=== PATIENT | female | born 1965 | race Caucasian/White ===

== ENCOUNTER 2017-11-30 13:08 | Inpatient (IN) | payer OTHER ==
--- NOTE | 2017-11-30 15:08 | PDOC ---
History of Present Illness <Walter Ortiz - Last Filed: 11/30/17 18:33> - History of Present Illness Initial Comments: 52 yo female with significant past medical history of CKD stage III, diabetic Nephropathy, nephrolithiasis, IDDM w/Diabetic neuropathy, hypertension, Hx of Breast CA s/p CTX (2010) and mastectomy, scleroderma and psoriasis presenting with low blood sugar after an episode of disorientation. States that she ate a large meal last night and stayed up an abnormally long amount of time (until 5: 00 AM watching the [employer] finals). She woke up at 6:00 AM and checked her sugar (280s) took her long acting as prescribed and went back to bed. Woke up at 12:00 slightly confused at which point her (at pt. bedside) noticed she "wasn't quite herself". He gave her two juices and an ensure then called 911 after she still seemed "off". EMS arrived and discovered a FS of 40s , after which they administered another juice. A repeat demonstrated a sugar in the 200s at which point her symptoms were resolving. Denies recent fevers, cough, sob, nausea, vomiting, diarrhea, or constipation. 11/30/17 15:09 <Shayne Wallace - Last Filed: 12/02/17 21:03> - General Chief Complaint: Blood Sugar Problem Stated Complaint: HYPOGLYCEMIA Time Seen by Provider: 11/30/17 15:07 Past History <Walter Ortiz - Last Filed: 11/30/17 18:33> - Past Medical History Anemia: Yes Asthma: No Cancer: Yes (MAY 2010 LEFT BREAST CA) Cardiac Disorders: No CVA: No COPD: No CHF: No Dementia: No Diabetes: Yes (IDDM MANY YEARS) GI Disorders: No Disorders: Yes (kidney stones, stent left) HTN: Yes (HX BORDERLINE, NO MEDS) Hypercholesterolemia: No Liver Disease: Yes (fatty liver) Seizures: No Thyroid Disease: Yes - Surgical History Abdominal Surgery: No Appendectomy: Yes Cardiac Surgery: No Cholecystectomy: No Lung Surgery: No Neurologic Surgery: No Orthopedic Surgery: No - Immunization History Immunization Up to Date: Yes - Suicide/Smoking/Psychosocial Hx Smoking History: Never smoked Have you smoked in the past 12 months: No Number of Cigarettes Smoked Daily: 0 Cigars Per Day: 0 Information on smoking cessation initiated: No Hx Alcohol Use: No Drug/Substance Use Hx: No Substance Use Type: None Hx Substance Use Treatment: No <Shayne Wallace - Last Filed: 12/02/17 21:03> - Past Medical History Allergies/Adverse Reactions: Allergies Allergy/AdvReac Type Severity Reaction Status Date / Time Sulfa (Sulfonamide Allergy Intermediate Hives Verified 11/30/17 13:10 Antibiotics) [Sulfa(Sulfonamide Antibiotics)] terbinafine HCl Allergy Intermediate Rash Verified 11/30/17 13:10 [From Lamisil] Home Medications: Ambulatory Orders Levothyroxine [Synthroid -] 25 mcg PO DAILY@0700 #30 tablet 06/20/14 Metoprolol Succinate [Toprol XL -] 12.5 mg PO DAILY 07/19/14 Insulin (Novolog) [Novolog Flexpen -] 5 units SQ HS 02/14/15 Acetaminophen [Pain Relief] 650 mg PO PRN 11/30/17 Alpha Lipoic Acid 200 mg PO DAILY 11/30/17 Azelastine HCl 137 mcg NS PRN 11/30/17 Mauri Cit/Mag/D3/Zn/Water Pipe Installer/Atif/Bor [Citracal-Vit D + Magnesium Tab] 1 each PO DAILY 11/30/17 Cranberry Fruit Concentrate [Azo Cranberry] 250 mg PO DAILY 11/30/17 Docusate Sodium [Colace] 100 mg PO PRN PRN 11/30/17 Folic Acid 1 mg PO DAILY 11/30/17 Glucagon - 1 mg IJ ASDIR PRN 11/30/17 L. Acidophilus/L.bulgaricus [Floranex Tablet] 1 each PO DAILY 11/30/17 Magnesium Chloride [Slow-Mag -] 64 mg PO DAILY 11/30/17 Multivitamin [One Daily] 1 each PO DAILY 11/30/17 Omeprazole 20 mg PO DAILY 11/30/17 Pramipexole Di-HCl [Pramipexole Dihydrochloride] 0.25 mg PO DAILY 11/30/17 Sennosides [Senna] 8.6 mg PO PRN PRN 11/30/17 Cefuroxime Axetil [Ceftin -] 250 mg PO HS #5 tablet 12/02/17 Insulin (Levemir) [Levemir Vial] 4 units SQ HS ml 12/02/17 Insulin (Levemir) [Levemir Vial] 6 units SQ DAILY@0700 ml 12/02/17 Review of Systems - Review of Systems Constitutional: Yes: Chills, Weakness. No: Fever, Loss of Appetite HEENTM: No: Blurred Vision Respiratory: No: Cough, Shortness of Breath Cardiac (ROS): No: Chest Pain ABD/GI: No: Nausea, Vomiting : No: Dysuria, Urgency Musculoskeletal: No: Back Pain, Joint Pain Integumentary: Yes: Erythema. No: Rash Neurological: No: Headache, Numbness Endocrine: No: Excessive Sweating, Flushing <Shayne Wallace - Last Filed: 12/02/17 21:03> *Physical Exam - Vital Signs Last Vital Signs Temp Pulse Resp BP Pulse Ox 97.7 F 88 16 124/73 100 11/30/17 13:08 11/30/17 17:11 11/30/17 17:11 11/30/17 17:11 11/30/17 17:11 <Walter Ortiz - Last Filed: 11/30/17 18:33> - Vital Signs Last Vital Signs Temp Pulse Resp BP Pulse Ox 97.7 F 79 12 105/54 94 L 11/30/17 13:08 11/30/17 13:08 11/30/17 13:08 11/30/17 13:08 11/30/17 13:08 - Physical Exam General Appearance: Yes: Nourished, Appropriately Dressed. No: Apparent Distress HEENT: positive: EOMI, FLOR, Normal ENT Inspection, Normal Voice Neck: positive: Trachea midline, Normal Thyroid, Supple. negative: Tender, Rigid Respiratory/Chest: positive: Lungs Clear, Normal Breath Sounds. negative: Chest Tender, Respiratory Distress, Accessory Muscle Use Cardiovascular: positive: Regular Rhythm, Regular Rate Vascular Pulses: Dorsalis-Pedis (R): 0 Extremity: positive: Normal Capillary Refill, Normal Range of Motion. negative : Normal Inspection (psoriasis noted on back and lateral neck and right shoulder. Also some erythema on the medial aspect of the distal), Tender Integumentary: positive: Dry, Warm, Ecchymosis. negative: Normal Color Neurologic: positive: Fully Oriented, Alert. negative: Normal Mood/Affect <Shayne Wallace - Last Filed: 12/02/17 21:03> ED Treatment Course - LABORATORY CBC & Chemistry Diagram: 11/30/17 16:05 11/30/17 16:05 - ADDITIONAL ORDERS Additional order review: Laboratory Results 11/30/17 11/30/17 11/30/17 16:44 16:05 14:39 Sodium 135 L Potassium 5.8 H Chloride 99 Carbon Dioxide 18 L Anion Gap 18 H BUN 22 H Creatinine 2.5 H Creat Clearance w eGFR 20.22 POC Glucometer 271.22867 Random Glucose 440 H* Calcium 8.3 L Total Bilirubin 0.6 AST 124 H ALT 50 Alkaline Phosphatase 461 H Total Protein 6.2 L Albumin 2.5 L Urine Color Dkyellow Urine Appearance Slcloudy Urine pH 5.0 D Ur Specific [place] 1.011 Urine Protein 1+ H Urine Glucose (UA) 3+ H Urine Ketones Trace H Urine Blood Negative Urine Nitrite Negative Urine Bilirubin Negative Urine Urobilinogen 4.0 e.u/dl H Ur Leukocyte Esterase 3+ H Urine WBC (Auto) 52 Urine RBC (Auto) 1 Ur Epithelial Cells Rare Urine Bacteria Many Urine Mucus Few 11/30/17 15:36 Influenza Types A,B Antigen (HERMAN) - Final Nasopharyngeal Swab - Final 11/30/17 11/30/17 16:05 14:39 RBC 2.80 L MCV 100.0 H MCHC 32.8 RDW 14.8 MPV 6.8 L Neutrophils % 66.2 D Lymphocytes % 19.4 D Monocytes % 12.1 H Eosinophils % 1.8 Basophils % 0.5 POC Glucometer 271.07921 - Medications Given in the ED: ED Medications Discontinued Medications Generic Name Dose Route Start Last Admin Trade Name Lelo PRN Reason Stop Dose Admin Insulin Human Regular 5 units 11/30/17 17:12 11/30/17 17:52 Novolin R Vial *For Ivpush Or Iv Drip Only* IVPUSH 11/30/17 17:13 5 unit ONCE ONE Administration Sodium Chloride 1,000 ml 11/30/17 16:40 11/30/17 16:45 Normal Saline - IV 11/30/17 16:41 1,000 ml ONCE ONE Administration <Ou,Walter - Last Filed: 11/30/17 18:33> - LABORATORY CBC & Chemistry Diagram: 12/02/17 06:30 12/02/17 06:30 - ADDITIONAL ORDERS Additional order review: Laboratory Results 11/30/17 14:39 POC Glucometer 271.96653 11/30/17 14:39 POC Glucometer 271.21855 <Shayne Wallace - Last Filed: 12/02/17 21:03> Medical Decision Making - Medical Decision Making 52 year old female with "chills" after presenting severely hypoglyemic to EMS ( 40s). FS glucose returned > 400 after multiple juices and a nutritional shake. Given 1 L NS and 5 of regular insulin IV. Originaly reason for hypoglycemia was likely due to no PO intake after long acting insulin administration this morning. Labs returned significant for GENESIS on CKD (2.5 vs. 1.1 3 years prior). Will admit patient for further workup for hypoglycemia and GENESIS on CKD vs significantly worsened CKD and monitoring given increased half life of renally mediated insulin. 12/02/17 20:57 <Shayne Wallace - Last Filed: 12/02/17 21:03> *DC/Admit/Observation/Transfer - Discharge Dispostion Admit: Yes <Walter Ortiz - Last Filed: 11/30/17 18:33> <Shayne Wallace - Last Filed: 12/02/17 21:03> Diagnosis at time of Disposition: Acute renal failure
[2017-11-30 16:14] LABS: BASO % 0.5 % (0-2.0); EOS % 1.8 % (0-4.5); HEMOGLOBIN 9.2 GM/dL (10.7-15.3); LYMPH % 19.4 % (8-40); MCH 32.8 pg (25.7-33.7); MCHC 32.8 g/dl (32.0-36.0); MEAN PLT VOLUME 6.8 fl (7.5-11.1); MONO % 12.1 % (3.8-10.2); NEUT % 66.2 % (42.8-82.8); RDW 14.8 % (11.6-15.6); WHITE BLOOD COUNT 2.6 K/mm3 (4.0-10.0)
[2017-11-30 16:29] LABS: CHLORIDE 99 mmol/L (98-107); SODIUM 135 mmol/L (136-145)
--- NOTE | 2017-11-30 16:32 | PDOC ---
Attending Attestation - Resident Resident Name: Shayne Wallace - ED Attending Attestation I have performed the following: I have examined & evaluated the patient, The case was reviewed & discussed with the resident, I agree w/resident's findings & plan, Exceptions are as noted - HPI HPI: 11/30/17 16:27 52 F with h/o CKD stage III, diabetic Nephropathy, nephrolithiasis, IDDM w/ Diabetic neuropathy, hypertension, Hx of Breast CA s/p CTX (2010) and mastectomy , scleroderma and psoriasis, presenting to ER with episode of hypoglycemia. Pt states that she was up late watching TV. At around 5am, she checked her sugar and found it to be in the 200s, so she subsequently took 6u of long acting insulin. Pt then went to bed without eating anything. When she awoke today, she felt very groggy and confused. Her gave her a juice and called 911. EMS arrived and found pt's sugar to be 47. Pt was given more juice and brought to ER , where her repeat fingerstick was 200s. Pt now reports that she feels back to baseline. Denies any recent F/C. Denies N/V/D. Denies CP/SOB. - Physicial Exam PE: 11/30/17 16:29 "GENERAL: Awake, alert, and fully oriented, in no acute distress HEAD: No signs of trauma EYES: PERRLA, EOMI, sclera anicteric, conjunctiva clear ENT: Auricles normal inspection, hearing grossly normal, nares patent, oropharynx clear without exudates. Moist mucosa NECK: Nontender, no stepoffs, Normal ROM, supple, no lymphadenopathy, JVD, or masses LUNGS: Breath sounds equal, clear to auscultation bilaterally. No wheezes, and no crackles HEART: Regular rate and rhythm, normal S1 and S2, no murmurs, rubs or gallops ABDOMEN: Soft, nontender, normoactive bowel sounds. No guarding, no rebound. No masses EXTREMITIES: Normal range of motion, no edema. No clubbing or cyanosis. No cords, erythema, or tenderness NEUROLOGICAL: Cranial nerves II through XII intact. 5/5 strength and sensation in all extremities, Normal speech, normal gait SKIN: Warm, Dry, normal turgor, no rashes or lesions noted. " - Medical Decision Making 11/30/17 16:29 52 F with hypoglycemia after taking extra insulin. Now normoglycemic s/p juice, with no complaints and normal mental status. - Labs - Repeat fingerstick 11/30/17 18:19 CBC,CMP WBC 2.6 K/mm3 (4.0-10.0) L 11/30/17 16:05 RBC 2.80 M/mm3 (3.60-5.2) L 11/30/17 16:05 Hgb 9.2 GM/dL (10.7-15.3) L D 11/30/17 16:05 Hct 28.0 % (32.4-45.2) L 11/30/17 16:05 MCV 100.0 fl (80-96) H 11/30/17 16:05 MCH 32.8 pg (25.7-33.7) 11/30/17 16:05 MCHC 32.8 g/dl (32.0-36.0) 11/30/17 16:05 RDW 14.8 % (11.6-15.6) 11/30/17 16:05 Plt Count 144 K/MM3 (134-434) D 11/30/17 16:05 MPV 6.8 fl (7.5-11.1) L 11/30/17 16:05 Neutrophils % 66.2 % (42.8-82.8) D 11/30/17 16:05 Lymphocytes % 19.4 % (8-40) D 11/30/17 16:05 Monocytes % 12.1 % (3.8-10.2) H 11/30/17 16:05 Eosinophils % 1.8 % (0-4.5) 11/30/17 16:05 Basophils % 0.5 % (0-2.0) 11/30/17 16:05 Platelet Estimate Decreased 11/30/17 16:05 Platelet Comment No clumping noted 11/30/17 16:05 Sodium 135 mmol/L (136-145) L 11/30/17 16:05 Potassium 5.8 mmol/L (3.5-5.1) H 11/30/17 16:05 Chloride 99 mmol/L (98-107) 11/30/17 16:05 Carbon Dioxide 18 mmol/L (21-32) L 11/30/17 16:05 Anion Gap 18 (8-16) H 11/30/17 16:05 BUN 22 mg/dL (7-18) H 11/30/17 16:05 Creatinine 2.5 mg/dL (0.55-1.02) H 11/30/17 16:05 Creat Clearance w eGFR 20.22 (>60) 11/30/17 16:05 POC Glucometer 271.83623 UNITS (80-120) 11/30/17 14:39 Random Glucose 440 mg/dL (74-106) H* 11/30/17 16:05 Calcium 8.3 mg/dL (8.5-10.1) L 11/30/17 16:05 Total Bilirubin 0.6 mg/dL (0.2-1.0) 11/30/17 16:05 AST 124 U/L (15-37) H 11/30/17 16:05 ALT 50 U/L (12-78) 11/30/17 16:05 Alkaline Phosphatase 461 U/L (45-117) H 11/30/17 16:05 Total Protein 6.2 g/dl (6.4-8.2) L 11/30/17 16:05 Albumin 2.5 g/dl (3.4-5.0) L 11/30/17 16:05 Labs notable for K 5.8 (slightly hemolyzed) and Cr 2.5, bumped from Cr 1 previously. UA also consistent with UTI. Will cover with keflex. Pt's hypoglycemia may be 2/2 poor insulin clearance given worsening renal function. Will admit to hospitalist for further work up of GENESIS.
[2017-11-30 16:35] LABS: ALBUMIN 2.5 g/dl (3.4-5.0); ANION GAP 18 (8-16); BILIRUBIN,TOTAL 0.6 mg/dL (0.2-1.0); BLOOD UREA NITROGEN 22 mg/dL (7-18); CALCIUM 8.3 mg/dL (8.5-10.1); CO2 18 mmol/L (21-32); CREATININE 2.5 mg/dL (0.55-1.02); TOT PROT 6.2 g/dl (6.4-8.2)
[2017-11-30 16:36] LABS: PLATELET COUNT 144 K/MM3 (134-434); PLATELET ESTIMATE DECREASED
[2017-11-30 16:38] LABS: GLUCOSE,RANDOM 440 mg/dL (74-106); POTASSIUM 5.8 mmol/L (3.5-5.1)
[2017-11-30] MEDS ORDERED: SODIUM CHLORIDE 0.9% 1000 ML INFUS.BAG IV ONE (16:40)
[2017-11-30 16:41] LABS: ALK PHOS 461 U/L (45-117); SGPT/ALT 50 U/L (12-78)
[2017-11-30 16:42] LABS: SGOT/AST 124 U/L (15-37)
[2017-11-30 17:09] LABS: URINE APPEARANCE SLCLOUDY; URINE BILIRUBIN NEGATIVE (NEGATIVE); URINE BLOOD NEGATIVE (NEGATIVE); URINE COLOR DKYELLOW; URINE GLUCOSE (UA) 3+ (NEGATIVE); URINE KETONE TRACE (NEGATIVE); URINE NITRITE NEGATIVE (NEGATIVE); URINE UROBILINOGEN 4.0 E.U/dl mg/dL (0.2-1.0)
[2017-11-30 17:10] LABS: URINE LEUK ESTERASE 3+ (NEGATIVE); URINE PROTEIN 1+ (NEGATIVE)
[2017-11-30 17:12] LABS: EPI CELLS RARE /HPF (FEW); URINE BACTERIA MANY /hpf (NONE SEEN); URINE MUCUS FEW
[2017-11-30] MEDS ORDERED: INSULIN REGULAR HUMAN 100 UNITS/ML *VIAL IVPUSH ONE (17:12)
[2017-11-30] MEDS ORDERED: INSULIN REGULAR HUMAN 100 UNITS/ML *VIAL ONE (17:54)
[2017-11-30] MEDS ORDERED: CEPHALEXIN MONOHYDRATE 500 MG CAPSULE (UD) PO ONE (18:32)
[2017-11-30] MEDS ORDERED: CEPHALEXIN MONOHYDRATE 250 MG CAPSULE (FP) ONE (18:37)
[2017-11-30 19:46] LABS: ALBUMIN 2.5 g/dl (3.4-5.0); ANION GAP 13 (8-16); BLOOD UREA NITROGEN 24 mg/dL (7-18); CALCIUM 7.8 mg/dL (8.5-10.1); CHLORIDE 100 mmol/L (98-107); CO2 22 mmol/L (21-32); POTASSIUM 5.6 mmol/L (3.5-5.1); SODIUM 135 mmol/L (136-145)
[2017-11-30 19:49] LABS: ALK PHOS 448 U/L (45-117); BILIRUBIN,TOTAL 0.6 mg/dL (0.2-1.0); CREATININE 2.6 mg/dL (0.55-1.02); SGOT/AST 111 U/L (15-37); SGPT/ALT 47 U/L (12-78)
[2017-11-30 19:52] LABS: GLUCOSE,RANDOM 536 mg/dL (74-106)
[2017-11-30] MEDS ORDERED: INSULIN (NOVOLOG) ASPART 100 UNITS/ML 10ML VIAL SQ ONE (20:19)
--- NOTE | 2017-11-30 20:57 | HP ---
CHIEF COMPLAINT: hypoglycemia PCP: Lion Endo: [facility]/onc: Marcelino HISTORY OF PRESENT ILLNESS: This is a 52 year old female with a significant past medical history of IDDM since age 4 who presented to the ED s/p episode hypglycemia which she treated with several glasses of juice and an ensure. Her blood sugar raquel into 200s with EMS and they transported her here. She states that her usual sleep regimen was interrupted by staying up to watch the [place] [employer] on TV and she slept through her meal even though she had taken her insulin. She reports no complaints on exam. Her BGMs have remained high in the emergency department. ER course was notable for: (1) BUN/Cr elevated (2) Potassium elevated, glucose elevated (3) u/a c/w UTI Recent Travel: pt denies PAST MEDICAL HISTORY: IDDM with nephropathy, CKD stage3, nephrolithiasis, chemo induced neuropathy, HTN, BrCA 2009, scleroderma, psoriasis, fatty liver, B/L wrist fx, tibia fx, osteoporosis PAST SURGICAL HISTORY: appendectomy B/L cataracts 11/18, 02/16 glaucoma surgery Social History: Smoking: pt denies Alcohol: pt denies Drugs: pt denies Family History: CA: Grandparent (paternal grandmother --colon ca//maternal grandmother --breast cancer), Father (colon polyps- precancerous; had kidney stones), Mother (; also was on dialysis; had no diabetes), Other: Sister (kidney stones younger sister) Allergies Sulfa (Sulfonamide Antibiotics) [Sulfa(Sulfonamide Antibiotics)] Allergy ( Intermediate, Verified 11/30/17 13:10) Hives SWELLING terbinafine HCl [From Lamisil] Allergy (Intermediate, Verified 11/30/17 13:10) Rash HOME MEDICATIONS: 3 Medication Instructions Recorded Levothyroxine [Synthroid -] 25 mcg PO DAILY@0700 #30 tablet 06/20/14 Metoprolol Succinate [Toprol XL -] 12.5 mg PO DAILY 07/19/14 Insulin (Levemir) [Levemir Flexpen 6 units SQ DAILY 02/14/15 -] Insulin Levemir 4 units SQ HS 02/14/15 novolog sliding scale with meals BGM 101-150 2u BGM 151-200 3u BGM 201-250 4u BGM 251-300 5u Acetaminophen [Pain Relief] 650 mg PO PRN 11/30/17 Alpha Lipoic Acid 200 mg PO DAILY 11/30/17 Azelastine HCl 137 mcg NS PRN 11/30/17 Mauri Cit/Mag/D3/Zn/Stock Grader/Atif/Bor 1 each PO DAILY 11/30/17 [Citracal-Vit D + Magnesium Tab] Cranberry Fruit Concentrate [Azo 250 mg PO DAILY 11/30/17 Cranberry] Docusate Sodium [Colace] 100 mg PO PRN PRN 11/30/17 Folic Acid 1 mg PO DAILY 11/30/17 Glucagon - 1 mg IJ ASDIR PRN 11/30/17 L. Acidophilus/L.bulgaricus 1 each PO DAILY 11/30/17 [Floranex Tablet] Magnesium Chloride [Slow-Mag -] 64 mg PO DAILY 11/30/17 Multivitamin [One Daily] 1 each PO DAILY 11/30/17 Omeprazole 20 mg PO DAILY 11/30/17 Pramipexole Di-HCl [Pramipexole 0.25 mg PO DAILY 11/30/17 Dihydrochloride] Sennosides [Senna] 8.6 mg PO PRN PRN 11/30/17 pt informs me that she no longer takes any of her supplements or pramipexole. REVIEW OF SYSTEMS CONSTITUTIONAL: Absent: fever, chills, diaphoresis, generalized weakness, malaise, loss of appetite, weight change HEENT: Absent: rhinorrhea, nasal congestion, throat pain, throat swelling, difficulty swallowing, mouth swelling, ear pain, eye pain, visual changes CARDIOVASCULAR: Absent: chest pain, syncope, palpitations, irregular heart rate, lightheadedness , peripheral edema RESPIRATORY: Absent: cough, shortness of breath, dyspnea with exertion, orthopnea, wheezing, stridor, hemoptysis GASTROINTESTINAL: Absent: abdominal pain, abdominal distension, nausea, vomiting, diarrhea, constipation, melena, hematochezia GENITOURINARY: Absent: dysuria, frequency, urgency, hesitancy, hematuria, flank pain, genital pain MUSCULOSKELETAL: Absent: myalgia, arthralgia, joint swelling, back pain, neck pain SKIN: Absent: rash, itching, pallor HEMATOLOGIC/IMMUNOLOGIC: Absent: easy bleeding, easy bruising, lymphadenopathy, frequent infections ENDOCRINE: Absent: unexplained weight gain, unexplained weight loss, heat intolerance, cold intolerance NEUROLOGIC: Present: mental status changes Absent: headache, focal weakness or paresthesias, dizziness, unsteady gait, seizure, bladder or bowel incontinence PSYCHIATRIC: Absent: anxiety, depression, suicidal or homicidal ideation, hallucinations. PHYSICAL EXAMINATION Vital Signs - 24 hr 3 11/30/17 11/30/17 11/30/17 13:08 17:11 20:08 Temperature 97.7 F 98.7 F Pulse Rate 79 Pulse Rate [ 88 85 Left Apical] Respiratory 12 16 24 Rate Blood Pressure 105/54 Blood Pressure 124/73 115/64 [Right Arm] O2 Sat by Pulse 94 L 100 94 L Oximetry (%) GENERAL: Awake, alert, and fully oriented, in no acute distress. HEAD: Normal with no signs of trauma. EYES: Pupils equal, round and reactive to light, extraocular movements intact, sclera anicteric, conjunctiva clear. No lid lag. EARS, NOSE, THROAT: Ears normal, nares patent, oropharynx clear without exudates. Moist mucous membranes. NECK: Normal range of motion, supple without lymphadenopathy, JVD, or masses. LUNGS: Breath sounds equal, clear to auscultation bilaterally. No wheezes, and no crackles. No accessory muscle use. HEART: Regular rate and rhythm, normal S1 and S2 without murmur, rub or gallop. ABDOMEN: Soft, nontender, not distended, normoactive bowel sounds, no guarding, no rebound, no masses. No hepatomegaly or splenomegaly. MUSCULOSKELETAL: Normal range of motion at all joints. No bony deformities or tenderness. No CVA tenderness. UPPER EXTREMITIES: 2+ pulses, warm, well-perfused. No cyanosis. No clubbing. No peripheral edema. LOWER EXTREMITIES: 2+ pulses, warm, well-perfused. No calf tenderness. No peripheral edema. NEUROLOGICAL: Cranial nerves II-XII intact. Normal speech. Normal gait. PSYCHIATRIC: Cooperative. Good eye contact. Appropriate mood and affect. SKIN: Warm, dry, normal turgor, no rashes or lesions noted, normal capillary refill. Laboratory Results - last 24 hr 3 11/30/17 11/30/17 11/30/17 14:39 16:05 16:05 WBC 2.6 L RBC 2.80 L Hgb 9.2 L D Hct 28.0 L MCV 100.0 H MCH 32.8 MCHC 32.8 RDW 14.8 Plt Count 144 D MPV 6.8 L Neutrophils % 66.2 D Lymphocytes % 19.4 D Monocytes % 12.1 H Eosinophils % 1.8 Basophils % 0.5 Platelet Estimate Decreased Platelet Comment No clumping noted Sodium 135 L Potassium 5.8 H Chloride 99 Carbon Dioxide 18 L Anion Gap 18 H BUN 22 H Creatinine 2.5 H Creat Clearance w eGFR 20.22 POC Glucometer 271.07445 Random Glucose 440 H* Calcium 8.3 L Total Bilirubin 0.6 AST 124 H ALT 50 Alkaline Phosphatase 461 H Total Protein 6.2 L Albumin 2.5 L Urine Color Urine Appearance Urine pH Ur Specific [place] Urine Protein Urine Glucose (UA) Urine Ketones Urine Blood Urine Nitrite Urine Bilirubin Urine Urobilinogen Ur Leukocyte Esterase Urine WBC (Auto) Urine RBC (Auto) Ur Epithelial Cells Urine Bacteria Urine Mucus 3 11/30/17 11/30/17 16:44 19:14 WBC RBC Hgb Hct MCV MCH MCHC RDW Plt Count MPV Neutrophils % Lymphocytes % Monocytes % Eosinophils % Basophils % Platelet Estimate Platelet Comment Sodium 135 L Potassium 5.6 H Chloride 100 Carbon Dioxide 22 Anion Gap 13 BUN 24 H Creatinine 2.6 H Creat Clearance w eGFR 19.33 POC Glucometer Random Glucose 536 H* Calcium 7.8 L Total Bilirubin 0.6 AST 111 H ALT 47 Alkaline Phosphatase 448 H Total Protein 6.0 L Albumin 2.5 L Urine Color Dkyellow Urine Appearance Slcloudy Urine pH 5.0 D Ur Specific [place] 1.011 Urine Protein 1+ H Urine Glucose (UA) 3+ H Urine Ketones Trace H Urine Blood Negative Urine Nitrite Negative Urine Bilirubin Negative Urine Urobilinogen 4.0 e.u/dl H Ur Leukocyte Esterase 3+ H Urine WBC (Auto) 52 Urine RBC (Auto) 1 Ur Epithelial Cells Rare Urine Bacteria Many Urine Mucus Few ASSESSMENT/PLAN: 52yF with PMH IDDM with nephropathy, CKD stage3, nephrolithiasis, chemo induced neuropathy, HTN, BrCA 2009, scleroderma, psoriasis, fatty liver, B/L wrist fx, tibia fx, osteoporosis presented to the ED s/p episode of AMS with hypoglycemia. hypoglycemia in setting of IDDM/insulin use - now overcorrected and BGM elevated - home dose of levemir recently reduced from 7uQAM to 6 and 5uHS to 4u, will continue same - likely due to not eating. - now with elevated sugar on repeat CMP, will give 8u novolog, repeat BGM in 2 hours GENESIS in setting of CKD - Pt has labs in her possession with Cr 1.8 in September, now 2.5 - trial hydration, if no improvement will need renal consult, pt sees Maritza Werner anemia - had same in past, pt scheduled to see hem/onc in am as outpatient. Will order consult hypothyroid - cont home synthroid DVT PPX - defer as anticipated LOS <48h, reassess if stays longer FEN - NS @ 75cc/hr - BMP in am - diabetic diet Dispo: Pt currently requires further monitoring and observation for management of her emergent condition. Visit type - Emergency Visit Emergency Visit: Yes ED Registration Date: 11/30/17 Care time: The patient presented to the Emergency Department on the above date and was hospitalized for further evaluation of their emergent condition. - New Patient This patient is new to me today: Yes Date on this admission: 11/30/17 - Critical Care Critical Care patient: No
[2017-11-30] MEDS: CEFUROXIME AXETIL 250 MG TABLET PO SCH (22:10)
[2017-11-30] MEDS: SODIUM CHLORIDE 1,000 ML IV SCH (23:02)
[2017-11-30] MEDS: INSULIN SLIDING SCALE (NOVOLOG) 1 VIAL SQ SCH (23:03)
[2017-11-30] MEDS: INSULIN DETEMIR 100 UNITS/ML MDV SQ SCH (23:04)
[2017-11-30 23:51] VITALS: BMI 30.7
[2017-12-01] MEDS: INSULIN SLIDING SCALE (NOVOLOG) 1 VIAL SQ SCH ×4 (06:26→22:13)
[2017-12-01] MEDS: INSULIN DETEMIR 100 UNITS/ML MDV SQ SCH ×2 (06:27→22:12)
[2017-12-01] MEDS: LEVOTHYROXINE NA 25 MCG TABLET (FP) PO SCH (06:27)
[2017-12-01 07:57] LABS: BASO % 0.6 % (0-2.0); EOS % 6.3 % (0-4.5); HEMATOCRIT 23.6 % (32.4-45.2); HEMOGLOBIN 7.8 GM/dL (10.7-15.3); LYMPH % 15.3 % (8-40); MCH 32.4 pg (25.7-33.7); MCHC 32.9 g/dl (32.0-36.0); MEAN CELL VOLUME 98.5 fl (80-96); MONO % 14.4 % (3.8-10.2); NEUT % 63.4 % (42.8-82.8); PLATELET COUNT 122 K/MM3 (134-434); RDW 14.6 % (11.6-15.6); WHITE BLOOD COUNT 3.9 K/mm3 (4.0-10.0)
[2017-12-01 08:16] LABS: ANION GAP 10 (8-16); BLOOD UREA NITROGEN 24 mg/dL (7-18); CHLORIDE 103 mmol/L (98-107); CO2 25 mmol/L (21-32); CREATININE 2.2 mg/dL (0.55-1.02); GLUCOSE,RANDOM 88 mg/dL (74-106); MAGNESIUM 1.7 mg/dL (1.8-2.4); PHOSPHOROUS 3.8 mg/dL (2.5-4.9); POTASSIUM 5.5 mmol/L (3.5-5.1); SODIUM 138 mmol/L (136-145)
--- NOTE | 2017-12-01 09:16 | PN ---
Progress Note, Physician History of Present Illness: patient seen and examined. Chart reviewed Patient feels better Denies chest pain or shortness of breath Blood sugar is better Passing urine - Current Medication List Current Medications: Active Medications Cefuroxime Axetil (Ceftin -) 250 mg PO HS [facility] Last Admin: 11/30/17 22:10 Dose: 250 mg Folic Acid (Folic Acid -) 1 mg PO DAILY [facility] Sodium Chloride (Normal Saline -) 1,000 mls @ 75 mls/hr IV ASDIR [facility] Last Admin: 11/30/17 23:02 Dose: 75 mls/hr Insulin Aspart (Novolog Vial Sliding Scale -) 1 vial SQ TIDAC [facility] PRN Reason: Protocol Last Admin: 12/01/17 06:26 Dose: Not Given Insulin Aspart (Novolog Vial Sliding Scale -) 1 vial SQ HS [facility] PRN Reason: Protocol Last Admin: 11/30/17 23:03 Dose: Not Given Insulin Detemir (Levemir Vial) 6 units SQ DAILY@0700 [facility] Last Admin: 12/01/17 06:27 Dose: Not Given Insulin Detemir (Levemir Vial) 4 units SQ [facility] Last Admin: 11/30/17 23:04 Dose: 4 unit Levothyroxine Sodium (Synthroid -) 25 mcg PO DAILY@0700 [facility] Last Admin: 12/01/17 06:27 Dose: 25 mcg Metoprolol Succinate (Toprol Xl -) 12.5 mg PO DAILY [facility] Multivitamins/Minerals/Vitamin C (Tab-A-Vit -) 1 tab PO DAILY [facility] Pantoprazole Sodium (Protonix -) 20 mg PO DAILY [facility] - Objective Vital Signs: Vital Signs Temperature 99.3 F 12/01/17 06:21 Pulse Rate 96 H 12/01/17 06:21 Respiratory Rate 20 12/01/17 07:00 Blood Pressure 130/48 12/01/17 06:21 O2 Sat by Pulse Oximetry (%) 94 L 12/01/17 07:00 Constitutional: Yes: No Distress, Calm, Obese Eyes: Yes: Conjunctiva Clear Neck: Yes: Supple Cardiovascular: Yes: Regular Rate and Rhythm Respiratory: Yes: CTA Bilaterally Gastrointestinal: Yes: Soft Edema: No Integumentary: Yes: Other (skin changes consistent with psoriosis) Neurological: Yes: Alert Psychiatric: Yes: Alert Labs: CBC, BMP 12/01/17 06:30 12/01/17 06:30 Problem List - Problems (1) Acute renal failure superimposed on chronic kidney disease Code(s): N17.9 - ACUTE KIDNEY FAILURE, UNSPECIFIED; N18.9 - CHRONIC KIDNEY DISEASE, UNSPECIFIED (2) Diabetes type 1, uncontrolled Code(s): E10.65 - TYPE 1 DIABETES MELLITUS WITH HYPERGLYCEMIA (3) Elevated alkaline phosphatase level Code(s): R74.8 - ABNORMAL LEVELS OF OTHER SERUM ENZYMES (4) Scleroderma Code(s): M34.9 - SYSTEMIC SCLEROSIS, UNSPECIFIED Assessment/Plan clinically better Continue present care Monitor blood sugar Continue hydration Follow-up lites Patient being followed by her PMD--- for other electrolyte abnormalities--- like LFTs/elevated alkaline phosphatase Creatinine--about a month ago--- 1.8 will monitor If better--consider discharge tomorrow Anticipate short stay Will follow Discussed in detail with patient who is in agreement.
[2017-12-01] MEDS: MULTIVITAMINS (DAILY MVI) TABLET (FP) PO SCH (10:53)
[2017-12-01] MEDS: PANTOPRAZOLE 20 MG TABLET (FP) PO SCH (10:53)
[2017-12-01] MEDS: FOLIC ACID 1 MG TABLET (FP) PO SCH (10:53)
[2017-12-01] MEDS: METOPROLOL SUCCINATE 25 MG TAB.SR.24H (FP) PO SCH (10:54)
--- NOTE | 2017-12-01 13:01 | EKG ---
Test Reason : Blood Pressure : / mmHG Vent. Rate : 116 BPM Atrial Rate : 116 BPM P-R Int : 148 ms QRS Dur : 076 ms QT Int : 336 ms P-R-T Axes : 035 022 097 degrees QTc Int : 467 ms SINUS TACHYCARDIA POSSIBLE INFERIOR INFARCT (CITED ON OR BEFORE 11-JUN-2014) POSSIBLE ANTERIOR INFARCT (CITED ON OR BEFORE 11-JUN-2014) ABNORMAL ECG WHEN COMPARED WITH ECG OF 30-NOV-2017 13:40, NO SIGNIFICANT CHANGE WAS FOUND Confirmed by MARGARETH TORRES MD ([id number]) on 12/01/2017 1:01:01 PM Referred By: Confirmed By:MARGARETH TORRES MD
--- NOTE | 2017-12-01 13:05 | EKG ---
Test Reason : Blood Pressure : / mmHG Vent. Rate : 080 BPM Atrial Rate : 080 BPM P-R Int : 130 ms QRS Dur : 082 ms QT Int : 420 ms P-R-T Axes : 048 -01 045 degrees QTc Int : 484 ms NORMAL SINUS RHYTHM INFERIOR INFARCT (CITED ON OR BEFORE 11-JUN-2014) POSSIBLE ANTERIOR INFARCT (CITED ON OR BEFORE 11-JUN-2014) ABNORMAL ECG WHEN COMPARED WITH ECG OF 13-FEB-2015 20:44, VENT. RATE HAS DECREASED Confirmed by MARGARETH TORRES MD ([id number]) on 12/01/2017 1:04:56 PM Referred By: Confirmed By:MARGARETH TORRES MD
--- NOTE | 2017-12-01 19:01 | PN ---
Progress Note (short form) - Note Progress Note: 52 yo female with significant past medical history of CKD stage III, diabetic Nephropathy, nephrolithiasis, IDDM w/Diabetic neuropathy, hypertension, Hx of Breast CA s/p CTX (2010) and mastectomy, scleroderma and psoriasis presenting with low blood sugar -- an episode of disorientation. Also c/o dysuria/frequency - Past Medical History Anemia: Yes Cancer: Yes (MAY 2010 LEFT BREAST CA) Diabetes: Yes (IDDM MANY YEARS) Disorders: Yes (kidney stones, stent left) HTN: Yes (HX BORDERLINE, NO MEDS) Liver Disease: Yes (fatty liver) Thyroid Disease: Yes - Surgical History Appendectomy: Yes b/l mastectomy - Immunization History Immunization Up to Date: Yes - Suicide/Smoking/Psychosocial Hx Smoking History: Never smoked Family h/o extensive family h/o breast cancer Allergies/Adverse Reactions: Allergies Allergy/AdvReac Type Severity Reaction Status Date / Time Sulfa (Sulfonamide Allergy Intermediate Hives Verified 11/30/17 13:10 Antibiotics) [Sulfa(Sulfonamide Antibiotics)] terbinafine HCl Allergy Intermediate Rash Verified 11/30/17 13:10 [From Lamisil] Home Medications: Ambulatory Orders Levothyroxine [Synthroid -] 25 mcg PO DAILY@0700 #30 tablet 06/20/14 Metoprolol Succinate [Toprol XL -] 12.5 mg PO DAILY 07/19/14 Insulin (Levemir) [Levemir Flexpen -] 7 units SQ DAILY 02/14/15 Insulin (Novolog) [Novolog Flexpen -] 5 units SQ HS 02/14/15 Acetaminophen [Pain Relief] 650 mg PO PRN 11/30/17 Alpha Lipoic Acid 200 mg PO DAILY 11/30/17 Azelastine HCl 137 mcg NS PRN 11/30/17 Mauri Cit/Mag/D3/Zn/Players Assistant/Atif/Bor [Citracal-Vit D + Magnesium Tab] 1 each PO DAILY 11/30/17 Cranberry Fruit Concentrate [Azo Cranberry] 250 mg PO DAILY 11/30/17 Docusate Sodium [Colace] 100 mg PO PRN PRN 11/30/17 Folic Acid 1 mg PO DAILY 11/30/17 Glucagon - 1 mg IJ ASDIR PRN 11/30/17 L. Acidophilus/L.bulgaricus [Floranex Tablet] 1 each PO DAILY 11/30/17 Magnesium Chloride [Slow-Mag -] 64 mg PO DAILY 11/30/17 Multivitamin [One Daily] 1 each PO DAILY 11/30/17 Omeprazole 20 mg PO DAILY 11/30/17 Pramipexole Di-HCl [Pramipexole Dihydrochloride] 0.25 mg PO DAILY 11/30/17 Sennosides [Senna] 8.6 mg PO PRN PRN 11/30/17 Active Medications Generic Name Dose Route Start Last Admin Trade Name Freq PRN Reason Stop Dose Admin Cefuroxime Axetil 250 mg 11/30/17 22:00 11/30/17 22:10 Ceftin - PO 250 mg HS [facility] Administration Folic Acid 1 mg 12/01/17 10:00 12/01/17 10:53 Folic Acid - PO 1 mg DAILY [facility] Administration Sodium Chloride 1,000 mls @ 75 mls/hr 11/30/17 20:45 11/30/17 23:02 Normal Saline - IV 75 mls/hr ASDIR [facility] Administration Insulin Aspart 1 vial 12/01/17 07:00 12/01/17 18:07 Novolog Vial Sliding Scale - SQ 6 units TIDAC [facility] Administration Protocol Insulin Aspart 1 vial 11/30/17 22:00 11/30/17 23:03 Novolog Vial Sliding Scale - SQ Not Given HS [facility] Protocol Insulin Detemir 6 units 12/01/17 07:00 12/01/17 06:27 Levemir Vial SQ Not Given DAILY@0700 [facility] Insulin Detemir 4 units 11/30/17 22:00 11/30/17 23:04 Levemir Vial SQ 4 unit HS [facility] Administration Levothyroxine Sodium 25 mcg 12/01/17 07:00 12/01/17 06:27 Synthroid - PO 25 mcg DAILY@0700 [facility] Administration Metoprolol Succinate 12.5 mg 12/01/17 10:00 12/01/17 10:54 Toprol Xl - PO 12.5 mg DAILY [facility] Administration Multivitamins/Minerals/Vitamin C 1 tab 12/01/17 10:00 12/01/17 10:53 Tab-A-Vit - PO 1 tab DAILY [facility] Administration Pantoprazole Sodium 20 mg 12/01/17 10:00 12/01/17 10:53 Protonix - PO 20 mg DAILY [facility] Administration - Vital Signs Last Vital Signs Temp Pulse Resp BP Pulse Ox 99.3 F 77 20 113/57 94 L 12/01/17 16:20 12/01/17 16:20 12/01/17 18:00 12/01/17 16:20 12/01/17 07:00 Cor: RSR, No murmurs, No gallops Lungs: Clear to P&A Abd: Soft, Normal bowel sounds, No organomegaly Ext:No significant edema Abnormal Lab Results 11/30/17 12/01/17 12/01/17 19:14 06:30 06:30 WBC 3.9 L D RBC 2.40 L Hgb 7.8 L D Hct 23.6 L D MCV 98.5 H Plt Count 122 L MPV 7.0 L Monocytes % 14.4 H Eosinophils % 6.3 H D Sodium 135 L Potassium 5.6 H 5.5 H BUN 24 H 24 H Creatinine 2.6 H 2.2 H Random Glucose 536 H* Calcium 7.8 L 8.0 L Magnesium 1.7 L AST 111 H Alkaline Phosphatase 448 H Total Protein 6.0 L Albumin 2.5 L A/P 52 y/o patient with h/o breast cancer in 2009 s/p b/l mastectomies s/p chemotherapy Admitted with hypoglycemia Noted to have to heve UTI On keflex Awaiting final culture and sensitivities suspect mild pancytopenia due to onfgoing infection Abnormal LFTs--check U/S liver
[2017-12-01] MEDS ORDERED: INSULIN (NOVOLOG) ASPART 100 UNITS/ML 10ML VIAL ONE (22:08)
[2017-12-01] MEDS: SODIUM CHLORIDE 1,000 ML IV SCH (22:10)
[2017-12-01] MEDS: CEFUROXIME AXETIL 250 MG TABLET PO SCH (22:12)
[2017-12-02] MEDS: INSULIN DETEMIR 100 UNITS/ML MDV SQ SCH ×2 (06:57→21:09)
[2017-12-02] MEDS: INSULIN SLIDING SCALE (NOVOLOG) 1 VIAL SQ SCH ×4 (06:57→21:10)
[2017-12-02] MEDS: LEVOTHYROXINE NA 25 MCG TABLET (FP) PO SCH (06:58)
[2017-12-02] MEDS ORDERED: INSULIN (NOVOLOG) ASPART 100 UNITS/ML 10ML VIAL ONE (07:06)
[2017-12-02 08:11] LABS: HEMATOCRIT 24.8 % (32.4-45.2); HEMOGLOBIN 8.1 GM/dL (10.7-15.3); MCH 32.5 pg (25.7-33.7); MCHC 32.9 g/dl (32.0-36.0); MEAN CELL VOLUME 98.7 fl (80-96); MEAN PLT VOLUME 7.2 fl (7.5-11.1); PLATELET COUNT 130 K/MM3 (134-434); RBC 2.51 M/mm3 (3.60-5.2); RDW 14.6 % (11.6-15.6); WHITE BLOOD COUNT 2.8 K/mm3 (4.0-10.0)
[2017-12-02 08:13] LABS: ALBUMIN 2.2 g/dl (3.4-5.0); ANION GAP 10 (8-16); BILIRUBIN,TOTAL 0.6 mg/dL (0.2-1.0); BLOOD UREA NITROGEN 22 mg/dL (7-18); CALCIUM 7.4 mg/dL (8.5-10.1); CHLORIDE 106 mmol/L (98-107); CO2 21 mmol/L (21-32); GLUCOSE,RANDOM 136 mg/dL (74-106); POTASSIUM 4.6 mmol/L (3.5-5.1); SGOT/AST 74 U/L (15-37); SGPT/ALT 39 U/L (12-78); SODIUM 137 mmol/L (136-145); TOT PROT 5.1 g/dl (6.4-8.2)
[2017-12-02 08:15] LABS: ALK PHOS 383 U/L (45-117)
--- NOTE | 2017-12-02 09:25 | DS ---
Physical Examination Vital Signs: Vital Signs Temperature 98.6 F 12/02/17 06:00 Pulse Rate 75 12/02/17 06:00 Respiratory Rate 20 12/02/17 06:00 Blood Pressure 136/64 12/02/17 06:00 O2 Sat by Pulse Oximetry (%) 94 L 12/01/17 07:00 Labs: CBC, BMP 12/02/17 06:30 12/02/17 06:30 Discharge Summary Reason For Visit: ACUTE RENAL FAILURE Current Active Problems Acute renal failure (Acute) Acute renal failure superimposed on chronic kidney disease (Acute) - Instructions Referrals: Denzel Seymour MD [Primary Care Provider] - - Home Medications Comprehensive Discharge Medication List: Ambulatory Orders Levothyroxine [Synthroid -] 25 mcg PO DAILY@0700 #30 tablet 06/20/14 Metoprolol Succinate [Toprol XL -] 12.5 mg PO DAILY 07/19/14 Insulin (Novolog) [Novolog Flexpen -] 5 units SQ HS 02/14/15 Acetaminophen [Pain Relief] 650 mg PO PRN 11/30/17 Alpha Lipoic Acid 200 mg PO DAILY 11/30/17 Azelastine HCl 137 mcg NS PRN 11/30/17 Mauri Cit/Mag/D3/Zn/Mural Painter/Atif/Bor [Citracal-Vit D + Magnesium Tab] 1 each PO DAILY 11/30/17 Cranberry Fruit Concentrate [Azo Cranberry] 250 mg PO DAILY 11/30/17 Docusate Sodium [Colace] 100 mg PO PRN PRN 11/30/17 Folic Acid 1 mg PO DAILY 11/30/17 Glucagon - 1 mg IJ ASDIR PRN 11/30/17 L. Acidophilus/L.bulgaricus [Floranex Tablet] 1 each PO DAILY 11/30/17 Magnesium Chloride [Slow-Mag -] 64 mg PO DAILY 11/30/17 Multivitamin [One Daily] 1 each PO DAILY 11/30/17 Omeprazole 20 mg PO DAILY 11/30/17 Pramipexole Di-HCl [Pramipexole Dihydrochloride] 0.25 mg PO DAILY 11/30/17 Sennosides [Senna] 8.6 mg PO PRN PRN 11/30/17 Cefuroxime Axetil [Ceftin -] 250 mg PO HS #5 tablet 12/02/17 Insulin (Levemir) [Levemir Vial] 4 units SQ HS ml 12/02/17 Insulin (Levemir) [Levemir Vial] 6 units SQ DAILY@0700 ml 12/02/17
[2017-12-02] MEDS ORDERED: guaiFENesin/D-M SUGAR-FREE/ACLHOL-FREE 118 ML BOTTLE PO PRN (09:30)
--- NOTE | 2017-12-02 09:31 | PN ---
Progress Note (short form) - Note Progress Note: patient seen and examined. just came back from ultrasound Hematology consult noted and appreciated Start her on antibiotics for possible UTI Patient feels weak but better Blood sugar better Vital Signs Temp 98.6 F 12/02/17 06:00 Pulse 75 12/02/17 06:00 Resp 20 12/02/17 06:00 BP 136/64 12/02/17 06:00 Pulse Ox 94 L 12/01/17 07:00 Intake & Output 12/01/17 12/01/17 12/02/17 11:59 23:59 11:59 Intake Total 500 740 600 Balance 500 740 600 Intake: IV 300 300 600 Normal Saline - 1,000 ml 300 300 600 @ 75 mls/hr IV ASDIR [facility] Rx#:[id number] Oral 200 440 Other: Voiding Method Incontinent Incontinent # Unmeasured Voids Void 1 2 Bowel Movement No # Bowel Movements 0 Active Medications Cefuroxime Axetil (Ceftin -) [address] [facility] Last Admin: 12/01/17 22:12 Dose: 250 mg Folic Acid (Folic Acid -) 1 mg PO DAILY [facility] Last Admin: 12/01/17 10:53 Dose: 1 mg Guaifenesin (Diabetic Tussin Dm -) 5 ml PO Q6H PRN PRN Reason: COUGH Sodium Chloride (Normal Saline -) 1,000 mls @ 75 mls/hr IV ASDIR [facility] Last Admin: 12/01/17 22:10 Dose: Not Given Insulin Aspart (Novolog Vial Sliding Scale -) 1 vial SQ TIDAC [facility] PRN Reason: Protocol Last Admin: 12/02/17 06:57 Dose: 2 units Insulin Aspart (Novolog Vial Sliding Scale -) [address] [facility] PRN Reason: Protocol Last Admin: 12/01/17 22:13 Dose: 3 unit Insulin Detemir (Levemir Vial) 6 units SQ DAILY@0700 [facility] Last Admin: 12/02/17 06:57 Dose: 6 500s Insulin Detemir (Levemir Vial) [address] [facility] Last Admin: 12/01/17 22:12 Dose: 4 unit Levothyroxine Sodium (Synthroid -) 25 mcg PO DAILY@0700 [facility] Last Admin: 12/02/17 06:58 Dose: 25 mcg Metoprolol Succinate (Toprol Xl -) 12.5 mg PO DAILY [facility] Last Admin: 12/01/17 10:54 Dose: 12.5 mg Multivitamins/Minerals/Vitamin C (Tab-A-Vit -) 1 tab PO DAILY [facility] Last Admin: 12/01/17 10:53 Dose: 1 tab Pantoprazole Sodium (Protonix -) 20 mg PO DAILY [facility] Last Admin: 12/01/17 10:53 Dose: 20 mg CBC, BMP 12/02/17 06:30 12/02/17 06:30 physical exam Constitutional: Yes: No Distress, Calm, Obese Eyes: Yes: Conjunctiva Clear Neck: Yes: Supple, no JVD Cardiovascular: Yes: Regular Rate and Rhythm Respiratory: Yes: CTA Bilaterally Gastrointestinal: Yes: Soft/non tender Edema: No Integumentary: Yes: Other (skin changes consistent with psoriosis) Neurological: Yes: Alert Psychiatric: Yes: Alert Assessment/Plan clinically looks better Continue present care Monitor blood sugar Continue hydration creatinine better Follow-up ultrasound Antibiotics Follow-up urine culture Overall improved If better--we will consider discharge tomorrow Will follow Problem List - Problems (1) Acute renal failure superimposed on chronic kidney disease Code(s): N17.9 - ACUTE KIDNEY FAILURE, UNSPECIFIED; N18.9 - CHRONIC KIDNEY DISEASE, UNSPECIFIED (2) Diabetes type 1, uncontrolled Code(s): E10.65 - TYPE 1 DIABETES MELLITUS WITH HYPERGLYCEMIA (3) Elevated alkaline phosphatase level Code(s): R74.8 - ABNORMAL LEVELS OF OTHER SERUM ENZYMES (4) Scleroderma Code(s): M34.9 - SYSTEMIC SCLEROSIS, UNSPECIFIED
--- NOTE | 2017-12-02 10:00 | CON.NEP ---
Consult Consult Specialty:: Nephrolgoy Referred by:: Dr. Oswald Reason for Consultation:: GENESIS on CKD - History of Present Illness Chief Complaint: Hypoglycemia History of Present Illness: This is a 52 year old woman with PMhx of CKD stage 3 (baseline Cr ?1.8), insulin dependent DM, Psoriasis, Hx of breast Ca who presented to the ED with hypoglycemia and found to have UTI and GENESIS. Pt reports +NSIAD use at home. No JUN/ARB use at home. + PPI. No flank pain, hematuria, dysuria, N/V. + Diarrehea. + Skin rash from psoriasis. No SOB or chest pain. No Leg swelling. As inpateint renal function with improvement on IVF. Pt is making urine. 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 breast cancer--2009. 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 s/p bilateral mastectomies/axillary lymphadenectomy. s/p RT to Lt. chestwall. s/p adjuvant chemotherapy - Past Surgical History Past Surgical History: Yes: Appendectomy, , Mastectomy - Alcohol/Substance Use Hx Alcohol Use: No - Smoking History Smoking history: Never smoked Have you smoked in the past 12 months: No Aproximately how many cigarettes per day: 0 - Social History ADL: Family Assistance History of Recent Travel: No Home Medications - Allergies Allergies/Adverse Reactions: Allergies Allergy/AdvReac Type Severity Reaction Status Date / Time Sulfa (Sulfonamide Allergy Intermediate Hives Verified 11/30/17 13:10 Antibiotics) [Sulfa(Sulfonamide Antibiotics)] terbinafine HCl Allergy Intermediate Rash Verified 11/30/17 13:10 [From Lamisil] - Home Medications Home Medications: Ambulatory Orders Levothyroxine [Synthroid -] 25 mcg PO DAILY@0700 #30 tablet 06/20/14 Metoprolol Succinate [Toprol XL -] 12.5 mg PO DAILY 07/19/14 Insulin (Novolog) [Novolog Flexpen -] 5 units SQ HS 02/14/15 Acetaminophen [Pain Relief] 650 mg PO PRN 11/30/17 Alpha Lipoic Acid 200 mg PO DAILY 11/30/17 Azelastine HCl 137 mcg NS PRN 11/30/17 Mauri Cit/Mag/D3/Zn/Bakery Team Member/Atif/Bor [Citracal-Vit D + Magnesium Tab] 1 each PO DAILY 11/30/17 Cranberry Fruit Concentrate [Azo Cranberry] 250 mg PO DAILY 11/30/17 Docusate Sodium [Colace] 100 mg PO PRN PRN 11/30/17 Folic Acid 1 mg PO DAILY 11/30/17 Glucagon - 1 mg IJ ASDIR PRN 11/30/17 L. Acidophilus/L.bulgaricus [Floranex Tablet] 1 each PO DAILY 11/30/17 Magnesium Chloride [Slow-Mag -] 64 mg PO DAILY 11/30/17 Multivitamin [One Daily] 1 each PO DAILY 11/30/17 Omeprazole 20 mg PO DAILY 11/30/17 Pramipexole Di-HCl [Pramipexole Dihydrochloride] 0.25 mg PO DAILY 11/30/17 Sennosides [Senna] 8.6 mg PO PRN PRN 11/30/17 Cefuroxime Axetil [Ceftin -] 250 mg PO HS #5 tablet 12/02/17 Insulin (Levemir) [Levemir Vial] 4 units SQ HS ml 12/02/17 Insulin (Levemir) [Levemir Vial] 6 units SQ DAILY@0700 ml 12/02/17 Family Disease History - Family Disease History Family Disease History: CA: Grandparent (paternal grandmother --colon ca// maternal grandmother --breast cancer), Father (colon polyps- precancerous; had kidney stones), Mother (; also was on dialysis; had no diabetes), Other: Sister (kidney stones younger sister) Review of Systems - Review of Systems Constitutional: reports: No Symptoms Eyes: reports: No Symptoms HENT: reports: No Symptoms Neck: reports: No Symptoms Cardiovascular: reports: No Symptoms Respiratory: reports: No Symptoms Gastrointestinal: reports: No Symptoms Genitourinary: reports: No Symptoms Musculoskeletal: reports: No Symptoms Integumentary: reports: No Symptoms Neurological: reports: No Symptoms Endocrine: reports: No Symptoms Nephrology Consult - Height Height: 4 ft 11 in - Weight Weight: 68.946 kg - BMI Body Mass Index (BMI): 30.7 - Lab Results CBC,BMP: CBC, BMP 12/02/17 06:30 12/02/17 06:30 Anion Gap: Anion Gap Anion Gap 10 (8-16) 12/02/17 06:30 - Imaging Chest X-ray: Report Reviewed - Physical Examination Vital Signs: Vital Signs Temperature 98.6 F 12/02/17 06:00 Pulse Rate 75 12/02/17 06:00 Respiratory Rate 20 12/02/17 06:00 Blood Pressure 136/64 12/02/17 06:00 O2 Sat by Pulse Oximetry (%) 94 L 12/01/17 07:00 Constitutional: Yes: No Distress, Calm Eyes: Yes: Conjunctiva Clear HENT: Yes: Atraumatic Neck: Yes: Supple Cardiovascular: Yes: Regular Rate and Rhythm. No: Murmur Respiratory: Yes: Regular, CTA Bilaterally. No: Rales, Rhonchi, Wheezes Gastrointestinal: Yes: Normal Bowel Sounds, Soft. No: Tenderness Renal/: No: Bladder Distention, CVA Tenderness - Left, CVA Tenderness - Right , Mccann Present Extremities: No: Cold, Cool, Cyanosis Edema: No Neurological: Yes: Alert, Oriented Assessment/Plan 52 year old woman with PMhx of CKD stage 3 (baseline Cr ?1.8), insulin dependent DM, Psoriasis who presented to the ED with hypoglycemia and found to have UTI and GENESIS. #GENESIS on CKD etiology is likely multifactorial: Volume depletion in setting of infection +/- NSAID induced renal hypoprofusion Check urine studies no acute indication for US as pt is voiding and w/o symptoms of retention would continue isotonic saline for 12 more hours dose all meds for CrCl less then 30 avoid JUN/ARB, NSAIDs and IV contrast for now pt would benefit from starting JUN/ARB as outpatient no acute indication for SEISMIC COMPUTER #UTI Continue Abx as per primary #Leukopenia/Thrombocytopenia Heme following, suspect that changes are from acute infection trend for now #Anemia Trend CBC Check iron studies #Abnormal liver function improving #IDDM continue insulin as per primary Thank you for this kind referral will schedule outpatient follow up on discharge as well Efraín Guillory DO
[2017-12-02] MEDS: PANTOPRAZOLE 20 MG TABLET (FP) PO SCH (10:14)
[2017-12-02] MEDS: MULTIVITAMINS (DAILY MVI) TABLET (FP) PO SCH (10:14)
[2017-12-02] MEDS: FOLIC ACID 1 MG TABLET (FP) PO SCH (10:14)
[2017-12-02] MEDS: METOPROLOL SUCCINATE 25 MG TAB.SR.24H (FP) PO SCH (10:14)
[2017-12-02] MEDS ORDERED: SODIUM CHLORIDE 1,000 ML IV SCH (10:15)
--- NOTE | 2017-12-02 12:10 | PN ---
Progress Note (short form) - Note Progress Note: Patient seen and examined. O/E Cor: RSR, No murmurs, No gallops Lungs: Clear to P&A Abd: Soft, Normal bowel sounds, No organomegaly Ext:No significant edema Temp Pulse Resp BP Pulse Ox 98.6 F 109 H 18 141/76 94 L 12/02/17 09:00 12/02/17 09:00 12/02/17 09:00 12/02/17 09:00 12/01/17 07:00 CBC, BMP 12/02/17 06:30 12/02/17 06:30 Current Medications Generic Name Dose Route Start Last Admin Trade Name Freq PRN Reason Stop Dose Admin Cefuroxime Axetil 250 mg 11/30/17 22:00 12/01/17 22:12 Ceftin - PO 250 mg HS [facility] Administration Folic Acid 1 mg 12/01/17 10:00 12/02/17 10:14 Folic Acid - PO 1 mg DAILY [facility] Administration Guaifenesin 5 ml 12/02/17 09:30 Diabetic Tussin Dm - PO Q6H PRN COUGH Sodium Chloride 1,000 mls @ 75 mls/hr 11/30/17 20:45 12/01/17 22:10 Normal Saline - IV Not Given ASDIR [facility] Sodium Chloride 1,000 mls @ 83 mls/hr 12/02/17 10:15 12/02/17 10:15 Normal Saline - IV 12/02/17 22:14 83 mls/hr ASDIR [facility] Administration Insulin Aspart 1 vial 12/01/17 07:00 12/02/17 11:57 Novolog Vial Sliding Scale - SQ Not Given TIDAC [facility] Protocol Insulin Aspart 1 vial 11/30/17 22:00 12/01/17 22:13 Novolog Vial Sliding Scale - SQ 3 unit HS [facility] Administration Protocol Insulin Detemir 6 units 12/01/17 07:00 12/02/17 06:57 Levemir Vial SQ 6 500s DAILY@0700 [facility] Administration Insulin Detemir 4 units 11/30/17 22:00 12/01/17 22:12 Levemir Vial SQ 4 unit HS [facility] Administration Levothyroxine Sodium 25 mcg 12/01/17 07:00 12/02/17 06:58 Synthroid - PO 25 mcg DAILY@0700 [facility] Administration Metoprolol Succinate 12.5 mg 12/01/17 10:00 12/02/17 10:14 Toprol Xl - PO 12.5 mg DAILY [facility] Administration Multivitamins/Minerals/Vitamin C 1 tab 12/01/17 10:00 12/02/17 10:14 Tab-A-Vit - PO 1 tab DAILY [facility] Administration Pantoprazole Sodium 20 mg 12/01/17 10:00 12/02/17 10:14 Protonix - PO 20 mg DAILY [facility] Administration 52 y/o patient with h/o breast cancer in 2009 s/p b/l mastectomies s/p chemotherapy Admitted with hypoglycemia Noted to have to heve UTI On keflex Awaiting final culture and sensitivities suspect mild pancytopenia due to ongoing infection, was persistent before, ( mentioned in 's note 2015 ) Abnormal LFTs--from alcoholism, recurred per pt, continues to drink 3-4cans , US reviewed, fatty liver. CBC/LFTs, apart from infection, could also be explained by ETOH.
[2017-12-02] MEDS ORDERED: PT OWN MED DRAWER 7, Y5N ONE ×2 (18:08→20:59)
[2017-12-02] MEDS: CEFUROXIME AXETIL 250 MG TABLET PO SCH (21:08)
[2017-12-02] MEDS: SODIUM CHLORIDE 1,000 ML IV SCH (21:11)
[2017-12-03] MEDS: INSULIN SLIDING SCALE (NOVOLOG) 1 VIAL SQ SCH ×2 (06:24→11:30)
[2017-12-03] MEDS: INSULIN DETEMIR 100 UNITS/ML MDV SQ SCH (06:28)
[2017-12-03] MEDS: LEVOTHYROXINE NA 25 MCG TABLET (FP) PO SCH (06:28)
[2017-12-03 06:43] VITALS: TEMP 98.3
[2017-12-03 06:44] LABS: BASO % 1.1 % (0-2.0); EOS % 7.1 % (0-4.5); HEMATOCRIT 26.4 % (32.4-45.2); HEMOGLOBIN 8.5 GM/dL (10.7-15.3); LYMPH % 21.7 % (8-40); MCH 32.2 pg (25.7-33.7); MCHC 32.3 g/dl (32.0-36.0); MEAN CELL VOLUME 99.6 fl (80-96); MEAN PLT VOLUME 7.3 fl (7.5-11.1); MONO % 15.1 % (3.8-10.2); PLATELET COUNT 136 K/MM3 (134-434); RBC 2.65 M/mm3 (3.60-5.2); WHITE BLOOD COUNT 3.3 K/mm3 (4.0-10.0)
[2017-12-03 07:16] LABS: CHLORIDE 107 mmol/L (98-107); SODIUM 139 mmol/L (136-145)
[2017-12-03 07:26] LABS: ALBUMIN 2.2 g/dl (3.4-5.0); ALK PHOS 366 U/L (45-117); ANION GAP 11 (8-16); BILIRUBIN,TOTAL 0.6 mg/dL (0.2-1.0); BLOOD UREA NITROGEN 20 mg/dL (7-18); CO2 21 mmol/L (21-32); CREATININE 1.8 mg/dL (0.55-1.02); GLUCOSE,RANDOM 123 mg/dL (74-106); SGOT/AST 95 U/L (15-37); SGPT/ALT 43 U/L (12-78); TOT PROT 5.3 g/dl (6.4-8.2)
[2017-12-03 08:52] VITALS: BP 158/73; PULSE 95
--- NOTE | 2017-12-03 09:20 | DS ---
Physical Examination Vital Signs: Vital Signs Temperature 98.3 F 12/03/17 08:51 Pulse Rate 95 H 12/03/17 08:51 Respiratory Rate 18 12/03/17 08:51 Blood Pressure 158/73 12/03/17 08:51 O2 Sat by Pulse Oximetry (%) 100 12/02/17 21:00 Findings/Remarks: feels well no complains wants to go home all f/u noted/ appreciated denies cp/sob/abd pain Constitutional: Yes: No Distress, Calm Neck: Yes: Supple Cardiovascular: Yes: Regular Rate and Rhythm Respiratory: Yes: CTA Bilaterally Gastrointestinal: Yes: Soft Edema: No Neurological: Yes: Alert Labs: CBC, BMP 12/03/17 05:35 12/03/17 05:35 Discharge Summary Reason For Visit: ACUTE RENAL FAILURE Current Active Problems Acute renal failure (Acute) Acute renal failure superimposed on chronic kidney disease (Acute) Hospital Course: This is a 52 year old female with a significant past medical history of IDDM since age 4 who presented to the ED s/p episode hypglycemia which she treated with several glasses of juice and an ensure. Her blood sugar raquel into 200s with EMS and they transported her here. She states that her usual sleep regimen was interrupted by staying up to watch the turk[place] open on TV and she slept through her meal even though she had taken her insulin. She reports no complaints on exam. Her BGMs have remained high in the emergency department. ER course was notable for: (1) BUN/Cr elevated (2) Potassium elevated, glucose elevated (3) u/a c/w UTI Recent Travel: pt denies PAST MEDICAL HISTORY: IDDM with nephropathy, CKD stage3, nephrolithiasis, chemo induced neuropathy, HTN, BrCA 2009, scleroderma, psoriasis, fatty liver, B/L wrist fx, tibia fx, osteoporosis PAST SURGICAL HISTORY: appendectomy B/L cataracts 11/18, 02/16 glaucoma surgery Pt treated with fluids/ abx cr much better pt admits takes nsaids frequently- advised not to do that bgm - hypoglycemia resolved u/c- gm -ve bacilli on ceftin u/s liver- fatty infiltration pt now stable for d/c pt to continue to follow up with her pmd/ specialists as advised strongly advised to follow with her pmd in one week. Pt in agreement discussed with nursing staff also D/c time 30 min in examining/ documenting and coordating care. Condition: Improved - Instructions Referrals: Denzel Seymour MD [Primary Care Provider] - Disposition: HOME - Home Medications Comprehensive Discharge Medication List: Ambulatory Orders Levothyroxine [Synthroid -] 25 mcg PO DAILY@0700 #30 tablet 06/20/14 Metoprolol Succinate [Toprol XL -] 12.5 mg PO DAILY 07/19/14 Insulin (Novolog) [Novolog Flexpen -] 5 units SQ HS 02/14/15 Acetaminophen [Pain Relief] 650 mg PO PRN 11/30/17 Alpha Lipoic Acid 200 mg PO DAILY 11/30/17 Azelastine HCl 137 mcg NS PRN 11/30/17 Mauri Cit/Mag/D3/Zn/Mailing Machine Helper/Atif/Bor [Citracal-Vit D + Magnesium Tab] 1 each PO DAILY 11/30/17 Cranberry Fruit Concentrate [Azo Cranberry] 250 mg PO DAILY 11/30/17 Docusate Sodium [Colace] 100 mg PO PRN PRN 11/30/17 Folic Acid 1 mg PO DAILY 11/30/17 Glucagon - 1 mg IJ ASDIR PRN 11/30/17 L. Acidophilus/L.bulgaricus [Floranex Tablet] 1 each PO DAILY 11/30/17 Magnesium Chloride [Slow-Mag -] 64 mg PO DAILY 11/30/17 Multivitamin [One Daily] 1 each PO DAILY 11/30/17 Omeprazole 20 mg PO DAILY 11/30/17 Pramipexole Di-HCl [Pramipexole Dihydrochloride] 0.25 mg PO DAILY 11/30/17 Sennosides [Senna] 8.6 mg PO PRN PRN 11/30/17 Cefuroxime Axetil [Ceftin -] 250 mg PO HS #5 tablet 12/02/17 Insulin (Levemir) [Levemir Vial] 4 units SQ HS ml 12/02/17 Insulin (Levemir) [Levemir Vial] 6 units SQ DAILY@0700 ml 12/02/17 Guaifenesin/D-Methorphan Hb [Diabetic Tussin Dm -] 5 ml PO Q6H PRN ml 12/03/17
[2017-12-03] MEDS: PANTOPRAZOLE 20 MG TABLET (FP) PO SCH (09:47)
[2017-12-03] MEDS: MULTIVITAMINS (DAILY MVI) TABLET (FP) PO SCH (09:47)
[2017-12-03] MEDS: FOLIC ACID 1 MG TABLET (FP) PO SCH (09:47)
[2017-12-03] MEDS: METOPROLOL SUCCINATE 25 MG TAB.SR.24H (FP) PO SCH (09:47)
== END 2017-12-03 11:06 | disposition home or self-care (01) | DRG 683 ==
LOC: JER 13:08 → JERBED 18:33 → J8W 21:12
PROVIDERS: ADMIT Internal Medicine; ATTEND Internal Medicine
DX: N17.9 Acute kidney failure, unspecified (principal); N39.0 Urinary tract infection, site not specified; B96.89 Other specified bacterial agents as the cause of diseases classified elsewhere; T38.3X1A Poisoning by insulin and oral hypoglycemic [antidiabetic] drugs, accidental (unintentional), initial encounter; E11.649 Type 2 diabetes mellitus with hypoglycemia without coma; E11.22 Type 2 diabetes mellitus with diabetic chronic kidney disease; I12.9 Hypertensive chronic kidney disease with stage 1 through stage 4 chronic kidney disease, or unspecified chronic kidney disease; N18.3 Chronic kidney disease, stage 3 (moderate); Z79.4 Long term (current) use of insulin; E11.21 Type 2 diabetes mellitus with diabetic nephropathy; Z85.3 Personal history of malignant neoplasm of breast; Z90.12 Acquired absence of left breast and nipple; M34.9 Systemic sclerosis, unspecified; D64.9 Anemia, unspecified; K76.0 Fatty (change of) liver, not elsewhere classified; L40.9 Psoriasis, unspecified; Y92.018 Other place in single-family (private) house as the place of occurrence of the external cause; M81.0 Age-related osteoporosis without current pathological fracture; E03.9 Hypothyroidism, unspecified; E66.9 Obesity, unspecified; Z68.30 Body mass index [BMI] 30.0-30.9, adult; E11.40 Type 2 diabetes mellitus with diabetic neuropathy, unspecified
CPT/HCPCS: 36415; 76705-TC; 80048; 80053; 81003; 81015; 82570; 82962; 83735; 84100; 84156; 84300; 84540; 85025; 85027; 87086; 87186; 87804; 93005; 93010; 97116-GP; 97161-GP; 99283-25

== ENCOUNTER 2018-05-07 09:37 | Inpatient (IN) | payer OTHER ==
--- NOTE | 2018-05-07 09:40 | PDOC ---
History of Present Illness - General Stated Complaint: Weakness Time Seen by Provider: 05/07/18 09:39 - History of Present Illness Initial Comments: 05/07/18 09:39 Ms. Dixon is a 52 yo female w/ pmh of CKD stage III, IDDM, diabetic nephropathy, nephrolithiasis, HTN, HLD, Breast CA s/p nanda mastectomy, scleroderma, and psoriasis who presents for evaluation of 4-5 day history of generalized weakness. She further describes chest itchiness she attributes to her psoriasis and relates that she has been scratching at it. The patient denies chest pain, shortness of breath, headache and dizziness. Denies fever, chills, nausea, vomit, diarrhea and constipation. Denies dysuria, frequency, urgency and hematuria. Allergies: Sulfa drugs, terbinafine Past History - Past Medical History Allergies/Adverse Reactions: Allergies Allergy/AdvReac Type Severity Reaction Status Date / Time Sulfa (Sulfonamide Allergy Intermediate Hives Verified 11/30/17 13:10 Antibiotics) [Sulfa(Sulfonamide Antibiotics)] terbinafine HCl Allergy Intermediate Rash Verified 11/30/17 13:10 [From Lamisil] Home Medications: Ambulatory Orders Levothyroxine [Synthroid -] 25 mcg PO DAILY@0700 #30 tablet 06/20/14 Metoprolol Succinate [Toprol XL -] 12.5 mg PO DAILY 07/19/14 Insulin (Novolog) [Novolog Flexpen -] 5 units SQ HS 02/14/15 Mauri Cit/Mag/D3/Zn/Computer Clerk/Atif/Bor [Citracal-Vit D + Magnesium Tab] 1 each PO DAILY 11/30/17 Multivitamin [One Daily] 1 each PO DAILY 11/30/17 Omeprazole 20 mg PO DAILY 11/30/17 Insulin (Levemir) [Levemir Vial] 4 units SQ HS ml 12/02/17 Insulin (Levemir) [Levemir Vial] 6 units SQ DAILY@0700 ml 12/02/17 Ramipril 2.5 mg PO DAILY 05/07/18 Anemia: Yes Cancer: Yes (MAY 2010 LEFT BREAST CA) Diabetes: Yes (IDDM MANY YEARS) Disorders: Yes (kidney stones, stent left) HTN: Yes (HX BORDERLINE, NO MEDS) Liver Disease: Yes (fatty liver) Thyroid Disease: Yes - Surgical History Appendectomy: Yes - Immunization History Immunization Up to Date: Yes - Suicide/Smoking/Psychosocial Hx Smoking History: Never smoked Have you smoked in the past 12 months: No Number of Cigarettes Smoked Daily: 0 Cigars Per Day: 0 Hx Alcohol Use: No Drug/Substance Use Hx: No Substance Use Type: None Hx Substance Use Treatment: No Review of Systems - Review of Systems Comments:: 05/07/18 09:40 GENERAL/CONSTITUTIONAL: +Generalized weakness. No fevers or chills. HEAD, EYES, EARS, NOSE AND THROAT: No change in vision. No ear pain or discharge. No sore throat. CARDIOVASCULAR: No chest pain or shortness of breath RESPIRATORY: No cough, wheezing, or hemoptysis. GASTROINTESTINAL: No nausea, vomiting, diarrhea or constipation. GENITOURINARY: No dysuria, frequency, or change in urination. MUSCULOSKELETAL: +Generalized psoriasis with scratching SKIN: No rash NEUROLOGIC: No headache, vertigo, loss of consciousness, or change in strength/ sensation. ENDOCRINE: No increased thirst. No abnormal weight change HEMATOLOGIC/LYMPHATIC: No anemia, easy bleeding, or history of blood clots. ALLERGIC/IMMUNOLOGIC: No hives or skin allergy. *Physical Exam - Physical Exam Comments: 05/07/18 09:40 GENERAL: Awake, alert, and fully oriented, in no acute distress HEAD: No signs of trauma, normocephalic, atraumatic EYES: PERRLA, EOMI, sclera anicteric, conjunctiva clear ENT: Auricles normal inspection, hearing grossly normal, nares patent, oropharynx clear without exudates. Moist mucosa NECK: Normal ROM, supple, no lymphadenopathy, JVD, or masses LUNGS: +Approx. 10 cm excoriations bilaterally at breast locations with surrounding erythema. Back covered in scales c/w advanced psoriasis. No distress , speaks full sentences, clear to auscultation bilaterally HEART: +Tachycardic to 115. Regular rhythm, normal S1 and S2, no murmurs, rubs or gallops, peripheral pulses normal and equal bilaterally. ABDOMEN: Soft, nontender, normoactive bowel sounds. No guarding, no rebound. No masses EXTREMITIES: Normal inspection, Normal range of motion, no edema. No clubbing or cyanosis. NEUROLOGICAL: Cranial nerves II through XII grossly intact. Normal speech, normal gait, no focal sensorimotor deficits SKIN: Warm, Dry, normal turgor, no rashes or lesions noted. ED Treatment Course - LABORATORY CBC & Chemistry Diagram: 05/07/18 10:20 05/07/18 10:20 Medical Decision Making - Medical Decision Making 05/07/18 14:03 Ms. Dixon is a 52 yo female w/ pmh as described who presents for evaluation of generalized weakness; noted to have UTI and cellulitic breast infection. Sepsis workup started on patient presentation given patient's tachycardia to 115 and noted infection site at breasts nanda. Labs as below significant for elevated lactate and flagrant UTI. 1L NS and Rocephin given for treatment. Will admit patient for further evaluation. Laboratory Results - last 24 hr 05/07/18 05/07/18 05/07/18 10:20 10:20 10:20 WBC 4.8 RBC 2.60 L Hgb 8.6 L Hct 25.4 L MCV 97.9 H MCH 33.3 MCHC 34.0 RDW 14.6 Plt Count 351 D MPV 8.0 Absolute Neuts (auto) 3.3 Neutrophils % 68.8 D Lymphocytes % 16.4 D Monocytes % 12.6 H Eosinophils % 1.8 Basophils % 0.4 Nucleated RBC % 0 Platelet Estimate Adequate Platelet Comment PT with INR Cancelled INR Cancelled PTT (Actin FS) Cancelled VBG pH 7.42 POC VBG pCO2 41.4 POC VBG pO2 20.4 L Mixed VBG HCO3 26.4 H Sodium Potassium Chloride Carbon Dioxide Anion Gap BUN Creatinine Creat Clearance w eGFR Random Glucose Lactic Acid Calcium Total Bilirubin AST ALT Alkaline Phosphatase Troponin I Total Protein Albumin Urine Color Urine Appearance Urine pH Ur Specific Aiken Urine Protein Urine Glucose (UA) Urine Ketones Urine Blood Urine Nitrite Urine Bilirubin Urine Urobilinogen Ur Leukocyte Esterase Urine WBC (Auto) Urine RBC (Auto) Ur Epithelial Cells Urine Bacteria Urine Mucus 05/07/18 05/07/18 05/07/18 10:20 10:20 10:44 WBC RBC Hgb Hct MCV MCH MCHC RDW Plt Count MPV Absolute Neuts (auto) Neutrophils % Lymphocytes % Monocytes % Eosinophils % Basophils % Nucleated RBC % Platelet Estimate Platelet Comment PT with INR INR PTT (Actin FS) VBG pH POC VBG pCO2 POC VBG pO2 Mixed VBG HCO3 Sodium 136 Potassium 4.9 Chloride 100 Carbon Dioxide 26 Anion Gap 10 BUN 13 Creatinine 1.2 H Creat Clearance w eGFR 47.18 Random Glucose 88 Lactic Acid Calcium 8.1 L Total Bilirubin 0.9 AST 166 H ALT 36 Alkaline Phosphatase 785 H Troponin I < 0.02 Total Protein 5.9 L Albumin 2.0 L Urine Color Yellow Urine Appearance Turbid Urine pH 5.0 Ur Specific Aiken 1.012 Urine Protein 2+ H Urine Glucose (UA) Negative Urine Ketones Negative Urine Blood 1+ H Urine Nitrite Negative Urine Bilirubin Negative Urine Urobilinogen 4.0 e.u/dl H Ur Leukocyte Esterase 2+ H Urine WBC (Auto) 3084 Urine RBC (Auto) 13 Ur Epithelial Cells Few Urine Bacteria Many Urine Mucus Rare 05/07/18 05/07/18 05/07/18 11:53 13:08 13:08 WBC RBC Hgb Hct MCV MCH MCHC RDW Plt Count MPV Absolute Neuts (auto) Neutrophils % Lymphocytes % Monocytes % Eosinophils % Basophils % Nucleated RBC % Platelet Estimate Platelet Comment PT with INR 10.10 INR 0.89 PTT (Actin FS) 26.4 VBG pH POC VBG pCO2 POC VBG pO2 Mixed VBG HCO3 Sodium Potassium Chloride Carbon Dioxide Anion Gap BUN Creatinine Creat Clearance w eGFR Random Glucose Lactic Acid 2.9 H* 1.8 Calcium Total Bilirubin AST ALT Alkaline Phosphatase Troponin I Total Protein Albumin Urine Color Urine Appearance Urine pH Ur Specific Aiken Urine Protein Urine Glucose (UA) Urine Ketones Urine Blood Urine Nitrite Urine Bilirubin Urine Urobilinogen Ur Leukocyte Esterase Urine WBC (Auto) Urine RBC (Auto) Ur Epithelial Cells Urine Bacteria Urine Mucus *DC/Admit/Observation/Transfer Diagnosis at time of Disposition: Cellulitis Qualifiers: Site of cellulitis: unspecified site Qualified Code(s): L03.90 - Cellulitis, unspecified UTI (urinary tract infection) Qualifiers: Urinary tract infection type: site unspecified Hematuria presence: without hematuria Qualified Code(s): N39.0 - Urinary tract infection, site not specified - Discharge Dispostion Decision to Admit order: Yes - Referrals Referrals: Denzel Seymour MD [Primary Care Provider] - - Patient Instructions - Post Discharge Activity
[2018-05-07] MEDS ORDERED: SODIUM CHLORIDE 1,000 ML IV STA (10:19)
--- NOTE | 2018-05-07 10:21 | PDOC ---
Attending Attestation - HPI HPI: 05/07/18 11:27 The patient is a 52 year old female, with a significant PMH of anemia, left breast cancer, IDDM, kidney stones, left stent, borderline HTN, cirrhosis, UTI s and thyroid disease who presents to the emergency department with weakness. Patient reports her legs feel heavy, has been retaining water and notes infection to the anterior chest wall which began approximately 3 and half weeks ago. She reports she noticed a scab on her breast 3 and half weeks ago but progressed recently to an infection and is accompany with itch, no pain. She also states she has been having intermittent mucus like diarrhea for the past 2 weeks accompany with vomiting and has been coughing up white/clear phlegm. The patient reports her doctor prescribed her Lasix for her swollen legs but resolved on its own after coming back from [place]. The patient denies chest pain, shortness of breath, headache and dizziness. Denies fever, chills, and constipation.Denies dysuria and hematuria. Allergies: Sulfa (Hives), terbinafine HCL (Rash) Past surgical history: Appendectomy Social history: Denies tobacco, alcohol and any use of recreational drugs. PCP: Denzel Seymour Documentation prepared by Mayra Shelley, acting as medical orderly for Miley Johnson MD. - Physicial Exam PE: 05/07/18 11:29 GENERAL: The patient is in no acute distress. HEAD: Normal with no signs of trauma. EYES: PERRLA, EOMI, sclera anicteric, conjunctiva clear. ENT: Ears normal, nares patent, oropharynx clear without exudates. Moist mucous membranes. NECK: Normal range of motion, supple without lymphadenopathy, JVD, or masses. LUNGS: Breath sounds equal, clear to auscultation bilaterally. No wheezes, and no crackles. HEART:Regular rate and rhythm, normal S1 and S2 without murmur, rub or gallop. ABDOMEN: Soft, nontender, normoactive bowel sounds. No guarding, no rebound. No masses palpable. EXTREMITIES:3+ pitting edema to the knees bilaterally. Normal range of motion, no edema. No clubbing or cyanosis. No tenderness. NEUROLOGICAL: Cranial nerves II through XII grossly intact. Normal speech. No focal neurological deficits. MUSCULOSKELETAL: Back non-tender to palpation, no CVA tenderness SKIN: + Bilateral mastectomy scars, +Cellulitis scar/eschar to the breast. Warm , Dry, normal turgor, no rashes or lesions noted. Documentation prepared by Mayra Shelley, acting as medical orderly for Miley Johnson MD. - Medical Decision Making 05/07/18 14:[address] Shelley at 2:43 and discussed case with Dr. Barragan. <Mayra Shelley - Last Filed: 05/07/18 14:58> - Resident Resident Name: Carlos Pereyra - ED Attending Attestation I have performed the following: I have examined & evaluated the patient, The case was reviewed & discussed with the resident, I agree w/resident's findings & plan, Exceptions are as noted - Medical Decision Making 05/07/18 12:30 Laboratory Tests 12/03/17 05/07/18 05/07/18 05:35 10:20 10:20 WBC 3.3 L 4.8 Hgb 8.5 L 8.6 L Hct 26.4 L 25.4 L Plt Count 136 VBG pH 7.42 POC VBG pCO2 41.4 POC VBG pO2 20.4 L Mixed VBG HCO3 26.4 H Urine Blood Urine Nitrite Ur Leukocyte Esterase Urine WBC (Auto) Urine RBC (Auto) Ur Epithelial Cells Urine Bacteria Urine Mucus 05/07/18 10:44 WBC Hgb Hct Plt Count VBG pH POC VBG pCO2 POC VBG pO2 Mixed VBG HCO3 Urine Blood 1+ H Urine Nitrite Negative Ur Leukocyte Esterase 2+ H Urine WBC (Auto) 3084 Urine RBC (Auto) 13 Ur Epithelial Cells Few Urine Bacteria Many Urine Mucus Rare UTI Anemic with stable Hgb will treat for cellulitis AND UTI Clinical Impression: cellulitis, initial presentation UTI, initial presentation <Miley Johnson - Last Filed: 05/08/18 10:12>
[2018-05-07 10:33] VITALS: BMI 31.1
[2018-05-07 10:54] LABS: URINE APPEARANCE TURBID; URINE BILIRUBIN NEGATIVE (<2.0 mg/dL); URINE COLOR YELLOW; URINE GLUCOSE (UA) NEGATIVE (NEGATIVE); URINE KETONE NEGATIVE (NEGATIVE); URINE NITRITE NEGATIVE (NEGATIVE); URINE UROBILINOGEN 4.0 E.U/dl mg/dL (0.2-1.0)
[2018-05-07 11:01] LABS: URINE LEUK ESTERASE 2+ (NEGATIVE); URINE PROTEIN 2+ (NEGATIVE)
[2018-05-07 11:04] LABS: EPI CELLS FEW /HPF (FEW); URINE BACTERIA MANY /hpf (NONE SEEN); URINE MUCUS RARE
[2018-05-07 12:14] LABS: BASO % 0.4 % (0-2.0); EOS % 1.8 % (0-4.5); HEMATOCRIT 25.4 % (32.4-45.2); HEMOGLOBIN 8.6 GM/dL (10.7-15.3); LYMPH % 16.4 % (8-40); MCH 33.3 pg (25.7-33.7); MEAN CELL VOLUME 97.9 fl (80-96); MONO % 12.6 % (3.8-10.2); NEUT % 68.8 % (42.8-82.8); PLATELET COUNT 351 K/MM3 (134-434); RDW 14.6 % (11.6-15.6); WHITE BLOOD COUNT 4.8 K/mm3 (4.0-10.0)
[2018-05-07 12:18] LABS: VENOUS PC02 41.4 mmHg (38-52); VENOUS PH 7.42 (7.32-7.42); VENOUS PO2 20.4 mmHg (28-48)
[2018-05-07 12:39] LABS: ANION GAP 10 (8-16); BILIRUBIN,TOTAL 0.9 mg/dL (0.2-1.0); BLOOD UREA NITROGEN 13 mg/dL (7-18); CHLORIDE 100 mmol/L (98-107); CO2 26 mmol/L (21-32); CREATININE 1.2 mg/dL (0.55-1.02); GLUCOSE,RANDOM 88 mg/dL (74-106); POTASSIUM 4.9 mmol/L (3.5-5.1); SGOT/AST 166 U/L (15-37); SGPT/ALT 36 U/L (12-78); SODIUM 136 mmol/L (136-145); TOT PROT 5.9 g/dl (6.4-8.2)
[2018-05-07 12:40] LABS: ALK PHOS 785 U/L (45-117)
[2018-05-07 12:48] LABS: CALCIUM 8.1 mg/dL (8.5-10.1)
[2018-05-07 12:52] LABS: PLATELET ESTIMATE ADEQUATE
[2018-05-07] MEDS ORDERED: CEFTRIAXONE 1,000 MG in DEXTROSE 5%-WATER - 50 ML IVPB ONE (13:33)
[2018-05-07 13:36] LABS: INR 0.89 (0.82-1.09); PROTHROMBIN TIME (PATIENT) 10.1 SEC (9.7-13.0)
[2018-05-07 13:39] LABS: ACTIVATED PTT 26.4 SECONDS (25.2-36.5)
[2018-05-07] MEDS ORDERED: CEFTRIAXONE 1 GM/50 ML BAG ONE (13:53)
--- NOTE | 2018-05-07 14:43 | EKG ---
Test Reason : Blood Pressure : / mmHG Vent. Rate : 103 BPM Atrial Rate : 103 BPM P-R Int : 128 ms QRS Dur : 074 ms QT Int : 364 ms P-R-T Axes : 033 -06 073 degrees QTc Int : 476 ms SINUS TACHYCARDIA LOW VOLTAGE QRS INFERIOR INFARCT (CITED ON OR BEFORE 11-JUN-2014) CANNOT RULE OUT ANTERIOR INFARCT (CITED ON OR BEFORE 11-JUN-2014) ABNORMAL ECG WHEN COMPARED WITH ECG OF 01-DEC-2017 09:25, INVERTED T WAVES HAVE REPLACED NONSPECIFIC T WAVE ABNORMALITY IN ANTERIOR LEADS Confirmed by CLAIRE MARTINES MD ([id number]) on 05/07/2018 2:43:02 PM Referred By: Confirmed By:CLAIRE MARTINES MD
[2018-05-07] MEDS ORDERED: VANCOMYCIN 1,000 MG in DEXTROSE 5%-WATER - 250 ML IVPB ONE (16:00)
[2018-05-07] MEDS: INSULIN SLIDING SCALE (NOVOLOG) 1 VIAL SQ SCH (16:35)
[2018-05-07] MEDS ORDERED: HEMOQUE TEST 1 EACH EACH ONE (18:13)
[2018-05-07] MEDS ORDERED: INSULIN REGULAR HUMAN 100 UNITS/ML *VIAL ONE ×2 (18:30→18:31)
[2018-05-07] MEDS ORDERED: INSULIN (LEVEMIR) 100 UNITS/ML UNITS SQ SCH (22:00)
[2018-05-08] MEDS ORDERED: DEXTROSE 50%-WATER 25 GM/50 ML DISP.SYRIN IVPUSH ONE (02:55)
[2018-05-08] MEDS ORDERED: DEXTROSE 50%-WATER 25 GM/50 ML DISP.SYRIN ONE (02:56)
--- NOTE | 2018-05-08 02:59 | HOSP ---
Subjective - Review of Symptoms Events since last encounter: Called because pt's bgm was 24. Pt was alert, oriented x3 in nad. Reportedly she got a dose of insulin which was larger than her normal dose. Pt may be hypersensitive to ins. pt got 2 glasses of orange juice. Gave d50. Hold Ins and discuss with PCP in am. Physical Examination Vital Signs: Vital Signs Temperature 98.7 F 05/07/18 22:03 Pulse Rate 92 H 05/07/18 22:03 Respiratory Rate 20 05/07/18 22:03 Blood Pressure 139/71 05/07/18 22:03 O2 Sat by Pulse Oximetry (%) 98 05/07/18 23:14 Labs: CBC, BMP 05/07/18 10:20 05/07/18 10:20 Visit type - Emergency Visit Emergency Visit: No - New Patient This patient is new to me today: Yes Date on this admission: 05/08/18 - Critical Care Critical Care patient: No
[2018-05-08] MEDS: INSULIN (LEVEMIR) 100 UNITS/ML UNITS SQ SCH ×2 (06:24→22:08)
[2018-05-08] MEDS: LEVOTHYROXINE NA 25 MCG TABLET (FP) PO SCH (06:24)
[2018-05-08] MEDS: INSULIN SLIDING SCALE (NOVOLOG) 1 VIAL SQ SCH ×3 (06:24→16:38)
[2018-05-08 08:03] LABS: BASO % 0.8 % (0-2.0); EOS % 5.1 % (0-4.5); HEMATOCRIT 22.6 % (32.4-45.2); HEMOGLOBIN 7.6 GM/dL (10.7-15.3); LYMPH % 27.2 % (8-40); MCH 33.6 pg (25.7-33.7); MCHC 33.6 g/dl (32.0-36.0); MEAN CELL VOLUME 100.1 fl (80-96); MEAN PLT VOLUME 7.1 fl (7.5-11.1); MONO % 12.9 % (3.8-10.2); PLATELET COUNT 298 K/MM3 (134-434); RBC 2.26 M/mm3 (3.60-5.2); RDW 14.4 % (11.6-15.6); WHITE BLOOD COUNT 2.8 K/mm3 (4.0-10.0)
[2018-05-08 08:28] LABS: CHLORIDE 102 mmol/L (98-107); POTASSIUM 4.8 mmol/L (3.5-5.1); SODIUM 138 mmol/L (136-145)
[2018-05-08 08:40] LABS: ALBUMIN 1.7 g/dl (3.4-5.0); ALK PHOS 580 U/L (45-117); ANION GAP 15 (8-16); BILIRUBIN,TOTAL 0.7 mg/dL (0.2-1.0); BLOOD UREA NITROGEN 10 mg/dL (7-18); CALCIUM 7.3 mg/dL (8.5-10.1); CO2 21 mmol/L (21-32); CREATININE 1.2 mg/dL (0.55-1.02); SGOT/AST 124 U/L (15-37); SGPT/ALT 29 U/L (12-78); TOT PROT 4.8 g/dl (6.4-8.2)
[2018-05-08 08:42] LABS: GLUCOSE,RANDOM 87 mg/dL (74-106)
--- NOTE | 2018-05-08 08:48 | PN ---
Progress Note (short form) - Note Progress Note: ID Consult dictated Assessment UTI Severe anemia Psoriasis chronic couph ? etiology CARTER Plan Continue Ceftriaxone with switch to po Get Dr Benson to see her ? transfusion CT chest for evaluation of chronic couph Noa GAYTAN Problem List - Problems (1) Urinary tract infection Code(s): N39.0 - URINARY TRACT INFECTION, SITE NOT SPECIFIED Qualifiers: Urinary tract infection type: site unspecified Hematuria presence: without hematuria Qualified Code(s): N39.0 - Urinary tract infection, site not specified (2) Anemia Code(s): D64.9 - ANEMIA, UNSPECIFIED (3) Fatty liver, alcoholic Code(s): K70.0 - ALCOHOLIC FATTY LIVER
[2018-05-08] MEDS ORDERED: cefTRIAXone SODIUM 1 GM VIAL ONE (09:24)
[2018-05-08] MEDS ORDERED: DEXTROSE 5%-WATER - 50 ML IVPB ONE (09:24)
--- NOTE | 2018-05-08 09:27 | CONS ---
DATE OF CONSULTATION: DATE OF DICTATION: 05/07/2018 This is a 52-year-old insulin-dependent diabetic with multiple comorbidities who presented to the emergency room for evaluation of generalized weakness. She has a history of breast cancer and in 2009 underwent bilateral mastectomies, at which time she also received radiation therapy and chemotherapy. She has been followed by Dr. Benson and, according to the patient, has been in remission since that time. Additional comorbidities include diabetic nephropathy, chronic kidney disease, severe psoriasis, scleroderma. The latter, according to the patient, has been inactive. Here she was noted to have urinary complaints and a urinalysis consistent with an acute UTI. She is on ceftriaxone and has been afebrile since her admission. She is also noted to be severely anemic. She has not been seen by Dr. Benson thus far in the hospital. PAST MEDICAL HISTORY: As noted above. CURRENT MEDICATIONS: Levothyroxine, metoprolol, insulin, multivitamins, omeprazole, ramipril. ALLERGIES: SULFA and TERBINAFINE. SOCIAL HISTORY: Nonsmoker. No history of EtOH abuse. No travel. No pets. No unusual hobbies. FAMILY HISTORY: Noncontributory. REVIEW OF SYSTEMS: Respiratory: Chronic cough. No hemoptysis, sputum production. Cardiac: No chest pain, palpitations, history of murmur. Gastrointestinal: No nausea, vomiting, abdominal pain. Genitourinary: Positive dysuria. No gross hematuria. PHYSICAL EXAMINATION: General: Physical exam revealed a well-nourished appearing woman, no acute distress. Vital Signs: Temperature 98.4, pulse 105, blood pressure 120/66, respirations 20. Neck: Supple. Lungs: Clear to auscultation. Heart: S1, S2. Regular rhythm. No audible murmur. Abdomen: Soft, nontender, without hepatosplenomegaly. Chest: Revealed symmetrical ulcerations of the prior mastectomy sites with surrounding diffuse rash consistent with her history of psoriasis. Skin: Diffuse psoriatic lesions throughout the body. LABORATORY: White count 2.8, hemoglobin 7.6, hematocrit 22.6, platelets 298, 54% polys, 27 lymphs, 13 monocytes, 5 eosinophils. ESR is pending. BUN 13, creatinine 1.2. Lactic acid 2.9. AST 166, ALT 785. Bilirubin 0.9. CRP pending. Urinalysis with 3000 white cells, many bacteria. ASSESSMENT: A 52-year-old female admitted with generalized weakness, diabetes, multiple comorbidities, found to be severely anemic. From the infectious disease standpoint, she is not febrile nor meets criteria for sepsis and is otherwise relatively asymptomatic from the standpoint of her urinary tract infection. She is on ceftriaxone which can be switched to Ceftin 500 mg p.o. b.i.d. pending urine culture. Will ask Dr. Benson, hematology, to follow up on her regarding her anemia and need for possible blood transfusion. Lastly, regarding her chronic cough, she states she has not had a CT of the chest done to further evaluate this. Given her history of scleroderma as well as her history of radiation therapy in the past, will get a CT of the chest noncontrast while she is here. BELEN MENG M.D. [id number]
[2018-05-08] MEDS: RAMIPRIL 2.5 MG CAPSULE (FP) PO SCH (09:30)
[2018-05-08] MEDS: CEFTRIAXONE 1 GM in DEXTROSE 5%-WATER - 50 ML IVPB SCH (09:30)
[2018-05-08] MEDS: PANTOPRAZOLE 20 MG TABLET (FP) PO SCH (09:30)
[2018-05-08] MEDS: metoPROLOL SUCCINATE 25 MG TAB.SR.24H (FP) PO SCH (09:30)
[2018-05-08 10:26] LABS: ERYTHROCYTE SEDIMENTATION RATE 46 mm/hr (0-30)
--- NOTE | 2018-05-08 11:40 | HP ---
Admitting History and Physical - Primary Care Physician PCP: Denzel Seymour - Admission Chief Complaint: fels tired// weakness History of Present Illness: Er records reviewed Pt seen/ examined Ms. Dixon is a 52 yo female w/ pmh of CKD stage III, IDDM, diabetic nephropathy, nephrolithiasis, HTN, HLD, Breast CA s/p nanda mastectomy, scleroderma, and psoriasis who presents for evaluation of 4-5 day history of generalized weakness. She further describes chest itchiness she attributes to her psoriasis and relates that she has been scratching at it. The patient denies chest pain, shortness of breath, headache and dizziness. Denies fever, chills, nausea, vomit, diarrhea and constipation. Denies dysuria, frequency, urgency and hematuria. pt seen/ examined currently treated with abx for uti given fluids also w/c + for mrsa -- lab just called cough +- she describes dry/ chronic. 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: Peripheral Neuropathy (walks with a walker) Cardiovascular: Yes: HTN Gastrointestinal: Yes: Constipation Renal/: Yes: Renal Calculi, UTI ...LMP: 04/17/10 ...: No Heme/Onc: Yes: Anemia, Cancer (breast ca s/p bilateral mastectomy 2009, s/p chemo ended 2010) Rheumatology: Yes: Other (Scleroderma,psoriasis) Endocrine: Yes: Diabetes Mellitus Dermatology: Yes: Psoriasis, Other (scleroderma) - Past Surgical History Past Surgical History: Yes: Appendectomy, , Mastectomy - Smoking History Smoking history: Never smoked Have you smoked in the past 12 months: No Aproximately how many cigarettes per day: 0 - Alcohol/Substance Use Hx Alcohol Use: No - Social History ADL: Family Assistance History of Recent Travel: No Home Medications - Allergies Allergies/Adverse Reactions: Allergies Allergy/AdvReac Type Severity Reaction Status Date / Time Sulfa (Sulfonamide Allergy Intermediate Hives Verified 11/30/17 13:10 Antibiotics) [Sulfa(Sulfonamide Antibiotics)] terbinafine HCl Allergy Intermediate Rash Verified 11/30/17 13:10 [From Lamisil] - Home Medications Home Medications: Ambulatory Orders Levothyroxine [Synthroid -] 25 mcg PO DAILY@0700 #30 tablet 06/20/14 Metoprolol Succinate [Toprol XL -] 12.5 mg PO DAILY 07/19/14 Insulin (Novolog) [Novolog Flexpen -] 5 units SQ HS 02/14/15 Mauri Cit/Mag/D3/Zn/Community Center Coordinator/Atif/Bor [Citracal-Vit D + Magnesium Tab] 1 each PO DAILY 11/30/17 Multivitamin [One Daily] 1 each PO DAILY 11/30/17 Omeprazole 20 mg PO DAILY 11/30/17 Insulin (Levemir) [Levemir Vial] 4 units SQ HS ml 12/02/17 Insulin (Levemir) [Levemir Vial] 6 units SQ DAILY@0700 ml 12/02/17 Ramipril 2.5 mg PO DAILY 05/07/18 Family Disease History - Family Disease History Family Disease History: CA: Grandparent (paternal grandmother --colon ca// maternal grandmother --breast cancer), Father (colon polyps- precancerous; had kidney stones), Mother (; also was on dialysis; had no diabetes), Other: Sister (kidney stones younger sister) Review of Systems - Review of Systems Constitutional: reports: Lethargy, Weakness Eyes: reports: No Symptoms Neck: reports: No Symptoms Cardiovascular: reports: No Symptoms Respiratory: reports: Cough, SOB Gastrointestinal: reports: No Symptoms Genitourinary: reports: Frequency Neurological: reports: No Symptoms Psychiatric: reports: No Symptoms Physical Examination Vital Signs: Vital Signs Temperature 98.5 F 05/08/18 09:00 Pulse Rate 113 H 05/08/18 09:00 Respiratory Rate 18 05/08/18 09:00 Blood Pressure 146/84 05/08/18 09:00 O2 Sat by Pulse Oximetry (%) 97 05/08/18 09:00 Constitutional: Yes: No Distress, Obese Eyes: Yes: Conjunctiva Clear Neck: Yes: Supple Cardiovascular: Yes: Regular Rate and Rhythm Respiratory: Yes: Diminished Gastrointestinal: Yes: Soft Edema: No Integumentary: Yes: Rash, Skin Tear, Other (right chest - - reddness) Neurological: Yes: Alert Psychiatric: Yes: Alert Labs: CBC, BMP 05/08/18 07:00 05/08/18 07:00 Imaging - Results Chest X-ray: Report Reviewed EKG: Report Reviewed Problem List - Problems (1) Anemia Code(s): D64.9 - ANEMIA, UNSPECIFIED (2) Weakness generalized Code(s): R53.1 - WEAKNESS (3) Cellulitis Code(s): L03.90 - CELLULITIS, UNSPECIFIED Qualifiers: Site of cellulitis: unspecified site Qualified Code(s): L03.90 - Cellulitis , unspecified (4) Urinary tract infection Code(s): N39.0 - URINARY TRACT INFECTION, SITE NOT SPECIFIED Qualifiers: Urinary tract infection type: site unspecified Hematuria presence: without hematuria Qualified Code(s): N39.0 - Urinary tract infection, site not specified (5) Diabetes type 1, uncontrolled Code(s): E10.65 - TYPE 1 DIABETES MELLITUS WITH HYPERGLYCEMIA (6) Hypoglycemia due to insulin Code(s): E16.0 - DRUG-INDUCED HYPOGLYCEMIA WITHOUT COMA; T38.3X5A - ADVERSE EFFECT OF INSULIN AND ORAL HYPOGLYCEMIC DRUGS, INIT (7) Cough due to JUN inhibitor Code(s): R05 - COUGH; T46.4X5A - ADVERSE EFFECT OF [id number] INHIBITORS, INIT Assessment/Plan Continue abx mrsa precautions f/u labs f/u cultures ct chest pending dvt priophylaxis chronic anemia-- no evidence of bleeding check stool for occult blood chronic cough likely due to jun -- d/c for now will follow discussed with nursing staff. time spend 35 min
[2018-05-08] MEDS: guaiFENesin/D-M SUGAR-FREE/ACLHOL-FREE 118 ML BOTTLE PO PRN (22:08)
--- NOTE | 2018-05-08 23:42 | CONSULT ---
Consult Consult Specialty:: hematology-oncology Referred by:: - History of Present Illness History of Present Illness: Ms. Dixon is a 52 yo female w/ pmh of CKD stage III, IDDM, diabetic nephropathy, nephrolithiasis, HTN, HLD, Breast CA s/p nanda mastectomy, scleroderma, and psoriasis who presents for evaluation of 4-5 day history of generalized weakness. She further describes chest itchiness she attributes to her psoriasis and relates that she has been scratching at it. 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 breast cancer--2009. 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 s/p bilateral mastectomies/axillary lymphadenectomy. s/p RT to Lt. chestwall. s/p adjuvant chemotherapy - Past Surgical History Past Surgical History: Yes: Appendectomy, , Mastectomy - Alcohol/Substance Use Hx Alcohol Use: No - Smoking History Smoking history: Never smoked Have you smoked in the past 12 months: No Aproximately how many cigarettes per day: 0 - Social History ADL: Family Assistance History of Recent Travel: No Home Medications - Allergies Allergies/Adverse Reactions: Allergies Allergy/AdvReac Type Severity Reaction Status Date / Time Sulfa (Sulfonamide Allergy Intermediate Hives Verified 11/30/17 13:10 Antibiotics) [Sulfa(Sulfonamide Antibiotics)] terbinafine HCl Allergy Intermediate Rash Verified 11/30/17 13:10 [From Lamisil] - Home Medications Home Medications: Ambulatory Orders Levothyroxine [Synthroid -] 25 mcg PO DAILY@0700 #30 tablet 06/20/14 Metoprolol Succinate [Toprol XL -] 12.5 mg PO DAILY 07/19/14 Insulin (Novolog) [Novolog Flexpen -] 5 units SQ HS 02/14/15 Mauri Cit/Mag/D3/Zn/District Plant Engineer/Atif/Bor [Citracal-Vit D + Magnesium Tab] 1 each PO DAILY 11/30/17 Multivitamin [One Daily] 1 each PO DAILY 11/30/17 Omeprazole 20 mg PO DAILY 11/30/17 Insulin (Levemir) [Levemir Vial] 4 units SQ HS ml 12/02/17 Insulin (Levemir) [Levemir Vial] 6 units SQ DAILY@0700 ml 12/02/17 Ramipril 2.5 mg PO DAILY 05/07/18 Family Disease History - Family Disease History Family Disease History: CA: Grandparent (paternal grandmother --colon ca// maternal grandmother --breast cancer), Father (colon polyps- precancerous; had kidney stones), Mother (; also was on dialysis; had no diabetes), Other: Sister (kidney stones younger sister) Review of Systems - Review of Systems Constitutional: reports: Night Sweats, Weakness Physical Exam Vital Signs: Vital Signs Temperature 99.0 F 05/08/18 21:16 Pulse Rate 91 H 05/08/18 21:16 Respiratory Rate 18 05/08/18 21:16 Blood Pressure 133/69 05/08/18 21:16 O2 Sat by Pulse Oximetry (%) 97 05/08/18 09:00 Labs: CBC, BMP 05/08/18 07:00 05/08/18 07:00 Assessment/Plan 49-year-old female with past medical history of diabetes, scleroderma, psoriasis , sepsis, kidney stones presents with weakness ,chest wall wounds, pancytopenia Pancytopenia : macrocytic anemia/mild leukopenia /normal platelets--- definite component of liver disease ( alcohol + fatty) + component of anemia oc chronic kidney disease and chronic disease will check B12/folate/TSH/fT4 Suspect worsening due to ongoing infection CT chest for chronic coulgh --b/l effusions Lt.> rt. ? consolidation
[2018-05-09] MEDS: LEVOTHYROXINE NA 25 MCG TABLET (FP) PO SCH (06:16)
[2018-05-09] MEDS: INSULIN (LEVEMIR) 100 UNITS/ML UNITS SQ SCH ×2 (06:17→21:56)
[2018-05-09] MEDS: INSULIN SLIDING SCALE (NOVOLOG) 1 VIAL SQ SCH ×3 (06:17→17:33)
[2018-05-09] MEDS ORDERED: DEXTROSE 5%-WATER - 50 ML IVPB ONE (09:00)
[2018-05-09] MEDS ORDERED: cefTRIAXone SODIUM 1 GM VIAL ONE (09:00)
[2018-05-09] MEDS ORDERED: PT OWN MED DRAWER 7, Y5N ONE (09:01)
[2018-05-09] MEDS: CEFTRIAXONE 1 GM in DEXTROSE 5%-WATER - 50 ML IVPB SCH (09:31)
[2018-05-09] MEDS: PANTOPRAZOLE 20 MG TABLET (FP) PO SCH (09:32)
[2018-05-09] MEDS: metoPROLOL SUCCINATE 25 MG TAB.SR.24H (FP) PO SCH (09:32)
[2018-05-09] MEDS: RAMIPRIL 2.5 MG CAPSULE (FP) PO SCH (09:32)
[2018-05-09] MEDS: ENOXAPARIN NA (PORCINE) 40 MG/0.4 ML DISP.SYRIN SQ SCH (09:32)
--- NOTE | 2018-05-09 09:35 | PN ---
Progress Note, Physician Chief Complaint: ID Definate change of event s here today as she is now SOB and febrile 102 Denies chest pains Ceftriaxone - Current Medication List Current Medications: Active Medications Enoxaparin Sodium (Lovenox -) 40 mg SQ DAILY [facility] Guaifenesin (Diabetic Tussin Dm -) 5 ml PO Q4H PRN PRN Reason: COUGH Last Admin: 05/08/18 22:08 Dose: 5 ml Ceftriaxone Sodium 1 gm/ (Dextrose) 50 mls @ 100 mls/hr IVPB DAILY@0800 [facility] Last Admin: 05/08/18 09:30 Dose: 100 mls/hr Insulin Aspart (Novolog Vial Sliding Scale -) 1 vial SQ TIDAC [facility]; Protocol Last Admin: 05/09/18 06:17 Dose: Not Given Insulin Detemir (Levemir Vial) 6 units SQ DAILY@0700 [facility] Last Admin: 05/09/18 06:17 Dose: Not Given Insulin Detemir (Levemir Vial) 3 units SQ HS [facility] Last Admin: 05/08/18 22:08 Dose: 3 units Levothyroxine Sodium (Synthroid -) 25 mcg PO DAILY@0700 [facility] Last Admin: 05/09/18 06:16 Dose: 25 mcg Metoprolol Succinate (Toprol Xl -) 12.5 mg PO DAILY [facility] Last Admin: 05/08/18 09:30 Dose: 12.5 mg Pantoprazole Sodium (Protonix -) 20 mg PO DAILY [facility] Last Admin: 05/08/18 09:30 Dose: 20 mg Ramipril (Altace -) 2.5 mg PO DAILY [facility] Last Admin: 05/08/18 09:30 Dose: 2.5 mg - Objective Vital Signs: Vital Signs Temperature 99.5 F 05/09/18 06:00 Pulse Rate 91 H 05/08/18 21:16 Respiratory Rate 18 05/09/18 06:00 Blood Pressure 146/94 05/09/18 06:00 O2 Sat by Pulse Oximetry (%) 97 05/08/18 09:00 Constitutional: Yes: Moderate Distress Neck: Yes: WNL, Supple Cardiovascular: Yes: Regular Rate and Rhythm, Tachycardia, S1, S2 Respiratory: Yes: WNL, Regular, CTA Bilaterally, Diminished Gastrointestinal: Yes: WNL, Normal Bowel Sounds, Soft Extremities: No: Cyanosis Integumentary: Yes: Other (Chest wall some erythema around the open breast ulcerations drainage noted) Labs: CBC, BMP 05/08/18 07:00 05/08/18 07:00 INR, PTT INR 0.89 (0.82-1.09) 05/07/18 13:08 Problem List - Problems (1) Urinary tract infection Code(s): N39.0 - URINARY TRACT INFECTION, SITE NOT SPECIFIED Qualifiers: Urinary tract infection type: site unspecified Hematuria presence: without hematuria Qualified Code(s): N39.0 - Urinary tract infection, site not specified (2) Anemia Code(s): D64.9 - ANEMIA, UNSPECIFIED (3) Fatty liver, alcoholic Code(s): K70.0 - ALCOHOLIC FATTY LIVER Assessment/Plan Microbiology 05/07/18 10:30 Breast - Right Gram Stain - Final 05/07/18 10:30 Breast - Left Gram Stain - Final 05/07/18 10:30 Breast - Right Wound Culture - Preliminary Presumptive Mrsa (Pbp2a Pos) 05/07/18 10:30 Breast - Left Wound Culture - Preliminary Presumptive Mrsa (Pbp2a Pos) 05/07/18 10:25 Urine - Urine Clean Catch Urine Culture - Preliminary Lactose Fermenting Neg Bacilli Group D Strep Or Entero Coccus Laboratory Tests 05/07/18 05/08/18 05/08/18 10:44 07:00 07:00 WBC 2.8 L Hgb 7.6 L Hct 22.6 L Plt Count 298 ESR 46 H BUN 10 Creatinine 1.2 H Creat Clearance w eGFR 47.18 Alkaline Phosphatase 580 H D Urine RBC (Auto) 13 Assessment Sepsis ? urinary tract and or component of SSTI chest wall left breast ? Urine culture noted Plan Repeat blood custures 2 Broaden coverage Vancomcyin Zosyn Chest xray CBC ? leukopenia anemia Pulmonary consult ROMIE Latham MD
[2018-05-09] MEDS ORDERED: ACETAMINOPHEN 500 MG TABLET (FP) PO PRN (09:40)
[2018-05-09] MEDS ORDERED: DEXTROSE 5%-WATER 100 ML IVPB ONE ×2 (10:14→17:39)
[2018-05-09] MEDS ORDERED: PIPERACILLIN/TAZOBACTAM 4.5 GM VIAL IVPB ONE ×2 (10:14→17:39)
[2018-05-09] MEDS ORDERED: ACETAMINOPHEN 325 MG TABLET (FP) ONE (10:15)
[2018-05-09] MEDS: ACETAMINOPHEN 325 MG TABLET (FP) PO PRN (10:28)
[2018-05-09] MEDS: PIPERACILLIN/TAZOB 4.5 GM 4.5 GM in DEXTROSE 5%-WATER 100 ML IVPB SCH ×2 (10:56→17:51)
[2018-05-09 10:58] LABS: ARTERIAL BLD GAS O2 SATURATION 98.3 % (90-98.9); ARTERIAL BLOOD GAS BASE EXCESS 2.6 meq/l (-2-2); ARTERIAL BLOOD GAS PCO2 32.1 mmHg (35-45); ARTERIAL BLOOD GAS PO2 86.5 mmHg (80-100); ARTERIAL BLOOD GAS pH 7.51 (7.35-7.45)
[2018-05-09 10:59] LABS: ALLENS TEST POSITIVE
[2018-05-09] MEDS: VANCOMYCIN 1,250 MG in DEXTROSE 5%-WATER - 250 ML IVPB SCH (11:50)
[2018-05-09] MEDS: guaiFENesin/D-M SUGAR-FREE/ACLHOL-FREE 118 ML BOTTLE PO PRN ×3 (11:51→21:56)
[2018-05-09 12:32] LABS: BASO % 0.4 % (0-2.0); HEMATOCRIT 21.2 % (32.4-45.2); HEMOGLOBIN 7.1 GM/dL (10.7-15.3); LYMPH % 10.6 % (8-40); MCHC 33.4 g/dl (32.0-36.0); MEAN PLT VOLUME 6.9 fl (7.5-11.1); PLATELET COUNT 258 K/MM3 (134-434); RBC 2.14 M/mm3 (3.60-5.2); RDW 14.1 % (11.6-15.6); WHITE BLOOD COUNT 5.8 K/mm3 (4.0-10.0)
--- NOTE | 2018-05-09 12:35 | PN ---
Progress Note, Physician Chief Complaint: Elevated temp this AM Has cough - mild white sputum no SOB feels weak appetite decreased - Current Medication List Current Medications: Active Medications Acetaminophen (Tylenol -) 650 mg PO Q6HPO PRN PRN Reason: FEVER Last Admin: 05/09/18 10:28 Dose: 650 mg Enoxaparin Sodium (Lovenox -) 40 mg SQ DAILY [facility] Last Admin: 05/09/18 09:32 Dose: 40 mg Guaifenesin (Diabetic Tussin Dm -) 5 ml PO Q4H PRN PRN Reason: COUGH Last Admin: 05/09/18 11:51 Dose: 5 ml Vancomycin HCl 1,250 mg/ (Dextrose) 250 mls @ 250 mls/2 hr IVPB Q24H [facility]; Protocol Last Admin: 05/09/18 11:50 Dose: 250 mls/2 hr Piperacillin Sod/Tazobactam (Sod 4.5 gm/ Dextrose) 100 mls @ 200 mls/hr IVPB Q8H-IV [facility]; Protocol Last Admin: 05/09/18 10:56 Dose: 200 mls/hr Insulin Aspart (Novolog Vial Sliding Scale -) 1 vial SQ TIDAC [facility]; Protocol Last Admin: 05/09/18 11:51 Dose: Not Given Insulin Detemir (Levemir Vial) 6 units SQ DAILY@0700 [facility] Last Admin: 05/09/18 06:17 Dose: Not Given Insulin Detemir (Levemir Vial) 3 units SQ HS [facility] Last Admin: 05/08/18 22:08 Dose: 3 units Levothyroxine Sodium (Synthroid -) 25 mcg PO DAILY@0700 [facility] Last Admin: 05/09/18 06:16 Dose: 25 mcg Metoprolol Succinate (Toprol Xl -) 12.5 mg PO DAILY [facility] Last Admin: 05/09/18 09:32 Dose: 12.5 mg Pantoprazole Sodium (Protonix -) 20 mg PO DAILY [facility] Last Admin: 05/09/18 09:32 Dose: 20 mg Ramipril (Altace -) 2.5 mg PO DAILY [facility] Last Admin: 05/09/18 09:32 Dose: 2.5 mg - Objective Vital Signs: Vital Signs Temperature 100.7 F H 05/09/18 11:20 Pulse Rate 115 H 05/09/18 09:29 Respiratory Rate 21 05/09/18 09:29 Blood Pressure 132/83 05/09/18 09:29 O2 Sat by Pulse Oximetry (%) 97 05/08/18 09:00 Constitutional: Yes: No Distress Cardiovascular: Yes: Regular Rate and Rhythm Respiratory: Yes: Diminished Gastrointestinal: Yes: Normal Bowel Sounds, Soft. No: Distention, Tenderness Musculoskeletal: Yes: Other (left chest wall- open wound - surrounding erythema , no drainage from wound) Edema: No Labs: CBC, BMP 05/09/18 11:38 INR, PTT INR 0.89 (0.82-1.09) 05/07/18 13:08 Problem List - Problems (1) Cellulitis Code(s): L03.90 - CELLULITIS, UNSPECIFIED Qualifiers: Site of cellulitis: unspecified site Qualified Code(s): L03.90 - Cellulitis , unspecified (2) Diabetes Code(s): E11.9 - TYPE 2 DIABETES MELLITUS WITHOUT COMPLICATIONS (3) Pleural effusion Code(s): J90 - PLEURAL EFFUSION, NOT ELSEWHERE CLASSIFIED (4) Pneumonia Code(s): J18.9 - PNEUMONIA, UNSPECIFIED ORGANISM (5) Weakness generalized Code(s): R53.1 - WEAKNESS (6) Diabetes type 1, uncontrolled Code(s): E10.65 - TYPE 1 DIABETES MELLITUS WITH HYPERGLYCEMIA Qualifiers: Chronic kidney disease stage: stage 2 (mild) (7) Urinary tract infection Code(s): N39.0 - URINARY TRACT INFECTION, SITE NOT SPECIFIED Qualifiers: Urinary tract infection type: site unspecified Hematuria presence: without hematuria Qualified Code(s): N39.0 - Urinary tract infection, site not specified Assessment/Plan PLAN CT chest noted iv antibiotics per ID nebs Pulmonary eval ABG ordered diabetic control add supplements, prosource
--- NOTE | 2018-05-09 12:48 | CON.PULM ---
Consult Consult Specialty:: PULM/CCM Referred by:: PMD Reason for Consultation:: SOB / PNA - History of Present Illness Chief Complaint: Generalized weakness History of Present Illness: 52 F, CKD stage III, IDDM, diabetic nephropathy, nephrolithiasis, HTN, HLD, Breast CA s/p nanda mastectomy in 2009, scleroderma, and psoriasis. Admitted via the ER due to 4-5 days of generalized weakness. She reports picking at "scabs" on her left chest and subsequent redness. She has noticed a cough for the past few days. No travel history or sick contacts. No hemoptysis. No pleuritic type discomfort. 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 breast cancer--2009. 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 s/p bilateral mastectomies/axillary lymphadenectomy. s/p RT to Lt. chestwall. s/p adjuvant chemotherapy - Past Surgical History Past Surgical History: Yes: Appendectomy, , Mastectomy - Alcohol/Substance Use Hx Alcohol Use: No - Smoking History Smoking history: Never smoked Have you smoked in the past 12 months: No Aproximately how many cigarettes per day: 0 - Social History ADL: Family Assistance History of Recent Travel: No Home Medications - Allergies Allergies/Adverse Reactions: Allergies Allergy/AdvReac Type Severity Reaction Status Date / Time Sulfa (Sulfonamide Allergy Intermediate Hives Verified 11/30/17 13:10 Antibiotics) [Sulfa(Sulfonamide Antibiotics)] terbinafine HCl Allergy Intermediate Rash Verified 11/30/17 13:10 [From Lamisil] - Home Medications Home Medications: Ambulatory Orders Levothyroxine [Synthroid -] 25 mcg PO DAILY@0700 #30 tablet 06/20/14 Metoprolol Succinate [Toprol XL -] 12.5 mg PO DAILY 07/19/14 Insulin (Novolog) [Novolog Flexpen -] 5 units SQ HS 02/14/15 Mauri Cit/Mag/D3/Zn/Lump Maker/Atif/Bor [Citracal-Vit D + Magnesium Tab] 1 each PO DAILY 11/30/17 Multivitamin [One Daily] 1 each PO DAILY 11/30/17 Omeprazole 20 mg PO DAILY 11/30/17 Insulin (Levemir) [Levemir Vial] 4 units SQ HS ml 12/02/17 Insulin (Levemir) [Levemir Vial] 6 units SQ DAILY@0700 ml 12/02/17 Ramipril 2.5 mg PO DAILY 05/07/18 Family Disease History - Family Disease History Family Disease History: CA: Grandparent (paternal grandmother --colon ca// maternal grandmother --breast cancer), Father (colon polyps- precancerous; had kidney stones), Mother (; also was on dialysis; had no diabetes), Other: Sister (kidney stones younger sister) Review of Systems - Review of Systems Constitutional: reports: Malaise, Weakness. denies: Chills, Fever, Night Sweats Eyes: reports: No Symptoms HENT: reports: No Symptoms Neck: reports: No Symptoms Cardiovascular: reports: Shortness of Breath. denies: Chest Pain, Edema, Palpitations Respiratory: reports: Cough, SOB. denies: Hemoptysis, Orthopnea, Snoring, SOB on Exertion, Wheezing Gastrointestinal: reports: No Symptoms Genitourinary: reports: No Symptoms Breasts: reports: See HPI Musculoskeletal: reports: Muscle Weakness Integumentary: reports: Change in Color, Eczema, Erythema, Lesions Neurological: reports: No Symptoms Endocrine: reports: No Symptoms Hematology/Lymphatic: reports: No Symptoms Psychiatric: reports: No Symptoms Physical Exam Vital Sings: Vital Signs Temperature 100.7 F H 05/09/18 11:20 Pulse Rate 115 H 05/09/18 09:29 Respiratory Rate 21 05/09/18 09:29 Blood Pressure 132/83 05/09/18 09:29 O2 Sat by Pulse Oximetry (%) 97 05/08/18 09:00 Constitutional: Yes: No Distress Eyes: Yes: Conjunctiva Clear, EOM Intact HENT: Yes: Atraumatic, Normocephalic Neck: Yes: Supple, Trachea Midline Cardiovascular: Yes: Regular Rate and Rhythm Respiratory: Yes: Cough, On Nasal O2, Rhonchi. No: Accessory Muscle Use, Rales , Stridor, Tachypnea, Wheezes ...Inspection: Yes: Other (Erythema and scabbing LACW ) ...Clubbing: No Gastrointestinal: Yes: Normal Bowel Sounds, Soft Renal/: Yes: WNL Breast(s): Yes: Skin Changes, Other (Mastectomy ) Musculoskeletal: Yes: WNL Extremities: Yes: WNL Edema: No Peripheral Pulses WNL: Yes Integumentary: Yes: Erythema, Skin Tear Neurological: Yes: Alert, Oriented ...Motor Strength: WNL Psychiatric: Yes: WNL, Alert, Oriented Labs: CBC, BMP 05/09/18 11:38 ABG Results ABG pH 7.51 (7.35-7.45) H 05/09/18 10:45 ABG pCO2 at Pt Temp 32.1 mmHg (35-45) L 05/09/18 10:45 ABG pO2 at Pt Temp 86.5 mmHg (80-100) 05/09/18 10:45 ABG HCO3 25.3 meq/L (22-26) 05/09/18 10:45 ABG O2 Sat (Measured) 98.3 % (90-98.9) 05/09/18 10:45 ABG O2 Content 10.3 % vol (15-22) L 05/09/18 10:45 ABG Base Excess 2.6 meq/l (-2-2) H 05/09/18 10:45 Imaging - Results Chest X-ray: Report Reviewed Cat Scan: Report Reviewed, Image Reviewed Problem List - Problems (1) Diabetes Code(s): E11.9 - TYPE 2 DIABETES MELLITUS WITHOUT COMPLICATIONS (2) Pleural effusion Code(s): J90 - PLEURAL EFFUSION, NOT ELSEWHERE CLASSIFIED (3) Pneumonia Code(s): J18.9 - PNEUMONIA, UNSPECIFIED ORGANISM (4) Cellulitis Code(s): L03.90 - CELLULITIS, UNSPECIFIED Qualifiers: Site of cellulitis: unspecified site Qualified Code(s): L03.90 - Cellulitis , unspecified (5) Urinary tract infection Code(s): N39.0 - URINARY TRACT INFECTION, SITE NOT SPECIFIED Qualifiers: Urinary tract infection type: site unspecified Hematuria presence: without hematuria Qualified Code(s): N39.0 - Urinary tract infection, site not specified (6) Weakness generalized Code(s): R53.1 - WEAKNESS (7) Anemia Code(s): D64.9 - ANEMIA, UNSPECIFIED (8) Fever Code(s): R50.9 - FEVER, UNSPECIFIED (9) Hypertension Code(s): I10 - ESSENTIAL (PRIMARY) HYPERTENSION (10) Hypothyroid Code(s): E03.9 - HYPOTHYROIDISM, UNSPECIFIED (11) Scleroderma Code(s): M34.9 - SYSTEMIC SCLEROSIS, UNSPECIFIED Assessment/Plan Panculture O2 as needed ABX per ID Local wound care No clear clinical symptoms consistent with empyema. However, if fevers persist/ worsen-> may need diagnostic pleural tap VTE prophylaxis Will follow Thank you. Dr Villavicencio
[2018-05-09 13:19] LABS: ALBUMIN 1.6 g/dl (3.4-5.0); ALK PHOS 553 U/L (45-117); ANION GAP 8 (8-16); BILIRUBIN,TOTAL 0.9 mg/dL (0.2-1.0); BLOOD UREA NITROGEN 10 mg/dL (7-18); CALCIUM 7.3 mg/dL (8.5-10.1); CHLORIDE 103 mmol/L (98-107); CO2 27 mmol/L (21-32); CREATININE 1.2 mg/dL (0.55-1.02); GLUCOSE,RANDOM 144 mg/dL (74-106); SGOT/AST 60 U/L (15-37); SGPT/ALT 23 U/L (12-78); SODIUM 138 mmol/L (136-145); TOT PROT 4.7 g/dl (6.4-8.2)
[2018-05-09] MEDS ORDERED: FUROSEMIDE 40 MG/4 ML INJECTABLE VIAL IVPUSH ONE (15:43)
[2018-05-10] MEDS ORDERED: FUROSEMIDE 40 MG/4 ML INJECTABLE VIAL IVPUSH ONE (02:15)
[2018-05-10] MEDS ORDERED: DEXTROSE 5%-WATER 100 ML IVPB ONE ×3 (02:16→16:36)
[2018-05-10] MEDS ORDERED: PIPERACILLIN/TAZOBACTAM 4.5 GM VIAL IVPB ONE ×3 (02:16→16:36)
[2018-05-10] MEDS: PIPERACILLIN/TAZOB 4.5 GM 4.5 GM in DEXTROSE 5%-WATER 100 ML IVPB SCH ×3 (02:24→18:06)
[2018-05-10] MEDS: INSULIN (LEVEMIR) 100 UNITS/ML UNITS SQ SCH ×2 (06:43→22:02)
[2018-05-10] MEDS: INSULIN SLIDING SCALE (NOVOLOG) 1 VIAL SQ SCH ×3 (06:51→16:46)
[2018-05-10] MEDS: AMINO ACIDS/PROTEIN HYDROLYS 30 ML LIQUID.PKT PO SCH ×2 (07:59→16:47)
[2018-05-10] MEDS: LEVOTHYROXINE NA 25 MCG TABLET (FP) PO SCH (07:59)
--- NOTE | 2018-05-10 09:36 | PN ---
Progress Note (short form) - Note Progress Note: ID Clinical improvement today Temp down Vancoycin and Zosyn day 1 Selected Entries 05/10/18 06:00 Temperature 98.0 F Pulse Rate 78 Respiratory 18 Rate Blood Pressure 142/80 Microbiology 05/07/18 10:30 Breast - Right Gram Stain - Final 05/07/18 10:30 Breast - Right Wound Culture - Final S Aureus 05/07/18 10:30 Breast - Left Gram Stain - Final 05/07/18 10:30 Breast - Left Wound Culture - Final S Aureus 05/07/18 10:25 Urine - Urine Clean Catch Urine Culture - Preliminary Klebsiella Pneumoniae Group D Strep Or Entero Coccus Laboratory Tests 05/09/18 05/09/18 11:38 11:38 WBC 5.8 Plt Count 258 BUN 10 Assessment Sepsis UTI Chest wall ulcers ? SSTI MRSA Pleural effusion Plan Continue same antibiotic for today Vanco level tomorrow Transfuse PRBC Noa GAYTAN Problem List - Problems (1) Urinary tract infection Code(s): N39.0 - URINARY TRACT INFECTION, SITE NOT SPECIFIED Qualifiers: Urinary tract infection type: site unspecified Hematuria presence: without hematuria Qualified Code(s): N39.0 - Urinary tract infection, site not specified (2) Anemia Code(s): D64.9 - ANEMIA, UNSPECIFIED (3) Fatty liver, alcoholic Code(s): K70.0 - ALCOHOLIC FATTY LIVER
[2018-05-10] MEDS ORDERED: PT OWN MED DRAWER 7, Y5N ONE (11:12)
[2018-05-10] MEDS: metoPROLOL SUCCINATE 25 MG TAB.SR.24H (FP) PO SCH (11:23)
[2018-05-10] MEDS: RAMIPRIL 2.5 MG CAPSULE (FP) PO SCH (11:24)
[2018-05-10] MEDS: PANTOPRAZOLE 20 MG TABLET (FP) PO SCH (11:24)
[2018-05-10] MEDS: ENOXAPARIN NA (PORCINE) 40 MG/0.4 ML DISP.SYRIN SQ SCH (11:24)
[2018-05-10] MEDS: VANCOMYCIN 1,250 MG in DEXTROSE 5%-WATER - 250 ML IVPB SCH (11:25)
--- NOTE | 2018-05-10 12:10 | PN ---
Progress Note (short form) - Note Progress Note: Clinically appears better. No CP or SOB. Some dry cough. No pleuritic type pain. Intake & Output 05/07/18 05/08/18 05/09/18 05/10/18 23:59 23:59 23:59 23:59 Intake Total 100 750 420 Balance 100 750 420 Weight 154 lb Last Vital Signs Temp Pulse Resp BP Pulse Ox 98.0 F 78 18 142/80 97 05/10/18 06:00 05/10/18 06:00 05/10/18 06:00 05/10/18 06:00 05/09/18 21:00 Active Medications Acetaminophen (Tylenol -) 650 mg PO Q6HPO PRN PRN Reason: FEVER Last Admin: 05/09/18 10:28 Dose: 650 mg Amino Acids (Prosource No Carb Liquid Pkt) 30 ml PO BID@0800,1730 [facility] Last Admin: 05/10/18 07:59 Dose: 30 ml Enoxaparin Sodium (Lovenox -) 40 mg SQ DAILY [facility] Last Admin: 05/10/18 11:24 Dose: 40 mg Guaifenesin (Diabetic Tussin Dm -) 5 ml PO Q4H PRN PRN Reason: COUGH Last Admin: 05/09/18 21:56 Dose: 5 ml Vancomycin HCl 1,250 mg/ (Dextrose) 250 mls @ 250 mls/2 hr IVPB Q24H [facility]; Protocol Last Admin: 05/10/18 11:25 Dose: 250 mls/2 hr Piperacillin Sod/Tazobactam (Sod 4.5 gm/ Dextrose) 100 mls @ 200 mls/hr IVPB Q8H-IV [facility]; Protocol Last Admin: 05/10/18 11:24 Dose: 200 mls/hr Insulin Aspart (Novolog Vial Sliding Scale -) 1 vial SQ TIDAC [facility]; Protocol Last Admin: 05/10/18 11:38 Dose: 2 units Insulin Detemir (Levemir Vial) 6 units SQ DAILY@0700 [facility] Last Admin: 05/10/18 06:43 Dose: 6 units Insulin Detemir (Levemir Vial) 3 units SQ HS [facility] Last Admin: 05/09/18 21:56 Dose: Not Given Levothyroxine Sodium (Synthroid -) 25 mcg PO DAILY@0700 [facility] Last Admin: 05/10/18 07:59 Dose: 25 mcg Metoprolol Succinate (Toprol Xl -) 12.5 mg PO DAILY [facility] Last Admin: 05/10/18 11:23 Dose: 12.5 mg Pantoprazole Sodium (Protonix -) 20 mg PO DAILY [facility] Last Admin: 05/10/18 11:24 Dose: 20 mg Ramipril (Altace -) 2.5 mg PO DAILY [facility] Last Admin: 05/10/18 11:24 Dose: 2.5 mg Constitutional: Yes: No Distress Eyes: Yes: Conjunctiva Clear, EOM Intact HENT: Yes: Atraumatic, Normocephalic Neck: Yes: Supple, Trachea Midline Cardiovascular: Yes: Regular Rate and Rhythm Respiratory: Yes: Cough, On Nasal O2, Rhonchi. No: Accessory Muscle Use, Rales , Stridor, Tachypnea, Wheezes ...Inspection: Yes: Other (Erythema and scabbing LACW ) ...Clubbing: No Gastrointestinal: Yes: Normal Bowel Sounds, Soft Renal/: Yes: WNL Breast(s): Yes: Skin Changes, Other (Mastectomy ) Musculoskeletal: Yes: WNL Extremities: Yes: WNL Edema: No Peripheral Pulses WNL: Yes Integumentary: Yes: Erythema, Skin Tear Neurological: Yes: Alert, Oriented ...Motor Strength: WNL Psychiatric: Yes: WNL, Alert, Oriented Labs: Laboratory Results - last 24 hr 05/09/18 05/09/18 05/09/18 11:38 11:38 11:48 WBC 5.8 RBC 2.14 L Hgb 7.1 L Hct 21.2 L MCV 99.0 H MCH 33.0 MCHC 33.4 RDW 14.1 Plt Count 258 MPV 6.9 L Absolute Neuts (auto) 4.7 Neutrophils % 80.0 D Lymphocytes % 10.6 D Monocytes % 8.0 Eosinophils % 1.0 D Basophils % 0.4 Nucleated RBC % 0 Sodium 138 Potassium 5.0 Chloride 103 Carbon Dioxide 27 Anion Gap 8 BUN 10 Creatinine 1.2 H Creat Clearance w eGFR 47.18 POC Glucometer 149 Random Glucose 144 H Calcium 7.3 L Total Bilirubin 0.9 AST 60 H ALT 23 Alkaline Phosphatase 553 H D Total Protein 4.7 L Albumin 1.6 L Stool Occult Blood Blood Type Antibody Screen Crossmatch 05/09/18 05/09/18 05/09/18 16:50 17:30 21:53 WBC RBC Hgb Hct MCV MCH MCHC RDW Plt Count MPV Absolute Neuts (auto) Neutrophils % Lymphocytes % Monocytes % Eosinophils % Basophils % Nucleated RBC % Sodium Potassium Chloride Carbon Dioxide Anion Gap BUN Creatinine Creat Clearance w eGFR POC Glucometer 229 120 Random Glucose Calcium Total Bilirubin AST ALT Alkaline Phosphatase Total Protein Albumin Stool Occult Blood Blood Type B POSITIVE Antibody Screen Negative Crossmatch See Detail 05/10/18 05/10/18 06:34 06:50 WBC RBC Hgb Hct MCV MCH MCHC RDW Plt Count MPV Absolute Neuts (auto) Neutrophils % Lymphocytes % Monocytes % Eosinophils % Basophils % Nucleated RBC % Sodium Potassium Chloride Carbon Dioxide Anion Gap BUN Creatinine Creat Clearance w eGFR POC Glucometer 292 Random Glucose Calcium Total Bilirubin AST ALT Alkaline Phosphatase Total Protein Albumin Stool Occult Blood Positive Blood Type Antibody Screen Crossmatch Problem List - Problems (1) Diabetes Code(s): E11.9 - TYPE 2 DIABETES MELLITUS WITHOUT COMPLICATIONS (2) Pleural effusion Code(s): J90 - PLEURAL EFFUSION, NOT ELSEWHERE CLASSIFIED (3) Pneumonia Code(s): J18.9 - PNEUMONIA, UNSPECIFIED ORGANISM (4) Cellulitis Code(s): L03.90 - CELLULITIS, UNSPECIFIED Qualifiers: Site of cellulitis: unspecified site Qualified Code(s): L03.90 - Cellulitis , unspecified (5) Urinary tract infection Code(s): N39.0 - URINARY TRACT INFECTION, SITE NOT SPECIFIED Qualifiers: Urinary tract infection type: site unspecified Hematuria presence: without hematuria Qualified Code(s): N39.0 - Urinary tract infection, site not specified (6) Weakness generalized Code(s): R53.1 - WEAKNESS (7) Anemia Code(s): D64.9 - ANEMIA, UNSPECIFIED (8) Fever Code(s): R50.9 - FEVER, UNSPECIFIED (9) Hypertension Code(s): I10 - ESSENTIAL (PRIMARY) HYPERTENSION (10) Hypothyroid Code(s): E03.9 - HYPOTHYROIDISM, UNSPECIFIED (11) Scleroderma Code(s): M34.9 - SYSTEMIC SCLEROSIS, UNSPECIFIED Assessment/Plan ABX Per ID Follow cultures O2 as needed Local wound care No clear clinical symptoms consistent with empyema. However, if fevers persist/ worsen-> may need diagnostic pleural tap VTE prophylaxis Dr Villavicencio Problem List - Problems (1) Diabetes Code(s): E11.9 - TYPE 2 DIABETES MELLITUS WITHOUT COMPLICATIONS (2) Pleural effusion Code(s): J90 - PLEURAL EFFUSION, NOT ELSEWHERE CLASSIFIED (3) Pneumonia Code(s): J18.9 - PNEUMONIA, UNSPECIFIED ORGANISM (4) Cellulitis Code(s): L03.90 - CELLULITIS, UNSPECIFIED Qualifiers: Site of cellulitis: unspecified site Qualified Code(s): L03.90 - Cellulitis , unspecified (5) Urinary tract infection Code(s): N39.0 - URINARY TRACT INFECTION, SITE NOT SPECIFIED Qualifiers: Urinary tract infection type: site unspecified Hematuria presence: without hematuria Qualified Code(s): N39.0 - Urinary tract infection, site not specified (6) Weakness generalized Code(s): R53.1 - WEAKNESS (7) Anemia Code(s): D64.9 - ANEMIA, UNSPECIFIED (8) Fever Code(s): R50.9 - FEVER, UNSPECIFIED (9) Hypertension Code(s): I10 - ESSENTIAL (PRIMARY) HYPERTENSION (10) Hypothyroid Code(s): E03.9 - HYPOTHYROIDISM, UNSPECIFIED (11) Scleroderma Code(s): M34.9 - SYSTEMIC SCLEROSIS, UNSPECIFIED
[2018-05-10 13:02] LABS: EOS % 3.7 % (0-4.5); HEMATOCRIT 32.4 % (32.4-45.2); HEMOGLOBIN 11.2 GM/dL (10.7-15.3); LYMPH % 14.4 % (8-40); MCH 32.3 pg (25.7-33.7); MCHC 34.6 g/dl (32.0-36.0); MEAN CELL VOLUME 93.3 fl (80-96); NEUT % 68.9 % (42.8-82.8); PLATELET COUNT 236 K/MM3 (134-434); RBC 3.47 M/mm3 (3.60-5.2); WHITE BLOOD COUNT 5.1 K/mm3 (4.0-10.0)
[2018-05-10 13:40] LABS: ALBUMIN 1.7 g/dl (3.4-5.0); ANION GAP 11 (8-16); BLOOD UREA NITROGEN 15 mg/dL (7-18); CALCIUM 7.6 mg/dL (8.5-10.1); CHLORIDE 97 mmol/L (98-107); CO2 27 mmol/L (21-32); GLUCOSE,RANDOM 144 mg/dL (74-106); POTASSIUM 4.4 mmol/L (3.5-5.1); SODIUM 135 mmol/L (136-145)
[2018-05-10 14:10] LABS: ALK PHOS 519 U/L (45-117); BILIRUBIN,TOTAL 2.3 mg/dL (0.2-1.0); CREATININE 1.4 mg/dL (0.55-1.02); SGOT/AST 63 U/L (15-37); SGPT/ALT 26 U/L (12-78); TOT PROT 5.3 g/dl (6.4-8.2)
--- NOTE | 2018-05-10 15:52 | PN ---
Progress Note (short form) - Note Progress Note: patient seen and examined today Events noted. Chart reviewed Patient feels much better today guard 2 units of packed RBCs Denies chest pain no active bleeding but stool for occult blood positive Afebrile today Vital Signs Temp 98.4 F 05/10/18 15:48 Pulse 82 05/10/18 15:48 Resp 19 05/10/18 15:48 BP 127/65 05/10/18 15:48 Pulse Ox 97 05/10/18 09:00 Intake & Output 05/09/18 05/10/18 05/10/18 23:59 11:59 23:59 Intake Total 420 Balance 420 Intake: Oral 420 Other: Voiding Method Diaper Diaper # Unmeasured Voids Void 1 1 Bowel Movement No Yes # Bowel Movements 1 Active Medications Acetaminophen (Tylenol -) 650 mg PO Q6HPO PRN PRN Reason: FEVER Last Admin: 05/09/18 10:28 Dose: 650 mg Amino Acids (Prosource No Carb Liquid Pkt) 30 ml PO BID@0800,1730 [facility] Last Admin: 05/10/18 07:59 Dose: 30 ml Enoxaparin Sodium (Lovenox -) 40 mg SQ DAILY [facility] Last Admin: 05/10/18 11:24 Dose: 40 mg Guaifenesin (Diabetic Tussin Dm -) 5 ml PO Q4H PRN PRN Reason: COUGH Last Admin: 05/09/18 21:56 Dose: 5 ml Vancomycin HCl 1,250 mg/ (Dextrose) 250 mls @ 250 mls/2 hr IVPB Q24H [facility]; Protocol Last Admin: 05/10/18 11:25 Dose: 250 mls/2 hr Piperacillin Sod/Tazobactam (Sod 4.5 gm/ Dextrose) 100 mls @ 200 mls/hr IVPB Q8H-IV [facility]; Protocol Last Admin: 05/10/18 11:24 Dose: 200 mls/hr Insulin Aspart (Novolog Vial Sliding Scale -) 1 vial SQ TIDAC [facility]; Protocol Last Admin: 05/10/18 11:38 Dose: 2 units Insulin Detemir (Levemir Vial) 6 units SQ DAILY@0700 [facility] Last Admin: 05/10/18 06:43 Dose: 6 units Insulin Detemir (Levemir Vial) 3 units SQ HS [facility] Last Admin: 05/09/18 21:56 Dose: Not Given Levothyroxine Sodium (Synthroid -) 25 mcg PO DAILY@0700 [facility] Last Admin: 05/10/18 07:59 Dose: 25 mcg Metoprolol Succinate (Toprol Xl -) 12.5 mg PO DAILY [facility] Last Admin: 05/10/18 11:23 Dose: 12.5 mg Pantoprazole Sodium (Protonix -) 20 mg PO DAILY [facility] Last Admin: 05/10/18 11:24 Dose: 20 mg Ramipril (Altace -) 2.5 mg PO DAILY [facility] Last Admin: 05/10/18 11:24 Dose: 2.5 mg CBC, BMP 05/10/18 12:47 05/10/18 12:47 Microbiology 05/07/18 10:25 Urine Culture - Final Urine - Urine Clean Catch Klebsiella Pneumoniae Enterococcus Faecalis 05/07/18 10:20 Blood Culture - Preliminary Blood - Peripheral Venous NO GROWTH OBTAINED AFTER 72 HOURS, INCUBATION TO CONTINUE FOR 2 DAYS. 05/07/18 10:20 Blood Culture - Preliminary Blood - Peripheral Venous NO GROWTH OBTAINED AFTER 72 HOURS, INCUBATION TO CONTINUE FOR 2 DAYS. 05/09/18 10:35 Blood Culture - Preliminary Blood - Peripheral Venous NO GROWTH OBTAINED AFTER 24 HOURS, INCUBATION TO CONTINUE FOR 4 DAYS. 05/09/18 10:50 Blood Culture - Preliminary Blood - Peripheral Venous NO GROWTH OBTAINED AFTER 24 HOURS, INCUBATION TO CONTINUE FOR 4 DAYS. 05/07/18 10:30 Gram Stain - Final Breast - Right Wound Culture - Final S Aureus 05/07/18 10:30 Gram Stain - Final Breast - Left Wound Culture - Final S Aureus Physical Examination Constitutional: Yes: No Distress, Obese. comfortable Eyes: Yes: Conjunctiva Clear Neck: Yes: Supple Cardiovascular: Yes: Regular Rate and Rhythm Respiratory: Yes: Diminished Gastrointestinal: Yes: Soft Edema: No Integumentary: Yes: Rash, Skin Tear, Other (right chest - - reddness/ open wound Neurological: Yes: Alert Psychiatric: Yes: Alert Imaging - Results Chest X-ray: Report Reviewed EKG: Report Reviewed CT chest--- reviewed Problem List - Problems (1) Anemia Code(s): D64.9 - ANEMIA, UNSPECIFIED (2) Weakness generalized Code(s): R53.1 - WEAKNESS (3) Cellulitis Code(s): L03.90 - CELLULITIS, UNSPECIFIED Qualifiers: Site of cellulitis: unspecified site Qualified Code(s): L03.90 - Cellulitis , unspecified (4) Urinary tract infection Code(s): N39.0 - URINARY TRACT INFECTION, SITE NOT SPECIFIED Qualifiers: Urinary tract infection type: site unspecified Hematuria presence: without hematuria Qualified Code(s): N39.0 - Urinary tract infection, site not specified (5) Diabetes type 1, uncontrolled Code(s): E10.65 - TYPE 1 DIABETES MELLITUS WITH HYPERGLYCEMIA (6) Hypoglycemia due to insulin Code(s): E16.0 - DRUG-INDUCED HYPOGLYCEMIA WITHOUT COMA; T38.3X5A - ADVERSE EFFECT OF INSULIN AND ORAL HYPOGLYCEMIC DRUGS, INIT (7) Cough due to JUN inhibitor Code(s): R05 - COUGH; T46.4X5A - ADVERSE EFFECT OF [id number] INHIBITORS, INIT Assessment/Plan clinically looks better Continue abx mrsa precautions continue present care Monitor labs We will consult GI also Will follow Problem List - Problems (1) Anemia Code(s): D64.9 - ANEMIA, UNSPECIFIED (2) Weakness generalized Code(s): R53.1 - WEAKNESS (3) Cellulitis Code(s): L03.90 - CELLULITIS, UNSPECIFIED Qualifiers: Site of cellulitis: unspecified site Qualified Code(s): L03.90 - Cellulitis , unspecified (4) Urinary tract infection Code(s): N39.0 - URINARY TRACT INFECTION, SITE NOT SPECIFIED Qualifiers: Urinary tract infection type: site unspecified Hematuria presence: without hematuria Qualified Code(s): N39.0 - Urinary tract infection, site not specified (5) Diabetes type 1, uncontrolled Code(s): E10.65 - TYPE 1 DIABETES MELLITUS WITH HYPERGLYCEMIA Qualifiers: Chronic kidney disease stage: stage 2 (mild) (6) Hypoglycemia due to insulin Code(s): E16.0 - DRUG-INDUCED HYPOGLYCEMIA WITHOUT COMA; T38.3X5A - ADVERSE EFFECT OF INSULIN AND ORAL HYPOGLYCEMIC DRUGS, INIT (7) Cough due to JUN inhibitor Code(s): R05 - COUGH; T46.4X5A - ADVERSE EFFECT OF [id number] INHIBITORS, INIT
[2018-05-10] MEDS: guaiFENesin/D-M SUGAR-FREE/ACLHOL-FREE 118 ML BOTTLE PO PRN (23:39)
[2018-05-11] MEDS ORDERED: PIPERACILLIN/TAZOBACTAM 4.5 GM VIAL IVPB ONE ×3 (01:14→18:13)
[2018-05-11] MEDS ORDERED: DEXTROSE 5%-WATER 100 ML IVPB ONE ×3 (01:14→18:13)
[2018-05-11] MEDS: PIPERACILLIN/TAZOB 4.5 GM 4.5 GM in DEXTROSE 5%-WATER 100 ML IVPB SCH ×3 (02:39→18:34)
[2018-05-11] MEDS: guaiFENesin/D-M SUGAR-FREE/ACLHOL-FREE 118 ML BOTTLE PO PRN (04:29)
[2018-05-11] MEDS: INSULIN SLIDING SCALE (NOVOLOG) 1 VIAL SQ SCH ×3 (06:41→18:17)
[2018-05-11] MEDS: LEVOTHYROXINE NA 25 MCG TABLET (FP) PO SCH (06:42)
[2018-05-11] MEDS: INSULIN (LEVEMIR) 100 UNITS/ML UNITS SQ SCH ×2 (06:42→22:17)
[2018-05-11] MEDS: AMINO ACIDS/PROTEIN HYDROLYS 30 ML LIQUID.PKT PO SCH ×2 (08:19→18:34)
--- NOTE | 2018-05-11 09:30 | CON.GI ---
Consult Consult Specialty:: GI Referred by:: Dr. Gertrude Oswald Reason for Consultation:: Anemia - History of Present Illness Chief Complaint: Weakness History of Present Illness: 52F admitted for evaluation of weakness. Asked to evaluate anemia dna guaiac positive stool. patient followed by marketing development manager Dr. Luzma Roland. Ms. Dixon admits to poor follow-up with her physicians and believes that she last had colonoscopy about 5 years ago. She has a history of heavy alcohol abuse and still drinks 2 gin drinks per night. She has a chronic macrocytic anemia. There has been no overt bleeding or melena. A stool specimen sent for occult blood was positive during this admission. She is being treated for a UTI. urobilonogen was elevated in her UA. Her ALP hasd been chronically elevated and her bilirubin was normal through this admission up until yesterday when it raquel to 2.3. She believes that she has had a work-up iof her abnormal liver chemistries with Dr. Roland in the past however she does not know the specifics of the work-up and is a poor historian when it comes to this. Her father had colon cancer as did her paternal GM. She describes loose BM's since being on antibiotics while admitted. Stool c. diff is pending. Hematology is seeing her for anemia: suspected to be multifactorial. She was transfused 2 UPRBC friday. 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 breast cancer--2009. 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 s/p bilateral mastectomies/axillary lymphadenectomy. s/p RT to Lt. chestwall. s/p adjuvant chemotherapy - Past Surgical History Past Surgical History: Yes: Appendectomy, , Mastectomy (Bilateral) Additional Surgical History: Ureteral stent placement and lithotripsy secondary to nephrolithiasis - Alcohol/Substance Use Hx Alcohol Use: Yes (2-3 gin drinks per day, heavier in past) History of Substance Use: reports: None - Smoking History Smoking history: Never smoked Have you smoked in the past 12 months: No Aproximately how many cigarettes per day: 0 - Social History ADL: Family Assistance Occupation: Unemployed Place of : [facility] History of Recent Travel: No Home Medications - Allergies Allergies/Adverse Reactions: Allergies Allergy/AdvReac Type Severity Reaction Status Date / Time Sulfa (Sulfonamide Allergy Intermediate Hives Verified 11/30/17 13:10 Antibiotics) [Sulfa(Sulfonamide Antibiotics)] terbinafine HCl Allergy Intermediate Rash Verified 11/30/17 13:10 [From Lamisil] - Home Medications Home Medications: Ambulatory Orders Levothyroxine [Synthroid -] 25 mcg PO DAILY@0700 #30 tablet 06/20/14 Metoprolol Succinate [Toprol XL -] 12.5 mg PO DAILY 07/19/14 Insulin (Novolog) [Novolog Flexpen -] 5 units SQ HS 02/14/15 Mauri Cit/Mag/D3/Zn/Freight Engineer/Atif/Bor [Citracal-Vit D + Magnesium Tab] 1 each PO DAILY 11/30/17 Multivitamin [One Daily] 1 each PO DAILY 11/30/17 Omeprazole 20 mg PO DAILY 11/30/17 Insulin (Levemir) [Levemir Vial] 4 units SQ HS ml 12/02/17 Insulin (Levemir) [Levemir Vial] 6 units SQ DAILY@0700 ml 12/02/17 Ramipril 2.5 mg PO DAILY 05/07/18 Family Disease History - Family Disease History Family Disease History: CA: Grandparent (paternal grandmother --colon ca// maternal grandmother --breast cancer), Father (colon cancer; had kidney stones) , Mother (; also was on dialysis; had no diabetes), Other: Sister (kidney stones younger sister, colon polyps) Review of Systems - Review of Systems Constitutional: denies: Chills Cardiovascular: denies: Chest Pain Respiratory: denies: SOB Gastrointestinal: reports: Diarrhea (since on antibiotics). denies: Melena, Rectal Bleeding Physical Exam-GI Vital Signs: Vital Signs Temperature 98.7 F 05/11/18 06:00 Pulse Rate 88 05/11/18 09:00 Respiratory Rate 18 05/11/18 06:00 Blood Pressure 136/87 05/11/18 06:00 O2 Sat by Pulse Oximetry (%) 97 05/10/18 21:00 Constitutional: Yes: Calm Eyes: No: Sclera Icterus Cardiovascular: Yes: Regular Rate and Rhythm. No: Murmur Respiratory: Yes: CTA Bilaterally Gastrointestinal Inspection: Yes: Scars (+ Pelvic scar, + RLQ scar). No: Distention ...Auscultate: Yes: Normoactive Bowel Sounds ...Palpate: Yes: Hepatomegaly, Soft, Tenderness (mild TTP RUQ). No: Splenomegaly ...Percussion: No: Tympanitic ...Rectal Exam: Yes: Other (Material Combiner present: No external lesions, no masses, stool light brown / vargas / loose, guaiac negative) Edema: No (No LE edema) Neurological: Yes: Alert, Oriented Labs: CBC, BMP 05/10/18 12:47 05/10/18 12:47 INR, PTT INR 0.89 (0.82-1.09) 05/07/18 13:08 Laboratory Tests 02/15/15 05:30 Hepatitis A Ab Total Negative Hep Bs Antigen Negative Hep Bs Antibody Non reactive Hep B Core Total Ab Negative Hepatitis C Ab (EIA) <0.1 Problem List - Problems (1) Anemia Assessment/Plan: Macrocytic: Guaiac positive on specimen sent to lab however no history of overt bleeding and guaiac negative on my exam Continued hematology evalutaiton. Also, with rise in bilirubin, ? component of hemolysis Discussed possible EGD and Colonoscopy to exclude intraluminal source. Discussed potential risks of the procedures like but not limited to bleeding, perforation requiring surgery to repair, infection, sedation medication effects all of which could be potentially life threatening. She has agreed to the procedures. Timing of the procedures will be based on clinical course. Iron studies ordered Code(s): D64.9 - ANEMIA, UNSPECIFIED Qualifiers: Anemia type: unspecified type Qualified Code(s): D64.9 - Anemia, unspecified (2) Abnormal liver function tests Assessment/Plan: Component of alcohol abuse. It sounds as though she has negelected outpagtient follow-up with her marketing development manager regarding this and unclear what her PMD has worked up regarding this. Advised: Complete alcohol cessation Mitochondrial antibody ordered Non-contrast MRI/MRCP ordered Code(s): R94.5 - ABNORMAL RESULTS OF LIVER FUNCTION STUDIES (3) Diarrhea Assessment/Plan: Started during admission Awaiting stool C. Diff. Code(s): R19.7 - DIARRHEA, UNSPECIFIED Qualifiers: Diarrhea type: unspecified type Qualified Code(s): R19.7 - Diarrhea, unspecified
[2018-05-11 10:09] LABS: ALBUMIN 1.6 g/dl (3.4-5.0); ALK PHOS 465 U/L (45-117); ANION GAP 12 (8-16); BILIRUBIN,DIRECT 0.7 mg/dL (0.0-0.2); BLOOD UREA NITROGEN 19 mg/dL (7-18); CALCIUM 7.4 mg/dL (8.5-10.1); CHLORIDE 101 mmol/L (98-107); CO2 23 mmol/L (21-32); CREATININE 1.5 mg/dL (0.55-1.02); GLUCOSE,RANDOM 142 mg/dL (74-106); POTASSIUM 3.9 mmol/L (3.5-5.1); SGOT/AST 39 U/L (15-37); SGPT/ALT 23 U/L (12-78); SODIUM 136 mmol/L (136-145); TOT PROT 5.1 g/dl (6.4-8.2)
--- NOTE | 2018-05-11 10:20 | PN ---
Progress Note (short form) - Note Progress Note: feels better +ve diarrhea c diff + denies pain gi consult noted/ aprreciated discussed with Dr. Joni zavala Vital Signs Temp 98.7 F 05/11/18 06:00 Pulse 103 H 05/11/18 06:00 Resp 18 05/11/18 06:00 BP 136/87 05/11/18 06:00 Pulse Ox 97 05/10/18 21:00 Intake & Output 05/10/18 05/10/18 05/11/18 11:59 23:59 11:59 Intake Total 450 1750 100 Balance 450 1750 100 Intake: IVPB 100 550 100 Oral 850 0 Packed Cells 350 350 Other: Voiding Method Diaper Diaper # Unmeasured Voids Void 1 1 2 Bowel Movement Yes Yes Yes # Bowel Movements 1 1 Active Medications Acetaminophen (Tylenol -) 650 mg PO Q6HPO PRN PRN Reason: FEVER Last Admin: 05/09/18 10:28 Dose: 650 mg Amino Acids (Prosource No Carb Liquid Pkt) 30 ml PO BID@0800,1730 [facility] Last Admin: 05/11/18 08:19 Dose: 30 ml Enoxaparin Sodium (Lovenox -) 40 mg SQ DAILY [facility] Last Admin: 05/10/18 11:24 Dose: 40 mg Guaifenesin (Diabetic Tussin Dm -) 5 ml PO Q4H PRN PRN Reason: COUGH Last Admin: 05/11/18 04:29 Dose: 5 ml Vancomycin HCl 1,250 mg/ (Dextrose) 250 mls @ 250 mls/2 hr IVPB Q24H [facility]; Protocol Last Admin: 05/10/18 11:25 Dose: 250 mls/2 hr Piperacillin Sod/Tazobactam (Sod 4.5 gm/ Dextrose) 100 mls @ 200 mls/hr IVPB Q8H-IV [facility]; Protocol Last Admin: 05/11/18 02:39 Dose: 200 mls/hr Insulin Aspart (Novolog Vial Sliding Scale -) 1 vial SQ TIDAC [facility]; Protocol Last Admin: 05/11/18 06:41 Dose: 6 units Insulin Detemir (Levemir Vial) 6 units SQ DAILY@0700 [facility] Last Admin: 05/11/18 06:42 Dose: 6 units Insulin Detemir (Levemir Vial) 3 units SQ HS [facility] Last Admin: 05/10/18 22:02 Dose: Not Given Levothyroxine Sodium (Synthroid -) 25 mcg PO DAILY@0700 [facility] Last Admin: 05/11/18 06:42 Dose: 25 mcg Metoprolol Succinate (Toprol Xl -) 12.5 mg PO DAILY [facility] Last Admin: 05/10/18 11:23 Dose: 12.5 mg Pantoprazole Sodium (Protonix -) 20 mg PO DAILY [facility] Last Admin: 05/10/18 11:24 Dose: 20 mg Ramipril (Altace -) 2.5 mg PO DAILY [facility] Last Admin: 05/10/18 11:24 Dose: 2.5 mg CBC, BMP 05/10/18 12:47 Microbiology 05/10/18 16:00 Clostridium difficile Antigen (HERMAN) - Preliminary Stool Clostridium difficile Toxin Assay - Preliminary 05/07/18 10:25 Urine Culture - Final Urine - Urine Clean Catch Klebsiella Pneumoniae Enterococcus Faecalis 05/07/18 10:20 Blood Culture - Preliminary Blood - Peripheral Venous NO GROWTH OBTAINED AFTER 72 HOURS, INCUBATION TO CONTINUE FOR 2 DAYS. 05/07/18 10:20 Blood Culture - Preliminary Blood - Peripheral Venous NO GROWTH OBTAINED AFTER 72 HOURS, INCUBATION TO CONTINUE FOR 2 DAYS. 05/09/18 10:35 Blood Culture - Preliminary Blood - Peripheral Venous NO GROWTH OBTAINED AFTER 24 HOURS, INCUBATION TO CONTINUE FOR 4 DAYS. 05/09/18 10:50 Blood Culture - Preliminary Blood - Peripheral Venous NO GROWTH OBTAINED AFTER 24 HOURS, INCUBATION TO CONTINUE FOR 4 DAYS. Physical Examination Constitutional: Yes: No Distress, Obese. comfortable Eyes: Yes: Conjunctiva Clear Neck: Yes: Supple Cardiovascular: Yes: Regular Rate and Rhythm Respiratory: Yes: Diminished Gastrointestinal: Yes: Soft/ non tender Edema: No Integumentary: Yes: Rash, Skin Tear, Other (right chest - - reddness/ open wound Neurological: Yes: Alert Psychiatric: Yes: Alert Imaging - Results Chest X-ray: Report Reviewed EKG: Report Reviewed CT chest--- reviewed Assessment/Plan clinically looks better Continue abx mrsa precautions continue present care abx per i/d Monitor labs i/d to follow po vanco ? will follow Problem List - Problems (1) Anemia Code(s): D64.9 - ANEMIA, UNSPECIFIED (2) Weakness generalized Code(s): R53.1 - WEAKNESS (3) Cellulitis Code(s): L03.90 - CELLULITIS, UNSPECIFIED Qualifiers: Site of cellulitis: unspecified site Qualified Code(s): L03.90 - Cellulitis , unspecified (4) Urinary tract infection Code(s): N39.0 - URINARY TRACT INFECTION, SITE NOT SPECIFIED Qualifiers: Urinary tract infection type: site unspecified Hematuria presence: without hematuria Qualified Code(s): N39.0 - Urinary tract infection, site not specified (5) Diabetes type 1, uncontrolled Code(s): E10.65 - TYPE 1 DIABETES MELLITUS WITH HYPERGLYCEMIA Qualifiers: Chronic kidney disease stage: stage 2 (mild) (6) Hypoglycemia due to insulin Code(s): E16.0 - DRUG-INDUCED HYPOGLYCEMIA WITHOUT COMA; T38.3X5A - ADVERSE EFFECT OF INSULIN AND ORAL HYPOGLYCEMIC DRUGS, INIT (7) Cough due to JUN inhibitor Code(s): R05 - COUGH; T46.4X5A - ADVERSE EFFECT OF [id number] INHIBITORS, INIT
[2018-05-11] MEDS: ENOXAPARIN NA (PORCINE) 40 MG/0.4 ML DISP.SYRIN SQ SCH (11:09)
[2018-05-11] MEDS: metoPROLOL SUCCINATE 25 MG TAB.SR.24H (FP) PO SCH (11:09)
[2018-05-11] MEDS: PANTOPRAZOLE 20 MG TABLET (FP) PO SCH (11:10)
[2018-05-11] MEDS: RAMIPRIL 2.5 MG CAPSULE (FP) PO SCH (11:10)
--- NOTE | 2018-05-11 11:47 | PN ---
Progress Note (short form) - Note Progress Note: ID Vanco and Zosyn Clinically much better though nurse report intemittent couph with then diarrhea stools Temps down Selected Entries 05/11/18 06:00 Temperature 98.7 F Pulse Rate 103 H Respiratory 18 Rate Blood Pressure 136/87 Microbiology 05/07/18 10:30 Breast - Right Gram Stain - Final 05/07/18 10:30 Breast - Right Wound Culture - Final S Aureus 05/07/18 10:30 Breast - Left Gram Stain - Final 05/07/18 10:30 Breast - Left Wound Culture - Final S Aureus 05/07/18 10:25 Urine - Urine Clean Catch Urine Culture - Final Klebsiella Pneumoniae Enterococcus Faecalis 05/09/18 10:50 Blood - Peripheral Venous Blood Culture - Preliminary NO GROWTH OBTAINED AFTER 48 HOURS, INCUBATION TO CONTINUE FOR 3 DAYS. 05/09/18 10:35 Blood - Peripheral Venous Blood Culture - Preliminary NO GROWTH OBTAINED AFTER 48 HOURS, INCUBATION TO CONTINUE FOR 3 DAYS. Laboratory Tests 05/07/18 05/08/18 05/10/18 10:44 07:00 12:47 WBC 5.1 Hgb 11.2 Hct 32.4 D Plt Count 236 ESR 46 H BUN Creat Clearance w eGFR Albumin Ur Leukocyte Esterase 2+ H Urine Bacteria Many Vancomycin Pre-Dose 05/11/18 05/11/18 09:11 09:11 WBC Hgb Hct Plt Count ESR BUN 19 H Creat Clearance w eGFR 36.47 Albumin 1.6 L Ur Leukocyte Esterase Urine Bacteria Vancomycin Pre-Dose Pending Assessment Sepsis syndrome urinary tract and ? chest wall wound.. Now with C diff ag positive and nurse reports diarrhea so treat Left plerual effusions Plan Vancomycin and Zosyn continue now day 2 (2 days ago acutely ill with fever) treat totol 5 days Add oral vancomycin 10 days Consider pleural effusions thoracentesis Noa GAYTAN Problem List - Problems (1) Urinary tract infection Code(s): N39.0 - URINARY TRACT INFECTION, SITE NOT SPECIFIED Qualifiers: Urinary tract infection type: site unspecified Hematuria presence: without hematuria Qualified Code(s): N39.0 - Urinary tract infection, site not specified (2) Anemia Code(s): D64.9 - ANEMIA, UNSPECIFIED (3) Fatty liver, alcoholic Code(s): K70.0 - ALCOHOLIC FATTY LIVER
--- NOTE | 2018-05-11 12:21 | PN ---
Progress Note, Physician History of Present Illness: PULMONARY ALERT,+ COUGH WHEN LAYING FLAT,+ WHEN LAYING FLAT,-CP - Current Medication List Current Medications: Active Medications Acetaminophen (Tylenol -) 650 mg PO Q6HPO PRN PRN Reason: FEVER Last Admin: 05/09/18 10:28 Dose: 650 mg Amino Acids (Prosource No Carb Liquid Pkt) 30 ml PO BID@0800,1730 [facility] Last Admin: 05/11/18 08:19 Dose: 30 ml Enoxaparin Sodium (Lovenox -) 40 mg SQ DAILY [facility] Last Admin: 05/11/18 11:09 Dose: 40 mg Guaifenesin (Diabetic Tussin Dm -) 5 ml PO Q4H PRN PRN Reason: COUGH Last Admin: 05/11/18 04:29 Dose: 5 ml Vancomycin HCl 1,250 mg/ (Dextrose) 250 mls @ 250 mls/2 hr IVPB Q24H [facility]; Protocol Last Admin: 05/10/18 11:25 Dose: 250 mls/2 hr Piperacillin Sod/Tazobactam (Sod 4.5 gm/ Dextrose) 100 mls @ 200 mls/hr IVPB Q8H-IV [facility]; Protocol Last Admin: 05/11/18 11:12 Dose: 200 mls/hr Insulin Aspart (Novolog Vial Sliding Scale -) 1 vial SQ TIDAC [facility]; Protocol Last Admin: 05/11/18 12:15 Dose: Not Given Insulin Detemir (Levemir Vial) 6 units SQ DAILY@0700 [facility] Last Admin: 05/11/18 06:42 Dose: 6 units Insulin Detemir (Levemir Vial) 3 units SQ HS [facility] Last Admin: 05/10/18 22:02 Dose: Not Given Levothyroxine Sodium (Synthroid -) 25 mcg PO DAILY@0700 [facility] Last Admin: 05/11/18 06:42 Dose: 25 mcg Metoprolol Succinate (Toprol Xl -) 12.5 mg PO DAILY [facility] Last Admin: 05/11/18 11:09 Dose: 12.5 mg Pantoprazole Sodium (Protonix -) 20 mg PO DAILY [facility] Last Admin: 05/11/18 11:10 Dose: 20 mg Ramipril (Altace -) 2.5 mg PO DAILY [facility] Last Admin: 05/11/18 11:10 Dose: 2.5 mg Vancomycin HCl (Vancomycin Oral Solution) 125 mg PO Q6HPO [facility] - Objective Vital Signs: Vital Signs Temperature 98.7 F 05/11/18 06:00 Pulse Rate 103 H 05/11/18 06:00 Respiratory Rate 18 05/11/18 06:00 Blood Pressure 136/87 05/11/18 06:00 O2 Sat by Pulse Oximetry (%) 97 05/10/18 21:00 Constitutional: Yes: Well Nourished, Calm Eyes: Yes: WNL HENT: Yes: WNL Neck: Yes: WNL Cardiovascular: Yes: Regular Rate and Rhythm, S1, S2 Respiratory: Yes: Diminished Gastrointestinal: Yes: Normal Bowel Sounds, Soft Extremities: Yes: WNL Edema: No Labs: CBC, BMP 05/11/18 09:11 INR, PTT INR 0.89 (0.82-1.09) 05/07/18 13:08 Assessment/Plan Problem List - Problems (1) Diabetes Code(s): E11.9 - TYPE 2 DIABETES MELLITUS WITHOUT COMPLICATIONS (2) Pleural effusion Code(s): J90 - PLEURAL EFFUSION, NOT ELSEWHERE CLASSIFIED (3) Pneumonia Code(s): J18.9 - PNEUMONIA, UNSPECIFIED ORGANISM (4) Cellulitis Code(s): L03.90 - CELLULITIS, UNSPECIFIED Qualifiers: Site of cellulitis: unspecified site Qualified Code(s): L03.90 - Cellulitis , unspecified (5) Urinary tract infection Code(s): N39.0 - URINARY TRACT INFECTION, SITE NOT SPECIFIED Qualifiers: Urinary tract infection type: site unspecified Hematuria presence: without hematuria Qualified Code(s): N39.0 - Urinary tract infection, site not specified (6) Weakness generalized Code(s): R53.1 - WEAKNESS (7) Anemia Code(s): D64.9 - ANEMIA, UNSPECIFIED (8) Fever Code(s): R50.9 - FEVER, UNSPECIFIED (9) Hypertension Code(s): I10 - ESSENTIAL (PRIMARY) HYPERTENSION (10) Hypothyroid Code(s): E03.9 - HYPOTHYROIDISM, UNSPECIFIED (11) Scleroderma Code(s): M34.9 - SYSTEMIC SCLEROSIS, UNSPECIFIED Assessment/Plan ABX Per ID Follow cultures O2 as needed Local wound care diagnostic thoracentesis VTE prophylaxis Dr Tian Problem List - Problems (1) Diabetes Code(s): E11.9 - TYPE 2 DIABETES MELLITUS WITHOUT COMPLICATIONS (2) Pleural effusion Code(s): J90 - PLEURAL EFFUSION, NOT ELSEWHERE CLASSIFIED (3) Pneumonia Code(s): J18.9 - PNEUMONIA, UNSPECIFIED ORGANISM (4) Cellulitis Code(s): L03.90 - CELLULITIS, UNSPECIFIED Qualifiers: Site of cellulitis: unspecified site Qualified Code(s): L03.90 - Cellulitis , unspecified (5) Urinary tract infection Code(s): N39.0 - URINARY TRACT INFECTION, SITE NOT SPECIFIED Qualifiers: Urinary tract infection type: site unspecified Hematuria presence: without hematuria Qualified Code(s): N39.0 - Urinary tract infection, site not specified (6) Weakness generalized Code(s): R53.1 - WEAKNESS (7) Anemia Code(s): D64.9 - ANEMIA, UNSPECIFIED (8) Fever Code(s): R50.9 - FEVER, UNSPECIFIED (9) Hypertension Code(s): I10 - ESSENTIAL (PRIMARY) HYPERTENSION (10) Hypothyroid Code(s): E03.9 - HYPOTHYROIDISM, UNSPECIFIED (11) Scleroderma Code(s): M34.9 - SYSTEMIC SCLEROSIS, UNSPECIFIED
[2018-05-11] MEDS: VANCOMYCIN 1,250 MG in DEXTROSE 5%-WATER - 250 ML IVPB SCH (14:27)
[2018-05-11] MEDS: VANCOMYCIN 250 MG/5 ML ORAL SOLUTION PO SCH ×2 (14:56→18:34)
[2018-05-12] MEDS ORDERED: PIPERACILLIN/TAZOBACTAM 4.5 GM VIAL IVPB ONE ×3 (00:03→17:42)
[2018-05-12] MEDS ORDERED: DEXTROSE 5%-WATER 100 ML IVPB ONE ×3 (00:03→17:42)
[2018-05-12] MEDS: VANCOMYCIN 250 MG/5 ML ORAL SOLUTION PO SCH ×4 (00:04→17:43)
[2018-05-12] MEDS: guaiFENesin/D-M SUGAR-FREE/ACLHOL-FREE 118 ML BOTTLE PO PRN ×3 (00:05→22:20)
[2018-05-12] MEDS: PIPERACILLIN/TAZOB 4.5 GM 4.5 GM in DEXTROSE 5%-WATER 100 ML IVPB SCH ×3 (01:49→17:43)
[2018-05-12] MEDS: INSULIN (LEVEMIR) 100 UNITS/ML UNITS SQ SCH ×2 (06:33→22:23)
[2018-05-12] MEDS: INSULIN SLIDING SCALE (NOVOLOG) 1 VIAL SQ SCH ×3 (06:33→17:40)
[2018-05-12] MEDS ORDERED: INSULIN (NOVOLOG) ASPART 100 UNITS/ML 10ML VIAL ONE (06:42)
[2018-05-12] MEDS: LEVOTHYROXINE NA 25 MCG TABLET (FP) PO SCH (07:00)
[2018-05-12] MEDS: AMINO ACIDS/PROTEIN HYDROLYS 30 ML LIQUID.PKT PO SCH ×2 (08:30→17:40)
[2018-05-12] MEDS: PANTOPRAZOLE 20 MG TABLET (FP) PO SCH (10:28)
[2018-05-12] MEDS: metoPROLOL SUCCINATE 25 MG TAB.SR.24H (FP) PO SCH (10:28)
[2018-05-12] MEDS: RAMIPRIL 2.5 MG CAPSULE (FP) PO SCH (10:28)
--- NOTE | 2018-05-12 12:50 | PN ---
Progress Note (short form) - Note Progress Note: Clinically appears better. Just returning from thoracentesis. Reports breathing feels better. Some dry cough. No pleuritic type pain. Intake & Output 05/09/18 05/10/18 05/11/18 05/12/18 23:59 23:59 23:59 23:59 Intake Total 420 2200 770 Balance 420 2200 770 Last Vital Signs Temp Pulse Resp BP Pulse Ox 98.2 F 86 20 160/82 97 05/12/18 04:40 05/12/18 10:37 05/12/18 10:37 05/12/18 10:37 05/11/18 21:00 Active Medications Acetaminophen (Tylenol -) 650 mg PO Q6HPO PRN PRN Reason: FEVER Last Admin: 05/09/18 10:28 Dose: 650 mg Amino Acids (Prosource No Carb Liquid Pkt) 30 ml PO BID@0800,1730 [facility] Last Admin: 05/12/18 08:30 Dose: 30 ml Enoxaparin Sodium (Lovenox -) 40 mg SQ DAILY [facility] Last Admin: 05/11/18 11:09 Dose: 40 mg Guaifenesin (Diabetic Tussin Dm -) 5 ml PO Q4H PRN PRN Reason: COUGH Last Admin: 05/12/18 05:45 Dose: 5 ml Piperacillin Sod/Tazobactam (Sod 4.5 gm/ Dextrose) 100 mls @ 200 mls/hr IVPB Q8H-IV [facility]; Protocol Last Admin: 05/12/18 10:27 Dose: 200 mls/hr Insulin Aspart (Novolog Vial Sliding Scale -) 1 vial SQ TIDAC [facility]; Protocol Last Admin: 05/12/18 06:33 Dose: 4 units Insulin Detemir (Levemir Vial) 6 units SQ DAILY@0700 [facility] Last Admin: 05/12/18 06:33 Dose: 6 units Insulin Detemir (Levemir Vial) 3 units SQ HS [facility] Last Admin: 05/11/18 22:17 Dose: Not Given Levothyroxine Sodium (Synthroid -) 25 mcg PO DAILY@0700 [facility] Last Admin: 05/12/18 07:00 Dose: 25 mcg Metoprolol Succinate (Toprol Xl -) 12.5 mg PO DAILY [facility] Last Admin: 05/12/18 10:28 Dose: 12.5 mg Pantoprazole Sodium (Protonix -) 20 mg PO DAILY [facility] Last Admin: 05/12/18 10:28 Dose: 20 mg Ramipril (Altace -) 2.5 mg PO DAILY [facility] Last Admin: 05/12/18 10:28 Dose: 2.5 mg Vancomycin HCl (Vancomycin Oral Solution) 125 mg PO Q6HPO [facility] Last Admin: 05/12/18 05:39 Dose: 125 mg Constitutional: Yes: No Distress Eyes: Yes: Conjunctiva Clear, EOM Intact HENT: Yes: Atraumatic, Normocephalic Neck: Yes: Supple, Trachea Midline Cardiovascular: Yes: Regular Rate and Rhythm Respiratory: Yes: Cough, On Nasal O2, Rhonchi. No: Accessory Muscle Use, Rales , Stridor, Tachypnea, Wheezes ...Inspection: Yes: Other (Erythema and scabbing LACW ) ...Clubbing: No Gastrointestinal: Yes: Normal Bowel Sounds, Soft Renal/: Yes: WNL Breast(s): Yes: Skin Changes, Other (Mastectomy ) Musculoskeletal: Yes: WNL Extremities: Yes: WNL Edema: No Peripheral Pulses WNL: Yes Integumentary: Yes: Erythema, Skin Tear Neurological: Yes: Alert, Oriented ...Motor Strength: WNL Psychiatric: Yes: WNL, Alert, Oriented Labs: Laboratory Results - last 24 hr 05/10/18 05/11/18 05/11/18 12:47 09:11 09:11 Hct 32.7 L POC Glucometer Ferritin 358.3 H Folate 1703 Folate Hemolysate 556.9 Vancomycin Pre-Dose 31.46 H* 05/11/18 05/11/18 05/12/18 17:41 22:12 05:35 Hct POC Glucometer 60 175 384 Ferritin Folate Folate Hemolysate Vancomycin Pre-Dose 05/12/18 10:46 Hct POC Glucometer 199 Ferritin Folate Folate Hemolysate Vancomycin Pre-Dose Problem List - Problems (1) Diabetes Code(s): E11.9 - TYPE 2 DIABETES MELLITUS WITHOUT COMPLICATIONS (2) Pleural effusion Code(s): J90 - PLEURAL EFFUSION, NOT ELSEWHERE CLASSIFIED (3) Pneumonia Code(s): J18.9 - PNEUMONIA, UNSPECIFIED ORGANISM (4) Cellulitis Code(s): L03.90 - CELLULITIS, UNSPECIFIED Qualifiers: Site of cellulitis: unspecified site Qualified Code(s): L03.90 - Cellulitis , unspecified (5) Urinary tract infection Code(s): N39.0 - URINARY TRACT INFECTION, SITE NOT SPECIFIED Qualifiers: Urinary tract infection type: site unspecified Hematuria presence: without hematuria Qualified Code(s): N39.0 - Urinary tract infection, site not specified (6) Weakness generalized Code(s): R53.1 - WEAKNESS (7) Anemia Code(s): D64.9 - ANEMIA, UNSPECIFIED (8) Fever Code(s): R50.9 - FEVER, UNSPECIFIED (9) Hypertension Code(s): I10 - ESSENTIAL (PRIMARY) HYPERTENSION (10) Hypothyroid Code(s): E03.9 - HYPOTHYROIDISM, UNSPECIFIED (11) Scleroderma Code(s): M34.9 - SYSTEMIC SCLEROSIS, UNSPECIFIED Assessment/Plan Follow Plueral fluid analysis ABX Per ID O2 as needed Local wound care VTE prophylaxis Dr Villavicencio Problem List - Problems (1) Diabetes Code(s): E11.9 - TYPE 2 DIABETES MELLITUS WITHOUT COMPLICATIONS (2) Pleural effusion Code(s): J90 - PLEURAL EFFUSION, NOT ELSEWHERE CLASSIFIED (3) Pneumonia Code(s): J18.9 - PNEUMONIA, UNSPECIFIED ORGANISM (4) Cellulitis Code(s): L03.90 - CELLULITIS, UNSPECIFIED Qualifiers: Site of cellulitis: unspecified site Qualified Code(s): L03.90 - Cellulitis , unspecified (5) Urinary tract infection Code(s): N39.0 - URINARY TRACT INFECTION, SITE NOT SPECIFIED Qualifiers: Urinary tract infection type: site unspecified Hematuria presence: without hematuria Qualified Code(s): N39.0 - Urinary tract infection, site not specified (6) Weakness generalized Code(s): R53.1 - WEAKNESS (7) Anemia Code(s): D64.9 - ANEMIA, UNSPECIFIED (8) Fever Code(s): R50.9 - FEVER, UNSPECIFIED (9) Hypertension Code(s): I10 - ESSENTIAL (PRIMARY) HYPERTENSION (10) Hypothyroid Code(s): E03.9 - HYPOTHYROIDISM, UNSPECIFIED (11) Scleroderma Code(s): M34.9 - SYSTEMIC SCLEROSIS, UNSPECIFIED
[2018-05-12 13:54] LABS: TOTAL PROTEIN,PLEURAL FLUID 1.345
--- NOTE | 2018-05-12 14:06 | PN ---
Progress Note, Physician Chief Complaint: ID Vancomycin and Zosyn - Current Medication List Current Medications: Active Medications Acetaminophen (Tylenol -) 650 mg PO Q6HPO PRN PRN Reason: FEVER Last Admin: 05/09/18 10:28 Dose: 650 mg Amino Acids (Prosource No Carb Liquid Pkt) 30 ml PO BID@0800,1730 [facility] Last Admin: 05/12/18 08:30 Dose: 30 ml Enoxaparin Sodium (Lovenox -) 40 mg SQ DAILY [facility] Last Admin: 05/11/18 11:09 Dose: 40 mg Guaifenesin (Diabetic Tussin Dm -) 5 ml PO Q4H PRN PRN Reason: COUGH Last Admin: 05/12/18 05:45 Dose: 5 ml Piperacillin Sod/Tazobactam (Sod 4.5 gm/ Dextrose) 100 mls @ 200 mls/hr IVPB Q8H-IV [facility]; Protocol Last Admin: 05/12/18 10:27 Dose: 200 mls/hr Insulin Aspart (Novolog Vial Sliding Scale -) 1 vial SQ TIDAC [facility]; Protocol Last Admin: 05/12/18 06:33 Dose: 4 units Insulin Detemir (Levemir Vial) 6 units SQ DAILY@0700 [facility] Last Admin: 05/12/18 06:33 Dose: 6 units Insulin Detemir (Levemir Vial) 3 units SQ HS [facility] Last Admin: 05/11/18 22:17 Dose: Not Given Levothyroxine Sodium (Synthroid -) 25 mcg PO DAILY@0700 [facility] Last Admin: 05/12/18 07:00 Dose: 25 mcg Metoprolol Succinate (Toprol Xl -) 12.5 mg PO DAILY [facility] Last Admin: 05/12/18 10:28 Dose: 12.5 mg Pantoprazole Sodium (Protonix -) 20 mg PO DAILY [facility] Last Admin: 05/12/18 10:28 Dose: 20 mg Ramipril (Altace -) 2.5 mg PO DAILY [facility] Last Admin: 05/12/18 10:28 Dose: 2.5 mg Vancomycin HCl (Vancomycin Oral Solution) 125 mg PO Q6HPO [facility] Last Admin: 05/12/18 05:39 Dose: 125 mg - Objective Vital Signs: Vital Signs Temperature 98.2 F 05/12/18 04:40 Pulse Rate 86 05/12/18 10:37 Respiratory Rate 20 07/10/18 10:37 Blood Pressure 160/82 05/12/18 10:37 O2 Sat by Pulse Oximetry (%) 97 05/11/18 21:00 Constitutional: Yes: No Distress Neck: Yes: WNL, Supple Cardiovascular: Yes: Regular Rate and Rhythm, S1, S2 Respiratory: Yes: WNL, Regular, CTA Bilaterally Gastrointestinal: Yes: WNL, Normal Bowel Sounds, Soft. No: Tenderness, Tenderness, Epigastrium Labs: CBC, BMP 05/10/18 12:47 05/11/18 09:11 INR, PTT INR 0.89 (0.82-1.09) 05/07/18 13:08 Problem List - Problems (1) Urinary tract infection Code(s): N39.0 - URINARY TRACT INFECTION, SITE NOT SPECIFIED Qualifiers: Urinary tract infection type: site unspecified Hematuria presence: without hematuria Qualified Code(s): N39.0 - Urinary tract infection, site not specified (2) Anemia Code(s): D64.9 - ANEMIA, UNSPECIFIED (3) Fatty liver, alcoholic Code(s): K70.0 - ALCOHOLIC FATTY LIVER Assessment/Plan Microbiology 05/10/18 16:00 Stool Clostridium difficile Antigen (HERMAN) - Final 05/10/18 16:00 Stool Clostridium difficile Toxin Assay - Final 05/07/18 10:30 Breast - Right Gram Stain - Final 05/07/18 10:30 Breast - Right Wound Culture - Final S Aureus 05/07/18 10:30 Breast - Left Gram Stain - Final 05/07/18 10:30 Breast - Left Wound Culture - Final S Aureus 05/07/18 10:25 Urine - Urine Clean Catch Urine Culture - Final Klebsiella Pneumoniae Enterococcus Faecalis Laboratory Tests 05/10/18 05/11/18 05/11/18 12:47 09:11 09:11 WBC 5.1 Plt Count 236 Creat Clearance w eGFR 36.47 Vancomycin Pre-Dose 31.46 H* Assessment UTI and chest wall infection with sepsis much better now Vanco held secondary high level Plan Compete zosyn another 48 hours NO further Vanco needed Noa GAYTAN
[2018-05-12 14:33] LABS: PLEURAL FLUID APPEARANCE CLEAR; PLEURAL FLUID COLOR YELLOW
[2018-05-12 14:34] LABS: PLEURAL FLUID RBC 879 /mm3
[2018-05-12 19:47] LABS: PLEURAL FLUID LYMPHOCYTES 17 %; PLEURAL FLUID MACROPHAGES 54 %; PLEURAL FLUID MESOTHELIAL 4 %; PLEURAL FLUID MONOCYTE 3 %; PLEURAL FLUID NEUTROPHIL 22 %
[2018-05-12] MEDS ORDERED: PT OWN MED DRAWER 7, Y5N ONE (21:56)
[2018-05-12] MEDS: ACETAMINOPHEN 325 MG TABLET (FP) PO PRN (22:24)
--- NOTE | 2018-05-12 22:53 | PN ---
Progress Note, Physician Chief Complaint: has diarrhea no SOB feels weak appetite decreased - Current Medication List Current Medications: Active Medications Acetaminophen (Tylenol -) 650 mg PO Q6HPO PRN PRN Reason: FEVER Last Admin: 05/12/18 22:24 Dose: 650 mg Amino Acids (Prosource No Carb Liquid Pkt) 30 ml PO BID@0800,1730 [facility] Last Admin: 05/12/18 17:40 Dose: 30 ml Enoxaparin Sodium (Lovenox -) 40 mg SQ DAILY [facility] Last Admin: 05/11/18 11:09 Dose: 40 mg Guaifenesin (Diabetic Tussin Dm -) 5 ml PO Q4H PRN PRN Reason: COUGH Last Admin: 05/12/18 22:20 Dose: 5 ml Piperacillin Sod/Tazobactam (Sod 4.5 gm/ Dextrose) 100 mls @ 200 mls/hr IVPB Q8H-IV [facility]; Protocol Last Admin: 05/12/18 17:43 Dose: 200 mls/hr Insulin Aspart (Novolog Vial Sliding Scale -) 1 vial SQ TIDAC [facility]; Protocol Last Admin: 05/12/18 17:40 Dose: 4 units Insulin Detemir (Levemir Vial) 6 units SQ DAILY@0700 [facility] Last Admin: 05/12/18 06:33 Dose: 6 units Insulin Detemir (Levemir Vial) 3 units SQ HS [facility] Last Admin: 05/12/18 22:23 Dose: Not Given Levothyroxine Sodium (Synthroid -) 25 mcg PO DAILY@0700 [facility] Last Admin: 05/12/18 07:00 Dose: 25 mcg Metoprolol Succinate (Toprol Xl -) 12.5 mg PO DAILY [facility] Last Admin: 05/12/18 10:28 Dose: 12.5 mg Pantoprazole Sodium (Protonix -) 20 mg PO DAILY [facility] Last Admin: 05/12/18 10:28 Dose: 20 mg Ramipril (Altace -) 2.5 mg PO DAILY [facility] Last Admin: 05/12/18 10:28 Dose: 2.5 mg Vancomycin HCl (Vancomycin Oral Solution) 125 mg PO Q6HPO [facility] Last Admin: 05/12/18 17:43 Dose: 125 mg - Objective Vital Signs: Vital Signs Temperature 98.2 F 05/12/18 18:00 Pulse Rate 71 05/12/18 18:00 Respiratory Rate 20 05/12/18 18:00 Blood Pressure 126/86 05/12/18 18:00 O2 Sat by Pulse Oximetry (%) 97 05/12/18 09:00 Constitutional: Yes: No Distress Cardiovascular: Yes: Regular Rate and Rhythm Respiratory: Yes: Diminished Gastrointestinal: Yes: Normal Bowel Sounds, Soft. No: Tenderness Edema: No Labs: CBC, BMP 05/10/18 12:47 05/11/18 09:11 INR, PTT INR 0.89 (0.82-1.09) 05/07/18 13:08 Problem List - Problems (1) Cellulitis Code(s): L03.90 - CELLULITIS, UNSPECIFIED Qualifiers: Site of cellulitis: unspecified site Qualified Code(s): L03.90 - Cellulitis , unspecified (2) Diabetes Code(s): E11.9 - TYPE 2 DIABETES MELLITUS WITHOUT COMPLICATIONS (3) Pleural effusion Code(s): J90 - PLEURAL EFFUSION, NOT ELSEWHERE CLASSIFIED (4) Pneumonia Code(s): J18.9 - PNEUMONIA, UNSPECIFIED ORGANISM (5) Weakness generalized Code(s): R53.1 - WEAKNESS (6) Diabetes type 1, uncontrolled Code(s): E10.65 - TYPE 1 DIABETES MELLITUS WITH HYPERGLYCEMIA Qualifiers: Chronic kidney disease stage: stage 2 (mild) (7) Urinary tract infection Code(s): N39.0 - URINARY TRACT INFECTION, SITE NOT SPECIFIED Qualifiers: Urinary tract infection type: site unspecified Hematuria presence: without hematuria Qualified Code(s): N39.0 - Urinary tract infection, site not specified Assessment/Plan PLAN oral vanco for cdiff iv antibiotics per ID nebs diabetic control GI eval
[2018-05-13] MEDS: VANCOMYCIN 250 MG/5 ML ORAL SOLUTION PO SCH ×5 (00:30→23:00)
[2018-05-13] MEDS ORDERED: PIPERACILLIN/TAZOBACTAM 4.5 GM VIAL IVPB ONE ×3 (01:34→18:10)
[2018-05-13] MEDS ORDERED: DEXTROSE 5%-WATER 100 ML IVPB ONE ×3 (01:34→18:10)
[2018-05-13] MEDS: PIPERACILLIN/TAZOB 4.5 GM 4.5 GM in DEXTROSE 5%-WATER 100 ML IVPB SCH ×3 (01:39→18:23)
[2018-05-13] MEDS: LEVOTHYROXINE NA 25 MCG TABLET (FP) PO SCH (06:09)
[2018-05-13] MEDS: INSULIN (LEVEMIR) 100 UNITS/ML UNITS SQ SCH ×2 (06:13→22:58)
[2018-05-13] MEDS: INSULIN SLIDING SCALE (NOVOLOG) 1 VIAL SQ SCH ×3 (06:14→18:24)
[2018-05-13 08:26] LABS: SERUM IRON SATURATION 62 % (15-55); TOTAL IRON BINDING CAPACITY 101 ug/dL (250-450); UIBC 38 ug/dL (131-425)
[2018-05-13] MEDS: AMINO ACIDS/PROTEIN HYDROLYS 30 ML LIQUID.PKT PO SCH ×2 (08:43→18:25)
[2018-05-13] MEDS: RAMIPRIL 2.5 MG CAPSULE (FP) PO SCH (10:42)
[2018-05-13] MEDS: PANTOPRAZOLE 20 MG TABLET (FP) PO SCH (10:42)
[2018-05-13] MEDS: metoPROLOL SUCCINATE 25 MG TAB.SR.24H (FP) PO SCH (10:42)
[2018-05-13] MEDS: ENOXAPARIN NA (PORCINE) 40 MG/0.4 ML DISP.SYRIN SQ SCH (10:53)
--- NOTE | 2018-05-13 12:11 | PN ---
Progress Note, Physician Chief Complaint: s/p thoracentesis states she is breathing better has diarrhea no abdominal pain - Current Medication List Current Medications: Active Medications Acetaminophen (Tylenol -) 650 mg PO Q6HPO PRN PRN Reason: FEVER Last Admin: 05/12/18 22:24 Dose: 650 mg Amino Acids (Prosource No Carb Liquid Pkt) 30 ml PO BID@0800,1730 [facility] Last Admin: 05/13/18 08:43 Dose: 30 ml Enoxaparin Sodium (Lovenox -) 40 mg SQ DAILY [facility] Last Admin: 05/13/18 10:53 Dose: Not Given Guaifenesin (Diabetic Tussin Dm -) 5 ml PO Q4H PRN PRN Reason: COUGH Last Admin: 05/12/18 22:20 Dose: 5 ml Piperacillin Sod/Tazobactam (Sod 4.5 gm/ Dextrose) 100 mls @ 200 mls/hr IVPB Q8H-IV [facility]; Protocol Last Admin: 05/13/18 10:44 Dose: 200 mls/hr Insulin Aspart (Novolog Vial Sliding Scale -) 1 vial SQ TIDAC [facility]; Protocol Last Admin: 05/13/18 06:14 Dose: 2 units Insulin Detemir (Levemir Vial) 6 units SQ DAILY@0700 [facility] Last Admin: 05/13/18 06:13 Dose: 4 units Insulin Detemir (Levemir Vial) 3 units SQ HS [facility] Last Admin: 05/12/18 22:23 Dose: Not Given Levothyroxine Sodium (Synthroid -) 25 mcg PO DAILY@0700 [facility] Last Admin: 05/13/18 06:09 Dose: 25 mcg Metoprolol Succinate (Toprol Xl -) 12.5 mg PO DAILY [facility] Last Admin: 05/13/18 10:42 Dose: 12.5 mg Pantoprazole Sodium (Protonix -) 20 mg PO DAILY [facility] Last Admin: 05/13/18 10:42 Dose: 20 mg Ramipril (Altace -) 2.5 mg PO DAILY [facility] Last Admin: 05/13/18 10:42 Dose: 2.5 mg Vancomycin HCl (Vancomycin Oral Solution) 125 mg PO Q6HPO [facility] Last Admin: 05/13/18 06:10 Dose: 125 mg - Objective Vital Signs: Vital Signs Temperature 97.9 F 05/13/18 06:10 Pulse Rate 77 07/11/18 06:10 Respiratory Rate 18 05/13/18 06:10 Blood Pressure 149/84 05/13/18 06:10 O2 Sat by Pulse Oximetry (%) 98 05/12/18 21:00 Constitutional: Yes: No Distress, Calm Cardiovascular: Yes: Regular Rate and Rhythm Respiratory: Yes: Diminished, Other (chest wall erythema decreased) Gastrointestinal: Yes: Normal Bowel Sounds, Soft. No: Tenderness Edema: No Labs: CBC, BMP 05/10/18 12:47 05/11/18 09:11 INR, PTT INR 0.89 (0.82-1.09) 05/07/18 13:08 Problem List - Problems (1) Cellulitis Code(s): L03.90 - CELLULITIS, UNSPECIFIED Qualifiers: Site of cellulitis: unspecified site Qualified Code(s): L03.90 - Cellulitis , unspecified (2) Diabetes Code(s): E11.9 - TYPE 2 DIABETES MELLITUS WITHOUT COMPLICATIONS (3) Pleural effusion Code(s): J90 - PLEURAL EFFUSION, NOT ELSEWHERE CLASSIFIED (4) Pneumonia Code(s): J18.9 - PNEUMONIA, UNSPECIFIED ORGANISM (5) Weakness generalized Code(s): R53.1 - WEAKNESS (6) Diabetes type 1, uncontrolled Code(s): E10.65 - TYPE 1 DIABETES MELLITUS WITH HYPERGLYCEMIA Qualifiers: Chronic kidney disease stage: stage 2 (mild) (7) Urinary tract infection Code(s): N39.0 - URINARY TRACT INFECTION, SITE NOT SPECIFIED Qualifiers: Urinary tract infection type: site unspecified Hematuria presence: without hematuria Qualified Code(s): N39.0 - Urinary tract infection, site not specified (8) Clostridium difficile diarrhea Code(s): A04.72 - ENTEROCOLITIS D/T CLOSTRIDIUM DIFFICILE, NOT SPCF RECUR Assessment/Plan PLAN oral vanco for cdiff iv antibiotics per ID nebs diabetic control GI eval noted for colonoscopy check labs s/p thoracentesis
[2018-05-13] MEDS ORDERED: PT OWN MED DRAWER 7, Y5N ONE (12:23)
[2018-05-13] MEDS: guaiFENesin/D-M SUGAR-FREE/ACLHOL-FREE 118 ML BOTTLE PO PRN (12:26)
--- NOTE | 2018-05-13 13:26 | PN ---
Progress Note, Physician History of Present Illness: pulmonary alert,feeling better,less dyspneic,less cough pleural fluid c/w transudate - Current Medication List Current Medications: Active Medications Acetaminophen (Tylenol -) 650 mg PO Q6HPO PRN PRN Reason: FEVER Last Admin: 05/12/18 22:24 Dose: 650 mg Amino Acids (Prosource No Carb Liquid Pkt) 30 ml PO BID@0800,1730 [facility] Last Admin: 05/13/18 08:43 Dose: 30 ml Enoxaparin Sodium (Lovenox -) 40 mg SQ DAILY [facility] Last Admin: 05/13/18 10:53 Dose: Not Given Guaifenesin (Diabetic Tussin Dm -) 5 ml PO Q4H PRN PRN Reason: COUGH Last Admin: 05/13/18 12:26 Dose: 5 ml Piperacillin Sod/Tazobactam (Sod 4.5 gm/ Dextrose) 100 mls @ 200 mls/hr IVPB Q8H-IV [facility]; Protocol Last Admin: 05/13/18 10:44 Dose: 200 mls/hr Insulin Aspart (Novolog Vial Sliding Scale -) 1 vial SQ TIDAC [facility]; Protocol Last Admin: 05/13/18 12:18 Dose: Not Given Insulin Detemir (Levemir Vial) 6 units SQ DAILY@0700 [facility] Last Admin: 05/13/18 06:13 Dose: 4 units Insulin Detemir (Levemir Vial) 3 units SQ HS [facility] Last Admin: 05/12/18 22:23 Dose: Not Given Levothyroxine Sodium (Synthroid -) 25 mcg PO DAILY@0700 [facility] Last Admin: 05/13/18 06:09 Dose: 25 mcg Metoprolol Succinate (Toprol Xl -) 12.5 mg PO DAILY [facility] Last Admin: 05/13/18 10:42 Dose: 12.5 mg Pantoprazole Sodium (Protonix -) 20 mg PO DAILY [facility] Last Admin: 05/13/18 10:42 Dose: 20 mg Ramipril (Altace -) 2.5 mg PO DAILY [facility] Last Admin: 05/13/18 10:42 Dose: 2.5 mg Vancomycin HCl (Vancomycin Oral Solution) 125 mg PO Q6HPO [facility] Last Admin: 05/13/18 12:19 Dose: 125 mg - Objective Vital Signs: Vital Signs Temperature 97.9 F 05/13/18 06:10 Pulse Rate 77 05/13/18 06:10 Respiratory Rate 18 05/13/18 06:10 Blood Pressure 149/84 05/13/18 06:10 O2 Sat by Pulse Oximetry (%) 98 05/12/18 21:00 Constitutional: Yes: Well Nourished, Calm Eyes: Yes: WNL HENT: Yes: WNL Neck: Yes: WNL Cardiovascular: Yes: Regular Rate and Rhythm, S1, S2 Respiratory: Yes: Diminished Gastrointestinal: Yes: Normal Bowel Sounds, Soft Extremities: Yes: WNL Edema: No Labs: CBC, BMP Assessment/Plan Problem List - Problems (1) Diabetes Code(s): E11.9 - TYPE 2 DIABETES MELLITUS WITHOUT COMPLICATIONS (2) Pleural effusion Code(s): J90 - PLEURAL EFFUSION, NOT ELSEWHERE CLASSIFIED TRANSUDATE (3) Pneumonia Code(s): J18.9 - PNEUMONIA, UNSPECIFIED ORGANISM (4) Cellulitis Code(s): L03.90 - CELLULITIS, UNSPECIFIED Qualifiers: Site of cellulitis: unspecified site Qualified Code(s): L03.90 - Cellulitis , unspecified (5) Urinary tract infection Code(s): N39.0 - URINARY TRACT INFECTION, SITE NOT SPECIFIED Qualifiers: Urinary tract infection type: site unspecified Hematuria presence: without hematuria Qualified Code(s): N39.0 - Urinary tract infection, site not specified (6) Weakness generalized Code(s): R53.1 - WEAKNESS (7) Anemia Code(s): D64.9 - ANEMIA, UNSPECIFIED (8) Fever Code(s): R50.9 - FEVER, UNSPECIFIED (9) Hypertension Code(s): I10 - ESSENTIAL (PRIMARY) HYPERTENSION (10) Hypothyroid Code(s): E03.9 - HYPOTHYROIDISM, UNSPECIFIED (11) Scleroderma Code(s): M34.9 - SYSTEMIC SCLEROSIS, UNSPECIFIED Assessment/Plan ABX Per ID check pleural fluid cytology O2 as needed Local wound care VTE prophylaxis wil Tian Problem List - Problems (1) Diabetes Code(s): E11.9 - TYPE 2 DIABETES MELLITUS WITHOUT COMPLICATIONS (2) Pleural effusion Code(s): J90 - PLEURAL EFFUSION, NOT ELSEWHERE CLASSIFIED (3) Pneumonia Code(s): J18.9 - PNEUMONIA, UNSPECIFIED ORGANISM (4) Cellulitis Code(s): L03.90 - CELLULITIS, UNSPECIFIED Qualifiers: Site of cellulitis: unspecified site Qualified Code(s): L03.90 - Cellulitis , unspecified (5) Urinary tract infection Code(s): N39.0 - URINARY TRACT INFECTION, SITE NOT SPECIFIED Qualifiers: Urinary tract infection type: site unspecified Hematuria presence: without hematuria Qualified Code(s): N39.0 - Urinary tract infection, site not specified (6) Weakness generalized Code(s): R53.1 - WEAKNESS (7) Anemia Code(s): D64.9 - ANEMIA, UNSPECIFIED (8) Fever Code(s): R50.9 - FEVER, UNSPECIFIED (9) Hypertension Code(s): I10 - ESSENTIAL (PRIMARY) HYPERTENSION (10) Hypothyroid Code(s): E03.9 - HYPOTHYROIDISM, UNSPECIFIED (11) Scleroderma Code(s): M34.9 - SYSTEMIC SCLEROSIS, UNSPECIFIED
--- NOTE | 2018-05-13 20:30 | PN ---
Progress Note (short form) - Note Progress Note: had thoracentesis yesterday Will need to be cleared frrom a cardiopulmonary standpoint prior to proceeding with EGD/Colonoscopy Problem List - Problems (1) Anemia Code(s): D64.9 - ANEMIA, UNSPECIFIED Qualifiers: Anemia type: unspecified type Qualified Code(s): D64.9 - Anemia, unspecified (2) Abnormal liver function tests Code(s): R94.5 - ABNORMAL RESULTS OF LIVER FUNCTION STUDIES (3) Diarrhea Code(s): R19.7 - DIARRHEA, UNSPECIFIED Qualifiers: Diarrhea type: unspecified type Qualified Code(s): R19.7 - Diarrhea, unspecified
[2018-05-13] MEDS ORDERED: INSULIN (LEVEMIR) 100 UNITS/ML UNITS SQ ONE (22:39)
[2018-05-14] MEDS ORDERED: PIPERACILLIN/TAZOBACTAM 4.5 GM VIAL IVPB ONE ×2 (01:56→10:12)
[2018-05-14] MEDS ORDERED: DEXTROSE 5%-WATER 100 ML IVPB ONE ×2 (01:57→10:12)
[2018-05-14] MEDS: PIPERACILLIN/TAZOB 4.5 GM 4.5 GM in DEXTROSE 5%-WATER 100 ML IVPB SCH ×2 (02:05→10:23)
[2018-05-14] MEDS: VANCOMYCIN 250 MG/5 ML ORAL SOLUTION PO SCH ×3 (06:09→17:45)
[2018-05-14] MEDS ORDERED: PT OWN MED DRAWER 7, Y5N ONE ×2 (06:43→08:02)
[2018-05-14] MEDS: INSULIN (LEVEMIR) 100 UNITS/ML UNITS SQ SCH ×2 (06:48→22:12)
[2018-05-14] MEDS: INSULIN SLIDING SCALE (NOVOLOG) 1 VIAL SQ SCH ×3 (06:48→17:31)
[2018-05-14] MEDS: LEVOTHYROXINE NA 25 MCG TABLET (FP) PO SCH (06:49)
[2018-05-14 07:36] LABS: EOS % 8.9 % (0-4.5); HEMOGLOBIN 10.8 GM/dL (10.7-15.3); LYMPH % 18.9 % (8-40); MCH 32.6 pg (25.7-33.7); MCHC 33.8 g/dl (32.0-36.0); MEAN CELL VOLUME 96.5 fl (80-96); MEAN PLT VOLUME 7.1 fl (7.5-11.1); MONO % 10.6 % (3.8-10.2); NEUT % 60.6 % (42.8-82.8); PLATELET COUNT 254 K/MM3 (134-434); RBC 3.31 M/mm3 (3.60-5.2); WHITE BLOOD COUNT 4.5 K/mm3 (4.0-10.0)
[2018-05-14 08:00] LABS: ALBUMIN 1.6 g/dl (3.4-5.0); ANION GAP 16 (8-16); BILIRUBIN,DIRECT 0.6 mg/dL (0.0-0.2); BLOOD UREA NITROGEN 31 mg/dL (7-18); CALCIUM 7.9 mg/dL (8.5-10.1); CHLORIDE 107 mmol/L (98-107); CO2 20 mmol/L (21-32); CREATININE 1.3 mg/dL (0.55-1.02); POTASSIUM 5.2 mmol/L (3.5-5.1); SGOT/AST 35 U/L (15-37); SGPT/ALT 18 U/L (12-78); SODIUM 143 mmol/L (136-145)
[2018-05-14 08:01] LABS: ALK PHOS 425 U/L (45-117)
[2018-05-14] MEDS ORDERED: INSULIN (LEVEMIR) 100 UNITS/ML UNITS SQ ONE (08:03)
[2018-05-14 08:49] LABS: GLUCOSE,RANDOM 307 mg/dL (74-106)
[2018-05-14] MEDS: AMINO ACIDS/PROTEIN HYDROLYS 30 ML LIQUID.PKT PO SCH ×2 (10:24→17:45)
[2018-05-14] MEDS: RAMIPRIL 2.5 MG CAPSULE (FP) PO SCH (10:24)
[2018-05-14] MEDS: PANTOPRAZOLE 20 MG TABLET (FP) PO SCH (10:24)
[2018-05-14] MEDS: metoPROLOL SUCCINATE 25 MG TAB.SR.24H (FP) PO SCH (10:24)
--- NOTE | 2018-05-14 11:39 | PN ---
GI Progress Note Subjective: No acute events No abdominal pain + Diarrhea - Objective Vital Signs: Vital Signs Temperature 98.5 F 05/14/18 07:00 Pulse Rate 75 05/14/18 07:00 Respiratory Rate 18 05/14/18 07:00 Blood Pressure 151/62 05/14/18 07:00 O2 Sat by Pulse Oximetry (%) 98 05/13/18 21:00 Constitutional: Calm Eyes: No: Sclera Icterus Respiratory: Yes: Diminished (at bases) Gastrointestinal Inspection: No: Distention ...Auscultate: Yes: Normoactive Bowel Sounds ...Palpate: No: Tenderness Labs: CBC, BMP 05/14/18 06:30 05/14/18 06:30 INR, PTT INR 0.89 (0.82-1.09) 05/07/18 13:08 Problem List - Problems (1) Anemia Assessment/Plan: Transfused No overt bleeding When cleared from medical standpoint, will proceed with EGD / colonoscopy Code(s): D64.9 - ANEMIA, UNSPECIFIED Qualifiers: Anemia type: unspecified type Qualified Code(s): D64.9 - Anemia, unspecified (2) Abnormal liver function tests Assessment/Plan: MRI failed to reveal any ductal dilation however the distal CBD was contracted elevated ALP seems to be chrionic in nature Can follow-up with EUS as outpatient to evaluate ampulla / distal CBD Code(s): R94.5 - ABNORMAL RESULTS OF LIVER FUNCTION STUDIES (3) Diarrhea Assessment/Plan: Likely mutifactorial On Abx D/C'd protonix in setting of possible CDAD Check stool c. diff toxin PCR Code(s): R19.7 - DIARRHEA, UNSPECIFIED Qualifiers: Diarrhea type: unspecified type Qualified Code(s): R19.7 - Diarrhea, unspecified
--- NOTE | 2018-05-14 11:40 | PN ---
Progress Note, Physician Chief Complaint: still has diarrhea- decreased frequency still has watery bm no nausea, abdominal pain no SOB no chest pain - Current Medication List Current Medications: Active Medications Acetaminophen (Tylenol -) 650 mg PO Q6HPO PRN PRN Reason: FEVER Last Admin: 05/12/18 22:24 Dose: 650 mg Amino Acids (Prosource No Carb Liquid Pkt) 30 ml PO BID@0800,1730 [facility] Last Admin: 05/14/18 10:24 Dose: 30 ml Enoxaparin Sodium (Lovenox -) 40 mg SQ DAILY [facility] Last Admin: 05/13/18 10:53 Dose: Not Given Guaifenesin (Diabetic Tussin Dm -) 5 ml PO Q4H PRN PRN Reason: COUGH Last Admin: 05/13/18 12:26 Dose: 5 ml Piperacillin Sod/Tazobactam (Sod 4.5 gm/ Dextrose) 100 mls @ 200 mls/hr IVPB Q8H-IV [facility]; Protocol Last Admin: 05/14/18 10:23 Dose: 200 mls/hr Insulin Aspart (Novolog Vial Sliding Scale -) 1 vial SQ TIDAC [facility]; Protocol Last Admin: 05/14/18 06:48 Dose: 5 units Insulin Detemir (Levemir Vial) 6 units SQ DAILY@0700 [facility] Last Admin: 05/14/18 06:48 Dose: 6 units Insulin Detemir (Levemir Vial) 3 units SQ HS [facility] Last Admin: 05/13/18 22:58 Dose: Not Given Levothyroxine Sodium (Synthroid -) 25 mcg PO DAILY@0700 [facility] Last Admin: 05/14/18 06:49 Dose: 25 mcg Metoprolol Succinate (Toprol Xl -) 12.5 mg PO DAILY [facility] Last Admin: 05/14/18 10:24 Dose: 12.5 mg Ramipril (Altace -) 2.5 mg PO DAILY [facility] Last Admin: 05/14/18 10:24 Dose: 2.5 mg Vancomycin HCl (Vancomycin Oral Solution) 125 mg PO Q6HPO [facility] Last Admin: 05/14/18 06:09 Dose: 125 mg - Objective Vital Signs: Vital Signs Temperature 98.5 F 05/14/18 07:00 Pulse Rate 75 05/14/18 07:00 Respiratory Rate 18 05/14/18 07:00 Blood Pressure 151/62 05/14/18 07:00 O2 Sat by Pulse Oximetry (%) 98 05/13/18 21:00 Constitutional: Yes: No Distress, Calm Cardiovascular: Yes: Regular Rate and Rhythm Respiratory: Yes: Diminished Gastrointestinal: Yes: Normal Bowel Sounds, Soft. No: Distention, Tenderness Edema: No Labs: CBC, BMP 05/14/18 06:30 05/14/18 06:30 INR, PTT INR 0.89 (0.82-1.09) 05/07/18 13:08 Problem List - Problems (1) Cellulitis Code(s): L03.90 - CELLULITIS, UNSPECIFIED Qualifiers: Site of cellulitis: unspecified site Qualified Code(s): L03.90 - Cellulitis , unspecified (2) Diabetes Code(s): E11.9 - TYPE 2 DIABETES MELLITUS WITHOUT COMPLICATIONS (3) Pleural effusion Code(s): J90 - PLEURAL EFFUSION, NOT ELSEWHERE CLASSIFIED (4) Pneumonia Code(s): J18.9 - PNEUMONIA, UNSPECIFIED ORGANISM (5) Weakness generalized Code(s): R53.1 - WEAKNESS (6) Diabetes type 1, uncontrolled Code(s): E10.65 - TYPE 1 DIABETES MELLITUS WITH HYPERGLYCEMIA Qualifiers: Chronic kidney disease stage: stage 2 (mild) (7) Urinary tract infection Code(s): N39.0 - URINARY TRACT INFECTION, SITE NOT SPECIFIED Qualifiers: Urinary tract infection type: site unspecified Hematuria presence: without hematuria Qualified Code(s): N39.0 - Urinary tract infection, site not specified (8) Clostridium difficile diarrhea Code(s): A04.72 - ENTEROCOLITIS D/T CLOSTRIDIUM DIFFICILE, NOT SPCF RECUR Assessment/Plan PLAN oral vanco for cdiff iv antibiotics per ID nebs diabetic control GI eval noted - pt needs cardiopulmonary clearance prior to GI interventions Echo ordered- EKG reviewed Cardiology consult Pulmonary follow up for colonoscopy check labs s/p thoracentesis repeat BMP - will need to check potassium
--- NOTE | 2018-05-14 11:54 | PN ---
Progress Note (short form) - Note Progress Note: Clinically appears overall better. Reports breathing feels better. Some dry cough. No pleuritic type pain. Intake & Output 05/11/18 05/12/18 05/13/18 05/14/18 23:59 23:59 23:59 23:59 Intake Total 366 404 4744 415 Balance 992 839 7295 415 Weight 154 lb Last Vital Signs Temp Pulse Resp BP Pulse Ox 98.5 F 75 18 151/62 98 05/14/18 07:00 05/14/18 07:00 05/14/18 07:00 05/14/18 07:00 05/13/18 21:00 Active Medications Acetaminophen (Tylenol -) 650 mg PO Q6HPO PRN PRN Reason: FEVER Last Admin: 05/12/18 22:24 Dose: 650 mg Amino Acids (Prosource No Carb Liquid Pkt) 30 ml PO BID@0800,1730 [facility] Last Admin: 05/14/18 10:24 Dose: 30 ml Enoxaparin Sodium (Lovenox -) 40 mg SQ DAILY [facility] Last Admin: 05/13/18 10:53 Dose: Not Given Guaifenesin (Diabetic Tussin Dm -) 5 ml PO Q4H PRN PRN Reason: COUGH Last Admin: 05/13/18 12:26 Dose: 5 ml Piperacillin Sod/Tazobactam (Sod 4.5 gm/ Dextrose) 100 mls @ 200 mls/hr IVPB Q8H-IV [facility]; Protocol Last Admin: 05/14/18 10:23 Dose: 200 mls/hr Insulin Aspart (Novolog Vial Sliding Scale -) 1 vial SQ TIDAC [facility]; Protocol Last Admin: 05/14/18 11:40 Dose: 2 units Insulin Detemir (Levemir Vial) 6 units SQ DAILY@0700 [facility] Last Admin: 05/14/18 06:48 Dose: 6 units Insulin Detemir (Levemir Vial) 3 units SQ HS [facility] Last Admin: 05/13/18 22:58 Dose: Not Given Levothyroxine Sodium (Synthroid -) 25 mcg PO DAILY@0700 [facility] Last Admin: 05/14/18 06:49 Dose: 25 mcg Metoprolol Succinate (Toprol Xl -) 12.5 mg PO DAILY [facility] Last Admin: 05/14/18 10:24 Dose: 12.5 mg Ramipril (Altace -) 2.5 mg PO DAILY [facility] Last Admin: 05/14/18 10:24 Dose: 2.5 mg Vancomycin HCl (Vancomycin Oral Solution) 125 mg PO Q6HPO [facility] Last Admin: 05/14/18 11:41 Dose: 125 mg Constitutional: Yes: No Distress Eyes: Yes: Conjunctiva Clear, EOM Intact HENT: Yes: Atraumatic, Normocephalic Neck: Yes: Supple, Trachea Midline Cardiovascular: Yes: Regular Rate and Rhythm Respiratory: Yes: Cough, On Nasal O2, Rhonchi. No: Accessory Muscle Use, Rales , Stridor, Tachypnea, Wheezes ...Inspection: Yes: Other (Erythema and scabbing LACW ) ...Clubbing: No Gastrointestinal: Yes: Normal Bowel Sounds, Soft Renal/: Yes: WNL Breast(s): Yes: Skin Changes, Other (Mastectomy ) Musculoskeletal: Yes: WNL Extremities: Yes: WNL Edema: No Peripheral Pulses WNL: Yes Integumentary: Yes: Erythema, Skin Tear Neurological: Yes: Alert, Oriented ...Motor Strength: WNL Psychiatric: Yes: WNL, Alert, Oriented Labs: Laboratory Results - last 24 hr 05/13/18 05/13/18 05/14/18 17:50 22:57 06:30 WBC RBC Hgb Hct MCV MCH MCHC RDW Plt Count MPV Absolute Neuts (auto) Neutrophils % Lymphocytes % Monocytes % Eosinophils % Basophils % Nucleated RBC % Sodium 143 Potassium 5.2 H Chloride 107 Carbon Dioxide 20 L Anion Gap 16 BUN 31 H Creatinine 1.3 H Creat Clearance w eGFR 43.01 POC Glucometer 238 105 Random Glucose 307 H* Calcium 7.9 L Total Bilirubin 1.0 Direct Bilirubin 0.6 H AST 35 ALT 18 Alkaline Phosphatase 425 H D Total Protein 5.0 L Albumin 1.6 L 05/14/18 05/14/18 06:30 06:45 WBC 4.5 RBC 3.31 L Hgb 10.8 Hct 32.0 L MCV 96.5 H MCH 32.6 MCHC 33.8 RDW 16.0 H Plt Count 254 MPV 7.1 L Absolute Neuts (auto) 2.7 Neutrophils % 60.6 Lymphocytes % 18.9 D Monocytes % 10.6 H Eosinophils % 8.9 H D Basophils % 1.0 Nucleated RBC % 0 Sodium Potassium Chloride Carbon Dioxide Anion Gap BUN Creatinine Creat Clearance w eGFR POC Glucometer 316 Random Glucose Calcium Total Bilirubin Direct Bilirubin AST ALT Alkaline Phosphatase Total Protein Albumin Problem List - Problems (1) Diabetes Code(s): E11.9 - TYPE 2 DIABETES MELLITUS WITHOUT COMPLICATIONS (2) Pleural effusion Code(s): J90 - PLEURAL EFFUSION, NOT ELSEWHERE CLASSIFIED (3) Pneumonia Code(s): J18.9 - PNEUMONIA, UNSPECIFIED ORGANISM (4) Cellulitis Code(s): L03.90 - CELLULITIS, UNSPECIFIED Qualifiers: Site of cellulitis: unspecified site Qualified Code(s): L03.90 - Cellulitis , unspecified (5) Urinary tract infection Code(s): N39.0 - URINARY TRACT INFECTION, SITE NOT SPECIFIED Qualifiers: Urinary tract infection type: site unspecified Hematuria presence: without hematuria Qualified Code(s): N39.0 - Urinary tract infection, site not specified (6) Weakness generalized Code(s): R53.1 - WEAKNESS (7) Anemia Code(s): D64.9 - ANEMIA, UNSPECIFIED (8) Fever Code(s): R50.9 - FEVER, UNSPECIFIED (9) Hypertension Code(s): I10 - ESSENTIAL (PRIMARY) HYPERTENSION (10) Hypothyroid Code(s): E03.9 - HYPOTHYROIDISM, UNSPECIFIED (11) Scleroderma Code(s): M34.9 - SYSTEMIC SCLEROSIS, UNSPECIFIED Assessment/Plan Follow final plueral fluid analysis ABX Per ID O2 as needed Local wound care VTE prophylaxis There is no Pulmonary contraindication for Endoscopic evaluation or Anesthesia Dr Villavicencio Problem List - Problems (1) Diabetes Code(s): E11.9 - TYPE 2 DIABETES MELLITUS WITHOUT COMPLICATIONS (2) Pleural effusion Code(s): J90 - PLEURAL EFFUSION, NOT ELSEWHERE CLASSIFIED (3) Pneumonia Code(s): J18.9 - PNEUMONIA, UNSPECIFIED ORGANISM (4) Cellulitis Code(s): L03.90 - CELLULITIS, UNSPECIFIED Qualifiers: Qualified Code(s): L03.90 - Cellulitis, unspecified (5) Urinary tract infection Code(s): N39.0 - URINARY TRACT INFECTION, SITE NOT SPECIFIED Qualifiers: Qualified Code(s): N39.0 - Urinary tract infection, site not specified (6) Weakness generalized Code(s): R53.1 - WEAKNESS (7) Anemia Code(s): D64.9 - ANEMIA, UNSPECIFIED (8) Fever Code(s): R50.9 - FEVER, UNSPECIFIED (9) Hypertension Code(s): I10 - ESSENTIAL (PRIMARY) HYPERTENSION (10) Hypothyroid Code(s): E03.9 - HYPOTHYROIDISM, UNSPECIFIED (11) Scleroderma Code(s): M34.9 - SYSTEMIC SCLEROSIS, UNSPECIFIED
--- NOTE | 2018-05-14 15:47 | ECHO ---
Name: BILL, CATHRYN A Exam:Adult Echocardiogram Study Date: 05/14/2018 01:43 PM Reason For Study: CHECK EF Height: 59 in Weight: 154 lb BSA: 1.7 m2 MMode/2D Measurements & Calculations IVSd: 0.94 cm Ao root diam: 2.4 cm LVIDd: 4.2 cm LA dimension: 3.7 cm LVIDs: 2.7 cm LVPWd: 0.77 cm EDV(Teich): 76.6 ml ESV(Teich): 27.8 ml Doppler Measurements & Calculations MV E max pradip: 88.8 cm/sec MR max pradip: 279.8 cm/sec MV A max pradip: 72.6 cm/sec MR max P.3 mmHg MV E/A: 1.2 MV dec time: 0.26 sec TR max pradip: 208.9 cm/sec Med Peak E' Pradip: 3.0 cm/sec TR max P.6 mmHg Med E/e': 29.2 Lat Peak E' Pradip: 9.7 cm/sec Lat E/e': 9.2 Procedure A complete two-dimensional transthoracic echocardiogram was performed (2D, M-mode, Doppler and color flow Doppler). The study was technically difficult with many images being suboptimal in quality. Left Ventricle The left ventricular size, thickness and function are normal. The left ventricular ejection fraction is normal. Ejection Fraction = 60-65%. Left Ventricular Filling pattern is normal for age. The left vent ricular wall motion is normal. Right Ventricle The right ventricle is normal in size and function. Atria Normal left and right atrial size and function. Mitral Valve There is no mitral regurgitation noted. Tricuspid Valve There is trace tricuspid regurgitation. There was insufficient TR detected to calculate RV systolic p ressure. Aortic Valve No hemodynamically significant valvular aortic stenosis. No aortic regurgitation is present. Pulmonic Valve The pulmonic valve is not well visualized. Great Vessels The aortic root is normal size. Pericardium/Pleura There is no pericardial effusion. Interpretation Summary The study was technically difficult. The left ventricular size, thickness and function are normal. The right ventricle is normal in size and function. There is trace tricuspid regurgitation. MD Melchor Wei 05/14/2018 03:47 PM
--- NOTE | 2018-05-14 16:00 | CON.CARD ---
Consult Consult Specialty:: cardiology Referred by:: Arnaldo Lund Reason for Consultation:: Preprocedure clearance - History of Present Illness Chief Complaint: Generalized weakness History of Present Illness: The patient is a 52-year-old female, with a history of diabetes, hypertension, hyperlipidemia, chronic kidney disease, nephrolithiasis, scleroderma, breast cancer, status post bilateral mastectomy, now admitted with generalized weakness , found to have significant anemia. The patient also underwent thoracentesis. She is currently quite comfortable. Denies chest pains and shortness of breath. GI workup for anemia is being planned. 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 breast cancer--2009. 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 s/p bilateral mastectomies/axillary lymphadenectomy. s/p RT to Lt. chestwall. s/p adjuvant chemotherapy - Past Surgical History Past Surgical History: Yes: Appendectomy, , Mastectomy (Bilateral) Additional Surgical History: Ureteral stent placement and lithotripsy secondary to nephrolithiasis - Alcohol/Substance Use Hx Alcohol Use: Yes (2-3 gin drinks per day, heavier in past) History of Substance Use: reports: None - Smoking History Smoking history: Never smoked Have you smoked in the past 12 months: No Aproximately how many cigarettes per day: 0 - Social History ADL: Family Assistance Occupation: Unemployed History of Recent Travel: No Home Medications - Allergies Allergies/Adverse Reactions: Allergies Allergy/AdvReac Type Severity Reaction Status Date / Time Sulfa (Sulfonamide Allergy Intermediate Hives Verified 11/30/17 13:10 Antibiotics) [Sulfa(Sulfonamide Antibiotics)] terbinafine HCl Allergy Intermediate Rash Verified 11/30/17 13:10 [From Lamisil] - Home Medications Home Medications: Ambulatory Orders Levothyroxine [Synthroid -] 25 mcg PO DAILY@0700 #30 tablet 06/20/14 Metoprolol Succinate [Toprol XL -] 12.5 mg PO DAILY 07/19/14 Insulin (Novolog) [Novolog Flexpen -] 5 units SQ HS 02/14/15 Mauri Cit/Mag/D3/Zn/Creasing [employer] Cutting [employer] Feeder/Atif/Bor [Citracal-Vit D + Magnesium Tab] 1 each PO DAILY 11/30/17 Multivitamin [One Daily] 1 each PO DAILY 11/30/17 Omeprazole 20 mg PO DAILY 11/30/17 Insulin (Levemir) [Levemir Vial] 4 units SQ HS ml 12/02/17 Insulin (Levemir) [Levemir Vial] 6 units SQ DAILY@0700 ml 12/02/17 Ramipril 2.5 mg PO DAILY 05/07/18 Family Disease History - Family Disease History Family Disease History: CA: Grandparent (paternal grandmother --colon ca// maternal grandmother --breast cancer), Father (colon cancer; had kidney stones) , Mother (; also was on dialysis; had no diabetes), Other: Sister (kidney stones younger sister, colon polyps) Review of Systems - Review of Systems Constitutional: reports: Lethargy, Loss of Appetite, Malaise Eyes: reports: No Symptoms HENT: reports: No Symptoms Neck: reports: No Symptoms Cardiovascular: reports: No Symptoms Respiratory: reports: No Symptoms Gastrointestinal: reports: No Symptoms Genitourinary: reports: No Symptoms Breasts: reports: Other (Bilateral mastectomy) Musculoskeletal: reports: No Symptoms Integumentary: reports: No Symptoms Neurological: reports: No Symptoms Endocrine: reports: No Symptoms Hematology/Lymphatic: reports: No Symptoms Psychiatric: reports: No Symptoms Vital Signs: Vital Signs Temperature 98.2 F 05/14/18 14:03 Pulse Rate 84 05/14/18 14:03 Respiratory Rate 22 05/14/18 14:03 Blood Pressure 119/71 05/14/18 14:03 O2 Sat by Pulse Oximetry (%) 98 05/13/18 21:00 Constitutional: Yes: Well Nourished, No Distress, Calm Eyes: Yes: WNL, Conjunctiva Clear, EOM Intact HENT: Yes: WNL, Atraumatic, Normocephalic Neck: Yes: WNL, Supple, Trachea Midline Respiratory: Yes: Other (Decreased breath sounds at bases bilaterally) Gastrointestinal: Yes: WNL, Normal Bowel Sounds, Soft Renal/: Yes: WNL Cardiovascular: Yes: WNL, Regular Rate and Rhythm JVD: No Carotid Bruit: No PMI: Non-Displaced Heart Sounds: Yes: S1, S2 Murmur: Yes: Systolic Murmur, Grade 2 Musculoskeletal: Yes: WNL Extremities: Yes: WNL Edema: No Peripheral Pulses: 2+ Left Carotid, 2+ Right Carotid, 2+ Left Femoral, 2+ Right Femoral, 2+ Left Popliteal, 2+ Right Popliteal, 2+ Left Doralis Pedis, 2+ Right Dorsalis Pedis Integumentary: Yes: WNL Neurological: Yes: WNL, Alert, Oriented Psychiatric: Yes: WNL - Other Data Labs, Other Data: CBC, BMP 05/14/18 06:30 INR, PTT INR 0.89 (0.82-1.09) 05/07/18 13:08 Assessment/Plan 53-year-old female, we've a history of diabetes, hypertension, hyperlipidemia, chronic kidney disease, nephrolithiasis, scleroderma, breast cancer, status post bilateral mastectomies, now presenting with generalized malaise and weakness, found to be anemic. GI workup is considered. There is no evidence of ischemia nor acute coronary syndrome. No chest pains. There is no need for further cardiac workup nor testing at this point. No need for cardiac monitoring. I believe that the patient is medically optimized for upper and or lower endoscopy Please proceed as planned. Do not hesitate to call us PRN
[2018-05-14 16:22] LABS: ANION GAP 10 (8-16); BLOOD UREA NITROGEN 32 mg/dL (7-18); CHLORIDE 103 mmol/L (98-107); CO2 24 mmol/L (21-32); CREATININE 1.4 mg/dL (0.55-1.02); POTASSIUM 4.4 mmol/L (3.5-5.1); SODIUM 137 mmol/L (136-145)
[2018-05-14 16:45] LABS: GLUCOSE,RANDOM 46 mg/dL (74-106)
--- NOTE | 2018-05-14 16:53 | PN ---
Progress Note (short form) - Note Progress Note: awake and alert still with watery diarrhea- starting to slow daown a bit no abdominal pain s/p thoracentesis- breathing improved Vital Signs Period Temp Pulse Resp BP Sys/Sibley Pulse Ox Last 24 Hr 98.0 F-98.5 F 70-84 17-22 119-151/62-71 98 cor-rrr lungs clear abd soft,nt ext no edema skn +psoriasis, no signs cellulitis, +breast wounds CBC, BMP 05/14/18 06:30 05/14/18 15:22 Microbiology 05/12/18 11:30 Pleural Fluid Gram Stain - Final 05/12/18 11:30 Pleural Fluid Body Fluid Culture - Final NO GROWTH OF AEROBIC ORGANISMS AFTER 48 HOURS INCUBATION 05/12/18 11:30 Pleural Fluid Anaerobic Culture - Final NO ANAEROBES WERE ISOLATED 05/09/18 10:35 Blood - Peripheral Venous Blood Culture - Final NO GROWTH AFTER 5 DAYS INCUBATION 05/09/18 10:50 Blood - Peripheral Venous Blood Culture - Final NO GROWTH AFTER 5 DAYS INCUBATION 05/12/18 11:30 Pleural Fluid AFB Smear Concentration - Final 05/12/18 11:30 Pleural Fluid Mycobacterial Culture - Preliminary 05/12/18 11:30 Pleural Fluid MANA Preparation - Preliminary 05/12/18 11:30 Pleural Fluid Fungal Culture - Preliminary 05/07/18 10:20 Blood - Peripheral Venous Blood Culture - Final NO GROWTH AFTER 5 DAYS INCUBATION 05/07/18 10:20 Blood - Peripheral Venous Blood Culture - Final NO GROWTH AFTER 5 DAYS INCUBATION 05/10/18 16:00 Stool Clostridium difficile Antigen (HERMAN) - Final 05/10/18 16:00 Stool Clostridium difficile Toxin Assay - Final 05/07/18 10:25 Urine - Urine Clean Catch Urine Culture - Final Klebsiella Pneumoniae Enterococcus Faecalis 05/07/18 10:30 Breast - Right Gram Stain - Final 05/07/18 10:30 Breast - Right Wound Culture - Final Mr S Aureus 05/07/18 10:30 Breast - Left Gram Stain - Final 05/07/18 10:30 Breast - Left Wound Culture - Final Mr S Aureus a/p Dr Latham's note reviewed will d/c zosyn cdiff antigen positive- started on po vancomycin day #3-not sure she has cdiff, pcr pending endoscopy planned when stble please call back if needed
[2018-05-14] MEDS ORDERED: DEXTROSE 50%-WATER - 25 GM/50 ML VIAL IVPUSH PRN (17:14)
[2018-05-14] MEDS ORDERED: DEXTROSE 50%-WATER - 25 GM/50 ML VIAL IVPUSH ONE (18:00)
[2018-05-15] MEDS: guaiFENesin/D-M SUGAR-FREE/ACLHOL-FREE 118 ML BOTTLE PO PRN (00:04)
[2018-05-15] MEDS ORDERED: INSULIN (NOVOLOG) ASPART 100 UNITS/ML 10ML VIAL ONE ×2 (06:04→12:10)
[2018-05-15] MEDS: INSULIN (LEVEMIR) 100 UNITS/ML UNITS SQ SCH ×2 (06:33→22:02)
[2018-05-15] MEDS: LEVOTHYROXINE NA 25 MCG TABLET (FP) PO SCH (06:33)
[2018-05-15] MEDS: VANCOMYCIN 250 MG/5 ML ORAL SOLUTION PO SCH ×5 (06:33→23:00)
[2018-05-15] MEDS: INSULIN SLIDING SCALE (NOVOLOG) 1 VIAL SQ SCH ×3 (06:34→17:30)
[2018-05-15 08:07] LABS: ANION GAP 11 (8-16); BLOOD UREA NITROGEN 35 mg/dL (7-18); CHLORIDE 103 mmol/L (98-107); CO2 22 mmol/L (21-32); CREATININE 1.4 mg/dL (0.55-1.02); SODIUM 136 mmol/L (136-145)
[2018-05-15 08:24] LABS: GLUCOSE,RANDOM 334 mg/dL (74-106)
[2018-05-15] MEDS: metoPROLOL SUCCINATE 25 MG TAB.SR.24H (FP) PO SCH (10:27)
[2018-05-15] MEDS: AMINO ACIDS/PROTEIN HYDROLYS 30 ML LIQUID.PKT PO SCH ×2 (10:28→17:31)
[2018-05-15] MEDS: RAMIPRIL 2.5 MG CAPSULE (FP) PO SCH (10:28)
--- NOTE | 2018-05-15 11:30 | PN ---
Progress Note (short form) - Note Progress Note: patient seen and examined. Comfortable. Chart reviewed. She is better. Denies chest pain. Breathing is okay. Complains of mild diarrhea. Denies abdominal pain Vital Signs Temp 97.9 F 05/15/18 06:20 Pulse 77 05/15/18 06:20 Resp 18 05/15/18 06:20 BP 144/77 05/15/18 06:20 Pulse Ox 97 05/14/18 21:00 Intake & Output 05/14/18 05/14/18 05/15/18 11:59 23:59 11:59 Intake Total 415 620 265 Output Total 1 Balance 415 619 265 Intake: IVPB 100 Oral 315 620 265 Output: Urine 1 Void 1 Other: Voiding Method Diaper Incontinent Toilet # Unmeasured Voids Void 1 1 Bowel Movement Yes: Loose Yes Yes: Loose # Bowel Movements 1 1 1 Active Medications Acetaminophen (Tylenol -) 650 mg PO Q6HPO PRN PRN Reason: FEVER Last Admin: 05/12/18 22:24 Dose: 650 mg Amino Acids (Prosource No Carb Liquid Pkt) 30 ml PO BID@0800,1730 [facility] Last Admin: 05/15/18 10:28 Dose: 30 ml Dextrose (D50w (Vial) -) 25 gm IVPUSH PRN PRN PRN Reason: low sugar Enoxaparin Sodium (Lovenox -) 40 mg SQ DAILY [facility] Last Admin: 05/13/18 10:53 Dose: Not Given Guaifenesin (Diabetic Tussin Dm -) 5 ml PO Q4H PRN PRN Reason: COUGH Last Admin: 05/15/18 00:04 Dose: 5 ml Insulin Aspart (Novolog Vial Sliding Scale -) [facility] Protocol Last Admin: 05/15/18 06:34 Dose: 5 units Insulin Detemir (Levemir Vial) 6 units SQ DAILY@0700 [facility] Last Admin: 05/15/18 06:33 Dose: 5 units Insulin Detemir (Levemir Vial) 3 units SQ HS [facility] Last Admin: 05/14/18 22:12 Dose: Not Given Levothyroxine Sodium (Synthroid -) 25 mcg PO DAILY@0700 [facility] Last Admin: 05/15/18 06:33 Dose: 25 mcg Metoprolol Succinate (Toprol Xl -) 12.5 mg PO DAILY [facility] Last Admin: 05/15/18 10:27 Dose: 12.5 mg Ramipril (Altace -) 2.5 mg PO DAILY [facility] Last Admin: 05/15/18 10:28 Dose: 2.5 mg Vancomycin HCl (Vancomycin Oral Solution) 125 mg PO Q6HPO [facility] Last Admin: 05/15/18 06:33 Dose: 125 mg CBC, BMP 05/14/18 06:30 05/15/18 06:50 Microbiology 05/15/18 10:45 Clostridium difficile (PCR) - Preliminary Stool 05/12/18 11:30 Gram Stain - Final Pleural Fluid Body Fluid Culture - Final NO GROWTH OF AEROBIC ORGANISMS AFTER 48 HOURS INCUBATION Anaerobic Culture - Final NO ANAEROBES WERE ISOLATED 05/09/18 10:35 Blood Culture - Final Blood - Peripheral Venous NO GROWTH AFTER 5 DAYS INCUBATION 05/09/18 10:50 Blood Culture - Final Blood - Peripheral Venous NO GROWTH AFTER 5 DAYS INCUBATION 05/12/18 11:30 AFB Smear Concentration - Final Pleural Fluid Mycobacterial Culture - Preliminary physical exam Constitutional: Yes: No Distress, Calm. comfortable Cardiovascular: Yes: Regular Rate and Rhythm Respiratory: Yes: Diminished Gastrointestinal: Yes: Normal Bowel Sounds, Soft. No: Distention, Tenderness Edema: No chronic skin changes--- due to psoriosis Assessment/Plan clinically stable oral vanco for cdiff ZOSYN discontinued nebs diabetic control---brittle We will consult Endo discussed with GI--- to be scheduled for procedure next week Cartilage evaluation noted----cleared for proposed procedure continue present care We will follow Problem List - Problems (1) Anemia Code(s): D64.9 - ANEMIA, UNSPECIFIED (2) Weakness generalized Code(s): R53.1 - WEAKNESS (3) Cellulitis Code(s): L03.90 - CELLULITIS, UNSPECIFIED Qualifiers: Site of cellulitis: unspecified site Qualified Code(s): L03.90 - Cellulitis , unspecified (4) Urinary tract infection Code(s): N39.0 - URINARY TRACT INFECTION, SITE NOT SPECIFIED Qualifiers: Urinary tract infection type: site unspecified Hematuria presence: without hematuria Qualified Code(s): N39.0 - Urinary tract infection, site not specified (5) Diabetes type 1, uncontrolled Code(s): E10.65 - TYPE 1 DIABETES MELLITUS WITH HYPERGLYCEMIA Qualifiers: Chronic kidney disease stage: stage 2 (mild) (6) Hypoglycemia due to insulin Code(s): E16.0 - DRUG-INDUCED HYPOGLYCEMIA WITHOUT COMA; T38.3X5A - ADVERSE EFFECT OF INSULIN AND ORAL HYPOGLYCEMIC DRUGS, INIT (7) Cough due to JUN inhibitor Code(s): R05 - COUGH; T46.4X5A - ADVERSE EFFECT OF [id number] INHIBITORS, INIT
--- NOTE | 2018-05-15 14:33 | PN ---
Progress Note (short form) - Note Progress Note: PULMONARY Chart reviewed Constitutional: Yes: Well Nourished, Calm Eyes: Yes: WNL HENT: Yes: WNL Neck: Yes: WNL Cardiovascular: Yes: Regular Rate and Rhythm, S1, S2 Respiratory: Yes: Diminished Gastrointestinal: Yes: Normal Bowel Sounds, Soft Extremities: Yes: WNL Edema: No Labs: labs/meds/notes/images/micro noted - Problems (1) Diabetes Code(s): E11.9 - TYPE 2 DIABETES MELLITUS WITHOUT COMPLICATIONS (2) Pleural effusion Code(s): J90 - PLEURAL EFFUSION, NOT ELSEWHERE CLASSIFIED TRANSUDATE (3) Pneumonia Code(s): J18.9 - PNEUMONIA, UNSPECIFIED ORGANISM (4) Cellulitis Code(s): L03.90 - CELLULITIS, UNSPECIFIED Qualifiers: Site of cellulitis: unspecified site Qualified Code(s): L03.90 - Cellulitis , unspecified (5) Urinary tract infection Code(s): N39.0 - URINARY TRACT INFECTION, SITE NOT SPECIFIED Qualifiers: Urinary tract infection type: site unspecified Hematuria presence: without hematuria Qualified Code(s): N39.0 - Urinary tract infection, site not specified (6) Weakness generalized Code(s): R53.1 - WEAKNESS (7) Anemia Code(s): D64.9 - ANEMIA, UNSPECIFIED (8) Fever Code(s): R50.9 - FEVER, UNSPECIFIED (9) Hypertension Code(s): I10 - ESSENTIAL (PRIMARY) HYPERTENSION (10) Hypothyroid Code(s): E03.9 - HYPOTHYROIDISM, UNSPECIFIED (11) Scleroderma Code(s): M34.9 - SYSTEMIC SCLEROSIS, UNSPECIFIED Assessment/Plan ABX Per ID check pleural fluid cytology still pending O2 as needed Local wound care VTE prophylaxis wil ENGLAND MD
--- NOTE | 2018-05-15 18:13 | PN ---
Progress Note (short form) - Note Progress Note: Patient seen and examined Complains of some diarrhea. Breathing improved Pruritic eash - consider derm Last Vital Signs Temp Pulse Resp BP Pulse Ox 98.0 F 99 H 22 139/74 97 05/15/18 14:11 05/15/18 14:11 05/15/18 14:11 05/15/18 14:11 05/15/18 09:00 HEENT: NADINE, EOM Intact Oropharynx: No thrush, No mucositis Neck: Supple Nodes: Without adenopathy Breasts:chest wass scar surgical sites with breakdown Cor: RSR, No murmurs, No gallops Lungs: Clear to P&A Abd: Soft, Normal bowel sounds, No organomegaly Ext:No significant edema Skin: macular erythematous rash back, buttock CBC, BMP 05/14/18 06:30 05/15/18 06:50 Current Medications Generic Name Dose Route Start Last Admin Trade Name Freq PRN Reason Stop Dose Admin Acetaminophen 650 mg 05/09/18 10:15 05/12/18 22:24 Tylenol - PO 650 mg Q6HPO PRN Administration FEVER Amino Acids 30 ml 05/10/18 08:00 05/15/18 17:31 Prosource No Carb Liquid Pkt PO 30 ml BID@0800,1730 [facility] Administration Dextrose 25 gm 05/14/18 17:14 D50w (Vial) - IVPUSH PRN PRN low sugar Enoxaparin Sodium 40 mg 05/09/18 10:00 05/13/18 10:53 Lovenox - SQ Not Given DAILY [facility] Guaifenesin 5 ml 05/08/18 20:57 05/15/18 00:04 Diabetic Tussin Dm - PO 5 ml Q4H PRN Administration COUGH Insulin Aspart 1 vial 05/07/18 16:30 05/15/18 17:30 Novolog Vial Sliding Scale - SQ Not Given TIDAC [facility] Protocol Insulin Detemir 6 units 05/08/18 07:00 05/15/18 06:33 Levemir Vial SQ 5 units DAILY@0700 [facility] Administration Insulin Detemir 3 units 05/08/18 22:00 05/14/18 22:12 Levemir Vial SQ Not Given HS [facility] Levothyroxine Sodium 25 mcg 05/08/18 07:00 05/15/18 06:33 Synthroid - PO 25 mcg DAILY@0700 [facility] Administration Metoprolol Succinate 12.5 mg 05/08/18 10:00 05/15/18 10:27 Toprol Xl - PO 12.5 mg DAILY [facility] Administration Ramipril 2.5 mg 05/08/18 10:00 05/15/18 10:28 Altace - PO 2.5 mg DAILY [facility] Administration Vancomycin HCl 125 mg 05/11/18 12:00 05/15/18 17:31 Vancomycin Oral Solution PO 125 mg Q6HPO [facility] Administration Problem List - Problems (1) Abnormal liver function tests Assessment/Plan: Patient has been a closet drinker for years and continues to drink Code(s): R94.5 - ABNORMAL RESULTS OF LIVER FUNCTION STUDIES (2) Anemia Assessment/Plan: B-12 elevated, TSH elevated- mild hypothyroidism, folate normal Fe++ studies++ compatible with chronic disease. Code(s): D64.9 - ANEMIA, UNSPECIFIED Qualifiers: Anemia type: unspecified type Qualified Code(s): D64.9 - Anemia, unspecified (3) Cellulitis Code(s): L03.90 - CELLULITIS, UNSPECIFIED Qualifiers: Site of cellulitis: unspecified site Qualified Code(s): L03.90 - Cellulitis , unspecified (4) Clostridium difficile diarrhea Assessment/Plan: Being evaluated by ID - On p.o. pete Code(s): A04.72 - ENTEROCOLITIS D/T CLOSTRIDIUM DIFFICILE, NOT SPCF RECUR (5) Pleural effusion Assessment/Plan: s/p thoracentesis- awaiting final studies Code(s): J90 - PLEURAL EFFUSION, NOT ELSEWHERE CLASSIFIED (6) Fever Code(s): R50.9 - FEVER, UNSPECIFIED (7) Scleroderma Code(s): M34.9 - SYSTEMIC SCLEROSIS, UNSPECIFIED
--- NOTE | 2018-05-15 19:20 | PN ---
GI Progress Note Subjective: Loose BM today No abdominal pain Cleared by cardiology for procedures - Objective Vital Signs: Vital Signs Temperature 98.3 F 05/15/18 18:00 Pulse Rate 76 05/15/18 18:00 Respiratory Rate 20 05/15/18 18:00 Blood Pressure 142/74 05/15/18 18:00 O2 Sat by Pulse Oximetry (%) 97 05/15/18 09:00 Constitutional: Calm Eyes: No: Sclera Icterus Cardiovascular: Yes: Regular Rate and Rhythm Respiratory: Yes: Diminished (at bases b/l) Gastrointestinal Inspection: No: Distention ...Auscultate: Yes: Normoactive Bowel Sounds ...Palpate: No: Tenderness Neurological: Yes: Alert, Oriented Labs: CBC, BMP 05/14/18 06:30 05/15/18 06:50 INR, PTT INR 0.89 (0.82-1.09) 05/07/18 13:08 Hepatic Panel Total Bilirubin 1.0 mg/dL (0.2-1.0) 05/14/18 06:30 Direct Bilirubin 0.6 mg/dL (0.0-0.2) H 05/14/18 06:30 AST 35 U/L (15-37) 05/14/18 06:30 ALT 18 U/L (12-78) 05/14/18 06:30 Alkaline Phosphatase 425 U/L (45-117) H D 05/14/18 06:30 Albumin 1.6 g/dl (3.4-5.0) L 05/14/18 06:30 Problem List - Problems (1) Anemia Assessment/Plan: Improved s/p PRBC transfusion Will plan foe EGD and Colonoscopy for further evaluation and exclude alternate etiology of her diarrhea Code(s): D64.9 - ANEMIA, UNSPECIFIED Qualifiers: Anemia type: unspecified type Qualified Code(s): D64.9 - Anemia, unspecified (2) Abnormal liver function tests Assessment/Plan: Improving Code(s): R94.5 - ABNORMAL RESULTS OF LIVER FUNCTION STUDIES
[2018-05-16] MEDS: guaiFENesin/D-M SUGAR-FREE/ACLHOL-FREE 118 ML BOTTLE PO PRN (03:40)
[2018-05-16] MEDS: INSULIN SLIDING SCALE (NOVOLOG) 1 VIAL SQ SCH ×3 (07:01→17:29)
[2018-05-16] MEDS: INSULIN (LEVEMIR) 100 UNITS/ML UNITS SQ SCH ×2 (07:01→22:11)
[2018-05-16] MEDS: VANCOMYCIN 250 MG/5 ML ORAL SOLUTION PO SCH ×3 (07:03→17:29)
[2018-05-16] MEDS: LEVOTHYROXINE NA 25 MCG TABLET (FP) PO SCH (07:03)
[2018-05-16] MEDS: AMINO ACIDS/PROTEIN HYDROLYS 30 ML LIQUID.PKT PO SCH ×2 (08:16→17:29)
[2018-05-16] MEDS: RAMIPRIL 2.5 MG CAPSULE (FP) PO SCH (10:17)
[2018-05-16] MEDS: ENOXAPARIN NA (PORCINE) 40 MG/0.4 ML DISP.SYRIN SQ SCH (10:17)
[2018-05-16] MEDS: metoPROLOL SUCCINATE 25 MG TAB.SR.24H (FP) PO SCH (10:17)
--- NOTE | 2018-05-16 12:17 | PN ---
Progress Note (short form) - Note Progress Note: patient seen and examined. Comfortable. feels better. Diarrhea improved. Afebrile Chart reviewed. Denies abdominal pain. itching present blood sugar fluctuating--Patient refuses some insulin doses Vital Signs Temp 97.9 F 05/16/18 07:02 Pulse 87 05/16/18 07:02 Resp 20 05/16/18 07:02 BP 153/67 05/16/18 07:02 Pulse Ox 97 05/15/18 21:00 Intake & Output 05/15/18 05/16/18 05/16/18 23:59 11:59 23:59 Intake Total 600 200 Balance 600 200 Intake: Oral 600 200 Other: Voiding Method Incontinent Incontinent # Unmeasured Voids Void 1 1 Bowel Movement Yes Yes: Loose # Bowel Movements 1 2 Active Medications Acetaminophen (Tylenol -) 650 mg PO Q6HPO PRN PRN Reason: FEVER Last Admin: 05/12/18 22:24 Dose: 650 mg Amino Acids (Prosource No Carb Liquid Pkt) 30 ml PO BID@0800,1730 [facility] Last Admin: 05/16/18 08:16 Dose: 30 ml Bisacodyl (Dulcolax -) 20 mg PO ONCE ONE Stop: 05/17/18 13:01 Dextrose (D50w (Vial) -) 25 gm IVPUSH PRN PRN PRN Reason: low sugar Enoxaparin Sodium (Lovenox -) 40 mg SQ DAILY [facility] Last Admin: 05/16/18 10:17 Dose: 40 mg Guaifenesin (Diabetic Tussin Dm -) 5 ml PO Q4H PRN PRN Reason: COUGH Last Admin: 05/16/18 03:40 Dose: 5 ml Insulin Aspart (Novolog Vial Sliding Scale -) 1 vial SQ TIDAC [facility]; Protocol Last Admin: 05/16/18 07:01 Dose: 4 units Insulin Detemir (Levemir Vial) 6 units SQ DAILY@0700 [facility] Last Admin: 05/16/18 07:01 Dose: 5 units Insulin Detemir (Levemir Vial) 3 units SQ HS [facility] Last Admin: 05/15/18 22:02 Dose: 3 units Levothyroxine Sodium (Synthroid -) 25 mcg PO DAILY@0700 [facility] Last Admin: 05/16/18 07:03 Dose: 25 mcg Metoprolol Succinate (Toprol Xl -) 12.5 mg PO DAILY [facility] Last Admin: 05/16/18 10:17 Dose: 12.5 mg Polyethylene Glycol (Miralax (For Bowel Prep) -) 255 gm PO ONCE ONE Stop: 05/17/18 15:01 Ramipril (Altace -) 2.5 mg PO DAILY [facility] Last Admin: 05/16/18 10:17 Dose: 2.5 mg Vancomycin HCl (Vancomycin Oral Solution) 125 mg PO Q6HPO [facility] Last Admin: 05/16/18 07:03 Dose: 125 mg CBC, BMP 05/14/18 06:30 05/15/18 06:50 Microbiology 05/15/18 10:45 Clostridium difficile (PCR) - Preliminary Stool Pleural cytology - pending. physical exam Constitutional: Yes: No Distress, Calm. comfortable Cardiovascular: Yes: Regular Rate and Rhythm Respiratory: Yes: Diminished at bases Gastrointestinal: Yes: Normal Bowel Sounds, Soft. No: Distention, Tenderness Edema: No chronic skin changes--- due to psoriosis Assessment/Plan clinically stable oral vanco for cdiff ZOSYN discontinued nebs diabetic control---brittle Endo consult pending . discussed with GI--- to be scheduled for procedure next week Cardiology evaluation ---cleared for proposed procedure continue present care We will follow daily oob - chair Problem List - Problems (1) Anemia Code(s): D64.9 - ANEMIA, UNSPECIFIED (2) Weakness generalized Code(s): R53.1 - WEAKNESS (3) Cellulitis Code(s): L03.90 - CELLULITIS, UNSPECIFIED Qualifiers: Site of cellulitis: unspecified site Qualified Code(s): L03.90 - Cellulitis , unspecified (4) Urinary tract infection Code(s): N39.0 - URINARY TRACT INFECTION, SITE NOT SPECIFIED Qualifiers: Urinary tract infection type: site unspecified Hematuria presence: without hematuria Qualified Code(s): N39.0 - Urinary tract infection, site not specified (5) Diabetes type 1, uncontrolled Code(s): E10.65 - TYPE 1 DIABETES MELLITUS WITH HYPERGLYCEMIA Qualifiers: Chronic kidney disease stage: stage 2 (mild) (6) Hypoglycemia due to insulin Code(s): E16.0 - DRUG-INDUCED HYPOGLYCEMIA WITHOUT COMA; T38.3X5A - ADVERSE EFFECT OF INSULIN AND ORAL HYPOGLYCEMIC DRUGS, INIT (7) Cough due to JUN inhibitor Code(s): R05 - COUGH; T46.4X5A - ADVERSE EFFECT OF [id number] INHIBITORS, INIT
--- NOTE | 2018-05-16 13:38 | CONSULT ---
Consult Consult Specialty:: Endocrinology Referred by:: Dr Oswald Reason for Consultation:: Fluctuating blood sugar - History of Present Illness Chief Complaint: Weakness History of Present Illness: This is a 52 yo female with h/o CKD stage III, T1DM since childhood, diabetic nephropathy, nephrolithiasis, HTN, HLD, Breast CA s/p nanda mastectomy, scleroderma, and psoriasis who presented for evaluation of 4-5 day history of generalized weakness. She further describeed chest itchiness she attributes to her psoriasis and relates that she has been scratching at it. Pt found to have C diff diarrhoea in the hospital. Pt referred for management of blood sugar. She takes Levemir 4 to 5 units in the morning and 3 to 4 units in the evening with Novolog 2 to 5 units TID with meals. FS at home usually 200s. Has intermittent hypoglycemia with lowest 20 at home few weeks ago. Was hospitalized with hypoglycemia in November this year. Denies any visual symptoms. Has paresthesia of feet off and on. Usually drinks Ensure or Glucerna to raise her blood sugar. 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 breast cancer--2009. 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 s/p bilateral mastectomies/axillary lymphadenectomy. s/p RT to Lt. chestwall. s/p adjuvant chemotherapy - Past Surgical History Past Surgical History: Yes: Appendectomy, , Mastectomy (Bilateral) Additional Surgical History: Ureteral stent placement and lithotripsy secondary to nephrolithiasis - Alcohol/Substance Use Hx Alcohol Use: Yes (2-3 gin drinks per day, heavier in past) History of Substance Use: reports: None - Smoking History Smoking history: Never smoked Have you smoked in the past 12 months: No Aproximately how many cigarettes per day: 0 - Social History ADL: Family Assistance Occupation: Unemployed History of Recent Travel: No Home Medications - Allergies Allergies/Adverse Reactions: Allergies Allergy/AdvReac Type Severity Reaction Status Date / Time Sulfa (Sulfonamide Allergy Intermediate Hives Verified 11/30/17 13:10 Antibiotics) [Sulfa(Sulfonamide Antibiotics)] terbinafine HCl Allergy Intermediate Rash Verified 11/30/17 13:10 [From Lamisil] - Home Medications Home Medications: Ambulatory Orders Levothyroxine [Synthroid -] 25 mcg PO DAILY@0700 #30 tablet 06/20/14 Metoprolol Succinate [Toprol XL -] 12.5 mg PO DAILY 07/19/14 Insulin (Novolog) [Novolog Flexpen -] 5 units SQ HS 02/14/15 Mauri Cit/Mag/D3/Zn/Restaurant Associate/Atif/Bor [Citracal-Vit D + Magnesium Tab] 1 each PO DAILY 11/30/17 Multivitamin [One Daily] 1 each PO DAILY 11/30/17 Omeprazole 20 mg PO DAILY 11/30/17 Insulin (Levemir) [Levemir Vial] 4 units SQ HS ml 12/02/17 Insulin (Levemir) [Levemir Vial] 6 units SQ DAILY@0700 ml 12/02/17 Ramipril 2.5 mg PO DAILY 05/07/18 Family Disease History - Family Disease History Family Disease History: CA: Grandparent (paternal grandmother --colon ca// maternal grandmother --breast cancer), Father (colon cancer; had kidney stones) , Mother (; also was on dialysis; had no diabetes), Other: Sister (kidney stones younger sister, colon polyps) Review of Systems - Review of Systems Constitutional: reports: No Symptoms Eyes: reports: No Symptoms HENT: reports: No Symptoms Neck: reports: No Symptoms Cardiovascular: reports: No Symptoms Respiratory: reports: No Symptoms Gastrointestinal: reports: Diarrhea Genitourinary: reports: No Symptoms Breasts: reports: Other (wound/ulcer over the breast area.) Musculoskeletal: reports: No Symptoms Integumentary: reports: No Symptoms Neurological: reports: No Symptoms Endocrine: reports: No Symptoms Psychiatric: reports: No Symptoms Physical Exam Vital Signs: Vital Signs Temperature 97.9 F 05/16/18 07:02 Pulse Rate 87 05/16/18 07:02 Respiratory Rate 20 05/16/18 07:02 Blood Pressure 153/67 05/16/18 07:02 O2 Sat by Pulse Oximetry (%) 97 05/15/18 21:00 Constitutional: Yes: No Distress, Calm Eyes: Yes: Conjunctiva Clear, EOM Intact HENT: Yes: Atraumatic, Normocephalic Neck: Yes: Supple, Trachea Midline Cardiovascular: Yes: Regular Rate and Rhythm Respiratory: Yes: Regular, CTA Bilaterally Gastrointestinal: Yes: Normal Bowel Sounds, Soft Breast(s): Yes: Other (linear ulcer over breast area.) Musculoskeletal: Yes: WNL Extremities: Yes: WNL Edema: No Neurological: Yes: Alert, Oriented Labs: CBC, BMP 05/14/18 06:30 05/15/18 06:50 Imaging - Results Chest X-ray: Report Reviewed Assessment/Plan AP; T1DM: Brittle HTN Diarrhoea C Diff positive Psoariasis Fluctuating blood sugar Hypoglycemia at different times of the day. Pt says she has been eating regularly and doesn't skip meals Discussed not to drink Glucerna or Ensure unless the blood sugar is low High blood sugar in the morning probably because she has been refusing Levemir at night. Discussed need to take it as prescribed Change Novolog coverage. Levemir 6 units in AM and 2 units at HS Will F/U
[2018-05-16] MEDS ORDERED: INSULIN SLIDING SCALE (NOVOLOG) 1 VIAL SQ SCH (13:58)
[2018-05-16] MEDS: ACETAMINOPHEN 325 MG TABLET (FP) PO PRN (18:36)
[2018-05-16] MEDS ORDERED: INSULIN (LEVEMIR) 100 UNITS/ML UNITS SQ ONE (21:01)
[2018-05-16] MEDS ORDERED: PT OWN MED DRAWER 7, Y5N ONE (21:57)
[2018-05-17] MEDS: VANCOMYCIN 250 MG/5 ML ORAL SOLUTION PO SCH ×5 (00:45→23:55)
[2018-05-17] MEDS: INSULIN SLIDING SCALE (NOVOLOG) 1 VIAL SQ SCH ×3 (06:33→17:53)
[2018-05-17] MEDS: INSULIN (LEVEMIR) 100 UNITS/ML UNITS SQ SCH ×2 (06:33→21:54)
[2018-05-17] MEDS: LEVOTHYROXINE NA 25 MCG TABLET (FP) PO SCH (06:34)
[2018-05-17] MEDS ORDERED: INSULIN (LEVEMIR) 100 UNITS/ML UNITS SQ ONE ×2 (07:14→21:23)
[2018-05-17] MEDS: AMINO ACIDS/PROTEIN HYDROLYS 30 ML LIQUID.PKT PO SCH ×2 (08:36→17:58)
--- NOTE | 2018-05-17 09:14 | PN ---
Progress Note (short form) - Note Progress Note: PULMONARY Chart reviewed Complaining of diffuse pruritis Constitutional: Yes: Well Nourished, Calm Eyes: Yes: WNL HENT: Yes: WNL Neck: Yes: WNL Cardiovascular: Yes: Regular Rate and Rhythm, S1, S2 Respiratory: Yes: Diminished Gastrointestinal: Yes: Normal Bowel Sounds, Soft Extremities: Yes: WNL Edema: No Labs: labs/meds/notes/images/micro noted - Problems (1) Diabetes Code(s): E11.9 - TYPE 2 DIABETES MELLITUS WITHOUT COMPLICATIONS (2) Pleural effusion Code(s): J90 - PLEURAL EFFUSION, NOT ELSEWHERE CLASSIFIED TRANSUDATE (3) Pneumonia Code(s): J18.9 - PNEUMONIA, UNSPECIFIED ORGANISM (4) Cellulitis Code(s): L03.90 - CELLULITIS, UNSPECIFIED Qualifiers: Site of cellulitis: unspecified site Qualified Code(s): L03.90 - Cellulitis , unspecified (5) Urinary tract infection Code(s): N39.0 - URINARY TRACT INFECTION, SITE NOT SPECIFIED Qualifiers: Urinary tract infection type: site unspecified Hematuria presence: without hematuria Qualified Code(s): N39.0 - Urinary tract infection, site not specified (6) Weakness generalized Code(s): R53.1 - WEAKNESS (7) Anemia Code(s): D64.9 - ANEMIA, UNSPECIFIED (8) Fever Code(s): R50.9 - FEVER, UNSPECIFIED (9) Hypertension Code(s): I10 - ESSENTIAL (PRIMARY) HYPERTENSION (10) Hypothyroid Code(s): E03.9 - HYPOTHYROIDISM, UNSPECIFIED (11) Scleroderma Code(s): M34.9 - SYSTEMIC SCLEROSIS, UNSPECIFIED Assessment/Plan ABX Per ID check pleural fluid cytology still pending O2 as needed Local wound care VTE prophylaxis lasix/glycemic control Steven ENGLAND MD
--- NOTE | 2018-05-17 10:37 | PN ---
Progress Note (short form) - Note Progress Note: pt seen/ examined feels ok all f/u noted/ endo consult noted/ appreciated Vital Signs Temp 98 F 05/17/18 06:30 Pulse 87 05/17/18 06:30 Resp 20 05/17/18 06:30 BP 155/82 05/17/18 06:30 Pulse Ox 97 05/16/18 21:00 Intake & Output 05/16/18 05/16/18 05/17/18 11:59 23:59 11:59 Intake Total 200 950 Balance 200 950 Intake: Oral 200 950 Other: Voiding Method Incontinent Incontinent Incontinent # Unmeasured Voids Void 1 2 1 Bowel Movement Yes: Loose Yes No # Bowel Movements 2 1 Active Medications Acetaminophen (Tylenol -) 650 mg PO Q6HPO PRN PRN Reason: FEVER Last Admin: 05/16/18 18:36 Dose: 650 mg Amino Acids (Prosource No Carb Liquid Pkt) 30 ml PO BID@0800,1730 [facility] Last Admin: 05/17/18 08:36 Dose: 30 ml Bisacodyl (Dulcolax -) 20 mg PO ONCE ONE Stop: 05/17/18 13:01 Dextrose (D50w (Vial) -) 25 gm IVPUSH PRN PRN PRN Reason: low sugar Enoxaparin Sodium (Lovenox -) 40 mg SQ DAILY [facility] Last Admin: 05/16/18 10:17 Dose: 40 mg Guaifenesin (Diabetic Tussin Dm -) 5 ml PO Q4H PRN PRN Reason: COUGH Last Admin: 05/16/18 03:40 Dose: 5 ml Insulin Aspart (Novolog Vial Sliding Scale -) 1 vial SQ TIDAC [facility]; Protocol Last Admin: 05/17/18 06:33 Dose: 5 units Insulin Detemir (Levemir Vial) 6 units SQ DAILY@0700 [facility] Last Admin: 05/17/18 06:33 Dose: 6 units Insulin Detemir (Levemir Vial) 2 units SQ HS [facility] Last Admin: 05/16/18 22:11 Dose: 2 units Levothyroxine Sodium (Synthroid -) 25 mcg PO DAILY@0700 [facility] Last Admin: 05/17/18 06:34 Dose: 25 mcg Metoprolol Succinate (Toprol Xl -) 12.5 mg PO DAILY [facility] Last Admin: 05/16/18 10:17 Dose: 12.5 mg Polyethylene Glycol (Miralax (For Bowel Prep) -) 255 gm PO ONCE ONE Stop: 05/17/18 15:01 Ramipril (Altace -) 2.5 mg PO DAILY [facility] Last Admin: 05/16/18 10:17 Dose: 2.5 mg Vancomycin HCl (Vancomycin Oral Solution) 125 mg PO Q6HPO [facility] Last Admin: 05/17/18 05:40 Dose: 125 mg CBC, BMP 05/14/18 06:30 05/15/18 06:50 Pleural cytology - pending. physical exam Constitutional: Yes: No Distress, Calm. comfortable Cardiovascular: Yes: Regular Rate and Rhythm Respiratory: Yes: Diminished at bases Gastrointestinal: Yes: Normal Bowel Sounds, Soft. No: Distention, Tenderness Edema: No chronic skin changes--- due to psoriosis Assessment/Plan clinically stable oral vanco for cdiff ZOSYN discontinued nebs diabetic control---endo on case endoscopy tomorrow medically stable for same continue present care will follow daily oob - chair Problem List - Problems (1) Anemia Code(s): D64.9 - ANEMIA, UNSPECIFIED (2) Weakness generalized Code(s): R53.1 - WEAKNESS (3) Cellulitis Code(s): L03.90 - CELLULITIS, UNSPECIFIED Qualifiers: Site of cellulitis: unspecified site Qualified Code(s): L03.90 - Cellulitis , unspecified (4) Urinary tract infection Code(s): N39.0 - URINARY TRACT INFECTION, SITE NOT SPECIFIED Qualifiers: Urinary tract infection type: site unspecified Hematuria presence: without hematuria Qualified Code(s): N39.0 - Urinary tract infection, site not specified (5) Diabetes type 1, uncontrolled Code(s): E10.65 - TYPE 1 DIABETES MELLITUS WITH HYPERGLYCEMIA Qualifiers: Chronic kidney disease stage: stage 2 (mild) (6) Hypoglycemia due to insulin Code(s): E16.0 - DRUG-INDUCED HYPOGLYCEMIA WITHOUT COMA; T38.3X5A - ADVERSE EFFECT OF INSULIN AND ORAL HYPOGLYCEMIC DRUGS, INIT (7) Cough due to JUN inhibitor Code(s): R05 - COUGH; T46.4X5A - ADVERSE EFFECT OF [id number] INHIBITORS, INIT
[2018-05-17] MEDS ORDERED: ALPRAZolam 0.25 MG TABLET PO PRN (10:39)
[2018-05-17] MEDS: metoPROLOL SUCCINATE 25 MG TAB.SR.24H (FP) PO SCH (10:53)
[2018-05-17] MEDS: ENOXAPARIN NA (PORCINE) 40 MG/0.4 ML DISP.SYRIN SQ SCH (10:53)
[2018-05-17] MEDS: RAMIPRIL 2.5 MG CAPSULE (FP) PO SCH (10:54)
[2018-05-17] MEDS ORDERED: BISACODYL 5 MG TABLET.DR (FP) PO ONE (13:00)
[2018-05-17] MEDS ORDERED: POLYETHYLENE GLYCOL 3350 255 GM BTL PO ONE (15:00)
--- NOTE | 2018-05-17 16:14 | PN ---
Progress Note (short form) - Note Progress Note: Denies any complaints No hypos persistent high morning blood sugars On liquid diet for procedure tomorrow Vital Signs Period Temp Pulse Resp BP Sys/Sibley Pulse Ox Last 24 Hr 97.9 F-98.4 F 75-87 19-20 127-155/65-82 97 PE:AOx3 Neck: Supple, No JVD HEENT: EOMI Lungs: CTA CVS: S1S2 Abd: Benign Ext: No edema Neuro: No focal deficit CMP Sodium 136 mmol/L (136-145) 05/15/18 06:50 Potassium 5.0 mmol/L (3.5-5.1) 05/15/18 06:50 Chloride 103 mmol/L (98-107) 05/15/18 06:50 Carbon Dioxide 22 mmol/L (21-32) 05/15/18 06:50 Anion Gap 11 (8-16) 05/15/18 06:50 BUN 35 mg/dL (7-18) H 05/15/18 06:50 Creatinine 1.4 mg/dL (0.55-1.02) H 05/15/18 06:50 Creat Clearance w eGFR 39.49 (>60) 05/15/18 06:50 POC Glucometer 140 UNITS (80-120) 05/17/18 12:26 Random Glucose 334 mg/dL (74-106) H* 05/15/18 06:50 Lactic Acid 1.8 mmol/L (0.0-2.0) 05/07/18 13:08 Calcium 8.0 mg/dL (8.5-10.1) L 05/15/18 06:50 Iron 63 ug/dL (27-159) 05/12/18 06:15 TIBC 101 ug/dL (250-450) L 05/12/18 06:15 Iron Saturation 62 % (15-55) H 05/12/18 06:15 Ferritin Cancelled 05/11/18 10:00 Total Bilirubin 1.0 mg/dL (0.2-1.0) 05/14/18 06:30 Direct Bilirubin 0.6 mg/dL (0.0-0.2) H 05/14/18 06:30 AST 35 U/L (15-37) 05/14/18 06:30 ALT 18 U/L (12-78) 05/14/18 06:30 Alkaline Phosphatase 425 U/L (45-117) H D 05/14/18 06:30 Troponin I < 0.02 ng/ml (0.00-0.05) 05/07/18 10:20 C-Reactive Protein 1.2 MG/DL (0.00-0.3) H 05/07/18 10:00 Total Protein 5.0 g/dl (6.4-8.2) L 05/14/18 06:30 Albumin 1.6 g/dl (3.4-5.0) L 05/14/18 06:30 Vitamin B12 1700 pg/ml (180-914) H 05/10/18 12:47 Folate 1703 ng/mL (>498) 05/10/18 12:47 Folate Hemolysate 556.9 ng/mL (Not Estab.) 05/10/18 12:47 TSH 5.53 uIU/ml (0.358-3.74) H 05/10/18 12:47 Free T4 1.15 ng/dl (0.76-1.46) 05/10/18 12:47 Current Medications Generic Name Dose Route Start Last Admin Trade Name Freq PRN Reason Stop Dose Admin Acetaminophen 650 mg 05/09/18 10:15 05/16/18 18:36 Tylenol - PO 650 mg Q6HPO PRN Administration FEVER Alprazolam 0.25 mg 05/17/18 10:39 Xanax - PO Q8H PRN ANXIETY Amino Acids 30 ml 05/10/18 08:00 05/17/18 08:36 Prosource No Carb Liquid Pkt PO 30 ml BID@0800,1730 [facility] Administration Dextrose 25 gm 05/14/18 17:14 D50w (Vial) - IVPUSH PRN PRN low sugar Enoxaparin Sodium 40 mg 05/09/18 10:00 05/17/18 10:53 Lovenox - SQ 40 mg DAILY [facility] Administration Guaifenesin 5 ml 05/08/18 20:57 05/16/18 03:40 Diabetic Tussin Dm - PO 5 ml Q4H PRN Administration COUGH Insulin Aspart 1 vial 05/16/18 16:30 05/17/18 12:27 Novolog Vial Sliding Scale - SQ Not Given TIDAC [facility] Protocol Insulin Detemir 6 units 07/06/18 07:00 05/17/18 06:33 Levemir Vial SQ 6 units DAILY@0700 [facility] Administration Insulin Detemir 2 units 05/16/18 22:00 05/16/18 22:11 Levemir Vial SQ 2 units HS [facility] Administration Levothyroxine Sodium 25 mcg 05/08/18 07:00 05/17/18 06:34 Synthroid - PO 25 mcg DAILY@0700 [facility] Administration Metoprolol Succinate 12.5 mg 05/08/18 10:00 05/17/18 10:53 Toprol Xl - PO 12.5 mg DAILY [facility] Administration Ramipril 2.5 mg 05/08/18 10:00 05/17/18 10:54 Altace - PO 2.5 mg DAILY [facility] Administration Vancomycin HCl 125 mg 05/11/18 12:00 05/17/18 12:27 Vancomycin Oral Solution PO 125 mg Q6HPO [facility] Administration AP; T1DM: Brittle HTN Diarrhoea C Diff positive Psoariasis Hypothyroidism Fluctuating blood sugar Hypoglycemia at different times of the day. Persistent hyperglycemia in the morning. Denies snacking after dinner. No S/S of hypoglycemia during the night Pt says she has been eating regularly and doesn't skip meals Continue Novolog coverage. Levemir 6 units in AM and 2 units at HS FS at 3 AM also to r/o Somogi effect Start D5 1/2NS in the morning as pt is going to be NPO for procedure Should get Levemir in the morning to prevent DKA. Discussed with nursing staff Will F/U
[2018-05-17] MEDS ORDERED: ONDANSETRON 4 MG/2 ML VIAL IVPUSH ONE (21:22)
[2018-05-18] MEDS: guaiFENesin/D-M SUGAR-FREE/ACLHOL-FREE 118 ML BOTTLE PO PRN (02:28)
[2018-05-18] MEDS ORDERED: DEXTROSE 5%-0.45% SALINE 1,000 ML IV SCH ×3 (04:15→10:45)
[2018-05-18] MEDS: VANCOMYCIN 250 MG/5 ML ORAL SOLUTION PO SCH (06:19)
[2018-05-18] MEDS: LEVOTHYROXINE NA 25 MCG TABLET (FP) PO SCH (06:20)
[2018-05-18] MEDS: INSULIN SLIDING SCALE (NOVOLOG) 1 VIAL SQ SCH ×3 (06:20→17:16)
[2018-05-18 08:06] LABS: HEMATOCRIT 29.5 % (32.4-45.2); HEMOGLOBIN 10.1 GM/dL (10.7-15.3); MCH 32.4 pg (25.7-33.7); MCHC 34.1 g/dl (32.0-36.0); MEAN CELL VOLUME 94.8 fl (80-96); MEAN PLT VOLUME 6.5 fl (7.5-11.1); PLATELET COUNT 319 K/MM3 (134-434); RBC 3.12 M/mm3 (3.60-5.2); RDW 15.1 % (11.6-15.6); WHITE BLOOD COUNT 4.2 K/mm3 (4.0-10.0)
[2018-05-18 08:54] LABS: ALBUMIN 1.8 g/dl (3.4-5.0); ALK PHOS 368 U/L (45-117); ANION GAP 8 (8-16); BILIRUBIN,TOTAL 0.6 mg/dL (0.2-1.0); BLOOD UREA NITROGEN 30 mg/dL (7-18); CALCIUM 8.3 mg/dL (8.5-10.1); CHLORIDE 106 mmol/L (98-107); CO2 23 mmol/L (21-32); CREATININE 0.9 mg/dL (0.55-1.02); GLUCOSE,RANDOM 89 mg/dL (74-106); POTASSIUM 5.1 mmol/L (3.5-5.1); SGOT/AST 47 U/L (15-37); SGPT/ALT 21 U/L (12-78); SODIUM 137 mmol/L (136-145)
[2018-05-18] MEDS: INSULIN (LEVEMIR) 100 UNITS/ML UNITS SQ SCH ×2 (08:57→22:30)
[2018-05-18] MEDS: AMINO ACIDS/PROTEIN HYDROLYS 30 ML LIQUID.PKT PO SCH ×2 (08:57→17:33)
[2018-05-18] MEDS: metoPROLOL SUCCINATE 25 MG TAB.SR.24H (FP) PO SCH (09:04)
[2018-05-18] MEDS: RAMIPRIL 2.5 MG CAPSULE (FP) PO SCH (09:05)
[2018-05-18] MEDS: ENOXAPARIN NA (PORCINE) 40 MG/0.4 ML DISP.SYRIN SQ SCH (09:09)
[2018-05-18] MEDS ORDERED: LIDOCAINE HCL/PF 2% SDV 5ML VIAL ONE (10:44)
[2018-05-18] MEDS ORDERED: PROPOFOL 20 ML ONE (10:44)
[2018-05-18] MEDS ORDERED: PHENYLEPHRINE HCL 10 MG/1 ML SINGLE DOSE VIAL ONE (10:45)
[2018-05-18] MEDS ORDERED: ePHEDrine SULFATE 50 MG/1 ML AMPULE ONE (10:45)
[2018-05-18] MEDS ORDERED: NALOXONE HCL 0.4 MG/ML VIAL ONE (11:11)
--- NOTE | 2018-05-18 12:33 | PATH ---
Cytology Non-Gynecological Report Patient Name: CATHRYN KHAN [facility]. Rec. #: [id number] /Age/Gender: 1965 (Age: 52) / F Account: [id number] Location: [address] [place] [address] Taken: 05/12/2018 Received: 05/12/2018 Reported: 05/18/2018 Physicians: Tanner Tian M.D. Specimen(s) Received A: LEFT PLEURAL FLUID B: LEFT PLEURAL FLUID Clinical History Left pleural effusion Final Diagnosis PLEURAL FLUID, THORACENTESIS: SATISFACTORY FOR EVALUATION RARE MILDLY ATYPICAL CELLS PRESENT, FAVOR REACTIVE. Comment: Scanty mildly atypical cells with increased N/C ratio present. In view of patient's history of breast carcinoma ([id number]), immunohistochemical stains were performed and showed the atypical cells are negative for mammaglobin and GCDFP. Eileen-3 is non-contributory due to the weak background staining. ER and LA are negative. CK 7 and Calretinin stain the reactive mesothelial cells. CD68 highlight the macrophages in the background. The findings favor a reactive process. Suggest repeat cytology if clinically indicated. Eileen-3, Mammaglobin and GCDFP were performed at [place], [place] ([id number]). CK7, Calretinin, ER, LA, and CD68 were performed and interpreted at [facility]. Positive and negative controls (internal if applicable) show appropriate results. Electronically Signed Polo Washington M.D. Gross Description A. Approximately 50cc of yellow fluid received fixed in 50% alcohol. Two cytofunnels and one cellblock prepared. B. Approximately 1000cc of yellow fluid received fresh. Two cytofunnels and one cellblock prepared.
--- NOTE | 2018-05-18 12:36 | PN ---
Progress Note (short form) - Note Progress Note: EGD and colonoscopy reports left in procedureal section of physical chart and to be scanned into [email or web address] Hold Lovenox for 2 days and use alternate DVT prophylaxis given biopsies and polypectomy Omeprazole 20mg once daily for 8 weeks. Repeat EGD in 2 months Consider heme evaluation of anemia Evaluation of rash per PMD Problem List - Problems (1) Anemia Code(s): D64.9 - ANEMIA, UNSPECIFIED Qualifiers: Anemia type: unspecified type Qualified Code(s): D64.9 - Anemia, unspecified (2) Abnormal liver function tests Code(s): R94.5 - ABNORMAL RESULTS OF LIVER FUNCTION STUDIES
--- NOTE | 2018-05-18 13:26 | PN ---
Progress Note (short form) - Note Progress Note: Denies any complaints S/P EGD and Colonoscopy FS 70s today morning Vital Signs Period Temp Pulse Resp BP Sys/Sibley Pulse Ox Last 24 Hr 97.9 F-98.9 F 57-102 18-20 141-154/67-83 97-100 PE:AOx3 Neck: Supple, No JVD HEENT: EOMI Lungs: CTA CVS: S1S2 Abd: Benign Ext: No edema Neuro: No focal deficit CMP Sodium 137 mmol/L (136-145) 05/18/18 07:57 Potassium 5.1 mmol/L (3.5-5.1) 05/18/18 07:57 Chloride 106 mmol/L (98-107) 05/18/18 07:57 Carbon Dioxide 23 mmol/L (21-32) 05/18/18 07:57 Anion Gap 8 (8-16) 05/18/18 07:57 BUN 30 mg/dL (7-18) H 05/18/18 07:57 Creatinine 0.9 mg/dL (0.55-1.02) 05/18/18 07:57 Creat Clearance w eGFR > 60 (>60) 05/18/18 07:57 POC Glucometer 167 UNITS (80-120) 05/18/18 10:20 Random Glucose 89 mg/dL (74-106) 05/18/18 07:57 Hemoglobin A1c % 5.8 % (4.8-6.0) 05/18/18 05:55 Lactic Acid 1.8 mmol/L (0.0-2.0) 05/07/18 13:08 Calcium 8.3 mg/dL (8.5-10.1) L 05/18/18 07:57 Iron 63 ug/dL (27-159) 05/12/18 06:15 TIBC 101 ug/dL (250-450) L 05/12/18 06:15 Iron Saturation 62 % (15-55) H 05/12/18 06:15 Ferritin Cancelled 05/11/18 10:00 Total Bilirubin 0.6 mg/dL (0.2-1.0) 05/18/18 07:57 Direct Bilirubin 0.6 mg/dL (0.0-0.2) H 05/14/18 06:30 AST 47 U/L (15-37) H 05/18/18 07:57 ALT 21 U/L (12-78) 05/18/18 07:57 Alkaline Phosphatase 368 U/L (45-117) H D 05/18/18 07:57 Troponin I < 0.02 ng/ml (0.00-0.05) 05/07/18 10:20 C-Reactive Protein 1.2 MG/DL (0.00-0.3) H 05/07/18 10:00 Total Protein 5.0 g/dl (6.4-8.2) L 05/18/18 07:57 Albumin 1.8 g/dl (3.4-5.0) L 05/18/18 07:57 Vitamin B12 1700 pg/ml (180-914) H 05/10/18 12:47 Folate 1703 ng/mL (>498) 05/10/18 12:47 Folate Hemolysate 556.9 ng/mL (Not Estab.) 05/10/18 12:47 TSH 5.53 uIU/ml (0.358-3.74) H 05/10/18 12:47 Free T4 1.15 ng/dl (0.76-1.46) 05/10/18 12:47 Current Medications Generic Name Dose Route Start Last Admin Trade Name Freq PRN Reason Stop Dose Admin Acetaminophen 650 mg 05/09/18 10:15 05/16/18 18:36 Tylenol - PO 650 mg Q6HPO PRN Administration FEVER Alprazolam 0.25 mg 05/17/18 10:39 05/18/18 06:20 Xanax - PO 0.25 mg Q8H PRN Administration ANXIETY Amino Acids 30 ml 05/10/18 08:00 05/18/18 08:57 Prosource No Carb Liquid Pkt PO 30 ml BID@0800,1730 [facility] Administration Dextrose 25 gm 05/14/18 17:14 D50w (Vial) - IVPUSH PRN PRN low sugar Enoxaparin Sodium 40 mg 05/09/18 10:00 05/18/18 09:09 Lovenox - SQ Not Given DAILY [facility] Guaifenesin 5 ml 05/08/18 20:57 05/18/18 02:28 Diabetic Tussin Dm - PO 5 ml Q4H PRN Administration COUGH Dextrose/Sodium Chloride 1,000 mls @ 100 mls/hr 05/18/18 10:45 05/18/18 08:00 D5-1/2ns - IV 100 mls/hr ASDIR [facility] Administration Insulin Aspart 1 vial 05/16/18 16:30 05/18/18 06:20 Novolog Vial Sliding Scale - SQ Not Given TIDAC [facility] Protocol Insulin Detemir 6 units 05/08/18 07:00 05/18/18 08:57 Levemir Vial SQ 4 units DAILY@0700 [facility] Administration Insulin Detemir 2 units 05/16/18 22:00 05/17/18 21:54 Levemir Vial SQ 2 units HS [facility] Administration Levothyroxine Sodium 25 mcg 05/08/18 07:00 05/18/18 06:20 Synthroid - PO 25 mcg DAILY@0700 [facility] Administration Metoprolol Succinate 12.5 mg 05/08/18 10:00 05/18/18 09:04 Toprol Xl - PO 12.5 mg DAILY [facility] Administration Ramipril 2.5 mg 05/08/18 10:00 05/18/18 09:05 Altace - PO 2.5 mg DAILY [facility] Administration AP; T1DM: Brittle HTN Diarrhoea C Diff positive Psoariasis Hypothyroidism Fluctuating blood sugar Hypoglycemia at different times of the day. Persistent hyperglycemia in the morning. Denies snacking after dinner. As per umbrella cutter she is getting Ensure at night. Will D/C Ensure and start half sandwich as snack at bed time. No S/S of hypoglycemia during the night Continue Novolog coverage. Levemir 6 units in AM and 2 units at HS Got levemir 4 units today morning as she was NPO FS at 3 AM also to r/o Somogi effect Will F/U
--- NOTE | 2018-05-18 13:36 | PN ---
Progress Note (short form) - Note Progress Note: Pt seen/ examined. s/p egd/ colonoscopy today Comfortable Denies pain Vital Signs Temp 98.9 F 05/18/18 12:21 Pulse 65 05/18/18 12:21 Resp 18 05/18/18 12:21 BP 154/75 05/18/18 12:21 Pulse Ox 98 05/18/18 12:21 Intake & Output 05/17/18 05/18/18 05/18/18 23:59 11:59 23:59 Intake Total 1999 600 Balance 1999 600 Intake: IV 600 D5-1/2Ns - 1,000 ml @ 50 150 mls/hr IV ASDIR [facility] Rx#: [id number] Oral 1999 Other: Voiding Method Incontinent Incontinent # Unmeasured Voids Void 2 1 Bowel Movement Yes Yes # Bowel Movements 4 3 Active Medications Acetaminophen (Tylenol -) 650 mg PO Q6HPO PRN PRN Reason: FEVER Last Admin: 05/16/18 18:36 Dose: 650 mg Alprazolam (Xanax -) 0.25 mg PO Q8H PRN PRN Reason: ANXIETY Last Admin: 05/18/18 06:20 Dose: 0.25 mg Amino Acids (Prosource No Carb Liquid Pkt) 30 ml PO BID@0800,1730 [facility] Last Admin: 05/18/18 08:57 Dose: 30 ml Dextrose (D50w (Vial) -) 25 gm IVPUSH PRN PRN PRN Reason: low sugar Enoxaparin Sodium (Lovenox -) 40 mg SQ DAILY [facility] Last Admin: 05/18/18 09:09 Dose: Not Given Guaifenesin (Diabetic Tussin Dm -) 5 ml PO Q4H PRN PRN Reason: COUGH Last Admin: 05/18/18 02:28 Dose: 5 ml Insulin Aspart (Novolog Vial Sliding Scale -) 1 vial SQ TIDAC [facility]; Protocol Last Admin: 05/18/18 06:20 Dose: Not Given Insulin Detemir (Levemir Vial) 6 units SQ DAILY@0700 [facility] Last Admin: 05/18/18 08:57 Dose: 4 units Insulin Detemir (Levemir Vial) 2 units SQ HS [facility] Last Admin: 05/17/18 21:54 Dose: 2 units Levothyroxine Sodium (Synthroid -) 25 mcg PO DAILY@0700 [facility] Last Admin: 05/18/18 06:20 Dose: 25 mcg Metoprolol Succinate (Toprol Xl -) 12.5 mg PO DAILY [facility] Last Admin: 05/18/18 09:04 Dose: 12.5 mg Ramipril (Altace -) 2.5 mg PO DAILY [facility] Last Admin: 05/18/18 09:05 Dose: 2.5 mg CBC, BMP 05/18/18 07:57 05/18/18 07:57 Microbiology 05/15/18 10:45 Clostridium difficile (PCR) - Final Stool physical exam Constitutional: Yes: No Distress, Calm. comfortable Cardiovascular: Yes: Regular Rate and Rhythm Respiratory: Yes: Diminished at bases Gastrointestinal: Yes: Normal Bowel Sounds, Soft. No: Distention, Tenderness Edema: No chronic skin changes--- due to psoriosis Assessment/Plan clinically stable oral vanco for cdiff ZOSYN discontinued nebs diabetic control---endo on case endoscopy Findings noted medically stable continue present care hold Lovenox for 2 days await pathology daily oob - chair Discharge planning--anticipate tomorrow if stable Will follow Problem List - Problems (1) Anemia Code(s): D64.9 - ANEMIA, UNSPECIFIED (2) Weakness generalized Code(s): R53.1 - WEAKNESS (3) Cellulitis Code(s): L03.90 - CELLULITIS, UNSPECIFIED Qualifiers: Site of cellulitis: unspecified site Qualified Code(s): L03.90 - Cellulitis , unspecified (4) Urinary tract infection Code(s): N39.0 - URINARY TRACT INFECTION, SITE NOT SPECIFIED Qualifiers: Urinary tract infection type: site unspecified Hematuria presence: without hematuria Qualified Code(s): N39.0 - Urinary tract infection, site not specified (5) Diabetes type 1, uncontrolled Code(s): E10.65 - TYPE 1 DIABETES MELLITUS WITH HYPERGLYCEMIA Qualifiers: Chronic kidney disease stage: stage 2 (mild) (6) Hypoglycemia due to insulin Code(s): E16.0 - DRUG-INDUCED HYPOGLYCEMIA WITHOUT COMA; T38.3X5A - ADVERSE EFFECT OF INSULIN AND ORAL HYPOGLYCEMIC DRUGS, INIT (7) Cough due to JUN inhibitor Code(s): R05 - COUGH; T46.4X5A - ADVERSE EFFECT OF [id number] INHIBITORS, INIT
[2018-05-19] MEDS: INSULIN SLIDING SCALE (NOVOLOG) 1 VIAL SQ SCH ×3 (06:51→16:20)
[2018-05-19] MEDS: LEVOTHYROXINE NA 25 MCG TABLET (FP) PO SCH (06:52)
[2018-05-19] MEDS: INSULIN (LEVEMIR) 100 UNITS/ML UNITS SQ SCH ×2 (06:52→22:31)
[2018-05-19 07:39] LABS: BASO % 1.1 % (0-2.0); EOS % 5.7 % (0-4.5); HEMATOCRIT 29.7 % (32.4-45.2); HEMOGLOBIN 10.1 GM/dL (10.7-15.3); MCH 32.4 pg (25.7-33.7); MCHC 34.1 g/dl (32.0-36.0); MEAN PLT VOLUME 6.7 fl (7.5-11.1); MONO % 9.9 % (3.8-10.2); NEUT % 63.3 % (42.8-82.8); PLATELET COUNT 320 K/MM3 (134-434); RBC 3.13 M/mm3 (3.60-5.2); RDW 14.7 % (11.6-15.6); WHITE BLOOD COUNT 4.3 K/mm3 (4.0-10.0)
[2018-05-19 09:02] LABS: ALBUMIN 1.9 g/dl (3.4-5.0); ANION GAP 10 (8-16); BILIRUBIN,TOTAL 0.5 mg/dL (0.2-1.0); BLOOD UREA NITROGEN 28 mg/dL (7-18); CALCIUM 8.5 mg/dL (8.5-10.1); CHLORIDE 105 mmol/L (98-107); CO2 22 mmol/L (21-32); CREATININE 0.9 mg/dL (0.55-1.02); GLUCOSE,RANDOM 280 mg/dL (74-106); POTASSIUM 4.6 mmol/L (3.5-5.1); SGOT/AST 48 U/L (15-37); SGPT/ALT 24 U/L (12-78); SODIUM 137 mmol/L (136-145); TOT PROT 5.2 g/dl (6.4-8.2)
[2018-05-19 09:03] LABS: ALK PHOS 414 U/L (45-117)
[2018-05-19] MEDS: RAMIPRIL 2.5 MG CAPSULE (FP) PO SCH (09:05)
[2018-05-19] MEDS: ENOXAPARIN NA (PORCINE) 40 MG/0.4 ML DISP.SYRIN SQ SCH (09:05)
[2018-05-19] MEDS: AMINO ACIDS/PROTEIN HYDROLYS 30 ML LIQUID.PKT PO SCH ×2 (09:05→17:11)
[2018-05-19] MEDS: metoPROLOL SUCCINATE 25 MG TAB.SR.24H (FP) PO SCH (09:10)
[2018-05-19] MEDS: PANTOPRAZOLE 20 MG TABLET (FP) PO SCH (11:15)
--- NOTE | 2018-05-19 12:18 | PN ---
Progress Note (short form) - Note Progress Note: PULMONARY Denies shortness of breath, cough but with occasional wheezing. Pleural cytology negative. Vital Signs Period Temp Pulse Resp BP Sys/Sibley Pulse Ox Last 24 Hr 97.5 F-98.9 F 65-113 18-18 144-154/64-77 98-98 Gen: NAD at rest Heart: RRR Lung: decreased breath sounds at the bases Abd: soft, nontender Ext: no edema CBC, BMP 05/19/18 07:10 05/19/18 07:10 Active Medications Acetaminophen (Tylenol -) 650 mg PO Q6HPO PRN PRN Reason: FEVER Last Admin: 05/16/18 18:36 Dose: 650 mg Alprazolam (Xanax -) 0.25 mg PO Q8H PRN PRN Reason: ANXIETY Last Admin: 05/18/18 06:20 Dose: 0.25 mg Amino Acids (Prosource No Carb Liquid Pkt) 30 ml PO BID@0800,1730 [facility] Last Admin: 05/19/18 09:05 Dose: 30 ml Dextrose (D50w (Vial) -) 25 gm IVPUSH PRN PRN PRN Reason: low sugar Enoxaparin Sodium (Lovenox -) 40 mg SQ DAILY [facility] Last Admin: 05/19/18 09:05 Dose: 40 mg Guaifenesin (Diabetic Tussin Dm -) 5 ml PO Q4H PRN PRN Reason: COUGH Last Admin: 05/18/18 02:28 Dose: 5 ml Insulin Aspart (Novolog Vial Sliding Scale -) 1 vial SQ TIDAC [facility]; Protocol Last Admin: 05/19/18 11:04 Dose: Not Given Insulin Detemir (Levemir Vial) 6 units SQ DAILY@0700 [facility] Last Admin: 05/19/18 06:52 Dose: 6 units Insulin Detemir (Levemir Vial) 2 units SQ HS [facility] Last Admin: 05/18/18 22:30 Dose: 2 units Levothyroxine Sodium (Synthroid -) 25 mcg PO DAILY@0700 [facility] Last Admin: 05/19/18 06:52 Dose: 25 mcg Metoprolol Succinate (Toprol Xl -) 12.5 mg PO DAILY [facility] Last Admin: 05/19/18 09:10 Dose: 12.5 mg Pantoprazole Sodium (Protonix -) 20 mg PO DAILY [facility] Last Admin: 05/19/18 11:15 Dose: 20 mg Ramipril (Altace -) 2.5 mg PO DAILY [facility] Last Admin: 05/19/18 09:05 Dose: 2.5 mg A/P UTI Chest Wall Infection Left Pleural Effusion s/p thoracentesis - transudate DM - off antibiotics - f/u pleural fluid cultures - O2 to keep SpO2 >90% - rehab/PT - DVT prophylaxis
--- NOTE | 2018-05-19 12:45 | PN ---
Progress Note, Physician Chief Complaint: diarrhea- decreased no nausea, abdominal pain no SOB no chest pain - Current Medication List Current Medications: Active Medications Acetaminophen (Tylenol -) 650 mg PO Q6HPO PRN PRN Reason: FEVER Last Admin: 05/16/18 18:36 Dose: 650 mg Alprazolam (Xanax -) 0.25 mg PO Q8H PRN PRN Reason: ANXIETY Last Admin: 05/18/18 06:20 Dose: 0.25 mg Amino Acids (Prosource No Carb Liquid Pkt) 30 ml PO BID@0800,1730 [facility] Last Admin: 05/19/18 09:05 Dose: 30 ml Dextrose (D50w (Vial) -) 25 gm IVPUSH PRN PRN PRN Reason: low sugar Enoxaparin Sodium (Lovenox -) 40 mg SQ DAILY [facility] Last Admin: 05/19/18 09:05 Dose: 40 mg Guaifenesin (Diabetic Tussin Dm -) 5 ml PO Q4H PRN PRN Reason: COUGH Last Admin: 05/18/18 02:28 Dose: 5 ml Insulin Aspart (Novolog Vial Sliding Scale -) [facility] Last Admin: 05/19/18 11:04 Dose: Not Given Insulin Detemir (Levemir Vial) 6 units SQ DAILY@0700 [facility] Last Admin: 05/19/18 06:52 Dose: 6 units Insulin Detemir (Levemir Vial) 2 units SQ HS [facility] Last Admin: 05/18/18 22:30 Dose: 2 units Levothyroxine Sodium (Synthroid -) 25 mcg PO DAILY@0700 [facility] Last Admin: 05/19/18 06:52 Dose: 25 mcg Metoprolol Succinate (Toprol Xl -) 12.5 mg PO DAILY [facility] Last Admin: 05/19/18 09:10 Dose: 12.5 mg Pantoprazole Sodium (Protonix -) 20 mg PO DAILY [facility] Last Admin: 05/19/18 11:15 Dose: 20 mg Ramipril (Altace -) 2.5 mg PO DAILY [facility] Last Admin: 05/19/18 09:05 Dose: 2.5 mg - Objective Vital Signs: Vital Signs Temperature 98.0 F 05/19/18 06:00 Pulse Rate 113 H 05/19/18 06:00 Respiratory Rate 18 05/19/18 06:00 Blood Pressure 144/77 05/19/18 06:00 O2 Sat by Pulse Oximetry (%) 98 05/18/18 21:00 Constitutional: Yes: No Distress Cardiovascular: Yes: Regular Rate and Rhythm Respiratory: Yes: CTA Bilaterally Gastrointestinal: Yes: Normal Bowel Sounds, Soft. No: Tenderness Edema: No Labs: CBC, BMP 05/19/18 07:10 05/19/18 07:10 INR, PTT INR 0.89 (0.82-1.09) 05/07/18 13:08 Problem List - Problems (1) Cellulitis Code(s): L03.90 - CELLULITIS, UNSPECIFIED Qualifiers: Site of cellulitis: unspecified site Qualified Code(s): L03.90 - Cellulitis , unspecified (2) Diabetes Code(s): E11.9 - TYPE 2 DIABETES MELLITUS WITHOUT COMPLICATIONS (3) Pleural effusion Code(s): J90 - PLEURAL EFFUSION, NOT ELSEWHERE CLASSIFIED (4) Pneumonia Code(s): J18.9 - PNEUMONIA, UNSPECIFIED ORGANISM (5) Weakness generalized Code(s): R53.1 - WEAKNESS (6) Diabetes type 1, uncontrolled Code(s): E10.65 - TYPE 1 DIABETES MELLITUS WITH HYPERGLYCEMIA Qualifiers: Chronic kidney disease stage: stage 2 (mild) (7) Urinary tract infection Code(s): N39.0 - URINARY TRACT INFECTION, SITE NOT SPECIFIED Qualifiers: Urinary tract infection type: site unspecified Hematuria presence: without hematuria Qualified Code(s): N39.0 - Urinary tract infection, site not specified (8) Clostridium difficile diarrhea Code(s): A04.72 - ENTEROCOLITIS D/T CLOSTRIDIUM DIFFICILE, NOT SPCF RECUR Assessment/Plan PLAN off antibiotics s/p EGD and colonoscopy s/p thoracentesis continue with meds dc planning
--- NOTE | 2018-05-19 13:29 | PN ---
Progress Note (short form) - Note Progress Note: [facility] seen and examined. Pt has history of bl mastectomies. Pt recently had scabs there that she picked at that now developed into wounds Left chest -- wound with slough. no granulation tissue. Right chest - healing well. good granulation. Will start santyl to all wounds. Gave card to follow up in [facility] if possible after discharge. Desmond Rodriguez DO
--- NOTE | 2018-05-19 15:31 | PN ---
Progress Note (short form) - Note Progress Note: Denies any complaints FS yesterday after D5 was discontinued Currently on O2 via nasal canula Denies any SOB Vital Signs Period Temp Pulse Resp BP Sys/Sibley Pulse Ox Last 24 Hr 98 F-98.0 F 78-113 -18 144-144/71-77 98 PE:AOx3 Neck: Supple, No JVD HEENT: EOMI Lungs: CTA CVS: S1S2 Abd: Benign Ext: No edema Neuro: No focal deficit CMP Sodium 137 mmol/L (136-145) 05/19/18 07:10 Potassium 4.6 mmol/L (3.5-5.1) 05/19/18 07:10 Chloride 105 mmol/L (98-107) 05/19/18 07:10 Carbon Dioxide 22 mmol/L (21-32) 05/19/18 07:10 Anion Gap 10 (8-16) 05/19/18 07:10 BUN 28 mg/dL (7-18) H 05/19/18 07:10 Creatinine 0.9 mg/dL (0.55-1.02) 05/19/18 07:10 Creat Clearance w eGFR > 60 (>60) 05/19/18 07:10 POC Glucometer 108 UNITS (80-120) 05/19/18 11:03 Random Glucose 280 mg/dL (74-106) H 05/19/18 07:10 Hemoglobin A1c % 5.8 % (4.8-6.0) 05/18/18 05:55 Lactic Acid 1.8 mmol/L (0.0-2.0) 05/07/18 13:08 Calcium 8.5 mg/dL (8.5-10.1) 05/19/18 07:10 Iron 63 ug/dL (27-159) 05/12/18 06:15 TIBC 101 ug/dL (250-450) L 05/12/18 06:15 Iron Saturation 62 % (15-55) H 05/12/18 06:15 Ferritin Cancelled 05/11/18 10:00 Total Bilirubin 0.5 mg/dL (0.2-1.0) 05/19/18 07:10 Direct Bilirubin 0.6 mg/dL (0.0-0.2) H 05/14/18 06:30 AST 48 U/L (15-37) H 05/19/18 07:10 ALT 24 U/L (12-78) 05/19/18 07:10 Alkaline Phosphatase 414 U/L (45-117) H D 05/19/18 07:10 Troponin I < 0.02 ng/ml (0.00-0.05) 05/07/18 10:20 C-Reactive Protein 1.2 MG/DL (0.00-0.3) H 05/07/18 10:00 Total Protein 5.2 g/dl (6.4-8.2) L 05/19/18 07:10 Albumin 1.9 g/dl (3.4-5.0) L 05/19/18 07:10 Vitamin B12 1700 pg/ml (180-914) H 05/10/18 12:47 Folate 1703 ng/mL (>498) 05/10/18 12:47 Folate Hemolysate 556.9 ng/mL (Not Estab.) 05/10/18 12:47 TSH 5.53 uIU/ml (0.358-3.74) H 05/10/18 12:47 Free T4 1.15 ng/dl (0.76-1.46) 05/10/18 12:47 Current Medications Generic Name Dose Route Start Last Admin Trade Name Lelo PRN Reason Stop Dose Admin Acetaminophen 650 mg 05/09/18 10:15 05/16/18 18:36 Tylenol - PO 650 mg Q6HPO PRN Administration FEVER Alprazolam 0.25 mg 05/17/18 10:39 05/18/18 06:20 Xanax - PO 0.25 mg Q8H PRN Administration ANXIETY Amino Acids 30 ml 05/10/18 08:00 05/19/18 09:05 Prosource No Carb Liquid Pkt PO 30 ml BID@0800,1730 TERESITA Administration Collagenase 1 applic 05/19/18 15:00 Santyl - TP DAILY TERESITA Protocol Dextrose 25 gm 05/14/18 17:14 D50w (Vial) - IVPUSH PRN PRN low sugar Enoxaparin Sodium 40 mg 05/09/18 10:00 05/19/18 09:05 Lovenox - SQ 40 mg DAILY TERESITA Administration Guaifenesin 5 ml 05/08/18 20:57 05/18/18 02:28 Diabetic Tussin Dm - PO 5 ml Q4H PRN Administration COUGH Insulin Aspart 1 vial 05/16/18 16:30 05/19/18 11:04 Novolog Vial Sliding Scale - SQ Not Given TIDAC [facility] Protocol Insulin Detemir 6 units 05/08/18 07:00 05/19/18 06:52 Levemir Vial SQ 6 units DAILY@0700 TERESITA Administration Insulin Detemir 2 units 05/16/18 22:00 05/18/18 22:30 Levemir Vial SQ 2 units HS TERESITA Administration Levothyroxine Sodium 25 mcg 05/08/18 07:00 05/19/18 06:52 Synthroid - PO 25 mcg DAILY@0700 TERESITA Administration Metoprolol Succinate 12.5 mg 05/08/18 10:00 05/19/18 09:10 Toprol Xl - PO 12.5 mg DAILY TERESITA Administration Pantoprazole Sodium 20 mg 05/19/18 10:00 05/19/18 11:15 Protonix - PO 20 mg DAILY TERESITA Administration Ramipril 2.5 mg 05/08/18 10:00 05/19/18 09:05 Altace - PO 2.5 mg DAILY TERESITA Administration AP; T1DM: Brittle HTN Diarrhoea C Diff positive Psoariasis Hypothyroidism Fluctuating blood sugar Hypoglycemia at different times of the day. Persistent hyperglycemia in the morning. Took Ensure last night also. Discussed with pt to take Half a sandwich only unless FS <70 No S/S of hypoglycemia during the night Continue Novolog coverage. Decrease Levemir 5 units in AM and 2 units at HS FS at 3 AM also to r/o Somogi effect Will F/U
[2018-05-19] MEDS ORDERED: PT OWN MED DRAWER 7, Y5N ONE (15:42)
[2018-05-19] MEDS: COLLAGENASE CLOSTRIDIUM HIST. 30 GRAMS TUBE TP SCH (17:11)
[2018-05-20] MEDS: LEVOTHYROXINE NA 25 MCG TABLET (FP) PO SCH (06:45)
[2018-05-20] MEDS: INSULIN SLIDING SCALE (NOVOLOG) 1 VIAL SQ SCH ×2 (06:47→12:00)
[2018-05-20] MEDS ORDERED: INSULIN (LEVEMIR) 100 UNITS/ML UNITS SQ SCH (07:00)
[2018-05-20] MEDS: AMINO ACIDS/PROTEIN HYDROLYS 30 ML LIQUID.PKT PO SCH (10:00)
[2018-05-20] MEDS: ENOXAPARIN NA (PORCINE) 40 MG/0.4 ML DISP.SYRIN SQ SCH (10:00)
[2018-05-20] MEDS: metoPROLOL SUCCINATE 25 MG TAB.SR.24H (FP) PO SCH (10:00)
[2018-05-20] MEDS: PANTOPRAZOLE 20 MG TABLET (FP) PO SCH (10:01)
[2018-05-20] MEDS: RAMIPRIL 2.5 MG CAPSULE (FP) PO SCH (10:01)
[2018-05-20] MEDS: COLLAGENASE CLOSTRIDIUM HIST. 30 GRAMS TUBE TP SCH (10:06)
--- NOTE | 2018-05-20 11:50 | DS ---
Physical Examination Vital Signs: Vital Signs Temperature 98.2 F 05/20/18 10:08 Pulse Rate 97 H 05/20/18 10:08 Respiratory Rate 18 05/20/18 10:08 Blood Pressure 148/77 05/20/18 10:08 O2 Sat by Pulse Oximetry (%) 98 05/18/18 21:00 Constitutional: Yes: No Distress Cardiovascular: Yes: Regular Rate and Rhythm Respiratory: Yes: CTA Bilaterally Gastrointestinal: Yes: Normal Bowel Sounds, Soft. 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 Dixon is a 52 yo female w/ pmh of CKD stage III, IDDM, diabetic nephropathy, nephrolithiasis, HTN, HLD, Breast CA s/p nanda mastectomy, scleroderma, and psoriasis who presents for evaluation of 4-5 day history of generalized weakness. She further describes chest itchiness she attributes to her psoriasis and relates that she has been scratching at it. The patient denies chest pain, shortness of breath, headache and dizziness. Denies fever, chills, nausea, vomit, diarrhea and constipation. Denies dysuria, frequency, urgency and hematuria. pt seen/ examined currently treated with abx for uti given fluids also w/c + for mrsa -- lab just called cough +- she describes dry/ chronic. Hospitalization course Pt admitted for B/L chest wall celluliutis, severe anemia Seen by GI for severe anemia-- EGD /colonoscopy done on 05/18- big polyp in colon -- pathology pending ID- for wound cellulitis and Cdiff-- completed antibiotics Oncology for breast CA, pleural effusion and Anemia-- underwent thoracentesis- - negative for malignancy , s/p PRBC Endocrinology - for hypoglycemia-- meds adjusted Wound care -- breast wounds -- on santyl dressing Has rash on her back- likely to fungal-- Nystatin prescribed stable for dc home - will need physical therapy Follow up with GI for biopsy results Condition: Improved - Instructions Referrals: Harish Thomas DO [Staff Physician] - Luzma Roland MD [Staff Physician] - 2 Weeks Denzel Seymour MD [Primary Care Provider] - Disposition: HOME - Home Medications Comprehensive Discharge Medication List: Ambulatory Orders Levothyroxine [Synthroid -] 25 mcg PO DAILY@0700 #30 tablet 06/20/14 Metoprolol Succinate [Toprol XL -] 12.5 mg PO DAILY 07/19/14 Mauri Cit/Mag/D3/Zn/Athletic Gear Custodian/Atif/Bor [Citracal-Vit D + Magnesium Tab] 1 each PO DAILY 11/30/17 Ramipril 2.5 mg PO DAILY 05/07/18 Amino Acids/Protein Hydrolys [Prosource No Carb Liquid Pkt] 30 ml PO BID@0800, 1730 #20 packet 05/19/18 Collagenase Clostridium Hist. [Santyl -] 1 applic TP DAILY #10 tube 05/19/18 Insulin (Levemir) [Levemir Vial] 2 units SQ HS #20 units 05/19/18 Insulin (Levemir) [Levemir Vial] 5 units SQ DAILY@0700 #14 units 05/19/18 Pantoprazole Sodium [Protonix -] 20 mg PO DAILY #30 tablet.ec 05/19/18
--- NOTE | 2018-05-20 13:28 | PN ---
Progress Note (short form) - Note Progress Note: Denies any complaints FS acceptable No hypos Vital Signs Period Temp Pulse Resp BP Sys/Sibley Pulse Ox Last 24 Hr 98 F-98.3 F 74-97 16-20 144-156/71-77 PE:AOx3 Neck: Supple, No JVD HEENT: EOMI Lungs: CTA CVS: S1S2 Abd: Benign Ext: No edema Neuro: No focal deficit CMP Sodium 137 mmol/L (136-145) 05/19/18 07:10 Potassium 4.6 mmol/L (3.5-5.1) 05/19/18 07:10 Chloride 105 mmol/L (98-107) 05/19/18 07:10 Carbon Dioxide 22 mmol/L (21-32) 05/19/18 07:10 Anion Gap 10 (8-16) 05/19/18 07:10 BUN 28 mg/dL (7-18) H 05/19/18 07:10 Creatinine 0.9 mg/dL (0.55-1.02) 05/19/18 07:10 Creat Clearance w eGFR > 60 (>60) 05/19/18 07:10 POC Glucometer 168 UNITS (80-120) 05/20/18 11:53 Random Glucose 280 mg/dL (74-106) H 05/19/18 07:10 Hemoglobin A1c % 5.8 % (4.8-6.0) 05/18/18 05:55 Lactic Acid 1.8 mmol/L (0.0-2.0) 05/07/18 13:08 Calcium 8.5 mg/dL (8.5-10.1) 05/19/18 07:10 Iron 63 ug/dL (27-159) 05/12/18 06:15 TIBC 101 ug/dL (250-450) L 05/12/18 06:15 Iron Saturation 62 % (15-55) H 05/12/18 06:15 Ferritin Cancelled 05/11/18 10:00 Total Bilirubin 0.5 mg/dL (0.2-1.0) 05/19/18 07:10 Direct Bilirubin 0.6 mg/dL (0.0-0.2) H 05/14/18 06:30 AST 48 U/L (15-37) H 05/19/18 07:10 ALT 24 U/L (12-78) 05/19/18 07:10 Alkaline Phosphatase 414 U/L (45-117) H D 05/19/18 07:10 Troponin I < 0.02 ng/ml (0.00-0.05) 05/07/18 10:20 C-Reactive Protein 1.2 MG/DL (0.00-0.3) H 05/07/18 10:00 Total Protein 5.2 g/dl (6.4-8.2) L 05/19/18 07:10 Albumin 1.9 g/dl (3.4-5.0) L 05/19/18 07:10 Vitamin B12 1700 pg/ml (180-914) H 05/10/18 12:47 Folate 1703 ng/mL (>498) 05/10/18 12:47 Folate Hemolysate 556.9 ng/mL (Not Estab.) 05/10/18 12:47 TSH 5.53 uIU/ml (0.358-3.74) H 05/10/18 12:47 Free T4 1.15 ng/dl (0.76-1.46) 05/10/18 12:47 Current Medications Generic Name Dose Route Start Last Admin Trade Name Freq PRN Reason Stop Dose Admin Amino Acids 30 ml 05/10/18 08:00 05/20/18 10:00 Prosource No Carb Liquid Pkt PO 30 ml BID@0800,1730 TERESITA Administration Collagenase 1 applic 05/19/18 15:00 05/20/18 10:06 Santyl - TP 1 appful DAILY TERESITA Administration Protocol Dextrose 25 gm 05/14/18 17:14 D50w (Vial) - IVPUSH PRN PRN low sugar Enoxaparin Sodium 40 mg 05/09/18 10:00 05/20/18 10:00 Lovenox - SQ 40 mg DAILY TERESITA Administration Guaifenesin 5 ml 05/08/18 20:57 05/18/18 02:28 Diabetic Tussin Dm - PO 5 ml Q4H PRN Administration COUGH Insulin Aspart 1 vial 05/16/18 16:30 05/20/18 12:00 Novolog Vial Sliding Scale - SQ 2 units TIDAC TERESITA Administration Protocol Insulin Detemir 2 units 05/16/18 22:00 05/19/18 22:31 Levemir Vial SQ 2 units HS TERESITA Administration Insulin Detemir 5 units 05/20/18 07:00 05/20/18 06:44 Levemir Vial SQ 5 units DAILY@0700 TERESITA Administration Levothyroxine Sodium 25 mcg 05/08/18 07:00 05/20/18 06:45 Synthroid - PO 25 mcg DAILY@0700 TERESITA Administration Metoprolol Succinate 12.5 mg 05/08/18 10:00 05/20/18 10:00 Toprol Xl - PO 12.5 mg DAILY TERESITA Administration Pantoprazole Sodium 20 mg 05/19/18 10:00 05/20/18 10:01 Protonix - PO 20 mg DAILY TERESITA Administration Ramipril 2.5 mg 05/08/18 10:00 05/20/18 10:01 Altace - PO 2.5 mg DAILY TERESITA Administration AP; T1DM: Brittle HTN Diarrhoea C Diff positive Psoariasis Hypothyroidism Fluctuating blood sugar No hypos in last 24 hrs No morning hyperglycemia off Ensure/Glucerna at night No S/S of hypoglycemia during the night Continue Novolog coverage. Levemir 5 units in AM and 2 units at HS Pt may go home on current Insulin regimen to f/u with her Color Laboratory Technician in one week. Will F/U
[2018-05-20 14:03] VITALS: BP 149/79; PULSE 79; TEMP 97.8
--- NOTE | 2018-05-20 14:49 | PATH ---
Surgical Pathology Report Patient Name: CATHRYN KHAN [facility]. Rec. #: [id number] /Age/Gender: 1965 (Age: 52) / F Account: [id number] Location: [address] [place] [address]/[facility] Taken: 05/18/2018 Received: 05/18/2018 Reported: 05/20/2018 Physicians: Yari Kang M.D. Specimen(s) Received A: BX DUODENUM B: BX ANTRUM C: BX BODY D: BX DISTAL ESOPHAGUS OF PLAQUE E: POLYP SIGMOID AT 40 CM F: BX TERMINAL ILEUM G: BX RIGHT COLON H: BX TRANSVERSE COLON I: BX LEFT COLON J: BX SIGMOID Clinical History Dysphagia, diarrhea Postoperative diagnosis: Gastroparesis, gastritis, colon polyp Final Diagnosis A. DUODENUM, BIOPSY: DUODENAL MUCOSA WITHOUT SIGNIFICANT PATHOLOGIC FINDINGS. NO FEATURES OF CELIAC DISEASE IDENTIFIED. B. STOMACH, ANTRUM, BIOPSY: POLYPOID GASTRIC MUCOSA WITH MILD CHRONIC INFLAMMATION AND FOCAL FOVEOLAR HYPERPLASIA CONSISTENT WITH CHANGES OF REACTIVE GASTROPATHY. DIFF-QUIK SPECIAL STAIN IS NEGATIVE FOR HELICOBACTER-LIKE ORGANISMS. C. STOMACH, BODY, BIOPSY: GASTRIC BODY MUCOSA WITH MILD CHRONIC GASTRITIS. DIFF-QUIK SPECIAL STAIN IS NEGATIVE FOR HELICOBACTER-LIKE ORGANISMS. D. DISTAL ESOPHAGUS, BIOPSY: SQUAMOUS MUCOSA WITH MILD ACUTE ESOPHAGITIS. PAS FUNGAL STAIN IS NEGATIVE. E. SIGMOID COLON, POLYP, 40 CM, BIOPSY: TUBULAR ADENOMA. F. TERMINAL ILEUM, BIOPSY: ILEAL MUCOSA WITHOUT SIGNIFICANT PATHOLOGIC FINDINGS. G. COLON, RIGHT, BIOPSY: COLONIC MUCOSA WITH SMALL LYMPHOID AGGREGATE. H. TRANSVERSE COLON, LEFT, BIOPSY: COLONIC MUCOSA WITHOUT SIGNIFICANT PATHOLOGIC FINDINGS. I. COLON, RIGHT, BIOPSY: COLONIC MUCOSA WITH SMALL LYMPHOID AGGREGATES. J. SIGMOID COLON, BIOPSY: COLONIC MUCOSA WITHOUT SIGNIFICANT PATHOLOGIC FINDINGS. Electronically Signed Herlinda Menjivra M.D. Gross Description A. Received in formalin, labeled "biopsy duodenum" are 2 vargas, irregular portions of soft tissue measuring 0.2 and 0.3 cm. in greatest dimension. The specimens are submitted in toto in one cassette. B. Received in formalin, labeled "biopsy antrum" are 4 vargas, irregular portions of soft tissue ranging from 0.3-0.4 cm. in greatest dimension. The specimens are submitted in toto in one cassette. C. Received in formalin, labeled "biopsy body of stomach" are 2 vargas, irregular portions of soft tissue measuring 0.3 and 0.6 cm. in greatest dimension. The specimens are submitted in toto in one cassette. D. Received in formalin, labeled "biopsy plaque in distal esophagus" is a vargas, irregular portion of soft tissue measuring 0.3 cm. in greatest dimension. The specimen is submitted in toto in one cassette. E. Received in formalin labeled "polyp sigmoid at 40 cm," is a 0.8 x 0.7 x 0.5 cm vargas, polypoid portion of soft tissue. The base is inked green and the specimen is bisected. The specimen is entirely submitted in one cassette. F. Received in formalin, labeled "biopsy terminal ileum" are 2 vargas, irregular portions of soft tissue averaging 0.3 cm. in greatest dimension. The specimens are submitted in toto in one cassette. G. Received in formalin, labeled "biopsy right colon" is a vargas, irregular portion of soft tissue measuring 0.5 cm. in greatest dimension. The specimen is submitted in toto in one cassette. H. Received in formalin, labeled "biopsy transverse colon" are 2 vargas, irregular portions of soft tissue measuring 0.1 and 0.2 cm. in greatest dimension. The specimens are submitted in toto in one cassette. I. Received in formalin, labeled "biopsy left colon" are 3 vargas, irregular portions of soft tissue ranging from 0.2-0.4 cm. in greatest dimension. The specimens are submitted in toto in one cassette. J. Received in formalin, labeled "biopsy sigmoid" are 3 vargas, irregular portions of soft tissue ranging from 0.2-0.3 cm. in greatest dimension. The specimens are submitted in toto in one cassette. 05/18/2018
== END 2018-05-20 16:48 | disposition home or self-care (01) | DRG 602 ==
LOC: JER 09:37 → JERBED 14:07 → J5S 19:05
PROVIDERS: ADMIT Internal Medicine; ATTEND Internal Medicine
PROC: 30233N1 Transfusion of Nonautologous Red Blood Cells into Peripheral Vein, Percutaneous Approach (ICD-10-PCS; 2018-05-09)
PROC: 0W9B3ZX Drainage of Left Pleural Cavity, Percutaneous Approach, Diagnostic (ICD-10-PCS; principal; 2018-05-12)
PROC: 0DD98ZX Extraction of Duodenum, Via Natural or Artificial Opening Endoscopic, Diagnostic (ICD-10-PCS; 2018-05-18)
PROC: 0DD68ZX Extraction of Stomach, Via Natural or Artificial Opening Endoscopic, Diagnostic (ICD-10-PCS; 2018-05-18)
PROC: 0DDN8ZX Extraction of Sigmoid Colon, Via Natural or Artificial Opening Endoscopic, Diagnostic (ICD-10-PCS; 2018-05-18)
PROC: 0DBN8ZX Excision of Sigmoid Colon, Via Natural or Artificial Opening Endoscopic, Diagnostic (ICD-10-PCS; 2018-05-18)
DX: L03.313 Cellulitis of chest wall (principal); J18.9 Pneumonia, unspecified organism; N39.0 Urinary tract infection, site not specified; D61.818 Other pancytopenia; J90 Pleural effusion, not elsewhere classified; A04.72 Enterocolitis due to Clostridium difficile, not specified as recurrent; L98.498 Non-pressure chronic ulcer of skin of other sites with other specified severity; B95.61 Methicillin susceptible Staphylococcus aureus infection as the cause of diseases classified elsewhere; I12.9 Hypertensive chronic kidney disease with stage 1 through stage 4 chronic kidney disease, or unspecified chronic kidney disease; E10.22 Type 1 diabetes mellitus with diabetic chronic kidney disease; N18.3 Chronic kidney disease, stage 3 (moderate); E78.5 Hyperlipidemia, unspecified; M34.9 Systemic sclerosis, unspecified; L40.9 Psoriasis, unspecified; D64.9 Anemia, unspecified; K29.70 Gastritis, unspecified, without bleeding; R94.5 Abnormal results of liver function studies; K70.0 Alcoholic fatty liver; K59.00 Constipation, unspecified; K22.9 Disease of esophagus, unspecified; B36.9 Superficial mycosis, unspecified; E10.42 Type 1 diabetes mellitus with diabetic polyneuropathy; E03.9 Hypothyroidism, unspecified; E66.9 Obesity, unspecified; Z68.31 Body mass index [BMI] 31.0-31.9, adult; R19.7 Diarrhea, unspecified; E16.0 Drug-induced hypoglycemia without coma; K63.5 Polyp of colon; K64.8 Other hemorrhoids; B96.1 Klebsiella pneumoniae [K. pneumoniae] as the cause of diseases classified elsewhere; T38.3X5A Adverse effect of insulin and oral hypoglycemic [antidiabetic] drugs, initial encounter; R05 Cough; T46.4X5A Adverse effect of angiotensin-converting-enzyme inhibitors, initial encounter; Z87.442 Personal history of urinary calculi; Z79.4 Long term (current) use of insulin; Z85.3 Personal history of malignant neoplasm of breast
CPT/HCPCS: 36415; 36430; 36600; 71045-TC-FY; 71250-TC; 74181-TC; 76942; 80048; 80053; 80076; 81003; 81015; 82042; 82150; 82272; 82607; 82728; 82747; 82803; 82945; 82962; 83036; 83540; 83550; 83605; 83615; 84157; 84439; 84443; 84478; 84484; 85014; 85025; 85027; 85610; 85651; 85730; 86140; 86850; 86900; 86901; 86922; 87040; 87070; 87075; 87086; 87102; 87116; 87186; 87205; 87206; 87210; 87324; 87449; 87493; 88108; 88305-TC; 88341-TC; 89051; 93005; 93010; 93306-TC; 97116-GP; 97161-GP; 99284-25; G0480; J7030; P9038; P9058

== ENCOUNTER 2018-12-24 06:18 | Emergency (ER) | payer OTHER ==
[2018-12-24 06:48] VITALS: BMI 25.2
--- NOTE | 2018-12-24 07:35 | PDOC ---
History of Present Illness <Carlota Archer - Last Filed: 12/24/18 08:47> - General History Source: Patient Exam Limitations: No Limitations - History of Present Illness Initial Comments: 12/24/18 07:28 The patient is a 53F with a PMH of CKD stage III, diabetic Nephropathy, nephrolithiasis, IDDM w/Diabetic neuropathy, hypertension, Hx of Breast CA s/p CTX (2010) and mastectomy, scleroderma, and psoriasis who presents to the ER after taking her DM medication (Tresiba - degludec) and then drinking after. The patient states that she's been taking this medication for 1 month. Tonight, she took her medication and had 2 gin and sugar-free diet tonic's after. She denies any CP, SOB, fever, chills, nausea, vomiting, numbness, tingling, or weakness. <Grady Gonzalez - Last Filed: 12/24/18 09:32> - General Chief Complaint: Blood Sugar Problem Stated Complaint: BLOOD SUGAR PROBLEM Time Seen by Provider: 12/24/18 07:12 Past History <Carlota Archer - Last Filed: 12/24/18 08:47> - Past Medical History Anemia: Yes Asthma: No Cancer: Yes (MAY 2010 LEFT BREAST CA) Cardiac Disorders: No CVA: No COPD: No DVT: No Dementia: No Diabetes: Yes (IDDM MANY YEARS) Dialysis: No GI Disorders: No Disorders: Yes (kidney stones, stent left) HTN: Yes (HX BORDERLINE, NO MEDS) Hypercholesterolemia: No Kidney Stones: No Liver Disease: Yes (fatty liver) Psychiatric Problems: No Seizures: No Thyroid Disease: Yes Lung CA: No - Surgical History Appendectomy: Yes - Immunization History Td Vaccination: No TDAP Vaccination: No Immunization Up to Date: Yes - Suicide/Smoking/Psychosocial Hx Smoking History: Never smoked Have you smoked in the past 12 months: No Number of Cigarettes Smoked Daily: 0 Cigars Per Day: 0 Information on smoking cessation initiated: No Hx Alcohol Use: No Drug/Substance Use Hx: No Substance Use Type: None Hx Substance Use Treatment: No <Grady Gonzalez - Last Filed: 12/24/18 09:32> - Past Medical History Allergies/Adverse Reactions: Allergies Allergy/AdvReac Type Severity Reaction Status Date / Time Sulfa (Sulfonamide Allergy Intermediate Hives Verified 12/24/18 06:41 Antibiotics) [Sulfa(Sulfonamide Antibiotics)] terbinafine HCl Allergy Intermediate Rash Verified 12/24/18 06:41 [From Lamisil] Home Medications: Ambulatory Orders Levothyroxine [Synthroid -] 25 mcg PO DAILY@0700 #30 tablet 06/20/14 Metoprolol Succinate [Toprol XL -] 25 mg PO DAILY 07/19/14 Mauri Cit/Mag/D3/Zn/Business Employment Specialist/Atif/Bor [Citracal-Vit D + Magnesium Tab] 1 each PO DAILY 11/30/17 Ramipril 2.5 mg PO DAILY 05/07/18 Amino Acids/Protein Hydrolys [Prosource No Carb Liquid Pkt] 30 ml PO BID@0800, 1730 #20 packet 05/19/18 Collagenase Clostridium Hist. [Santyl -] 1 applic TP DAILY #10 tube 05/19/18 Insulin (Levemir) [Levemir Vial] 2 units SQ HS #20 units 05/19/18 Insulin (Levemir) [Levemir Vial] 5 units SQ DAILY@0700 #14 units 05/19/18 Pantoprazole Sodium [Protonix -] 20 mg PO DAILY #30 tablet.ec 05/19/18 Collagenase Clostridium Hist. [Santyl] 1 applic TP DAILY #90 oint...g. 08/24/18 Collagenase Clostridium Hist. [Santyl] 1 applic TP DAILY #90 oint...g. 10/16/18 Doxycycline Hyclate 100 mg PO BID 10/16/18 Levofloxacin [Levaquin] 500 mg PO DAILY #7 tablet 10/16/18 Review of Systems - Review of Systems Able to Perform ROS?: Yes Comments:: 12/24/18 07:36 GENERAL/CONSTITUTIONAL: No fever or chills. No weakness. HEAD, EYES, EARS, NOSE AND THROAT: No change in vision. No ear pain or discharge. No sore throat. CARDIOVASCULAR: No chest pain, palpitations, or lightheadedness. RESPIRATORY: No cough, wheezing, shortness of breath, or hemoptysis. GASTROINTESTINAL: No nausea, vomiting, diarrhea, constipation, or abdominal pain. GENITOURINARY: No dysuria, frequency, hematuria, or change in urination. MUSCULOSKELETAL: No joint or muscle swelling or pain. No neck or back pain. SKIN: No rash or lesions. NEUROLOGIC: No headache, numbness, tingling, focal weakness, loss of consciousness, or change in strength/sensation. Is the patient limited Serbian proficient: No <Grady Gonzalez - Last Filed: 12/24/18 09:32> *Physical Exam - Vital Signs Last Vital Signs Temp Pulse Resp BP Pulse Ox 97.7 F 76 18 117/60 100 12/24/18 06:41 12/24/18 06:41 12/24/18 06:41 12/24/18 06:41 12/24/18 06:41 <Carlota Archer - Last Filed: 12/24/18 08:47> - Vital Signs Last Vital Signs Temp Pulse Resp BP Pulse Ox 97.7 F 76 18 117/60 100 12/24/18 06:41 12/24/18 06:41 12/24/18 06:41 12/24/18 06:41 12/24/18 06:41 - Physical Exam Comments: 12/24/18 07:37 GENERAL: Well developed, well nourished. Awake and alert. No acute distress. HEENT: Normocephalic, atraumatic. Hearing grossly normal. Moist mucous membranes. PERRLA, EOMI. No conjunctival pallor. Sclera are non-icteric. NECK: Supple. Full ROM. No JVD. CARDIOVASCULAR: Regular rate and rhythm. No murmurs, rubs, or gallops. PULMONARY: No evidence of respiratory distress. Lungs clear to auscultation bilaterally. No wheezing, rales or rhonchi. ABDOMINAL: Soft. Non-tender. Non-distended. No rebound or guarding. MUSCULOSKELETAL: Wound on b/l hallices. Wound over L breast. Normal range of motion at all joints. No bony deformities or tenderness. EXTREMITIES: No cyanosis. No clubbing. No edema. No calf tenderness or swelling. SKIN: Warm and dry. Normal capillary refill. No rashes. No jaundice. NEUROLOGICAL: Alert, awake, appropriate. Cranial nerves 2-12 grossly intact. Normal speech. Gait is normal without ataxia. PSYCHIATRIC: Cooperative. Good eye contact. Appropriate mood and affect. <Grady Gonzalez - Last Filed: 12/24/18 09:32> Moderate Sedation - Procedure Monitoring Vital Signs: Procedure Monitoring Vital Signs Temperature 97.7 F 12/24/18 06:41 Pulse Rate 76 12/24/18 06:41 Respiratory Rate 18 12/24/18 06:41 Blood Pressure 117/60 12/24/18 06:41 O2 Sat by Pulse Oximetry (%) 100 12/24/18 06:41 <Carlota Archer - Last Filed: 12/24/18 08:47> - Procedure Monitoring Vital Signs: Procedure Monitoring Vital Signs Temperature 97.7 F 12/24/18 06:41 Pulse Rate 76 12/24/18 06:41 Respiratory Rate 18 12/24/18 06:41 Blood Pressure 117/60 12/24/18 06:41 O2 Sat by Pulse Oximetry (%) 100 12/24/18 06:41 <Grady Gonzalez - Last Filed: 12/24/18 09:32> ED Treatment Course - ADDITIONAL ORDERS Additional order review: Laboratory Results 12/24/18 07:23 POC Glucometer 102 12/24/18 07:23 POC Glucometer 102 <Carlota Archer - Last Filed: 12/24/18 08:47> - ADDITIONAL ORDERS Additional order review: Laboratory Results 12/24/18 07:23 POC Glucometer 102 12/24/18 07:23 POC Glucometer 102 <Grady Gonzalez - Last Filed: 12/24/18 09:32> Medical Decision Making - Medical Decision Making 12/24/18 07:37 The patient is a 53F with MMP including diabetes who took her diabetic medications and drank alcohol instead of ate. The patient is alert and oriented in our ER. FS is 102. Giving sandwich and milk and will monitor for recurrent hypoglycemia. 12/24/18 09:28 Repeat FS is 114. I have instructed the patient to continue to eat throughout the day to prevent hypoglycemic episodes. <Grady Gonzalez - Last Filed: 12/24/18 09:32> *DC/Admit/Observation/Transfer <Carlota Archer - Last Filed: 12/24/18 08:47> - Discharge Dispostion Decision to Admit order: No <Grady Gonzalez - Last Filed: 12/24/18 09:32> Diagnosis at time of Disposition: Hypoglycemia - Discharge Dispostion Disposition: HOME Condition at time of disposition: Stable - Referrals Referrals: Denzel Seymour MD [Primary Care Provider] - Jonathon Cormier MD [Staff Physician] - Tay Cormier [Non Staff, Medical] - - Patient Instructions Printed Discharge Instructions: DI for Hypoglycemia Additional Instructions: Please follow up with your primary care physician in 1-2 days. Please continue to eat throughout today and talk to your senior python developer about your diabetes medications. Please return to the ER if you have any signs or symptoms of chest pain, shortness of breath, uncontrollable fever, chills, nausea, vomiting, numbness, tingling, or weakness in any part of your body, changes in vision, or slurred speech. Please take your medications as prescribed. Please return to the ER if symptoms persist, worsen, or new symptoms arise. - Post Discharge Activity
--- NOTE | 2018-12-24 07:51 | PDOC ---
Attending Attestation - Resident Resident Name: Grady Gonzalez - ED Attending Attestation I have performed the following: I have examined & evaluated the patient, The case was reviewed & discussed with the resident, I agree w/resident's findings & plan - HPI HPI: 12/24/18 08:42 Ms. Dixon is a 53 yo female w/ pmh of CKD stage III, IDDM, diabetic nephropathy, nephrolithiasis, HTN, HLD, Breast CA s/p nanda mastectomy, scleroderma, and psoriasis who presents for hypoglycemia. This morning when she woke up at 5AM, she felt shaky and sweaty. She did not eat her meal last night, when she took Truceba and Humalog last night with 2 gin and tonics. FS 40 by EMS when they arrived, given dextrose with improvement to 80. she has taken Truceba for 1 month thus far, relatively new medication for management of her DM. The patient denies chest pain, shortness of breath, headache and dizziness. Denies fever, chills, nausea, vomit, diarrhea and constipation. Denies dysuria, frequency, urgency and hematuria. - Physicial Exam PE: 12/24/18 08:43 NAD, well appearing, alert, oriented to person time and place. PERRL, EOMI, nl conjunctiva, anicteric; neck supple. lungs clear, RRR, abdomen soft nontender. ANDRADE x4, no focal neuro deficits. No peripheral edema. normal color for ethnicity , WWP. +multiple psoriatic plaques on her torso, abdomen, back, extremities. no signs of infection or purulence. speech clear, no slurred speech. - Medical Decision Making 12/24/18 08:44 History of present illness documented Vital signs are reviewed, within normal limits, patient asymptomatic and back to her baseline status, no neurologic changes or derangements, no signs of infection Repeat blood sugar checked here greater than 100. Patient has tolerated milk and sandwich at the bedside without difficulty. monitored in the ED x 2 hours, no acute events. repeated FS during stay 114, appropriate; no recurrent episodes of low glucose. pt not on oral agents or sulfonylurea remains well appearing. no indication for lab testing at this time. no trauma. instructions on insulin use, frequent blood sugar FS checks as well as eating meals with administration of meds caution on new long acting medication, Truciba, which has prolonged duration of up to 24 hours and Precipitate hypoglycemia. Advised to follow-up with her primary care doctor to adjust her insulin regimen given the medication side effects she has experienced thus far. Pt to be discharged in stable condition. Patient and family made aware of impression and plan, return precautions discussed (including but not limited to worsening pain or symptoms), fevers, or signs of infection, chest pain, respiratory distress, inability to tolerate oral intake, dehydration, syncope, or neurologic changes). Follow up with PMD and psychology fellow- Dr Cormier - as recommended, follow up information provided, take medications as instructed for duration of time. continue with supportive care, avoid triggers and precipitants. All questions answered to patient's satisfaction and expressed understanding and comfort with this. Patient does not suffer from an acute life- threatening medical condition at this time she is safe for outpatient follow- up. 12/24/18 08:47 12/24/18 09:49
[2018-12-24 09:43] VITALS: BP 139/71; PULSE 68; TEMP 98.1
== END 2018-12-24 10:03 | disposition home or self-care (01) ==
LOC: JER 06:18
DX: E11.649 Type 2 diabetes mellitus with hypoglycemia without coma (principal); Z79.4 Long term (current) use of insulin; I12.9 Hypertensive chronic kidney disease with stage 1 through stage 4 chronic kidney disease, or unspecified chronic kidney disease; E11.22 Type 2 diabetes mellitus with diabetic chronic kidney disease; N18.3 Chronic kidney disease, stage 3 (moderate); M34.9 Systemic sclerosis, unspecified; E03.9 Hypothyroidism, unspecified; D64.9 Anemia, unspecified; Z87.442 Personal history of urinary calculi; Z96.0 Presence of urogenital implants; Z85.3 Personal history of malignant neoplasm of breast; Z90.12 Acquired absence of left breast and nipple
CPT/HCPCS: 82962; 99283-25

== ENCOUNTER 2019-03-19 10:06 | Inpatient (IN) | payer OTHER | END 2019-03-26 14:39 | LOC: J6S 03-22 18:47 → JER 10:06 → JERBED 14:19 → J6S 18:51 ==

== ENCOUNTER 2019-04-10 13:36 | Inpatient (IN) | payer OTHER ==
--- NOTE | 2019-04-10 14:32 | PDOC ---
History of Present Illness - General Chief Complaint: Lightheaded Stated Complaint: NEAR SYNCOPE Time Seen by Provider: 04/10/19 14:25 History Source: Patient Exam Limitations: No Limitations - History of Present Illness Initial Comments: 04/10/19 14:28 53YOF with h/o IDDM with nephropathy, CKD stage III, nephrolithiasis, HTN, HLD, anemia (requiring xfusion x4-5 times since 2009, follows with hematology), obesity, hypothyroidism, breast CA s/p bilateral mastectomy, scleroderma, and psoriasis who was driven here by her significant other for pre-syncope at about 1:30 pm today. She explains she was feeling mildly lightheaded all day which worsened slightly when she went to get a blood draw this afternoon. She had a new-syncopal episode several minutes after the blood draw while she was walking out of the laboratory building. She notes getting blurry vision but had no pain , palpitations, n/t/w focally, or other symptoms and feels slightly lightheaded now but no longer pre-syncopal. Her drove her here because they were already in their car across the street; she states otherwise she would have called 911. She states this happens occasionally when she is about to get sick with a URI or UTI or other illness. She took her FSBG to be in the 180s just before getting the blood draw. She feels more pale than normal lately. Past History - Past Medical History Allergies/Adverse Reactions: Allergies Allergy/AdvReac Type Severity Reaction Status Date / Time Sulfa (Sulfonamide Allergy Intermediate Hives Verified 03/19/19 10:19 Antibiotics) [Sulfa(Sulfonamide Antibiotics)] terbinafine HCl Allergy Intermediate Rash Verified 03/19/19 10:19 [From Lamisil] Home Medications: Ambulatory Orders Levothyroxine [Synthroid -] 25 mcg PO DAILY@0700 #30 tablet 06/20/14 Metoprolol Succinate [Toprol XL -] 25 mg PO DAILY 07/19/14 Mauri/D3/Mag11/Zinc/Plant Attendant Or Assistant Operator/Atif/Bor [Caltrate 600+D Plus Tablet] 1 each PO DAILY Furosemide 40 mg PO DAILY 03/19/19 Insulin Lispro [Humalog] 100 unit SQ AC 03/19/19 Mupirocin Ointment [Bactroban Ointment (For Decolonization) -] 1 applic TP DAILY 03/19/19 Omeprazole 20 mg PO DAILY 03/19/19 Heparin - 5,000 unit SQ BID vial 03/26/19 Insulin Sliding Scale [Novolog Vial Sliding Scale -] 1 vial SQ TIDAC units Loratadine [Claritin -] 10 mg PO DAILY tablet 03/26/19 Patient's Own Medication [Patient's Own Med (Nf) -] 3 each SQ DAILY@0700 med Triamcinolone 0.1% Lotion [Aristocort 0.1% Lotion -] 1 applic TP BID lotion Anemia: Yes Asthma: No Cancer: Yes (MAY 2010 LEFT BREAST CA) Cardiac Disorders: No CVA: No COPD: No DVT: No Dementia: No Diabetes: Yes (IDDM MANY YEARS) Dialysis: No GI Disorders: No Disorders: Yes (kidney stones, stent left) HTN: Yes (HX BORDERLINE, NO MEDS) Hypercholesterolemia: No Kidney Stones: No Liver Disease: Yes (fatty liver) Psychiatric Problems: No Seizures: No Thyroid Disease: Yes Lung CA: No - Surgical History Appendectomy: Yes - Immunization History Td Vaccination: No TDAP Vaccination: No Immunization Up to Date: Yes - Suicide/Smoking/Psychosocial Hx Smoking History: Never smoked Have you smoked in the past 12 months: No Number of Cigarettes Smoked Daily: 0 Cigars Per Day: 0 Information on smoking cessation initiated: No Hx Alcohol Use: No Drug/Substance Use Hx: No Substance Use Type: None Hx Substance Use Treatment: No Review of Systems - Review of Systems Able to Perform ROS?: Yes Comments:: 04/10/19 15:34 GEN: no fever, chills, malaise, generalized weakness, or weight change HEENT: no ear pain, sore throat, vision change, or eye pain CV: lightheadedness, pre-syncope, no chest pain, palpitations, syncope, or edema RESP: no cough, wheezing, or SOB GI: no abdominal pain, nausea, vomiting, diarrhea, constipation, or white/black/ bloody stool : no dysuria, hematuria, incontinence, retention, bleeding, or discharge MSK: no neck/back pain, muscle weakness/pain, or joint swelling/pain NEURO: no headache, seizure, vertigo, numbness, tingling, or focal weakness PSYCH: no substance use, no behavior change SKIN: pale, no jaundice, no rash ROS otherwise negative except as noted in HPI *Physical Exam - Vital Signs Last Vital Signs Temp Pulse Resp BP Pulse Ox 98.3 F 78 16 126/52 L 97 04/10/19 13:42 04/10/19 13:42 04/10/19 13:42 04/10/19 13:42 04/10/19 13:42 - Physical Exam Comments: 04/10/19 15:35 GENERAL: very pleasant, a bit chronically ill-appearing and pale, A/Ox4, no distress, answers questions appropriately HEENT: +conjunctival pallor, PERRLA, EOMI, moist mucous membranes NECK/BACK: no midline ttp, no spinal stepoff or deformity, no hematoma, full ROM , neck supple CARDIOVASCULAR: regular rate/rhythm, normal S1S2, no MGR, strong peripheral pulses, capillary refill <2 seconds, extremities wwp, 1+ pitting edema BLE LUNGS/RESPIRATORY: no respiratory distress, CTAB GI/ABDOMEN: symmetric [id number], normoactive BS, soft, no ttp, no midline pulsatile masses : no CVA tenderness EXTREMITIES: no muscle atrophy, no acute deformity SKIN: pallor, mild redness and excoriations to anterior tibial overlying skin without e/o infection, warm and dry, no jaundice, no bruising NEUROLOGICAL: GCS 15, CN II-XII grossly intact, 5/5 strength proximally and distally, no facial droop Heart Score/ECG Review #1 04/10/19 15:10 NSR, rate 78, normal axis and intervals, low voltage, TWI in aVL ED Treatment Course - LABORATORY CBC & Chemistry Diagram: 04/10/19 15:30 04/10/19 15:30 Medical Decision Making - Medical Decision Making 04/10/19 15:38 53YOF with multiple comorbidities p/w abrupt transient near-LOC with, followed by spontaneous recovery, consistent with presyncope. Initial Vital Signs Temp Pulse Resp BP Pulse Ox 98.3 F 78 16 126/52 L 97 04/10/19 13:42 04/10/19 13:42 04/10/19 13:42 04/10/19 13:42 04/10/19 13:42 Exam: As noted in Physical Exam section. DDX IBNLT: anemia/hypovolemia, reflex (neurocardiogenic e.g. vasovagal; situational e.g. micturition/post-tussive/post-exercise; carotid sinus hypersensitivity), cardiovascular (arrhythmia e.g. sick sinus syndrome, conduction abnormality e.g. SVT/WPW/[place]rugada/long QT/ventricular dysrhythmia, structural heart disease e.g. valvular disease/HOCM/left atrial myxoma/WV; PE; cardiac tamponade), orthostatic hypotension (volume depletion e.g. hemorrhage/ vomiting/diarrhea/diuretics; drugs e.g. vasodilators/aatcm-2-kghrqorn, autonomic failure e.g. DM neuropathy/Parkinsons), much less likely to be d/t other causes not true syncope d/t subsequent neuro deficit (TIA/CVA, SAH, seizure, metabolic/electrolyte derangement e.g. DM/DKA tend to cause gradual slide into unconsciousness), infection/sepsis/vitals abnormalities, etc. W/U ordered: EKG CBCD CMP Mg Cardiac Panel Coags TS UA UCx TX ordered: IVF gently EKG: Reviewed; results as noted in ECG Review section. CXR: Nothing acute Laboratory Tests 04/10/19 04/10/19 04/10/19 15:30 15:30 15:30 WBC 3.8 L RBC 3.30 L Hgb 10.3 L Hct 31.3 L MCV 94.7 MCH 31.3 MCHC 33.0 RDW 16.2 H MPV 7.2 L Absolute Neuts (auto) 2.4 Neutrophils % 61.4 Lymphocytes % 21.5 Monocytes % 9.5 Eosinophils % 6.7 H Basophils % 0.9 Nucleated RBC % 0 PT with INR 11.10 INR 0.94 Sodium 137 Potassium 5.2 H Chloride 102 Carbon Dioxide 23 Anion Gap 12 BUN 19.3 H Creatinine 1.8 H Est GFR (CKD-EPI)AfAm 36.60 Est GFR (CKD-EPI)NonAf 31.58 Random Glucose 151 H Calcium 7.7 L Magnesium 1.5 L Total Bilirubin 0.5 AST 32 ALT 17 Alkaline Phosphatase 318 H Creatine Kinase 62 Troponin I 0.08 H Total Protein 6.1 L Albumin 2.5 L Reassessment: Exam unchanged 04/10/19 17:57 We have been unable to get UA sample from the patient - has CKD. Per [place]hart Syncope Rule: Pt is high risk for ventricular dysrhythmia and/ or . Pt also at higher risk given their older age and comorbidities. Her troponin is 0.08 and she must be r/o for ACS as she does not tend to have elevated troponin. The Pt is unsafe for discharge at this time. They require further hospital observation, workup, and treatment. Microblog sent to [facility] for admission. Blank Decision to Admit order is placed per ED protocol. 04/10/19 18:[address] Bill; patient will be admitted to Dr. Oswald on the Decision to Admit per Dr. Bill's request. Decision to Admit order corrected as such. Repeat Troponin and EKG ordered. *DC/Admit/Observation/Transfer Diagnosis at time of Disposition: Near syncope, Elevated troponin, Lightheadedness - Discharge Dispostion Condition at time of disposition: Guarded Decision to Admit order: Yes - Referrals Referrals: Denzel Seymour MD [Primary Care Provider] - - Patient Instructions - Post Discharge Activity
--- NOTE | 2019-04-10 14:36 | PDOC ---
Documentation entered by Armida Cabrera SCRIBE, acting as scribe for Melchor Dunaway MD. Melchor Dunaway MD: This documentation has been prepared by the Rick santana Sammi, SCRIBE, under my direction and personally reviewed by me in its entirety. I confirm that the documentation accurately reflects all work, treatment, procedures, and medical decision making performed by me. Attending Attestation - Resident Resident Name: Alicia Gallegos - ED Attending Attestation I have performed the following: I have examined & evaluated the patient, The case was reviewed & discussed with the resident, I agree w/resident's findings & plan, Exceptions are as noted - HPI HPI: 04/10/19 15:44 The patient is a 53 year old female, with a significant PMH of CKD stage III, IDDM, diabetic nephropathy, nephrolithiasis, HTN, HLD, Breast CA s/p nanda mastectomy, scleroderma, and psoriasis, who presents to the emergency department for evaluation of a pre-syncope episode. The patient states she was at [facility] for blood work when she felt faint while walking to her car. The patient reports trouble walking and increased weakness over the past several weeks. She notes swollen bilateral legs which are giving her some discomfort. The patient also reports mild SOB and cough that she states may be due to allergies. Of note, patient has history of fainting with low blood pressure and anemia. The patient denies chest pain, shortness of breath, headache and dizziness. Denies fever, chills, nausea, vomit, diarrhea and constipation. Denies dysuria, frequency, urgency and hematuria. Allergies: Sulfa, terbinafine PCP: Dr. Seymour - Physicial Exam PE: 04/10/19 15:46 Vitals: Triage vital signs reviewed General Appearance: No acute distress, well nourished, well developed Head: Atraumatic Neck: Supple; No nuchal rigidity Chest Wall: Nontender Cardiac: Regular rate and rhythm, no murmurs, no rubs, no gallops Lungs: Clear to auscultation bilateral, good air movement bilaterally Extremities: (+)3+ pittng edema bilateral lower extremities. Skin: (+)mild erythema to bilateral shins. Warm and dry Neuro: AOX3; Cranial Nerves 2-12 grossly intact, Strength intact to all extremities, Sensation intact to all extremities Psych: Normal mood, normal affect - Medical Decision Making 04/10/19 16:41 53 years old with significant past medical history presents with presyncopal episode. History of anemia in the past CK D diabetes diabetic neuropathy We'll check labs EKG observe and reassess Dr. Marshall to follow-up labs. Heart Score/ECG Review - ECG Impressions Comment:: 04/10/19 16:42 EKG performed at 1510 demonstrates normal sinus rhythm low voltage QRS
[2019-04-10 15:51] LABS: BASO % 0.9 % (0-2.0); EOS % 6.7 % (0-4.5); HEMATOCRIT 31.3 % (32.4-45.2); HEMOGLOBIN 10.3 GM/dL (10.7-15.3); LYMPH % 21.5 % (8-40); MCH 31.3 pg (25.7-33.7); MEAN CELL VOLUME 94.7 fl (80-96); MEAN PLT VOLUME 7.2 fl (7.5-11.1); MONO % 9.5 % (3.8-10.2); NEUT % 61.4 % (42.8-82.8); RDW 16.2 % (11.6-15.6); WHITE BLOOD COUNT 3.8 K/mm3 (4.0-10.0)
[2019-04-10 16:15] LABS: ALBUMIN 2.5 g/dl (3.4-5.0); BILIRUBIN,TOTAL 0.5 mg/dL (0.2-1); BLOOD UREA NITROGEN 19.3 mg/dL (7-18); CALCIUM 7.7 mg/dL (8.5-10.1); CREATININE 1.8 mg/dL (0.55-1.3); MAGNESIUM 1.5 mg/dL (1.8-2.4); POTASSIUM 5.2 mmol/L (3.5-5.1); TOT PROT 6.1 g/dl (6.4-8.2)
[2019-04-10 16:26] LABS: INR 0.94 (0.83-1.09); PROTHROMBIN TIME (PATIENT) 11.1 SEC (9.7-13.0)
[2019-04-10 18:02] LABS: PLATELET COUNT 177 K/MM3 (134-434)
[2019-04-10 18:18] LABS: PLATELET ESTIMATE ADEQUATE
[2019-04-10] MEDS ORDERED: DEXTROSE 50%-WATER 25 GM/50 ML DISP.SYRIN ONE (19:26)
[2019-04-10] MEDS ORDERED: DEXTROSE 50%-WATER - 25 GM/50 ML VIAL IVPUSH ONE (19:31)
[2019-04-10] MEDS ORDERED: ALBUTEROL SO4 2.5/IPRATROPIUM 0.5 INH SOL 3 ML VIAL.NEB. NEB ONE (21:53)
[2019-04-10] MEDS: ALBUTEROL SO4 2.5/IPRATROPIUM 0.5 INH SOL 3 ML VIAL.NEB. NEB PRN (22:00)
--- NOTE | 2019-04-11 01:05 | HP ---
Admitting History and Physical - Primary Care Physician PCP: Denzel Seymour - Admission Chief Complaint: Near Syncope History of Present Illness: This is a 53 y/o woman with a PMHx of HTN, HLD, IDDM, Anemia, CKD, Nephrolithasis, UTIs, Scleroderma, Psoriasis, Breast Ca s/p Bilateral Mastectomy. Who presents to the ED for near syncope. Patient reports that she was at [facility] for blood work when she felt faint while walking to her car. The patient reports having trouble walking with increased weakness over the past several weeks. She reports having bilateral leg edema, which are giving her some discomfort. The patient also reports mild SOB and a cough which she attributes to allergies. Of note, patient has a history of fainting with low blood pressure and anemia. Patient denies chest pain, palpitations. Patient denies fever, chills, N/V/D and constipation. Patient denies dysuria, frequency , urgency and hematuria. History Source: Patient Limitations to Obtaining History: No Limitations - Past Medical History REGIONAL GUIDE: Yes: Peripheral Neuropathy (walks with a walker) Cardiovascular: Yes: HTN Gastrointestinal: Yes: Constipation Renal/: Yes: Renal Calculi, UTI ...LMP: 04/17/10 Heme/Onc: Yes: Cancer (Breast cancer ) Rheumatology: Yes: Other (Scleroderma,psoriasis) Endocrine: Yes: Diabetes Mellitus Dermatology: Yes: Psoriasis, Other (scleroderma) - Past Surgical History Past Surgical History: Yes: Appendectomy, , Mastectomy (Bilateral) - Smoking History Smoking history: Never smoked Have you smoked in the past 12 months: No Aproximately how many cigarettes per day: 0 - Alcohol/Substance Use Hx Alcohol Use: No History of Substance Use: reports: None - Social History ADL: Family Assistance Occupation: Unemployed History of Recent Travel: No Home Medications - Allergies Allergies/Adverse Reactions: Allergies Allergy/AdvReac Type Severity Reaction Status Date / Time Sulfa (Sulfonamide Allergy Intermediate Hives Verified 03/19/19 10:19 Antibiotics) [Sulfa(Sulfonamide Antibiotics)] terbinafine HCl Allergy Intermediate Rash Verified 03/19/19 10:19 [From Lamisil] - Home Medications Home Medications: Ambulatory Orders Levothyroxine [Synthroid -] 25 mcg PO DAILY@0700 #30 tablet 06/20/14 Metoprolol Succinate [Toprol XL -] 25 mg PO DAILY 07/19/14 Mauri/D3/Mag11/Zinc/Busgirl/Atif/Bor [Caltrate 600+D Plus Tablet] 1 each PO DAILY Omeprazole 20 mg PO DAILY 03/19/19 Insulin Lispro [Humalog] 0 unit SQ AC 04/10/19 Family Disease History - Family Disease History Family Disease History: CA: Grandparent (paternal grandmother --colon ca// maternal grandmother --breast cancer), Father (colon cancer; had kidney stones) , Mother (; also was on dialysis; had no diabetes), Other: Sister (kidney stones younger sister, colon polyps) Physical Examination Vital Signs: Vital Signs Temperature 98.3 F 04/10/19 19:06 Pulse Rate 85 04/10/19 19:06 Respiratory Rate 20 04/10/19 20:04 Blood Pressure 158/74 04/10/19 19:06 O2 Sat by Pulse Oximetry (%) 96 04/10/19 19:47 Labs: CBC, BMP 04/10/19 15:30 04/10/19 15:30 Problem List - Problems (1) Near syncope Assessment/Plan: Likely secondary to Arrhythmia vs Vaso Vagal Continue cardiac monitoring Appreciate Cardiology consult Carotid Doppler in am Echo Serial Enzymes Fall Precautions Monitor CBC, BMP Code(s): R55 - SYNCOPE AND COLLAPSE (2) Elevated troponin Assessment/Plan: Likely demand ischemia Serial Enzymes Continue cardiac monitoring Appreciate Cardiology consult EKG-reviewed Code(s): R74.8 - ABNORMAL LEVELS OF OTHER SERUM ENZYMES (3) Acute renal failure superimposed on chronic kidney disease Assessment/Plan: stable Cr 1.8 Baseline 0.8-2.6 Will continue to monitor and treat with interventions accordingly Code(s): N17.9 - ACUTE KIDNEY FAILURE, UNSPECIFIED; N18.9 - CHRONIC KIDNEY DISEASE, UNSPECIFIED (4) Anemia Assessment/Plan: Stable Hgb 10.3 Will transfuse if Hgb < 7.0 Monitor vitals Code(s): D64.9 - ANEMIA, UNSPECIFIED Qualifiers: Anemia type: unspecified type Qualified Code(s): D64.9 - Anemia, unspecified (5) Diabetes Assessment/Plan: BGMs ISS D50 given in ED secondary to BGM 30's- patient reports taking her insulin in am Monitor BMP Code(s): E11.9 - TYPE 2 DIABETES MELLITUS WITHOUT COMPLICATIONS (6) Hypertension Assessment/Plan: Stable Monitor BP Continue home meds with parameters Monitor renal function Code(s): I10 - ESSENTIAL (PRIMARY) HYPERTENSION (7) Hypothyroid Assessment/Plan: Stable Continue Levothyroxine TSH in am Code(s): E03.9 - HYPOTHYROIDISM, UNSPECIFIED (8) Scleroderma Code(s): M34.9 - SYSTEMIC SCLEROSIS, UNSPECIFIED Assessment/Plan This is a 53 y/o woman with a PMHx of HTN, HLD, CKD, IDDM, CKD, Anemia, Nephrolithiasis, UTIs, Sceleroderma, Psoriasis, Breast Ca s/p Bilateral Mastectomy. Placed in Telemetry Observation for Near Syncope, Elevated Troponin for further evaluation of their emergent condition. Plan: See Problem FEN PO fluids as tolerated Replete lytes prn Low Na, Diabetic Diet DVT ppx OOB SCDs Dispo: Observation Visit type - Emergency Visit Emergency Visit: Yes ED Registration Date: 04/10/19 Care time: The patient presented to the Emergency Department on the above date and was hospitalized for further evaluation of their emergent condition. - New Patient This patient is new to me today: Yes Date on this admission: 04/10/19 - Critical Care Critical Care patient: No
[2019-04-11 03:26] VITALS: BMI 26.2
[2019-04-11 07:23] LABS: BASO % 0.8 % (0-2.0); HEMATOCRIT 29.6 % (32.4-45.2); LYMPH % 28.9 % (8-40); MCH 31.5 pg (25.7-33.7); MCHC 33.6 g/dl (32.0-36.0); MEAN CELL VOLUME 93.6 fl (80-96); MEAN PLT VOLUME 7.3 fl (7.5-11.1); MONO % 12.5 % (3.8-10.2); NEUT % 51.8 % (42.8-82.8); RBC 3.16 M/mm3 (3.60-5.2); RDW 16.1 % (11.6-15.6); WHITE BLOOD COUNT 3.7 K/mm3 (4.0-10.0)
[2019-04-11] MEDS ORDERED: LEVOTHYROXINE NA 75 MCG TABLET (FP) PO ONE (07:27)
[2019-04-11 07:40] LABS: INR 0.99 (0.83-1.09); PROTHROMBIN TIME (PATIENT) 11.7 SEC (9.7-13.0)
[2019-04-11 07:52] LABS: BLOOD UREA NITROGEN 20.8 mg/dL (7-18); CALCIUM 7.5 mg/dL (8.5-10.1); CREATININE 1.7 mg/dL (0.55-1.3); MAGNESIUM 1.5 mg/dL (1.8-2.4); PHOSPHOROUS 4.6 mg/dL (2.5-4.9); POTASSIUM 5.2 mmol/L (3.5-5.1)
--- NOTE | 2019-04-11 08:28 | EKG ---
Test Reason : Blood Pressure : / mmHG Vent. Rate : 082 BPM Atrial Rate : 082 BPM P-R Int : 136 ms QRS Dur : 078 ms QT Int : 460 ms P-R-T Axes : 000 012 109 degrees QTc Int : 537 ms POOR DATA QUALITY, INTERPRETATION MAY BE ADVERSELY AFFECTED SINUS RHYTHM WITH PREMATURE SUPRAVENTRICULAR COMPLEXES LOW VOLTAGE QRS NONSPECIFIC ST AND T WAVE ABNORMALITY ABNORMAL ECG WHEN COMPARED WITH ECG OF 10-APR-2019 15:10, PREMATURE SUPRAVENTRICULAR COMPLEXES ARE NOW PRESENT Confirmed by QUEENIE GAYTAN, JESUS ([id number]) on 04/11/2019 8:28:22 AM Referred By: Confirmed By:JESUS JEROME MD
--- NOTE | 2019-04-11 08:30 | EKG ---
Test Reason : Blood Pressure : / mmHG Vent. Rate : 078 BPM Atrial Rate : 078 BPM P-R Int : 128 ms QRS Dur : 082 ms QT Int : 462 ms P-R-T Axes : 021 -17 102 degrees QTc Int : 526 ms POOR DATA QUALITY, INTERPRETATION MAY BE ADVERSELY AFFECTED NORMAL SINUS RHYTHM LOW VOLTAGE QRS CANNOT RULE OUT ANTERIOR INFARCT (CITED ON OR BEFORE 11-JUN-2014) T WAVE ABNORMALITY, CONSIDER LATERAL ISCHEMIA ABNORMAL ECG WHEN COMPARED WITH ECG OF 19-MAR-2019 11:53, QUESTIONABLE CHANGE IN INITIAL FORCES OF ANTERIOR LEADS QT HAS LENGTHENED Confirmed by QUEENIE GAYTAN, JESUS ([id number]) on 04/11/2019 8:30:34 AM Referred By: Confirmed By:JESUS JEROME MD
[2019-04-11] MEDS: FUROSEMIDE 20 MG TABLET (FP) PO SCH (10:40)
[2019-04-11] MEDS: metoPROLOL SUCCINATE 25 MG TAB.SR.24H (FP) PO SCH (10:41)
[2019-04-11] MEDS: INSULIN SLIDING SCALE (NOVOLOG) 1 VIAL SQ SCH ×3 (12:14→21:48)
--- NOTE | 2019-04-11 13:29 | PN ---
Progress Note (short form) - Note Progress Note: pt seen/ examined chart reviewed awake/ comfortable feels better denies cp/sob/abd pain denies dizziness Vital Signs Temp 98.6 F 04/11/19 09:00 Pulse 88 04/11/19 09:00 Resp 22 H 04/11/19 09:00 BP 135/70 04/11/19 09:00 Pulse Ox 96 04/11/19 00:15 Intake & Output 04/10/19 04/11/19 04/11/19 23:59 11:59 23:59 Intake Total 130 Balance 130 Weight 140 lb 134 lb Intake: IV 10 saline lock 10 Oral 120 Other: Voiding Method Incontinent Diaper # Unmeasured Voids Void 1 Height 4 ft 7 in 5 ft Body Mass Index (BMI) 32.5 26.2 Weight Measurement Method Standing Scale Weight Measurement Method Est/Stated by Patient Active Medications Albuterol/Ipratropium (Duoneb -) 1 amp NEB Q6H PRN PRN Reason: SHORTNESS OF BREATH Last Admin: 04/10/19 22:00 Dose: 1 amp Furosemide (Lasix -) 20 mg PO DAILY [facility] Last Admin: 04/11/19 10:40 Dose: 20 mg Insulin Aspart (Novolog Vial Sliding Scale -) 1 vial SQ ACHS [facility]; Protocol Last Admin: 04/11/19 12:14 Dose: Not Given Levothyroxine Sodium (Synthroid -) 75 mcg PO DAILY@0700 [facility] Metoprolol Succinate (Toprol Xl -) 25 mg PO DAILY [facility] Last Admin: 04/11/19 10:41 Dose: 25 mg CBC, BMP 04/11/19 05:40 04/11/19 05:40 Physical Exam awake/ comfortable S1 S2 regular Lungs clear No pallor Abd-soft, non tender + edema Neuro- a0 x3 PLAN stable monitor on tele dont appear cardiac cardiology to follow monitor bgm will follow Problem List - Problems (1) Elevated troponin Code(s): R74.8 - ABNORMAL LEVELS OF OTHER SERUM ENZYMES (2) Lightheadedness Code(s): R42 - DIZZINESS AND GIDDINESS (3) Near syncope Code(s): R55 - SYNCOPE AND COLLAPSE (4) Anemia in chronic kidney disease Code(s): N18.9 - CHRONIC KIDNEY DISEASE, UNSPECIFIED; D63.1 - ANEMIA IN CHRONIC KIDNEY DISEASE
[2019-04-11 13:38] LABS: PLATELET COUNT 210 K/MM3 (134-434)
--- NOTE | 2019-04-11 14:52 | CON.CARD ---
Consult Consult Specialty:: Cardiology Referred by:: Dr. Oswald Reason for Consultation:: Near syncope - History of Present Illness Chief Complaint: lightheadedness, near syncope History of Present Illness: 53 year old woman with a pmh HTN, DMII, HLD, CKD, Anemia, Scleroderma, Breast CA s/p b/l mastectomy admitted with dizziness, near syncope, gen weakness. Pt seen and examined today in [facility]. she states that she has been feeling generalized weakness for several weeks with associated difficulty ambulating. states she went to have blood drawn yesterday and when walking back to the car felt lightheaded and thought she might pass out. she sat down and felt better without LOC. SHe states that she has had episodes of syncope and near syncope since an early age especially just prior to getting sick with a UTI or URI. States she has had cardiac testing in the past including echo and stress test approximately 4 years ago that were normal. She has occasional L shoulder pain but no chest pain. She reports mild sob which she believes is due to allergies. no current chest pain or sob. No palpitations prior to this event. 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 breast cancer--2009. 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 s/p bilateral mastectomies/axillary lymphadenectomy. s/p RT to Lt. chestwall. s/p adjuvant chemotherapy - Past Surgical History Past Surgical History: Yes: Appendectomy, , Mastectomy (Bilateral) - Alcohol/Substance Use Hx Alcohol Use: No History of Substance Use: reports: None - Smoking History Smoking history: Never smoked Have you smoked in the past 12 months: No Aproximately how many cigarettes per day: 0 - Social History ADL: Family Assistance Occupation: Unemployed History of Recent Travel: No Home Medications - Allergies Allergies/Adverse Reactions: Allergies Allergy/AdvReac Type Severity Reaction Status Date / Time Sulfa (Sulfonamide Allergy Intermediate Hives Verified 03/19/19 10:19 Antibiotics) [Sulfa(Sulfonamide Antibiotics)] terbinafine HCl Allergy Intermediate Rash Verified 03/19/19 10:19 [From Lamisil] - Home Medications Home Medications: Ambulatory Orders Levothyroxine [Synthroid -] 25 mcg PO DAILY@0700 #30 tablet 06/20/14 Metoprolol Succinate [Toprol XL -] 25 mg PO DAILY 07/19/14 Mauri/D3/Mag11/Zinc/Carton Maker/Atif/Bor [Caltrate 600+D Plus Tablet] 1 each PO DAILY Omeprazole 20 mg PO DAILY 03/19/19 Insulin Lispro [Humalog] 0 unit SQ AC 04/10/19 Family Disease History - Family Disease History Family Disease History: CA: Grandparent (paternal grandmother --colon ca// maternal grandmother --breast cancer), Father (colon cancer; had kidney stones) , Mother (; also was on dialysis; had no diabetes), Other: Sister (kidney stones younger sister, colon polyps) Review of Systems - Review of Systems Constitutional: reports: Lethargy, Malaise, Weakness. denies: No Symptoms, Chills, Diaphoresis, Fever, Loss of Appetite, Night Sweats, Unintentional Wgt. Loss, Other Eyes: denies: No Symptoms, Blind Spots, Blurred Vision, Double Vision, Eye Pain , Floaters, Photophobia, Recent Change in Vision, Other HENT: denies: No Symptoms, Difficult Swallowing, Ear Discharge, Ear Pain, Epistaxis, Gingival Bleeding, Hearing Loss, Mouth Swelling, Nasal Congestion, Ocular Prosthesis, Throat Pain, Toothache, Ringing in Ears, Other Neck: denies: No Symptoms, Decreased ROM, Lumps, Pain on Movement, Stiffness, Swollen Glands, Tenderness, Other Cardiovascular: reports: Palpitations, Shortness of Breath. denies: No Symptoms , Chest Pain, Edema, Other Respiratory: reports: SOB, SOB on Exertion. denies: No Symptoms, Cough, Exercise Intolerance, Hemoptysis, Orthopnea, PND, Snoring, Wheezing, Other Gastrointestinal: denies: No Symptoms, Abdominal Pain, Bloating, Constipation, Diarrhea, Dysphagia, Indigestion, Melena, Nausea, Rectal Bleeding, Vomiting, Vomiting Blood, Other Genitourinary: denies: No Symptoms, Burning, Discharge, Dysuria, Flank Pain, Frequency, Hematuria, Incontinence, Lesions, Menses, Pain, Testicular Mass, Testicular Pain, Testicular Swelling, Urgency, Vaginal Bleeding, Other Breasts: denies: No Symptoms Reported, See HPI, Breast Implants, Discharge from Nipple, Lumps, Pain, Skin Changes, Other Musculoskeletal: reports: Muscle Weakness Integumentary: denies: No Symptoms, Blister, Bruising, Change in Color, Eczema, Erythema, Incision, Lesions, Lump, Pallor, Pruritis, Rash, Wound, Other Neurological: reports: Dizziness. denies: No Symptoms, Change in LOC, Change in Speech, Confusion, Headache, Incoordination, Numbness, Parasthesia, Pre- Existing Deficit, Seizure, Syncope, Tremors, Unsteady Gait, Weakness, Other Endocrine: denies: No Symptoms, Excessive Sweating, Flushing, Increased Hunger, Increased Thirst, Intolerance to Cold, Intolerance to Heat, Unexplained Weight Gain, Unexplained Weight Loss, Other Hematology/Lymphatic: denies: No Symptoms, Easily Bruised, Excessive Bleeding, Swollen Glands, Other Psychiatric: denies: No Symptoms, Altered Sleep Pattern, Anxiety, Depression, Hallucinations, Panic, Paranoia, Suicidal, Other - Risk Factors Known Risk Factors: Yes: Diabetes Mellitus, Hypercholesterolemia, Hypertension Vital Signs: Vital Signs Temperature 98.3 F 04/11/19 13:00 Pulse Rate 87 04/11/19 13:00 Respiratory Rate 20 04/11/19 13:00 Blood Pressure 139/78 04/11/19 13:00 O2 Sat by Pulse Oximetry (%) 96 04/11/19 00:15 Constitutional: Yes: No Distress, Calm Eyes: Yes: Conjunctiva Clear, EOM Intact, PERRL HENT: Yes: Atraumatic, Normocephalic Neck: Yes: Supple, Trachea Midline Respiratory: Yes: Regular, CTA Bilaterally. No: Rales, Rhonchi, Wheezes Gastrointestinal: Yes: Normal Bowel Sounds, Soft Cardiovascular: Yes: Regular Rate and Rhythm. No: Bradycardia, Tachycardia, Pulse Irregular, Gallop, Rub, Varicosities JVD: No Carotid Bruit: No PMI: Non-Displaced Heart Sounds: Yes: S1, S2. No: Split S2, S3, S4, Clicks, Gallop, Rub, Bruit Murmur: No: Systolic Murmur, Diastolic Murmur Musculoskeletal: Yes: Muscle Weakness Edema: LLE: Trace, RLE: Trace Peripheral Pulses WNL: Yes Peripheral Pulses: 2+ Left Doralis Pedis, 2+ Right Dorsalis Pedis Neurological: Yes: Alert, Oriented Psychiatric: Yes: Alert, Oriented - Other Data Labs, Other Data: CBC, BMP 04/11/19 05:40 04/11/19 05:40 INR, PTT INR 0.99 (0.83-1.09) 04/11/19 05:40 Troponin, BNP 04/10/19 04/10/19 04/11/19 15:30 19:00 01:00 Troponin I 0.08 H 0.09 H 0.07 H Troponin, BNP 04/10/19 04/10/19 04/11/19 15:30 19:00 01:00 Troponin I 0.08 H 0.09 H 0.07 H ekg-nsr 82bpm with apcs, nsst Imaging - Results Chest X-ray: Report Reviewed, Image Reviewed EKG: Report Reviewed, Image Reviewed Other: Report Reviewed, Image Reviewed (tele-no sig events recorded) Assessment/Plan 53 year old woman with a pmh HTN, DMII, HLD, CKD, Anemia, Scleroderma, Breast CA s/p b/l mastectomy admitted with dizziness, near syncope, gen weakness.she states that she has been feeling generalized weakness for several weeks with associated difficulty ambulating. states she went to have blood drawn yesterday and when walking back to the car felt lightheaded and thought she might pass out. she sat down and felt better without LOC. SHe states that she has had episodes of syncope and near syncope since an early age especially just prior to getting sick with a UTI or URI. States she has had cardiac testing in the past including echo and stress test approximately 4 years ago that were normal. She has occasional L shoulder pain but no chest pain. She reports mild sob which she believes is due to allergies. no current chest pain or sob. No palpitations prior to this event. Lightheadedness/Near syncope -does not appear to correspond with a cardiac event. -Trop minimally elevated and did not trend up. (ck level not done to correspond with trop), not c/w ACS -no need to continue checking cardiac enzymes -no ischemia on ekg, no chest pain -no arrhythmias recorded on tele -no significant murmurs on exam -pt has had generalized weakness for several weeks, has had syncope in the past which she states corresponds with prior illnesses ie UTI -unlikely an arrhythmia -echo was ordered, fup result -cont tele for now -does not require an ischemic evaluation at this time.
[2019-04-11 15:48] LABS: EPI CELLS 6.7 /HPF (0-5/HPF); HYALINE CASTS 66 /lpf (0-8); URINE APPEARANCE CLOUDY; URINE BACTERIA 55.7 /hpf (NEGATIVE); URINE BILIRUBIN NEGATIVE (NEGATIVE); URINE COLOR YELLOW; URINE GLUCOSE (UA) NEGATIVE (NEGATIVE); URINE KETONE 1+ (NEGATIVE); URINE LEUK ESTERASE 2+ (NEGATIVE); URINE NITRITE NEGATIVE (NEGATIVE); URINE PROTEIN 2+ (NEGATIVE); URINE WBC 177 /hpf (0-5)
[2019-04-11 16:35] LABS: URINE RBC 11.7 /hpf (0-4)
[2019-04-11 16:36] LABS: YEAST NONE SEEN (NEGATIVE)
[2019-04-12] MEDS: INSULIN SLIDING SCALE (NOVOLOG) 1 VIAL SQ SCH ×4 (05:59→21:02)
[2019-04-12] MEDS: LEVOTHYROXINE NA 75 MCG TABLET (FP) PO SCH (06:01)
[2019-04-12] MEDS ORDERED: TRESIBA INSULIN SQ SCH (07:00)
[2019-04-12] MEDS ORDERED: LEVOTHYROXINE NA 75 MCG TABLET (FP) PO SCH (07:00)
[2019-04-12] MEDS: metoPROLOL SUCCINATE 25 MG TAB.SR.24H (FP) PO SCH (09:43)
[2019-04-12] MEDS: FUROSEMIDE 20 MG TABLET (FP) PO SCH (09:44)
--- NOTE | 2019-04-12 12:11 | PN ---
Progress Note (short form) - Note Progress Note: pt seen/ examined low grade temp feels weak today but no distress +ve dysurea culture- contaminated Vital Signs Temp 99.2 F 04/12/19 08:25 Pulse 87 04/12/19 08:25 Resp 20 04/12/19 08:25 BP 151/76 04/12/19 08:25 Pulse Ox 95 04/12/19 05:00 Intake & Output 04/11/19 04/12/19 04/12/19 23:59 11:59 23:59 Intake Total 310 500 Balance 310 500 Intake: IV 10 10 saline lock 10 10 Oral 300 490 Other: Voiding Method Diaper Diaper # Unmeasured Voids Void 2 2 Bowel Movement No No Active Medications Albuterol/Ipratropium (Duoneb -) 1 amp NEB Q6H PRN PRN Reason: SHORTNESS OF BREATH Last Admin: 04/10/19 22:00 Dose: 1 amp Furosemide (Lasix -) 20 mg PO DAILY [facility] Last Admin: 04/12/19 09:44 Dose: 20 mg Ceftriaxone Sodium 1 gm/ (Dextrose) 100 mls @ 200 mls/hr IVPB DAILY [facility]; Protocol Insulin Aspart (Novolog Vial Sliding Scale -) 1 vial SQ ACHS [facility]; Protocol Last Admin: 04/12/19 12:00 Dose: Not Given Levothyroxine Sodium (Synthroid -) 37.5 mcg PO DAILY@0700 [facility] Last Admin: 04/12/19 06:01 Dose: 37.5 mcg Metoclopramide HCl (Reglan -) 10 mg PO TIDAC [facility] Metoprolol Succinate (Toprol Xl -) 25 mg PO DAILY [facility] Last Admin: 04/12/19 09:43 Dose: 25 mg Non-Formulary Med ( (Tresiba Insulin)) 2 each SQ AM [facility] CBC, BMP 04/11/19 05:40 04/11/19 05:40 Microbiology 04/11/19 15:10 Urine Culture - Final Urine - Urine Clean Catch Contaminated: Please Repeat Physical Exam awake/ comfortable S1 S2 regular Lungs clear No pallor Abd-soft, non tender + edema Neuro- a0 x3 PLAN Ceftriaxone empirically Resend culture f/u labs daily oob- chair Reglan before meals will follow Problem List - Problems (1) Elevated troponin Code(s): R74.8 - ABNORMAL LEVELS OF OTHER SERUM ENZYMES (2) Lightheadedness Code(s): R42 - DIZZINESS AND GIDDINESS (3) Near syncope Code(s): R55 - SYNCOPE AND COLLAPSE (4) Anemia in chronic kidney disease Code(s): N18.9 - CHRONIC KIDNEY DISEASE, UNSPECIFIED; D63.1 - ANEMIA IN CHRONIC KIDNEY DISEASE
--- NOTE | 2019-04-12 12:53 | ECHO ---
Name: CATHRYN KHAN Exam:Adult Echocardiogram Study Date: 04/12/2019 09:04 AM Age: 53 yrs Reason For Study: pre syncope Height: 60 in Weight: 134 lb BSA: 1.6 m2 MMode/2D Measurements & Calculations IVSd: 0.85 cm Ao root diam: 2.0 cm LVIDd: 4.6 cm LA dimension: 2.9 cm LVIDs: 3.3 cm LVPWd: 0.92 cm LVPWs: 1.4 cm EDV(Teich): 99.7 ml ESV(Teich): 43.3 ml LVOT diam: 1.4 cm RV S Pradip: 4.6 cm/sec Doppler Measurements & Calculations MV E max pradip: 97.7 cm/sec Ao V2 max: 87.5 cm/sec MV A max pradip: 46.9 cm/sec Ao max P.1 mmHg MV E/A: 2.1 Ao V2 mean: 56.4 cm/sec MV dec time: 0.14 sec Ao mean P.5 mmHg Ao V2 VTI: 17.5 cm HALIE(I,D): 0.67 cm2 HALIE(V,D): 0.86 cm2 LV V1 max P.90 mmHg MR max pradip: 365.5 cm/sec LV V1 mean P.37 mmHg MR max P.5 mmHg LV V1 max: 47.4 cm/sec LV V1 mean: 28.2 cm/sec LV V1 VTI: 7.3 cm SV(LVOT): 11.7 ml TR max pradip: 317.1 cm/sec TR max P.2 mmHg PA V2 max: 65.0 cm/sec Med Peak E' Pradip: 3.0 cm/sec PA max P.7 mmHg Med E/e': 32.3 Lat Peak E' Pradip: 8.7 cm/sec Lat E/e': 11.3 Procedure The study was technically limited with all images being suboptimal in quality. Left Ventricle The left ventricle is normal in size. Left ventricular systolic function is moderate to severely redu rody. Ejection Fraction = 30-35%. Diastolic dysfunction, Grade II (pseudonormalization pattern). Right Ventricle The right ventricle is normal size. The right ventricular systolic function is mild to moderately red uced. Atria Normal left and right atrial size and function. Mitral Valve The mitral valve is not well visualized. There is mild mitral regurgitation. Tricuspid Valve The tricuspid valve is not well visualized. There is Trace to mild tricuspid regurgitation. Right porfirio tricular systolic pressure is elevated at 40-50mmHg. Aortic Valve The aortic valve is not well visualized. No aortic regurgitation is present. Pulmonic Valve The pulmonic valve is not well visualized. Trace pulmonic valvular regurgitation. Great Vessels The aortic root is normal size. Pericardium/Pleura There is a pleural effusion present. Pleural mass seen, r/o recurrent malignancy given h/o breast can cer s/p mastectomy s/p XRT and chemotherapy. Interpretation Summary In comparison to previous study performed 05/14/2018, LV fxn has decreased and pleural effusion and m ass is now seen. Clinical correlation recommended. Clinical team has been informed. There is mild mitral regurgitation. The left ventricle is normal in size. Trace pulmonic valvular regurgitation. Diastolic dysfunction, Grade II (pseudonormalization pattern). Ejection Fraction = 30-35%. The right ventricle is normal size. The right ventricular systolic function is mild to moderately reduced. There is Trace to mild tricuspid regurgitation. Pleural mass seen, r/o recurrent malignancy given h/o breast cancer s/p mastectomy s/p XRT and chemot herapy In comparison to previous study performed 05/14/2018, LV fxn has decreased and pleural effusion and m ass is now seen. Clinical correlation recommended. Clinical team has been informed. Grady Mott MD 04/12/2019 12:52 PM
[2019-04-12] MEDS ORDERED: DEXTROSE 5%-WATER - 50 ML IVPB ONE (13:12)
[2019-04-12] MEDS ORDERED: cefTRIAXone SODIUM 1 GM VIAL ONE (13:12)
[2019-04-12] MEDS: CEFTRIAXONE 1 GM in DEXTROSE 5%-WATER - 50 ML IVPB SCH (13:18)
--- NOTE | 2019-04-12 15:16 | PN ---
Progress Note, Physician Chief Complaint: Near syncope SOB History of Present Illness: This is a 53 year old female with a PMH of HTN, DM2, HLD, CKD, Anemia, Scleroderma, and breast ca s/p bilateral mastectomy. She was admitted on 04/10/19 with generalized fatigue, dizziness and near syncope. An echocardiogram was performed 04/12/19: TDS The LV systolic function is moderately reduced The EF was 30 - 35% RV is mild to moderately reduced Mild MR Mild TR RVSP ~ 45 mmHg There is a pleural effusion present. A Pleural mass is seen. 04/12/19 Low grade temp, worsening dyspnea - Current Medication List Current Medications: Active Medications Albuterol/Ipratropium (Duoneb -) 1 amp NEB Q6H PRN PRN Reason: SHORTNESS OF BREATH Last Admin: 04/10/19 22:00 Dose: 1 amp Furosemide (Lasix -) 20 mg PO DAILY [facility] Last Admin: 04/12/19 09:44 Dose: 20 mg Ceftriaxone Sodium 1 gm/ (Dextrose) 50 mls @ 100 mls/hr IVPB DAILY [facility]; Protocol Last Admin: 04/12/19 13:18 Dose: 100 mls/hr Insulin Aspart (Novolog Vial Sliding Scale -) 1 vial SQ ACHS [facility]; Protocol Last Admin: 04/12/19 12:00 Dose: Not Given Levothyroxine Sodium (Synthroid -) 37.5 mcg PO DAILY@0700 [facility] Last Admin: 04/12/19 06:01 Dose: 37.5 mcg Metoclopramide HCl (Reglan -) 10 mg PO TIDAC [facility] Metoprolol Succinate (Toprol Xl -) 25 mg PO DAILY [facility] Last Admin: 04/12/19 09:43 Dose: 25 mg Non-Formulary Med ( (Tresiba Insulin)) 2 each SQ AM [facility] - Objective Vital Signs: Vital Signs Temperature 99.2 F 04/12/19 08:25 Pulse Rate 87 04/12/19 08:25 Respiratory Rate 20 04/12/19 08:25 Blood Pressure 151/76 04/12/19 08:25 O2 Sat by Pulse Oximetry (%) 95 04/12/19 05:00 Constitutional: Yes: Mild Distress HENT: Yes: WNL Neck: Yes: WNL Cardiovascular: Yes: Regular Rate and Rhythm (NL S1S2, no MRHG) Respiratory: Yes: Dullness (Bibasilar RT > LT) Extremities: Yes: WNL Edema: LLE: Trace, RLE: Trace Neurological: Yes: Alert, Oriented Labs: CBC, BMP 04/11/19 05:40 04/11/19 05:40 INR, PTT INR 0.99 (0.83-1.09) 04/11/19 05:40 Assessment/Plan This is a 53 year old female with a PMH of HTN, DM2, HLD, CKD, Anemia, Scleroderma, and breast ca s/p bilateral mastectomy. She was admitted on 04/10/19 with generalized fatigue, dizziness and near syncope. An echocardiogram was performed 04/12/19: TDS The LV systolic function is moderately reduced The EF was 30 - 35% RV is mild to moderately reduced Mild MR Mild TR RVSP ~ 45 mmHg There is a pleural effusion present. A Pleural mass is seen. Low grade temp, worsening dyspnea The above echocardiogram findings could represent a recurrence of her previous malignancy. Would consider further imaging such as a chest CT and a diagnostic/therapeutic tap. Will follow with you.
[2019-04-12] MEDS: METOCLOPRAMIDE HCL 10 MG TABLET (FP) PO SCH (15:55)
[2019-04-13] MEDS: INSULIN SLIDING SCALE (NOVOLOG) 1 VIAL SQ SCH ×4 (06:22→23:15)
[2019-04-13] MEDS: LEVOTHYROXINE NA 75 MCG TABLET (FP) PO SCH (06:29)
[2019-04-13] MEDS: METOCLOPRAMIDE HCL 10 MG TABLET (FP) PO SCH ×3 (06:30→16:50)
[2019-04-13 08:33] LABS: ALBUMIN 2.2 g/dl (3.4-5.0); BILIRUBIN,TOTAL 0.5 mg/dL (0.2-1); BLOOD UREA NITROGEN 21.8 mg/dL (7-18); CALCIUM 8.1 mg/dL (8.5-10.1); CREATININE 1.5 mg/dL (0.55-1.3); POTASSIUM 5.5 mmol/L (3.5-5.1); TOT PROT 5.9 g/dl (6.4-8.2)
[2019-04-13 08:45] LABS: BASO % 0.8 % (0-2.0); EOS % 7.2 % (0-4.5); HEMATOCRIT 33.6 % (32.4-45.2); HEMOGLOBIN 11.2 GM/dL (10.7-15.3); LYMPH % 23.7 % (8-40); MCH 31.8 pg (25.7-33.7); MCHC 33.4 g/dl (32.0-36.0); MEAN CELL VOLUME 95.4 fl (80-96); MEAN PLT VOLUME 7.7 fl (7.5-11.1); MONO % 11.8 % (3.8-10.2); NEUT % 56.5 % (42.8-82.8); PLATELET COUNT 157 K/MM3 (134-434); RBC 3.52 M/mm3 (3.60-5.2); RDW 16.2 % (11.6-15.6); WHITE BLOOD COUNT 3.7 K/mm3 (4.0-10.0)
[2019-04-13] MEDS ORDERED: DEXTROSE 5%-WATER - 50 ML IVPB ONE (10:12)
[2019-04-13] MEDS ORDERED: cefTRIAXone SODIUM 1 GM VIAL ONE (10:12)
[2019-04-13] MEDS: CEFTRIAXONE 1 GM in DEXTROSE 5%-WATER - 50 ML IVPB SCH (10:20)
[2019-04-13] MEDS: metoPROLOL SUCCINATE 25 MG TAB.SR.24H (FP) PO SCH (10:21)
[2019-04-13] MEDS: FUROSEMIDE 20 MG TABLET (FP) PO SCH (10:21)
--- NOTE | 2019-04-13 11:12 | PN ---
Progress Note, Physician History of Present Illness: seen and examined today in [facility]. states she is feeling a little better today. still mild sob and dry cough. no new complaints. no overnight events. - Current Medication List Current Medications: Active Medications Albuterol/Ipratropium (Duoneb -) 1 amp NEB Q6H PRN PRN Reason: SHORTNESS OF BREATH Last Admin: 04/10/19 22:00 Dose: 1 amp Furosemide (Lasix -) 20 mg PO DAILY [facility] Last Admin: 04/13/19 10:21 Dose: 20 mg Ceftriaxone Sodium 1 gm/ (Dextrose) 50 mls @ 100 mls/hr IVPB DAILY [facility]; Protocol Last Admin: 04/13/19 10:20 Dose: 100 mls/hr Insulin Aspart (Novolog Vial Sliding Scale -) 1 vial SQ ACHS [facility]; Protocol Last Admin: 04/13/19 06:22 Dose: 2 units Levothyroxine Sodium (Synthroid -) 37.5 mcg PO DAILY@0700 [facility] Last Admin: 04/13/19 06:29 Dose: 37.5 mcg Metoclopramide HCl (Reglan -) 10 mg PO TIDAC [facility] Last Admin: 04/13/19 10:21 Dose: 10 mg Metoprolol Succinate (Toprol Xl -) 25 mg PO DAILY [facility] Last Admin: 04/13/19 10:21 Dose: 25 mg Non-Formulary Med ( (Tresiba Insulin)) 2 each SQ AM [facility] - Objective Vital Signs: Vital Signs Temperature 98.6 F 04/13/19 05:45 Pulse Rate 93 H 04/13/19 05:45 Respiratory Rate 18 04/13/19 09:00 Blood Pressure 144/92 04/13/19 05:45 O2 Sat by Pulse Oximetry (%) 96 04/13/19 09:00 Constitutional: Yes: No Distress, Calm Eyes: Yes: Conjunctiva Clear, EOM Intact HENT: Yes: Atraumatic, Normocephalic Neck: Yes: Supple, Trachea Midline Cardiovascular: Yes: Regular Rate and Rhythm, S1, S2. No: Bradycardia, Tachycardia, Pulse Irregular, Bruit, JVD, Gallop, Murmur, Rub, S3, S4, Varicosities Respiratory: Yes: Regular, Diminished, On Nasal O2, Rhonchi, SOB Gastrointestinal: Yes: Normal Bowel Sounds, Soft. No: Distention, Tenderness Edema: Yes Edema: LLE: Trace, RLE: Trace Peripheral Pulses WNL: Yes Peripheral Pulses: Left Doralis Pedis: 2+, Right Dorsalis Pedis: 2+ Neurological: Yes: Alert, Oriented Psychiatric: Yes: Alert, Oriented Labs: CBC, BMP 04/13/19 07:40 04/13/19 07:40 INR, PTT INR 0.99 (0.83-1.09) 04/11/19 05:40 - ....Imaging Chest X-ray: Report Reviewed, Image Reviewed EKG: Report Reviewed, Image Reviewed Other: Report Reviewed, Image Reviewed (tele-nsr, apcs, no sig arrhythmias) Assessment/Plan This is a 53 year old female with a PMH of HTN, DM2, HLD, CKD, Anemia, Scleroderma, and breast ca s/p bilateral mastectomy. She was admitted on 04/10/19 with generalized fatigue, dizziness and near syncope. Dizziness/near syncope/generalized fatigue -uncertain etiology -does not appear cardiac in origin -no sig events on tele since admission Cardiomyopathy -troponin mildly elevated on admission with normal CK level -not c/w ACS -unknown source of cardiomyopathy ischemic vs non-ischemic (ie related to malignancy) echocardiogram 04/12/19: TDS The LV systolic function is moderately reduced The EF was 30 - 35% RV is mild to moderately reduced Mild MR Mild TR RVSP ~ 45 mmHg There is a pleural effusion present. A Pleural mass is seen. Low grade temp, worsening dyspnea -could represent a recurrence of her previous malignancy. -chest CT is planned and consider diagnostic/therapeutic tap. -will consider ischemic evaluation after malignancy work up is completed
--- NOTE | 2019-04-13 11:51 | PN ---
Progress Note (short form) - Note Progress Note: has cough and congestion -- greenish phlegm, no chest pain Vital Signs - 24 hr 04/12/19 04/12/19 04/13/19 17:00 21:00 02:00 Temperature 98.6 F 98.1 F 98.4 F Pulse Rate 87 82 83 Respiratory 20 20 18 Rate Blood Pressure 152/92 141/86 131/71 O2 Sat by Pulse 96 Oximetry (%) 04/13/19 04/13/19 05:45 09:00 Temperature 98.6 F Pulse Rate 93 H Respiratory 18 18 Rate Blood Pressure 144/92 O2 Sat by Pulse 96 Oximetry (%) Current Medications Generic Name Dose Route Start Last Admin Trade Name Freq PRN Reason Stop Dose Admin Albuterol/Ipratropium 1 amp 04/10/19 21:51 04/10/19 22:00 Duoneb - NEB 1 amp Q6H PRN Administration SHORTNESS OF BREATH Furosemide 20 mg 04/11/19 10:00 04/13/19 10:21 Lasix - PO 20 mg DAILY [facility] Administration Ceftriaxone Sodium 1 gm/ 50 mls @ 100 mls/hr 04/12/19 12:15 04/13/19 10:20 Dextrose IVPB 100 mls/hr DAILY [facility] Administration Protocol Insulin Aspart 1 vial 04/11/19 11:00 04/13/19 06:22 Novolog Vial Sliding Scale - SQ 2 units ACHS [facility] Administration Protocol Levothyroxine Sodium 37.5 mcg 04/12/19 07:00 04/13/19 06:29 Synthroid - PO 37.5 mcg DAILY@0700 [facility] Administration Metoclopramide HCl 10 mg 04/12/19 16:30 04/13/19 10:21 Reglan - PO 10 mg TIDAC [facility] Administration Metoprolol Succinate 25 mg 04/11/19 10:00 04/13/19 10:21 Toprol Xl - PO 25 mg DAILY [facility] Administration Non-Formulary Med ( 2 each 04/12/19 07:00 Tresiba Insulin) SQ AM [facility] Laboratory Results - last 24 hr 04/12/19 04/12/19 04/12/19 11:59 17:23 20:56 WBC RBC Hgb Hct MCV MCH MCHC RDW Plt Count MPV Absolute Neuts (auto) Neutrophils % Lymphocytes % Monocytes % Eosinophils % Basophils % Nucleated RBC % Sodium Potassium Chloride Carbon Dioxide Anion Gap BUN Creatinine Est GFR (CKD-EPI)AfAm Est GFR (CKD-EPI)NonAf POC Glucometer 216 226 249 Random Glucose Calcium Total Bilirubin AST ALT Alkaline Phosphatase Total Protein Albumin 04/13/19 04/13/19 04/13/19 06:07 07:40 07:40 WBC 3.7 L RBC 3.52 L Hgb 11.2 Hct 33.6 MCV 95.4 MCH 31.8 MCHC 33.4 RDW 16.2 H Plt Count 157 D MPV 7.7 Absolute Neuts (auto) 2.1 Neutrophils % 56.5 Lymphocytes % 23.7 Monocytes % 11.8 H Eosinophils % 7.2 H Basophils % 0.8 Nucleated RBC % 0 Sodium 137 Potassium 5.5 H Chloride 104 Carbon Dioxide 22 Anion Gap 12 BUN 21.8 H Creatinine 1.5 H Est GFR (CKD-EPI)AfAm 45.62 Est GFR (CKD-EPI)NonAf 39.36 POC Glucometer 277 Random Glucose 238 H Calcium 8.1 L Total Bilirubin 0.5 AST 19 ALT 12 L Alkaline Phosphatase 278 H Total Protein 5.9 L Albumin 2.2 L Physical Exam awake/ comfortable S1 S2 regular Lungs clear No pallor Abd-soft, non tender + edema Neuro- a0 x3 PLAN Ceftriaxone empirically Resend culture urine f/u labs echo noted-- has a pleural mass-- ordered CT chest monitor renal function PT eval daily oob- chair Reglan before meals will follow Problem List - Problems (1) Pleural mass Code(s): J94.9 - PLEURAL CONDITION, UNSPECIFIED (2) Elevated troponin Code(s): R74.8 - ABNORMAL LEVELS OF OTHER SERUM ENZYMES (3) Lightheadedness Code(s): R42 - DIZZINESS AND GIDDINESS (4) Near syncope Code(s): R55 - SYNCOPE AND COLLAPSE (5) Acute renal failure superimposed on chronic kidney disease Code(s): N17.9 - ACUTE KIDNEY FAILURE, UNSPECIFIED; N18.9 - CHRONIC KIDNEY DISEASE, UNSPECIFIED (6) Anemia Code(s): D64.9 - ANEMIA, UNSPECIFIED
--- NOTE | 2019-04-13 14:21 | CONSULT ---
Consult Consult Specialty:: Endocrinology Referred by:: Dr Oswald Reason for Consultation:: Hyperglycemia - History of Present Illness Chief Complaint: Near Syncope History of Present Illness: This is a 53 y/o woman with h/o HTN, HLD, T1DM since age 4, very sensitive to Insulin, Anemia, CKD, Nephrolithasis, UTIs, Scleroderma, Psoriasis, Breast Ca s/ p Bilateral Mastectomy who presented to the ED for near syncope. Patient reported that she was at [facility] for blood work when she felt faint while walking to her car. The patient reported having trouble walking with increased weakness over the past several weeks. She reported having bilateral leg edema, which has improved since hospitalization. Pt referred for management of hyperglycemia. BGM at home 150 to 180s since last discharge from hospital. Lowest BGM 60s at home. Was 38 in the hospital the day of admission. Was lat to eat in ED. Takes Tresiba 2 units daily at short acting Insulin 2 to 3 units TID with meals. - History Source History Provided By: Patient, Medical Record - Past Medical History PROTOZOOLOGIST: Yes: Peripheral Neuropathy (walks with a walker) Cardio/Vascular: Yes: HTN, Hyperlipdemia Gastrointestinal: Yes: Constipation Renal/: Yes: Renal Calculi, UTI ...LMP: 04/17/10 ...: No Rheumatology: Yes: Other (Scleroderma,psoriasis) Endocrine: Yes: Diabetes Mellitus Dermatology: Yes: Psoriasis, Other (scleroderma) Additional Medical History: h/o Lt. breast cancer--2009. 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 s/p bilateral mastectomies/axillary lymphadenectomy. s/p RT to Lt. chestwall. s/p adjuvant chemotherapy - Past Surgical History Past Surgical History: Yes: Appendectomy, , Mastectomy (Bilateral) - Alcohol/Substance Use Hx Alcohol Use: No History of Substance Use: reports: None - Smoking History Smoking history: Never smoked Have you smoked in the past 12 months: No Aproximately how many cigarettes per day: 0 - Social History ADL: Family Assistance Occupation: Unemployed History of Recent Travel: No Home Medications - Allergies Allergies/Adverse Reactions: Allergies Allergy/AdvReac Type Severity Reaction Status Date / Time Sulfa (Sulfonamide Allergy Intermediate Hives Verified 03/19/19 10:19 Antibiotics) [Sulfa(Sulfonamide Antibiotics)] terbinafine HCl Allergy Intermediate Rash Verified 03/19/19 10:19 [From Lamisil] - Home Medications Home Medications: Ambulatory Orders Levothyroxine [Synthroid -] 25 mcg PO DAILY@0700 #30 tablet 06/20/14 Metoprolol Succinate [Toprol XL -] 25 mg PO DAILY 07/19/14 Mauri/D3/Mag11/Zinc/Clinical Registered Nurse/Atif/Bor [Caltrate 600+D Plus Tablet] 1 each PO DAILY Omeprazole 20 mg PO DAILY 03/19/19 Insulin Lispro [Humalog] 0 unit SQ AC 04/10/19 Family Disease History - Family Disease History Family Disease History: CA: Grandparent (paternal grandmother --colon ca// maternal grandmother --breast cancer), Father (colon cancer; had kidney stones) , Mother (; also was on dialysis; had no diabetes), Other: Sister (kidney stones younger sister, colon polyps) Review of Systems - Review of Systems Constitutional: reports: No Symptoms Eyes: reports: No Symptoms HENT: reports: No Symptoms Neck: reports: No Symptoms Cardiovascular: reports: No Symptoms Respiratory: reports: Cough, SOB on Exertion Gastrointestinal: reports: No Symptoms Genitourinary: reports: Other (Polyuria) Integumentary: reports: No Symptoms Neurological: reports: No Symptoms Endocrine: reports: No Symptoms Physical Exam Vital Signs: Vital Signs Temperature 98.3 F 04/13/19 10:00 Pulse Rate 92 H 04/13/19 10:00 Respiratory Rate 20 04/13/19 10:00 Blood Pressure 149/90 04/13/19 10:00 O2 Sat by Pulse Oximetry (%) 96 04/13/19 09:00 Constitutional: Yes: No Distress, Calm Eyes: Yes: Conjunctiva Clear, EOM Intact HENT: Yes: Atraumatic, Normocephalic Neck: Yes: Supple, Trachea Midline, Other (decreased BS L>rt) Cardiovascular: Yes: Regular Rate and Rhythm Respiratory: Yes: Regular, Other (Decreased BS L>R) Gastrointestinal: Yes: Normal Bowel Sounds, Soft Extremities: Yes: WNL Edema: Yes Neurological: Yes: Alert, Oriented Labs: CBC, BMP 04/13/19 07:40 04/13/19 07:40 Imaging - Results Chest X-ray: Report Reviewed EKG: Report Reviewed Assessment/Plan AP: T1DM Hypothyroidism Cough H/O Breast Ca Continue Tresiba 2 units daily Change Novolog Coverage Ceftriaxone Will F/U
[2019-04-14] MEDS: METOCLOPRAMIDE HCL 10 MG TABLET (FP) PO SCH ×3 (06:09→17:10)
[2019-04-14] MEDS: INSULIN SLIDING SCALE (NOVOLOG) 1 VIAL SQ SCH ×4 (06:09→21:43)
[2019-04-14] MEDS: LEVOTHYROXINE NA 75 MCG TABLET (FP) PO SCH (06:10)
[2019-04-14 08:18] LABS: BASO % 0.8 % (0-2.0); EOS % 9.5 % (0-4.5); HEMATOCRIT 27.2 % (32.4-45.2); HEMOGLOBIN 9.2 GM/dL (10.7-15.3); LYMPH % 18.3 % (8-40); MCH 31.7 pg (25.7-33.7); MCHC 33.8 g/dl (32.0-36.0); MEAN PLT VOLUME 7.5 fl (7.5-11.1); MONO % 13.2 % (3.8-10.2); NEUT % 58.2 % (42.8-82.8); PLATELET COUNT 153 K/MM3 (134-434); RBC 2.89 M/mm3 (3.60-5.2); RDW 15.9 % (11.6-15.6); WHITE BLOOD COUNT 2.8 K/mm3 (4.0-10.0)
--- NOTE | 2019-04-14 09:07 | PN ---
Progress Note (short form) - Note Progress Note: No new complaints Still with cough Blood sugar fluctuating No hypos Vital Signs Period Temp Pulse Resp BP Sys/Sibley Pulse Ox Last 24 Hr 98.3 F-99 F 87-102 20-20 114-155/59-90 96 PE: AOx3 Neck: Supple, No JVD HEENT: PERRL, EOMI Lungs: Decreased BS L<Rt CVS: S1S2 Abd: Benign Ext: +edema CMP Sodium 137 mmol/L (136-145) 04/13/19 07:40 Potassium 5.5 mmol/L (3.5-5.1) H 04/13/19 07:40 Chloride 104 mmol/L (98-107) 04/13/19 07:40 Carbon Dioxide 22 mmol/L (21-32) 04/13/19 07:40 Anion Gap 12 MMOL/L (8-16) 04/13/19 07:40 BUN 21.8 mg/dL (7-18) H 04/13/19 07:40 Creatinine 1.5 mg/dL (0.55-1.3) H 04/13/19 07:40 Est GFR (CKD-EPI)AfAm 45.62 04/13/19 07:40 Est GFR (CKD-EPI)NonAf 39.36 04/13/19 07:40 POC Glucometer 200 UNITS (80-120) 04/14/19 06:04 Random Glucose 238 mg/dL (74-106) H 04/13/19 07:40 Calcium 8.1 mg/dL (8.5-10.1) L 04/13/19 07:40 Phosphorus 4.6 mg/dL (2.5-4.9) 04/11/19 05:40 Magnesium 1.5 mg/dL (1.8-2.4) L 04/11/19 05:40 Total Bilirubin 0.5 mg/dL (0.2-1) 04/13/19 07:40 AST 19 U/L (15-37) 04/13/19 07:40 ALT 12 U/L (13-61) L 04/13/19 07:40 Alkaline Phosphatase 278 U/L (45-117) H 04/13/19 07:40 Creatine Kinase 62 U/L (26-192) 04/10/19 15:30 Troponin I 0.07 ng/ml (0.00-0.05) H 04/11/19 01:00 Total Protein 5.9 g/dl (6.4-8.2) L 04/13/19 07:40 Albumin 2.2 g/dl (3.4-5.0) L 04/13/19 07:40 Triglycerides 167 mg/dL (0-150) H 04/11/19 05:40 Cholesterol 165 mg/dL (50-200) 04/11/19 05:40 Total LDL Cholesterol 67 mg/dL (5-100) 04/11/19 05:40 HDL Cholesterol 85 mg/dL (40-60) H 04/11/19 05:40 TSH 9.08 uIU/ml (0.358-3.74) H 04/11/19 05:40 Current Medications Generic Name Dose Route Start Last Admin Trade Name Freq PRN Reason Stop Dose Admin Albuterol/Ipratropium 1 amp 04/10/19 21:51 04/10/19 22:00 Duoneb - NEB 1 amp Q6H PRN Administration SHORTNESS OF BREATH Furosemide 20 mg 04/11/19 10:00 04/13/19 10:21 Lasix - PO 20 mg DAILY TERESITA Administration Ceftriaxone Sodium 1 gm/ 50 mls @ 100 mls/hr 04/12/19 12:15 04/13/19 10:20 Dextrose IVPB 100 mls/hr DAILY TERESITA Administration Protocol Insulin Aspart 1 vial 04/13/19 16:30 04/14/19 06:09 Novolog Vial Sliding Scale - SQ 1 unit TIDAC TERESITA Administration Protocol Insulin Aspart 1 vial 04/13/19 22:00 04/13/19 23:15 Novolog Vial Sliding Scale - SQ 3 units HS TERESITA Administration Protocol Levothyroxine Sodium 37.5 mcg 04/12/19 07:00 04/14/19 06:10 Synthroid - PO 37.5 mcg DAILY@0700 TERESITA Administration Metoclopramide HCl 10 mg 04/12/19 16:30 04/14/19 06:09 Reglan - PO 10 mg TIDAC TERESITA Administration Metoprolol Succinate 25 mg 04/11/19 10:00 04/13/19 10:21 Toprol Xl - PO 25 mg DAILY TERESITA Administration Non-Formulary Med ( 2 each 04/12/19 07:00 Tresiba Insulin) SQ AM TERESITA AP: T1DM Hypothyroidism Cough H/O Breast Ca Increase Tresiba 3 units daily Novolog Coverage Increase LT4 50mcg Qd Ceftriaxone Will F/U
[2019-04-14 09:08] LABS: ALBUMIN 1.9 g/dl (3.4-5.0); BILIRUBIN,TOTAL 0.3 mg/dL (0.2-1); BLOOD UREA NITROGEN 21.9 mg/dL (7-18); CALCIUM 7.5 mg/dL (8.5-10.1); CREATININE 1.5 mg/dL (0.55-1.3); POTASSIUM 4.8 mmol/L (3.5-5.1); TOT PROT 4.9 g/dl (6.4-8.2)
[2019-04-14] MEDS ORDERED: DEXTROSE 5%-WATER - 50 ML IVPB ONE (09:33)
[2019-04-14] MEDS ORDERED: cefTRIAXone SODIUM 1 GM VIAL ONE (09:33)
[2019-04-14] MEDS: CEFTRIAXONE 1 GM in DEXTROSE 5%-WATER - 50 ML IVPB SCH (09:44)
[2019-04-14] MEDS: FUROSEMIDE 20 MG TABLET (FP) PO SCH (09:45)
[2019-04-14] MEDS: metoPROLOL SUCCINATE 25 MG TAB.SR.24H (FP) PO SCH (09:45)
--- NOTE | 2019-04-14 11:24 | PN ---
Progress Note (short form) - Note Progress Note: has cough and congestion -- greenish phlegm,better today no chest pain Vital Signs - 24 hr 04/13/19 04/13/19 04/13/19 14:37 17:00 21:00 Temperature 98.7 F 98.6 F 99 F Pulse Rate 87 88 90 Respiratory 20 20 20 Rate Blood Pressure 155/77 144/84 145/76 O2 Sat by Pulse 96 Oximetry (%) 04/14/19 04/14/19 04:26 09:00 Temperature 98.4 F 97.6 F Pulse Rate 102 H 106 H Respiratory 20 20 Rate Blood Pressure 114/59 L 133/76 O2 Sat by Pulse Oximetry (%) Current Medications Generic Name Dose Route Start Last Admin Trade Name Freq PRN Reason Stop Dose Admin Albuterol/Ipratropium 1 amp 04/10/19 21:51 04/10/19 22:00 Duoneb - NEB 1 amp Q6H PRN Administration SHORTNESS OF BREATH Furosemide 20 mg 04/11/19 10:00 04/14/19 09:45 Lasix - PO 20 mg DAILY TERESITA Administration Ceftriaxone Sodium 1 gm/ 50 mls @ 100 mls/hr 04/12/19 12:15 04/14/19 09:44 Dextrose IVPB 100 mls/hr DAILY TERESITA Administration Protocol Insulin Aspart 1 vial 04/13/19 16:30 04/14/19 06:09 Novolog Vial Sliding Scale - SQ 1 unit TIDAC TERESITA Administration Protocol Insulin Aspart 1 vial 04/13/19 22:00 04/13/19 23:15 Novolog Vial Sliding Scale - SQ 3 units HS TERESITA Administration Protocol Levothyroxine Sodium 37.5 mcg 04/12/19 07:00 04/14/19 06:10 Synthroid - PO 37.5 mcg DAILY@0700 TERESITA Administration Metoclopramide HCl 10 mg 04/12/19 16:30 04/14/19 06:09 Reglan - PO 10 mg TIDAC TERESITA Administration Metoprolol Succinate 25 mg 04/11/19 10:00 04/14/19 09:45 Toprol Xl - PO 25 mg DAILY TERESITA Administration Non-Formulary Med ( 2 each 04/12/19 07:00 Tresiba Insulin) SQ AM TERESITA Laboratory Results - last 24 hr 06/11/19 06/11/19 06/11/19 12:32 16:31 23:05 WBC RBC Hgb Hct MCV MCH MCHC RDW Plt Count MPV Absolute Neuts (auto) Neutrophils % Lymphocytes % Monocytes % Eosinophils % Basophils % Nucleated RBC % Sodium Potassium Chloride Carbon Dioxide Anion Gap BUN Creatinine Est GFR (CKD-EPI)AfAm Est GFR (CKD-EPI)NonAf POC Glucometer 297 278 360 Random Glucose Calcium Total Bilirubin AST ALT Alkaline Phosphatase Total Protein Albumin 04/14/19 04/14/19 04/14/19 06:04 07:03 07:03 WBC 2.8 L RBC 2.89 L Hgb 9.2 L Hct 27.2 L D MCV 94.0 MCH 31.7 MCHC 33.8 RDW 15.9 H Plt Count 153 MPV 7.5 Absolute Neuts (auto) 1.6 Neutrophils % 58.2 Lymphocytes % 18.3 D Monocytes % 13.2 H Eosinophils % 9.5 H Basophils % 0.8 Nucleated RBC % 0 Sodium 136 Potassium 4.8 Chloride 104 Carbon Dioxide 28 Anion Gap 4 L BUN 21.9 H Creatinine 1.5 H Est GFR (CKD-EPI)AfAm 45.62 Est GFR (CKD-EPI)NonAf 39.36 POC Glucometer 200 Random Glucose 202 H Calcium 7.5 L Total Bilirubin 0.3 AST 16 ALT 10 L Alkaline Phosphatase 243 H Total Protein 4.9 L Albumin 1.9 L Physical Exam awake/ comfortable S1 S2 regular Lungs clear No pallor Abd-soft, non tender + edema Neuro- a0 x3 PLAN Ceftriaxone empirically Resend culture urine f/u labs CT chest -- congestive changes monitor renal function PT eval daily oob- chair Reglan before meals will follow check pre and post o2 sat Problem List - Problems (1) Pleural mass Code(s): J94.9 - PLEURAL CONDITION, UNSPECIFIED (2) Elevated troponin Code(s): R74.8 - ABNORMAL LEVELS OF OTHER SERUM ENZYMES (3) Lightheadedness Code(s): R42 - DIZZINESS AND GIDDINESS (4) Near syncope Code(s): R55 - SYNCOPE AND COLLAPSE (5) Acute renal failure superimposed on chronic kidney disease Code(s): N17.9 - ACUTE KIDNEY FAILURE, UNSPECIFIED; N18.9 - CHRONIC KIDNEY DISEASE, UNSPECIFIED (6) Anemia Code(s): D64.9 - ANEMIA, UNSPECIFIED
[2019-04-14] MEDS ORDERED: FUROSEMIDE 40 MG TABLET (FP) PO SCH (11:25)
[2019-04-14] MEDS ORDERED: diphenhydrAMINE HCL 25 MG CAPSULE (FP) PO PRN (18:23)
[2019-04-14] MEDS: TRIAMCINOLONE ACET 0.1% CREAM 15 GM TUBE TP SCH (21:43)
[2019-04-15] MEDS: TRESIBA SQ SCH (06:46)
[2019-04-15] MEDS: METOCLOPRAMIDE HCL 10 MG TABLET (FP) PO SCH ×3 (06:46→17:16)
[2019-04-15] MEDS: INSULIN SLIDING SCALE (NOVOLOG) 1 VIAL SQ SCH ×4 (06:46→21:39)
[2019-04-15] MEDS: LEVOTHYROXINE NA 50 MCG TABLET (FP) PO SCH (06:47)
[2019-04-15] MEDS: ALBUTEROL SO4 2.5/IPRATROPIUM 0.5 INH SOL 3 ML VIAL.NEB. NEB PRN (07:28)
[2019-04-15 08:52] LABS: HEMATOCRIT 31.7 % (32.4-45.2); HEMOGLOBIN 10.4 GM/dL (10.7-15.3); MCH 31.1 pg (25.7-33.7); MEAN CELL VOLUME 94.5 fl (80-96); MEAN PLT VOLUME 7.8 fl (7.5-11.1); RBC 3.35 M/mm3 (3.60-5.2); RDW 16.4 % (11.6-15.6); WHITE BLOOD COUNT 3.4 K/mm3 (4.0-10.0)
[2019-04-15 08:56] LABS: BLOOD UREA NITROGEN 21.4 mg/dL (7-18); CREATININE 1.5 mg/dL (0.55-1.3); POTASSIUM 4.7 mmol/L (3.5-5.1)
[2019-04-15 09:04] LABS: PLATELET COUNT 171 K/MM3 (134-434)
[2019-04-15] MEDS ORDERED: DEXTROSE 5%-WATER - 50 ML IVPB ONE (10:51)
[2019-04-15] MEDS ORDERED: cefTRIAXone SODIUM 1 GM VIAL ONE (10:51)
[2019-04-15] MEDS ORDERED: FUROSEMIDE 40 MG/4 ML INJECTABLE VIAL IVPUSH ONE (10:55)
--- NOTE | 2019-04-15 10:56 | PN ---
Progress Note (short form) - Note Progress Note: has cough and congestion -- improving did not qualify for O2 Vital Signs - 24 hr 04/14/19 04/14/19 04/15/19 17:57 21:00 02:12 Temperature 97.8 F 98.3 F 98.1 F Pulse Rate 109 H 91 H 82 Respiratory 20 20 20 Rate Blood Pressure 141/84 127/74 134/78 O2 Sat by Pulse 96 Oximetry (%) 04/15/19 04/15/19 04/15/19 06:00 10:00 14:00 Temperature 98 F 98.7 F Pulse Rate 87 92 H 109 H Respiratory 20 20 Rate Blood Pressure 153/79 112/56 L 146/88 O2 Sat by Pulse Oximetry (%) Current Medications Generic Name Dose Route Start Last Admin Trade Name Freq PRN Reason Stop Dose Admin Albuterol/Ipratropium 1 amp 04/10/19 21:51 04/15/19 07:28 Duoneb - NEB 1 amp Q6H PRN Administration SHORTNESS OF BREATH Diphenhydramine HCl 25 mg 04/15/19 10:55 Benadryl - PO DAILY PRN FOR ITCHING Ceftriaxone Sodium 1 gm/ 50 mls @ 100 mls/hr 04/12/19 12:15 04/15/19 11:14 Dextrose IVPB 100 mls/hr DAILY TERESITA Administration Protocol Insulin Aspart 1 vial 04/13/19 16:30 04/15/19 12:33 Novolog Vial Sliding Scale - SQ 3 unit TIDAC TERESITA Administration Protocol Insulin Aspart 1 vial 04/13/19 22:00 04/14/19 21:43 Novolog Vial Sliding Scale - SQ Not Given HS TERESITA Protocol Levothyroxine Sodium 50 mcg 04/15/19 07:00 04/15/19 06:47 Synthroid - PO 50 mcg DAILY@0700 TERESITA Administration Metoclopramide HCl 10 mg 04/12/19 16:30 04/15/19 11:14 Reglan - PO 10 mg TIDAC TERESITA Administration Metoprolol Succinate 25 mg 04/11/19 10:00 04/15/19 11:14 Toprol Xl - PO 25 mg DAILY TERESITA Administration Non-Formulary Med: 3 each 04/15/19 07:00 04/15/19 06:46 Tresiba Inj SQ 3 each AM TERESITA Administration Triamcinolone Acetonide 1 applic 04/14/19 22:00 04/15/19 11:14 Aristocort 0.1% Cream - TP 1 applic BID TERESITA Administration Laboratory Results - last 24 hr 04/14/19 04/15/19 04/15/19 21:42 05:46 07:58 WBC 3.4 L RBC 3.35 L Hgb 10.4 L Hct 31.7 L D MCV 94.5 MCH 31.1 MCHC 33.0 RDW 16.4 H Plt Count 171 MPV 7.8 Sodium Potassium Chloride Carbon Dioxide Anion Gap BUN Creatinine Est GFR (CKD-EPI)AfAm Est GFR (CKD-EPI)NonAf POC Glucometer 162 234 Random Glucose Calcium 04/15/19 04/15/19 07:58 12:07 WBC RBC Hgb Hct MCV MCH MCHC RDW Plt Count MPV Sodium 136 Potassium 4.7 Chloride 103 Carbon Dioxide 26 Anion Gap 8 BUN 21.4 H Creatinine 1.5 H Est GFR (CKD-EPI)AfAm 45.62 Est GFR (CKD-EPI)NonAf 39.36 POC Glucometer 337 Random Glucose 267 H Calcium 8.0 L Physical Exam awake/ comfortable S1 S2 regular Lungs crackles+ No pallor Abd-soft, non tender + edema Neuro- a0 x3 PLAN Ceftriaxone empirically Resend culture urine CT chest -- congestive changes monitor renal function PT eval one dose iv lasix as pt is congested possible dc tomorrow daily oob- chair Reglan before meals will follow Problem List - Problems (1) Pleural mass Code(s): J94.9 - PLEURAL CONDITION, UNSPECIFIED (2) Elevated troponin Code(s): R74.8 - ABNORMAL LEVELS OF OTHER SERUM ENZYMES (3) Lightheadedness Code(s): R42 - DIZZINESS AND GIDDINESS (4) Near syncope Code(s): R55 - SYNCOPE AND COLLAPSE (5) Acute renal failure superimposed on chronic kidney disease Code(s): N17.9 - ACUTE KIDNEY FAILURE, UNSPECIFIED; N18.9 - CHRONIC KIDNEY DISEASE, UNSPECIFIED (6) Anemia Code(s): D64.9 - ANEMIA, UNSPECIFIED
[2019-04-15] MEDS: CEFTRIAXONE 1 GM in DEXTROSE 5%-WATER - 50 ML IVPB SCH (11:14)
[2019-04-15] MEDS: TRIAMCINOLONE ACET 0.1% CREAM 15 GM TUBE TP SCH ×2 (11:14→21:36)
[2019-04-15] MEDS: metoPROLOL SUCCINATE 25 MG TAB.SR.24H (FP) PO SCH (11:14)
[2019-04-15] MEDS: diphenhydrAMINE HCL 25 MG CAPSULE (FP) PO PRN (17:16)
[2019-04-16] MEDS: TRESIBA SQ SCH (06:32)
[2019-04-16] MEDS: METOCLOPRAMIDE HCL 10 MG TABLET (FP) PO SCH ×3 (06:32→18:20)
[2019-04-16] MEDS: INSULIN SLIDING SCALE (NOVOLOG) 1 VIAL SQ SCH ×4 (06:32→22:22)
[2019-04-16] MEDS: LEVOTHYROXINE NA 50 MCG TABLET (FP) PO SCH (06:32)
[2019-04-16] MEDS ORDERED: FUROSEMIDE 40 MG TABLET (FP) PO SCH (10:00)
[2019-04-16] MEDS: TRIAMCINOLONE ACET 0.1% CREAM 15 GM TUBE TP SCH ×2 (10:04→22:16)
[2019-04-16] MEDS ORDERED: cefTRIAXone SODIUM 1 GM VIAL ONE (10:29)
[2019-04-16] MEDS ORDERED: DEXTROSE 5%-WATER - 50 ML IVPB ONE (10:29)
[2019-04-16] MEDS: metoPROLOL SUCCINATE 25 MG TAB.SR.24H (FP) PO SCH (10:35)
[2019-04-16] MEDS: CEFTRIAXONE 1 GM in DEXTROSE 5%-WATER - 50 ML IVPB SCH (10:35)
[2019-04-16] MEDS: ALBUTEROL SO4 2.5/IPRATROPIUM 0.5 INH SOL 3 ML VIAL.NEB. NEB PRN ×2 (11:25→20:05)
--- NOTE | 2019-04-16 11:50 | PN ---
Progress Note (short form) - Note Progress Note: pt seen/ examined chart reviewed awake. feels better still coughing chronic ill appearance Vital Signs Temp 98.6 F 04/16/19 06:00 Pulse 106 H 04/16/19 06:00 Resp 20 04/16/19 06:00 BP 146/90 04/16/19 06:00 Pulse Ox 92 L 04/15/19 21:00 Intake & Output 04/15/19 04/15/19 04/16/19 11:59 23:59 11:59 Intake Total 450 290 Balance 450 290 Intake: Oral 450 290 Other: Voiding Method Incontinent # Unmeasured Voids Void 1 1 2 Bowel Movement Yes # Bowel Movements 2 Active Medications Albuterol/Ipratropium (Duoneb -) 1 amp NEB Q6H PRN PRN Reason: SHORTNESS OF BREATH Last Admin: 04/16/19 11:25 Dose: 1 amp Diphenhydramine HCl (Benadryl -) 25 mg PO DAILY PRN PRN Reason: FOR ITCHING Last Admin: 04/15/19 17:16 Dose: 25 mg Furosemide (Lasix Injection -) 40 mg IVPUSH DAILY [facility] Ceftriaxone Sodium 1 gm/ (Dextrose) 50 mls @ 100 mls/hr IVPB DAILY [facility]; Protocol Last Admin: 04/16/19 10:35 Dose: 100 mls/hr Insulin Aspart (Novolog Vial Sliding Scale -) 1 vial SQ TIDAC [facility]; Protocol Last Admin: 04/16/19 06:32 Dose: 2 unit Insulin Aspart (Novolog Vial Sliding Scale -) 1 vial SQ HS [facility]; Protocol Last Admin: 04/15/19 21:39 Dose: 2 units Levothyroxine Sodium (Synthroid -) 50 mcg PO DAILY@0700 [facility] Last Admin: 04/16/19 06:32 Dose: 50 mcg Metoclopramide HCl (Reglan -) 10 mg PO TIDAC [facility] Last Admin: 04/16/19 10:36 Dose: 10 mg Metoprolol Succinate (Toprol Xl -) 25 mg PO DAILY [facility] Last Admin: 04/16/19 10:35 Dose: 25 mg Non-Formulary Med: (Tresiba Inj) 3 each SQ AM [facility] Last Admin: 04/16/19 06:32 Dose: 3 each Triamcinolone Acetonide (Aristocort 0.1% Cream -) 1 applic TP BID [facility] Last Admin: 04/15/19 21:36 Dose: Not Given CBC, BMP 04/15/19 07:58 04/15/19 07:58 ct chest reviewed Physical Exam awake/ comfortable S1 S2 regular Lungs crackles+ No pallor Abd-soft, non tender + edema Neuro- a0 x3 PLAN Ceftriaxone empirically CT chest -- congestive changes monitor renal function PT eval iv lasix as pt is congested daily oob- chair Reglan before meals will follow Pulmonary to evaluate Problem List - Problems (1) Elevated troponin Code(s): R74.8 - ABNORMAL LEVELS OF OTHER SERUM ENZYMES (2) Lightheadedness Code(s): R42 - DIZZINESS AND GIDDINESS (3) Near syncope Code(s): R55 - SYNCOPE AND COLLAPSE (4) Anemia in chronic kidney disease Code(s): N18.9 - CHRONIC KIDNEY DISEASE, UNSPECIFIED; D63.1 - ANEMIA IN CHRONIC KIDNEY DISEASE
[2019-04-16] MEDS: FUROSEMIDE 40 MG/4 ML INJECTABLE VIAL IVPUSH SCH (13:04)
--- NOTE | 2019-04-16 13:29 | PN ---
Progress Note (short form) - Note Progress Note: No new complaints Still with cough Blood sugar fluctuating No hypos Vital Signs Period Temp Pulse Resp BP Sys/Sibley Pulse Ox Last 24 Hr 98.4 F-99.0 F 97-112 20-20 142-158/77-93 92-92 Neck: Supple, No JVD HEENT: PERRL, EOMI Lungs: Decreased BS L<Rt CVS: S1S2 Abd: Benign Ext: No edema CMP Sodium 136 mmol/L (136-145) 04/15/19 07:58 Potassium 4.7 mmol/L (3.5-5.1) 04/15/19 07:58 Chloride 103 mmol/L (98-107) 04/15/19 07:58 Carbon Dioxide 26 mmol/L (21-32) 04/15/19 07:58 Anion Gap 8 MMOL/L (8-16) 04/15/19 07:58 BUN 21.4 mg/dL (7-18) H 04/15/19 07:58 Creatinine 1.5 mg/dL (0.55-1.3) H 04/15/19 07:58 Est GFR (CKD-EPI)AfAm 45.62 04/15/19 07:58 Est GFR (CKD-EPI)NonAf 39.36 04/15/19 07:58 POC Glucometer 306 UNITS (80-120) 04/16/19 12:22 Random Glucose 267 mg/dL (74-106) H 04/15/19 07:58 Calcium 8.0 mg/dL (8.5-10.1) L 04/15/19 07:58 Phosphorus 4.6 mg/dL (2.5-4.9) 04/11/19 05:40 Magnesium 1.5 mg/dL (1.8-2.4) L 04/11/19 05:40 Total Bilirubin 0.3 mg/dL (0.2-1) 04/14/19 07:03 AST 16 U/L (15-37) 04/14/19 07:03 ALT 10 U/L (13-61) L 04/14/19 07:03 Alkaline Phosphatase 243 U/L (45-117) H 04/14/19 07:03 Creatine Kinase 62 U/L (26-192) 04/10/19 15:30 Troponin I 0.07 ng/ml (0.00-0.05) H 04/11/19 01:00 Total Protein 4.9 g/dl (6.4-8.2) L 04/14/19 07:03 Albumin 1.9 g/dl (3.4-5.0) L 04/14/19 07:03 Triglycerides 167 mg/dL (0-150) H 04/11/19 05:40 Cholesterol 165 mg/dL (50-200) 04/11/19 05:40 Total LDL Cholesterol 67 mg/dL (5-100) 04/11/19 05:40 HDL Cholesterol 85 mg/dL (40-60) H 04/11/19 05:40 TSH 9.08 uIU/ml (0.358-3.74) H 04/11/19 05:40 Current Medications Generic Name Dose Route Start Last Admin Trade Name Freq PRN Reason Stop Dose Admin Albuterol/Ipratropium 1 amp 04/10/19 21:51 04/16/19 11:25 Duoneb - NEB 1 amp Q6H PRN Administration SHORTNESS OF BREATH Diphenhydramine HCl 25 mg 04/15/19 10:55 04/15/19 17:16 Benadryl - PO 25 mg DAILY PRN Administration FOR ITCHING Furosemide 40 mg 04/16/19 12:00 Lasix Injection - IVPUSH DAILY TERESITA Ceftriaxone Sodium 1 gm/ 50 mls @ 100 mls/hr 04/12/19 12:15 04/16/19 10:35 Dextrose IVPB 100 mls/hr DAILY TERESITA Administration Protocol Insulin Aspart 1 vial 04/13/19 16:30 04/16/19 06:32 Novolog Vial Sliding Scale - SQ 2 unit TIDAC TERESITA Administration Protocol Insulin Aspart 1 vial 04/13/19 22:00 04/15/19 21:39 Novolog Vial Sliding Scale - SQ 2 units HS TERESITA Administration Protocol Levothyroxine Sodium 50 mcg 04/15/19 07:00 04/16/19 06:32 Synthroid - PO 50 mcg DAILY@0700 TERESITA Administration Metoclopramide HCl 10 mg 04/12/19 16:30 04/16/19 10:36 Reglan - PO 10 mg TIDAC TERESITA Administration Metoprolol Succinate 25 mg 04/11/19 10:00 04/16/19 10:35 Toprol Xl - PO 25 mg DAILY TERESITA Administration Non-Formulary Med: 3 each 04/15/19 07:00 04/16/19 06:32 Tresiba Inj SQ 3 each AM TERESITA Administration Triamcinolone Acetonide 1 applic 04/14/19 22:00 04/15/19 21:36 Aristocort 0.1% Cream - TP Not Given BID TERESITA AP: T1DM Hypothyroidism Cough H/O Breast Ca Increase Tresiba 3 units daily Increase Novolog Coverage LT4 50mcg Qd Mix Ceftriaxone in non dextrose solution Ceftriaxone Will F/U
--- NOTE | 2019-04-16 13:52 | CON.PULM ---
Consult Consult Specialty:: PULMONARY Referred by:: PMD Reason for Consultation:: PLEURAL EFFUSIONS - History of Present Illness Chief Complaint: SYNCOPE History of Present Illness: This is a 53 y/o woman with a PMHx of HTN, HLD, IDDM, Anemia, CKD, Nephrolithasis, UTIs, Morphea scleroderma, Psoriasis, Breast Ca s/p Bilateral Mastectomy,s/p rt,s/p chemotx. Who presents to the ED for near syncope. Patient reports that she was at [facility] for blood work when she felt faint while walking to her car. The patient reports having trouble walking with increased weakness over the past several weeks. She reports having bilateral leg edema, which are giving her some discomfort. The patient also reports mild SOB and a cough which she attributes to allergies. Of note, patient has a history of fainting with low blood pressure and anemia. Patient denies chest pain, palpitations. Patient denies fever, chills, N/V/D and constipation. Patient denies dysuria, frequency, urgency and hematuria. Patient had a thoracentesis last year which revealed transudative characteristics with rare atypical cells noted (favored reactive) on cytology. I have been called 2/2 increased bilateral effusions with compressive atelectasis left greater than right. 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 breast cancer--2009. 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 s/p bilateral mastectomies/axillary lymphadenectomy. s/p RT to Lt. chestwall. s/p adjuvant chemotherapy - Past Surgical History Past Surgical History: Yes: Appendectomy, , Mastectomy (Bilateral) - Alcohol/Substance Use Hx Alcohol Use: No History of Substance Use: reports: None - Smoking History Smoking history: Never smoked Have you smoked in the past 12 months: No Aproximately how many cigarettes per day: 0 - Social History ADL: Family Assistance Occupation: Unemployed History of Recent Travel: No Home Medications - Allergies Allergies/Adverse Reactions: Allergies Allergy/AdvReac Type Severity Reaction Status Date / Time Sulfa (Sulfonamide Allergy Intermediate Hives Verified 03/19/19 10:19 Antibiotics) [Sulfa(Sulfonamide Antibiotics)] terbinafine HCl Allergy Intermediate Rash Verified 03/19/19 10:19 [From Lamisil] - Home Medications Home Medications: Ambulatory Orders Levothyroxine [Synthroid -] 25 mcg PO DAILY@0700 #30 tablet 06/20/14 Metoprolol Succinate [Toprol XL -] 25 mg PO DAILY 07/19/14 Mauri/D3/Mag11/Zinc/Chief Minister/Atif/Bor [Caltrate 600+D Plus Tablet] 1 each PO DAILY Omeprazole 20 mg PO DAILY 03/19/19 Insulin Lispro [Humalog] 0 unit SQ AC 04/10/19 Family Disease History - Family Disease History Family Disease History: CA: Grandparent (paternal grandmother --colon ca// maternal grandmother --breast cancer), Father (colon cancer; had kidney stones) , Mother (; also was on dialysis; had no diabetes), Other: Sister (kidney stones younger sister, colon polyps) Review of Systems - Review of Systems Constitutional: reports: Lethargy, Loss of Appetite. denies: Fever Eyes: denies: Blurred Vision HENT: denies: Difficult Swallowing Neck: denies: Decreased ROM Cardiovascular: reports: Shortness of Breath. denies: Chest Pain Respiratory: reports: Cough, Exercise Intolerance, SOB, SOB on Exertion. denies : Hemoptysis, Wheezing Gastrointestinal: denies: Abdominal Pain Genitourinary: denies: Burning Physical Exam Vital Sings: Vital Signs Temperature 99.0 F 04/16/19 10:00 Pulse Rate 112 H 04/16/19 10:00 Respiratory Rate 20 04/16/19 10:00 Blood Pressure 158/93 04/16/19 10:00 O2 Sat by Pulse Oximetry (%) 92 L 04/16/19 09:00 Constitutional: Yes: Calm, Pallor Eyes: Yes: EOM Intact HENT: Yes: Normocephalic Neck: Yes: Trachea Midline Cardiovascular: Yes: S1, S2 Respiratory: Yes: Diminished, Other (dullness to percusion left greater than right) Gastrointestinal: Yes: Soft Edema: LLE: 1+, RLE: 1+ Integumentary: Yes: WNL Neurological: Yes: Alert Labs: CBC, BMP 04/15/19 07:58 04/15/19 07:58 rest reviewed Imaging - Results X-ray: Report Reviewed, Image Reviewed Cat Scan: Report Reviewed, Image Reviewed EKG: Report Reviewed, Image Reviewed Other: Report Reviewed (echo) Problem List - Problems (1) Breast cancer Code(s): C50.919 - MALIGNANT NEOPLASM OF UNSP SITE OF UNSPECIFIED FEMALE BREAST (2) Acute renal failure superimposed on chronic kidney disease Code(s): N17.9 - ACUTE KIDNEY FAILURE, UNSPECIFIED; N18.9 - CHRONIC KIDNEY DISEASE, UNSPECIFIED (3) Anemia Code(s): D64.9 - ANEMIA, UNSPECIFIED (4) Fatty liver, alcoholic Code(s): K70.0 - ALCOHOLIC FATTY LIVER (5) Pleural effusion Code(s): J90 - PLEURAL EFFUSION, NOT ELSEWHERE CLASSIFIED (6) Scleroderma Code(s): M34.9 - SYSTEMIC SCLEROSIS, UNSPECIFIED (7) FH: mastectomy Code(s): Z84.89 - FAMILY HISTORY OF OTHER SPECIFIED CONDITIONS Assessment/Plan BILATERAL PLEURAL EFFUSIONS LEFT (PARTIALLY LOCULATED) GREATER THAN RIGHT WITH COMPRESSIVE ATELECTASIS INCREASED OVER 12 MONTHS S/P THORACENTESIS 2018 WHICH REVEALED TRANSUDATE WITH RARE ATYPICAL CELLS WHICH WAS THOUGHT TO BE REACTIVE H/O OF BREAST CA S/P BILATERAL MASTECTOMY S/P RT S/P CHEMOTX ECHO REVEALS EF 30-35% WITH DIASTOLIC DYSFUNCTION AND ? PLEURAL MASS NOT SEEN ON CT CHEST (MAY REPRESENT LOCULATED FLUID OR COMPRESSIVE ATELECTASIS ) WOULD RECOMMEND REPEAT THORACENTESIS ON LEFT FOR BOTH THERAPEUTIC AND DIAGNOSTIC PURPOSES. WOULD CHECK BNP CONTINUE SUPPLEMENTAL O2/BRONCHODILATORS/TRIAL OF DIURETICS CARDIOLOGY FOLLOW UP WILL FOLLOW Steven ENGLAND MD
[2019-04-16] MEDS: diphenhydrAMINE HCL 25 MG CAPSULE (FP) PO PRN (22:16)
[2019-04-17] MEDS: INSULIN SLIDING SCALE (NOVOLOG) 1 VIAL SQ SCH ×4 (06:26→21:25)
[2019-04-17] MEDS: LEVOTHYROXINE NA 50 MCG TABLET (FP) PO SCH (06:26)
[2019-04-17] MEDS: METOCLOPRAMIDE HCL 10 MG TABLET (FP) PO SCH ×4 (06:26→16:40)
[2019-04-17] MEDS: TRESIBA SQ SCH (06:28)
[2019-04-17] MEDS ORDERED: INSULIN (NOVOLOG) ASPART 100 UNITS/ML 10ML VIAL ONE (06:32)
[2019-04-17 07:53] LABS: BILIRUBIN,TOTAL 0.3 mg/dL (0.2-1); BLOOD UREA NITROGEN 29.4 mg/dL (7-18); CALCIUM 7.8 mg/dL (8.5-10.1); CREATININE 1.6 mg/dL (0.55-1.3); POTASSIUM 5.4 mmol/L (3.5-5.1); TOT PROT 5.2 g/dl (6.4-8.2)
[2019-04-17 08:00] LABS: BASO % 0.9 % (0-2.0); EOS % 9.2 % (0-4.5); HEMATOCRIT 26.6 % (32.4-45.2); LYMPH % 26.6 % (8-40); MCH 31.8 pg (25.7-33.7); MCHC 33.9 g/dl (32.0-36.0); MEAN CELL VOLUME 93.7 fl (80-96); MEAN PLT VOLUME 7.6 fl (7.5-11.1); MONO % 14.1 % (3.8-10.2); NEUT % 49.2 % (42.8-82.8); PLATELET COUNT 169 K/MM3 (134-434); RBC 2.84 M/mm3 (3.60-5.2); RDW 16.4 % (11.6-15.6); WHITE BLOOD COUNT 2.8 K/mm3 (4.0-10.0)
[2019-04-17] MEDS ORDERED: DEXTROSE 5%-WATER - 50 ML IVPB ONE (09:57)
[2019-04-17] MEDS ORDERED: cefTRIAXone SODIUM 1 GM VIAL ONE (09:57)
[2019-04-17] MEDS: FUROSEMIDE 40 MG/4 ML INJECTABLE VIAL IVPUSH SCH (10:11)
[2019-04-17] MEDS: metoPROLOL SUCCINATE 25 MG TAB.SR.24H (FP) PO SCH (10:11)
[2019-04-17] MEDS: CEFTRIAXONE 1 GM in DEXTROSE 5%-WATER - 50 ML IVPB SCH (10:11)
[2019-04-17] MEDS: TRIAMCINOLONE ACET 0.1% CREAM 15 GM TUBE TP SCH ×3 (10:12→21:15)
--- NOTE | 2019-04-17 11:38 | PN ---
Progress Note (short form) - Note Progress Note: PULMONARY MINOR SUBJECTIVE IMPROVEMENT VSS/AFEBRILE Constitutional: Yes: Calm, Pallor Eyes: Yes: EOM Intact HENT: Yes: Normocephalic Neck: Yes: Trachea Midline Cardiovascular: Yes: S1, S2 Respiratory: Yes: Diminished, Other (dullness to percusion left greater than right) Gastrointestinal: Yes: Soft Edema: LLE: 1+, RLE: 1+ Integumentary: Yes: WNL Neurological: Yes: Alert Labs/notes/images REVIEWED - Problems (1) Breast cancer Code(s): C50.919 - MALIGNANT NEOPLASM OF UNSP SITE OF UNSPECIFIED FEMALE BREAST (2) Acute renal failure superimposed on chronic kidney disease Code(s): N17.9 - ACUTE KIDNEY FAILURE, UNSPECIFIED; N18.9 - CHRONIC KIDNEY DISEASE, UNSPECIFIED (3) Anemia Code(s): D64.9 - ANEMIA, UNSPECIFIED (4) Fatty liver, alcoholic Code(s): K70.0 - ALCOHOLIC FATTY LIVER (5) Pleural effusion Code(s): J90 - PLEURAL EFFUSION, NOT ELSEWHERE CLASSIFIED (6) Scleroderma Code(s): M34.9 - SYSTEMIC SCLEROSIS, UNSPECIFIED (7) FH: mastectomy Code(s): Z84.89 - FAMILY HISTORY OF OTHER SPECIFIED CONDITIONS Assessment/Plan BILATERAL PLEURAL EFFUSIONS LEFT (PARTIALLY LOCULATED) GREATER THAN RIGHT WITH COMPRESSIVE ATELECTASIS INCREASED OVER 12 MONTHS S/P THORACENTESIS 2018 WHICH REVEALED TRANSUDATE WITH RARE ATYPICAL CELLS WHICH WAS THOUGHT TO BE REACTIVE H/O OF BREAST CA S/P BILATERAL MASTECTOMY S/P RT S/P CHEMOTX ECHO REVEALS EF 30-35% WITH DIASTOLIC DYSFUNCTION AND ? PLEURAL MASS NOT SEEN ON CT CHEST (MAY REPRESENT LOCULATED FLUID OR COMPRESSIVE ATELECTASIS ) WOULD RECOMMEND REPEAT THORACENTESIS ON LEFT FOR BOTH THERAPEUTIC AND DIAGNOSTIC PURPOSES. WOULD CHECK BNP CONTINUE SUPPLEMENTAL O2/BRONCHODILATORS/TRIAL OF DIURETICS CARDIOLOGY F/U R TOMÁS GAYTAN Problem List - Problems (1) Breast cancer Code(s): C50.919 - MALIGNANT NEOPLASM OF UNSP SITE OF UNSPECIFIED FEMALE BREAST (2) Acute renal failure superimposed on chronic kidney disease Code(s): N17.9 - ACUTE KIDNEY FAILURE, UNSPECIFIED; N18.9 - CHRONIC KIDNEY DISEASE, UNSPECIFIED (3) Anemia Code(s): D64.9 - ANEMIA, UNSPECIFIED (4) Fatty liver, alcoholic Code(s): K70.0 - ALCOHOLIC FATTY LIVER (5) Pleural effusion Code(s): J90 - PLEURAL EFFUSION, NOT ELSEWHERE CLASSIFIED (6) Scleroderma Code(s): M34.9 - SYSTEMIC SCLEROSIS, UNSPECIFIED (7) FH: mastectomy Code(s): Z84.89 - FAMILY HISTORY OF OTHER SPECIFIED CONDITIONS
--- NOTE | 2019-04-17 15:07 | PN ---
Progress Note (short form) - Note Progress Note: pt seen/ examined chart reviewed awake. feels slightly better 2 Vital Signs Temp 98.5 F 04/17/19 09:00 Pulse 82 04/17/19 09:00 Resp 18 04/17/19 09:00 BP 130/72 04/17/19 09:00 Pulse Ox 99 04/17/19 09:00 Intake & Output 04/16/19 04/17/19 04/17/19 23:59 11:59 23:59 Intake Total 320 490 Balance 320 490 Intake: IV 20 10 saline lock 20 10 IVPB 50 Oral 250 480 Other: Voiding Method Incontinent Incontinent Bowel Movement Yes: Extra Large Soft # Bowel Movements 2 Active Medications Albuterol/Ipratropium (Duoneb -) 1 amp NEB Q6H PRN PRN Reason: SHORTNESS OF BREATH Last Admin: 04/16/19 20:05 Dose: 1 amp Diphenhydramine HCl (Benadryl -) 25 mg PO DAILY PRN PRN Reason: FOR ITCHING Last Admin: 04/16/19 22:16 Dose: 25 mg Furosemide (Lasix Injection -) 40 mg IVPUSH DAILY [facility] Last Admin: 04/17/19 10:11 Dose: 40 mg Ceftriaxone Sodium 1 gm/ (Dextrose) 50 mls @ 100 mls/hr IVPB DAILY [facility]; Protocol Last Admin: 04/17/19 10:11 Dose: 100 mls/hr Insulin Aspart (Novolog Vial Sliding Scale -) 1 vial SQ HS [facility]; Protocol Last Admin: 04/16/19 22:22 Dose: 2 units Insulin Aspart (Novolog Vial Sliding Scale -) 1 vial SQ TIDAC [facility]; Protocol Last Admin: 04/17/19 12:13 Dose: 3 units Levothyroxine Sodium (Synthroid -) 50 mcg PO DAILY@0700 [facility] Last Admin: 04/17/19 06:26 Dose: 50 mcg Metoclopramide HCl (Reglan -) 10 mg PO TIDAC [facility] Last Admin: 04/17/19 10:22 Dose: Not Given Metoprolol Succinate (Toprol Xl -) 25 mg PO DAILY [facility] Last Admin: 04/17/19 10:11 Dose: 25 mg Non-Formulary Med: (Tresiba Inj) 3 each SQ AM [facility] Last Admin: 04/17/19 06:28 Dose: 3 each Triamcinolone Acetonide (Aristocort 0.1% Cream -) 1 applic TP BID [facility] Last Admin: 04/17/19 10:21 Dose: Not Given CBC, BMP 04/17/19 05:28 04/17/19 05:28 Physical Exam awake/ comfortable S1 S2 regular Lungs crackles+ No pallor Abd-soft, non tender + edema Neuro- a0 x3 PLAN Ceftriaxone empirically continue present care monitor labs Pulmonary consult appreciated and I agree with Recommendations pt also want to see Dr. Benson - will consult continue i/v lasix monitor bgm will follow Problem List - Problems (1) Elevated troponin Code(s): R74.8 - ABNORMAL LEVELS OF OTHER SERUM ENZYMES (2) Lightheadedness Code(s): R42 - DIZZINESS AND GIDDINESS (3) Near syncope Code(s): R55 - SYNCOPE AND COLLAPSE (4) Anemia in chronic kidney disease Code(s): N18.9 - CHRONIC KIDNEY DISEASE, UNSPECIFIED; D63.1 - ANEMIA IN CHRONIC KIDNEY DISEASE
[2019-04-17] MEDS: diphenhydrAMINE HCL 25 MG CAPSULE (FP) PO PRN (22:42)
[2019-04-18] MEDS: LEVOTHYROXINE NA 50 MCG TABLET (FP) PO SCH (06:38)
[2019-04-18] MEDS: METOCLOPRAMIDE HCL 10 MG TABLET (FP) PO SCH ×3 (06:38→17:00)
[2019-04-18] MEDS: TRESIBA SQ SCH (06:39)
[2019-04-18] MEDS: INSULIN SLIDING SCALE (NOVOLOG) 1 VIAL SQ SCH ×4 (06:39→21:27)
[2019-04-18 07:21] LABS: ALBUMIN 2.1 g/dl (3.4-5.0); BILIRUBIN,TOTAL 0.3 mg/dL (0.2-1); BLOOD UREA NITROGEN 29.4 mg/dL (7-18); CALCIUM 8.2 mg/dL (8.5-10.1); CREATININE 1.7 mg/dL (0.55-1.3); POTASSIUM 4.7 mmol/L (3.5-5.1); TOT PROT 5.4 g/dl (6.4-8.2)
[2019-04-18 07:40] LABS: BASO % 0.9 % (0-2.0); EOS % 8.4 % (0-4.5); HEMATOCRIT 28.1 % (32.4-45.2); HEMOGLOBIN 9.5 GM/dL (10.7-15.3); LYMPH % 24.4 % (8-40); MCH 31.2 pg (25.7-33.7); MCHC 33.7 g/dl (32.0-36.0); MEAN CELL VOLUME 92.7 fl (80-96); MEAN PLT VOLUME 7.4 fl (7.5-11.1); MONO % 13.3 % (3.8-10.2); RBC 3.03 M/mm3 (3.60-5.2); RDW 16.3 % (11.6-15.6)
[2019-04-18 08:08] LABS: INR 0.93 (0.83-1.09)
[2019-04-18 08:38] LABS: PLATELET COUNT 195 K/MM3 (134-434)
[2019-04-18] MEDS ORDERED: cefTRIAXone SODIUM 1 GM VIAL ONE (09:59)
[2019-04-18] MEDS ORDERED: DEXTROSE 5%-WATER - 50 ML IVPB ONE (09:59)
[2019-04-18] MEDS: CEFTRIAXONE 1 GM in DEXTROSE 5%-WATER - 50 ML IVPB SCH (10:31)
[2019-04-18] MEDS: metoPROLOL SUCCINATE 25 MG TAB.SR.24H (FP) PO SCH (10:31)
[2019-04-18] MEDS: FUROSEMIDE 40 MG/4 ML INJECTABLE VIAL IVPUSH SCH (10:31)
[2019-04-18] MEDS: TRIAMCINOLONE ACET 0.1% CREAM 15 GM TUBE TP SCH ×2 (10:31→21:22)
--- NOTE | 2019-04-18 12:33 | PN ---
Progress Note (short form) - Note Progress Note: pt seen/ examined at bedside feels better Vital Signs Temp 98.3 F 04/18/19 10:00 Pulse 87 04/18/19 10:00 Resp 20 04/18/19 10:00 BP 155/76 04/18/19 10:00 Pulse Ox 95 04/18/19 09:00 Intake & Output 04/17/19 04/18/19 04/18/19 23:59 11:59 23:59 Intake Total 850 240 Balance 850 240 Intake: IVPB 50 Oral 800 240 Other: Voiding Method Diaper Diaper # Unmeasured Voids Void 2 1 Bowel Movement Yes Active Medications Albuterol/Ipratropium (Duoneb -) 1 amp NEB Q6H PRN PRN Reason: SHORTNESS OF BREATH Last Admin: 04/16/19 20:05 Dose: 1 amp Diphenhydramine HCl (Benadryl -) 25 mg PO DAILY PRN PRN Reason: FOR ITCHING Last Admin: 04/17/19 22:42 Dose: 25 mg Furosemide (Lasix Injection -) 40 mg IVPUSH DAILY [facility] Last Admin: 04/18/19 10:31 Dose: 40 mg Insulin Aspart (Novolog Vial Sliding Scale -) 1 vial SQ HS [facility]; Protocol Last Admin: 04/17/19 21:25 Dose: Not Given Insulin Aspart (Novolog Vial Sliding Scale -) 1 vial SQ TIDAC [facility]; Protocol Last Admin: 04/18/19 12:13 Dose: 1 units Levothyroxine Sodium (Synthroid -) 50 mcg PO DAILY@0700 [facility] Last Admin: 04/18/19 06:38 Dose: 50 mcg Metoclopramide HCl (Reglan -) 10 mg PO TIDAC [facility] Last Admin: 04/18/19 10:31 Dose: Not Given Metoprolol Succinate (Toprol Xl -) 25 mg PO DAILY [facility] Last Admin: 04/18/19 10:31 Dose: 25 mg Non-Formulary Med: (Tresiba Inj) 3 each SQ AM [facility] Last Admin: 04/18/19 06:39 Dose: 3 each Triamcinolone Acetonide (Aristocort 0.1% Cream -) 1 applic TP BID [facility] Last Admin: 04/18/19 10:31 Dose: Not Given CBC, BMP 04/18/19 05:15 04/18/19 05:15 Physical Exam awake/ comfortable S1 S2 regular Lungs crackles+ No pallor Abd-soft, non tender + edema Neuro- a0 x3 PLAN better Ceftriaxone empirically-- d/c now continue present care monitor labs continue i/v lasix-- monitor renal function monitor bgm will follow Problem List - Problems (1) Elevated troponin Code(s): R74.8 - ABNORMAL LEVELS OF OTHER SERUM ENZYMES (2) Lightheadedness Code(s): R42 - DIZZINESS AND GIDDINESS (3) Near syncope Code(s): R55 - SYNCOPE AND COLLAPSE (4) Anemia in chronic kidney disease Code(s): N18.9 - CHRONIC KIDNEY DISEASE, UNSPECIFIED; D63.1 - ANEMIA IN CHRONIC KIDNEY DISEASE
--- NOTE | 2019-04-18 21:00 | CONSULT ---
Consult Consult Specialty:: Hematology Referred by:: Dr. Oswald Reason for Consultation:: Anemia - History of Present Illness Chief Complaint: Pre-syncope History of Present Illness: 52F w/HTN, CKD, hx breast cancer s/p bilateral mastectomy, scleroderma, alcoholism (continues to drink) admitted with pre-syncope (felt faint walking outside after bloodwork at [facility]. Pt had reported generalized weakness for a few weeks. TTE showed EF 30-35% and diastolic dysfunction. Also found to have bilateral pleural effusion (L>R)and pleural mass on TTE. Planned for thoracentesis. CT chest without contrast did not show a pleural mass. Hematology consulted for anemia. Was also evaluated on prior admission one month ago no nutritional deficiency, SPEP/FLC ratio normal, peripheral smear unremarkable. Denies bleeding including melena, hematochezia, epistaxis. No jaundice or changes in urine color. In 2018, had EGD that showed gastropathy, and colonoscopy with removal of 1.2 cm sigmoid polyp. 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 GI discussed liver biopsy but patient did not f/u. W Hgb is stable currently, ~9-10. ANC 1.6. Plt count normal. Ferritin previously elevated 1181 in 2013, 358 in 05/2018, 674 in 03/2019 with elevated transferrin saturation. Liver with mild fatty infiltration on sono. 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 breast cancer--2009. 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 s/p bilateral mastectomies/axillary lymphadenectomy. s/p RT to Lt. chestwall. s/p adjuvant chemotherapy - Past Surgical History Past Surgical History: Yes: Appendectomy, , Mastectomy (Bilateral) - Alcohol/Substance Use Hx Alcohol Use: No History of Substance Use: reports: None - Smoking History Smoking history: Never smoked Have you smoked in the past 12 months: No Aproximately how many cigarettes per day: 0 - Social History ADL: Family Assistance Occupation: Unemployed History of Recent Travel: No Home Medications - Allergies Allergies/Adverse Reactions: Allergies Allergy/AdvReac Type Severity Reaction Status Date / Time Sulfa (Sulfonamide Allergy Intermediate Hives Verified 03/19/19 10:19 Antibiotics) [Sulfa(Sulfonamide Antibiotics)] terbinafine HCl Allergy Intermediate Rash Verified 03/19/19 10:19 [From Lamisil] - Home Medications Home Medications: Ambulatory Orders Levothyroxine [Synthroid -] 25 mcg PO DAILY@0700 #30 tablet 06/20/14 Metoprolol Succinate [Toprol XL -] 25 mg PO DAILY 07/19/14 Mauri/D3/Mag11/Zinc/Tool Machinist/Atif/Bor [Caltrate 600+D Plus Tablet] 1 each PO DAILY Omeprazole 20 mg PO DAILY 03/19/19 Insulin Lispro [Humalog] 0 unit SQ AC 04/10/19 Family Disease History - Family Disease History Family Disease History: CA: Grandparent (paternal grandmother --colon ca// maternal grandmother --breast cancer), Father (colon cancer; had kidney stones) , Mother (; also was on dialysis; had no diabetes), Other: Sister (kidney stones younger sister, colon polyps) Review of Systems - Review of Systems Constitutional: reports: Weakness. denies: Fever, Night Sweats Eyes: reports: No Symptoms Cardiovascular: reports: Shortness of Breath. denies: Chest Pain Respiratory: reports: Cough Gastrointestinal: reports: No Symptoms. denies: Diarrhea, Melena, Rectal Bleeding Physical Exam Vital Signs: Vital Signs Temperature 98.8 F 04/18/19 18:00 Pulse Rate 70 04/18/19 18:00 Respiratory Rate 18 04/18/19 18:00 Blood Pressure 155/97 04/18/19 18:00 O2 Sat by Pulse Oximetry (%) 95 04/18/19 09:00 Constitutional: Yes: No Distress, Calm Eyes: Yes: Conjunctiva Clear HENT: Yes: Atraumatic Cardiovascular: Yes: Regular Rate and Rhythm Respiratory: Yes: Regular, Diminished (at bases) Gastrointestinal: Yes: Soft. No: Distention, Palpable Mass, Tenderness Edema: Yes Edema: LLE: 1+, RLE: 1+ Labs: CBC, BMP 04/18/19 05:15 04/18/19 05:15 Assessment/Plan 52F w/HTN, CKD, hx breast cancer s/p bilateral mastectomy, scleroderma, alcoholism (continues to drink) admitted with pre-syncope, found to have EF 30- 35% and bilateral pleural effusions (L>R). Suspect that anemia (Hgb ~10) is 2/2 CKD and other comorbidities, and is unlikely the cause of her generalized weakness and pre-syncope. There was no e/ o nutritional deficiency on prior w/u. SPEP/FLC ratio wnl. TSH persistently high on levothyroxine -- ?hypothyroidism contributing to anemia ?mass seen on TTE not confirmed on CT. Planned for cardiac ischemia eval if malignancy w/u neg. Unclear whether pt has hemochromatosis, transferrin sat may be elevated with etoh use Consider cardiac MRI to eval for iron deposition if CAD is ruled out as a cause of CHF.
[2019-04-18] MEDS: diphenhydrAMINE HCL 25 MG CAPSULE (FP) PO PRN (21:26)
[2019-04-19] MEDS: TRESIBA SQ SCH (06:28)
[2019-04-19] MEDS: METOCLOPRAMIDE HCL 10 MG TABLET (FP) PO SCH ×3 (06:29→18:56)
[2019-04-19] MEDS: INSULIN SLIDING SCALE (NOVOLOG) 1 VIAL SQ SCH ×4 (06:29→23:11)
[2019-04-19] MEDS: LEVOTHYROXINE NA 50 MCG TABLET (FP) PO SCH (06:29)
[2019-04-19] MEDS: metoPROLOL SUCCINATE 25 MG TAB.SR.24H (FP) PO SCH (10:17)
[2019-04-19] MEDS: FUROSEMIDE 40 MG/4 ML INJECTABLE VIAL IVPUSH SCH (10:20)
[2019-04-19] MEDS: TRIAMCINOLONE ACET 0.1% CREAM 15 GM TUBE TP SCH ×2 (10:25→23:23)
--- NOTE | 2019-04-19 10:41 | PN ---
Progress Note (short form) - Note Progress Note: pt seen/ examined awake/ comfortable Hematology consult noted/ appreciated Vital Signs Temp 98.2 F 04/19/19 06:00 Pulse 80 04/19/19 06:00 Resp 18 04/19/19 06:00 BP 162/79 04/19/19 06:00 Pulse Ox 95 04/18/19 21:00 Intake & Output 04/18/19 04/18/19 04/19/19 11:59 23:59 11:59 Intake Total 240 480 Balance 240 480 Intake: Oral 240 480 Other: Voiding Method Diaper Diaper # Unmeasured Voids Void 1 2 1 Active Medications Albuterol/Ipratropium (Duoneb -) 1 amp NEB Q6H PRN PRN Reason: SHORTNESS OF BREATH Last Admin: 04/16/19 20:05 Dose: 1 amp Diphenhydramine HCl (Benadryl -) 25 mg PO DAILY PRN PRN Reason: FOR ITCHING Last Admin: 04/18/19 21:26 Dose: 25 mg Furosemide (Lasix Injection -) 40 mg IVPUSH DAILY [facility] Last Admin: 04/19/19 10:20 Dose: 40 mg Insulin Aspart (Novolog Vial Sliding Scale -) 1 vial SQ HS [facility]; Protocol Last Admin: 04/18/19 21:27 Dose: Not Given Insulin Aspart (Novolog Vial Sliding Scale -) 1 vial SQ TIDAC [facility]; Protocol Last Admin: 04/19/19 06:29 Dose: 3 units Levothyroxine Sodium (Synthroid -) 50 mcg PO DAILY@0700 [facility] Last Admin: 04/19/19 06:29 Dose: 50 mcg Metoclopramide HCl (Reglan -) 10 mg PO TIDAC [facility] Last Admin: 04/19/19 06:29 Dose: Not Given Metoprolol Succinate (Toprol Xl -) 25 mg PO DAILY [facility] Last Admin: 04/19/19 10:17 Dose: 25 mg Non-Formulary Med: (Tresiba Inj) 3 each SQ AM [facility] Last Admin: 04/19/19 06:28 Dose: 3 each Triamcinolone Acetonide (Aristocort 0.1% Cream -) 1 applic TP BID [facility] Last Admin: 04/18/19 21:22 Dose: Not Given CBC, BMP 04/18/19 05:15 Physical Exam Awake/ comfortable S1 S2 regular Lungs crackles+ No pallor Abd-soft, non tender + edema Neuro- a0 x3 PLAN stable monitor labs continue i/v lasix-- monitor renal function monitor bgm Thoracocentesis Pulmonary to follow will follow Problem List - Problems (1) Elevated troponin Code(s): R74.8 - ABNORMAL LEVELS OF OTHER SERUM ENZYMES (2) Lightheadedness Code(s): R42 - DIZZINESS AND GIDDINESS (3) Near syncope Code(s): R55 - SYNCOPE AND COLLAPSE (4) Anemia in chronic kidney disease Code(s): N18.9 - CHRONIC KIDNEY DISEASE, UNSPECIFIED; D63.1 - ANEMIA IN CHRONIC KIDNEY DISEASE
--- NOTE | 2019-04-19 11:20 | PN ---
Progress Note, Physician History of Present Illness: PULMONARY ALERT,LESS DYSPNEIC,+ COUGH,-CP - Current Medication List Current Medications: Active Medications Albuterol/Ipratropium (Duoneb -) 1 amp NEB Q6H PRN PRN Reason: SHORTNESS OF BREATH Last Admin: 04/16/19 20:05 Dose: 1 amp Diphenhydramine HCl (Benadryl -) 25 mg PO DAILY PRN PRN Reason: FOR ITCHING Last Admin: 04/18/19 21:26 Dose: 25 mg Furosemide (Lasix Injection -) 40 mg IVPUSH DAILY [facility] Last Admin: 04/19/19 10:20 Dose: 40 mg Insulin Aspart (Novolog Vial Sliding Scale -) 1 vial SQ HS [facility]; Protocol Last Admin: 04/18/19 21:27 Dose: Not Given Insulin Aspart (Novolog Vial Sliding Scale -) 1 vial SQ TIDAC [facility]; Protocol Last Admin: 04/19/19 06:29 Dose: 3 units Levothyroxine Sodium (Synthroid -) 50 mcg PO DAILY@0700 [facility] Last Admin: 04/19/19 06:29 Dose: 50 mcg Metoclopramide HCl (Reglan -) 10 mg PO TIDAC [facility] Last Admin: 04/19/19 06:29 Dose: Not Given Metoprolol Succinate (Toprol Xl -) 25 mg PO DAILY [facility] Last Admin: 04/19/19 10:17 Dose: 25 mg Non-Formulary Med: (Tresiba Inj) 3 each SQ AM [facility] Last Admin: 04/19/19 06:28 Dose: 3 each Triamcinolone Acetonide (Aristocort 0.1% Cream -) 1 applic TP BID [facility] Last Admin: 04/18/19 21:22 Dose: Not Given - Objective Vital Signs: Vital Signs Temperature 98.2 F 04/19/19 06:00 Pulse Rate 80 04/19/19 06:00 Respiratory Rate 18 04/19/19 06:00 Blood Pressure 162/79 04/19/19 06:00 O2 Sat by Pulse Oximetry (%) 95 04/18/19 21:00 Constitutional: Yes: Well Nourished, Calm Eyes: Yes: WNL HENT: Yes: WNL Neck: Yes: WNL Cardiovascular: Yes: Regular Rate and Rhythm, S1, S2 Respiratory: Yes: Diminished (FEW CRACKLES HERNANDEZ), Rales Gastrointestinal: Yes: Normal Bowel Sounds, Soft Extremities: Yes: WNL Edema: Yes Edema: LLE: Trace, RLE: Trace Labs: CBC, BMP 04/18/19 05:15 04/18/19 05:15 INR, PTT INR 0.93 (0.83-1.09) 04/18/19 05:15 Assessment/Plan - Problems (1) Breast cancer Code(s): C50.919 - MALIGNANT NEOPLASM OF UNSP SITE OF UNSPECIFIED FEMALE BREAST (2) Acute renal failure superimposed on chronic kidney disease Code(s): N17.9 - ACUTE KIDNEY FAILURE, UNSPECIFIED; N18.9 - CHRONIC KIDNEY DISEASE, UNSPECIFIED (3) Anemia Code(s): D64.9 - ANEMIA, UNSPECIFIED (4) Fatty liver, alcoholic Code(s): K70.0 - ALCOHOLIC FATTY LIVER (5) Pleural effusion Code(s): J90 - PLEURAL EFFUSION, NOT ELSEWHERE CLASSIFIED (6) Scleroderma Code(s): M34.9 - SYSTEMIC SCLEROSIS, UNSPECIFIED (7) FH: mastectomy Code(s): Z84.89 - FAMILY HISTORY OF OTHER SPECIFIED CONDITIONS Assessment/Plan BILATERAL PLEURAL EFFUSIONS LEFT (PARTIALLY LOCULATED) GREATER THAN RIGHT WITH COMPRESSIVE ATELECTASIS INCREASED OVER 12 MONTHS S/P THORACENTESIS 2018 WHICH REVEALED TRANSUDATE WITH RARE ATYPICAL CELLS WHICH WAS THOUGHT TO BE REACTIVE H/O OF BREAST CA S/P BILATERAL MASTECTOMY S/P RT S/P CHEMOTX ECHO REVEALS EF 30-35% WITH DIASTOLIC DYSFUNCTION AND ? PLEURAL MASS NOT SEEN ON CT CHEST (MAY REPRESENT LOCULATED FLUID OR COMPRESSIVE ATELECTASIS ) REPEAT THORACENTESIS ON LEFT FOR BOTH THERAPEUTIC AND DIAGNOSTIC PURPOSES. CONTINUE SUPPLEMENTAL O2 BRONCHODILATORS TRIAL OF DIURETICS DR GONCALVES Problem List - Problems (1) Breast cancer Code(s): C50.919 - MALIGNANT NEOPLASM OF UNSP SITE OF UNSPECIFIED FEMALE BREAST (2) Acute renal failure superimposed on chronic kidney disease Code(s): N17.9 - ACUTE KIDNEY FAILURE, UNSPECIFIED; N18.9 - CHRONIC KIDNEY DISEASE, UNSPECIFIED (3) Anemia Code(s): D64.9 - ANEMIA, UNSPECIFIED (4) Fatty liver, alcoholic Code(s): K70.0 - ALCOHOLIC FATTY LIVER (5) Pleural effusion Code(s): J90 - PLEURAL EFFUSION, NOT ELSEWHERE CLASSIFIED (6) Scleroderma Code(s): M34.9 - SYSTEMIC SCLEROSIS, UNSPECIFIED (7) FH: mastectomy Code(s): Z84.89 - FAMILY HISTORY OF OTHER SPECIFIED CONDITIONS
[2019-04-19] MEDS: ALBUTEROL SO4 2.5/IPRATROPIUM 0.5 INH SOL 3 ML VIAL.NEB. NEB PRN ×2 (16:15→21:27)
[2019-04-19 18:11] LABS: BF WBC & OTHER NUCLEATED CELLS 118 /mm3
[2019-04-19 22:02] LABS: BODY FLUID MESOTHELIAL 90 %
[2019-04-19] MEDS: diphenhydrAMINE HCL 25 MG CAPSULE (FP) PO PRN (23:11)
[2019-04-19] MEDS ORDERED: ACETAMINOPHEN 325 MG TABLET (FP) PO ONE (23:18)
[2019-04-20] MEDS: INSULIN SLIDING SCALE (NOVOLOG) 1 VIAL SQ SCH ×4 (06:40→23:10)
[2019-04-20] MEDS: METOCLOPRAMIDE HCL 10 MG TABLET (FP) PO SCH ×3 (06:40→17:17)
[2019-04-20] MEDS: LEVOTHYROXINE NA 50 MCG TABLET (FP) PO SCH (06:40)
[2019-04-20] MEDS: TRESIBA SQ SCH (06:41)
[2019-04-20] MEDS: TRIAMCINOLONE ACET 0.1% CREAM 15 GM TUBE TP SCH ×2 (10:16→23:16)
[2019-04-20] MEDS: metoPROLOL SUCCINATE 25 MG TAB.SR.24H (FP) PO SCH (11:23)
[2019-04-20] MEDS: FUROSEMIDE 40 MG/4 ML INJECTABLE VIAL IVPUSH SCH (11:23)
--- NOTE | 2019-04-20 11:45 | PN ---
Progress Note, Physician History of Present Illness: pulmonary alert,comfortable,-resp distress. pt s/p thoracentesis yesterday tolerated procedure well w/o complications. pleural fluid chemistries pending - Current Medication List Current Medications: Active Medications Diphenhydramine HCl (Benadryl -) 25 mg PO DAILY PRN PRN Reason: FOR ITCHING Last Admin: 04/19/19 23:11 Dose: 25 mg Furosemide (Lasix Injection -) 40 mg IVPUSH DAILY [facility] Last Admin: 04/19/19 10:20 Dose: 40 mg Insulin Aspart (Novolog Vial Sliding Scale -) 1 vial SQ HS [facility]; Protocol Last Admin: 04/19/19 23:11 Dose: 2 units Insulin Aspart (Novolog Vial Sliding Scale -) 1 vial SQ TIDAC [facility]; Protocol Last Admin: 04/20/19 06:40 Dose: 4 units Levothyroxine Sodium (Synthroid -) 50 mcg PO DAILY@0700 [facility] Last Admin: 04/20/19 06:40 Dose: 50 mcg Metoclopramide HCl (Reglan -) 10 mg PO TIDAC [facility] Last Admin: 04/20/19 06:40 Dose: 10 mg Metoprolol Succinate (Toprol Xl -) 25 mg PO DAILY [facility] Last Admin: 04/19/19 10:17 Dose: 25 mg Non-Formulary Med: (Tresiba Inj) 3 each SQ AM [facility] Last Admin: 04/20/19 06:41 Dose: 3 each Triamcinolone Acetonide (Aristocort 0.1% Cream -) 1 applic TP BID [facility] Last Admin: 04/19/19 23:23 Dose: Not Given - Objective Vital Signs: Vital Signs Temperature 97.9 F 04/20/19 09:00 Pulse Rate 83 04/20/19 09:00 Respiratory Rate 20 04/20/19 09:00 Blood Pressure 130/77 04/20/19 09:00 O2 Sat by Pulse Oximetry (%) 97 04/20/19 09:00 Constitutional: Yes: Well Nourished, Calm Eyes: Yes: WNL HENT: Yes: WNL Neck: Yes: WNL Cardiovascular: Yes: Regular Rate and Rhythm, S1, S2 Respiratory: Yes: Diminished Gastrointestinal: Yes: Normal Bowel Sounds, Soft Extremities: Yes: WNL Edema: No Labs: Assessment/Plan - Problems (1) Breast cancer Code(s): C50.919 - MALIGNANT NEOPLASM OF UNSP SITE OF UNSPECIFIED FEMALE BREAST (2) Acute renal failure superimposed on chronic kidney disease Code(s): N17.9 - ACUTE KIDNEY FAILURE, UNSPECIFIED; N18.9 - CHRONIC KIDNEY DISEASE, UNSPECIFIED (3) Anemia Code(s): D64.9 - ANEMIA, UNSPECIFIED (4) Fatty liver, alcoholic Code(s): K70.0 - ALCOHOLIC FATTY LIVER (5) Pleural effusion Code(s): J90 - PLEURAL EFFUSION, NOT ELSEWHERE CLASSIFIED (6) Scleroderma Code(s): M34.9 - SYSTEMIC SCLEROSIS, UNSPECIFIED (7) FH: mastectomy Code(s): Z84.89 - FAMILY HISTORY OF OTHER SPECIFIED CONDITIONS Assessment/Plan BILATERAL PLEURAL EFFUSIONS LEFT (PARTIALLY LOCULATED) GREATER THAN RIGHT WITH COMPRESSIVE ATELECTASIS INCREASED OVER 12 MONTHS S/P THORACENTESIS 2018 WHICH REVEALED TRANSUDATE WITH RARE ATYPICAL CELLS WHICH WAS THOUGHT TO BE REACTIVE H/O OF BREAST CA S/P BILATERAL MASTECTOMY S/P RT S/P CHEMOTX ECHO REVEALS EF 30-35% WITH DIASTOLIC DYSFUNCTION AND ? PLEURAL MASS NOT SEEN ON CT CHEST (MAY REPRESENT LOCULATED FLUID OR COMPRESSIVE ATELECTASIS ) CHECK RESULTS OF PLEURAL FLUID CHEMISTRIES,CYTOLOGY SUPPLEMENTAL O2 BRONCHODILATORS DIURETICS DR GONCALVES Problem List - Problems (1) Breast cancer Code(s): C50.919 - MALIGNANT NEOPLASM OF UNSP SITE OF UNSPECIFIED FEMALE BREAST (2) Acute renal failure superimposed on chronic kidney disease Code(s): N17.9 - ACUTE KIDNEY FAILURE, UNSPECIFIED; N18.9 - CHRONIC KIDNEY DISEASE, UNSPECIFIED (3) Anemia Code(s): D64.9 - ANEMIA, UNSPECIFIED (4) Fatty liver, alcoholic Code(s): K70.0 - ALCOHOLIC FATTY LIVER (5) Pleural effusion Code(s): J90 - PLEURAL EFFUSION, NOT ELSEWHERE CLASSIFIED (6) Scleroderma Code(s): M34.9 - SYSTEMIC SCLEROSIS, UNSPECIFIED (7) FH: mastectomy Code(s): Z84.89 - FAMILY HISTORY OF OTHER SPECIFIED CONDITIONS
[2019-04-20 12:24] LABS: HEMATOCRIT 28.9 % (32.4-45.2); HEMOGLOBIN 9.7 GM/dL (10.7-15.3); MCH 31.2 pg (25.7-33.7); MCHC 33.6 g/dl (32.0-36.0); MEAN PLT VOLUME 7.3 fl (7.5-11.1); PLATELET COUNT 233 K/MM3 (134-434); RBC 3.11 M/mm3 (3.60-5.2); WHITE BLOOD COUNT 2.9 K/mm3 (4.0-10.0)
[2019-04-20 12:52] LABS: BLOOD UREA NITROGEN 33.7 mg/dL (7-18); CALCIUM 8.5 mg/dL (8.5-10.1); CREATININE 1.7 mg/dL (0.55-1.3); POTASSIUM 4.9 mmol/L (3.5-5.1)
[2019-04-20 13:24] LABS: BF WBC & OTHER NUCLEATED CELLS 283 /mm3
--- NOTE | 2019-04-20 13:45 | PN ---
Progress Note (short form) - Note Progress Note: Feels better s/p Thoracentesis Blood sugar fluctuating No hypos Vital Signs Period Temp Pulse Resp BP Sys/Sibley Pulse Ox Last 24 Hr 97.6 F-98.6 F 78-108 18-20 128-152/75-77 90-97 Neck: Supple, No JVD HEENT: PERRL, EOMI Lungs: Improved air entry, few basal crackles CVS: S1S2 Abd: Benign Ext: No edema CMP Sodium 134 mmol/L (136-145) L 04/20/19 11:45 Potassium 4.9 mmol/L (3.5-5.1) 04/20/19 11:45 Chloride 99 mmol/L (98-107) 04/20/19 11:45 Carbon Dioxide 28 mmol/L (21-32) 04/20/19 11:45 Anion Gap 7 MMOL/L (8-16) L 04/20/19 11:45 BUN 33.7 mg/dL (7-18) H 04/20/19 11:45 Creatinine 1.7 mg/dL (0.55-1.3) H 04/20/19 11:45 Est GFR (CKD-EPI)AfAm 39.22 04/20/19 11:45 Est GFR (CKD-EPI)NonAf 33.84 04/20/19 11:45 POC Glucometer 295 UNITS (80-120) 04/20/19 11:55 Random Glucose 320 mg/dL (74-106) H* 04/20/19 11:45 Calcium 8.5 mg/dL (8.5-10.1) 04/20/19 11:45 Phosphorus 4.6 mg/dL (2.5-4.9) 04/11/19 05:40 Magnesium 1.5 mg/dL (1.8-2.4) L 04/11/19 05:40 Total Bilirubin 0.3 mg/dL (0.2-1) 04/18/19 05:15 AST 19 U/L (15-37) 04/18/19 05:15 ALT 13 U/L (13-61) 04/18/19 05:15 Alkaline Phosphatase 208 U/L (45-117) H 04/18/19 05:15 Creatine Kinase 62 U/L (26-192) 04/10/19 15:30 Troponin I 0.07 ng/ml (0.00-0.05) H 04/11/19 01:00 Total Protein 5.4 g/dl (6.4-8.2) L 04/18/19 05:15 Albumin 2.1 g/dl (3.4-5.0) L 04/18/19 05:15 Triglycerides 167 mg/dL (0-150) H 04/11/19 05:40 Cholesterol 165 mg/dL (50-200) 04/11/19 05:40 Total LDL Cholesterol 67 mg/dL (5-100) 04/11/19 05:40 HDL Cholesterol 85 mg/dL (40-60) H 04/11/19 05:40 TSH 6.76 uIU/ml (0.358-3.74) H 04/20/19 11:45 Free T4 1.34 ng/dl (0.76-1.46) 04/20/19 11:45 Current Medications Generic Name Dose Route Start Last Admin Trade Name Freq PRN Reason Stop Dose Admin Diphenhydramine HCl 25 mg 04/15/19 10:55 04/19/19 23:11 Benadryl - PO 25 mg DAILY PRN Administration FOR ITCHING Furosemide 40 mg 04/16/19 12:00 04/20/19 11:23 Lasix Injection - IVPUSH 40 mg DAILY [facility] Administration Insulin Aspart 1 vial 04/13/19 22:00 04/19/19 23:11 Novolog Vial Sliding Scale - SQ 2 units HS [facility] Administration Protocol Insulin Aspart 1 vial 04/16/19 13:28 04/20/19 12:39 Novolog Vial Sliding Scale - SQ 3 units TIDAC [facility] Administration Protocol Levothyroxine Sodium 50 mcg 04/15/19 07:00 04/20/19 06:40 Synthroid - PO 50 mcg DAILY@0700 [facility] Administration Metoclopramide HCl 10 mg 04/12/19 16:30 04/20/19 10:42 Reglan - PO Not Given TIDAC [facility] Metoprolol Succinate 25 mg 04/11/19 10:00 04/20/19 11:23 Toprol Xl - PO 25 mg DAILY [facility] Administration Non-Formulary Med: 3 each 04/15/19 07:00 04/20/19 06:41 Tresiba Inj SQ 3 each AM [facility] Administration Triamcinolone Acetonide 1 applic 04/14/19 22:00 04/19/19 23:23 Aristocort 0.1% Cream - TP Not Given BID [facility] AP: T1DM Hypothyroidism: TSH 6.76 now Cough H/O Breast Ca Increase Tresiba 4 units daily Increase Novolog Coverage Contnue LT4 50mcg Qd for now Mix Ceftriaxone in non dextrose solution Ceftriaxone Will F/U
[2019-04-20 15:22] LABS: BODY FLUID MESOTHELIAL 61 %; BODY FLUID MONOCYTE 13 %
--- NOTE | 2019-04-20 18:00 | PN ---
Progress Note (short form) - Note Progress Note: s/p thoracentesis feeling better no distress Vital Signs - 24 hr 04/19/19 04/20/19 04/20/19 21:00 01:00 05:00 Temperature 98.6 F 98.6 F 98.4 F Pulse Rate 99 H 87 78 Respiratory 20 20 20 Rate Blood Pressure 152/76 130/76 128/77 O2 Sat by Pulse 95 Oximetry (%) 04/20/19 04/20/19 04/20/19 09:00 12:40 14:30 Temperature 97.9 F 98 F Pulse Rate 83 108 H 77 Respiratory 20 18 Rate Blood Pressure 130/77 129/74 O2 Sat by Pulse 97 90 L Oximetry (%) Current Medications Generic Name Dose Route Start Last Admin Trade Name Freq PRN Reason Stop Dose Admin Diphenhydramine HCl 25 mg 04/15/19 10:55 04/19/19 23:11 Benadryl - PO 25 mg DAILY PRN Administration FOR ITCHING Furosemide 40 mg 04/16/19 12:00 04/20/19 11:23 Lasix Injection - IVPUSH 40 mg DAILY [facility] Administration Insulin Aspart 1 vial 04/13/19 22:00 04/19/19 23:11 Novolog Vial Sliding Scale - SQ 2 units HS [facility] Administration Protocol Insulin Aspart 1 vial 04/20/19 17:35 Novolog Vial Sliding Scale - SQ TIDAC [facility] Protocol Levothyroxine Sodium 50 mcg 04/15/19 07:00 04/20/19 06:40 Synthroid - PO 50 mcg DAILY@0700 [facility] Administration Metoclopramide HCl 10 mg 04/12/19 16:30 04/20/19 17:17 Reglan - PO Not Given TIDAC [facility] Metoprolol Succinate 25 mg 04/11/19 10:00 04/20/19 11:23 Toprol Xl - PO 25 mg DAILY [facility] Administration Non-Formulary Medication 4 each 04/21/19 07:00 Non-Formulary Med SQ AM [facility] Triamcinolone Acetonide 1 applic 04/14/19 22:00 04/20/19 10:16 Aristocort 0.1% Cream - TP 1 applic BID [facility] Administration Laboratory Results - last 24 hr 04/19/19 04/19/19 04/20/19 14:45 23:05 06:36 WBC RBC Hgb Hct MCV MCH MCHC RDW Plt Count MPV Sodium Potassium Chloride Carbon Dioxide Anion Gap BUN Creatinine Est GFR (CKD-EPI)AfAm Est GFR (CKD-EPI)NonAf POC Glucometer 315 322 Random Glucose Calcium TSH Free T4 Fluid Source Pleural Fluid WBC 118 Fluid RBC 175 Fluid Neutrophils 5 Fluid Lymphocytes 5 Pleural Monocytes Pleural Mesothelial 90 04/20/19 04/20/19 04/20/19 10:15 11:45 11:45 WBC 2.9 L RBC 3.11 L Hgb 9.7 L Hct 28.9 L MCV 93.0 MCH 31.2 MCHC 33.6 RDW 16.0 H Plt Count 233 MPV 7.3 L Sodium 134 L Potassium 4.9 Chloride 99 Carbon Dioxide 28 Anion Gap 7 L BUN 33.7 H Creatinine 1.7 H Est GFR (CKD-EPI)AfAm 39.22 Est GFR (CKD-EPI)NonAf 33.84 POC Glucometer Random Glucose 320 H* Calcium 8.5 TSH 6.76 H Free T4 1.34 Fluid Source Pleural Fluid WBC 283 Fluid RBC 1175 Fluid Neutrophils 8 Fluid Lymphocytes 18 Pleural Monocytes 13 Pleural Mesothelial 61 04/20/19 04/20/19 11:55 16:51 WBC RBC Hgb Hct MCV MCH MCHC RDW Plt Count MPV Sodium Potassium Chloride Carbon Dioxide Anion Gap BUN Creatinine Est GFR (CKD-EPI)AfAm Est GFR (CKD-EPI)NonAf POC Glucometer 295 320 Random Glucose Calcium TSH Free T4 Fluid Source Fluid WBC Fluid RBC Fluid Neutrophils Fluid Lymphocytes Pleural Monocytes Pleural Mesothelial Physical Exam awake/ comfortable S1 S2 regular Lungs crackles+decreased No pallor Abd-soft, non tender + edema decreased Neuro- a0 x3 PLAN iv lasix awaiting pleural fluid studies OOB PT eval Hematology eval noted recheck Pre and post O2 sat Problem List - Problems (1) Pleural mass Code(s): J94.9 - PLEURAL CONDITION, UNSPECIFIED (2) Elevated troponin Code(s): R74.8 - ABNORMAL LEVELS OF OTHER SERUM ENZYMES (3) Lightheadedness Code(s): R42 - DIZZINESS AND GIDDINESS (4) Near syncope Code(s): R55 - SYNCOPE AND COLLAPSE (5) Acute renal failure superimposed on chronic kidney disease Code(s): N17.9 - ACUTE KIDNEY FAILURE, UNSPECIFIED; N18.9 - CHRONIC KIDNEY DISEASE, UNSPECIFIED (6) Anemia Code(s): D64.9 - ANEMIA, UNSPECIFIED
[2019-04-20] MEDS ORDERED: ACETAMINOPHEN 325 MG TABLET (FP) PO PRN ×2 (22:57→23:34)
[2019-04-20] MEDS: diphenhydrAMINE HCL 25 MG CAPSULE (FP) PO PRN (23:08)
[2019-04-21] MEDS: INSULIN SLIDING SCALE (NOVOLOG) 1 VIAL SQ SCH ×4 (06:12→21:27)
[2019-04-21] MEDS: METOCLOPRAMIDE HCL 10 MG TABLET (FP) PO SCH ×3 (06:17→17:00)
[2019-04-21] MEDS: LEVOTHYROXINE NA 50 MCG TABLET (FP) PO SCH (06:17)
[2019-04-21] MEDS: NON-FORMULARY MED SQ SCH (06:18)
[2019-04-21 07:18] LABS: BASO % 1.3 % (0-2.0); EOS % 7.1 % (0-4.5); HEMATOCRIT 25.8 % (32.4-45.2); HEMOGLOBIN 8.9 GM/dL (10.7-15.3); LYMPH % 23.7 % (8-40); MCH 31.8 pg (25.7-33.7); MCHC 34.6 g/dl (32.0-36.0); MEAN CELL VOLUME 91.8 fl (80-96); MEAN PLT VOLUME 7.7 fl (7.5-11.1); MONO % 14.6 % (3.8-10.2); NEUT % 53.3 % (42.8-82.8); PLATELET COUNT 243 K/MM3 (134-434); RBC 2.81 M/mm3 (3.60-5.2); RDW 15.4 % (11.6-15.6); WHITE BLOOD COUNT 3.1 K/mm3 (4.0-10.0)
[2019-04-21 07:35] LABS: BILIRUBIN,TOTAL 0.4 mg/dL (0.2-1); BLOOD UREA NITROGEN 34.4 mg/dL (7-18); CALCIUM 7.8 mg/dL (8.5-10.1); CREATININE 1.5 mg/dL (0.55-1.3); POTASSIUM 4.3 mmol/L (3.5-5.1); TOT PROT 5.1 g/dl (6.4-8.2)
[2019-04-21] MEDS: metoPROLOL SUCCINATE 25 MG TAB.SR.24H (FP) PO SCH (10:06)
[2019-04-21] MEDS: FUROSEMIDE 40 MG/4 ML INJECTABLE VIAL IVPUSH SCH (10:06)
--- NOTE | 2019-04-21 10:33 | PN ---
Progress Note, Physician History of Present Illness: PULMONARY ALERT,COMFORTABLE,-RESP DISTRESS. PT S/P R THORACENTESIS YESTERDAY TOLERATED PROCEDURE WELL - Current Medication List Current Medications: Active Medications Acetaminophen (Tylenol -) 650 mg PO Q6H PRN PRN Reason: Fever Or Pain Last Admin: 04/20/19 23:08 Dose: 650 mg Diphenhydramine HCl (Benadryl -) 25 mg PO DAILY PRN PRN Reason: FOR ITCHING Last Admin: 04/20/19 23:08 Dose: 25 mg Furosemide (Lasix Injection -) 40 mg IVPUSH DAILY [facility] Last Admin: 04/21/19 10:06 Dose: 40 mg Insulin Aspart (Novolog Vial Sliding Scale -) 1 vial SQ HS [facility]; Protocol Last Admin: 04/20/19 23:10 Dose: 3 units Insulin Aspart (Novolog Vial Sliding Scale -) 1 vial SQ TIDAC [facility]; Protocol Last Admin: 04/21/19 06:12 Dose: 2 units Levothyroxine Sodium (Synthroid -) 50 mcg PO DAILY@0700 [facility] Last Admin: 04/21/19 06:17 Dose: 50 mcg Metoclopramide HCl (Reglan -) 10 mg PO TIDAC [facility] Last Admin: 04/21/19 06:17 Dose: Not Given Metoprolol Succinate (Toprol Xl -) 25 mg PO DAILY [facility] Last Admin: 04/21/19 10:06 Dose: 25 mg Non-Formulary Medication (Non-Formulary Med) 4 each SQ AM [facility] Last Admin: 04/21/19 06:18 Dose: 4 each Triamcinolone Acetonide (Aristocort 0.1% Cream -) 1 applic TP BID [facility] Last Admin: 04/20/19 23:16 Dose: Not Given - Objective Vital Signs: Vital Signs Temperature 98.2 F 04/21/19 05:00 Pulse Rate 95 H 04/21/19 05:00 Respiratory Rate 18 04/21/19 05:00 Blood Pressure 124/69 04/21/19 05:00 O2 Sat by Pulse Oximetry (%) 95 04/20/19 21:00 Constitutional: Yes: Well Nourished, Calm Eyes: Yes: WNL HENT: Yes: WNL Neck: Yes: WNL Cardiovascular: Yes: Regular Rate and Rhythm, S1, S2 Respiratory: Yes: Rales (BIBASILAR CRACKLES) Gastrointestinal: Yes: Normal Bowel Sounds, Soft Extremities: Yes: WNL Edema: No Labs: CBC, BMP 04/21/19 05:15 04/21/19 05:15 INR, PTT INR 0.93 (0.83-1.09) 04/18/19 05:15 Assessment/Plan - Problems (1) Breast cancer Code(s): C50.919 - MALIGNANT NEOPLASM OF UNSP SITE OF UNSPECIFIED FEMALE BREAST (2) Acute renal failure superimposed on chronic kidney disease Code(s): N17.9 - ACUTE KIDNEY FAILURE, UNSPECIFIED; N18.9 - CHRONIC KIDNEY DISEASE, UNSPECIFIED (3) Anemia Code(s): D64.9 - ANEMIA, UNSPECIFIED (4) Fatty liver, alcoholic Code(s): K70.0 - ALCOHOLIC FATTY LIVER (5) Pleural effusion Code(s): J90 - PLEURAL EFFUSION, NOT ELSEWHERE CLASSIFIED (6) Scleroderma Code(s): M34.9 - SYSTEMIC SCLEROSIS, UNSPECIFIED (7) FH: mastectomy Code(s): Z84.89 - FAMILY HISTORY OF OTHER SPECIFIED CONDITIONS Assessment/Plan BILATERAL PLEURAL EFFUSIONS LEFT (PARTIALLY LOCULATED) GREATER THAN RIGHT WITH COMPRESSIVE ATELECTASIS INCREASED OVER 12 MONTHS S/P THORACENTESIS 2018 WHICH REVEALED TRANSUDATE WITH RARE ATYPICAL CELLS WHICH WAS THOUGHT TO BE REACTIVE H/O OF BREAST CA S/P BILATERAL MASTECTOMY S/P RT S/P CHEMOTX ECHO REVEALS EF 30-35% WITH DIASTOLIC DYSFUNCTION AND ? PLEURAL MASS NOT SEEN ON CT CHEST (MAY REPRESENT LOCULATED FLUID OR COMPRESSIVE ATELECTASIS ) CHECK RESULTS OF PLEURAL FLUID CHEMISTRIES,CYTOLOGY,BOTH PENDING SUPPLEMENTAL O2 BRONCHODILATORS DIURETICS DR GONCALVES Problem List - Problems (1) Breast cancer Code(s): C50.919 - MALIGNANT NEOPLASM OF UNSP SITE OF UNSPECIFIED FEMALE BREAST (2) Acute renal failure superimposed on chronic kidney disease Code(s): N17.9 - ACUTE KIDNEY FAILURE, UNSPECIFIED; N18.9 - CHRONIC KIDNEY DISEASE, UNSPECIFIED (3) Anemia Code(s): D64.9 - ANEMIA, UNSPECIFIED (4) Fatty liver, alcoholic Code(s): K70.0 - ALCOHOLIC FATTY LIVER (5) Pleural effusion Code(s): J90 - PLEURAL EFFUSION, NOT ELSEWHERE CLASSIFIED (6) Scleroderma Code(s): M34.9 - SYSTEMIC SCLEROSIS, UNSPECIFIED (7) FH: mastectomy Code(s): Z84.89 - FAMILY HISTORY OF OTHER SPECIFIED CONDITIONS
--- NOTE | 2019-04-21 11:46 | PN ---
Progress Note (short form) - Note Progress Note: s/p thoracentesis feeling better no distress Vital Signs - 24 hr 04/20/19 04/20/19 04/20/19 12:40 14:30 17:00 Temperature 98 F 99.3 F Pulse Rate 108 H 77 85 Respiratory 18 20 Rate Blood Pressure 129/74 132/81 O2 Sat by Pulse 90 L Oximetry (%) 04/20/19 04/21/19 04/21/19 21:00 01:00 05:00 Temperature 98.4 F 98.2 F 98.2 F Pulse Rate 85 82 95 H Respiratory 20 18 18 Rate Blood Pressure 151/92 127/77 124/69 O2 Sat by Pulse 95 Oximetry (%) 04/21/19 09:00 Temperature 98.6 F Pulse Rate 76 Respiratory 18 Rate Blood Pressure 124/72 O2 Sat by Pulse 96 Oximetry (%) Current Medications Generic Name Dose Route Start Last Admin Trade Name Freq PRN Reason Stop Dose Admin Acetaminophen 650 mg 04/20/19 22:57 04/20/19 23:08 Tylenol - PO 650 mg Q6H PRN Administration Fever Or Pain Diphenhydramine HCl 25 mg 04/15/19 10:55 04/20/19 23:08 Benadryl - PO 25 mg DAILY PRN Administration FOR ITCHING Furosemide 40 mg 04/16/19 12:00 04/21/19 10:06 Lasix Injection - IVPUSH 40 mg DAILY [facility] Administration Insulin Aspart 1 vial 04/13/19 22:00 04/20/19 23:10 Novolog Vial Sliding Scale - SQ 3 units HS [facility] Administration Protocol Insulin Aspart 1 vial 04/21/19 07:00 04/21/19 06:12 Novolog Vial Sliding Scale - SQ 2 units TIDAC [facility] Administration Protocol Levothyroxine Sodium 50 mcg 04/15/19 07:00 04/21/19 06:17 Synthroid - PO 50 mcg DAILY@0700 [facility] Administration Metoclopramide HCl 10 mg 04/12/19 16:30 04/21/19 06:17 Reglan - PO Not Given TIDAC [facility] Metoprolol Succinate 25 mg 04/11/19 10:00 04/21/19 10:06 Toprol Xl - PO 25 mg DAILY [facility] Administration Non-Formulary Medication 4 each 04/21/19 07:00 04/21/19 06:18 Non-Formulary Med SQ 4 each AM [facility] Administration Triamcinolone Acetonide 1 applic 04/14/19 22:00 04/20/19 23:16 Aristocort 0.1% Cream - TP Not Given BID [facility] Laboratory Results - last 24 hr 04/20/19 04/20/19 04/20/19 10:15 11:45 11:45 WBC 2.9 L RBC 3.11 L Hgb 9.7 L Hct 28.9 L MCV 93.0 MCH 31.2 MCHC 33.6 RDW 16.0 H Plt Count 233 MPV 7.3 L Absolute Neuts (auto) Neutrophils % Lymphocytes % Monocytes % Eosinophils % Basophils % Nucleated RBC % Sodium 134 L Potassium 4.9 Chloride 99 Carbon Dioxide 28 Anion Gap 7 L BUN 33.7 H Creatinine 1.7 H Est GFR (CKD-EPI)AfAm 39.22 Est GFR (CKD-EPI)NonAf 33.84 POC Glucometer Random Glucose 320 H* Calcium 8.5 Total Bilirubin AST ALT Alkaline Phosphatase Total Protein Albumin TSH 6.76 H Free T4 1.34 Fluid Source Pleural Fluid WBC 283 Fluid RBC 1175 Fluid Neutrophils 8 Fluid Lymphocytes 18 Pleural Monocytes 13 Pleural Mesothelial 61 04/20/19 04/20/19 04/20/19 11:55 16:51 22:42 WBC RBC Hgb Hct MCV MCH MCHC RDW Plt Count MPV Absolute Neuts (auto) Neutrophils % Lymphocytes % Monocytes % Eosinophils % Basophils % Nucleated RBC % Sodium Potassium Chloride Carbon Dioxide Anion Gap BUN Creatinine Est GFR (CKD-EPI)AfAm Est GFR (CKD-EPI)NonAf POC Glucometer 295 320 376 Random Glucose Calcium Total Bilirubin AST ALT Alkaline Phosphatase Total Protein Albumin TSH Free T4 Fluid Source Fluid WBC Fluid RBC Fluid Neutrophils Fluid Lymphocytes Pleural Monocytes Pleural Mesothelial 04/21/19 04/21/19 04/21/19 05:15 05:15 05:59 WBC 3.1 L RBC 2.81 L Hgb 8.9 L Hct 25.8 L MCV 91.8 MCH 31.8 MCHC 34.6 RDW 15.4 Plt Count 243 MPV 7.7 Absolute Neuts (auto) 1.7 Neutrophils % 53.3 Lymphocytes % 23.7 Monocytes % 14.6 H Eosinophils % 7.1 H Basophils % 1.3 Nucleated RBC % 0 Sodium 134 L Potassium 4.3 Chloride 101 Carbon Dioxide 25 Anion Gap 8 BUN 34.4 H Creatinine 1.5 H Est GFR (CKD-EPI)AfAm 45.62 Est GFR (CKD-EPI)NonAf 39.36 POC Glucometer 154 Random Glucose 145 H Calcium 7.8 L Total Bilirubin 0.4 AST 22 ALT 12 L Alkaline Phosphatase 199 H Total Protein 5.1 L Albumin 2.0 L TSH Free T4 Fluid Source Fluid WBC Fluid RBC Fluid Neutrophils Fluid Lymphocytes Pleural Monocytes Pleural Mesothelial 04/21/19 11:36 WBC RBC Hgb Hct MCV MCH MCHC RDW Plt Count MPV Absolute Neuts (auto) Neutrophils % Lymphocytes % Monocytes % Eosinophils % Basophils % Nucleated RBC % Sodium Potassium Chloride Carbon Dioxide Anion Gap BUN Creatinine Est GFR (CKD-EPI)AfAm Est GFR (CKD-EPI)NonAf POC Glucometer 198 Random Glucose Calcium Total Bilirubin AST ALT Alkaline Phosphatase Total Protein Albumin TSH Free T4 Fluid Source Fluid WBC Fluid RBC Fluid Neutrophils Fluid Lymphocytes Pleural Monocytes Pleural Mesothelial Physical Exam awake/ comfortable S1 S2 regular Lungs crackles+decreased rt >left No pallor Abd-soft, non tender + edema decreased Neuro- a0 x3 PLAN iv lasix awaiting pleural fluid studies-- aviating cytology will speak with cardiology in regards to stress test while inpatient OOB PT eval Hematology eval noted did not qualify for O2 Problem List - Problems (1) Pleural mass Code(s): J94.9 - PLEURAL CONDITION, UNSPECIFIED (2) Elevated troponin Code(s): R74.8 - ABNORMAL LEVELS OF OTHER SERUM ENZYMES (3) Lightheadedness Code(s): R42 - DIZZINESS AND GIDDINESS (4) Near syncope Code(s): R55 - SYNCOPE AND COLLAPSE (5) Acute renal failure superimposed on chronic kidney disease Code(s): N17.9 - ACUTE KIDNEY FAILURE, UNSPECIFIED; N18.9 - CHRONIC KIDNEY DISEASE, UNSPECIFIED (6) Anemia Code(s): D64.9 - ANEMIA, UNSPECIFIED
--- NOTE | 2019-04-21 12:00 | PN ---
Progress Note (short form) - Note Progress Note: pt s/p thoracentesis pending cytology results. nuclear stress test ordered to evaluate for ischemia in setting of cardiomyopathy. keep npo after midnight tonight for test tomorrow.
[2019-04-21 12:16] LABS: BODY FLUID ALBUMIN 0.5 g/dL (.)
[2019-04-21 12:16] LABS: BODY FLUID ALBUMIN 0.6 g/dL (.)
--- NOTE | 2019-04-21 19:17 | PN ---
Progress Note (short form) - Note Progress Note: Patient seen and examined Denies significant chest pain or SOB Sitting in chair watching Jeopardy Last Vital Signs Temp Pulse Resp BP Pulse Ox 98 F 77 20 117/58 L 96 04/21/19 14:20 04/21/19 14:20 04/21/19 14:20 04/21/19 14:20 04/21/19 09:00 Lungs Diminished breath sounds ; no definite egophony Cor-RSR Chest wall without evidence of local recurrence No significant LE edema CBC, BMP 04/21/19 05:15 04/21/19 05:15 Current Medications Generic Name Dose Route Start Last Admin Trade Name Freq PRN Reason Stop Dose Admin Acetaminophen 650 mg 04/20/19 22:57 04/20/19 23:08 Tylenol - PO 650 mg Q6H PRN Administration Fever Or Pain Diphenhydramine HCl 25 mg 04/15/19 10:55 04/20/19 23:08 Benadryl - PO 25 mg DAILY PRN Administration FOR ITCHING Furosemide 40 mg 04/16/19 12:00 04/21/19 10:06 Lasix Injection - IVPUSH 40 mg DAILY TERESITA Administration Insulin Aspart 1 vial 04/13/19 22:00 04/20/19 23:10 Novolog Vial Sliding Scale - SQ 3 units HS TERESITA Administration Protocol Insulin Aspart 1 vial 04/21/19 07:00 04/21/19 16:59 Novolog Vial Sliding Scale - SQ Not Given TIDAC [facility] Protocol Levothyroxine Sodium 50 mcg 04/15/19 07:00 04/21/19 06:17 Synthroid - PO 50 mcg DAILY@0700 TERESITA Administration Metoclopramide HCl 10 mg 04/12/19 16:30 04/21/19 17:00 Reglan - PO Not Given TIDAC TERESITA Metoprolol Succinate 25 mg 04/11/19 10:00 04/21/19 10:06 Toprol Xl - PO 25 mg DAILY TERESITA Administration Non-Formulary Medication 4 each 04/21/19 07:00 04/21/19 06:18 Non-Formulary Med SQ 4 each AM TERESITA Administration Triamcinolone Acetonide 1 applic 04/14/19 22:00 04/20/19 23:16 Aristocort 0.1% Cream - TP Not Given BID [facility] Impression: Anemia - likely CKD , ETOH , chronic disease Elevated ferritin - ? ETOH , Cardiomyopathy - ? ischemic ( hx of DM) , ? ETOH, ? Fe++ overload CHF Cytology pending but left and right thoracentesis - transudate. For stress test
[2019-04-21] MEDS: TRIAMCINOLONE ACET 0.1% CREAM 15 GM TUBE TP SCH (21:27)
[2019-04-22] MEDS: METOCLOPRAMIDE HCL 10 MG TABLET (FP) PO SCH ×3 (06:16→17:21)
[2019-04-22] MEDS: LEVOTHYROXINE NA 50 MCG TABLET (FP) PO SCH ×2 (06:16→13:09)
[2019-04-22] MEDS: INSULIN SLIDING SCALE (NOVOLOG) 1 VIAL SQ SCH ×4 (06:18→22:27)
[2019-04-22] MEDS: NON-FORMULARY MED SQ SCH (06:19)
[2019-04-22] MEDS ORDERED: REGADENOSON 0.4 MG/5 ML PRE-FILLED SYRINGE IVPUSH ONE ×2 (09:30→10:23)
--- NOTE | 2019-04-22 11:42 | PN ---
Progress Note (short form) - Note Progress Note: s/p thoracentesis feeling better no distress Vital Signs - 24 hr 04/21/19 04/21/19 04/21/19 14:20 18:00 20:19 Temperature 98 F 98.6 F 98.4 F Pulse Rate 77 80 96 H Respiratory 20 20 20 Rate Blood Pressure 117/58 L 134/77 137/82 O2 Sat by Pulse 96 Oximetry (%) 04/22/19 04/22/19 04/22/19 02:00 05:52 09:00 Temperature 98.6 F 98.6 F Pulse Rate 79 76 Respiratory 18 18 18 Rate Blood Pressure 127/63 O2 Sat by Pulse 98 Oximetry (%) 04/22/19 10:00 Temperature 98.6 F Pulse Rate 97 H Respiratory 20 Rate Blood Pressure 144/85 O2 Sat by Pulse Oximetry (%) Current Medications Generic Name Dose Route Start Last Admin Trade Name Freq PRN Reason Stop Dose Admin Acetaminophen 650 mg 04/20/19 22:57 04/20/19 23:08 Tylenol - PO 650 mg Q6H PRN Administration Fever Or Pain Diphenhydramine HCl 25 mg 04/15/19 10:55 04/20/19 23:08 Benadryl - PO 25 mg DAILY PRN Administration FOR ITCHING Furosemide 40 mg 04/16/19 12:00 04/21/19 10:06 Lasix Injection - IVPUSH 40 mg DAILY [facility] Administration Insulin Aspart 1 vial 04/13/19 22:00 04/21/19 21:27 Novolog Vial Sliding Scale - SQ Not Given HS [facility] Protocol Insulin Aspart 1 vial 04/21/19 07:00 04/22/19 06:18 Novolog Vial Sliding Scale - SQ 5 units TIDAC [facility] Administration Protocol Levothyroxine Sodium 50 mcg 04/15/19 07:00 04/22/19 06:16 Synthroid - PO Not Given DAILY@0700 [facility] Metoclopramide HCl 10 mg 04/12/19 16:30 04/22/19 06:16 Reglan - PO Not Given TIDAC [facility] Metoprolol Succinate 25 mg 04/11/19 10:00 04/21/19 10:06 Toprol Xl - PO 25 mg DAILY TERESITA Administration Non-Formulary Medication 4 each 04/21/19 07:00 04/22/19 06:19 Non-Formulary Med SQ Not Given AM [facility] Triamcinolone Acetonide 1 applic 04/14/19 22:00 04/21/19 21:27 Aristocort 0.1% Cream - TP Not Given BID [facility] Laboratory Results - last 24 hr 04/19/19 04/20/19 04/21/19 14:45 10:15 16:52 POC Glucometer 123 Fluid Glucose 258 297 Fluid Total Protein 1.3 1.0 Fluid Albumin 0.6 0.5 Body Fluid LDH Source 48 50 Fluid Amylase 17 14 Fluid Triglycerides 28 19 04/21/19 04/22/19 21:22 05:23 POC Glucometer 226 366 Fluid Glucose Fluid Total Protein Fluid Albumin Body Fluid LDH Source Fluid Amylase Fluid Triglycerides Physical Exam awake/ comfortable S1 S2 regular Lungs crackles+decreased rt >left No pallor Abd-soft, non tender + edema decreased Neuro- a0 x3 PLAN iv lasix awaiting pleural fluid studies-- aviating cytology for stress test OOB PT eval Hematology eval noted did not qualify for O2 dc plan if stress test negative may change IV lasix to PO Problem List - Problems (1) Pleural mass Code(s): J94.9 - PLEURAL CONDITION, UNSPECIFIED (2) Elevated troponin Code(s): R74.8 - ABNORMAL LEVELS OF OTHER SERUM ENZYMES (3) Lightheadedness Code(s): R42 - DIZZINESS AND GIDDINESS (4) Near syncope Code(s): R55 - SYNCOPE AND COLLAPSE (5) Acute renal failure superimposed on chronic kidney disease Code(s): N17.9 - ACUTE KIDNEY FAILURE, UNSPECIFIED; N18.9 - CHRONIC KIDNEY DISEASE, UNSPECIFIED (6) Anemia Code(s): D64.9 - ANEMIA, UNSPECIFIED
[2019-04-22] MEDS: FUROSEMIDE 40 MG/4 ML INJECTABLE VIAL IVPUSH SCH (13:09)
[2019-04-22] MEDS: metoPROLOL SUCCINATE 25 MG TAB.SR.24H (FP) PO SCH (13:09)
[2019-04-22] MEDS: TRIAMCINOLONE ACET 0.1% CREAM 15 GM TUBE TP SCH ×2 (13:11→22:30)
[2019-04-22] MEDS ORDERED: INSULIN (NOVOLOG) ASPART 100 UNITS/ML 10ML VIAL ONE (17:50)
[2019-04-22] MEDS: diphenhydrAMINE HCL 25 MG CAPSULE (FP) PO PRN (22:24)
[2019-04-23] MEDS: LEVOTHYROXINE NA 50 MCG TABLET (FP) PO SCH (06:28)
[2019-04-23] MEDS: METOCLOPRAMIDE HCL 10 MG TABLET (FP) PO SCH ×2 (06:28→11:45)
[2019-04-23] MEDS ORDERED: INSULIN (NOVOLOG) ASPART 100 UNITS/ML 10ML VIAL ONE (06:35)
[2019-04-23] MEDS: NON-FORMULARY MED SQ SCH (07:07)
[2019-04-23] MEDS: INSULIN SLIDING SCALE (NOVOLOG) 1 VIAL SQ SCH ×2 (07:07→13:44)
[2019-04-23] MEDS: FUROSEMIDE 40 MG/4 ML INJECTABLE VIAL IVPUSH SCH (09:42)
[2019-04-23] MEDS: metoPROLOL SUCCINATE 25 MG TAB.SR.24H (FP) PO SCH (09:42)
[2019-04-23 11:40] VITALS: BP 144/79; PULSE 72; TEMP 97.8
--- NOTE | 2019-04-23 12:55 | PN ---
Progress Note (short form) - Note Progress Note: pt seen/ examined chart reviewed sitting in chair feels much better Vital Signs Temp 97.8 F 04/23/19 10:00 Pulse 72 04/23/19 10:00 Resp 18 04/23/19 10:00 BP 144/79 04/23/19 10:00 Pulse Ox 95 04/23/19 09:00 Intake & Output 04/22/19 04/23/19 04/23/19 23:59 11:59 23:59 Intake Total 620 120 Balance 620 120 Intake: Oral 620 120 Other: Voiding Method Incontinent Incontinent # Unmeasured Voids Void 1 2 Bowel Movement Yes # Bowel Movements 1 Active Medications Acetaminophen (Tylenol -) 650 mg PO Q6H PRN PRN Reason: Fever Or Pain Last Admin: 04/20/19 23:08 Dose: 650 mg Diphenhydramine HCl (Benadryl -) 25 mg PO DAILY PRN PRN Reason: FOR ITCHING Last Admin: 04/22/19 22:24 Dose: 25 mg Furosemide (Lasix Injection -) 40 mg IVPUSH DAILY [facility] Last Admin: 04/23/19 09:42 Dose: 40 mg Insulin Aspart (Novolog Vial Sliding Scale -) 1 vial SQ HS [facility]; Protocol Last Admin: 04/22/19 22:27 Dose: Not Given Insulin Aspart (Novolog Vial Sliding Scale -) 1 vial SQ TIDAC [facility]; Protocol Last Admin: 04/23/19 07:07 Dose: 3 units Levothyroxine Sodium (Synthroid -) 50 mcg PO DAILY@0700 [facility] Last Admin: 04/23/19 06:28 Dose: 50 mcg Metoclopramide HCl (Reglan -) 10 mg PO TIDAC [facility] Last Admin: 04/23/19 06:28 Dose: 10 mg Metoprolol Succinate (Toprol Xl -) 25 mg PO DAILY [facility] Last Admin: 04/23/19 09:42 Dose: 25 mg Non-Formulary Medication (Non-Formulary Med) 4 each SQ AM [facility] Last Admin: 04/23/19 07:07 Dose: 4 each Triamcinolone Acetonide (Aristocort 0.1% Cream -) 1 applic TP BID [facility] Last Admin: 04/22/19 22:30 Dose: Not Given CBC, BMP 04/21/19 05:15 04/21/19 05:15 Microbiology 04/20/19 10:15 Gram Stain - Final Pleural Fluid Body Fluid Culture - Final NO GROWTH OF AEROBIC ORGANISMS AFTER 48 HOURS INCUBATION Anaerobic Culture - Final NO ANAEROBES WERE ISOLATED 04/20/19 10:15 AFB Smear Concentration - Preliminary Pleural Fluid Mycobacterial Culture - Preliminary stress test -ve Problem List - Problems (1) Elevated troponin Code(s): R74.8 - ABNORMAL LEVELS OF OTHER SERUM ENZYMES (2) Lightheadedness Code(s): R42 - DIZZINESS AND GIDDINESS (3) Near syncope Code(s): R55 - SYNCOPE AND COLLAPSE (4) Anemia in chronic kidney disease Code(s): N18.9 - CHRONIC KIDNEY DISEASE, UNSPECIFIED; D63.1 - ANEMIA IN CHRONIC KIDNEY DISEASE
--- NOTE | 2019-04-23 13:04 | PN ---
Progress Note (short form) - Note Progress Note: Feels good Denies any comp;aints Blood sugar better No hypos Vital Signs Period Temp Pulse Resp BP Sys/Sibley Pulse Ox Last 24 Hr 97.8 F-98.9 F 72-98 18-20 130-145/65-82 95-96 Neck: Supple, No JVD HEENT: PERRL, EOMI Lungs: Improved air entry, few basal crackles CVS: S1S2 Abd: Benign Ext: No edema CMP Sodium 134 mmol/L (136-145) L 04/21/19 05:15 Potassium 4.3 mmol/L (3.5-5.1) 04/21/19 05:15 Chloride 101 mmol/L (98-107) 04/21/19 05:15 Carbon Dioxide 25 mmol/L (21-32) 04/21/19 05:15 Anion Gap 8 MMOL/L (8-16) 04/21/19 05:15 BUN 34.4 mg/dL (7-18) H 04/21/19 05:15 Creatinine 1.5 mg/dL (0.55-1.3) H 04/21/19 05:15 Est GFR (CKD-EPI)AfAm 45.62 04/21/19 05:15 Est GFR (CKD-EPI)NonAf 39.36 04/21/19 05:15 POC Glucometer 133 UNITS (80-120) 04/23/19 12:02 Random Glucose 145 mg/dL (74-106) H 04/21/19 05:15 Calcium 7.8 mg/dL (8.5-10.1) L 04/21/19 05:15 Phosphorus 4.6 mg/dL (2.5-4.9) 04/11/19 05:40 Magnesium 1.5 mg/dL (1.8-2.4) L 04/11/19 05:40 Total Bilirubin 0.4 mg/dL (0.2-1) 04/21/19 05:15 AST 22 U/L (15-37) 04/21/19 05:15 ALT 12 U/L (13-61) L 04/21/19 05:15 Alkaline Phosphatase 199 U/L (45-117) H 04/21/19 05:15 Creatine Kinase 62 U/L (26-192) 04/10/19 15:30 Troponin I 0.07 ng/ml (0.00-0.05) H 04/11/19 01:00 Total Protein 5.1 g/dl (6.4-8.2) L 04/21/19 05:15 Albumin 2.0 g/dl (3.4-5.0) L 04/21/19 05:15 Triglycerides 167 mg/dL (0-150) H 04/11/19 05:40 Cholesterol 165 mg/dL (50-200) 04/11/19 05:40 Total LDL Cholesterol 67 mg/dL (5-100) 04/11/19 05:40 HDL Cholesterol 85 mg/dL (40-60) H 04/11/19 05:40 TSH 6.76 uIU/ml (0.358-3.74) H 04/20/19 11:45 Free T4 1.34 ng/dl (0.76-1.46) 04/20/19 11:45 Current Medications Generic Name Dose Route Start Last Admin Trade Name Freq PRN Reason Stop Dose Admin Acetaminophen 650 mg 04/20/19 22:57 04/20/19 23:08 Tylenol - PO 650 mg Q6H PRN Administration Fever Or Pain Diphenhydramine HCl 25 mg 04/15/19 10:55 04/22/19 22:24 Benadryl - PO 25 mg DAILY PRN Administration FOR ITCHING Furosemide 40 mg 04/16/19 12:00 04/23/19 09:42 Lasix Injection - IVPUSH 40 mg DAILY [facility] Administration Insulin Aspart 1 vial 04/13/19 22:00 04/22/19 22:27 Novolog Vial Sliding Scale - SQ Not Given HS [facility] Protocol Insulin Aspart 1 vial 04/21/19 07:00 04/23/19 07:07 Novolog Vial Sliding Scale - SQ 3 units TIDAC [facility] Administration Protocol Levothyroxine Sodium 50 mcg 04/15/19 07:00 04/23/19 06:28 Synthroid - PO 50 mcg DAILY@0700 TERESITA Administration Metoclopramide HCl 10 mg 04/12/19 16:30 04/23/19 06:28 Reglan - PO 10 mg TIDAC [facility] Administration Metoprolol Succinate 25 mg 04/11/19 10:00 04/23/19 09:42 Toprol Xl - PO 25 mg DAILY TERESITA Administration Non-Formulary Medication 4 each 04/21/19 07:00 04/23/19 07:07 Non-Formulary Med SQ 4 each AM TERESITA Administration Triamcinolone Acetonide 1 applic 04/14/19 22:00 04/22/19 22:30 Aristocort 0.1% Cream - TP Not Given BID TERESITA AP: T1DM Hypothyroidism: TSH 6.76 now Cough H/O Breast Ca Tresiba 4 units daily Novolog Coverage Discussed option of doing Carb count and take Novolog accordingly. Pt wants to think about. Refuses to go for Insulin pump. Contnue LT4 50mcg Qd for now. Rpt TFT in 4 weeks and adjust dose as necessary. F/U in office in 2 weeks
--- NOTE | 2019-04-23 13:05 | DS ---
Physical Examination Vital Signs: Vital Signs Temperature 97.8 F 04/23/19 10:00 Pulse Rate 72 04/23/19 10:00 Respiratory Rate 18 04/23/19 10:00 Blood Pressure 144/79 04/23/19 10:00 O2 Sat by Pulse Oximetry (%) 95 04/23/19 09:00 Findings/Remarks: pt seen/examined. sitting in chair. chart reviewed. feels much better. wants to go home. Constitutional: Yes: No Distress, Calm Eyes: Yes: Conjunctiva Clear Neck: Yes: Supple Cardiovascular: Yes: Pulse Irregular Respiratory: Yes: Diminished Gastrointestinal: Yes: Soft Edema: LLE: 1+, RLE: 1+ Neurological: Yes: Alert Psychiatric: Yes: Alert Labs: CBC, BMP 04/21/19 05:15 04/21/19 05:15 Discharge Summary Reason For Visit: PRE-SYNCOPE/ELEVATED TROPONIN LEVEL Current Active Problems Breast cancer (Acute) Elevated troponin (Acute) FH: mastectomy (Acute) Lightheadedness (Acute) Near syncope (Acute) Pleural mass (Acute) Hospital Course: pt with extensive medical History -- admitted for sob treated with abx Large pleural effusion -- s/p Thoracocentesis -- Transdute. 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 Linares--per him, stable for d/c home with out pt follow up Pulmonary followed as well as Hematology and Endo Stable for d/c meds reconcilled -- send to pharmacy f/u with pmd in week and other specialists as directed Condition: Guarded - Instructions Disposition: VNS/HOME HEALTH CARE - Home Medications Comprehensive Discharge Medication List: Ambulatory Orders Metoprolol Succinate [Toprol XL -] 25 mg PO DAILY 07/19/14 Mauri/D3/Mag11/Zinc/Licensed Direct Entry Midwife/Atif/Bor [Caltrate 600+D Plus Tablet] 1 each PO DAILY Omeprazole 20 mg PO DAILY 03/19/19 Insulin Lispro [Humalog] 0 unit SQ AC 04/10/19 Acetaminophen [Tylenol .Regular Strength -] 650 mg PO Q6H PRN tablet 04/23/19 Furosemide [Lasix] 40 mg PO DAILY 30 Days #30 tablet 04/23/19 Levothyroxine [Synthroid -] 50 mcg PO DAILY@0700 tablet 04/23/19 Metoclopramide HCl [Reglan -] 10 mg PO TIDAC tablet 04/23/19 Triamcinolone 0.1% Cream [Aristocort 0.1% Cream -] 1 applic TP BID applic 04/23
[2019-04-23] MEDS: TRIAMCINOLONE ACET 0.1% CREAM 15 GM TUBE TP SCH (13:46)
--- NOTE | 2019-04-23 17:59 | PATH ---
Cytology Non-Gynecological Report Patient Name: CATHRYN KHAN [facility]. Rec. #: [id number] /Age/Gender: 1965 (Age: 53) / F Account: [id number] Location: 4 W TELEMETRY U Taken: 04/19/2019 Received: 04/21/2019 Reported: 04/23/2019 Physicians: Willy Alvarado M.D. Specimen(s) Received A: PLEURAL FLUID B: PLEURAL FLUID Clinical History Pleural effusion. History of breast cancer Final Diagnosis PLEURAL FLUID, THORACENTESIS: SATISFACTORY FOR EVALUATION NO MALIGNANT CELLS IDENTIFIED. MACROPHAGES AND REACTIVE MESOTHELIAL CELLS PRESENT. Comment: Immunohistochemical stain study shows the following results: CD68 highlights the clusters of macrophages, Calretenin and D2-40 stain the scattered reactive mesothelial cells in the background. Mammaglobin, GCDFP, and Eileen-3 are negative. The findings support a benign reactive change. Immunohistochemical stain CD68, Calretenin, D2-40, Eileen-3, Mammaglobin, and GCDFP were performed at [place], [place] ([id number]). Positive and negative controls (internal if applicable) show appropriate results. Also see concurrent cytology reports [id number] Electronically Signed Polo Washington M.D. Gross Description A. Approximately 50cc of yellow fluid received fixed in 50% alcohol. One slide and one cellblock prepared. B. Approximately 200cc of yellow fluid received fresh. One slide and one cellblock prepared.
--- NOTE | 2019-04-23 18:00 | PATH ---
Cytology Non-Gynecological Report Patient Name: CATHRYN KHAN Med. Rec. #: [id number] /Age/Gender: 1965 (Age: 53) / F Account: [id number] Location: [facility] TELEMETRY U Taken: 04/20/2019 Received: 04/21/2019 Reported: 04/23/2019 Physicians: Tanner Tian M.D. PHYSICIAN EMERGENCY DEPT Specimen(s) Received RIGHT PLEURAL FLUID Clinical History Pleural effusion Final Diagnosis PLEURAL FLUID, RIGHT, THORACENTESIS: SATISFACTORY FOR EVALUATION. NO MALIGNANT CELLS IDENTIFIED. REACTIVE MESOTHELIAL CELLS AND MACROPHAGES PRESENT. Also seen concurrent cytology reports [id number] for immunostain results. Electronically Signed Polo Washington M.D. Gross Description Approximately 50cc of yellow fluid received fixed in 50% alcohol. One slide And one cellblock prepared.
== END 2019-04-23 15:38 | disposition home health service (06) | DRG 187 ==
LOC: JER 13:36 → INTOOBSV 17:57 → JERBED 17:57 → J4W 23:50 → OBSVTOIN 04-12 12:24
PROVIDERS: ADMIT Internal Medicine; ATTEND Internal Medicine
PROC: 0W9B3ZX Drainage of Left Pleural Cavity, Percutaneous Approach, Diagnostic (ICD-10-PCS; principal; 2019-04-19)
PROC: 0W993ZX Drainage of Right Pleural Cavity, Percutaneous Approach, Diagnostic (ICD-10-PCS; 2019-04-20)
DX: J90 Pleural effusion, not elsewhere classified (principal); N17.9 Acute kidney failure, unspecified; I13.0 Hypertensive heart and chronic kidney disease with heart failure and stage 1 through stage 4 chronic kidney disease, or unspecified chronic kidney disease; I42.9 Cardiomyopathy, unspecified; R55 Syncope and collapse; R74.8 Abnormal levels of other serum enzymes; R42 Dizziness and giddiness; D63.1 Anemia in chronic kidney disease; I50.9 Heart failure, unspecified; K70.0 Alcoholic fatty liver; M34.9 Systemic sclerosis, unspecified; E03.9 Hypothyroidism, unspecified; Z85.3 Personal history of malignant neoplasm of breast; E78.5 Hyperlipidemia, unspecified; N18.3 Chronic kidney disease, stage 3 (moderate); E11.21 Type 2 diabetes mellitus with diabetic nephropathy
CPT/HCPCS: 32555; 36415; 71045-TC-FY; 71250-TC; 76098-TC-FY; 76942; 76998-TC; 78452-TC; 80048; 80053; 80061; 81003; 82042; 82150; 82465; 82550; 82945; 82962; 83615; 83721; 83735; 83986; 84100; 84157; 84439; 84443; 84478; 84484; 85025; 85027; 85610; 86850; 86900; 86901; 87070; 87075; 87086; 87102; 87116; 87186; 87205; 87206; 87210; 87899; 88108; 88305-TC; 93005; 93010; 93017; 93306-TC; 93880-TC; 94010; 94640; 94761; 97116-GP; 97161-GP; 99283-25; A9502; C1887; G0378; J2785

== ENCOUNTER 2019-05-30 19:20 | Inpatient (IN) | payer OTHER ==
--- NOTE | 2019-05-30 19:42 | PDOC ---
History of Present Illness <PateGeno - Last Filed: 05/30/19 21:35> - General History Source: Patient Exam Limitations: No Limitations - History of Present Illness Initial Comments: 53 y/o woman with a PMHx of HTN, HLD, IDDM, Anemia, CKD, CHF (30-35% EF), Nephrolithasis, UTIs, Scleroderma, Psoriasis, Breast Ca s/p Bilateral Mastectomy who presents to the emergency department with generalized weakness, syncope, and tachycardia. Per the patient, she had a fall on in her living room after fall on her slippers with questionable LOC. Per the patient, she states she has had generalized weakness since . When presented by EMS, her bpm was in the 140s. Allergies: Sulfa, terbinafine Shx: Appendectomy and bilateral masectomy Social: Denies tobacco and substance abuse. Uses alcohol socially. <Manny Duran - Last Filed: 06/04/19 19:53> - General Chief Complaint: Tachycardia Stated Complaint: BLOOD SUGAR PROBLEM Past History <RioGeno - Last Filed: 05/30/19 21:35> - Past Medical History Anemia: Yes Asthma: No Cancer: Yes (MAY 2010 LEFT BREAST CA) Cardiac Disorders: No CVA: No COPD: No DVT: No Dementia: No Diabetes: Yes (IDDM MANY YEARS) Dialysis: No GI Disorders: No Disorders: Yes (kidney stones, stent left) HTN: Yes (HX BORDERLINE, NO MEDS) Hypercholesterolemia: No Kidney Stones: No Liver Disease: Yes (fatty liver) Psychiatric Problems: No Seizures: No Thyroid Disease: Yes Lung CA: No - Surgical History Appendectomy: Yes - Immunization History Td Vaccination: No TDAP Vaccination: No Immunization Up to Date: Yes - Suicide/Smoking/Psychosocial Hx Smoking History: Unknown if ever smoked Have you smoked in the past 12 months: No Number of Cigarettes Smoked Daily: 0 Cigars Per Day: 0 Hx Alcohol Use: No Drug/Substance Use Hx: No Substance Use Type: None Hx Substance Use Treatment: No <Manny Duran - Last Filed: 06/04/19 19:53> - Past Medical History Allergies/Adverse Reactions: Allergies Allergy/AdvReac Type Severity Reaction Status Date / Time Sulfa (Sulfonamide Allergy Intermediate Hives Verified 03/19/19 10:19 Antibiotics) [Sulfa(Sulfonamide Antibiotics)] terbinafine HCl Allergy Intermediate Rash Verified 03/19/19 10:19 [From Lamisil] Home Medications: Ambulatory Orders Metoprolol Succinate [Toprol XL -] 25 mg PO DAILY 07/19/14 Mauri/D3/Mag11/Zinc/Business Systems Analyst/Atif/Bor [Caltrate 600+D Plus Tablet] 1 each PO DAILY Omeprazole 20 mg PO DAILY 03/19/19 Insulin Lispro [Humalog] 0 unit SQ AC 04/10/19 Acetaminophen [Tylenol .Regular Strength -] 650 mg PO Q6H PRN tablet 04/23/19 Furosemide [Lasix] 40 mg PO DAILY 30 Days #30 tablet 04/23/19 Levothyroxine [Synthroid -] 50 mcg PO DAILY@0700 tablet 04/23/19 Metoclopramide HCl [Reglan] 10 mg PO TID #90 tablet 04/23/19 Triamcinolone 0.1% Cream [Aristocort 0.1% Cream -] 1 applic TP BID applic 04/23 Insulin Degludec [Tresiba] 4 unit SQ DAILY 05/30/19 Review of Systems - Review of Systems Able to Perform ROS?: Yes Is the patient limited Romanian proficient: No Constitutional: Yes: Weakness. No: Chills, Diaphoresis, Fever HEENTM: No: Eye Pain, Ear Pain, Nose Pain, Throat Pain, Mouth Pain Respiratory: Yes: Shortness of Breath. No: Cough, Hemoptysis Cardiac (ROS): Yes: Syncope. No: Chest Pain, Lightheadedness, Palpitations, Chest Tightness ABD/GI: No: Constipated, Diarrhea, Nausea, Poor Fluid Intake, Rectal Bleeding, Vomiting, Tarry Stools : No: Burning, Dysuria, Incontinence, Pain Integumentary: Yes: Lesions (scleroderma blisters). No: Bruising Neurological: No: Headache, Numbness, Tingling, Tremors Psychiatric: Yes: Change in Appetite Endocrine: No: Unexplained Weight Loss Hematologic/Lymphatic: Yes: Anemia <ReneeManny - Last Filed: 06/04/19 19:53> *Physical Exam - Vital Signs Last Vital Signs Temp Pulse Resp BP Pulse Ox 99.9 F H 140 H 30 H 114/76 99 05/30/19 19:30 05/30/19 19:30 05/30/19 19:30 05/30/19 19:30 05/30/19 19:30 <Geno Pate - Last Filed: 05/30/19 21:35> - Vital Signs Last Vital Signs Temp Pulse Resp BP Pulse Ox 99.9 F H 140 H 30 H 114/76 99 05/30/19 19:30 05/30/19 19:30 05/30/19 19:30 05/30/19 19:30 05/30/19 19:30 - Physical Exam General Appearance: Yes: Nourished, Appropriately Dressed, Other (pale on appearance). No: Apparent Distress, Severe Distress, Intoxicated HEENT: positive: EOMI, FLOR, Normal Voice, Symmetrical, Pharynx Normal, Pale Conjunctivae, Hearing Grossly Normal. negative: Scleral Icterus (R), Scleral Icterus (L), Muffled/Hoarse voice, Pharyngeal Erythema, Tonsillar Exudate, Tonsillar Erythema, Nasal Congestion, Excessive drooling Neck: positive: Trachea midline, Supple. negative: Tender, Lymphadenopathy (R) , Lymphadenopathy (L), Tender lateral, Tender midline Respiratory/Chest: positive: Lungs Clear, Normal Breath Sounds. negative: Chest Tender, Respiratory Distress, Accessory Muscle Use, Rales, Rhonchi, Stridor, Wheezing, Dullness Cardiovascular: positive: Regular Rhythm, S1, S2, Tachycardia. negative: Systolic Murmur Gastrointestinal/Abdominal: positive: Normal Bowel Sounds, Flat, Soft. negative : Tender, Rebound, Tenderness Rectal Exam: positive: heme positive stool, hemorrhoids. negative: decreased tone Lymphatic: negative: Adenopathy Musculoskeletal: positive: Normal Inspection. negative: CVA Tenderness, Decreased Range of Motion Extremity: positive: Normal Capillary Refill, Normal Range of Motion. negative : Normal Inspection (blisters associated with blisters located bilateral LE. ), Tender Integumentary: positive: Normal Color, Dry, Warm Neurologic: positive: rn emergency room II-XII NML intact, Fully Oriented, Alert, Normal Mood/ Affect <Manny Duran - Last Filed: 06/04/19 19:53> ED Treatment Course - LABORATORY CBC & Chemistry Diagram: 05/30/19 19:55 05/30/19 19:55 - ADDITIONAL ORDERS Additional order review: Laboratory Results 05/30/19 05/30/19 05/30/19 19:55 19:55 19:55 PT with INR 12.10 INR 1.03 Sodium Potassium Chloride Carbon Dioxide Anion Gap BUN Creatinine Est GFR (CKD-EPI)AfAm Est GFR (CKD-EPI)NonAf Random Glucose Lactic Acid Calcium Total Bilirubin AST ALT Alkaline Phosphatase Creatine Kinase Creatine Kinase Index CK-MB (CK-2) Troponin I Total Protein Albumin TSH Free T4 Urine Color Yellow Urine Appearance Turbid Urine pH 5.0 Ur Specific [place] 1.021 Urine Protein 3+ H Urine Glucose (UA) Trace Urine Ketones 1+ H Urine Blood 2+ H Urine Nitrite Negative Urine Bilirubin Negative Urine Urobilinogen 1.0 Ur Leukocyte Esterase 3+ H Urine WBC (Auto) 908 Urine RBC (Auto) 109.1 Urine Casts (Auto) 100 U Epithel Cells (Auto) 23.2 Urine Bacteria (Auto) 1247.2 Stool Occult Blood Positive 05/30/19 05/30/19 05/30/19 19:55 19:55 19:55 PT with INR INR Sodium 127 L Potassium 5.3 H Chloride 95 L Carbon Dioxide 9 L Anion Gap 23 H BUN 43.2 H Creatinine 2.4 H Est GFR (CKD-EPI)AfAm 25.85 Est GFR (CKD-EPI)NonAf 22.30 Random Glucose 307 H* Lactic Acid 4.4 H* Calcium 8.2 L Total Bilirubin 0.8 AST 58 H ALT 17 Alkaline Phosphatase 238 H Creatine Kinase 188 Creatine Kinase Index 1.1 CK-MB (CK-2) 2.2 Troponin I 0.37 H Total Protein 5.7 L Albumin 2.2 L TSH 7.96 H Free T4 1.01 Urine Color Urine Appearance Urine pH Ur Specific [place] Urine Protein Urine Glucose (UA) Urine Ketones Urine Blood Urine Nitrite Urine Bilirubin Urine Urobilinogen Ur Leukocyte Esterase Urine WBC (Auto) Urine RBC (Auto) Urine Casts (Auto) U Epithel Cells (Auto) Urine Bacteria (Auto) Stool Occult Blood 05/30/19 19:55 RBC 2.58 L MCV 91.7 MCHC 32.4 RDW 15.2 MPV 6.6 L D Neutrophils % 81.6 D Lymphocytes % 5.0 L D Monocytes % 12.5 H Eosinophils % 0.1 D Basophils % 0.8 - Medications Given in the ED: ED Medications Discontinued Medications Generic Name Dose Route Start Last Admin Trade Name Freq PRN Reason Stop Dose Admin Acetaminophen 1,000 mg 07/28/19 19:49 05/30/19 20:15 Ofirmev Injection - IVPB 05/30/19 19:50 1,000 mg ONCE ONE Administration Levofloxacin 500 mg in 100 mls @ 100 mls/hr 05/30/19 19:49 05/30/19 20:15 Levaquin 500 Mg Premixed Ivpb - IVPB 05/30/19 20:48 100 mls/hr ONCE ONE Administration Protocol <Geno Pate - Last Filed: 05/30/19 21:35> - LABORATORY CBC & Chemistry Diagram: 06/04/19 07:45 06/04/19 07:45 <Manny Duran - Last Filed: 06/04/19 19:53> Medical Decision Making - Medical Decision Making 53 y/o woman with a PMHx of HTN, HLD, IDDM, Anemia, CKD, CHF (30-35% EF), Nephrolithasis, UTIs, Scleroderma, Psoriasis, Breast Ca s/p Bilateral Mastectomy who presents to the emergency department with generalized weakness, syncope, and tachycardia. Initial vitals: Initial Vital Signs Temp Pulse Resp BP Pulse Ox 99.9 F H 140 H 30 H 114/76 99 05/30/19 19:30 05/30/19 19:30 05/30/19 19:30 05/30/19 19:30 05/30/19 19:30 Work up Laboratory Tests 05/30/19 05/30/19 05/30/19 19:55 19:55 19:55 WBC 5.6 RBC 2.58 L Hgb 7.7 L Hct 23.6 L MCV 91.7 MCH 29.8 MCHC 32.4 RDW 15.2 Plt Count 113 L D MPV 6.6 L D Absolute Neuts (auto) 4.6 Total Counted 100 Neutrophils % 81.6 D Neutrophils % (Manual) 84.0 H Lymphocytes % 5.0 L D Lymphocytes % (Manual) 4.0 L Monocytes % 12.5 H Monocytes % (Manual) 12 H Eosinophils % 0.1 D Basophils % 0.8 Nucleated RBC % 0 Hypochromia 2+ Platelet Estimate Slt decrease Platelet Comment No clumping noted Anisocytosis 2+ Microcytosis 1+ Macrocytosis 1+ PT with INR INR Sodium 127 L Potassium 5.3 H Chloride 95 L Carbon Dioxide 9 L Anion Gap 23 H BUN 43.2 H Creatinine 2.4 H Est GFR (CKD-EPI)AfAm 25.85 Est GFR (CKD-EPI)NonAf 22.30 Random Glucose 307 H* Lactic Acid Calcium 8.2 L Total Bilirubin 0.8 AST 58 H ALT 17 Alkaline Phosphatase 238 H Creatine Kinase 188 Creatine Kinase Index 1.1 CK-MB (CK-2) 2.2 Troponin I 0.37 H Total Protein 5.7 L Albumin 2.2 L TSH 7.96 H Free T4 1.01 Urine Color Urine Appearance Urine pH Ur Specific [place] Urine Protein Urine Glucose (UA) Urine Ketones Urine Blood Urine Nitrite Urine Bilirubin Urine Urobilinogen Ur Leukocyte Esterase Urine WBC (Auto) Urine RBC (Auto) Urine Casts (Auto) U Epithel Cells (Auto) Urine Bacteria (Auto) Stool Occult Blood Acetone, Qual Negative L Blood Type Antibody Screen Crossmatch 05/30/19 05/30/19 05/30/19 19:55 19:55 19:55 WBC RBC Hgb Hct MCV MCH MCHC RDW Plt Count MPV Absolute Neuts (auto) Total Counted Neutrophils % Neutrophils % (Manual) Lymphocytes % Lymphocytes % (Manual) Monocytes % Monocytes % (Manual) Eosinophils % Basophils % Nucleated RBC % Hypochromia Platelet Estimate Platelet Comment Anisocytosis Microcytosis Macrocytosis PT with INR 12.10 INR 1.03 Sodium Potassium Chloride Carbon Dioxide Anion Gap BUN Creatinine Est GFR (CKD-EPI)AfAm Est GFR (CKD-EPI)NonAf Random Glucose Lactic Acid 4.4 H* Calcium Total Bilirubin AST ALT Alkaline Phosphatase Creatine Kinase Creatine Kinase Index CK-MB (CK-2) Troponin I Total Protein Albumin TSH Free T4 Urine Color Yellow Urine Appearance Turbid Urine pH 5.0 Ur Specific [place] 1.021 Urine Protein 3+ H Urine Glucose (UA) Trace Urine Ketones 1+ H Urine Blood 2+ H Urine Nitrite Negative Urine Bilirubin Negative Urine Urobilinogen 1.0 Ur Leukocyte Esterase 3+ H Urine WBC (Auto) 908 Urine RBC (Auto) 109.1 Urine Casts (Auto) 100 U Epithel Cells (Auto) 23.2 Urine Bacteria (Auto) 1247.2 Stool Occult Blood Acetone, Qual Blood Type Antibody Screen Crossmatch 05/30/19 05/30/19 19:55 21:27 WBC RBC Hgb Hct MCV MCH MCHC RDW Plt Count MPV Absolute Neuts (auto) Total Counted Neutrophils % Neutrophils % (Manual) Lymphocytes % Lymphocytes % (Manual) Monocytes % Monocytes % (Manual) Eosinophils % Basophils % Nucleated RBC % Hypochromia Platelet Estimate Platelet Comment Anisocytosis Microcytosis Macrocytosis PT with INR INR Sodium Potassium Chloride Carbon Dioxide Anion Gap BUN Creatinine Est GFR (CKD-EPI)AfAm Est GFR (CKD-EPI)NonAf Random Glucose Lactic Acid Calcium Total Bilirubin AST ALT Alkaline Phosphatase Creatine Kinase Creatine Kinase Index CK-MB (CK-2) Troponin I Total Protein Albumin TSH Free T4 Urine Color Urine Appearance Urine pH Ur Specific [place] Urine Protein Urine Glucose (UA) Urine Ketones Urine Blood Urine Nitrite Urine Bilirubin Urine Urobilinogen Ur Leukocyte Esterase Urine WBC (Auto) Urine RBC (Auto) Urine Casts (Auto) U Epithel Cells (Auto) Urine Bacteria (Auto) Stool Occult Blood Positive Acetone, Qual Blood Type B POSITIVE Antibody Screen Negative Crossmatch See Detail hemoglobin 7.7, lactic acid 4.4, glucose 307 (acetone negative), troponin 0.37, and positive UTI. CXR negative for consolidation. Creatinine elevated at 2.4 for GENESIS. Patient to be admitted for suspected sepsis 2/2 UTI with demand ischemia and GENESIS. Dispo: Admit <Manny Duran - Last Filed: 06/04/19 19:53> *DC/Admit/Observation/Transfer - Discharge Dispostion Decision to Admit order: Yes <Geno Pate - Last Filed: 05/30/19 21:35> <Manny Duran - Last Filed: 06/04/19 19:53> Diagnosis at time of Disposition: Hypothyroid, Hyponatremia, Uncontrolled diabetes mellitus, Fever in adult, Urinary tract infection, Anemia, Lightheadedness, Sepsis - Discharge Dispostion Condition at time of disposition: Critical
[2019-05-30] MEDS ORDERED: ACETAMINOPHEN 1000 MG/100 ML VIAL (NON FORMULARY) IVPB ONE (19:49)
[2019-05-30] MEDS ORDERED: ACETAMINOPHEN INJECTION 100 ML IVPB ONE (20:10)
[2019-05-30 20:19] LABS: BASO % 0.8 % (0-2.0); EOS % 0.1 % (0-4.5); HEMATOCRIT 23.6 % (32.4-45.2); HEMOGLOBIN 7.7 GM/dL (10.7-15.3); MCH 29.8 pg (25.7-33.7); MCHC 32.4 g/dl (32.0-36.0); MEAN CELL VOLUME 91.7 fl (80-96); MEAN PLT VOLUME 6.6 fl (7.5-11.1); MONO % 12.5 % (3.8-10.2); NEUT % 81.6 % (42.8-82.8); PLATELET COUNT 113 K/MM3 (134-434); RBC 2.58 M/mm3 (3.60-5.2); RDW 15.2 % (11.6-15.6); WHITE BLOOD COUNT 5.6 K/mm3 (4.0-10.0)
[2019-05-30 20:21] LABS: EPI CELLS 23.2 /HPF (0-5/HPF); HYALINE CASTS 100 /lpf (0-8); URINE APPEARANCE TURBID; URINE BILIRUBIN NEGATIVE (NEGATIVE); URINE COLOR YELLOW; URINE GLUCOSE (UA) TRACE (NEGATIVE); URINE KETONE 1+ (NEGATIVE); URINE LEUK ESTERASE 3+ (NEGATIVE); URINE NITRITE NEGATIVE (NEGATIVE); URINE PROTEIN 3+ (NEGATIVE); URINE WBC 908 /hpf (0-5)
[2019-05-30 20:25] LABS: INR 1.03 (0.83-1.09); PROTHROMBIN TIME (PATIENT) 12.1 SEC (9.7-13.0)
[2019-05-30 20:35] LABS: URINE BACTERIA 1247.2 /hpf (NEGATIVE); URINE RBC 109.1 /hpf (0-4)
[2019-05-30] MEDS ORDERED: PANTOPRAZOLE SODIUM 40 MG VIAL IVPUSH ONE (20:35)
[2019-05-30] MEDS ORDERED: PANTOPRAZOLE SODIUM 80 MG/200 ML BAG IVPB ONE (20:41)
[2019-05-30 20:45] LABS: ANISOCYTOSIS 2+; MACROCYTOSIS 1+; PLATELET ESTIMATE SLT DECREASE
[2019-05-30 21:17] LABS: ALBUMIN 2.2 g/dl (3.4-5.0); ALK PHOS 238 U/L (45-117); ANION GAP 23 MMOL/L (8-16); BILIRUBIN,TOTAL 0.8 mg/dL (0.2-1); BLOOD UREA NITROGEN 43.2 mg/dL (7-18); CALCIUM 8.2 mg/dL (8.5-10.1); CHLORIDE 95 mmol/L (98-107); CO2 9 mmol/L (21-32); CREATININE 2.4 mg/dL (0.55-1.3); POTASSIUM 5.3 mmol/L (3.5-5.1); SGOT/AST 58 U/L (15-37); SGPT/ALT 17 U/L (13-61); SODIUM 127 mmol/L (136-145); TOT PROT 5.7 g/dl (6.4-8.2)
[2019-05-30 21:26] LABS: GLUCOSE,RANDOM 307 mg/dL (74-106)
[2019-05-30] MEDS ORDERED: INSULIN REGULAR HUMAN 100 UNITS/ML *VIAL SQ ONE (21:31)
[2019-05-30] MEDS ORDERED: LEVOTHYROXINE NA 200 MCG TABLET PO ONE (21:31)
[2019-05-30 21:51] LABS: ACETONE SERUM NEGATIVE (NEGATIVE)
[2019-05-30] MEDS ORDERED: INSULIN REGULAR HUMAN 100 UNITS/ML *VIAL ONE (21:56)
[2019-05-30] MEDS ORDERED: SODIUM CHLORIDE 0.9% 500 ML INFUS.BAG IV ONE (22:01)
--- NOTE | 2019-05-30 22:23 | PDOC ---
Documentation entered by Manuel Hawkins SCRIBE, acting as scribe for Geno Pate MD. Geno Pate MD: This documentation has been prepared by the Ross santana Nirvannie, SCRIBE, under my direction and personally reviewed by me in its entirety. I confirm that the documentation accurately reflects all work, treatment, procedures, and medical decision making performed by me. Attending Attestation - Resident Resident Name: Manny Duran - ED Attending Attestation I have performed the following: I have examined & evaluated the patient, The case was reviewed & discussed with the resident, I agree w/resident's findings & plan - HPI HPI: 05/30/19 20:43 The patient is a 53 year old female, with a significant past medical history of Stage III CKD, IDDM, diabetic nephropathy, nephrolithiasis, HTN, HLD, Breast CA (s/p blt mastectomy), scleroderma, and psoriasis, who presents to the emergency department with, tachycardia. As per patient, she has been feeling off for the past 4 days since her recent fall (? hit head and did not seek medical attention). Today she notes her called EMS because she did not seem right. As per EMS, patient was tachycardic to the 140s en route. She denies recent chest pain or shortness of breath. Allergies: Sulfa, terbinafine Primary Care Physician: Dr. Seymour - Physicial Exam PE: 05/30/19 21:44 GENERAL: +Pale. +Febrile. +Tachypneic.Awake, alert, and fully oriented. HEAD: No signs of trauma NECK: Normal ROM, supple, no lymphadenopathy, JVD, or masses LUNGS: Breath sounds equal, clear to auscultation bilaterally. No wheezes, and no crackles HEART: +Tachycardia. ABDOMEN: +Diffuse abdominal tenderness. +Suprapubic tenderness. Soft. No guarding, no rebound. No masses BACK: +Low back pain secondary to fall 4 days ago. EXTREMITIES: + 1+ pitting edema blt. Normal range of motion. No clubbing or cyanosis. No cords, erythema, or tenderness NEUROLOGICAL: Cranial nerves II through XII grossly intact. Normal speech SKIN: +Discoid psoriasis and scleroderma related blistering to the blt lower legs. - Medical Decision Making 05/30/19 21:24 Pt comes with tachycardia and pallor. SHe has black stools on exam - guaiac positive. Pt 05/31/19 01:25 Pt has anemia and will require blood transfusion; she has UTI and sepsis and tahcycardia and dehydration, as she has not been eating x 2 days. Pt is imporved in the ER. HR fell from 145-115bpm. Blood pressure has come up a bit. Blood sugar improved. IV abx given, ofirmev, hydration, etc. Pt admitted to the hospitalists
[2019-05-30] MEDS ORDERED: CEFEPIME HCL/D5W 2 GM/50 ML BAG IVPB ONE (22:30)
[2019-05-30 22:47] LABS: ARTERIAL BLD GAS O2 SATURATION 99.9 % (95-98); ARTERIAL BLOOD GAS BASE EXCESS -15.3 meq/l (-2-2); ARTERIAL BLOOD GAS PCO2 18.3 mmHg (35-45); ARTERIAL BLOOD GAS PO2 180 mmHg (80-105); ARTERIAL BLOOD GAS pH 7.34 (7.35-7.45); CARBOXYHEMOGLOBIN 1.4 % (0-2)
[2019-05-30 22:51] LABS: ALLENS TEST POSITIVE
[2019-05-30] MEDS ORDERED: CEFEPIME 2 GM/100 ML BAG IVPB ONE (22:53)
[2019-05-30] MEDS ORDERED: LIDOCAINE 5% TOPICAL PATCH ONE (23:08)
--- NOTE | 2019-05-31 00:14 | HP ---
CHIEF COMPLAINT: post fall , poor po intake PCP: Dr. Oswald HISTORY OF PRESENT ILLNESS: 53 year old female with PMHx of CKD stage 3, nephropathies , IDDM, diabetic nephropathy, HLD, HLD, CHF Breast Ca ( s/p b/l mastectomy) , scleroderma, and psoriasis arrived to ED due to weakness " no feeling like herself" post fall ?head injury, as per patient her called EMS and brought to ER for further evaluation. As per EMS patient was tachy ( 140s en route). Patient denies sob/cp, N/V, dizziness. ER course was notable for: (1) + occult blood, + UA (2) PRBC x1, given PPI, given cefepime and levo x1 (3) pending CT head Recent Travel: NO PAST MEDICAL HISTORY: CKD stage 3, nephropathies , IDDM, diabetic nephropathy, HLD, HLD, CHF Breast Ca , scleroderma, and psoriasis PAST SURGICAL HISTORY: b/l mastectomy; appendectomy Social History: Smoking:No Alcohol: occasional Drugs: no Family History: Father : internal bleeding; [place] ( 6x bypass), Mother: Breast ca, stroke - both Allergies: Sulfa (Sulfonamide Antibiotics) [Sulfa(Sulfonamide Antibiotics)] Allergy (Intermediate, Verified 03/19/19 10:19) Hives SWELLING terbinafine HCl [From Lamisil] Allergy (Intermediate, Verified 03/19/19 10:19) Rash HOME MEDICATIONS: Home Medications Medication Instructions Recorded Metoprolol Succinate [Toprol XL -] 25 mg PO DAILY 07/19/14 Mauri/D3/Mag11/Zinc/Cementing Bulk Material Operator/Atif/Bor 1 each PO DAILY 03/19/19 [Caltrate 600+D Plus Tablet] Omeprazole 20 mg PO DAILY 03/19/19 Insulin Lispro [Humalog] 0 unit SQ AC 04/10/19 Acetaminophen [Tylenol .Regular 650 mg PO Q6H PRN tablet 04/23/19 Strength -] Furosemide [Lasix] 40 mg PO DAILY 30 Days #30 tablet 04/23/19 Insulin (Novolog) [Novolog -] 0 units SQ AC #1 vial 04/23/19 Levothyroxine [Synthroid -] 50 mcg PO DAILY@0700 tablet 04/23/19 Metoclopramide HCl [Reglan -] 10 mg PO TIDAC tablet 04/23/19 Metoclopramide HCl [Reglan] 10 mg PO TID #90 tablet 04/23/19 Triamcinolone 0.1% Cream 1 applic TP BID applic 04/23/19 [Aristocort 0.1% Cream -] REVIEW OF SYSTEMS CONSTITUTIONAL: + generalized weakness, loss of appetite HEENT: Absent: rhinorrhea, nasal congestion, throat pain, throat swelling, difficulty swallowing, mouth swelling, ear pain, eye pain, visual changes CARDIOVASCULAR: Absent: chest pain, syncope, palpitations, irregular heart rate , lightheadedness, peripheral edema RESPIRATORY: Absent: cough, shortness of breath, dyspnea with exertion, orthopnea, wheezing, stridor, hemoptysis GASTROINTESTINAL:Absent: abdominal pain, abdominal distension, nausea, vomiting , diarrhea, constipation, melena, hematochezia GENITOURINARY: Absent: dysuria, frequency, urgency, hesitancy, hematuria, flank pain, genital pain MUSCULOSKELETAL: Absent: myalgia, arthralgia, joint swelling, back pain, neck pain SKIN: + discoid psoriasis and scleroderma NEUROLOGIC: Absent: headache, focal weakness or paresthesias, dizziness, unsteady gait, seizure, mental status changes, bladder or bowel incontinence PSYCHIATRIC: Absent: anxiety, depression, suicidal or homicidal ideation, hallucinations. PHYSICAL EXAMINATION Vital Signs - 24 hr 05/30/19 19:30 Temperature 99.9 F H Pulse Rate 140 H Respiratory 30 H Rate Blood Pressure 114/76 O2 Sat by Pulse 99 Oximetry (%) GENERAL: Awake, alert, noted pale HEENT: NC/AT, EOMI, PERRLA, No JVD LUNGS: Breath sounds equal, clear to auscultation bilaterally. No wheezes, and no crackles. No accessory muscle use. HEART: normal S1 and S2 without murmur, rub or gallop. + tachy ABDOMEN: Soft, normoactive bowel sounds, + tender at suprapubic MUSCULOSKELETAL: Normal range of motion at all joints. No bony deformities or tenderness. Extremity: +1 edema b/l; scleroderma (due to fluids filled blister b/l LE ) NEUROLOGICAL: Cranial nerves II-XII intact. Normal speech. Normal gait. PSYCHIATRIC: Cooperative. Good eye contact. Appropriate mood and affect. SKIN: warm, dry Laboratory Results - last 24 hr 05/30/19 05/30/1919 19:55 19:55 19:55 WBC 5.6 RBC 2.58 L Hgb 7.7 L Hct 23.6 L MCV 91.7 MCH 29.8 MCHC 32.4 RDW 15.2 Plt Count 113 L D MPV 6.6 L D Absolute Neuts (auto) 4.6 Total Counted 100 Neutrophils % 81.6 D Neutrophils % (Manual) 84.0 H Lymphocytes % 5.0 L D Lymphocytes % (Manual) 4.0 L Monocytes % 12.5 H Monocytes % (Manual) 12 H Eosinophils % 0.1 D Basophils % 0.8 Nucleated RBC % 0 Hypochromia 2+ Platelet Estimate Slt decrease Platelet Comment No clumping noted Anisocytosis 2+ Microcytosis 1+ Macrocytosis 1+ PT with INR INR Anticoagulation Therapy Puncture Site ABG pH ABG pCO2 at Pt Temp ABG pO2 at Pt Temp ABG HCO3 ABG O2 Sat (Measured) ABG O2 Content ABG Base Excess David Test Carboxyhemoglobin Methemoglobin O2 Delivery Device Oxygen Flow Rate Vent Mode Vent Rate Mechanical Rate Pressure Support Vent Sodium 127 L Potassium 5.3 H Chloride 95 L Carbon Dioxide 9 L Anion Gap 23 H BUN 43.2 H Creatinine 2.4 H Est GFR (CKD-EPI)AfAm 25.85 Est GFR (CKD-EPI)NonAf 22.30 POC Glucometer Random Glucose 307 H* Lactic Acid Calcium 8.2 L Total Bilirubin 0.8 AST 58 H ALT 17 Alkaline Phosphatase 238 H Creatine Kinase 188 Creatine Kinase Index 1.1 CK-MB (CK-2) 2.2 Troponin I 0.37 H Total Protein 5.7 L Albumin 2.2 L TSH 7.96 H Free T4 1.01 Urine Color Urine Appearance Urine pH Ur Specific [place] Urine Protein Urine Glucose (UA) Urine Ketones Urine Blood Urine Nitrite Urine Bilirubin Urine Urobilinogen Ur Leukocyte Esterase Urine WBC (Auto) Urine RBC (Auto) Urine Casts (Auto) U Epithel Cells (Auto) Urine Bacteria (Auto) Stool Occult Blood Acetone, Qual Negative L Blood Type Antibody Screen Crossmatch 05/30/19 05/30/19 05/30/19 19:55 19:55 19:55 WBC RBC Hgb Hct MCV MCH MCHC RDW Plt Count MPV Absolute Neuts (auto) Total Counted Neutrophils % Neutrophils % (Manual) Lymphocytes % Lymphocytes % (Manual) Monocytes % Monocytes % (Manual) Eosinophils % Basophils % Nucleated RBC % Hypochromia Platelet Estimate Platelet Comment Anisocytosis Microcytosis Macrocytosis PT with INR 12.10 INR 1.03 Anticoagulation Therapy Puncture Site ABG pH ABG pCO2 at Pt Temp ABG pO2 at Pt Temp ABG HCO3 ABG O2 Sat (Measured) ABG O2 Content ABG Base Excess David Test Carboxyhemoglobin Methemoglobin O2 Delivery Device Oxygen Flow Rate Vent Mode Vent Rate Mechanical Rate Pressure Support Vent Sodium Potassium Chloride Carbon Dioxide Anion Gap BUN Creatinine Est GFR (CKD-EPI)AfAm Est GFR (CKD-EPI)NonAf POC Glucometer Random Glucose Lactic Acid 4.4 H* Calcium Total Bilirubin AST ALT Alkaline Phosphatase Creatine Kinase Creatine Kinase Index CK-MB (CK-2) Troponin I Total Protein Albumin TSH Free T4 Urine Color Yellow Urine Appearance Turbid Urine pH 5.0 Ur Specific [place] 1.021 Urine Protein 3+ H Urine Glucose (UA) Trace Urine Ketones 1+ H Urine Blood 2+ H Urine Nitrite Negative Urine Bilirubin Negative Urine Urobilinogen 1.0 Ur Leukocyte Esterase 3+ H Urine WBC (Auto) 908 Urine RBC (Auto) 109.1 Urine Casts (Auto) 100 U Epithel Cells (Auto) 23.2 Urine Bacteria (Auto) 1247.2 Stool Occult Blood Acetone, Qual Blood Type Antibody Screen Crossmatch 05/30/19 05/30/19 05/30/19 19:55 21:27 22:07 WBC RBC Hgb Hct MCV MCH MCHC RDW Plt Count MPV Absolute Neuts (auto) Total Counted Neutrophils % Neutrophils % (Manual) Lymphocytes % Lymphocytes % (Manual) Monocytes % Monocytes % (Manual) Eosinophils % Basophils % Nucleated RBC % Hypochromia Platelet Estimate Platelet Comment Anisocytosis Microcytosis Macrocytosis PT with INR INR Anticoagulation Therapy Puncture Site ABG pH ABG pCO2 at Pt Temp ABG pO2 at Pt Temp ABG HCO3 ABG O2 Sat (Measured) ABG O2 Content ABG Base Excess David Test Carboxyhemoglobin Methemoglobin O2 Delivery Device Oxygen Flow Rate Vent Mode Vent Rate Mechanical Rate Pressure Support Vent Sodium Potassium Chloride Carbon Dioxide Anion Gap BUN Creatinine Est GFR (CKD-EPI)AfAm Est GFR (CKD-EPI)NonAf POC Glucometer 283 Random Glucose Lactic Acid Calcium Total Bilirubin AST ALT Alkaline Phosphatase Creatine Kinase Creatine Kinase Index CK-MB (CK-2) Troponin I Total Protein Albumin TSH Free T4 Urine Color Urine Appearance Urine pH Ur Specific [place] Urine Protein Urine Glucose (UA) Urine Ketones Urine Blood Urine Nitrite Urine Bilirubin Urine Urobilinogen Ur Leukocyte Esterase Urine WBC (Auto) Urine RBC (Auto) Urine Casts (Auto) U Epithel Cells (Auto) Urine Bacteria (Auto) Stool Occult Blood Positive Acetone, Qual Blood Type B POSITIVE Antibody Screen Negative Crossmatch See Detail 05/30/19 05/30/19 22:15 22:27 WBC RBC Hgb Hct MCV MCH MCHC RDW Plt Count MPV Absolute Neuts (auto) Total Counted Neutrophils % Neutrophils % (Manual) Lymphocytes % Lymphocytes % (Manual) Monocytes % Monocytes % (Manual) Eosinophils % Basophils % Nucleated RBC % Hypochromia Platelet Estimate Platelet Comment Anisocytosis Microcytosis Macrocytosis PT with INR INR Anticoagulation Therapy No Result Required. Puncture Site No Result Required. ABG pH 7.34 L ABG pCO2 at Pt Temp 18.3 L ABG pO2 at Pt Temp 180 H ABG HCO3 9.5 L ABG O2 Sat (Measured) 99.9 H ABG O2 Content 8.9 L* ABG Base Excess -15.3 L David Test Positive Carboxyhemoglobin 1.4 Methemoglobin 0.0 O2 Delivery Device No Result Required. Oxygen Flow Rate No Result Required. Vent Mode No Result Required. Vent Rate No Result Required. Mechanical Rate No Result Required. Pressure Support Vent No Result Required. Sodium Potassium Chloride Carbon Dioxide Anion Gap BUN Creatinine Est GFR (CKD-EPI)AfAm Est GFR (CKD-EPI)NonAf POC Glucometer Random Glucose Lactic Acid 1.3 Calcium Total Bilirubin AST ALT Alkaline Phosphatase Creatine Kinase Creatine Kinase Index CK-MB (CK-2) Troponin I Total Protein Albumin TSH Free T4 Urine Color Urine Appearance Urine pH Ur Specific [place] Urine Protein Urine Glucose (UA) Urine Ketones Urine Blood Urine Nitrite Urine Bilirubin Urine Urobilinogen Ur Leukocyte Esterase Urine WBC (Auto) Urine RBC (Auto) Urine Casts (Auto) U Epithel Cells (Auto) Urine Bacteria (Auto) Stool Occult Blood Acetone, Qual Blood Type Antibody Screen Crossmatch ASSESSMENT/PLAN: 53 year old female with PMHx of CKD stage 3, nephropathies , IDDM, diabetic nephropathy, HLD, HLD, CHF Breast Ca ( s/p b/l mastectomy) , scleroderma, and psoriasis arrived to ED due to weakness " no feeling like herself" post fall ?head injury, as per patient her called EMS and brought to ER for further evaluation. As per EMS patient was tachy ( 140s en route). Sepsis secondary to UTI post fall ? GI bleed Hyponatremia GENESIS IN ED - stool occult positive - blood tranfusion 1 unit PRBC - PPI 80 mg IV push x1 - Cefepime and levo given x1 - lactic acid 4. 4 --> 1.3 - wbc: 5.6 - continue with Rocephin - follow Urine , blood culture - continue with tylenol - follow up ID - NPO - IV fluids - continue with PPI - monitor H/H trend - monitor lytes - follow up GI Hypothyrodism TSH: 7.9 - given synthroid 200mcg x1 DM - monitor FSBS - continue with sliding scale coverage - follow up HgA1c HTN/HLD - monitor HR/BP - Continue with metoprolol 25 mg IV push Problem List - Problem (1) Sepsis Code(s): A41.9 - SEPSIS, UNSPECIFIED ORGANISM (2) Urinary tract infection Code(s): N39.0 - URINARY TRACT INFECTION, SITE NOT SPECIFIED Qualifiers: (3) Occult GI bleeding Code(s): R19.5 - OTHER FECAL ABNORMALITIES (4) Anemia Code(s): D64.9 - ANEMIA, UNSPECIFIED Qualifiers: (5) Hypothyroid Code(s): E03.9 - HYPOTHYROIDISM, UNSPECIFIED (6) Hyponatremia Code(s): E87.1 - HYPO-OSMOLALITY AND HYPONATREMIA (7) Hyperlipemia Code(s): E78.5 - HYPERLIPIDEMIA, UNSPECIFIED (8) History of fall Code(s): Z91.81 - HISTORY OF FALLING (9) Uncontrolled diabetes mellitus Code(s): E11.65 - TYPE 2 DIABETES MELLITUS WITH HYPERGLYCEMIA (10) Acute renal failure Code(s): N17.9 - ACUTE KIDNEY FAILURE, UNSPECIFIED (11) Diabetes Code(s): E11.9 - TYPE 2 DIABETES MELLITUS WITHOUT COMPLICATIONS (12) Hypertension Code(s): I10 - ESSENTIAL (PRIMARY) HYPERTENSION (13) Scleroderma Code(s): M34.9 - SYSTEMIC SCLEROSIS, UNSPECIFIED Visit type - Emergency Visit Emergency Visit: Yes ED Registration Date: 05/30/19 Care time: The patient presented to the Emergency Department on the above date and was hospitalized for further evaluation of their emergent condition. - New Patient This patient is new to me today: Yes Date on this admission: 05/31/19 - Critical Care Critical Care patient: Yes Total Critical Care Time (in minutes): 30 Critical Care Statement: The care of this patient involved high complexity decision making to prevent further life threatening deterioration of the patient 's condition and/or to evaluate & treat vital organ system(s) failure or risk of failure.
[2019-05-31] MEDS: SODIUM CHLORIDE 1,000 ML IV SCH (03:27)
[2019-05-31] MEDS: ACETAMINOPHEN 325 MG TABLET (FP) PO PRN ×2 (03:28→10:51)
[2019-05-31] MEDS: INSULIN SLIDING SCALE (NOVOLOG) 1 VIAL SQ SCH ×3 (06:15→19:19)
[2019-05-31] MEDS ORDERED: MUPIROCIN 2% TOPICAL OINTMENT FOR DECOLONIZATION NS SCH (10:00)
--- NOTE | 2019-05-31 10:09 | EKG ---
Test Reason : Blood Pressure : / mmHG Vent. Rate : 138 BPM Atrial Rate : 090 BPM P-R Int : 000 ms QRS Dur : 084 ms QT Int : 372 ms P-R-T Axes : 000 041 070 degrees QTc Int : 563 ms UNDETERMINED RHYTHM LOW VOLTAGE QRS POSSIBLE INFERIOR INFARCT , AGE UNDETERMINED CANNOT RULE OUT ANTERIOR INFARCT , AGE UNDETERMINED ABNORMAL ECG WHEN COMPARED WITH ECG OF 10-APR-2019 19:42, VENT. RATE HAS INCREASED PROBABLE RHYTHM CHANGE CANNOT RULE OUT SVT Confirmed by MARGARETH TORRES MD ([id number]) on 05/31/2019 10:08:46 AM Referred By: Confirmed By:MARGARETH TORRES MD
[2019-05-31] MEDS ORDERED: DEXTROSE 5%-WATER - 50 ML IVPB ONE (10:20)
[2019-05-31] MEDS ORDERED: cefTRIAXone SODIUM 1 GM VIAL ONE (10:20)
[2019-05-31] MEDS: CEFTRIAXONE 1 GM in DEXTROSE 5%-WATER - 50 ML IVPB SCH (10:45)
[2019-05-31] MEDS: PANTOPRAZOLE SODIUM 40 MG VIAL IVPUSH SCH ×2 (10:46→22:48)
--- NOTE | 2019-05-31 11:32 | PN ---
Progress Note (short form) - Note Progress Note: ID CONSULT DICTATED RECURRENT UTI R/O SEPSIS SECONDARY TO UTI LACTIC ACIDOSIS THROMBOCYTOPENIA AZOTEMIA AWAIT C/S CONTINUE EMPIRIC CEFTRIAXONE
--- NOTE | 2019-05-31 12:25 | PN ---
Progress Note, Physician History of Present Illness: pt seen/ examined chart reviewed feels better but weak no specific complains all f/u noted - Current Medication List Current Medications: Active Medications Acetaminophen (Tylenol -) 650 mg PO Q6H PRN PRN Reason: PAIN Last Admin: 05/31/19 10:51 Dose: 650 mg Chlorhexidine Gluconate (Hibiclens For Decolonization -) 1 applic TP HS TERESITA Sodium Chloride (Normal Saline -) 1,000 mls @ 75 mls/hr IV ASDIR TERESITA Last Admin: 05/31/19 03:27 Dose: 75 mls/hr Ceftriaxone Sodium 1 gm/ (Dextrose) 50 mls @ 100 mls/hr IVPB DAILY [facility]; Protocol Last Admin: 05/31/19 10:45 Dose: 100 mls/hr Insulin Aspart (Novolog Vial Sliding Scale -) 1 vial SQ TIDAC [facility]; Protocol Last Admin: 05/31/19 06:15 Dose: 8 units Mupirocin (Bactroban Ointment (For Decolonization) -) 1 applic NS BID TERESITA Stop: 06/05/19 09:59 Pantoprazole Sodium (Protonix Iv) 40 mg IVPUSH BID TERESITA Last Admin: 05/31/19 10:46 Dose: 40 mg - Objective Vital Signs: Vital Signs Temperature 97.8 F 05/31/19 07:26 Pulse Rate 104 H 05/31/19 08:28 Respiratory Rate 18 05/31/19 08:29 Blood Pressure 122/80 05/31/19 08:28 O2 Sat by Pulse Oximetry (%) 98 05/31/19 08:29 Constitutional: Yes: No Distress, Calm, Obese Eyes: Yes: Conjunctiva Clear, Other (pale) Neck: Yes: Supple Cardiovascular: Yes: Regular Rate and Rhythm Respiratory: Yes: Diminished Gastrointestinal: Yes: Soft Edema: LLE: 1+, RLE: 1+ Psychiatric: Yes: Alert Labs: CBC, BMP 05/30/19 19:55 05/30/19 19:55 INR, PTT INR 1.03 (0.83-1.09) 05/30/19 19:55 - ....Imaging Chest X-ray: Report Reviewed Cat Scan: Report Reviewed Problem List - Problems (1) Anemia Code(s): D64.9 - ANEMIA, UNSPECIFIED Qualifiers: (2) Fever in adult Code(s): R50.9 - FEVER, UNSPECIFIED (3) History of fall Code(s): Z91.81 - HISTORY OF FALLING (4) Hyperlipemia Code(s): E78.5 - HYPERLIPIDEMIA, UNSPECIFIED (5) Uncontrolled diabetes mellitus Code(s): E11.65 - TYPE 2 DIABETES MELLITUS WITH HYPERGLYCEMIA (6) Urinary tract infection Code(s): N39.0 - URINARY TRACT INFECTION, SITE NOT SPECIFIED Qualifiers: (7) Acute renal failure superimposed on chronic kidney disease Code(s): N17.9 - ACUTE KIDNEY FAILURE, UNSPECIFIED; N18.9 - CHRONIC KIDNEY DISEASE, UNSPECIFIED Assessment/Plan ASSESSMENT/PLAN: 53 year old female with PMHx of CKD stage 3, nephropathies , IDDM, diabetic nephropathy, HLD, HLD, CHF Breast Ca ( s/p b/l mastectomy) , scleroderma, and psoriasis arrived to ED due to weakness " no feeling like herself" post fall ?head injury, as per patient her called EMS and brought to ER for further evaluation. As per EMS patient was tachy ( 140s en route). Sepsis secondary to UTI post fall ? GI bleed Hyponatremia GENESIS IN ED - stool occult positive - blood tranfusion 1 unit PRBC - PPI 80 mg IV push x1 - Cefepime and levo given x1 - lactic acid 4. 4 --> 1.3 - wbc: 5.6 - continue with Rocephin - follow Urine , blood culture - continue with tylenol - follow up ID -- IV fluids - continue with PPI - monitor H/H trend - monitor lytes - follow up GI Hypothyrodism TSH: 7.9 - given synthroid 200mcg x1 DM - monitor FSBS - continue with sliding scale coverage - follow up HgA1c HTN/HLD - monitor HR/BP - Continue with metoprolol 25 mg IV push
--- NOTE | 2019-05-31 12:37 | CONS ---
DATE OF CONSULTATION: DATE OF DICTATION: 05/31/2019 HISTORY: The patient is a 53-year-old female who was evaluated for urinary tract infection. The patient was admitted to the hospital on May 30, 2019, after a fall and possible syncopal episode at home. Patient states that she felt very weak and unsteady. She fell at home sustaining trauma to her head. She states that her blood sugar when she checked it was 156. She was transferred to the emergency room where a CAT scan of the head was performed, and it was negative for acute infarct or bleed. She was noted to have pyuria and a lactic acid. She was empirically treated with cefepime and Levaquin. The patient has a history of multiple medical problems including diabetes mellitus, scleroderma, psoriasis, and recurrent urinary tract infections. She is not on immunosuppressive therapy for her scleroderma and psoriasis. Her course has been further complicated by anemia and guaiac-positive stools. She is receiving a transfusion of packed red cells and is to be evaluated by GI. Patient gives a history of urinary frequency and incontinence. She is, however, on Lasix and attributes her urinary frequency to the diuretic. She denies any dysuria or hematuria. She has had a history of recurrent urinary tract infections. She was hospitalized in 2015 with E. coli urosepsis. She denies any recent febrile illness or shaking chills. She complains of left hip pain status post fall. PAST MEDICAL HISTORY: Positive for diabetes mellitus, chronic kidney disease, hyperlipidemia, congestive heart failure, breast cancer status post bilateral mastectomies, history of nonhealing left mastectomy wound, scleroderma, psoriasis, nephrolithiasis, recurrent urinary tract infections. PAST SURGICAL HISTORY: Status post bilateral mastectomies, appendectomy. ALLERGIES: SULFA. SOCIAL HISTORY: Live at home with her significant other. Nonsmoker, nondrinker. SYSTEMS REVIEW: Neurologic: As per HPI. Cardiac: Negative chest pain or palpitations. Respiratory: Status post recent thoracentesis for transudative effusions. Gastrointestinal: Negative vomiting or diarrhea. Genitourinary: As per HPI. LABORATORY DATA: White count 5.6, hematocrit 23.6, platelets 113, BUN 43, creatinine 2.4. Lactic acid 4.4. Chest x-ray: Left pleural effusion. PHYSICAL EXAMINATION: General: She is awake and alert. Chronically ill-appearing in no acute distress. Vital Signs: Temperature 97.8, maximum temperature 99.9, blood pressure 122/80, pulse 104 regular, respirations 18 per minute. HEENT: Sclerae anicteric. Neck: Supple. Heart: Sounds S1, S2. Tachycardic. Lungs: Clear. Diminished breath sounds at the bases. Abdomen: Soft. No tenderness elicited. No mass, rebound, or rigidity. Extremities: Edema 1+. Skin: Bilateral psoriatic lesions of the distal lower extremities bilaterally. No open areas of drainage is noted. Examination of the left chest, there is a healed mastectomy wound with some erythema. The wound does not appear to be acutely infected. No purulent drainage. IMPRESSION: 1. Recurrent urinary tract infection. 2. Lactic acidosis. 3. Thrombocytopenia possibly secondary to sepsis. 4. Azotemia. PLAN: Await urine culture results. Obtain blood cultures. Continue empiric ceftriaxone. We will obtain hip x-ray in light of complaints of left hip pain and recent fall. Further recommendations pending cultures. We will follow. Thank you for the kind referral. MIKE PEREZ M.D. [id number]
--- NOTE | 2019-05-31 15:24 | CON.CARD ---
Consult Consult Specialty:: Cardiology Reason for Consultation:: S/P Fall - History of Present Illness Chief Complaint: Back pain from her fall History of Present Illness: This is a 53 year old female with a PMH of DM, HTN, HLD, CKD, scleroderma, nephrolithasis, recurrent UTI's, CHF (30-35% EF), and breast Ca S/P bilateral mastectomy. She presents now with generalized weakness. On 05/27/19 she fell in her home, she stepped backwards and had a mechanical fall, no LOC reported by the patient. Nuclear Stress 04/22/19 Inferolateral infarct, no ischemia EF 37%. EKG 05/30/19 Sinus tachycardia at 138 BPM with low QRS voltage, normal intervals , normal axis, and NSSTTW Current HR 149 BPM BP 122/88 mmHg - Past Medical History [employer]: Yes: Peripheral Neuropathy (walks with a walker) Cardio/Vascular: Yes: HTN, Hyperlipdemia Gastrointestinal: Yes: Constipation Renal/: Yes: Renal Calculi, UTI ...LMP: 04/17/10 Rheumatology: Yes: Other (Scleroderma,psoriasis) Endocrine: Yes: Diabetes Mellitus Dermatology: Yes: Psoriasis, Other (scleroderma) Additional Medical History: h/o Lt. breast cancer--2009. 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 s/p bilateral mastectomies/axillary lymphadenectomy. s/p RT to Lt. chestwall. s/p adjuvant chemotherapy - Past Surgical History Past Surgical History: Yes: Appendectomy, , Mastectomy (Bilateral) - Alcohol/Substance Use Hx Alcohol Use: No History of Substance Use: reports: None - Smoking History Smoking history: Unknown if ever smoked Have you smoked in the past 12 months: No Aproximately how many cigarettes per day: 0 - Social History ADL: Family Assistance Occupation: Unemployed History of Recent Travel: No Home Medications - Allergies Allergies/Adverse Reactions: Allergies Allergy/AdvReac Type Severity Reaction Status Date / Time Sulfa (Sulfonamide Allergy Intermediate Hives Verified 03/19/19 10:19 Antibiotics) [Sulfa(Sulfonamide Antibiotics)] terbinafine HCl Allergy Intermediate Rash Verified 03/19/19 10:19 [From Lamisil] - Home Medications Home Medications: Ambulatory Orders Metoprolol Succinate [Toprol XL -] 25 mg PO DAILY 07/19/14 Mauri/D3/Mag11/Zinc/Telegraph Repeater Technician/Atif/Bor [Caltrate 600+D Plus Tablet] 1 each PO DAILY Omeprazole 20 mg PO DAILY 03/19/19 Insulin Lispro [Humalog] 0 unit SQ AC 04/10/19 Acetaminophen [Tylenol .Regular Strength -] 650 mg PO Q6H PRN tablet 04/23/19 Furosemide [Lasix] 40 mg PO DAILY 30 Days #30 tablet 04/23/19 Levothyroxine [Synthroid -] 50 mcg PO DAILY@0700 tablet 04/23/19 Metoclopramide HCl [Reglan] 10 mg PO TID #90 tablet 04/23/19 Triamcinolone 0.1% Cream [Aristocort 0.1% Cream -] 1 applic TP BID applic 04/23 Insulin Degludec [Tresiba] 4 unit SQ DAILY 05/30/19 Family Disease History - Family Disease History Family Disease History: CA: Grandparent (paternal grandmother --colon ca// maternal grandmother --breast cancer), Father (colon cancer; had kidney stones) , Mother (; also was on dialysis; had no diabetes), Other: Sister (kidney stones younger sister, colon polyps) Vital Signs: Vital Signs Temperature 97.8 F 05/31/19 07:26 Pulse Rate 104 H 05/31/19 08:28 Respiratory Rate 18 05/31/19 08:29 Blood Pressure 122/80 05/31/19 08:28 O2 Sat by Pulse Oximetry (%) 98 05/31/19 08:29 Constitutional: Yes: No Distress Eyes: Yes: WNL HENT: Yes: WNL Neck: Yes: WNL Respiratory: Yes: CTA Bilaterally Gastrointestinal: Yes: Soft Cardiovascular: Yes: Regular Rate and Rhythm Heart Sounds: Yes: S1, S2 Edema: LLE: Trace, RLE: Trace Neurological: Yes: Alert, Oriented - Other Data Labs, Other Data: CBC, BMP 05/30/19 19:55 05/30/19 19:55 INR, PTT INR 1.03 (0.83-1.09) 05/30/19 19:55 Troponin, BNP 05/30/19 19:55 Troponin I 0.37 H Troponin, BNP 05/30/19 19:55 Troponin I 0.37 H Assessment/Plan This is a 53 year old female with a PMH of DM, HTN, HLD, CKD, scleroderma, nephrolithasis, recurrent UTI's, CHF (30-35% EF), and breast Ca S/P bilateral mastectomy. She presents now with generalized weakness. On 05/27/19 she fell in her home, she stepped backwards and had a mechanical fall, no LOC reported by the patient. Nuclear Stress 04/22/19 Inferolateral infarct, no ischemia EF 37%. EKG 05/30/19 Sinus tachycardia at 138 BPM with low QRS voltage, normal intervals , normal axis, and NSSTTW Current HR 149 BPM BP 122/88 mmHg Mechanical Fall She denied LOC Walked backwards with her Rollator and had a mechanical fall Arrhythmia The rhythm appears to be sinus tachycardia On telem review, there are some strips that appear irregular, however, these appear to be blocked APC's. CHF Chronic Systolic EF 30 - 35% on 04/22/19 Continue Beta Blockers metoprolol succinate 25 mg PO daily Does not require IV diuretics at this time Positive Troponin Troponin I 0.37 This most likely represents demand ischemia with decreased renal clearance, and not an acute coronary syndrome
[2019-05-31] MEDS: metoPROLOL SUCCINATE 25 MG TAB.SR.24H (FP) PO SCH (16:25)
--- NOTE | 2019-05-31 20:47 | CONS ---
DATE OF CONSULTATION: DATE OF DICTATION: 05/31/2019 GASTROINTESTINAL CONSULTATION HISTORY OF PRESENT ILLNESS: The patient is a 53-year-old female with a past medical history of CKD stage 3, insulin dependent diabetes, diabetic nephropathy, hyperlipidemia, CHF, breast cancer status post mastectomy, scleroderma, psoriasis. She is admitted to the hospital status post a fall and was noted to have anemia. In 2018 she had an upper endoscopy and colonoscopy performed for anemia and guaiac positive stool. These tests were performed in May 18, 2018. The upper endoscopy revealed reactive gastropathy and colonoscopy a polyp was removed. A 3-year followup was advised given her family history of colon cancer. At this time, she denies any abdominal pain, nausea, vomiting, melena, hematochezia, weight loss, constipation, or decreased appetite. PAST MEDICAL AND SURGICAL HISTORY: As listed in the HPI with the addition of an appendectomy. FAMILY HISTORY: Significant for CAD and breast cancer as well as questionable history of colonic polyps in the family that were adenomatous. SOCIAL HISTORY: Does not smoke, drinks occasionally, no alcohol. ALLERGIES: SULFA, TERBINAFINE. HOME MEDICATIONS: Reviewed include metoprolol, omeprazole, insulin, Lasix, Synthroid, Reglan, and triamcinolone cream. REVIEW OF SYSTEMS: As per the HPI. PHYSICAL EXAMINATION: VITAL SIGNS: Temperature 98, pulse 90, blood pressure 120/56, respiratory rate 18, oxygen saturation 98%. GENERAL: In no acute distress. Pleasant female. HEENT: Anicteric sclerae. CARDIOVASCULAR: S1, S2, regular rate and rhythm. LUNGS: Bilaterally clear to auscultation. ABDOMEN: Soft, nontender. EXTREMITIES: No edema. LABORATORY: White blood cell count 5.6, hemoglobin and hematocrit 7.7/23, MCV 91, platelet count 113, INR 1. She had a chest x-ray which revealed slight decrease in the left pulmonary pleural changes, prominent heart, clear left upper lobe and clear right lung. She also had a PET CT which did not reveal any intracranial hemorrhage, edema, midline shift, or mass effect. No CT evidence of territorial ischemic changes. Stool for occult blood was positive on this admission. IMPRESSION: Normocytic anemia, fecal occult blood testing is positive. Gastrointestinal loss cannot be excluded secondary to peptic ulcer disease, gastropathy, angiectasias, recurrent polyps. RECOMMENDATION: Transfuse PRBCs to a hemoglobin of 9 or better. Continue with Protonix 40 mg IV daily. Trend CBC q.12 while hospitalized. Continue antibiotics. Follow up cultures. Would advance to clear liquid diet, and if her hemoglobin were to remain stable, she can be advanced as tolerated. She would benefit from a repeat upper endoscopy once the acute infectious process has resolved. This can be done as an outpatient. Also, she does not have any sign of an overt GI bleed at this time. She is not tachycardic, and she is hemodynamically stable. Avoid NSAIDs. DO BERHANE DUMAS/[id number]
[2019-05-31] MEDS ORDERED: CHLORHEXIDINE GLUCONATE 4% CLEANSER FOR DECOLONIZATION TP SCH (22:00)
[2019-06-01] MEDS: SODIUM CHLORIDE 1,000 ML IV SCH (00:15)
[2019-06-01] MEDS ORDERED: INSULIN (NOVOLOG) ASPART 100 UNITS/ML 10ML VIAL ONE (07:00)
[2019-06-01] MEDS ORDERED: LEVOTHYROXINE NA 50 MCG TABLET (FP) PO SCH (07:00)
[2019-06-01] MEDS: INSULIN SLIDING SCALE (NOVOLOG) 1 VIAL SQ SCH ×3 (07:01→17:23)
[2019-06-01 07:50] LABS: BASO % 0.5 % (0-2.0); EOS % 0.2 % (0-4.5); HEMATOCRIT 34.2 % (32.4-45.2); HEMOGLOBIN 11.5 GM/dL (10.7-15.3); LYMPH % 6.2 % (8-40); MCH 30.4 pg (25.7-33.7); MCHC 33.6 g/dl (32.0-36.0); MEAN CELL VOLUME 90.5 fl (80-96); MEAN PLT VOLUME 7.3 fl (7.5-11.1); MONO % 14.1 % (3.8-10.2); PLATELET COUNT 123 K/MM3 (134-434); RBC 3.78 M/mm3 (3.60-5.2); RDW 15.6 % (11.6-15.6); WHITE BLOOD COUNT 6.9 K/mm3 (4.0-10.0)
[2019-06-01 08:25] LABS: ALBUMIN 1.9 g/dl (3.4-5.0); BILIRUBIN,TOTAL 0.4 mg/dL (0.2-1); BLOOD UREA NITROGEN 47.4 mg/dL (7-18); CALCIUM 8.1 mg/dL (8.5-10.1); CREATININE 2.5 mg/dL (0.55-1.3); POTASSIUM 5.4 mmol/L (3.5-5.1); TOT PROT 5.1 g/dl (6.4-8.2)
--- NOTE | 2019-06-01 08:38 | PN ---
Progress Note, Physician Chief Complaint: feeling better tele nsr History of Present Illness: This is a 53 year old female with a PMH of DM, HTN, HLD, CKD, scleroderma, nephrolithasis, recurrent UTI's, CHF (30-35% EF), and breast Ca S/P bilateral mastectomy. She presents now with generalized weakness. On 05/27/19 she fell in her home, she stepped backwards and had a mechanical fall, no LOC reported by the patient. Nuclear Stress 04/22/19 Inferolateral infarct, no ischemia EF 37%. EKG 05/30/19 Sinus tachycardia at 138 BPM with low QRS voltage, normal intervals , normal axis, and NSSTTW - Current Medication List Current Medications: Active Medications Acetaminophen (Tylenol -) 650 mg PO Q6H PRN PRN Reason: PAIN Last Admin: 05/31/19 10:51 Dose: 650 mg Chlorhexidine Gluconate (Hibiclens For Decolonization -) 1 applic TP HS [facility] Sodium Chloride (Normal Saline -) 1,000 mls @ 75 mls/hr IV ASDIR [facility] Last Admin: 06/01/19 00:15 Dose: 75 mls/hr Ceftriaxone Sodium 1 gm/ (Dextrose) 50 mls @ 100 mls/hr IVPB DAILY [facility]; Protocol Last Admin: 05/31/19 10:45 Dose: 100 mls/hr Insulin Aspart (Novolog Vial Sliding Scale -) 1 vial SQ TIDAC [facility]; Protocol Last Admin: 06/01/19 07:01 Dose: 4 units Levothyroxine Sodium (Synthroid -) 50 mcg PO DAILY@0700 [facility] Last Admin: 06/01/19 07:02 Dose: 50 mcg Metoprolol Succinate (Toprol Xl -) 25 mg PO DAILY [facility] Last Admin: 05/31/19 16:25 Dose: 25 mg Mupirocin (Bactroban Ointment (For Decolonization) -) 1 applic NS BID [facility] Stop: 06/05/19 09:59 Pantoprazole Sodium (Protonix Iv) 40 mg IVPUSH BID [facility] Last Admin: 05/31/19 22:48 Dose: 40 mg - Objective Vital Signs: Vital Signs Temperature 97.7 F 06/01/19 07:00 Pulse Rate 88 06/01/19 07:00 Respiratory Rate 20 06/01/19 07:00 Blood Pressure 109/58 L 06/01/19 07:00 O2 Sat by Pulse Oximetry (%) 100 05/31/19 21:00 Constitutional: Yes: No Distress, Calm Eyes: Yes: EOM Intact HENT: Yes: Normocephalic Neck: Yes: Trachea Midline Cardiovascular: Yes: Regular Rate and Rhythm Respiratory: Yes: CTA Bilaterally Gastrointestinal: Yes: Normal Bowel Sounds, Soft Extremities: Yes: WNL Edema: No Labs: CBC, BMP 06/01/19 05:40 06/01/19 05:40 INR, PTT INR 1.03 (0.83-1.09) 05/30/19 19:55 Assessment/Plan This is a 53 year old female with a PMH of DM, HTN, HLD, CKD, scleroderma, nephrolithasis, recurrent UTI's, CHF (30-35% EF), and breast Ca S/P bilateral mastectomy. She presents now with generalized weakness. On 05/27/19 she fell in her home, she stepped backwards and had a mechanical fall, no LOC reported by the patient. Nuclear Stress 04/22/19 Inferolateral infarct, no ischemia EF 37%. EKG 05/30/19 Sinus tachycardia at 138 BPM with low QRS voltage, normal intervals , normal axis, and NSSTTW Current HR 149 BPM BP 122/88 mmHg Mechanical Fall She denied LOC Walked backwards with her Rollator and had a mechanical fall Arrhythmia The rhythm appears to be sinus tachycardia On telem review, there are some strips that appear irregular, however, these appear to be blocked APC's. Stable to DC telemetry. CHF Chronic Systolic EF 30 - 35% on 04/22/19 Continue Beta Blockers metoprolol succinate 25 mg PO daily Does not require IV diuretics at this time Positive Troponin Troponin I 0.37 This most likely represents demand ischemia with decreased renal clearance, and not an acute coronary syndrome No plans for cardiac workup at this point. Call us with questions.
[2019-06-01] MEDS ORDERED: cefTRIAXone SODIUM 1 GM VIAL ONE (09:34)
[2019-06-01] MEDS ORDERED: DEXTROSE 5%-WATER - 50 ML IVPB ONE (09:35)
[2019-06-01] MEDS: PANTOPRAZOLE SODIUM 40 MG VIAL IVPUSH SCH ×2 (09:42→22:32)
[2019-06-01] MEDS: metoPROLOL SUCCINATE 25 MG TAB.SR.24H (FP) PO SCH (09:43)
[2019-06-01] MEDS: CEFTRIAXONE 1 GM in DEXTROSE 5%-WATER - 50 ML IVPB SCH (09:43)
[2019-06-01 11:58] LABS: ANISOCYTOSIS 1+; MACROCYTOSIS 1+; OVALOCYTE 1+; PLATELET ESTIMATE DECREASED
--- NOTE | 2019-06-01 15:52 | CONSULT ---
Consult Consult Specialty:: Endocrinology Referred by:: Dr Oswald Reason for Consultation:: Hyperglycemia - History of Present Illness Chief Complaint: Fall History of Present Illness: This is a 53 y/o woman with a h/o HTN, HLD, DM since childhood, Anemia, CKD, CHF (30-35% EF), Nephrolithasis, UTIs, Scleroderma, Psoriasis, Breast Ca s/p Bilateral Mastectomy who presented to the emergency department with generalized weakness, syncope, and tachycardia. Per the patient, she had a fall on in her living room after fall on her slippers around 1 PM. Pt was found on the floor by her about an hour later and her blood sugar was 57. Denies any LOC.Per the patient, she states she has had generalized weakness since . She is referred for management of hyperglycemia. She takes Tresiba 4 units daily with Novolog 2 to 4 units TID with meals. FS at home has been ranging from 200 to 220. 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 breast cancer--2009. 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 s/p bilateral mastectomies/axillary lymphadenectomy. s/p RT to Lt. chestwall. s/p adjuvant chemotherapy - Past Surgical History Past Surgical History: Yes: Appendectomy, , Mastectomy (Bilateral) - Alcohol/Substance Use Hx Alcohol Use: No History of Substance Use: reports: None - Smoking History Smoking history: Unknown if ever smoked Have you smoked in the past 12 months: No Aproximately how many cigarettes per day: 0 - Social History ADL: Family Assistance Occupation: Unemployed History of Recent Travel: No Home Medications - Allergies Allergies/Adverse Reactions: Allergies Allergy/AdvReac Type Severity Reaction Status Date / Time Sulfa (Sulfonamide Allergy Intermediate Hives Verified 03/19/19 10:19 Antibiotics) [Sulfa(Sulfonamide Antibiotics)] terbinafine HCl Allergy Intermediate Rash Verified 03/19/19 10:19 [From Lamisil] - Home Medications Home Medications: Ambulatory Orders Metoprolol Succinate [Toprol XL -] 25 mg PO DAILY 07/19/14 Mauri/D3/Mag11/Zinc/Die Grinder/Atif/Bor [Caltrate 600+D Plus Tablet] 1 each PO DAILY Omeprazole 20 mg PO DAILY 03/19/19 Insulin Lispro [Humalog] 0 unit SQ AC 04/10/19 Acetaminophen [Tylenol .Regular Strength -] 650 mg PO Q6H PRN tablet 04/23/19 Furosemide [Lasix] 40 mg PO DAILY 30 Days #30 tablet 04/23/19 Levothyroxine [Synthroid -] 50 mcg PO DAILY@0700 tablet 04/23/19 Metoclopramide HCl [Reglan] 10 mg PO TID #90 tablet 04/23/19 Triamcinolone 0.1% Cream [Aristocort 0.1% Cream -] 1 applic TP BID applic 04/23 Insulin Degludec [Tresiba] 4 unit SQ DAILY 05/30/19 Family Disease History - Family Disease History Family Disease History: CA: Grandparent (paternal grandmother --colon ca// maternal grandmother --breast cancer), Father (colon cancer; had kidney stones) , Mother (; also was on dialysis; had no diabetes), Other: Sister (kidney stones younger sister, colon polyps) Review of Systems - Review of Systems Constitutional: reports: Weakness Eyes: reports: No Symptoms HENT: reports: No Symptoms Neck: reports: No Symptoms Cardiovascular: reports: No Symptoms Respiratory: reports: No Symptoms Genitourinary: reports: No Symptoms Musculoskeletal: reports: Back Pain Integumentary: reports: Blister (over legs, dried) Neurological: reports: No Symptoms Endocrine: reports: No Symptoms Physical Exam Vital Signs: Vital Signs Temperature 98.2 F 06/01/19 11:00 Pulse Rate 86 06/01/19 11:00 Respiratory Rate 20 06/01/19 11:00 Blood Pressure 133/84 06/01/19 11:00 O2 Sat by Pulse Oximetry (%) 100 06/01/19 09:00 Constitutional: Yes: No Distress, Calm Eyes: Yes: Conjunctiva Clear, EOM Intact HENT: Yes: Atraumatic, Normocephalic Neck: Yes: Supple, Trachea Midline Cardiovascular: Yes: Regular Rate and Rhythm Respiratory: Yes: Regular, CTA Bilaterally Gastrointestinal: Yes: Normal Bowel Sounds, Soft Extremities: Yes: Other (dried blister both legs) Edema: No Neurological: Yes: Alert, Oriented Labs: CBC, BMP 06/01/19 05:40 06/01/19 05:40 Imaging - Results X-ray: Report Reviewed Cat Scan: Report Reviewed Assessment/Plan AP GENESIS DM S/P Fall HypothyroidismTSH 7.96 HTN HLD Monitor BGM QACHS and 3 AM Start Levemir 3 units daily in morning Change Novolog Ss coverage Increase LT4 62.5mcg QD Will F/U
--- NOTE | 2019-06-01 15:54 | PN ---
Progress Note (short form) - Note Progress Note: pt seen/ examined comfortable but back pain issues - want lidoderm patch chronic ill appearance but no distress Vital Signs Temp 98.2 F 06/01/19 11:00 Pulse 86 06/01/19 11:00 Resp 20 06/01/19 11:00 BP 133/84 06/01/19 11:00 Pulse Ox 100 06/01/19 09:00 Intake & Output 05/31/19 06/01/19 06/01/19 23:59 11:59 23:59 Intake Total 250 825 Balance 250 825 Weight 130 lb Intake: IV 825 Normal Saline - 1,000 ml 825 @ 75 mls/hr IV ASDIR [facility] Rx#:[id number] Oral 250 Other: Voiding Method Diaper Diaper Diaper Bowel Movement No No Weight Measurement Method Standing Scale Active Medications Acetaminophen (Tylenol -) 650 mg PO Q6H PRN PRN Reason: PAIN Last Admin: 05/31/19 10:51 Dose: 650 mg Chlorhexidine Gluconate (Hibiclens For Decolonization -) 1 applic TP HS TERES[facility] Sodium Chloride (Normal Saline -) 1,000 mls @ 75 mls/hr IV ASDIR [facility] Last Admin: 06/01/19 00:15 Dose: 75 mls/hr Ceftriaxone Sodium 1 gm/ (Dextrose) 50 mls @ 100 mls/hr IVPB DAILY [facility]; Protocol Last Admin: 06/01/19 09:43 Dose: 100 mls/hr Insulin Aspart (Novolog Vial Sliding Scale -) 1 vial SQ TIDAC [facility]; Protocol Last Admin: 06/01/19 13:07 Dose: 6 units Levothyroxine Sodium (Synthroid -) 50 mcg PO DAILY@0700 [facility] Last Admin: 06/01/19 07:02 Dose: 50 mcg Metoprolol Succinate (Toprol Xl -) 25 mg PO DAILY [facility] Last Admin: 06/01/19 09:43 Dose: 25 mg Mupirocin (Bactroban Ointment (For Decolonization) -) 1 applic NS BID [facility] Stop: 06/05/19 09:59 Pantoprazole Sodium (Protonix Iv) 40 mg IVPUSH BID [facility] Last Admin: 06/01/19 09:42 Dose: 40 mg CBC, BMP 06/01/19 05:40 06/01/19 05:40 Microbiology 05/31/19 14:00 MRSA Screen - Final Nares - Mrsa Screen - Right NO MRSA ISOLATED 05/31/19 14:00 MRSA Screen - Final Nares - Left Nares NO MRSA ISOLATED 05/31/19 14:00 MRSA Screen - Final Breast - Right NO MRSA ISOLATED 05/31/19 14:00 MRSA Screen - Final Breast - Left NO MRSA ISOLATED 05/30/19 23:30 Urine Culture - Final Urine - Urine - Catheterized Lactose Fermenting Neg Bacilli physical Exam. Constitutional: Yes: No Distress, Calm, Obese Eyes: Yes: Conjunctiva Clear, Other (pale) Neck: Yes: Supple Cardiovascular: Yes: Regular Rate and Rhythm Respiratory: Yes: Diminished Gastrointestinal: Yes: Soft Edema: LLE: 1+, RLE: 1+-- chronic skin changes -- no sign of infection. Psychiatric: Yes: Alert - ....Imaging x ray -- Arthritis. Problem List - Problems (1) Anemia Code(s): D64.9 - ANEMIA, UNSPECIFIED Qualifiers: (2) Fever in adult Code(s): R50.9 - FEVER, UNSPECIFIED (3) History of fall Code(s): Z91.81 - HISTORY OF FALLING (4) Hyperlipemia Code(s): E78.5 - HYPERLIPIDEMIA, UNSPECIFIED (5) Uncontrolled diabetes mellitus Code(s): E11.65 - TYPE 2 DIABETES MELLITUS WITH HYPERGLYCEMIA (6) Urinary tract infection Code(s): N39.0 - URINARY TRACT INFECTION, SITE NOT SPECIFIED Qualifiers: (7) Acute renal failure superimposed on chronic kidney disease Code(s): N17.9 - ACUTE KIDNEY FAILURE, UNSPECIFIED; N18.9 - CHRONIC KIDNEY DISEASE, UNSPECIFIED Assessment/Plan ASSESSMENT/PLAN: clinically better continue present care f/u cultures u/c noted <[id number] monitor labs oob - chair physical therapy d/c tele will follow Discussed with pt / pts . Problem List - Problems (1) Anemia Code(s): D64.9 - ANEMIA, UNSPECIFIED Qualifiers: (2) Fever in adult Code(s): R50.9 - FEVER, UNSPECIFIED (3) History of fall Code(s): Z91.81 - HISTORY OF FALLING (4) Hyperlipemia Code(s): E78.5 - HYPERLIPIDEMIA, UNSPECIFIED (5) Uncontrolled diabetes mellitus Code(s): E11.65 - TYPE 2 DIABETES MELLITUS WITH HYPERGLYCEMIA (6) Urinary tract infection Code(s): N39.0 - URINARY TRACT INFECTION, SITE NOT SPECIFIED Qualifiers: (7) Acute renal failure superimposed on chronic kidney disease Code(s): N17.9 - ACUTE KIDNEY FAILURE, UNSPECIFIED; N18.9 - CHRONIC KIDNEY DISEASE, UNSPECIFIED
[2019-06-01] MEDS: LIDOCAINE 5% TOPICAL PATCH TP SCH (17:23)
[2019-06-01] MEDS: ACETAMINOPHEN 325 MG TABLET (FP) PO PRN (19:28)
--- NOTE | 2019-06-01 19:58 | PN.GI ---
GI Progress Note Subjective: No acute events Complains of upper back pain. Hip pain improved No overt bleeding. Received 2 U PRBC - Objective Vital Signs: Vital Signs Temperature 98.2 F 06/01/19 11:00 Pulse Rate 86 06/01/19 11:00 Respiratory Rate 20 06/01/19 11:00 Blood Pressure 133/84 06/01/19 11:00 O2 Sat by Pulse Oximetry (%) 100 06/01/19 09:00 Constitutional: Calm Eyes: No: Sclera Icterus Cardiovascular: Yes: Regular Rate and Rhythm Respiratory: Yes: Diminished (at bases bilaterally) Gastrointestinal Inspection: No: Distention ...Auscultate: Yes: Normoactive Bowel Sounds ...Palpate: Yes: Soft. No: Tenderness ...Percussion: No: Tympanitic Edema: No Neurological: Yes: Alert Labs: CBC, BMP 06/01/19 05:40 06/01/19 05:40 INR, PTT INR 1.03 (0.83-1.09) 05/30/19 19:55 Hepatic Panel Total Bilirubin 0.4 mg/dL (0.2-1) 06/01/19 05:40 AST 46 U/L (15-37) H 06/01/19 05:40 ALT 17 U/L (13-61) 06/01/19 05:40 Alkaline Phosphatase 209 U/L (45-117) H 06/01/19 05:40 Albumin 1.9 g/dl (3.4-5.0) L 06/01/19 05:40 Problem List - Problems (1) Occult GI bleeding Assessment/Plan: If medicall cleared / electrolytes permit, plan for EGD tomorrow. Discussed potential risks of the procedure like but not limited to bleeding, perforation requiring surgery to repair, infection, sedation medication effects all of which could be potentially life threatening. She has agreed to the procedure. NPO after midnight except meds with small sips water. Monitor H/H and for signs of active GI bleed Code(s): R19.5 - OTHER FECAL ABNORMALITIES
[2019-06-01] MEDS ORDERED: traMADol HCL 50 MG TABLET PO ONE (21:33)
[2019-06-01] MEDS: LIDOCAINE PATCH REMOVAL MC SCH (22:32)
[2019-06-02] MEDS: SODIUM CHLORIDE 1,000 ML IV SCH (03:45)
[2019-06-02] MEDS: LEVOTHYROXINE NA 25 MCG TABLET (FP) PO SCH (06:15)
[2019-06-02] MEDS: ACETAMINOPHEN 325 MG TABLET (FP) PO PRN (06:15)
[2019-06-02] MEDS: INSULIN SLIDING SCALE (NOVOLOG) 1 VIAL SQ SCH ×3 (06:22→17:40)
[2019-06-02] MEDS ORDERED: PT OWN MED DRAWER 7, Y5N ONE ×2 (06:51→10:10)
[2019-06-02 07:37] LABS: BASO % 0.3 % (0-2.0); EOS % 1.6 % (0-4.5); HEMATOCRIT 33.6 % (32.4-45.2); HEMOGLOBIN 11.2 GM/dL (10.7-15.3); LYMPH % 7.9 % (8-40); MCH 30.6 pg (25.7-33.7); MCHC 33.4 g/dl (32.0-36.0); MEAN CELL VOLUME 91.5 fl (80-96); MEAN PLT VOLUME 6.8 fl (7.5-11.1); MONO % 14.8 % (3.8-10.2); NEUT % 75.4 % (42.8-82.8); PLATELET COUNT 143 K/MM3 (134-434); RBC 3.67 M/mm3 (3.60-5.2)
[2019-06-02 08:10] LABS: ALBUMIN 1.8 g/dl (3.4-5.0); BILIRUBIN,TOTAL 0.3 mg/dL (0.2-1); BLOOD UREA NITROGEN 47.6 mg/dL (7-18); CALCIUM 7.9 mg/dL (8.5-10.1); CREATININE 2.5 mg/dL (0.55-1.3); TOT PROT 5.2 g/dl (6.4-8.2)
[2019-06-02] MEDS: PANTOPRAZOLE SODIUM 40 MG VIAL IVPUSH SCH ×2 (10:16→22:22)
[2019-06-02] MEDS: metoPROLOL SUCCINATE 25 MG TAB.SR.24H (FP) PO SCH (10:16)
[2019-06-02] MEDS: CEFTRIAXONE 1 GM in DEXTROSE 5%-WATER - 50 ML IVPB SCH (10:16)
[2019-06-02] MEDS: INSULIN (LEVEMIR) 100 UNITS/ML UNITS SQ SCH (10:17)
[2019-06-02] MEDS: LIDOCAINE 5% TOPICAL PATCH TP SCH (10:17)
--- NOTE | 2019-06-02 13:29 | PN ---
Progress Note (short form) - Note Progress Note: pt seen/ examined for egd today comfortable denies cp/sob itching legs Vital Signs Temp 98.3 F 06/02/19 10:00 Pulse 67 06/02/19 10:00 Resp 100 H 06/02/19 10:00 BP 118/67 06/02/19 10:00 Pulse Ox 99 06/02/19 09:00 Intake & Output 06/01/19 06/02/19 06/02/19 23:59 11:59 23:59 Intake Total 750 825 Balance 750 825 Weight 134 lb 9.6 oz Intake: IV 500 825 Normal Saline - 1,000 ml 500 825 @ 75 mls/hr IV ASDIR [facility] Rx#:[id number] IVPB 50 Oral 200 Other: Voiding Method Diaper Diaper Bowel Movement Yes # Bowel Movements 1 Weight Measurement Method Standing Scale Active Medications Acetaminophen (Tylenol -) 650 mg PO Q6H PRN PRN Reason: PAIN Last Admin: 06/02/19 06:15 Dose: 650 mg Sodium Chloride (Normal Saline -) 1,000 mls @ 75 mls/hr IV ASDIR [facility] Last Admin: 06/02/19 03:45 Dose: 75 mls/hr Ceftriaxone Sodium 1 gm/ (Dextrose) 50 mls @ 100 mls/hr IVPB DAILY [facility]; Protocol Last Admin: 06/02/19 10:16 Dose: 100 mls/hr Insulin Aspart (Novolog Vial Sliding Scale -) 1 vial SQ TIDAC [facility]; Protocol Last Admin: 06/02/19 06:22 Dose: 5 units Insulin Detemir (Levemir Vial) 3 units SQ DAILY [facility] Last Admin: 06/02/19 10:17 Dose: Not Given Levothyroxine Sodium (Synthroid -) 62.5 mcg PO DAILY@0700 [facility] Last Admin: 06/02/19 06:15 Dose: 62.5 mcg Lidocaine (Lidoderm Patch -) 2 patch TP DAILY [facility] Last Admin: 06/02/19 10:17 Dose: 2 patch Metoprolol Succinate (Toprol Xl -) 25 mg PO DAILY [facility] Last Admin: 06/02/19 10:16 Dose: 25 mg Miscellaneous (Lidoderm Patch Removal) 1 each MC DAILY@2200 [facility] Last Admin: 06/01/19 22:32 Dose: 1 each Pantoprazole Sodium (Protonix Iv) 40 mg IVPUSH BID [facility] Last Admin: 06/02/19 10:16 Dose: 40 mg CBC, BMP 06/02/19 07:15 06/02/19 07:15 Physical Exam. Constitutional: Yes: No Distress, Calm, Obese Eyes: Yes: Conjunctiva Clear, Other (pale) Neck: Yes: Supple Cardiovascular: Yes: Regular Rate and Rhythm Respiratory: Yes: Diminished Gastrointestinal: Yes: Soft Edema: LLE: 1+, RLE: 1+-- chronic skin changes -- no sign of infection. Psychiatric: Yes: Alert ASSESSMENT/PLAN: clinically better continue present care monitor labs oob - chair physical therapy d/c tele will follow A& D ointment for itching. Problem List - Problems (1) Anemia Code(s): D64.9 - ANEMIA, UNSPECIFIED Qualifiers: (2) Fever in adult Code(s): R50.9 - FEVER, UNSPECIFIED (3) History of fall Code(s): Z91.81 - HISTORY OF FALLING (4) Hyperlipemia Code(s): E78.5 - HYPERLIPIDEMIA, UNSPECIFIED (5) Uncontrolled diabetes mellitus Code(s): E11.65 - TYPE 2 DIABETES MELLITUS WITH HYPERGLYCEMIA (6) Urinary tract infection Code(s): N39.0 - URINARY TRACT INFECTION, SITE NOT SPECIFIED Qualifiers: (7) Acute renal failure superimposed on chronic kidney disease Code(s): N17.9 - ACUTE KIDNEY FAILURE, UNSPECIFIED; N18.9 - CHRONIC KIDNEY DISEASE, UNSPECIFIED
--- NOTE | 2019-06-02 14:31 | PN ---
Progress Note (short form) - Note Progress Note: Brief GI note EGD performed today revealing large prepyloric/antral polypoid lesion, multiple biopsies taken. Distal esophagitis with ulcer seen, biopsied. See scanned report for complete details. Recommendations: -PPI BID -Follow up pathology results -Pending path, may require repeat EGD with attempted resection with advanced endoscopist vs surgical consult -Discussed with pt after the procedure
[2019-06-02] MEDS: LIDOCAINE PATCH REMOVAL MC SCH (22:22)
[2019-06-03] MEDS: LEVOTHYROXINE NA 25 MCG TABLET (FP) PO SCH (06:28)
[2019-06-03] MEDS: INSULIN SLIDING SCALE (NOVOLOG) 1 VIAL SQ SCH ×4 (06:29→18:12)
--- NOTE | 2019-06-03 08:53 | PN ---
Progress Note (short form) - Note Progress Note: Feels better Still on liquid diet Vital Signs Period Temp Pulse Resp BP Sys/Sibley Pulse Ox Last 24 Hr 97.2 F-98.3 F 67-90 17-100 99-122/50-83 99-100 PE: AOx3 Neck: supple, No JVD HEENT: EOMI Lungs: CTA CVS: S1S2 Abd: Benign Ext: No edema. Scab both legs coming off CMP Sodium 136 mmol/L (136-145) 06/02/19 07:15 Potassium 5.0 mmol/L (3.5-5.1) 06/02/19 07:15 Chloride 108 mmol/L (98-107) H 06/02/19 07:15 Carbon Dioxide 14 mmol/L (21-32) L 06/02/19 07:15 Anion Gap 14 MMOL/L (8-16) 06/02/19 07:15 BUN 47.6 mg/dL (7-18) H 06/02/19 07:15 Creatinine 2.5 mg/dL (0.55-1.3) H 06/02/19 07:15 Est GFR (CKD-EPI)AfAm 24.60 06/02/19 07:15 Est GFR (CKD-EPI)NonAf 21.23 06/02/19 07:15 POC Glucometer 384 UNITS (80-120) 06/03/19 06:27 Random Glucose 325 mg/dL (74-106) H* 06/02/19 07:15 Hemoglobin A1c % 6.3 % (4.2-6.3) 06/01/19 05:40 Lactic Acid 1.3 mmol/L (0.4-2.0) 05/30/19 22:15 Calcium 7.9 mg/dL (8.5-10.1) L 06/02/19 07:15 Total Bilirubin 0.3 mg/dL (0.2-1) 06/02/19 07:15 AST 32 U/L (15-37) 06/02/19 07:15 ALT 16 U/L (13-61) 06/02/19 07:15 Alkaline Phosphatase 231 U/L (45-117) H 06/02/19 07:15 Creatine Kinase 188 U/L (26-192) 05/30/19 19:55 Creatine Kinase Index 1.1 % (0.0-5.0) 05/30/19 19:55 CK-MB (CK-2) 2.2 ng/mL (0.5-3.6) 05/30/19 19:55 Troponin I 0.37 ng/ml (0.00-0.05) H 05/30/19 19:55 Total Protein 5.2 g/dl (6.4-8.2) L 06/02/19 07:15 Albumin 1.8 g/dl (3.4-5.0) L 06/02/19 07:15 TSH 7.96 uIU/ml (0.358-3.74) H 05/30/19 19:55 Free T4 1.01 ng/dl (0.76-1.46) 05/30/19 19:55 Current Medications Generic Name Dose Route Start Last Admin Trade Name Freq PRN Reason Stop Dose Admin Acetaminophen 650 mg 05/31/19 03:12 06/02/19 06:15 Tylenol - PO 650 mg Q6H PRN Administration PAIN Sodium Chloride 1,000 mls @ 75 mls/hr 05/31/19 00:30 06/02/19 03:45 Normal Saline - IV 75 mls/hr ASDIR [facility] Administration Ceftriaxone Sodium 1 gm/ 50 mls @ 100 mls/hr 05/31/19 10:00 06/02/19 10:16 Dextrose IVPB 100 mls/hr DAILY [facility] Administration Protocol Insulin Aspart 1 vial 06/01/19 16:00 06/03/19 06:29 Novolog Vial Sliding Scale - SQ 6 units TIDAC [facility] Administration Protocol Insulin Detemir 3 units 06/02/19 10:00 06/02/19 10:17 Levemir Vial SQ Not Given DAILY [facility] Levothyroxine Sodium 62.5 mcg 06/02/19 07:00 06/03/19 06:28 Synthroid - PO 62.5 mcg DAILY@0700 [facility] Administration Lidocaine 2 patch 06/01/19 16:00 06/02/19 10:17 Lidoderm Patch - TP 2 patch DAILY [facility] Administration Metoprolol Succinate 25 mg 05/31/19 12:30 06/02/19 10:16 Toprol Xl - PO 25 mg DAILY [facility] Administration Miscellaneous 1 each 06/01/19 22:00 06/02/19 22:22 Lidoderm Patch Removal MC 1 each DAILY@2200 [facility] Administration Pantoprazole Sodium 40 mg 05/31/19 10:00 06/02/19 22:22 Protonix Iv IVPUSH 40 mg BID [facility] Administration AP GENESIS DM S/P Fall HypothyroidismTSH 7.96 HTN HLD Gastric polyp: EGD report noted. Monitor BGM QACHS and 3 AM Levemir 3 units daily in morning Novolog Ss coverage LT4 62.5mcg QD Will F/U
[2019-06-03] MEDS: CEFTRIAXONE 1 GM in DEXTROSE 5%-WATER - 50 ML IVPB SCH (10:45)
[2019-06-03] MEDS: LIDOCAINE 5% TOPICAL PATCH TP SCH (10:47)
[2019-06-03] MEDS: metoPROLOL SUCCINATE 25 MG TAB.SR.24H (FP) PO SCH (10:47)
[2019-06-03] MEDS: PANTOPRAZOLE SODIUM 40 MG VIAL IVPUSH SCH ×2 (10:47→23:09)
[2019-06-03] MEDS: INSULIN (LEVEMIR) 100 UNITS/ML UNITS SQ SCH (10:50)
--- NOTE | 2019-06-03 15:06 | PN.GI ---
GI Progress Note Subjective: No acute events Tolerating PO Prepyloric polypoid lesion noted on EGD yesterday. Awaiting pathology results Complains of back pain (upper/lower) Did still state that she continues to drink alcohol, the last being a week ago, "not as much as before" - Objective Vital Signs: Vital Signs Temperature 97.6 F 06/03/19 09:00 Pulse Rate 89 06/03/19 09:00 Respiratory Rate 20 06/03/19 09:00 Blood Pressure 145/78 06/03/19 09:00 O2 Sat by Pulse Oximetry (%) 100 06/03/19 09:00 Constitutional: Calm Eyes: No: Sclera Icterus Cardiovascular: Yes: Regular Rate and Rhythm Gastrointestinal Inspection: No: Distention ...Auscultate: Yes: Normoactive Bowel Sounds ...Palpate: Yes: Soft. No: Tenderness Edema: No (No LE edema) Labs: CBC, BMP 06/02/19 07:15 06/02/19 07:15 INR, PTT INR 1.03 (0.83-1.09) 05/30/19 19:55 Problem List - Problems (1) Occult GI bleeding Assessment/Plan: S/P EGD. polypoid prepyloric lesion noted Awaiting pathology results Code(s): R19.5 - OTHER FECAL ABNORMALITIES
[2019-06-03] MEDS ORDERED: oxyCODONE HCL 5 MG TABLET PO ONE (16:26)
--- NOTE | 2019-06-03 16:26 | PN ---
Progress Note (short form) - Note Progress Note: pt seen/ examined complains of pain - back - says pulled muscle when getting out of bed. wants stronger med sitting in chair s/p egd- findings noted awaiting pathology pt also admits continue to drink no distress chronic ill appearance Vital Signs Temp 98.3 F 06/03/19 14:00 Pulse 78 06/03/19 14:00 Resp 20 06/03/19 14:00 BP 131/77 06/03/19 14:00 Pulse Ox 100 06/03/19 09:00 Intake & Output 06/02/19 06/03/19 06/03/19 23:59 11:59 23:59 Intake Total 1000 30 Balance 1000 30 Weight 134 lb 138 lb 6.4 oz Intake: IV 1000 30 Normal Saline - 1,000 ml 600 @ 75 mls/hr IV ASDIR [facility] Rx#:[id number] Saline lock 30 Other: Voiding Method Diaper Incontinent Incontinent Bowel Movement Yes # Bowel Movements 1 Height 4 ft 11 in Body Mass Index (BMI) 27.0 Weight Measurement Method Standing Scale Active Medications Acetaminophen (Tylenol -) 650 mg PO Q6H PRN PRN Reason: PAIN Last Admin: 06/02/19 06:15 Dose: 650 mg Sodium Chloride (Normal Saline -) 1,000 mls @ 75 mls/hr IV ASDIR [facility] Last Admin: 06/02/19 03:45 Dose: 75 mls/hr Ceftriaxone Sodium 1 gm/ (Dextrose) 50 mls @ 100 mls/hr IVPB DAILY [facility]; Protocol Last Admin: 06/03/19 10:45 Dose: 100 mls/hr Insulin Aspart (Novolog Vial Sliding Scale -) 1 vial SQ TIDAC [facility]; Protocol Last Admin: 06/03/19 12:39 Dose: 4 units Insulin Detemir (Levemir Vial) 3 units SQ DAILY [facility] Last Admin: 06/03/19 10:50 Dose: 3 units Levothyroxine Sodium (Synthroid -) 62.5 mcg PO DAILY@0700 [facility] Last Admin: 06/03/19 06:28 Dose: 62.5 mcg Lidocaine (Lidoderm Patch -) 2 patch TP DAILY [facility] Last Admin: 06/03/19 10:47 Dose: 2 patch Metoprolol Succinate (Toprol Xl -) 25 mg PO DAILY [facility] Last Admin: 06/03/19 10:47 Dose: 25 mg Miscellaneous (Lidoderm Patch Removal) 1 each MC DAILY@2200 [facility] Last Admin: 06/02/19 22:22 Dose: 1 each Pantoprazole Sodium (Protonix Iv) 40 mg IVPUSH BID [facility] Last Admin: 06/03/19 10:47 Dose: 40 mg CBC, BMP 06/02/19 07:15 06/02/19 07:15 Physical Exam. Constitutional: Yes: No Distress, anxious , obese. Eyes: Yes: Conjunctiva Clear, Other (pale) Neck: Yes: Supple. no jvd . Cardiovascular: Yes: Regular Rate and Rhythm Respiratory: Yes: Diminished Gastrointestinal: Yes: Soft, non tender.bs + Edema: LLE: 1+, RLE: 1+-- chronic skin changes -- Psychiatric: Yes: Alert ASSESSMENT/PLAN: s/p egd. Pathology pending discussed will give one time dose of Oxy 5 mg continue present care monitor labs oob - chair physical therapy d/c tele- will follow A& D ointment for itching. Problem List - Problems (1) Anemia Code(s): D64.9 - ANEMIA, UNSPECIFIED Qualifiers: (2) Fever in adult Code(s): R50.9 - FEVER, UNSPECIFIED (3) History of fall Code(s): Z91.81 - HISTORY OF FALLING (4) Hyperlipemia Code(s): E78.5 - HYPERLIPIDEMIA, UNSPECIFIED (5) Uncontrolled diabetes mellitus Code(s): E11.65 - TYPE 2 DIABETES MELLITUS WITH HYPERGLYCEMIA (6) Urinary tract infection Code(s): N39.0 - URINARY TRACT INFECTION, SITE NOT SPECIFIED Qualifiers: (7) Acute renal failure superimposed on chronic kidney disease Code(s): N17.9 - ACUTE KIDNEY FAILURE, UNSPECIFIED; N18.9 - CHRONIC KIDNEY DISEASE, UNSPECIFIED
[2019-06-03] MEDS ORDERED: INSULIN (NOVOLOG) ASPART 100 UNITS/ML 10ML VIAL SQ ONE ×2 (18:11→19:21)
--- NOTE | 2019-06-03 19:58 | PN ---
Progress Note, Physician History of Present Illness: OOB IN CHAIR NO URINARY TRACT COMPLAINTS AFEBRILE - Current Medication List Current Medications: Active Medications Acetaminophen (Tylenol -) 650 mg PO Q6H PRN PRN Reason: PAIN Last Admin: 06/02/19 06:15 Dose: 650 mg Sodium Chloride (Normal Saline -) 1,000 mls @ 75 mls/hr IV ASDIR [facility] Last Admin: 06/02/19 03:45 Dose: 75 mls/hr Ceftriaxone Sodium 1 gm/ (Dextrose) 50 mls @ 100 mls/hr IVPB DAILY [facility]; Protocol Last Admin: 06/03/19 10:45 Dose: 100 mls/hr Insulin Aspart (Novolog Vial Sliding Scale -) 1 vial SQ TIDAC [facility]; Protocol Last Admin: 06/03/19 18:12 Dose: 6 units Insulin Detemir (Levemir Vial) 3 units SQ DAILY [facility] Last Admin: 06/03/19 10:50 Dose: 3 units Levothyroxine Sodium (Synthroid -) 62.5 mcg PO DAILY@0700 [facility] Last Admin: 06/03/19 06:28 Dose: 62.5 mcg Lidocaine (Lidoderm Patch -) 2 patch TP DAILY [facility] Last Admin: 06/03/19 10:47 Dose: 2 patch Metoprolol Succinate (Toprol Xl -) 25 mg PO DAILY [facility] Last Admin: 06/03/19 10:47 Dose: 25 mg Miscellaneous (Lidoderm Patch Removal) 1 each MC DAILY@2200 [facility] Last Admin: 06/02/19 22:22 Dose: 1 each Pantoprazole Sodium (Protonix Iv) 40 mg IVPUSH BID [facility] Last Admin: 06/03/19 10:47 Dose: 40 mg - Objective Vital Signs: Vital Signs Temperature 98.0 F 06/03/19 17:00 Pulse Rate 77 06/03/19 17:00 Respiratory Rate 20 06/03/19 17:00 Blood Pressure 136/73 06/03/19 17:00 O2 Sat by Pulse Oximetry (%) 100 06/03/19 09:00 Constitutional: Yes: No Distress Eyes: Yes: Conjunctiva Clear Cardiovascular: Yes: Regular Rate and Rhythm, S1, S2 Respiratory: Yes: CTA Bilaterally Gastrointestinal: Yes: Normal Bowel Sounds, Soft Labs: CBC, BMP 06/02/19 07:15 06/02/19 07:15 INR, PTT INR 1.03 (0.83-1.09) 05/30/19 19:55 Assessment/Plan RECURRENT UTI LACTIC ACIDOSIS RESOLVED THROMBOCYTOPENIA IMPROVED AZOTEMIA SUBSTITUTE PO ANTIBIOTIC AM
[2019-06-03] MEDS: LIDOCAINE PATCH REMOVAL MC SCH (23:09)
[2019-06-04] MEDS: INSULIN SLIDING SCALE (NOVOLOG) 1 VIAL SQ SCH ×3 (06:10→17:26)
[2019-06-04] MEDS: LEVOTHYROXINE NA 25 MCG TABLET (FP) PO SCH (06:13)
[2019-06-04] MEDS: SODIUM CHLORIDE 1,000 ML IV SCH (08:00)
[2019-06-04 08:56] LABS: BASO % 0.4 % (0-2.0); HEMATOCRIT 31.6 % (32.4-45.2); HEMOGLOBIN 10.7 GM/dL (10.7-15.3); LYMPH % 16.1 % (8-40); MCH 30.1 pg (25.7-33.7); MCHC 33.7 g/dl (32.0-36.0); MEAN CELL VOLUME 89.2 fl (80-96); MONO % 16.9 % (3.8-10.2); NEUT % 55.6 % (42.8-82.8); PLATELET COUNT 134 K/MM3 (134-434); RBC 3.55 M/mm3 (3.60-5.2); RDW 16.1 % (11.6-15.6); WHITE BLOOD COUNT 3.7 K/mm3 (4.0-10.0)
[2019-06-04 09:02] LABS: ALBUMIN 1.9 g/dl (3.4-5.0); BILIRUBIN,TOTAL 0.2 mg/dL (0.2-1); BLOOD UREA NITROGEN 46.5 mg/dL (7-18); CALCIUM 7.8 mg/dL (8.5-10.1); CREATININE 2.3 mg/dL (0.55-1.3); TOT PROT 5.1 g/dl (6.4-8.2)
--- NOTE | 2019-06-04 09:10 | PN ---
Progress Note (short form) - Note Progress Note: No Complaints On regular diet now Vital Signs Period Temp Pulse Resp BP Sys/Sibley Pulse Ox Last 24 Hr 97.5 F-98.3 F 72-78 18-20 113-136/63-77 100-100 PE: AOx3 Neck: supple, No JVD HEENT: EOMI Lungs: CTA CVS: S1S2 Abd: Benign Ext: No edema. Scab both legs coming off CMP Sodium 134 mmol/L (136-145) L 06/04/19 07:45 Potassium 4.0 mmol/L (3.5-5.1) 06/04/19 07:45 Chloride 105 mmol/L (98-107) 06/04/19 07:45 Carbon Dioxide 19 mmol/L (21-32) L 06/04/19 07:45 Anion Gap 10 MMOL/L (8-16) 06/04/19 07:45 BUN 46.5 mg/dL (7-18) H 06/04/19 07:45 Creatinine 2.3 mg/dL (0.55-1.3) H 06/04/19 07:45 Est GFR (CKD-EPI)AfAm 27.21 06/04/19 07:45 Est GFR (CKD-EPI)NonAf 23.48 06/04/19 07:45 POC Glucometer 91 UNITS (80-120) 06/04/19 05:46 Random Glucose 132 mg/dL (74-106) H 06/04/19 07:45 Hemoglobin A1c % 6.3 % (4.2-6.3) 06/01/19 05:40 Lactic Acid 1.3 mmol/L (0.4-2.0) 05/30/19 22:15 Calcium 7.8 mg/dL (8.5-10.1) L 06/04/19 07:45 Total Bilirubin 0.2 mg/dL (0.2-1) 06/04/19 07:45 AST 23 U/L (15-37) 06/04/19 07:45 ALT 13 U/L (13-61) 06/04/19 07:45 Alkaline Phosphatase 249 U/L (45-117) H 06/04/19 07:45 Creatine Kinase 188 U/L (26-192) 05/30/19 19:55 Creatine Kinase Index 1.1 % (0.0-5.0) 05/30/19 19:55 CK-MB (CK-2) 2.2 ng/mL (0.5-3.6) 05/30/19 19:55 Troponin I 0.37 ng/ml (0.00-0.05) H 05/30/19 19:55 Total Protein 5.1 g/dl (6.4-8.2) L 06/04/19 07:45 Albumin 1.9 g/dl (3.4-5.0) L 06/04/19 07:45 TSH 7.96 uIU/ml (0.358-3.74) H 05/30/19 19:55 Free T4 1.01 ng/dl (0.76-1.46) 05/30/19 19:55 Current Medications Generic Name Dose Route Start Last Admin Trade Name Freq PRN Reason Stop Dose Admin Acetaminophen 650 mg 05/31/19 03:12 06/02/19 06:15 Tylenol - PO 650 mg Q6H PRN Administration PAIN Sodium Chloride 1,000 mls @ 75 mls/hr 05/31/19 00:30 06/02/19 03:45 Normal Saline - IV 75 mls/hr ASDIR [facility] Administration Ceftriaxone Sodium 1 gm/ 50 mls @ 100 mls/hr 05/31/19 10:00 06/03/19 10:45 Dextrose IVPB 100 mls/hr DAILY [facility] Administration Protocol Insulin Aspart 1 vial 06/01/19 16:00 06/04/19 06:10 Novolog Vial Sliding Scale - SQ Not Given TIDAC [facility] Protocol Insulin Detemir 3 units 06/02/19 10:00 06/03/19 10:50 Levemir Vial SQ 3 units DAILY [facility] Administration Levothyroxine Sodium 62.5 mcg 06/02/19 07:00 06/04/19 06:13 Synthroid - PO 62.5 mcg DAILY@0700 [facility] Administration Lidocaine 2 patch 06/01/19 16:00 06/03/19 10:47 Lidoderm Patch - TP 2 patch DAILY [facility] Administration Metoprolol Succinate 25 mg 05/31/19 12:30 06/03/19 10:47 Toprol Xl - PO 25 mg DAILY [facility] Administration Miscellaneous 1 each 06/01/19 22:00 06/03/19 23:09 Lidoderm Patch Removal MC 1 each DAILY@2200 [facility] Administration Pantoprazole Sodium 40 mg 05/31/19 10:00 06/03/19 23:09 Protonix Iv IVPUSH 40 mg BID [facility] Administration AP GENESIS DM S/P Fall HypothyroidismTSH 7.96 HTN HLD Gastric polyp: EGD report noted. Monitor BGM QACHS and 3 AM Levemir 3 units daily in morning Novolog Ss coverage Will change Insulin dose as necessary depending upon the blood sugar readings today. LT4 62.5mcg QD Will F/U
[2019-06-04] MEDS: CEFTRIAXONE 1 GM in DEXTROSE 5%-WATER - 50 ML IVPB SCH (10:11)
[2019-06-04] MEDS: PANTOPRAZOLE SODIUM 40 MG VIAL IVPUSH SCH ×2 (10:11→22:40)
[2019-06-04] MEDS: metoPROLOL SUCCINATE 25 MG TAB.SR.24H (FP) PO SCH (10:11)
[2019-06-04] MEDS: LIDOCAINE 5% TOPICAL PATCH TP SCH (10:11)
[2019-06-04] MEDS: ACETAMINOPHEN 325 MG TABLET (FP) PO PRN ×2 (10:16→19:23)
[2019-06-04] MEDS: INSULIN (LEVEMIR) 100 UNITS/ML UNITS SQ SCH (10:34)
[2019-06-04] MEDS ORDERED: SODIUM CHLORIDE 1,000 ML IV SCH (12:02)
[2019-06-04 12:10] LABS: ANISOCYTOSIS 0; MACROCYTOSIS 0; PLATELET ESTIMATE DECREASED
--- NOTE | 2019-06-04 12:19 | PN ---
Progress Note (short form) - Note Progress Note: pt seen/ examined feels better back pain better requesting muscle relaxant no distress Vital Signs Temp 97.7 F 06/04/19 09:00 Pulse 75 06/04/19 09:00 Resp 18 06/04/19 09:00 BP 140/75 06/04/19 09:00 Pulse Ox 100 06/04/19 10:00 Intake & Output 06/03/19 06/04/19 06/04/19 23:59 11:59 23:59 Intake Total 200 470 Balance 200 470 Intake: IV 0 30 Normal Saline - 1,000 ml 0 0 @ 75 mls/hr IV ASDIR [facility] Rx#:[id number] Saline lock 30 Oral 200 200 Packed Cells 240 Other: Voiding Method Incontinent Toilet # Unmeasured Voids Void 2 Bowel Movement No No Active Medications Acetaminophen (Tylenol -) 650 mg PO Q6H PRN PRN Reason: PAIN Cefuroxime Axetil (Ceftin -) 250 mg PO BID [facility] Cyclobenzaprine HCl (Cyclobenzaprine Hcl) 5 mg PO BID PRN PRN Reason: BACK PAIN Sodium Chloride (Normal Saline -) 1,000 mls @ 75 mls/hr IV ASDIR [facility] Insulin Aspart (Novolog Vial Sliding Scale -) 1 vial SQ TIDAC [facility]; Protocol Last Admin: 06/04/19 06:10 Dose: Not Given Insulin Detemir (Levemir Vial) 3 units SQ DAILY [facility] Last Admin: 06/04/19 10:34 Dose: 3 units Levothyroxine Sodium (Synthroid -) 62.5 mcg PO DAILY@0700 [facility] Last Admin: 06/04/19 06:13 Dose: 62.5 mcg Lidocaine (Lidoderm Patch -) 2 patch TP DAILY [facility] Last Admin: 06/04/19 10:11 Dose: 2 patch Metoprolol Succinate (Toprol Xl -) 25 mg PO DAILY [facility] Miscellaneous (Lidoderm Patch Removal) 1 each MC DAILY@2200 [facility] Last Admin: 06/03/19 23:09 Dose: 1 each Pantoprazole Sodium (Protonix Iv) 40 mg IVPUSH BID [facility] CBC, BMP 06/04/19 07:45 06/04/19 07:45 Physical Exam. Constitutional: Yes: No Distress, , obese. comfortable Eyes: Yes: Conjunctiva Clear, Other (pale) Neck: Yes: Supple. no jvd . Cardiovascular: Yes: Regular Rate and Rhythm Respiratory: Yes: Diminished Gastrointestinal: Yes: Soft, non tender.bs + Edema: LLE: 1+, RLE: 1+-- chronic skin changes -- Psychiatric: Yes: Alert ASSESSMENT/PLAN: s/p egd. Pathology pending discussed with Dr. Guanaco Simon Await for Pathology continue present care monitor labs oob - chair physical therapy flexiril prn d/c tele- will follow Problem List - Problems (1) Anemia Code(s): D64.9 - ANEMIA, UNSPECIFIED Qualifiers: (2) Fever in adult Code(s): R50.9 - FEVER, UNSPECIFIED (3) History of fall Code(s): Z91.81 - HISTORY OF FALLING (4) Hyperlipemia Code(s): E78.5 - HYPERLIPIDEMIA, UNSPECIFIED (5) Uncontrolled diabetes mellitus Code(s): E11.65 - TYPE 2 DIABETES MELLITUS WITH HYPERGLYCEMIA (6) Urinary tract infection Code(s): N39.0 - URINARY TRACT INFECTION, SITE NOT SPECIFIED Qualifiers: (7) Acute renal failure superimposed on chronic kidney disease Code(s): N17.9 - ACUTE KIDNEY FAILURE, UNSPECIFIED; N18.9 - CHRONIC KIDNEY DISEASE, UNSPECIFIED
[2019-06-04] MEDS: CYCLOBENZAPRINE HCL 5 MG TABLET PO PRN ×2 (14:10→22:40)
[2019-06-04] MEDS: LIDOCAINE PATCH REMOVAL MC SCH (22:40)
[2019-06-04] MEDS: CEFUROXIME AXETIL 250 MG TABLET PO SCH (23:00)
[2019-06-05] MEDS: ACETAMINOPHEN 325 MG TABLET (FP) PO PRN ×2 (01:33→08:43)
[2019-06-05] MEDS: INSULIN SLIDING SCALE (NOVOLOG) 1 VIAL SQ SCH ×3 (06:02→16:55)
[2019-06-05] MEDS: LEVOTHYROXINE NA 25 MCG TABLET (FP) PO SCH (06:18)
[2019-06-05] MEDS ORDERED: oxyCODONE HCL 5 MG TABLET PO ONE (10:15)
[2019-06-05] MEDS: PANTOPRAZOLE SODIUM 40 MG VIAL IVPUSH SCH ×2 (10:44→21:07)
[2019-06-05] MEDS: metoPROLOL SUCCINATE 25 MG TAB.SR.24H (FP) PO SCH (10:44)
[2019-06-05] MEDS: LIDOCAINE 5% TOPICAL PATCH TP SCH (10:53)
[2019-06-05] MEDS: INSULIN (LEVEMIR) 100 UNITS/ML UNITS SQ SCH (10:53)
[2019-06-05] MEDS ORDERED: INSULIN (NOVOLOG) ASPART 100 UNITS/ML 10ML VIAL ONE (11:46)
[2019-06-05] MEDS: CEFUROXIME AXETIL 250 MG TABLET PO SCH ×2 (11:53→21:05)
--- NOTE | 2019-06-05 12:20 | PN ---
Progress Note (short form) - Note Progress Note: C/o shoulder pain Vital Signs Period Temp Pulse Resp BP Sys/Sibley Pulse Ox Last 24 Hr 97.6 F-98.7 F 73-89 16- 140-161/79-93 100-100 PE: AOx3 Neck: supple, No JVD HEENT: EOMI Lungs: CTA CVS: S1S2 Abd: Benign Ext: No edema. Scab both legs coming off CMP Sodium 134 mmol/L (136-145) L 06/04/19 07:45 Potassium 4.0 mmol/L (3.5-5.1) 06/04/19 07:45 Chloride 105 mmol/L (98-107) 06/04/19 07:45 Carbon Dioxide 19 mmol/L (21-32) L 06/04/19 07:45 Anion Gap 10 MMOL/L (8-16) 06/04/19 07:45 BUN 46.5 mg/dL (7-18) H 06/04/19 07:45 Creatinine 2.3 mg/dL (0.55-1.3) H 06/04/19 07:45 Est GFR (CKD-EPI)AfAm 27.21 06/04/19 07:45 Est GFR (CKD-EPI)NonAf 23.48 06/04/19 07:45 POC Glucometer 221 UNITS (80-120) 06/05/19 10:51 Random Glucose 132 mg/dL (74-106) H 06/04/19 07:45 Hemoglobin A1c % 6.3 % (4.2-6.3) 06/01/19 05:40 Lactic Acid 1.3 mmol/L (0.4-2.0) 05/30/19 22:15 Calcium 7.8 mg/dL (8.5-10.1) L 06/04/19 07:45 Total Bilirubin 0.2 mg/dL (0.2-1) 06/04/19 07:45 AST 23 U/L (15-37) 06/04/19 07:45 ALT 13 U/L (13-61) 06/04/19 07:45 Alkaline Phosphatase 249 U/L (45-117) H 06/04/19 07:45 Creatine Kinase 188 U/L (26-192) 05/30/19 19:55 Creatine Kinase Index 1.1 % (0.0-5.0) 05/30/19 19:55 CK-MB (CK-2) 2.2 ng/mL (0.5-3.6) 05/30/19 19:55 Troponin I 0.37 ng/ml (0.00-0.05) H 05/30/19 19:55 Total Protein 5.1 g/dl (6.4-8.2) L 06/04/19 07:45 Albumin 1.9 g/dl (3.4-5.0) L 06/04/19 07:45 TSH 7.96 uIU/ml (0.358-3.74) H 05/30/19 19:55 Free T4 1.01 ng/dl (0.76-1.46) 05/30/19 19:55 Current Medications Generic Name Dose Route Start Last Admin Trade Name Freq PRN Reason Stop Dose Admin Acetaminophen 650 mg 06/04/19 12:02 06/05/19 08:43 Tylenol - PO 650 mg Q6H PRN Administration PAIN Cefuroxime Axetil 250 mg 06/04/19 22:00 06/05/19 11:53 Ceftin - PO 250 mg BID [facility] Administration Cyclobenzaprine HCl 5 mg 06/04/19 12:14 06/04/19 22:40 Cyclobenzaprine Hcl PO 5 mg BID PRN Administration BACK PAIN Sodium Chloride 1,000 mls @ 75 mls/hr 06/04/19 12:02 06/04/19 13:51 Normal Saline - IV 75 mls/hr ASDIR [facility] Administration Insulin Aspart 1 vial 06/01/19 16:00 06/05/19 11:54 Novolog Vial Sliding Scale - SQ 3 units TIDAC [facility] Administration Protocol Insulin Detemir 3 units 06/02/19 10:00 06/05/19 10:53 Levemir Vial SQ 3 units DAILY [facility] Administration Levothyroxine Sodium 62.5 mcg 06/02/19 07:00 06/05/19 06:18 Synthroid - PO 62.5 mcg DAILY@0700 [facility] Administration Lidocaine 2 patch 06/01/19 16:00 06/05/19 10:53 Lidoderm Patch - TP Not Given DAILY [facility] Metoprolol Succinate 25 mg 06/05/19 10:00 06/05/19 10:44 Toprol Xl - PO 25 mg DAILY [facility] Administration Miscellaneous 1 each 06/01/19 22:00 06/04/19 22:40 Lidoderm Patch Removal MC 1 each DAILY@2200 TERES[facility] Administration Pantoprazole Sodium 40 mg 06/04/19 22:00 06/05/19 10:44 Protonix Iv IVPUSH 40 mg BID TERES[facility] Administration AP GENESIS DM S/P Fall HypothyroidismTSH 7.96 HTN HLD Gastric polyp: EGD report noted. Monitor BGM QACHS Levemir 3 units daily in morning Novolog Ss coverage Will change Insulin dose as necessary depending upon the blood sugar readings today. LT4 62.5mcg QD Will F/U
--- NOTE | 2019-06-05 12:47 | PN ---
Progress Note (short form) - Note Progress Note: lying in bed again complain of back pain no distress unable to give nsaid due to ckd Vital Signs Temp 97.8 F 06/05/19 06:00 Pulse 89 06/05/19 10:00 Resp 19 06/05/19 10:00 BP 161/93 06/05/19 10:00 Pulse Ox 100 06/04/19 22:00 Intake & Output 06/04/19 06/05/19 06/05/19 23:59 11:59 23:59 Intake Total 1994 1150 Balance 1994 1150 Weight 147 lb 12.8 oz Intake: IV 825 825 Normal Saline - 1,000 ml 825 825 @ 75 mls/hr IV ASDIR [facility] Rx#:[id number] Oral 1170 325 Other: Voiding Method Incontinent # Unmeasured Voids Void 2 2 Bowel Movement No No # Bowel Movements 1 Weight Measurement Method Patient Lift Scale Active Medications Acetaminophen (Tylenol -) 650 mg PO Q6H PRN PRN Reason: PAIN Last Admin: 06/05/19 08:43 Dose: 650 mg Cefuroxime Axetil (Ceftin -) 250 mg PO BID [facility] Last Admin: 06/05/19 11:53 Dose: 250 mg Cyclobenzaprine HCl (Cyclobenzaprine Hcl) 5 mg PO BID PRN PRN Reason: BACK PAIN Last Admin: 06/04/19 22:40 Dose: 5 mg Sodium Chloride (Normal Saline -) 1,000 mls @ 75 mls/hr IV ASDIR [facility] Last Admin: 06/04/19 13:51 Dose: 75 mls/hr Insulin Aspart (Novolog Vial Sliding Scale -) 1 vial SQ TIDAC [facility]; Protocol Last Admin: 06/05/19 11:54 Dose: 3 units Insulin Detemir (Levemir Vial) 3 units SQ DAILY [facility] Last Admin: 06/05/19 10:53 Dose: 3 units Levothyroxine Sodium (Synthroid -) 62.5 mcg PO DAILY@0700 [facility] Last Admin: 06/05/19 06:18 Dose: 62.5 mcg Lidocaine (Lidoderm Patch -) 2 patch TP DAILY [facility] Last Admin: 06/05/19 10:53 Dose: Not Given Metoprolol Succinate (Toprol Xl -) 25 mg PO DAILY [facility] Last Admin: 06/05/19 10:44 Dose: 25 mg Miscellaneous (Lidoderm Patch Removal) 1 each MC DAILY@2200 [facility] Last Admin: 06/04/19 22:40 Dose: 1 each Oxycodone HCl (Roxicodone -) 5 mg PO BID [facility] Pantoprazole Sodium (Protonix Iv) 40 mg IVPUSH BID [facility] Last Admin: 06/05/19 10:44 Dose: 40 mg CBC, BMP 06/04/19 07:45 06/04/19 07:45 Physical Exam. Constitutional: Yes: No Distress, , obese. comfortable Eyes: Yes: Conjunctiva Clear, Other (pale) Neck: Yes: Supple. no jvd . Cardiovascular: Yes: Regular Rate and Rhythm Respiratory: Yes: Diminished Gastrointestinal: Yes: Soft, non tender.bs + Edema: LLE: 1+, RLE: 1+-- chronic skin changes -- Psychiatric: Yes: Alert ASSESSMENT/PLAN: s/p egd. Pathology pending discussed with Dr. Guanaco Simon Await for Pathology continue present care abx-- po will give oxy - small dose 5 mg bid prn monitor labs oob - chair physical therapy flexiril prn will follow Problem List - Problems (1) Anemia Code(s): D64.9 - ANEMIA, UNSPECIFIED Qualifiers: (2) Fever in adult Code(s): R50.9 - FEVER, UNSPECIFIED (3) History of fall Code(s): Z91.81 - HISTORY OF FALLING (4) Hyperlipemia Code(s): E78.5 - HYPERLIPIDEMIA, UNSPECIFIED (5) Uncontrolled diabetes mellitus Code(s): E11.65 - TYPE 2 DIABETES MELLITUS WITH HYPERGLYCEMIA (6) Urinary tract infection Code(s): N39.0 - URINARY TRACT INFECTION, SITE NOT SPECIFIED Qualifiers: (7) Acute renal failure superimposed on chronic kidney disease Code(s): N17.9 - ACUTE KIDNEY FAILURE, UNSPECIFIED; N18.9 - CHRONIC KIDNEY DISEASE, UNSPECIFIED
[2019-06-05 13:13] LABS: BASO % 0.9 % (0-2.0); EOS % 9.4 % (0-4.5); HEMATOCRIT 33.7 % (32.4-45.2); HEMOGLOBIN 11.1 GM/dL (10.7-15.3); LYMPH % 19.6 % (8-40); MEAN CELL VOLUME 90.9 fl (80-96); MEAN PLT VOLUME 6.9 fl (7.5-11.1); MONO % 17.1 % (3.8-10.2); PLATELET COUNT 136 K/MM3 (134-434); RDW 16.9 % (11.6-15.6); WHITE BLOOD COUNT 3.2 K/mm3 (4.0-10.0)
[2019-06-05 13:45] LABS: BILIRUBIN,TOTAL 0.5 mg/dL (0.2-1); BLOOD UREA NITROGEN 42.2 mg/dL (7-18); CALCIUM 7.6 mg/dL (8.5-10.1); CREATININE 1.9 mg/dL (0.55-1.3); POTASSIUM 4.2 mmol/L (3.5-5.1); TOT PROT 5.2 g/dl (6.4-8.2)
[2019-06-05] MEDS: CYCLOBENZAPRINE HCL 5 MG TABLET PO PRN ×2 (13:48→21:07)
[2019-06-05 15:50] LABS: PLATELET ESTIMATE ADEQUATE
[2019-06-05] MEDS: oxyCODONE HCL 5 MG TABLET PO PRN (21:05)
[2019-06-05] MEDS: LIDOCAINE PATCH REMOVAL MC SCH (21:06)
[2019-06-06] MEDS: LEVOTHYROXINE NA 25 MCG TABLET (FP) PO SCH (06:44)
[2019-06-06] MEDS: INSULIN SLIDING SCALE (NOVOLOG) 1 VIAL SQ SCH ×3 (06:45→17:04)
[2019-06-06] MEDS ORDERED: PT OWN MED DRAWER 7, Y5N ONE (10:41)
[2019-06-06] MEDS: PANTOPRAZOLE SODIUM 40 MG VIAL IVPUSH SCH ×2 (10:44→21:28)
[2019-06-06] MEDS: CEFUROXIME AXETIL 250 MG TABLET PO SCH ×2 (10:44→21:29)
[2019-06-06] MEDS: INSULIN (LEVEMIR) 100 UNITS/ML UNITS SQ SCH (10:44)
[2019-06-06] MEDS: metoPROLOL SUCCINATE 25 MG TAB.SR.24H (FP) PO SCH (10:45)
[2019-06-06] MEDS: LIDOCAINE 5% TOPICAL PATCH TP SCH (10:51)
[2019-06-06] MEDS: CYCLOBENZAPRINE HCL 5 MG TABLET PO PRN ×2 (12:06→21:29)
[2019-06-06] MEDS: oxyCODONE HCL 5 MG TABLET PO PRN ×2 (12:10→21:28)
--- NOTE | 2019-06-06 13:09 | PN ---
Progress Note (short form) - Note Progress Note: C/O back pain Troponin neg yesterday Blood sugar acceptable on current Insulin regimen Vital Signs Period Temp Pulse Resp BP Sys/Sibley Pulse Ox Last 24 Hr 94.4 F-98.5 F 82-101 18-20 130-148/76-82 96 PE: AOx3 Neck: supple, No JVD HEENT: EOMI Lungs: CTA CVS: S1S2 Abd: Benign Ext: No edema. CMP Sodium 137 mmol/L (136-145) 06/05/19 12:15 Potassium 4.2 mmol/L (3.5-5.1) 06/05/19 12:15 Chloride 110 mmol/L (98-107) H 06/05/19 12:15 Carbon Dioxide 17 mmol/L (21-32) L 06/05/19 12:15 Anion Gap 11 MMOL/L (8-16) 06/05/19 12:15 BUN 42.2 mg/dL (7-18) H 06/05/19 12:15 Creatinine 1.9 mg/dL (0.55-1.3) H 06/05/19 12:15 Est GFR (CKD-EPI)AfAm 34.28 06/05/19 12:15 Est GFR (CKD-EPI)NonAf 29.58 06/05/19 12:15 POC Glucometer 195 UNITS (80-120) 06/06/19 12:13 Random Glucose 239 mg/dL (74-106) H 06/05/19 12:15 Hemoglobin A1c % 6.3 % (4.2-6.3) 06/01/19 05:40 Lactic Acid 1.3 mmol/L (0.4-2.0) 05/30/19 22:15 Calcium 7.6 mg/dL (8.5-10.1) L 06/05/19 12:15 Total Bilirubin 0.5 mg/dL (0.2-1) 06/05/19 12:15 AST 22 U/L (15-37) 06/05/19 12:15 ALT 13 U/L (13-61) 06/05/19 12:15 Alkaline Phosphatase 235 U/L (45-117) H 06/05/19 12:15 Creatine Kinase 188 U/L (26-192) 05/30/19 19:55 Creatine Kinase Index 1.1 % (0.0-5.0) 05/30/19 19:55 CK-MB (CK-2) 2.2 ng/mL (0.5-3.6) 05/30/19 19:55 Troponin I 0.04 ng/ml (0.00-0.05) 06/05/19 12:15 Total Protein 5.2 g/dl (6.4-8.2) L 06/05/19 12:15 Albumin 2.0 g/dl (3.4-5.0) L 06/05/19 12:15 TSH 7.96 uIU/ml (0.358-3.74) H 05/30/19 19:55 Free T4 1.01 ng/dl (0.76-1.46) 05/30/19 19:55 Current Medications Generic Name Dose Route Start Last Admin Trade Name Freq PRN Reason Stop Dose Admin Acetaminophen 650 mg 06/04/19 12:02 06/05/19 08:43 Tylenol - PO 650 mg Q6H PRN Administration PAIN Cefuroxime Axetil 250 mg 06/04/19 22:00 06/06/19 10:44 Ceftin - PO 250 mg BID [facility] Administration Cyclobenzaprine HCl 5 mg 06/04/19 12:14 06/06/19 12:06 Cyclobenzaprine Hcl PO 5 mg BID PRN Administration BACK PAIN Insulin Aspart 1 vial 06/01/19 16:00 06/06/19 12:16 Novolog Vial Sliding Scale - SQ 2 units TIDAC [facility] Administration Protocol Insulin Detemir 3 units 06/02/19 10:00 06/06/19 10:44 Levemir Vial SQ 3 units DAILY [facility] Administration Levothyroxine Sodium 62.5 mcg 06/02/19 07:00 06/06/19 06:44 Synthroid - PO 62.5 mcg DAILY@0700 [facility] Administration Lidocaine 2 patch 06/01/19 16:00 06/06/19 10:51 Lidoderm Patch - TP Not Given DAILY [facility] Metoprolol Succinate 25 mg 06/05/19 10:00 06/06/19 10:45 Toprol Xl - PO 25 mg DAILY [facility] Administration Miscellaneous 1 each 06/01/19 22:00 06/05/19 21:06 Lidoderm Patch Removal MC Not Given DAILY@2200 [facility] Oxycodone HCl 5 mg 06/05/19 22:00 06/06/19 12:10 Roxicodone - PO 5 mg BID PRN Administration PAIN LEVEL 6-10 Pantoprazole Sodium 40 mg 06/04/19 22:00 06/06/19 10:44 Protonix Iv IVPUSH 40 mg BID [facility] Administration AP GENESIS DM S/P Fall Hypothyroidism TSH 7.96 HTN HLD Gastric polyp: EGD report noted. Monitor BGM QACHS Levemir 3 units daily in morning Novolog Ss coverage Will change Insulin dose as necessary depending upon the blood sugar readings today. LT4 62.5mcg QD Will F/U
--- NOTE | 2019-06-06 13:45 | PN ---
Progress Note (short form) - Note Progress Note: Pt seen/ examined comfortable no new issues back pain much better denies cp Vital Signs Temp 94.4 F L 06/06/19 06:00 Pulse 82 06/06/19 06:00 Resp 20 06/06/19 06:00 BP 148/76 06/06/19 06:00 Pulse Ox 96 06/05/19 21:00 Intake & Output 06/05/19 06/06/19 06/06/19 23:59 11:59 23:59 Intake Total 620 200 Balance 620 200 Intake: Oral 620 200 Other: Voiding Method Incontinent # Unmeasured Voids Void 1 Bowel Movement No Active Medications Acetaminophen (Tylenol -) 650 mg PO Q6H PRN PRN Reason: PAIN Last Admin: 06/05/19 08:43 Dose: 650 mg Cefuroxime Axetil (Ceftin -) 250 mg PO BID [facility] Last Admin: 06/06/19 10:44 Dose: 250 mg Cyclobenzaprine HCl (Cyclobenzaprine Hcl) 5 mg PO BID PRN PRN Reason: BACK PAIN Last Admin: 06/06/19 12:06 Dose: 5 mg Insulin Aspart (Novolog Vial Sliding Scale -) 1 vial SQ TIDAC [facility]; Protocol Last Admin: 06/06/19 12:16 Dose: 2 units Insulin Detemir (Levemir Vial) 3 units SQ DAILY [facility] Last Admin: 06/06/19 10:44 Dose: 3 units Levothyroxine Sodium (Synthroid -) 62.5 mcg PO DAILY@0700 [facility] Last Admin: 06/06/19 06:44 Dose: 62.5 mcg Lidocaine (Lidoderm Patch -) 2 patch TP DAILY [facility] Last Admin: 06/06/19 10:51 Dose: Not Given Metoprolol Succinate (Toprol Xl -) 25 mg PO DAILY [facility] Last Admin: 06/06/19 10:45 Dose: 25 mg Miscellaneous (Lidoderm Patch Removal) 1 each MC DAILY@2200 [facility] Last Admin: 06/05/19 21:06 Dose: Not Given Oxycodone HCl (Roxicodone -) 5 mg PO BID PRN PRN Reason: PAIN LEVEL 6-10 Last Admin: 06/06/19 12:10 Dose: 5 mg Pantoprazole Sodium (Protonix Iv) 40 mg IVPUSH BID [facility] Last Admin: 06/06/19 10:44 Dose: 40 mg CBC, BMP 06/05/19 12:15 06/05/19 12:15 CBC,CMP WBC 3.2 K/mm3 (4.0-10.0) L 06/05/19 12:15 RBC 3.70 M/mm3 (3.60-5.2) 06/05/19 12:15 Hgb 11.1 GM/dL (10.7-15.3) 06/05/19 12:15 Hct 33.7 % (32.4-45.2) 06/05/19 12:15 MCV 90.9 fl (80-96) 06/05/19 12:15 MCH 30.0 pg (25.7-33.7) 06/05/19 12:15 MCHC 33.0 g/dl (32.0-36.0) 06/05/19 12:15 RDW 16.9 % (11.6-15.6) H 06/05/19 12:15 Plt Count 136 K/MM3 (134-434) 06/05/19 12:15 MPV 6.9 fl (7.5-11.1) L 06/05/19 12:15 Absolute Neuts (auto) 1.7 K/mm3 (1.5-8.0) 06/05/19 12:15 Total Counted 100 06/05/19 12:15 Neutrophils % 53.0 % (42.8-82.8) 06/05/19 12:15 Neutrophils % (Manual) 64.0 % (42.8-82.8) 06/05/19 12:15 Band Neutrophils % 2.0 % 06/05/19 12:15 Lymphocytes % 19.6 % (8-40) D 06/05/19 12:15 Lymphocytes % (Manual) 20.0 % (8-40) 06/05/19 12:15 Monocytes % 17.1 % (3.8-10.2) H 06/05/19 12:15 Monocytes % (Manual) 9 % (3.8-10.2) 06/05/19 12:15 Eosinophils % 9.4 % (0-4.5) H 06/05/19 12:15 Eosinophils % (Manual) 5.0 % (0-4.5) H 06/05/19 12:15 Basophils % 0.9 % (0-2.0) 06/05/19 12:15 Basophils % (Manual) 0.0 % (0-2.0) 06/04/19 07:45 Myelocytes % (Man) 0 % (0-2) 06/04/19 07:45 Promyelocytes % (Man) 0 % (0-2) 06/04/19 07:45 Blast Cells % (Manual) 0 % (0-0) 06/04/19 07:45 Nucleated RBC % 0 % (0-0) 06/05/19 12:15 Metamyelocytes 1 % (0-2) 06/04/19 07:45 Hypochromia 0 06/04/19 07:45 Platelet Estimate Adequate 06/05/19 12:15 Platelet Comment No clumping noted 05/30/19 19:55 Polychromasia 0 06/04/19 07:45 Poikilocytosis 0 06/04/19 07:45 Anisocytosis 0 06/04/19 07:45 Microcytosis 0 06/04/19 07:45 Macrocytosis 0 06/04/19 07:45 Ovalocytes 1+ 06/01/19 05:40 Sodium 137 mmol/L (136-145) 06/05/19 12:15 Potassium 4.2 mmol/L (3.5-5.1) 06/05/19 12:15 Chloride 110 mmol/L (98-107) H 06/05/19 12:15 Carbon Dioxide 17 mmol/L (21-32) L 06/05/19 12:15 Anion Gap 11 MMOL/L (8-16) 06/05/19 12:15 BUN 42.2 mg/dL (7-18) H 06/05/19 12:15 Creatinine 1.9 mg/dL (0.55-1.3) H 06/05/19 12:15 Est GFR (CKD-EPI)AfAm 34.28 06/05/19 12:15 Est GFR (CKD-EPI)NonAf 29.58 06/05/19 12:15 POC Glucometer 195 UNITS (80-120) 06/06/19 12:13 Random Glucose 239 mg/dL (74-106) H 06/05/19 12:15 Hemoglobin A1c % 6.3 % (4.2-6.3) 06/01/19 05:40 Lactic Acid 1.3 mmol/L (0.4-2.0) 05/30/19 22:15 Calcium 7.6 mg/dL (8.5-10.1) L 06/05/19 12:15 Total Bilirubin 0.5 mg/dL (0.2-1) 06/05/19 12:15 AST 22 U/L (15-37) 06/05/19 12:15 ALT 13 U/L (13-61) 06/05/19 12:15 Alkaline Phosphatase 235 U/L (45-117) H 06/05/19 12:15 Creatine Kinase 188 U/L (26-192) 05/30/19 19:55 Creatine Kinase Index 1.1 % (0.0-5.0) 05/30/19 19:55 CK-MB (CK-2) 2.2 ng/mL (0.5-3.6) 05/30/19 19:55 Troponin I 0.04 ng/ml (0.00-0.05) 06/05/19 12:15 Total Protein 5.2 g/dl (6.4-8.2) L 06/05/19 12:15 Albumin 2.0 g/dl (3.4-5.0) L 06/05/19 12:15 TSH 7.96 uIU/ml (0.358-3.74) H 05/30/19 19:55 Free T4 1.01 ng/dl (0.76-1.46) 05/30/19 19:55 Physical Exam. Constitutional: Yes: No Distress, , obese. comfortable Eyes: Yes: Conjunctiva Clear, Other (pale) Neck: Yes: Supple. no jvd . Cardiovascular: Yes: Regular Rate and Rhythm Respiratory: Yes: Diminished Gastrointestinal: Yes: Soft, non tender.bs + Edema: LLE: 1+, RLE: 1+-- chronic skin changes -- Psychiatric: Yes: Alert ASSESSMENT/PLAN: s/p egd. Pathology pending Await for Pathology continue present care abx-- po monitor labs oob - chair physical therapy flexiril prn will follow d/c planning- Anticipate tomorrow after pathology report. Discussed with pt Problem List - Problems (1) Anemia Code(s): D64.9 - ANEMIA, UNSPECIFIED Qualifiers: (2) Fever in adult Code(s): R50.9 - FEVER, UNSPECIFIED (3) History of fall Code(s): Z91.81 - HISTORY OF FALLING (4) Hyperlipemia Code(s): E78.5 - HYPERLIPIDEMIA, UNSPECIFIED (5) Uncontrolled diabetes mellitus Code(s): E11.65 - TYPE 2 DIABETES MELLITUS WITH HYPERGLYCEMIA (6) Urinary tract infection Code(s): N39.0 - URINARY TRACT INFECTION, SITE NOT SPECIFIED Qualifiers: (7) Acute renal failure superimposed on chronic kidney disease Code(s): N17.9 - ACUTE KIDNEY FAILURE, UNSPECIFIED; N18.9 - CHRONIC KIDNEY DISEASE, UNSPECIFIED Problem List - Problems (1) Anemia Code(s): D64.9 - ANEMIA, UNSPECIFIED Qualifiers: (2) Fever in adult Code(s): R50.9 - FEVER, UNSPECIFIED (3) History of fall Code(s): Z91.81 - HISTORY OF FALLING (4) Hyperlipemia Code(s): E78.5 - HYPERLIPIDEMIA, UNSPECIFIED (5) Uncontrolled diabetes mellitus Code(s): E11.65 - TYPE 2 DIABETES MELLITUS WITH HYPERGLYCEMIA (6) Urinary tract infection Code(s): N39.0 - URINARY TRACT INFECTION, SITE NOT SPECIFIED Qualifiers: (7) Acute renal failure superimposed on chronic kidney disease Code(s): N17.9 - ACUTE KIDNEY FAILURE, UNSPECIFIED; N18.9 - CHRONIC KIDNEY DISEASE, UNSPECIFIED
[2019-06-06] MEDS: ACETAMINOPHEN 325 MG TABLET (FP) PO PRN (17:42)
[2019-06-06] MEDS: guaiFENesin/D-METHORPHAN HB 10 ML UNIT-DOSE CUPS PO PRN (21:28)
[2019-06-06] MEDS: LIDOCAINE PATCH REMOVAL MC SCH (21:29)
[2019-06-07] MEDS: ACETAMINOPHEN 325 MG TABLET (FP) PO PRN ×2 (03:11→17:04)
[2019-06-07] MEDS: LEVOTHYROXINE NA 25 MCG TABLET (FP) PO SCH (06:50)
[2019-06-07] MEDS: INSULIN SLIDING SCALE (NOVOLOG) 1 VIAL SQ SCH ×3 (06:51→16:53)
[2019-06-07] MEDS ORDERED: PT OWN MED DRAWER 7, Y5N ONE ×4 (09:26→23:02)
[2019-06-07] MEDS: CEFUROXIME AXETIL 250 MG TABLET PO SCH ×2 (09:27→22:17)
[2019-06-07] MEDS: INSULIN (LEVEMIR) 100 UNITS/ML UNITS SQ SCH (09:27)
[2019-06-07] MEDS: metoPROLOL SUCCINATE 25 MG TAB.SR.24H (FP) PO SCH (09:27)
[2019-06-07] MEDS: PANTOPRAZOLE SODIUM 40 MG VIAL IVPUSH SCH ×2 (09:27→22:25)
[2019-06-07] MEDS: LIDOCAINE 5% TOPICAL PATCH TP SCH (09:28)
--- NOTE | 2019-06-07 09:47 | PN ---
Progress Note (short form) - Note Progress Note: pt seen/ examined awake/ comfortable Vital Signs Temp 97.9 F 06/07/19 09:22 Pulse 93 H 06/07/19 09:22 Resp 20 06/07/19 09:22 BP 130/76 06/07/19 09:22 Pulse Ox 96 06/06/19 21:00 Intake & Output 06/06/19 06/06/19 06/07/19 11:59 23:59 11:59 Intake Total 200 550 200 Balance 200 550 200 Weight 149 lb 12.8 oz Intake: Oral 200 550 200 Other: Voiding Method Incontinent Incontinent # Unmeasured Voids Void 2 1 Bowel Movement Yes # Bowel Movements 1 Weight Measurement Method Patient Lift Scale Active Medications Acetaminophen (Tylenol -) 650 mg PO Q6H PRN PRN Reason: PAIN Last Admin: 06/07/19 03:11 Dose: 650 mg Cefuroxime Axetil (Ceftin -) 250 mg PO BID [facility] Last Admin: 06/07/19 09:27 Dose: 250 mg Cyclobenzaprine HCl (Cyclobenzaprine Hcl) 5 mg PO BID PRN PRN Reason: BACK PAIN Last Admin: 06/06/19 21:29 Dose: 5 mg Guaifenesin (Robitussin Dm -) 10 ml PO Q6H PRN PRN Reason: COUGH Last Admin: 06/06/19 21:28 Dose: 10 ml Insulin Aspart (Novolog Vial Sliding Scale -) 1 vial SQ TIDAC [facility]; Protocol Last Admin: 06/07/19 06:51 Dose: 3 units Insulin Detemir (Levemir Vial) 3 units SQ DAILY [facility] Last Admin: 06/07/19 09:27 Dose: 3 units Levothyroxine Sodium (Synthroid -) 62.5 mcg PO DAILY@0700 [facility] Last Admin: 06/07/19 06:50 Dose: 62.5 mcg Lidocaine (Lidoderm Patch -) 2 patch TP DAILY [facility] Last Admin: 06/07/19 09:28 Dose: Not Given Metoprolol Succinate (Toprol Xl -) 25 mg PO DAILY [facility] Last Admin: 06/07/19 09:27 Dose: 25 mg Miscellaneous (Lidoderm Patch Removal) 1 each MC DAILY@2200 [facility] Last Admin: 06/06/19 21:29 Dose: Not Given Oxycodone HCl (Roxicodone -) 5 mg PO BID PRN PRN Reason: PAIN LEVEL 6-10 Last Admin: 06/06/19 21:28 Dose: 5 mg Pantoprazole Sodium (Protonix Iv) 40 mg IVPUSH BID [facility] Last Admin: 06/07/19 09:27 Dose: 40 mg CBC, BMP 06/05/19 12:15 06/05/19 12:15 Physical Exam. Constitutional: Yes: No Distress, , obese. comfortable. Eyes: Yes: Conjunctiva Clear, Other (pale) Neck: Yes: Supple. no jvd . Cardiovascular: Yes: Regular Rate and Rhythm Respiratory: Yes: Diminished Gastrointestinal: Yes: Soft, non tender.bs + Edema: LLE: 1+, RLE: 1+-- chronic skin changes -- Psychiatric: Yes: Alert ASSESSMENT/PLAN: s/p egd. Pathology pending Await for Pathology continue present care abx-- po monitor labs oob - chair physical therapy flexiril prn will follow d/c planning-AWAITING PATHOLOGY AND GI F/U Discussed with pt Problem List - Problems (1) Anemia Code(s): D64.9 - ANEMIA, UNSPECIFIED Qualifiers: (2) Fever in adult Code(s): R50.9 - FEVER, UNSPECIFIED (3) History of fall Code(s): Z91.81 - HISTORY OF FALLING (4) Hyperlipemia Code(s): E78.5 - HYPERLIPIDEMIA, UNSPECIFIED (5) Uncontrolled diabetes mellitus Code(s): E11.65 - TYPE 2 DIABETES MELLITUS WITH HYPERGLYCEMIA (6) Urinary tract infection Code(s): N39.0 - URINARY TRACT INFECTION, SITE NOT SPECIFIED Qualifiers: (7) Acute renal failure superimposed on chronic kidney disease Code(s): N17.9 - ACUTE KIDNEY FAILURE, UNSPECIFIED; N18.9 - CHRONIC KIDNEY DISEASE, UNSPECIFIED
[2019-06-07] MEDS: CYCLOBENZAPRINE HCL 5 MG TABLET PO PRN ×2 (10:24→22:23)
[2019-06-07] MEDS: oxyCODONE HCL 5 MG TABLET PO PRN ×2 (10:24→22:16)
--- NOTE | 2019-06-07 11:29 | PN ---
Progress Note (short form) - Note Progress Note: Denies any complaints Vital Signs Period Temp Pulse Resp BP Sys/Sibley Pulse Ox Last 24 Hr 97.6 F-98.0 F 61-93 18-20 119-152/68-94 96 PE: AOx3 Neck: supple, No JVD HEENT: EOMI Lungs: CTA CVS: S1S2 Abd: Benign Ext: No edema. CMP Sodium 137 mmol/L (136-145) 06/05/19 12:15 Potassium 4.2 mmol/L (3.5-5.1) 06/05/19 12:15 Chloride 110 mmol/L (98-107) H 06/05/19 12:15 Carbon Dioxide 17 mmol/L (21-32) L 06/05/19 12:15 Anion Gap 11 MMOL/L (8-16) 06/05/19 12:15 BUN 42.2 mg/dL (7-18) H 06/05/19 12:15 Creatinine 1.9 mg/dL (0.55-1.3) H 06/05/19 12:15 Est GFR (CKD-EPI)AfAm 34.28 06/05/19 12:15 Est GFR (CKD-EPI)NonAf 29.58 06/05/19 12:15 POC Glucometer 232 UNITS (80-120) 06/07/19 06:34 Random Glucose 239 mg/dL (74-106) H 06/05/19 12:15 Hemoglobin A1c % 6.3 % (4.2-6.3) 06/01/19 05:40 Lactic Acid 1.3 mmol/L (0.4-2.0) 05/30/19 22:15 Calcium 7.6 mg/dL (8.5-10.1) L 06/05/19 12:15 Total Bilirubin 0.5 mg/dL (0.2-1) 06/05/19 12:15 AST 22 U/L (15-37) 06/05/19 12:15 ALT 13 U/L (13-61) 06/05/19 12:15 Alkaline Phosphatase 235 U/L (45-117) H 06/05/19 12:15 Creatine Kinase 188 U/L (26-192) 05/30/19 19:55 Creatine Kinase Index 1.1 % (0.0-5.0) 05/30/19 19:55 CK-MB (CK-2) 2.2 ng/mL (0.5-3.6) 05/30/19 19:55 Troponin I 0.04 ng/ml (0.00-0.05) 06/05/19 12:15 Total Protein 5.2 g/dl (6.4-8.2) L 06/05/19 12:15 Albumin 2.0 g/dl (3.4-5.0) L 06/05/19 12:15 TSH 7.96 uIU/ml (0.358-3.74) H 05/30/19 19:55 Free T4 1.01 ng/dl (0.76-1.46) 05/30/19 19:55 Current Medications Generic Name Dose Route Start Last Admin Trade Name Freq PRN Reason Stop Dose Admin Acetaminophen 650 mg 06/04/19 12:02 06/07/19 03:11 Tylenol - PO 650 mg Q6H PRN Administration PAIN Cefuroxime Axetil 250 mg 06/04/19 22:00 06/07/19 09:27 Ceftin - PO 250 mg BID [facility] Administration Cyclobenzaprine HCl 5 mg 06/04/19 12:14 06/07/19 10:24 Cyclobenzaprine Hcl PO 5 mg BID PRN Administration BACK PAIN Guaifenesin 10 ml 06/06/19 21:11 06/06/19 21:28 Robitussin Dm - PO 10 ml Q6H PRN Administration COUGH Insulin Aspart 1 vial 06/01/19 16:00 06/07/19 06:51 Novolog Vial Sliding Scale - SQ 3 units TIDAC [facility] Administration Protocol Insulin Detemir 3 units 06/02/19 10:00 06/07/19 09:27 Levemir Vial SQ 3 units DAILY [facility] Administration Levothyroxine Sodium 62.5 mcg 06/02/19 07:00 06/07/19 06:50 Synthroid - PO 62.5 mcg DAILY@0700 [facility] Administration Lidocaine 2 patch 06/01/19 16:00 06/07/19 09:28 Lidoderm Patch - TP Not Given DAILY [facility] Metoprolol Succinate 25 mg 06/05/19 10:00 06/07/19 09:27 Toprol Xl - PO 25 mg DAILY [facility] Administration Miscellaneous 1 each 06/01/19 22:00 06/06/19 21:29 Lidoderm Patch Removal MC Not Given DAILY@2200 [facility] Oxycodone HCl 5 mg 06/05/19 22:00 06/07/19 10:24 Roxicodone - PO 5 mg BID PRN Administration PAIN LEVEL 6-10 Pantoprazole Sodium 40 mg 06/04/19 22:00 06/07/19 09:27 Protonix Iv IVPUSH 40 mg BID [facility] Administration AP GENESIS DM S/P Fall Hypothyroidism TSH 7.96 HTN HLD Gastric polyp: EGD report noted. Monitor BGM QACHS Levemir 3 units daily in morning Novolog Ss coverage Change Insulin dose as necessary depending upon the blood sugar readings. Pt may go home on current Insulin regimen. LT4 62.5mcg QD Will F/U
[2019-06-07] MEDS ORDERED: INSULIN (NOVOLOG) ASPART 100 UNITS/ML 10ML VIAL ONE (12:45)
[2019-06-07 14:38] VITALS: BMI 30.1
--- NOTE | 2019-06-07 15:32 | PATH ---
Surgical Pathology Report Patient Name: CATHRYN KHAN [facility]. Rec. #: [id number] /Age/Gender: 1965 (Age: 53) / F Account: [id number] Location: [address] [place] [address]/[facility] Taken: 06/02/2019 Received: 06/02/2019 Reported: 06/07/2019 Physicians: Caitlyn Mcelroy MD Specimen(s) Received A: ANTRAL POLYP B: STOMACH C: ESOPHAGEAL ULCER Clinical History Anemia Postoperative diagnosis: Esophagitis, antral polyp Final Diagnosis A. STOMACH, ANTRAL POLYP, BIOPSY: POLYPOID GASTRIC ANTRAL MUCOSA WITH MILD CHRONIC GASTRITIS. IMMUNOHISTOCHEMICAL STAIN FOR H. PYLORI IS NEGATIVE. B. STOMACH, MUCOSAL, BIOPSY: GASTRIC BODY MUCOSA WITH MILD CHRONIC GASTRITIS. IMMUNOHISTOCHEMICAL STAIN FOR H. PYLORI IS NEGATIVE. C. ESOPHAGEAL ULCER, BIOPSY: SQUAMOCOLUMNAR MUCOSA WITH MILD CHRONIC INFLAMMATION, MILD REFLUX TYPE CHANGES, AND FOCAL ACUTE ESOPHAGITIS WITH ASSOCIATED ULCERATION. NO INTESTINAL METAPLASIA OR DYSPLASIA IDENTIFIED. PAS FUNGAL STAIN IS NEGATIVESEE COMMENT. Comment: CMV and HSV stains are pending and will be reported separately. Electronically Signed Herlinda Menjivar M.D. Gross Description A. Received in formalin, labeled "biopsy antral polyp" are 5 vargas, irregular portions of soft tissue ranging from 0.3-0.4 cm. in greatest dimension. The specimens are submitted in toto in one cassette. B. Received in formalin, labeled "biopsy stomach" are 2 vargas, irregular portions of soft tissue measuring 0.2 and 0.4 cm. in greatest dimension. The specimens are submitted in toto in one cassette. C. Received in formalin, labeled "biopsy esophageal ulcer" are 4 vargas, irregular portions of soft tissue ranging from 0.2-0.3 cm. in greatest dimension. The specimens are submitted in toto in one cassette. DL/06/02/2019 saudi06/02/2019
[2019-06-07] MEDS ORDERED: DEXTROSE 50%-WATER - 25 GM/50 ML VIAL IVPUSH ONE (15:56)
[2019-06-07] MEDS ORDERED: DEXTROSE 50%-WATER 25 GM/50 ML DISP.SYRIN ONE (15:58)
--- NOTE | 2019-06-07 15:59 | HOSP ---
Subjective - Review of Symptoms Events since last encounter: Paged by nurse. Patient reported feeling "off" and asked for her blood sugar to be checked. BGM was noted to be 22. [place] juice and ensure was offered to the patient. Repeat BGM 32 . Iv D50 25gm ordered. Dr. Oswald made aware. Physical Examination Vital Signs: Vital Signs Temperature 98.4 F 06/07/19 14:44 Pulse Rate 68 06/07/19 14:44 Respiratory Rate 20 06/07/19 14:44 Blood Pressure 133/70 06/07/19 14:44 O2 Sat by Pulse Oximetry (%) 96 06/06/19 21:00 Labs: CBC, BMP 06/05/19 12:15 06/05/19 12:15 Visit type - Emergency Visit Emergency Visit: Yes ED Registration Date: 05/30/19 Care time: The patient presented to the Emergency Department on the above date and was hospitalized for further evaluation of their emergent condition. - New Patient This patient is new to me today: Yes Date on this admission: 06/07/19 - Critical Care Critical Care patient: No
[2019-06-07] MEDS: LIDOCAINE PATCH REMOVAL MC SCH (22:18)
[2019-06-07] MEDS: guaiFENesin/D-METHORPHAN HB 10 ML UNIT-DOSE CUPS PO PRN (22:23)
[2019-06-08] MEDS: ACETAMINOPHEN 325 MG TABLET (FP) PO PRN ×2 (03:20→15:31)
[2019-06-08] MEDS: INSULIN SLIDING SCALE (NOVOLOG) 1 VIAL SQ SCH ×3 (06:21→18:00)
[2019-06-08] MEDS: LEVOTHYROXINE NA 25 MCG TABLET (FP) PO SCH (06:22)
[2019-06-08] MEDS ORDERED: INSULIN (NOVOLOG) ASPART 100 UNITS/ML 10ML VIAL ONE (10:54)
[2019-06-08] MEDS: CYCLOBENZAPRINE HCL 5 MG TABLET PO PRN ×2 (11:01→21:56)
[2019-06-08] MEDS: oxyCODONE HCL 5 MG TABLET PO PRN ×2 (11:01→21:53)
[2019-06-08] MEDS: metoPROLOL SUCCINATE 25 MG TAB.SR.24H (FP) PO SCH (11:02)
[2019-06-08] MEDS: PANTOPRAZOLE SODIUM 40 MG VIAL IVPUSH SCH ×2 (11:02→21:56)
[2019-06-08] MEDS: CEFUROXIME AXETIL 250 MG TABLET PO SCH ×2 (11:02→21:56)
[2019-06-08] MEDS: INSULIN (LEVEMIR) 100 UNITS/ML UNITS SQ SCH (11:15)
[2019-06-08] MEDS: LIDOCAINE 5% TOPICAL PATCH TP SCH (11:16)
--- NOTE | 2019-06-08 14:30 | PN ---
Progress Note (short form) - Note Progress Note: Denies any new complaints Back pain off and on Had episode of hypoglycemia yesterday after lunch Vital Signs Period Temp Pulse Resp BP Sys/Sibley Pulse Ox Last 24 Hr 97.7 F-98.4 F 68-82 19-24 125-150/67-89 97-97 PE: AOx3 Neck: supple, No JVD HEENT: EOMI Lungs: CTA CVS: S1S2 Abd: Benign Ext: No edema. CMP Sodium 137 mmol/L (136-145) 06/05/19 12:15 Potassium 4.2 mmol/L (3.5-5.1) 06/05/19 12:15 Chloride 110 mmol/L (98-107) H 06/05/19 12:15 Carbon Dioxide 17 mmol/L (21-32) L 06/05/19 12:15 Anion Gap 11 MMOL/L (8-16) 06/05/19 12:15 BUN 42.2 mg/dL (7-18) H 06/05/19 12:15 Creatinine 1.9 mg/dL (0.55-1.3) H 06/05/19 12:15 Est GFR (CKD-EPI)AfAm 34.28 06/05/19 12:15 Est GFR (CKD-EPI)NonAf 29.58 06/05/19 12:15 POC Glucometer 178 UNITS (80-120) 06/08/19 11:14 Random Glucose 239 mg/dL (74-106) H 06/05/19 12:15 Hemoglobin A1c % 6.3 % (4.2-6.3) 06/01/19 05:40 Lactic Acid 1.3 mmol/L (0.4-2.0) 05/30/19 22:15 Calcium 7.6 mg/dL (8.5-10.1) L 06/05/19 12:15 Total Bilirubin 0.5 mg/dL (0.2-1) 06/05/19 12:15 AST 22 U/L (15-37) 06/05/19 12:15 ALT 13 U/L (13-61) 06/05/19 12:15 Alkaline Phosphatase 235 U/L (45-117) H 06/05/19 12:15 Creatine Kinase 188 U/L (26-192) 05/30/19 19:55 Creatine Kinase Index 1.1 % (0.0-5.0) 05/30/19 19:55 CK-MB (CK-2) 2.2 ng/mL (0.5-3.6) 05/30/19 19:55 Troponin I 0.04 ng/ml (0.00-0.05) 06/05/19 12:15 Total Protein 5.2 g/dl (6.4-8.2) L 06/05/19 12:15 Albumin 2.0 g/dl (3.4-5.0) L 06/05/19 12:15 TSH 7.96 uIU/ml (0.358-3.74) H 05/30/19 19:55 Free T4 1.01 ng/dl (0.76-1.46) 05/30/19 19:55 Current Medications Generic Name Dose Route Start Last Admin Trade Name Freq PRN Reason Stop Dose Admin Acetaminophen 650 mg 06/04/19 12:02 06/08/19 03:20 Tylenol - PO 650 mg Q6H PRN Administration PAIN Cefuroxime Axetil 250 mg 06/04/19 22:00 06/08/19 11:02 Ceftin - PO 250 mg BID TERESITA Administration Cyclobenzaprine HCl 5 mg 06/04/19 12:14 06/08/19 11:01 Cyclobenzaprine Hcl PO 5 mg BID PRN Administration BACK PAIN Guaifenesin 10 ml 06/06/19 21:11 06/07/19 22:23 Robitussin Dm - PO 10 ml Q6H PRN Administration COUGH Insulin Aspart 1 vial 06/01/19 16:00 06/08/19 11:15 Novolog Vial Sliding Scale - SQ 2 units TIDAC TERESITA Administration Protocol Insulin Detemir 3 units 06/02/19 10:00 06/08/19 11:15 Levemir Vial SQ 3 units DAILY TERESITA Administration Levothyroxine Sodium 62.5 mcg 06/02/19 07:00 06/08/19 06:22 Synthroid - PO 62.5 mcg DAILY@0700 TERESITA Administration Lidocaine 2 patch 06/01/19 16:00 06/08/19 11:16 Lidoderm Patch - TP Not Given DAILY [facility] Metoprolol Succinate 25 mg 06/05/19 10:00 06/08/19 11:02 Toprol Xl - PO 25 mg DAILY TERESITA Administration Miscellaneous 1 each 06/01/19 22:00 06/07/19 22:18 Lidoderm Patch Removal MC 1 each DAILY@2200 TERESITA Administration Oxycodone HCl 5 mg 06/05/19 22:00 06/08/19 11:01 Roxicodone - PO 5 mg BID PRN Administration PAIN LEVEL 6-10 Pantoprazole Sodium 40 mg 06/04/19 22:00 06/08/19 11:02 Protonix Iv IVPUSH 40 mg BID TERESITA Administration AP Episode of hypoglycemia post lunch: Cause unclear. Pt had a good lunch GENESIS DM S/P Fall Hypothyroidism TSH 7.96 HTN HLD Gastric polyp: EGD report noted. Monitor BGM QACHS Levemir 3 units daily in morning Novolog Ss coverage Change Insulin dose as necessary depending upon the blood sugar readings. Pt may go home on current Insulin regimen. LT4 62.5mcg QD Will F/U
--- NOTE | 2019-06-08 16:17 | PN ---
Progress Note (short form) - Note Progress Note: Had D/W Ms. Dixon re: path findings. No malignancy noted on biopsies. H. pylori negative. Can have outpatient EUS arranged for completion of evaluation of the antral lesion. I told Ms. Dixon to call to f/u in office and I gave her my office card. Problem List - Problems (1) Occult GI bleeding Code(s): R19.5 - OTHER FECAL ABNORMALITIES
--- NOTE | 2019-06-08 17:06 | PN ---
Progress Note (short form) - Note Progress Note: pt seen/ examined awake/ comfortable gi f/u noted pathology report noted Vital Signs Temp 98.7 F 06/08/19 15:16 Pulse 76 06/08/19 15:16 Resp 18 06/08/19 15:16 BP 140/63 06/08/19 15:16 Pulse Ox 97 06/08/19 10:00 Intake & Output 06/07/19 06/08/19 06/08/19 23:59 11:59 23:59 Intake Total 540 640 420 Balance 540 640 420 Intake: Oral 540 640 420 Other: Voiding Method Incontinent Incontinent Incontinent # Unmeasured Voids Void 1 1 1 Bowel Movement No No Yes # Bowel Movements 1 1 Body Mass Index (BMI) 30.1 Active Medications Acetaminophen (Tylenol -) 650 mg PO Q6H PRN PRN Reason: PAIN Last Admin: 06/08/19 15:31 Dose: 650 mg Cefuroxime Axetil (Ceftin -) 250 mg PO BID [facility] Last Admin: 06/08/19 11:02 Dose: 250 mg Cyclobenzaprine HCl (Cyclobenzaprine Hcl) 5 mg PO BID PRN PRN Reason: BACK PAIN Last Admin: 06/08/19 11:01 Dose: 5 mg Guaifenesin (Robitussin Dm -) 10 ml PO Q6H PRN PRN Reason: COUGH Last Admin: 06/07/19 22:23 Dose: 10 ml Insulin Aspart (Novolog Vial Sliding Scale -) 1 vial SQ TIDAC [facility]; Protocol Last Admin: 06/08/19 11:15 Dose: 2 units Insulin Detemir (Levemir Vial) 3 units SQ DAILY [facility] Last Admin: 06/08/19 11:15 Dose: 3 units Levothyroxine Sodium (Synthroid -) 62.5 mcg PO DAILY@0700 [facility] Last Admin: 06/08/19 06:22 Dose: 62.5 mcg Lidocaine (Lidoderm Patch -) 2 patch TP DAILY [facility] Last Admin: 06/08/19 11:16 Dose: Not Given Metoprolol Succinate (Toprol Xl -) 25 mg PO DAILY [facility] Last Admin: 06/08/19 11:02 Dose: 25 mg Miscellaneous (Lidoderm Patch Removal) 1 each MC DAILY@2200 [facility] Last Admin: 06/07/19 22:18 Dose: 1 each Oxycodone HCl (Roxicodone -) 5 mg PO BID PRN PRN Reason: PAIN LEVEL 6-10 Last Admin: 06/08/19 11:01 Dose: 5 mg Pantoprazole Sodium (Protonix Iv) 40 mg IVPUSH BID TERESITA Last Admin: 06/08/19 11:02 Dose: 40 mg CBC, BMP 06/05/19 12:15 06/05/19 12:15 Physical Exam. Constitutional: Yes: No Distress, , obese. comfortable. Eyes: Yes: Conjunctiva Clear, Other (pale) Neck: Yes: Supple. no jvd . Cardiovascular: Yes: Regular Rate and Rhythm Respiratory: Yes: Diminished Gastrointestinal: Yes: Soft, non tender.bs + Edema: LLE: 1+, RLE: 1+-- chronic skin changes -- Psychiatric: Yes: Alert ASSESSMENT/PLAN: s/p egd. Pathology negative for cancer continue present care discussed with GI Monitor blood sugar today Will discharge tomorrow Patient would like to go home only Discharge plan discussed with patient--- she agrees with same Problem List - Problems (1) Anemia Code(s): D64.9 - ANEMIA, UNSPECIFIED Qualifiers: (2) Fever in adult Code(s): R50.9 - FEVER, UNSPECIFIED (3) History of fall Code(s): Z91.81 - HISTORY OF FALLING (4) Hyperlipemia Code(s): E78.5 - HYPERLIPIDEMIA, UNSPECIFIED (5) Uncontrolled diabetes mellitus Code(s): E11.65 - TYPE 2 DIABETES MELLITUS WITH HYPERGLYCEMIA (6) Urinary tract infection Code(s): N39.0 - URINARY TRACT INFECTION, SITE NOT SPECIFIED Qualifiers: (7) Acute renal failure superimposed on chronic kidney disease Code(s): N17.9 - ACUTE KIDNEY FAILURE, UNSPECIFIED; N18.9 - CHRONIC KIDNEY DISEASE, UNSPECIFIED
[2019-06-08] MEDS ORDERED: PT OWN MED DRAWER 7, Y5N ONE (21:49)
[2019-06-08] MEDS: LIDOCAINE PATCH REMOVAL MC SCH (21:51)
[2019-06-09] MEDS: ACETAMINOPHEN 325 MG TABLET (FP) PO PRN ×3 (02:45→17:37)
[2019-06-09] MEDS: LEVOTHYROXINE NA 25 MCG TABLET (FP) PO SCH (07:05)
[2019-06-09] MEDS: INSULIN SLIDING SCALE (NOVOLOG) 1 VIAL SQ SCH ×3 (07:06→17:35)
[2019-06-09] MEDS ORDERED: INSULIN (NOVOLOG) ASPART 100 UNITS/ML 10ML VIAL ONE (07:12)
--- NOTE | 2019-06-09 09:34 | PN ---
Progress Note (short form) - Note Progress Note: Denies any new complaints Back pain off and on No further episode of hypoglycemia FS 92 at HS Vital Signs Period Temp Pulse Resp BP Sys/Sibley Pulse Ox Last 24 Hr 97.9 F-98.7 F 64-79 - 113-140/58-82 97-97 PE: AOx3 Neck: supple, No JVD HEENT: EOMI Lungs: CTA CVS: S1S2 Abd: Benign Ext: No edema. CMP Sodium 137 mmol/L (136-145) 06/05/19 12:15 Potassium 4.2 mmol/L (3.5-5.1) 06/05/19 12:15 Chloride 110 mmol/L (98-107) H 06/05/19 12:15 Carbon Dioxide 17 mmol/L (21-32) L 06/05/19 12:15 Anion Gap 11 MMOL/L (8-16) 06/05/19 12:15 BUN 42.2 mg/dL (7-18) H 06/05/19 12:15 Creatinine 1.9 mg/dL (0.55-1.3) H 06/05/19 12:15 Est GFR (CKD-EPI)AfAm 34.28 06/05/19 12:15 Est GFR (CKD-EPI)NonAf 29.58 06/05/19 12:15 POC Glucometer 257 UNITS (80-120) 06/09/19 06:16 Random Glucose 239 mg/dL (74-106) H 06/05/19 12:15 Hemoglobin A1c % 6.3 % (4.2-6.3) 06/01/19 05:40 Lactic Acid 1.3 mmol/L (0.4-2.0) 05/30/19 22:15 Calcium 7.6 mg/dL (8.5-10.1) L 06/05/19 12:15 Total Bilirubin 0.5 mg/dL (0.2-1) 06/05/19 12:15 AST 22 U/L (15-37) 06/05/19 12:15 ALT 13 U/L (13-61) 06/05/19 12:15 Alkaline Phosphatase 235 U/L (45-117) H 06/05/19 12:15 Creatine Kinase 188 U/L (26-192) 05/30/19 19:55 Creatine Kinase Index 1.1 % (0.0-5.0) 05/30/19 19:55 CK-MB (CK-2) 2.2 ng/mL (0.5-3.6) 05/30/19 19:55 Troponin I 0.04 ng/ml (0.00-0.05) 06/05/19 12:15 Total Protein 5.2 g/dl (6.4-8.2) L 06/05/19 12:15 Albumin 2.0 g/dl (3.4-5.0) L 06/05/19 12:15 TSH 7.96 uIU/ml (0.358-3.74) H 05/30/19 19:55 Free T4 1.01 ng/dl (0.76-1.46) 05/30/19 19:55 Current Medications Generic Name Dose Route Start Last Admin Trade Name Freq PRN Reason Stop Dose Admin Acetaminophen 650 mg 06/04/19 12:02 06/09/19 02:45 Tylenol - PO 650 mg Q6H PRN Administration PAIN Cefuroxime Axetil 250 mg 06/04/19 22:00 06/08/19 21:56 Ceftin - PO 250 mg BID TERESITA Administration Cyclobenzaprine HCl 5 mg 06/04/19 12:14 06/08/19 21:56 Cyclobenzaprine Hcl PO 5 mg BID PRN Administration BACK PAIN Guaifenesin 10 ml 06/06/19 21:11 06/07/19 22:23 Robitussin Dm - PO 10 ml Q6H PRN Administration COUGH Insulin Aspart 1 vial 06/01/19 16:00 06/09/19 07:06 Novolog Vial Sliding Scale - SQ 4 units TIDAC TERESITA Administration Protocol Insulin Detemir 3 units 06/02/19 10:00 06/08/19 11:15 Levemir Vial SQ 3 units DAILY TERESITA Administration Levothyroxine Sodium 62.5 mcg 06/02/19 07:00 06/09/19 07:05 Synthroid - PO 62.5 mcg DAILY@0700 TERESITA Administration Lidocaine 2 patch 06/01/19 16:00 06/08/19 11:16 Lidoderm Patch - TP Not Given DAILY [facility] Metoprolol Succinate 25 mg 06/05/19 10:00 06/08/19 11:02 Toprol Xl - PO 25 mg DAILY TERESITA Administration Miscellaneous 1 each 06/01/19 22:00 06/08/19 21:51 Lidoderm Patch Removal MC Not Given DAILY@2200 TERESITA Pantoprazole Sodium 40 mg 06/04/19 22:00 06/08/19 21:56 Protonix Iv IVPUSH 40 mg BID TERESITA Administration AP No further Episode of hypoglycemia DM S/P Fall Hypothyroidism TSH 7.96 HTN HLD Gastric polyp: EGD report noted. Monitor BGM QACHS Levemir 3 units daily in morning Novolog Ss coverage Change Insulin dose as necessary depending upon the blood sugar readings. Pt may go home on current Insulin regimen. LT4 62.5mcg QD Will F/U
[2019-06-09] MEDS: LIDOCAINE 5% TOPICAL PATCH TP SCH ×2 (09:35→09:49)
[2019-06-09] MEDS: PANTOPRAZOLE SODIUM 40 MG VIAL IVPUSH SCH ×2 (09:47→23:55)
[2019-06-09] MEDS: CYCLOBENZAPRINE HCL 5 MG TABLET PO PRN ×2 (09:47→23:53)
[2019-06-09] MEDS: metoPROLOL SUCCINATE 25 MG TAB.SR.24H (FP) PO SCH (09:48)
[2019-06-09] MEDS: INSULIN (LEVEMIR) 100 UNITS/ML UNITS SQ SCH (09:49)
[2019-06-09] MEDS: CEFUROXIME AXETIL 250 MG TABLET PO SCH ×2 (09:49→21:12)
[2019-06-09] MEDS: oxyCODONE HCL 5 MG TABLET PO PRN ×2 (10:24→21:13)
--- NOTE | 2019-06-09 12:43 | DS ---
Physical Examination Vital Signs: Vital Signs Temperature 97.3 F L 06/09/19 10:00 Pulse Rate 80 06/09/19 10:00 Respiratory Rate 16 06/09/19 10:00 Blood Pressure 133/77 06/09/19 10:00 O2 Sat by Pulse Oximetry (%) 98 06/09/19 09:00 Findings/Remarks: Comfortable sitting in chair pt now decided to go to str denies cp back pain much better. Constitutional: Yes: No Distress, Obese. No: Well Nourished, Mild Distress Eyes: Yes: Conjunctiva Clear Neck: Yes: Supple Cardiovascular: Yes: Regular Rate and Rhythm Respiratory: Yes: Diminished Gastrointestinal: Yes: Soft, Abdomen, Obese Edema: LLE: Trace, RLE: Trace Integumentary: Yes: Venous Stasis Changes Neurological: Yes: Alert Psychiatric: Yes: Alert Labs: CBC, BMP 06/05/19 12:15 06/05/19 12:15 Discharge Summary Reason For Visit: BACTERIURIA WITH PYURIA/UNCONTROLLED TYPE1 DIABETE Current Active Problems Anemia (Acute) Fever in adult (Acute) History of fall (Acute) Hyperlipemia (Acute) Hyponatremia (Acute) Hypothyroid (Acute) Lightheadedness (Acute) Occult GI bleeding (Acute) Sepsis (Acute) Uncontrolled diabetes mellitus (Acute) Urinary tract infection (Acute) Hospital Course: In Summary HISTORY OF PRESENT ILLNESS: 53 year old female with PMHx of CKD stage 3, nephropathies , IDDM, diabetic nephropathy, HLD, HLD, CHF Breast Ca ( s/p b/l mastectomy) , scleroderma, and psoriasis arrived to ED due to weakness " no feeling like herself" post fall ?head injury, as per patient her called EMS and brought to ER for further evaluation. As per EMS patient was tachy ( 140s en route). Patient denies sob/cp, N/V, dizziness. ER course was notable for: (1) + occult blood, + UA (2) PRBC x1, given PPI, given cefepime and levo x1 (3) CT head ---ve PAST MEDICAL HISTORY: CKD stage 3, nephropathies , IDDM, diabetic nephropathy, HLD, HLD, CHF Breast Ca , scleroderma, and psoriasis . PAST SURGICAL HISTORY: b/l mastectomy; appendectomy . pt admitted ct head -ve gi followed egd done- see report-- Need to follow with GI as out pt hospital course complicated by uti/ back pain treated with abx now better pt also counselled about alcohol cessation pt also has brittle diabetes-- Need close monitoring and in hospital - monitored by Endo Now stable for d/c meds reconcilled stable for d/c when bed available. Discussed with nursing staff/ casework specialist will follow Condition: Guarded - Instructions Disposition: CARE HOME FACILITY - Home Medications Comprehensive Discharge Medication List: Ambulatory Orders Metoprolol Succinate [Toprol XL -] 25 mg PO DAILY 07/19/14 Mauri/D3/Mag11/Zinc/Pasting Inspector/Atif/Bor [Caltrate 600+D Plus Tablet] 1 each PO DAILY Omeprazole 20 mg PO DAILY 03/19/19 Insulin Lispro [Humalog] 0 unit SQ AC 04/10/19 Acetaminophen [Tylenol .Regular Strength -] 650 mg PO Q6H PRN tablet 04/23/19 Furosemide [Lasix] 40 mg PO DAILY 30 Days #30 tablet 04/23/19 Metoclopramide HCl [Reglan] 10 mg PO TID #90 tablet 04/23/19 Triamcinolone 0.1% Cream [Aristocort 0.1% Cream -] 1 applic TP BID applic 04/23 Insulin Degludec [Tresiba] 4 unit SQ DAILY 05/30/19 Cyclobenzaprine HCl 5 mg PO BID PRN #60 tablet 06/09/19 Guaifenesin Dm [Robitussin Dm -] 10 ml PO Q6H PRN cup 06/09/19 Insulin (Levemir) [Levemir Vial] 3 units SQ DAILY units 06/09/19 Levothyroxine [Synthroid -] 62.5 mcg PO DAILY@0700 30 Days #30 tablet 06/09/19 Lidocaine 5% Patch [Lidoderm -] 2 patch TP DAILY 30 Days #60 patch 06/09/19
[2019-06-09] MEDS ORDERED: PANTOPRAZOLE 40 MG TABLET (FP) PO ONE (21:36)
[2019-06-09] MEDS: LIDOCAINE PATCH REMOVAL MC SCH (23:55)
[2019-06-10] MEDS: INSULIN SLIDING SCALE (NOVOLOG) 1 VIAL SQ SCH ×3 (06:28→16:40)
[2019-06-10] MEDS: LEVOTHYROXINE NA 25 MCG TABLET (FP) PO SCH (06:29)
[2019-06-10] MEDS: oxyCODONE HCL 5 MG TABLET PO PRN ×2 (06:29→23:02)
[2019-06-10] MEDS: LIDOCAINE 5% TOPICAL PATCH TP SCH (10:10)
[2019-06-10] MEDS: metoPROLOL SUCCINATE 25 MG TAB.SR.24H (FP) PO SCH (10:11)
[2019-06-10] MEDS: INSULIN (LEVEMIR) 100 UNITS/ML UNITS SQ SCH (10:11)
[2019-06-10] MEDS: PANTOPRAZOLE SODIUM 40 MG VIAL IVPUSH SCH (10:11)
[2019-06-10] MEDS: CEFUROXIME AXETIL 250 MG TABLET PO SCH ×2 (10:16→23:23)
--- NOTE | 2019-06-10 10:21 | PN ---
Progress Note (short form) - Note Progress Note: pt seen/ examined comfortable no new issues. Vital Signs Temp 98.2 F 06/10/19 06:00 Pulse 72 06/10/19 06:00 Resp 20 06/10/19 06:00 BP 152/64 06/10/19 06:00 Pulse Ox 98 06/09/19 21:00 Intake & Output 06/09/19 06/09/19 06/10/19 11:59 23:59 11:59 Intake Total 1290 240 Balance 1290 240 Intake: Oral 1290 240 Other: Voiding Method Incontinent Incontinent # Unmeasured Voids Void 1 Bowel Movement No Yes # Bowel Movements 2 Active Medications Acetaminophen (Tylenol -) 650 mg PO Q6H PRN PRN Reason: PAIN Last Admin: 06/09/19 17:37 Dose: 650 mg Cefuroxime Axetil (Ceftin -) 250 mg PO BID [facility] Last Admin: 06/10/19 10:16 Dose: 250 mg Cyclobenzaprine HCl (Cyclobenzaprine Hcl) 5 mg PO BID PRN PRN Reason: BACK PAIN Last Admin: 06/09/19 23:53 Dose: 5 mg Guaifenesin (Robitussin Dm -) 10 ml PO Q6H PRN PRN Reason: COUGH Last Admin: 06/07/19 22:23 Dose: 10 ml Insulin Aspart (Novolog Vial Sliding Scale -) 1 vial SQ TIDAC [facility]; Protocol Last Admin: 06/10/19 06:28 Dose: 2 units Insulin Detemir (Levemir Vial) 3 units SQ DAILY [facility] Last Admin: 06/10/19 10:11 Dose: 3 units Levothyroxine Sodium (Synthroid -) 62.5 mcg PO DAILY@0700 [facility] Last Admin: 06/10/19 06:29 Dose: 62.5 mcg Lidocaine (Lidoderm Patch -) 2 patch TP DAILY [facility] Last Admin: 06/10/19 10:10 Dose: 2 patch Metoprolol Succinate (Toprol Xl -) 25 mg PO DAILY [facility] Last Admin: 06/10/19 10:11 Dose: 25 mg Miscellaneous (Lidoderm Patch Removal) 1 each MC DAILY@2200 [facility] Last Admin: 06/09/19 23:55 Dose: Not Given Oxycodone HCl (Roxicodone -) 5 mg PO BID PRN PRN Reason: PAIN SCALE 6-10 Last Admin: 06/10/19 06:29 Dose: 5 mg Pantoprazole Sodium (Protonix Iv) 40 mg IVPUSH BID TERESITA Last Admin: 06/10/19 10:11 Dose: 40 mg CBC, BMP 06/05/19 12:15 06/05/19 12:15 Physical Exam. Constitutional: Yes: No Distress, , obese. comfortable. Eyes: Yes: Conjunctiva Clear, Other (pale) Neck: Yes: Supple. no jvd . Cardiovascular: Yes: Regular Rate and Rhythm Respiratory: Yes: Diminished Gastrointestinal: Yes: Soft, non tender.bs + Edema: LLE: 1+, RLE: 1+-- chronic skin changes -- Psychiatric: Yes: Alert ASSESSMENT/PLAN: stable awaiting insurance authorization--- to go to rehabilitation See detailed discharge --yesterday Will continue to monitor----while in the hospital Problem List - Problems (1) Anemia Code(s): D64.9 - ANEMIA, UNSPECIFIED Qualifiers: (2) Fever in adult Code(s): R50.9 - FEVER, UNSPECIFIED (3) History of fall Code(s): Z91.81 - HISTORY OF FALLING (4) Hyperlipemia Code(s): E78.5 - HYPERLIPIDEMIA, UNSPECIFIED (5) Uncontrolled diabetes mellitus Code(s): E11.65 - TYPE 2 DIABETES MELLITUS WITH HYPERGLYCEMIA (6) Urinary tract infection Code(s): N39.0 - URINARY TRACT INFECTION, SITE NOT SPECIFIED Qualifiers: (7) Acute renal failure superimposed on chronic kidney disease Code(s): N17.9 - ACUTE KIDNEY FAILURE, UNSPECIFIED; N18.9 - CHRONIC KIDNEY DISEASE, UNSPECIFIED
--- NOTE | 2019-06-10 15:05 | CON.GI ---
Consult Consult Specialty:: GI for Reason for Consultation:: anemia - History of Present Illness History of Present Illness: 53 y/o femal with PMHx of CKD, Breast ca, hypothyroidism, HLD, CHF. Admitted with weakness. Found to be anemic with positive stool occult blood test. Most recent labs done 06/05/19 noted to have normal H/H a 11.1/33.7. s/p EGD with on 06/02/19 revealing esophageal ulcer and large prepyloric polypoid lesion. EGD Pathology was negative for malignancy and negative for h.pylori. Colonoscopy done 2017 with colonic polyp s/p polypectomy. requesting EUS to complete work up. - Past Medical History [employer]: Yes: Peripheral Neuropathy (walks with a walker) Cardio/Vascular: Yes: HTN, Hyperlipdemia Gastrointestinal: Yes: Constipation Renal/: Yes: Renal Calculi, UTI ...LMP: 04/17/10 Rheumatology: Yes: Other (Scleroderma,psoriasis) Endocrine: Yes: Diabetes Mellitus Dermatology: Yes: Psoriasis, Other (scleroderma) Additional Medical History: h/o Lt. breast cancer--2009. 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 s/p bilateral mastectomies/axillary lymphadenectomy. s/p RT to Lt. chestwall. s/p adjuvant chemotherapy - Past Surgical History Past Surgical History: Yes: Appendectomy, , Mastectomy (Bilateral) - Alcohol/Substance Use Hx Alcohol Use: No History of Substance Use: reports: None - Smoking History Smoking history: Unknown if ever smoked Have you smoked in the past 12 months: No Aproximately how many cigarettes per day: 0 - Social History ADL: Family Assistance Occupation: Unemployed History of Recent Travel: No Home Medications - Allergies Allergies/Adverse Reactions: Allergies Allergy/AdvReac Type Severity Reaction Status Date / Time Sulfa (Sulfonamide Allergy Intermediate Hives Verified 03/19/19 10:19 Antibiotics) [Sulfa(Sulfonamide Antibiotics)] terbinafine HCl Allergy Intermediate Rash Verified 03/19/19 10:19 [From Lamisil] - Home Medications Home Medications: Ambulatory Orders Metoprolol Succinate [Toprol XL -] 25 mg PO DAILY 07/19/14 Mauri/D3/Mag11/Zinc/Slasher Tender Helper/Atif/Bor [Caltrate 600+D Plus Tablet] 1 each PO DAILY Omeprazole 20 mg PO DAILY 03/19/19 Insulin Lispro [Humalog] 0 unit SQ AC 04/10/19 Acetaminophen [Tylenol .Regular Strength -] 650 mg PO Q6H PRN tablet 04/23/19 Furosemide [Lasix] 40 mg PO DAILY 30 Days #30 tablet 04/23/19 Metoclopramide HCl [Reglan] 10 mg PO TID #90 tablet 04/23/19 Triamcinolone 0.1% Cream [Aristocort 0.1% Cream -] 1 applic TP BID applic 04/23 Insulin Degludec [Tresiba] 4 unit SQ DAILY 05/30/19 Cyclobenzaprine HCl 5 mg PO BID PRN #60 tablet 06/09/19 Guaifenesin Dm [Robitussin Dm -] 10 ml PO Q6H PRN cup 06/09/19 Insulin (Levemir) [Levemir Vial] 3 units SQ DAILY units 06/09/19 Levothyroxine [Synthroid -] 62.5 mcg PO DAILY@0700 30 Days #30 tablet 06/09/19 Lidocaine 5% Patch [Lidoderm -] 2 patch TP DAILY 30 Days #60 patch 06/09/19 Family Disease History - Family Disease History Family Disease History: CA: Grandparent (paternal grandmother --colon ca// maternal grandmother --breast cancer), Father (colon cancer; had kidney stones) , Mother (; also was on dialysis; had no diabetes), Other: Sister (kidney stones younger sister, colon polyps) Physical Exam-GI Vital Signs: Vital Signs Temperature 98.2 F 06/10/19 10:00 Pulse Rate 81 06/10/19 10:00 Respiratory Rate 20 06/10/19 10:00 Blood Pressure 144/79 06/10/19 10:00 O2 Sat by Pulse Oximetry (%) 98 06/09/19 21:00 Constitutional: Yes: No Distress Eyes: Yes: Conjunctiva Clear HENT: Yes: Atraumatic Neck: Yes: Supple Cardiovascular: Yes: Regular Rate and Rhythm Respiratory: Yes: CTA Bilaterally ...Palpate: Yes: Soft, Tenderness (mild tenderness in llq). No: Firm/Rigid, Guarding, Hepatomegaly, Mass, Pulsatile Mass, Splenomegaly Labs: CBC, BMP 06/05/19 12:15 06/05/19 12:15 INR, PTT INR 1.03 (0.83-1.09) 05/30/19 19:55 Problem List - Problems (1) Occult GI bleeding Assessment/Plan: --mild anemia R> consider video capsule endoscopy as an outpatient Dr Sánchez will be covering this weekend Code(s): R19.5 - OTHER FECAL ABNORMALITIES
[2019-06-10] MEDS ORDERED: GLUCAGON 1 MG KIT IM PRN (18:32)
--- NOTE | 2019-06-10 18:40 | PN ---
Progress Note (short form) - Note Progress Note: Episode of symptomatic hypoglycemia FS 29 No AMS Vital Signs Period Temp Pulse Resp BP Sys/Sibley Pulse Ox Last 24 Hr 98.0 F-98.2 F 72-81 18-20 132-152/64-84 98 PE: AOx3 Neck: supple, No JVD HEENT: EOMI Lungs: CTA CVS: S1S2 Abd: Benign Ext: No edema. CMP Sodium 137 mmol/L (136-145) 06/05/19 12:15 Potassium 4.2 mmol/L (3.5-5.1) 06/05/19 12:15 Chloride 110 mmol/L (98-107) H 06/05/19 12:15 Carbon Dioxide 17 mmol/L (21-32) L 06/05/19 12:15 Anion Gap 11 MMOL/L (8-16) 06/05/19 12:15 BUN 42.2 mg/dL (7-18) H 06/05/19 12:15 Creatinine 1.9 mg/dL (0.55-1.3) H 06/05/19 12:15 Est GFR (CKD-EPI)AfAm 34.28 06/05/19 12:15 Est GFR (CKD-EPI)NonAf 29.58 06/05/19 12:15 POC Glucometer 41 UNITS (80-120) 06/10/19 17:19 Random Glucose 239 mg/dL (74-106) H 06/05/19 12:15 Hemoglobin A1c % 6.3 % (4.2-6.3) 06/01/19 05:40 Lactic Acid 1.3 mmol/L (0.4-2.0) 05/30/19 22:15 Calcium 7.6 mg/dL (8.5-10.1) L 06/05/19 12:15 Total Bilirubin 0.5 mg/dL (0.2-1) 06/05/19 12:15 AST 22 U/L (15-37) 06/05/19 12:15 ALT 13 U/L (13-61) 06/05/19 12:15 Alkaline Phosphatase 235 U/L (45-117) H 06/05/19 12:15 Creatine Kinase 188 U/L (26-192) 05/30/19 19:55 Creatine Kinase Index 1.1 % (0.0-5.0) 05/30/19 19:55 CK-MB (CK-2) 2.2 ng/mL (0.5-3.6) 05/30/19 19:55 Troponin I 0.04 ng/ml (0.00-0.05) 06/05/19 12:15 Total Protein 5.2 g/dl (6.4-8.2) L 06/05/19 12:15 Albumin 2.0 g/dl (3.4-5.0) L 06/05/19 12:15 TSH 7.96 uIU/ml (0.358-3.74) H 05/30/19 19:55 Free T4 1.01 ng/dl (0.76-1.46) 05/30/19 19:55 Current Medications Generic Name Dose Route Start Last Admin Trade Name Freq PRN Reason Stop Dose Admin Acetaminophen 650 mg 06/04/19 12:02 06/09/19 17:37 Tylenol - PO 650 mg Q6H PRN Administration PAIN Cefuroxime Axetil 250 mg 06/04/19 22:00 06/10/19 10:16 Ceftin - PO 250 mg BID [facility] Administration Cyclobenzaprine HCl 5 mg 06/04/19 12:14 06/09/19 23:53 Cyclobenzaprine Hcl PO 5 mg BID PRN Administration BACK PAIN Glucagon 1 mg 06/10/19 18:45 Glucagon - IM 06/10/19 18:46 ONCE ONE Glucagon 1 mg 06/10/19 18:32 Glucagon - IM ONCE PRN Blood sugar <60 or AMS Guaifenesin 10 ml 06/06/19 21:11 06/07/19 22:23 Robitussin Dm - PO 10 ml Q6H PRN Administration COUGH Insulin Aspart 1 vial 06/01/19 16:00 06/10/19 16:40 Novolog Vial Sliding Scale - SQ Not Given TIDAC [facility] Protocol Insulin Detemir 2 units 06/11/19 07:00 Levemir Vial SQ DAILY [facility] Levothyroxine Sodium 62.5 mcg 06/02/19 07:00 06/10/19 06:29 Synthroid - PO 62.5 mcg DAILY@0700 [facility] Administration Lidocaine 2 patch 06/01/19 16:00 06/10/19 10:10 Lidoderm Patch - TP 2 patch DAILY [facility] Administration Metoprolol Succinate 25 mg 06/05/19 10:00 06/10/19 10:11 Toprol Xl - PO 25 mg DAILY [facility] Administration Miscellaneous 1 each 06/01/19 22:00 06/09/19 23:55 Lidoderm Patch Removal MC Not Given DAILY@2200 [facility] Oxycodone HCl 5 mg 06/09/19 10:01 06/10/19 06:29 Roxicodone - PO 5 mg BID PRN Administration PAIN SCALE 6-10 Pantoprazole Sodium 40 mg 06/04/19 22:00 06/10/19 10:11 Protonix Iv IVPUSH 40 mg BID [facility] Administration AP Episode of hypoglycemia DM S/P Fall Hypothyroidism TSH 7.96 HTN HLD Gastric polyp: EGD report noted. Monitor BGM QACHS Glucacon 1mg IM stat BGM Q 30 mins until FS >120 Juice if FS is <100 Decrease Levemir 2 units daily in morning Decrease Novolog Ss coverage snack of 120 KCal around 3 PM Change Insulin dose as necessary depending upon the blood sugar readings. Pt may go home on current Insulin regimen. LT4 62.5mcg QD Will F/U
[2019-06-10] MEDS ORDERED: GLUCAGON 1 MG KIT IM ONE (18:45)
[2019-06-10] MEDS ORDERED: PT OWN MED DRAWER 7, Y5N ONE (23:00)
[2019-06-10] MEDS: LIDOCAINE PATCH REMOVAL MC SCH (23:03)
[2019-06-11] MEDS: INSULIN (LEVEMIR) 100 UNITS/ML UNITS SQ SCH (06:23)
[2019-06-11] MEDS: INSULIN SLIDING SCALE (NOVOLOG) 1 VIAL SQ SCH ×3 (06:23→16:33)
[2019-06-11] MEDS: LEVOTHYROXINE NA 25 MCG TABLET (FP) PO SCH (06:50)
[2019-06-11] MEDS: oxyCODONE HCL 5 MG TABLET PO PRN ×2 (06:53→23:09)
[2019-06-11] MEDS: LIDOCAINE 5% TOPICAL PATCH TP SCH (10:30)
[2019-06-11] MEDS: metoPROLOL SUCCINATE 25 MG TAB.SR.24H (FP) PO SCH (10:31)
[2019-06-11] MEDS: PANTOPRAZOLE 40 MG TABLET (FP) PO SCH (10:31)
[2019-06-11] MEDS: CEFUROXIME AXETIL 250 MG TABLET PO SCH (10:32)
--- NOTE | 2019-06-11 10:40 | PN ---
Progress Note (short form) - Note Progress Note: pt seen/ examined periods of hypoglycemia-- brittle diabetes- endo following Vital Signs Temp 98.9 F 06/11/19 06:00 Pulse 81 06/11/19 06:00 Resp 20 06/11/19 06:00 BP 139/78 06/11/19 06:00 Pulse Ox 98 06/09/19 21:00 Intake & Output 06/10/19 06/10/19 06/11/19 11:59 23:59 11:59 Intake Total 240 600 Balance 240 600 Intake: Oral 240 600 Other: Voiding Method Incontinent Incontinent # Unmeasured Voids Void 1 2 Bowel Movement Yes Yes # Bowel Movements 2 1 Active Medications Acetaminophen (Tylenol -) 650 mg PO Q6H PRN PRN Reason: PAIN Last Admin: 06/09/19 17:37 Dose: 650 mg Cefuroxime Axetil (Ceftin -) 250 mg PO BID [facility] Last Admin: 06/11/19 10:32 Dose: 250 mg Cyclobenzaprine HCl (Cyclobenzaprine Hcl) 5 mg PO BID PRN PRN Reason: BACK PAIN Last Admin: 06/09/19 23:53 Dose: 5 mg Guaifenesin (Robitussin Dm -) 10 ml PO Q6H PRN PRN Reason: COUGH Last Admin: 06/07/19 22:23 Dose: 10 ml Insulin Aspart (Novolog Vial Sliding Scale -) 1 v[facility]; Protocol Last Admin: 06/11/19 06:23 Dose: Not Given Insulin Detemir (Levemir Vial) 2 units SQ DAILY@0700 [facility] Last Admin: 06/11/19 06:23 Dose: Not Given Levothyroxine Sodium (Synthroid -) 62.5 mcg PO DAILY@0700 [facility] Last Admin: 06/11/19 06:50 Dose: 62.5 mcg Lidocaine (Lidoderm Patch -) 2 patch TP DAILY [facility] Last Admin: 06/11/19 10:30 Dose: 2 patch Metoprolol Succinate (Toprol Xl -) 25 mg PO DAILY [facility] Last Admin: 06/11/19 10:31 Dose: 25 mg Miscellaneous (Lidoderm Patch Removal) 1 each MC DAILY@2200 [facility] Last Admin: 06/10/19 23:03 Dose: 1 each Oxycodone HCl (Roxicodone -) 5 mg PO BID PRN PRN Reason: PAIN SCALE 6-10 Last Admin: 06/11/19 06:53 Dose: 5 mg Pantoprazole Sodium (Protonix -) 40 mg PO DAILY [facility] Last Admin: 06/11/19 10:31 Dose: 40 mg CBC, BMP 06/05/19 12:15 06/05/19 12:15 Physical Exam. Constitutional: Yes: No Distress, , obese. comfortable. Eyes: Yes: Conjunctiva Clear, Other (pale) Neck: Yes: Supple. no jvd . Cardiovascular: Yes: Regular Rate and Rhythm Respiratory: Yes: Diminished Gastrointestinal: Yes: Soft, non tender.bs + Edema: LLE: 1+, RLE: 1+-- chronic skin changes -- Psychiatric: Yes: Alert ASSESSMENT/PLAN: stable awaiting insurance authorization--- to go to rehabilitation See detailed discharge -- Will continue to monitor----while in the hospital Will get x-ray of the LS-spine--- back pain issues We'll also start on low dose of diuretics Will monitor lites--- tomorrow--- if patient still in the hospital Will follow Problem List - Problems (1) Anemia Code(s): D64.9 - ANEMIA, UNSPECIFIED Qualifiers: (2) Fever in adult Code(s): R50.9 - FEVER, UNSPECIFIED (3) History of fall Code(s): Z91.81 - HISTORY OF FALLING (4) Hyperlipemia Code(s): E78.5 - HYPERLIPIDEMIA, UNSPECIFIED (5) Uncontrolled diabetes mellitus Code(s): E11.65 - TYPE 2 DIABETES MELLITUS WITH HYPERGLYCEMIA (6) Urinary tract infection Code(s): N39.0 - URINARY TRACT INFECTION, SITE NOT SPECIFIED Qualifiers: (7) Acute renal failure superimposed on chronic kidney disease Code(s): N17.9 - ACUTE KIDNEY FAILURE, UNSPECIFIED; N18.9 - CHRONIC KIDNEY DISEASE, UNSPECIFIED
--- NOTE | 2019-06-11 11:23 | PN ---
Progress Note (short form) - Note Progress Note: Callender nauseous after juice in the morning Feels better now Fs 54 in the morning Vital Signs Period Temp Pulse Resp BP Sys/Sibley Pulse Ox Last 24 Hr 97.9 F-98.9 F 74-81 17-20 133-141/76-97 PE: AOx3 Neck: supple, No JVD HEENT: EOMI Lungs: CTA CVS: S1S2 Abd: Benign Ext: left arm lymphedema CMP Sodium 137 mmol/L (136-145) 06/05/19 12:15 Potassium 4.2 mmol/L (3.5-5.1) 06/05/19 12:15 Chloride 110 mmol/L (98-107) H 06/05/19 12:15 Carbon Dioxide 17 mmol/L (21-32) L 06/05/19 12:15 Anion Gap 11 MMOL/L (8-16) 06/05/19 12:15 BUN 42.2 mg/dL (7-18) H 06/05/19 12:15 Creatinine 1.9 mg/dL (0.55-1.3) H 06/05/19 12:15 Est GFR (CKD-EPI)AfAm 34.28 06/05/19 12:15 Est GFR (CKD-EPI)NonAf 29.58 06/05/19 12:15 POC Glucometer 123 UNITS (80-120) 06/11/19 06:54 Random Glucose 239 mg/dL (74-106) H 06/05/19 12:15 Hemoglobin A1c % 6.3 % (4.2-6.3) 06/01/19 05:40 Lactic Acid 1.3 mmol/L (0.4-2.0) 05/30/19 22:15 Calcium 7.6 mg/dL (8.5-10.1) L 06/05/19 12:15 Total Bilirubin 0.5 mg/dL (0.2-1) 06/05/19 12:15 AST 22 U/L (15-37) 06/05/19 12:15 ALT 13 U/L (13-61) 06/05/19 12:15 Alkaline Phosphatase 235 U/L (45-117) H 06/05/19 12:15 Creatine Kinase 188 U/L (26-192) 05/30/19 19:55 Creatine Kinase Index 1.1 % (0.0-5.0) 05/30/19 19:55 CK-MB (CK-2) 2.2 ng/mL (0.5-3.6) 05/30/19 19:55 Troponin I 0.04 ng/ml (0.00-0.05) 06/05/19 12:15 Total Protein 5.2 g/dl (6.4-8.2) L 06/05/19 12:15 Albumin 2.0 g/dl (3.4-5.0) L 06/05/19 12:15 TSH 7.96 uIU/ml (0.358-3.74) H 05/30/19 19:55 Free T4 1.01 ng/dl (0.76-1.46) 05/30/19 19:55 Current Medications Generic Name Dose Route Start Last Admin Trade Name Freq PRN Reason Stop Dose Admin Acetaminophen 650 mg 06/04/19 12:02 06/09/19 17:37 Tylenol - PO 650 mg Q6H PRN Administration PAIN Cyclobenzaprine HCl 5 mg 06/04/19 12:14 06/09/19 23:53 Cyclobenzaprine Hcl PO 5 mg BID PRN Administration BACK PAIN Furosemide 20 mg 06/11/19 10:45 Lasix - PO DAILY [facility] Guaifenesin 10 ml 06/06/19 21:11 06/07/19 22:23 Robitussin Dm - PO 10 ml Q6H PRN Administration COUGH Insulin Aspart 1 vial 06/11/19 07:00 06/11/19 06:23 Novolog Vial Sliding Scale - SQ Not Given TIDAC [facility] Protocol Insulin Detemir 2 units 06/11/19 07:00 06/11/19 06:23 Levemir Vial SQ Not Given DAILY@0700 [facility] Levothyroxine Sodium 62.5 mcg 06/02/19 07:00 06/11/19 06:50 Synthroid - PO 62.5 mcg DAILY@0700 [facility] Administration Lidocaine 2 patch 06/01/19 16:00 06/11/19 10:30 Lidoderm Patch - TP 2 patch DAILY [facility] Administration Metoprolol Succinate 25 mg 06/05/19 10:00 06/11/19 10:31 Toprol Xl - PO 25 mg DAILY [facility] Administration Miscellaneous 1 each 06/01/19 22:00 06/10/19 23:03 Lidoderm Patch Removal MC 1 each DAILY@2200 [facility] Administration Oxycodone HCl 5 mg 06/09/19 10:01 06/11/19 06:53 Roxicodone - PO 5 mg BID PRN Administration PAIN SCALE 6-10 Pantoprazole Sodium 40 mg 06/11/19 10:00 06/11/19 10:31 Protonix - PO 40 mg DAILY [facility] Administration AP Episode of hypoglycemia DM S/P Fall Hypothyroidism TSH 7.96 HTN HLD Gastric polyp: EGD report noted. Monitor BGM QACHS CMP stat to assess for acidosis and renal function Glucacon 1mg IM stat when FS <60 or if pt has AMS Juice if FS is <100 Levemir 2 units daily in morning Novolog Ss coverage snack of 120 KCal around 3 PM Change Insulin dose as necessary depending upon the blood sugar readings. Pt may go home on current Insulin regimen. LT4 62.5mcg QD Will F/U
[2019-06-11 12:32] LABS: ALBUMIN 2.3 g/dl (3.4-5.0); BILIRUBIN,TOTAL 0.4 mg/dL (0.2-1); BLOOD UREA NITROGEN 42.2 mg/dL (7-18); CALCIUM 7.8 mg/dL (8.5-10.1); CREATININE 1.8 mg/dL (0.55-1.3); TOT PROT 5.8 g/dl (6.4-8.2)
[2019-06-11] MEDS ORDERED: INSULIN (NOVOLOG) ASPART 100 UNITS/ML 10ML VIAL SQ ONE (13:30)
[2019-06-11] MEDS ORDERED: INSULIN (LEVEMIR) 100 UNITS/ML UNITS SQ ONE ×2 (13:30→13:57)
[2019-06-11] MEDS: FUROSEMIDE 20 MG TABLET (FP) PO SCH (13:45)
[2019-06-11] MEDS ORDERED: SODIUM POLYSTYRENE SULFONATE 15 GM/60 ML BOTTLE PO ONE (14:58)
[2019-06-11] MEDS: CYCLOBENZAPRINE HCL 5 MG TABLET PO PRN (23:10)
[2019-06-11] MEDS: LIDOCAINE PATCH REMOVAL MC SCH (23:18)
[2019-06-12] MEDS: INSULIN (LEVEMIR) 100 UNITS/ML UNITS SQ SCH (06:42)
[2019-06-12] MEDS: INSULIN SLIDING SCALE (NOVOLOG) 1 VIAL SQ SCH ×3 (06:42→17:39)
[2019-06-12] MEDS: LEVOTHYROXINE NA 25 MCG TABLET (FP) PO SCH (06:43)
[2019-06-12 08:09] LABS: BASO % 1.5 % (0-2.0); EOS % 4.6 % (0-4.5); HEMATOCRIT 32.1 % (32.4-45.2); HEMOGLOBIN 10.2 GM/dL (10.7-15.3); MCH 30.5 pg (25.7-33.7); MCHC 31.7 g/dl (32.0-36.0); MEAN CELL VOLUME 96.2 fl (80-96); MEAN PLT VOLUME 7.4 fl (7.5-11.1); MONO % 11.7 % (3.8-10.2); NEUT % 60.2 % (42.8-82.8); PLATELET COUNT 97 K/MM3 (134-434); RBC 3.34 M/mm3 (3.60-5.2); RDW 18.2 % (11.6-15.6); WHITE BLOOD COUNT 3.6 K/mm3 (4.0-10.0)
[2019-06-12 08:24] LABS: ALBUMIN 2.2 g/dl (3.4-5.0); BILIRUBIN,TOTAL 0.4 mg/dL (0.2-1); BLOOD UREA NITROGEN 40.6 mg/dL (7-18); CALCIUM 7.7 mg/dL (8.5-10.1); CREATININE 1.6 mg/dL (0.55-1.3); POTASSIUM 5.3 mmol/L (3.5-5.1); TOT PROT 5.6 g/dl (6.4-8.2)
--- NOTE | 2019-06-12 09:33 | PN ---
Progress Note (short form) - Note Progress Note: FS 78 in AM No complaints Vital Signs Period Temp Pulse Resp BP Sys/Sibley Pulse Ox Last 24 Hr 97.8 F-98.7 F 77-96 17-20 127-154/69-100 95 PE: AOx3 Neck: supple, No JVD HEENT: EOMI Lungs: CTA CVS: S1S2 Abd: Benign Ext: left arm lymphedema CMP Sodium 139 mmol/L (136-145) 06/12/19 07:30 Potassium 5.3 mmol/L (3.5-5.1) H 06/12/19 07:30 Chloride 112 mmol/L (98-107) H 06/12/19 07:30 Carbon Dioxide 19 mmol/L (21-32) L 06/12/19 07:30 Anion Gap 9 MMOL/L (8-16) 06/12/19 07:30 BUN 40.6 mg/dL (7-18) H 06/12/19 07:30 Creatinine 1.6 mg/dL (0.55-1.3) H 06/12/19 07:30 Est GFR (CKD-EPI)AfAm 42.20 06/12/19 07:30 Est GFR (CKD-EPI)NonAf 36.41 06/12/19 07:30 POC Glucometer 78 UNITS (80-120) 06/12/19 06:41 Random Glucose 100 mg/dL (74-106) 06/12/19 07:30 Hemoglobin A1c % 6.3 % (4.2-6.3) 06/01/19 05:40 Lactic Acid 1.3 mmol/L (0.4-2.0) 05/30/19 22:15 Calcium 7.7 mg/dL (8.5-10.1) L 06/12/19 07:30 Total Bilirubin 0.4 mg/dL (0.2-1) 06/12/19 07:30 AST 25 U/L (15-37) 06/12/19 07:30 ALT 18 U/L (13-61) 06/12/19 07:30 Alkaline Phosphatase 373 U/L (45-117) H 06/12/19 07:30 Creatine Kinase 188 U/L (26-192) 05/30/19 19:55 Creatine Kinase Index 1.1 % (0.0-5.0) 05/30/19 19:55 CK-MB (CK-2) 2.2 ng/mL (0.5-3.6) 05/30/19 19:55 Troponin I 0.04 ng/ml (0.00-0.05) 06/05/19 12:15 Total Protein 5.6 g/dl (6.4-8.2) L 06/12/19 07:30 Albumin 2.2 g/dl (3.4-5.0) L 06/12/19 07:30 TSH 7.96 uIU/ml (0.358-3.74) H 05/30/19 19:55 Free T4 1.01 ng/dl (0.76-1.46) 05/30/19 19:55 Current Medications Generic Name Dose Route Start Last Admin Trade Name Freq PRN Reason Stop Dose Admin Acetaminophen 650 mg 06/04/19 12:02 06/09/19 17:37 Tylenol - PO 650 mg Q6H PRN Administration PAIN Cyclobenzaprine HCl 5 mg 06/04/19 12:14 06/11/19 23:10 Cyclobenzaprine Hcl PO 5 mg BID PRN Administration BACK PAIN Furosemide 20 mg 06/11/19 10:45 06/11/19 13:45 Lasix - PO 20 mg DAILY [facility] Administration Guaifenesin 10 ml 06/06/19 21:11 06/07/19 22:23 Robitussin Dm - PO 10 ml Q6H PRN Administration COUGH Insulin Aspart 1 vial 06/12/19 11:00 Novolog Vial Sliding Scale - SQ TIDAC [facility] Protocol Insulin Detemir 2 units 06/11/19 07:00 06/12/19 06:42 Levemir Vial SQ Not Given DAILY@0700 [facility] Insulin Detemir 2 units 06/12/19 10:00 Levemir Vial SQ 06/12/19 10:01 ONCE ONE Levothyroxine Sodium 62.5 mcg 06/02/19 07:00 06/12/19 06:43 Synthroid - PO 62.5 mcg DAILY@0700 [facility] Administration Lidocaine 2 patch 06/01/19 16:00 06/11/19 10:30 Lidoderm Patch - TP 2 patch DAILY [facility] Administration Metoprolol Succinate 25 mg 06/05/19 10:00 06/11/19 10:31 Toprol Xl - PO 25 mg DAILY [facility] Administration Miscellaneous 1 each 06/01/19 22:00 06/11/19 23:18 Lidoderm Patch Removal MC 1 each DAILY@2200 [facility] Administration Oxycodone HCl 5 mg 06/09/19 10:01 06/11/19 23:09 Roxicodone - PO 5 mg BID PRN Administration PAIN SCALE 6-10 Pantoprazole Sodium 40 mg 06/11/19 10:00 06/11/19 10:31 Protonix - PO 40 mg DAILY [facility] Administration AP Episode of hypoglycemia DM S/P Fall Hypothyroidism TSH 7.96 HTN HLD Gastric polyp: EGD report noted. Monitor BGM QACHS CMP stat to assess for acidosis and renal function Glucacon 1mg IM stat when FS <60 or if pt has AMS Juice if FS is <100 Levemir 2 units daily in morning. Levemir 2 units at 10 AM today as she didn't get it in the morning. To check FS before administering Levemir. Snack of around 120Kca if FS <120. Novolog Ss coverage snack of 120 KCal around 3 PM Change Insulin dose as necessary depending upon the blood sugar readings. Pt may go home on current Insulin regimen. LT4 62.5mcg QD Will F/U
[2019-06-12] MEDS ORDERED: INSULIN (LEVEMIR) 100 UNITS/ML UNITS SQ ONE ×2 (09:45→10:52)
[2019-06-12] MEDS ORDERED: INSULIN (NOVOLOG) ASPART 100 UNITS/ML 10ML VIAL ONE (10:38)
[2019-06-12] MEDS: metoPROLOL SUCCINATE 25 MG TAB.SR.24H (FP) PO SCH (10:39)
[2019-06-12] MEDS: PANTOPRAZOLE 40 MG TABLET (FP) PO SCH (10:39)
[2019-06-12] MEDS: FUROSEMIDE 20 MG TABLET (FP) PO SCH (10:40)
[2019-06-12] MEDS: LIDOCAINE 5% TOPICAL PATCH TP SCH (10:46)
[2019-06-12] MEDS: oxyCODONE HCL 5 MG TABLET PO PRN ×2 (10:54→21:59)
--- NOTE | 2019-06-12 12:56 | PN ---
Progress Note (short form) - Note Progress Note: Pt seen/ examined no new issues endo following Vital Signs Temp 98.7 F 06/12/19 09:01 Pulse 84 06/12/19 09:01 Resp 20 06/12/19 09:01 BP 127/69 06/12/19 09:01 Pulse Ox 95 06/11/19 21:00 Intake & Output 06/11/19 06/12/19 06/12/19 23:59 11:59 23:59 Intake Total 1000 Balance 1000 Intake: Oral 1000 Other: Voiding Method Incontinent # Unmeasured Voids Void 1 Bowel Movement Yes Yes # Bowel Movements 1 Active Medications Acetaminophen (Tylenol -) 650 mg PO Q6H PRN PRN Reason: PAIN Last Admin: 06/09/19 17:37 Dose: 650 mg Cyclobenzaprine HCl (Cyclobenzaprine Hcl) 5 mg PO BID PRN PRN Reason: BACK PAIN Last Admin: 06/11/19 23:10 Dose: 5 mg Furosemide (Lasix -) 20 mg PO DAILY [facility] Last Admin: 06/12/19 10:40 Dose: 20 mg Guaifenesin (Robitussin Dm -) 10 ml PO Q6H PRN PRN Reason: COUGH Last Admin: 06/07/19 22:23 Dose: 10 ml Insulin Aspart (Novolog Vial Sliding Scale -) 1 vial SQ [facility]; Protocol Last Admin: 06/12/19 12:30 Dose: 2 units Insulin Detemir (Levemir Vial) 2 units SQ DAILY@0700 [facility] Last Admin: 06/12/19 06:42 Dose: Not Given Levothyroxine Sodium (Synthroid -) 62.5 mcg PO DAILY@0700 [facility] Last Admin: 06/12/19 06:43 Dose: 62.5 mcg Lidocaine (Lidoderm Patch -) 2 patch TP DAILY [facility] Last Admin: 06/12/19 10:46 Dose: Not Given Metoprolol Succinate (Toprol Xl -) 25 mg PO DAILY [facility] Last Admin: 06/12/19 10:39 Dose: 25 mg Miscellaneous (Lidoderm Patch Removal) 1 each MC DAILY@2200 [facility] Last Admin: 06/11/19 23:18 Dose: 1 each Oxycodone HCl (Roxicodone -) 5 mg PO BID PRN PRN Reason: PAIN SCALE 6-10 Last Admin: 06/12/19 10:54 Dose: 5 mg Pantoprazole Sodium (Protonix -) 40 mg PO DAILY [facility] Last Admin: 06/12/19 10:39 Dose: 40 mg CBC, BMP 06/12/19 07:30 06/12/19 07:30 x ray-- LS spine - reviewed Physical Exam. Constitutional: Yes: No Distress, , obese. comfortable. Eyes: Yes: Conjunctiva Clear, Other (pale) Neck: Yes: Supple. no jvd . Cardiovascular: Yes: Regular Rate and Rhythm Respiratory: Yes: Diminished Gastrointestinal: Yes: Soft, non tender.bs + Edema: LLE: 1+, RLE: 1+-- chronic skin changes -- Psychiatric: Yes: Alert ASSESSMENT/PLAN: stable awaiting insurance authorization--- to go to rehabilitation See detailed discharge --summary Will continue to monitor----while in the hospital continue same Problem List - Problems (1) Anemia Code(s): D64.9 - ANEMIA, UNSPECIFIED Qualifiers: (2) Fever in adult Code(s): R50.9 - FEVER, UNSPECIFIED (3) History of fall Code(s): Z91.81 - HISTORY OF FALLING (4) Hyperlipemia Code(s): E78.5 - HYPERLIPIDEMIA, UNSPECIFIED (5) Uncontrolled diabetes mellitus Code(s): E11.65 - TYPE 2 DIABETES MELLITUS WITH HYPERGLYCEMIA (6) Urinary tract infection Code(s): N39.0 - URINARY TRACT INFECTION, SITE NOT SPECIFIED Qualifiers: (7) Acute renal failure superimposed on chronic kidney disease Code(s): N17.9 - ACUTE KIDNEY FAILURE, UNSPECIFIED; N18.9 - CHRONIC KIDNEY DISEASE, UNSPECIFIED
[2019-06-12] MEDS: ACETAMINOPHEN 325 MG TABLET (FP) PO PRN (13:54)
[2019-06-12] MEDS: guaiFENesin/D-METHORPHAN HB 10 ML UNIT-DOSE CUPS PO PRN (22:00)
[2019-06-12] MEDS: LIDOCAINE PATCH REMOVAL MC SCH (22:01)
[2019-06-13] MEDS: ACETAMINOPHEN 325 MG TABLET (FP) PO PRN ×2 (03:08→16:57)
[2019-06-13] MEDS ORDERED: INSULIN (NOVOLOG) ASPART 100 UNITS/ML 10ML VIAL ONE (06:00)
[2019-06-13] MEDS: LEVOTHYROXINE NA 25 MCG TABLET (FP) PO SCH (06:41)
[2019-06-13] MEDS: INSULIN (LEVEMIR) 100 UNITS/ML UNITS SQ SCH (06:41)
[2019-06-13] MEDS: INSULIN SLIDING SCALE (NOVOLOG) 1 VIAL SQ SCH ×3 (06:42→17:07)
--- NOTE | 2019-06-13 10:19 | PN ---
Progress Note (short form) - Note Progress Note: No complaints NO hypos Vital Signs Period Temp Pulse Resp BP Sys/Sibley Pulse Ox Last 24 Hr 97.7 F-98.8 F 65-82 20-20 122-147/57-89 95 PE: AOx3 Neck: supple, No JVD HEENT: EOMI Lungs: CTA CVS: S1S2 Abd: Benign Ext: left arm lymphedema CMP Sodium 139 mmol/L (136-145) 06/12/19 07:30 Potassium 5.3 mmol/L (3.5-5.1) H 06/12/19 07:30 Chloride 112 mmol/L (98-107) H 06/12/19 07:30 Carbon Dioxide 19 mmol/L (21-32) L 06/12/19 07:30 Anion Gap 9 MMOL/L (8-16) 06/12/19 07:30 BUN 40.6 mg/dL (7-18) H 06/12/19 07:30 Creatinine 1.6 mg/dL (0.55-1.3) H 06/12/19 07:30 Est GFR (CKD-EPI)AfAm 42.20 06/12/19 07:30 Est GFR (CKD-EPI)NonAf 36.41 06/12/19 07:30 POC Glucometer 186 UNITS (80-120) 06/13/19 05:55 Random Glucose 100 mg/dL (74-106) 06/12/19 07:30 Hemoglobin A1c % 6.3 % (4.2-6.3) 06/01/19 05:40 Lactic Acid 1.3 mmol/L (0.4-2.0) 05/30/19 22:15 Calcium 7.7 mg/dL (8.5-10.1) L 06/12/19 07:30 Total Bilirubin 0.4 mg/dL (0.2-1) 06/12/19 07:30 AST 25 U/L (15-37) 06/12/19 07:30 ALT 18 U/L (13-61) 06/12/19 07:30 Alkaline Phosphatase 373 U/L (45-117) H 06/12/19 07:30 Creatine Kinase 188 U/L (26-192) 05/30/19 19:55 Creatine Kinase Index 1.1 % (0.0-5.0) 05/30/19 19:55 CK-MB (CK-2) 2.2 ng/mL (0.5-3.6) 05/30/19 19:55 Troponin I 0.04 ng/ml (0.00-0.05) 06/05/19 12:15 Total Protein 5.6 g/dl (6.4-8.2) L 06/12/19 07:30 Albumin 2.2 g/dl (3.4-5.0) L 06/12/19 07:30 TSH 7.96 uIU/ml (0.358-3.74) H 05/30/19 19:55 Free T4 1.01 ng/dl (0.76-1.46) 05/30/19 19:55 Current Medications Generic Name Dose Route Start Last Admin Trade Name Freq PRN Reason Stop Dose Admin Acetaminophen 650 mg 06/04/19 12:02 06/13/19 03:08 Tylenol - PO 650 mg Q6H PRN Administration PAIN Cyclobenzaprine HCl 5 mg 06/04/19 12:14 06/11/19 23:10 Cyclobenzaprine Hcl PO 5 mg BID PRN Administration BACK PAIN Furosemide 20 mg 06/11/19 10:45 06/12/19 10:40 Lasix - PO 20 mg DAILY [facility] Administration Guaifenesin 10 ml 06/06/19 21:11 06/12/19 22:00 Robitussin Dm - PO 10 ml Q6H PRN Administration COUGH Insulin Aspart 1 vial 06/12/19 11:00 06/13/19 06:42 Novolog Vial Sliding Scale - SQ 1 units TIDAC [facility] Administration Protocol Insulin Detemir 2 units 06/11/19 07:00 06/13/19 06:41 Levemir Vial SQ 2 units DAILY@0700 [facility] Administration Levothyroxine Sodium 62.5 mcg 06/02/19 07:00 06/13/19 06:41 Synthroid - PO 62.5 mcg DAILY@0700 [facility] Administration Lidocaine 2 patch 06/01/19 16:00 06/12/19 10:46 Lidoderm Patch - TP Not Given DAILY [facility] Metoprolol Succinate 25 mg 06/05/19 10:00 06/12/19 10:39 Toprol Xl - PO 25 mg DAILY [facility] Administration Miscellaneous 1 each 06/01/19 22:00 06/12/19 22:01 Lidoderm Patch Removal MC Not Given DAILY@2200 [facility] Oxycodone HCl 5 mg 06/09/19 10:01 06/12/19 21:59 Roxicodone - PO 5 mg BID PRN Administration PAIN SCALE 6-10 Pantoprazole Sodium 40 mg 06/11/19 10:00 06/12/19 10:39 Protonix - PO 40 mg DAILY [facility] Administration AP Episode of hypoglycemia DM S/P Fall Hypothyroidism TSH 7.96 HTN HLD Gastric polyp: EGD report noted. Monitor BGM QACHS Glucacon 1mg IM stat when FS <60 or if pt has AMS Juice if FS is <100 Levemir 2 units daily in morning. Novolog Ss coverage snack of 120 KCal around 3 PM Change Insulin dose as necessary depending upon the blood sugar readings. Pt may go home on current Insulin regimen. LT4 62.5mcg QD Will F/U
[2019-06-13] MEDS: PANTOPRAZOLE 40 MG TABLET (FP) PO SCH (12:00)
[2019-06-13] MEDS: metoPROLOL SUCCINATE 25 MG TAB.SR.24H (FP) PO SCH (12:00)
[2019-06-13] MEDS: FUROSEMIDE 20 MG TABLET (FP) PO SCH (12:00)
[2019-06-13] MEDS: LIDOCAINE 5% TOPICAL PATCH TP SCH (12:01)
[2019-06-13] MEDS: oxyCODONE HCL 5 MG TABLET PO PRN (12:01)
--- NOTE | 2019-06-13 12:01 | PN ---
Progress Note (short form) - Note Progress Note: pt seen/examined comfortable no new issues feels ok Vital Signs Temp 97.8 F 06/13/19 06:00 Pulse 80 06/13/19 06:00 Resp 20 06/13/19 06:00 BP 143/73 06/13/19 06:00 Pulse Ox 95 06/12/19 21:00 Intake & Output 06/12/19 06/13/19 06/13/19 23:59 11:59 23:59 Intake Total 1540 240 Balance 1540 240 Intake: Oral 1540 240 Other: Voiding Method Incontinent Incontinent # Unmeasured Voids Void 1 1 Bowel Movement No # Bowel Movements 1 Active Medications Acetaminophen (Tylenol -) 650 mg PO Q6H PRN PRN Reason: PAIN Last Admin: 06/13/19 03:08 Dose: 650 mg Cyclobenzaprine HCl (Cyclobenzaprine Hcl) 5 mg PO BID PRN PRN Reason: BACK PAIN Last Admin: 06/11/19 23:10 Dose: 5 mg Furosemide (Lasix -) 20 mg PO DAILY [facility] Last Admin: 06/12/19 10:40 Dose: 20 mg Guaifenesin (Robitussin Dm -) 10 ml PO Q6H PRN PRN Reason: COUGH Last Admin: 06/12/19 22:00 Dose: 10 ml Insulin Aspart (Novolog Vial Sliding Scale -) 1 vial SQ [facility]; Protocol Last Admin: 06/13/19 06:42 Dose: 1 units Insulin Detemir (Levemir Vial) 2 units SQ DAILY@0700 [facility] Last Admin: 06/13/19 06:41 Dose: 2 units Levothyroxine Sodium (Synthroid -) 62.5 mcg PO DAILY@0700 [facility] Last Admin: 06/13/19 06:41 Dose: 62.5 mcg Lidocaine (Lidoderm Patch -) 2 patch TP DAILY [facility] Last Admin: 06/12/19 10:46 Dose: Not Given Metoprolol Succinate (Toprol Xl -) 25 mg PO DAILY [facility] Last Admin: 06/12/19 10:39 Dose: 25 mg Miscellaneous (Lidoderm Patch Removal) 1 each MC DAILY@2200 [facility] Last Admin: 06/12/19 22:01 Dose: Not Given Oxycodone HCl (Roxicodone -) 5 mg PO BID PRN PRN Reason: PAIN SCALE 6-10 Last Admin: 06/12/19 21:59 Dose: 5 mg Pantoprazole Sodium (Protonix -) 40 mg PO DAILY [facility] Last Admin: 06/12/19 10:39 Dose: 40 mg CBC, BMP 06/12/19 07:30 06/12/19 07:30 Physical Exam. Constitutional: Yes: No Distress, , obese. comfortable. Eyes: Yes: Conjunctiva Clear, Other (pale) Neck: Yes: Supple. no jvd . Cardiovascular: Yes: Regular Rate and Rhythm Respiratory: Yes: Diminished Gastrointestinal: Yes: Soft, non tender.bs + Edema: LLE: 1+, RLE: 1+-- chronic skin changes -- Psychiatric: Yes: Alert ASSESSMENT/PLAN: stable awaiting insurance authorization--- to go to rehabilitation See detailed discharge --summary Will continue to monitor----while in the hospital continue same No new issues Problem List - Problems (1) Anemia Code(s): D64.9 - ANEMIA, UNSPECIFIED Qualifiers: (2) Fever in adult Code(s): R50.9 - FEVER, UNSPECIFIED (3) History of fall Code(s): Z91.81 - HISTORY OF FALLING (4) Hyperlipemia Code(s): E78.5 - HYPERLIPIDEMIA, UNSPECIFIED (5) Uncontrolled diabetes mellitus Code(s): E11.65 - TYPE 2 DIABETES MELLITUS WITH HYPERGLYCEMIA (6) Urinary tract infection Code(s): N39.0 - URINARY TRACT INFECTION, SITE NOT SPECIFIED Qualifiers: (7) Acute renal failure superimposed on chronic kidney disease Code(s): N17.9 - ACUTE KIDNEY FAILURE, UNSPECIFIED; N18.9 - CHRONIC KIDNEY DISEASE, UNSPECIFIED
[2019-06-13] MEDS: LIDOCAINE PATCH REMOVAL MC SCH (21:56)
[2019-06-14] MEDS: oxyCODONE HCL 5 MG TABLET PO PRN ×2 (00:11→22:27)
[2019-06-14] MEDS: INSULIN (LEVEMIR) 100 UNITS/ML UNITS SQ SCH (06:15)
[2019-06-14] MEDS: INSULIN SLIDING SCALE (NOVOLOG) 1 VIAL SQ SCH ×3 (06:16→18:19)
[2019-06-14] MEDS: LEVOTHYROXINE NA 25 MCG TABLET (FP) PO SCH (06:17)
[2019-06-14] MEDS: ACETAMINOPHEN 325 MG TABLET (FP) PO PRN ×2 (06:19→14:40)
--- NOTE | 2019-06-14 09:45 | PN ---
Progress Note (short form) - Note Progress Note: Vital Signs Temp 98.6 F 06/14/19 06:00 Pulse 65 06/14/19 06:00 Resp 16 06/14/19 06:00 BP 156/83 06/14/19 06:00 Pulse Ox 95 06/13/19 21:00 Intake & Output 06/13/19 06/13/19 06/14/19 11:59 23:59 11:59 Intake Total 240 1190 Balance 240 1190 Intake: IV 30 Saline lock 30 Oral 240 1160 Other: Voiding Method Bedpan Bedpan # Unmeasured Voids Void 1 1 1 Bowel Movement Yes Yes # Bowel Movements 1 1 Active Medications Acetaminophen (Tylenol -) 650 mg PO Q6H PRN PRN Reason: PAIN Last Admin: 06/14/19 06:19 Dose: 650 mg Cyclobenzaprine HCl (Cyclobenzaprine Hcl) 5 mg PO BID PRN PRN Reason: BACK PAIN Last Admin: 06/11/19 23:10 Dose: 5 mg Furosemide (Lasix -) 20 mg PO DAILY [facility] Last Admin: 06/13/19 12:00 Dose: 20 mg Guaifenesin (Robitussin Dm -) 10 ml PO Q6H PRN PRN Reason: COUGH Last Admin: 06/12/19 22:00 Dose: 10 ml Insulin Aspart (Novolog Vial Sliding Scale -) 1 vial SQ [facility]; Protocol Last Admin: 06/14/19 06:16 Dose: 1 units Insulin Detemir (Levemir Vial) 2 units SQ DAILY@0700 [facility] Last Admin: 06/14/19 06:15 Dose: 2 units Levothyroxine Sodium (Synthroid -) 62.5 mcg PO DAILY@0700 [facility] Last Admin: 06/14/19 06:17 Dose: 62.5 mcg Lidocaine (Lidoderm Patch -) 2 patch TP DAILY [facility] Last Admin: 06/13/19 12:01 Dose: 2 patch Metoprolol Succinate (Toprol Xl -) 25 mg PO DAILY [facility] Last Admin: 06/13/19 12:00 Dose: 25 mg Miscellaneous (Lidoderm Patch Removal) 1 each MC DAILY@2200 [facility] Last Admin: 06/13/19 21:56 Dose: 1 each Oxycodone HCl (Roxicodone -) 5 mg PO BID PRN PRN Reason: PAIN SCALE 6-10 Last Admin: 06/14/19 00:11 Dose: 5 mg Pantoprazole Sodium (Protonix -) 40 mg PO DAILY [facility] Last Admin: 06/13/19 12:00 Dose: 40 mg CBC, BMP 06/12/19 07:30 06/12/19 07:30 Physical Exam. Constitutional: Yes: No Distress, , obese. comfortable. Eyes: Yes: Conjunctiva Clear, Other (pale) Neck: Yes: Supple. no jvd . Cardiovascular: Yes: Regular Rate and Rhythm Respiratory: Yes: Diminished Gastrointestinal: Yes: Soft, non tender.bs + Edema: LLE: 1+, RLE: 1+-- chronic skin changes -- Psychiatric: Yes: Alert ASSESSMENT/PLAN: stable awaiting insurance authorization--- to go to rehabilitation See detailed discharge --summary Will continue to monitor----while in the hospital continue same No new issues. Will follow D/W RN Problem List - Problems (1) Anemia Code(s): D64.9 - ANEMIA, UNSPECIFIED Qualifiers: (2) Fever in adult Code(s): R50.9 - FEVER, UNSPECIFIED (3) History of fall Code(s): Z91.81 - HISTORY OF FALLING (4) Hyperlipemia Code(s): E78.5 - HYPERLIPIDEMIA, UNSPECIFIED (5) Uncontrolled diabetes mellitus Code(s): E11.65 - TYPE 2 DIABETES MELLITUS WITH HYPERGLYCEMIA (6) Urinary tract infection Code(s): N39.0 - URINARY TRACT INFECTION, SITE NOT SPECIFIED Qualifiers: (7) Acute renal failure superimposed on chronic kidney disease Code(s): N17.9 - ACUTE KIDNEY FAILURE, UNSPECIFIED; N18.9 - CHRONIC KIDNEY DISEASE, UNSPECIFIED
[2019-06-14] MEDS: metoPROLOL SUCCINATE 25 MG TAB.SR.24H (FP) PO SCH (10:32)
[2019-06-14] MEDS: PANTOPRAZOLE 40 MG TABLET (FP) PO SCH (10:32)
[2019-06-14] MEDS: FUROSEMIDE 20 MG TABLET (FP) PO SCH (10:32)
[2019-06-14] MEDS: LIDOCAINE 5% TOPICAL PATCH TP SCH (10:32)
[2019-06-14] MEDS: CYCLOBENZAPRINE HCL 5 MG TABLET PO PRN ×2 (14:42→23:59)
[2019-06-14] MEDS: LIDOCAINE PATCH REMOVAL MC SCH (22:28)
[2019-06-15] MEDS: LEVOTHYROXINE NA 25 MCG TABLET (FP) PO SCH (06:57)
[2019-06-15] MEDS: INSULIN (LEVEMIR) 100 UNITS/ML UNITS SQ SCH (06:58)
[2019-06-15] MEDS: INSULIN SLIDING SCALE (NOVOLOG) 1 VIAL SQ SCH ×3 (06:59→17:43)
--- NOTE | 2019-06-15 10:17 | PN ---
Progress Note (short form) - Note Progress Note: pt seen/ examined. no new issues Comfortable Vital Signs Temp 98.2 F 06/15/19 06:00 Pulse 72 06/15/19 06:00 Resp 18 06/15/19 06:00 BP 139/75 06/15/19 06:00 Pulse Ox 97 06/14/19 21:00 Intake & Output 06/14/19 06/14/19 06/15/19 11:59 23:59 11:59 Intake Total 1150 Balance 1150 Intake: IV 0 Saline lock 0 Oral 840 Oral Supplement 310 Other: Voiding Method Incontinent Incontinent # Unmeasured Voids Void 1 2 1 Bowel Movement Yes Yes Yes # Bowel Movements 1 1 1 Active Medications Acetaminophen (Tylenol -) 650 mg PO Q6H PRN PRN Reason: PAIN Last Admin: 06/14/19 14:40 Dose: 650 mg Cyclobenzaprine HCl (Cyclobenzaprine Hcl) 5 mg PO BID PRN PRN Reason: BACK PAIN Last Admin: 06/14/19 23:59 Dose: 5 mg Furosemide (Lasix -) 20 mg PO DAILY [facility] Last Admin: 06/14/19 10:32 Dose: 20 mg Guaifenesin (Robitussin Dm -) 10 ml PO Q6H PRN PRN Reason: COUGH Last Admin: 06/12/19 22:00 Dose: 10 ml Insulin Aspart (Novolog Vial Sliding Scale -) [facility]; Protocol Last Admin: 06/15/19 06:59 Dose: 3 units Insulin Detemir (Levemir Vial) 2 units SQ DAILY@0700 [facility] Last Admin: 06/15/19 06:58 Dose: 2 units Levothyroxine Sodium (Synthroid -) 62.5 mcg PO DAILY@0700 [facility] Last Admin: 06/15/19 06:57 Dose: 62.5 mcg Lidocaine (Lidoderm Patch -) 2 patch TP DAILY [facility] Last Admin: 06/14/19 10:32 Dose: 2 patch Metoprolol Succinate (Toprol Xl -) 25 mg PO DAILY [facility] Last Admin: 06/14/19 10:32 Dose: 25 mg Miscellaneous (Lidoderm Patch Removal) 1 each MC DAILY@2200 [facility] Last Admin: 06/14/19 22:28 Dose: 1 each Oxycodone HCl (Roxicodone -) 5 mg PO BID PRN PRN Reason: PAIN LEVEL 6-10 Last Admin: 06/14/19 22:27 Dose: 5 mg Pantoprazole Sodium (Protonix -) 40 mg PO DAILY [facility] Last Admin: 06/14/19 10:32 Dose: 40 mg CBC, BMP 06/12/19 07:30 06/12/19 07:30 Physical Exam. Constitutional: Yes: No Distress, , obese. comfortable. Eyes: Yes: Conjunctiva Clear, Other (pale) Neck: Yes: Supple. no jvd . Cardiovascular: Yes: Regular Rate and Rhythm Respiratory: Yes: Diminished Gastrointestinal: Yes: Soft, non tender.bs + Edema: LLE: 1+, RLE: 1+-- chronic skin changes -- Psychiatric: Yes: Alert ASSESSMENT/PLAN: stable awaiting insurance authorization--- to go to rehabilitation See detailed discharge --summary Will continue to monitor----while in the hospital continue same No new issues. Will follow Problem List - Problems (1) Anemia Code(s): D64.9 - ANEMIA, UNSPECIFIED Qualifiers: (2) Fever in adult Code(s): R50.9 - FEVER, UNSPECIFIED (3) History of fall Code(s): Z91.81 - HISTORY OF FALLING (4) Hyperlipemia Code(s): E78.5 - HYPERLIPIDEMIA, UNSPECIFIED (5) Uncontrolled diabetes mellitus Code(s): E11.65 - TYPE 2 DIABETES MELLITUS WITH HYPERGLYCEMIA (6) Urinary tract infection Code(s): N39.0 - URINARY TRACT INFECTION, SITE NOT SPECIFIED Qualifiers: (7) Acute renal failure superimposed on chronic kidney disease Code(s): N17.9 - ACUTE KIDNEY FAILURE, UNSPECIFIED; N18.9 - CHRONIC KIDNEY DISEASE, UNSPECIFIED
[2019-06-15] MEDS: metoPROLOL SUCCINATE 25 MG TAB.SR.24H (FP) PO SCH (11:25)
[2019-06-15] MEDS: CYCLOBENZAPRINE HCL 5 MG TABLET PO PRN (11:25)
[2019-06-15] MEDS: oxyCODONE HCL 5 MG TABLET PO PRN (11:25)
[2019-06-15] MEDS: FUROSEMIDE 20 MG TABLET (FP) PO SCH (11:26)
[2019-06-15] MEDS: LIDOCAINE 5% TOPICAL PATCH TP SCH (11:26)
[2019-06-15] MEDS: PANTOPRAZOLE 40 MG TABLET (FP) PO SCH (11:26)
[2019-06-15] MEDS ORDERED: INSULIN (NOVOLOG) ASPART 100 UNITS/ML 10ML VIAL ONE (11:34)
[2019-06-15] MEDS: ACETAMINOPHEN 325 MG TABLET (FP) PO PRN (17:37)
[2019-06-15] MEDS: LIDOCAINE PATCH REMOVAL MC SCH (21:23)
[2019-06-16] MEDS: LEVOTHYROXINE NA 25 MCG TABLET (FP) PO SCH (07:17)
[2019-06-16] MEDS: INSULIN SLIDING SCALE (NOVOLOG) 1 VIAL SQ SCH ×2 (07:18→12:52)
[2019-06-16] MEDS: INSULIN (LEVEMIR) 100 UNITS/ML UNITS SQ SCH (07:20)
--- NOTE | 2019-06-16 10:00 | PN ---
Progress Note (short form) - Note Progress Note: pt seen/ examined comfortable no new issues. Vital Signs Temp 97.4 F L 06/16/19 07:00 Pulse 82 06/16/19 07:00 Resp 20 06/16/19 07:00 BP 159/84 06/16/19 07:00 Pulse Ox 97 06/15/19 21:00 Intake & Output 06/15/19 06/15/19 06/16/19 11:59 23:59 11:59 Intake Total 770 Balance 770 Intake: IV 0 Saline lock 0 IVPB 50 Oral 480 Packed Cells 240 Other: Voiding Method Incontinent Diaper # Unmeasured Voids Void 1 2 1 Bowel Movement Yes No # Bowel Movements 1 1 Active Medications Acetaminophen (Tylenol -) 650 mg PO Q6H PRN PRN Reason: PAIN Last Admin: 06/15/19 17:37 Dose: 650 mg Cyclobenzaprine HCl (Cyclobenzaprine Hcl) 5 mg PO BID PRN PRN Reason: BACK PAIN Last Admin: 06/15/19 11:25 Dose: 5 mg Furosemide (Lasix -) 20 mg PO DAILY [facility] Last Admin: 06/15/19 11:26 Dose: 20 mg Guaifenesin (Robitussin Dm -) 10 ml PO Q6H PRN PRN Reason: COUGH Last Admin: 06/12/19 22:00 Dose: 10 ml Insulin Aspart (Novolog Vial Sliding Scale -) [facility]; Protocol Last Admin: 06/16/19 07:18 Dose: 1 units Insulin Detemir (Levemir Vial) 2 units SQ DAILY@0700 [facility] Last Admin: 06/16/19 07:20 Dose: 2 units Levothyroxine Sodium (Synthroid -) 62.5 mcg PO DAILY@0700 [facility] Last Admin: 06/16/19 07:17 Dose: 62.5 mcg Lidocaine (Lidoderm Patch -) 2 patch TP DAILY [facility] Last Admin: 06/15/19 11:26 Dose: Not Given Metoprolol Succinate (Toprol Xl -) 25 mg PO DAILY [facility] Last Admin: 06/15/19 11:25 Dose: 25 mg Miscellaneous (Lidoderm Patch Removal) 1 each MC DAILY@2200 [facility] Last Admin: 06/15/19 21:23 Dose: Not Given Oxycodone HCl (Roxicodone -) 5 mg PO BID PRN PRN Reason: PAIN LEVEL 6-10 Last Admin: 06/15/19 11:25 Dose: 5 mg Pantoprazole Sodium (Protonix -) 40 mg PO DAILY [facility] Last Admin: 06/15/19 11:26 Dose: 40 mg CBC, BMP 06/12/19 07:30 06/12/19 07:30 Physical Exam. Constitutional: Yes: No Distress, , obese. comfortable. Eyes: Yes: Conjunctiva Clear, Other (pale) Neck: Yes: Supple. no jvd . Cardiovascular: Yes: Regular Rate and Rhythm Respiratory: Yes: Diminished Gastrointestinal: Yes: Soft, non tender.bs + Edema: LLE: 1+, RLE: 1+-- chronic skin changes -- Psychiatric: Yes: Alert ASSESSMENT/PLAN: stable awaiting insurance authorization--- to go to rehabilitation See detailed discharge --summary Will continue to monitor----while in the hospital continue same No new issues. Will follow Problem List - Problems (1) Anemia Code(s): D64.9 - ANEMIA, UNSPECIFIED Qualifiers: (2) Fever in adult Code(s): R50.9 - FEVER, UNSPECIFIED (3) History of fall Code(s): Z91.81 - HISTORY OF FALLING (4) Hyperlipemia Code(s): E78.5 - HYPERLIPIDEMIA, UNSPECIFIED (5) Uncontrolled diabetes mellitus Code(s): E11.65 - TYPE 2 DIABETES MELLITUS WITH HYPERGLYCEMIA (6) Urinary tract infection Code(s): N39.0 - URINARY TRACT INFECTION, SITE NOT SPECIFIED Qualifiers: (7) Acute renal failure superimposed on chronic kidney disease Code(s): N17.9 - ACUTE KIDNEY FAILURE, UNSPECIFIED; N18.9 - CHRONIC KIDNEY DISEASE, UNSPECIFIED
[2019-06-16] MEDS: FUROSEMIDE 20 MG TABLET (FP) PO SCH (10:24)
[2019-06-16] MEDS: PANTOPRAZOLE 40 MG TABLET (FP) PO SCH (10:24)
[2019-06-16] MEDS: metoPROLOL SUCCINATE 25 MG TAB.SR.24H (FP) PO SCH (10:24)
[2019-06-16] MEDS: CYCLOBENZAPRINE HCL 5 MG TABLET PO PRN (10:25)
[2019-06-16] MEDS: oxyCODONE HCL 5 MG TABLET PO PRN ×2 (10:25→12:56)
[2019-06-16] MEDS: LIDOCAINE 5% TOPICAL PATCH TP SCH (10:42)
--- NOTE | 2019-06-16 14:17 | PN ---
Progress Note (short form) - Note Progress Note: No complaints NO hypos Vital Signs Period Temp Pulse Resp BP Sys/Sibley Pulse Ox Last 24 Hr 97.4 F-98.4 F 75-82 18-20 140-159/77-87 97-97 PE: AOx3 Neck: supple, No JVD HEENT: EOMI Lungs: CTA CVS: S1S2 Abd: Benign Ext: left arm lymphedema CMP Sodium 139 mmol/L (136-145) 06/12/19 07:30 Potassium 5.3 mmol/L (3.5-5.1) H 06/12/19 07:30 Chloride 112 mmol/L (98-107) H 06/12/19 07:30 Carbon Dioxide 19 mmol/L (21-32) L 06/12/19 07:30 Anion Gap 9 MMOL/L (8-16) 06/12/19 07:30 BUN 40.6 mg/dL (7-18) H 06/12/19 07:30 Creatinine 1.6 mg/dL (0.55-1.3) H 06/12/19 07:30 Est GFR (CKD-EPI)AfAm 42.20 06/12/19 07:30 Est GFR (CKD-EPI)NonAf 36.41 06/12/19 07:30 POC Glucometer 288 UNITS (80-120) 06/16/19 12:17 Random Glucose 100 mg/dL (74-106) 06/12/19 07:30 Hemoglobin A1c % 6.3 % (4.2-6.3) 06/01/19 05:40 Lactic Acid 1.3 mmol/L (0.4-2.0) 05/30/19 22:15 Calcium 7.7 mg/dL (8.5-10.1) L 06/12/19 07:30 Total Bilirubin 0.4 mg/dL (0.2-1) 06/12/19 07:30 AST 25 U/L (15-37) 06/12/19 07:30 ALT 18 U/L (13-61) 06/12/19 07:30 Alkaline Phosphatase 373 U/L (45-117) H 06/12/19 07:30 Creatine Kinase 188 U/L (26-192) 05/30/19 19:55 Creatine Kinase Index 1.1 % (0.0-5.0) 05/30/19 19:55 CK-MB (CK-2) 2.2 ng/mL (0.5-3.6) 05/30/19 19:55 Troponin I 0.04 ng/ml (0.00-0.05) 06/05/19 12:15 Total Protein 5.6 g/dl (6.4-8.2) L 06/12/19 07:30 Albumin 2.2 g/dl (3.4-5.0) L 06/12/19 07:30 TSH 7.96 uIU/ml (0.358-3.74) H 05/30/19 19:55 Free T4 1.01 ng/dl (0.76-1.46) 05/30/19 19:55 Current Medications Generic Name Dose Route Start Last Admin Trade Name Freq PRN Reason Stop Dose Admin Acetaminophen 650 mg 06/04/19 12:02 06/15/19 17:37 Tylenol - PO 650 mg Q6H PRN Administration PAIN Cyclobenzaprine HCl 5 mg 06/04/19 12:14 06/16/19 10:25 Cyclobenzaprine Hcl PO 5 mg BID PRN Administration BACK PAIN Furosemide 20 mg 06/11/19 10:45 06/16/19 10:24 Lasix - PO 20 mg DAILY [facility] Administration Guaifenesin 10 ml 06/06/19 21:11 06/12/19 22:00 Robitussin Dm - PO 10 ml Q6H PRN Administration COUGH Insulin Aspart 1 vial 06/12/19 11:00 06/16/19 12:52 Novolog Vial Sliding Scale - SQ 2 units [facility] Administration Protocol Insulin Detemir 2 units 06/11/19 07:00 06/16/19 07:20 Levemir Vial SQ 2 units DAILY@0700 [facility] Administration Levothyroxine Sodium 62.5 mcg 06/02/19 07:00 06/16/19 07:17 Synthroid - PO 62.5 mcg DAILY@0700 [facility] Administration Lidocaine 2 patch 06/01/19 16:00 06/16/19 10:42 Lidoderm Patch - TP Not Given DAILY [facility] Metoprolol Succinate 25 mg 06/05/19 10:00 06/16/19 10:24 Toprol Xl - PO 25 mg DAILY [facility] Administration Miscellaneous 1 each 06/01/19 22:00 06/15/19 21:23 Lidoderm Patch Removal MC Not Given DAILY@2200 [facility] Oxycodone HCl 5 mg 06/14/19 21:24 06/16/19 12:56 Roxicodone - PO 5 mg BID PRN Administration PAIN LEVEL 6-10 Pantoprazole Sodium 40 mg 06/11/19 10:00 06/16/19 10:24 Protonix - PO 40 mg DAILY [facility] Administration AP Episode of hypoglycemia DM S/P Fall Hypothyroidism TSH 7.96 HTN HLD Gastric polyp: EGD report noted. Monitor BGM QACHS Glucacon 1mg IM stat when FS <60 or if pt has AMS Juice if FS is <100 Levemir 2 units daily in morning. Will switch to Tresiba if pt's family members brings it to the hospital Novolog Ss coverage snack of 120 KCal around 3 PM Change Insulin dose as necessary depending upon the blood sugar readings. Pt may go home on current Insulin regimen. LT4 62.5mcg QD Will F/U
[2019-06-16 14:38] VITALS: BP 154/75; PULSE 88; TEMP 98.4
== END 2019-06-16 14:49 | DRG 872 ==
LOC: JER 19:20 → JERBED 21:37 → J4W 05-31 00:35 → J5S 06-04 12:03
PROVIDERS: ADMIT Internal Medicine; ATTEND Internal Medicine
PROC: 30233N1 Transfusion of Nonautologous Red Blood Cells into Peripheral Vein, Percutaneous Approach (ICD-10-PCS; principal; 2019-05-31)
PROC: 0DB68ZX Excision of Stomach, Via Natural or Artificial Opening Endoscopic, Diagnostic (ICD-10-PCS; 2019-06-02)
PROC: 0DB58ZX Excision of Esophagus, Via Natural or Artificial Opening Endoscopic, Diagnostic (ICD-10-PCS; 2019-06-02)
DX: A41.9 Sepsis, unspecified organism (principal); N39.0 Urinary tract infection, site not specified; I13.0 Hypertensive heart and chronic kidney disease with heart failure and stage 1 through stage 4 chronic kidney disease, or unspecified chronic kidney disease; E87.1 Hypo-osmolality and hyponatremia; N17.9 Acute kidney failure, unspecified; E87.2 Acidosis; K22.10 Ulcer of esophagus without bleeding; N18.3 Chronic kidney disease, stage 3 (moderate); I50.9 Heart failure, unspecified; E11.21 Type 2 diabetes mellitus with diabetic nephropathy; E78.5 Hyperlipidemia, unspecified; E03.9 Hypothyroidism, unspecified; E13.649 Other specified diabetes mellitus with hypoglycemia without coma; K31.7 Polyp of stomach and duodenum; D64.9 Anemia, unspecified; R50.9 Fever, unspecified; E11.65 Type 2 diabetes mellitus with hyperglycemia; Z85.3 Personal history of malignant neoplasm of breast; E66.9 Obesity, unspecified; Z68.30 Body mass index [BMI] 30.0-30.9, adult; D69.6 Thrombocytopenia, unspecified; K29.50 Unspecified chronic gastritis without bleeding; K20.9 Esophagitis, unspecified
CPT/HCPCS: 36415; 36430; 36511; 36600; 70450-TC; 71045-TC-FY; 72100-TC-FY; 73502-TC-LT-FY; 80048; 80053; 81003; 82009; 82272; 82375; 82550; 82553; 82803; 82962; 83036; 83050; 83605; 84439; 84443; 84484; 85025; 85610; 86850; 86900; 86901; 86922; 87040; 87077; 87081; 87086; 88305-TC; 93005; 93010; 97116-GP; 97162-GP; 99282-25; J0131; J7030; P9038; P9058

== ENCOUNTER 2019-08-02 18:42 | Inpatient (IN) | payer OTHER ==
--- NOTE | 2019-08-02 19:31 | PDOC ---
History of Present Illness - General Chief Complaint: Pain Stated Complaint: ABDOMINAL PAIN Past History - Past Medical History Allergies/Adverse Reactions: Allergies Allergy/AdvReac Type Severity Reaction Status Date / Time Sulfa (Sulfonamide Allergy Intermediate Hives Verified 08/02/19 19:29 Antibiotics) [Sulfa(Sulfonamide Antibiotics)] terbinafine HCl Allergy Intermediate Rash Verified 08/02/19 19:29 [From Lamisil] Home Medications: Ambulatory Orders Metoprolol Succinate [Toprol XL -] 25 mg PO DAILY 07/19/14 Acetaminophen [Tylenol .Regular Strength -] 650 mg PO Q6H PRN tablet 04/23/19 Triamcinolone 0.1% Cream [Aristocort 0.1% Cream -] 1 applic TP BID applic 04/23 Cyclobenzaprine HCl 5 mg PO BID PRN #60 tablet 06/09/19 Levothyroxine [Synthroid -] 62.5 mcg PO DAILY@0700 30 Days #30 tablet 06/09/19 Oxycodone HCl 5 mg PO BID PRN #30 tablet MDD 2 06/11/19 Pantoprazole Sodium [Protonix -] 40 mg PO DAILY tablet.ec 06/11/19 Albuterol 0.083% Nebulizer Felicitas [Ventolin 0.083% Nebulizer Soln -] 1 neb NEB Q6H PRN 08/02/19 Bismuth Tribromoph/Petrolatum [Xeroform Petrolatum Dress] 1 each TP BID Calcium Carbonate [Oyster Shell Calcium] 500 mg PO BID 08/02/19 Cyclobenzaprine HCl [Flexeril -] 5 mg PO BID PRN 08/02/19 Docusate Sodium [Colace] 300 mg PO HS 08/02/19 Ergocalciferol (Vitamin D2) [Vitamin D2] 50,000 unit PO WEEKLY 08/02/19 Furosemide [Lasix -] 40 mg PO BID 08/02/19 Guaifenesin Dm [Robitussin Dm -] 10 ml PO Q4H PRN 08/02/19 Insulin Glargine,Hum.rec.anlog [Basaglar Kwikpen U-100] 3 unit SQ Q12H 08/02/19 Insulin Lispro [Humalog] 100 unit SQ AC 08/02/19 Lidocaine [Aspercreme] 1 each TP DAILY 08/02/19 Sennosides [Senna] 17.2 mg PO HS 08/02/19 Sodium Bicarbonate - 650 mg PO AC 08/02/19 Anemia: Yes Asthma: No Cancer: Yes (MAY 2010 LEFT BREAST CA) Cardiac Disorders: No CVA: No COPD: No CHF: Yes DVT: No Dementia: No Diabetes: Yes (IDDM MANY YEARS) Dialysis: No GI Disorders: Yes (polyps) Disorders: Yes (kidney stones, stent left) HTN: Yes (HX BORDERLINE, NO MEDS) Hypercholesterolemia: No Kidney Stones: No Liver Disease: Yes (fatty liver) Psychiatric Problems: No Seizures: No Thyroid Disease: Yes Lung CA: No - Surgical History Appendectomy: Yes - Immunization History Td Vaccination: No TDAP Vaccination: No Immunization Up to Date: Yes - Psycho Social/Smoking Cessation Hx Smoking History: Never smoked Have you smoked in the past 12 months: No Number of Cigarettes Smoked Daily: 0 Cigars Per Day: 0 Hx Alcohol Use: Yes (quit March 2019) Drug/Substance Use Hx: No Substance Use Type: None Hx Substance Use Treatment: No *Physical Exam - Vital Signs Last Vital Signs Temp Pulse Resp BP Pulse Ox 98 F 84 18 142/72 99 08/02/19 19:10 08/02/19 19:10 08/02/19 19:10 08/02/19 19:10 08/02/19 19:10 ED Treatment Course - LABORATORY CBC & Chemistry Diagram: 08/02/19 21:00 08/02/19 21:00 Medical Decision Making - Medical Decision Making HPI: 53yo F with PMH of CKD stage 3, IDDM, diabetic nephropathy, HLD, HLD, CHF Breast Ca (s/p b/l mastectomy), scleroderma, hypothyroidism, CHF, and psoriasis sent by her GI doctor for evaluation of intermittent abdominal pain. Patient states she saw her GI doctor today for follow-up on a polyp found on EGD . She has had abdominal pain for the past five to six weeks and is unable to say if this pain is associated with or separate from her polyp pain. Pain is described as "burning," "stabbing," "like being hit with a baseball bat," and "pressure." Patient took tylenol and percocet (which she takes for back pain) yesterday with some relief of pain. Worsens with movement. Pain is currently rated 6/10. Reports intermittent nausea, but no vomiting. Last bowel movement was this morning and was a small formed stool, unknown color. Bowel movement yesterday was yellow. Abdominal surgery history includes appendectomy and c- section. Denies urinary symptoms; has urinary incontinence at baseline. No fevers or chills, but feels cold. PCP: Dr. Seymour GI: Dr. Thomas Nephro: Dr. Guillory Onc: Dr. Benson ROS: Constitutional: no fever, +feels cold HEENT: no throat pain, no dysphagia Cardiovascular: no chest pain, no palpitations Respiratory: no cough, no shortness of breath Gastrointestinal: +abdominal pain, +nausea Genitourinary: no dysuria, no hematuria Musculoskeletal: no myalgia, no arthralgia Skin: no rash, no itching Neurologic: +headache, no weakness PE: General: Awake, alert, and fully oriented, in no acute distress Head: No signs of trauma Eyes: EOMI, sclera anicteric ENT: Moist mucus membranes Neck: Normal ROM, supple Lungs: Lungs clear, Normal breath sounds Cardio: Regular rhythm, S1 and S2 present Abdomen: Diffuse tenderness to light palpation most focal to epigastrium, + guarding, +rebound, no masses Extremities: Normal range of motion, Distal pulses present SKIN: Warm, Dry, normal turgor; psoriatic rash extensive on trunk, back, and BLE ; skin breakdown on right ankle; area that appears like cellulitis on lower abdomen skinfold Neurologic: Cranial nerves II through XII grossly intact. Normal speech ED Course/MDM: DDX including but not limited to pancreatitis, acute cholecystitis, mesenteric ischemia, gastric ulcer, gastritis, gastroenteritis 08/02/19 19:31 Patient difficult stick; US-guided IV placed by me in Right AC blood work sent 08/02/19 21:03 EKG: rate 81, QTc 462, NSR. low voltage also seen in previous EKG Reporting some relief of pain, now 02/1008/02/19 21:47 CBC WBC 4.3 K/mm3 (4.0-10.0) 08/02/19 21:00 Corrected WBC (auto) Cancelled 08/02/19 20:30 RBC 3.37 M/mm3 (3.60-5.2) L 08/02/19 21:00 Hgb 9.5 GM/dL (10.7-15.3) L 08/02/19 21:00 Hct 29.1 % (32.4-45.2) L 08/02/19 21:00 MCV 86.1 fl (80-96) D 08/02/19 21:00 MCH 28.3 pg (25.7-33.7) 08/02/19 21:00 MCHC 32.8 g/dl (32.0-36.0) 08/02/19 21:00 RDW 14.7 % (11.6-15.6) D 08/02/19 21:00 Plt Count 280 K/MM3 (134-434) D 08/02/19 21:00 MPV 7.3 fl (7.5-11.1) L 08/02/19 21:00 Absolute Neuts (auto) 2.6 K/mm3 (1.5-8.0) 08/02/19 21:00 Neutrophils % 60.9 % (42.8-82.8) 08/02/19 21:00 Lymphocytes % 22.6 % (8-40) 08/02/19 21:00 Monocytes % 9.7 % (3.8-10.2) 08/02/19 21:00 Eosinophils % 5.6 % (0-4.5) H 08/02/19 21:00 Basophils % 1.2 % (0-2.0) 08/02/19 21:00 Nucleated RBC % 0 % (0-0) 08/02/19 21:00 Platelet Estimate Cancelled 08/02/19 20:30 Platelet Comment Cancelled 08/02/19 20:30 No leukocytosis CMP Sodium 133 mmol/L (136-145) L 08/02/19 21:00 Potassium 3.7 mmol/L (3.5-5.1) 08/02/19 21:00 Chloride 94 mmol/L (98-107) L 08/02/19 21:00 Carbon Dioxide 32 mmol/L (21-32) 08/02/19 21:00 Anion Gap 8 MMOL/L (8-16) 08/02/19 21:00 BUN 32.1 mg/dL (7-18) H 08/02/19 21:00 Creatinine 2.3 mg/dL (0.55-1.3) H 08/02/19 21:00 Est GFR (CKD-EPI)AfAm 27.21 08/02/19 21:00 Est GFR (CKD-EPI)NonAf 23.48 08/02/19 21:00 Random Glucose 60 mg/dL (74-106) L 08/02/19 21:00 Lactic Acid 1.7 mmol/L (0.4-2.0) 08/02/19 21:00 Calcium 8.3 mg/dL (8.5-10.1) L 08/02/19 21:00 Total Bilirubin 0.5 mg/dL (0.2-1) 08/02/19 21:00 AST 17 U/L (15-37) 08/02/19 21:00 ALT 10 U/L (13-61) L 08/02/19 21:00 Alkaline Phosphatase 278 U/L (45-117) H 08/02/19 21:00 Creatine Kinase 50 U/L (26-192) 08/02/19 21:00 Troponin I < 0.02 ng/ml (0.00-0.05) 08/02/19 21:00 B-Natriuretic Peptide 26135.5 pg/ml (5-125) H 08/02/19 21:00 Total Protein 6.3 g/dl (6.4-8.2) L 08/02/19 21:00 Albumin 2.5 g/dl (3.4-5.0) L 08/02/19 21:00 Lipase 27 U/L (73-393) L 08/02/19 21:00 Na low Cr elevated, 2.3 Normal Lactate Normal Lipase BNP elevated, 65K, no baseline noted in chart CTAP, as read by imaging second cutter: "Large bilateral pleural effusions with lower lobe atelectasis and irregular pleural thickening along the anterior wall of the lingular segment. Cardiomegaly without pericardial effusion. Calcifications of the LAD, circumflex and RCA coronary branches. Calcifications of the tracheobronchial tree also noted. There are no gallstones identified. Liver, pancreas, spleen and adrenal glands are grossly unremarkable given the limitation of this non contrast exam. No renal stones are seen or evidence of obstructive uropathy. Diffuse atheromatous calcification of the abdominal aorta without AAA. There is no retroperitoneal hemorrhage The appendix is not visualized. No evidence of bowel obstruction, ascites, abscess, free air or diverticulitis. Bladder unremarkable. Prostate calcifications. Diffuse subcutaneous edema throughout the abdomen and pelvis extending to the lateral thigh region. Osteopenic bony matrix with fracture deformity and sclerosis along the inferior endplate of L4 with less than 10% height loss and L1 where 30-40% height loss anteriorly is noted. This is associated with sclerosis likely implying that this is chronic. IMPRESSION: Large bilateral pleural effusions with lower lobe atelectasis and irregular pleural thickening within the anterior wall of the lingular segment. No renal stones or evidence of obstructive uropathy. Anasarca." The anasarca is likely what is causing patient's abdominal tenderness. Also concern for cellulitis on abdomen. We will cover with clindamycin. Lasix ordered for fluid overload. 08/02/19 23:53 Discussed case with [facility]rey who accepted patient for admission under Dr. Oswald 08/03/19 00:50 Discharge - Discharge Information Problems reviewed: Yes Clinical Impression/Diagnosis: Anasarca, Pleural effusion Acute exacerbation of CHF (congestive heart failure) Qualifiers: Heart failure type: unspecified Qualified Code(s): I50.9 - Heart failure, unspecified Condition: Guarded - Admission Yes - Follow up/Referral - Patient Discharge Instructions - Post Discharge Activity
--- NOTE | 2019-08-02 19:54 | PDOC ---
Attending Attestation - Resident Resident Name: Aneta Hurd - ED Attending Attestation I have performed the following: I have examined & evaluated the patient, The case was reviewed & discussed with the resident, I agree w/resident's findings & plan - HPI HPI: 08/02/19 23:08 see resident hpi - Physicial Exam PE: 08/02/19 23:08 agree with resident exam - Medical Decision Making 08/02/19 23:08 53-year-old female with abdominal pain CT scan of the abdomen and pelvis shows anasarca with bilateral large pleural effusions there is soft tissue subcutaneous edema throughout the abdomen and pelvis Exam is consistent with abdominal wall cellulitis, likely fungal with bacterial super infection Plan for wound care, admission for IV antibiotics and further diuresis
[2019-08-02] MEDS ORDERED: ONDANSETRON 4 MG/2 ML VIAL IVPUSH ONE (20:00)
[2019-08-02] MEDS ORDERED: morphine CARPU-JECT 4 MG/1 ML DISP.SYRIN IVPUSH ONE (20:00)
[2019-08-02] MEDS ORDERED: ONDANSETRON 4 MG/2 ML VIAL ONE (20:10)
[2019-08-02] MEDS ORDERED: morphine SULFATE 4 MG/ML VIAL ONE (20:10)
[2019-08-02 21:21] LABS: BASO % 1.2 % (0-2.0); EOS % 5.6 % (0-4.5); HEMATOCRIT 29.1 % (32.4-45.2); HEMOGLOBIN 9.5 GM/dL (10.7-15.3); LYMPH % 22.6 % (8-40); MCH 28.3 pg (25.7-33.7); MCHC 32.8 g/dl (32.0-36.0); MEAN CELL VOLUME 86.1 fl (80-96); MEAN PLT VOLUME 7.3 fl (7.5-11.1); MONO % 9.7 % (3.8-10.2); NEUT % 60.9 % (42.8-82.8); PLATELET COUNT 280 K/MM3 (134-434); RBC 3.37 M/mm3 (3.60-5.2); RDW 14.7 % (11.6-15.6); WHITE BLOOD COUNT 4.3 K/mm3 (4.0-10.0)
[2019-08-02 22:00] LABS: ALBUMIN 2.5 g/dl (3.4-5.0); BILIRUBIN,TOTAL 0.5 mg/dL (0.2-1); BLOOD UREA NITROGEN 32.1 mg/dL (7-18); CALCIUM 8.3 mg/dL (8.5-10.1); CREATININE 2.3 mg/dL (0.55-1.3); N-TERMINAL BNP 65459.5 pg/ml (5-125); POTASSIUM 3.7 mmol/L (3.5-5.1); TOT PROT 6.3 g/dl (6.4-8.2)
[2019-08-02] MEDS ORDERED: FUROSEMIDE 100 MG/10 ML INJECTABLE VIAL IVPB ONE (23:31)
[2019-08-02] MEDS ORDERED: CLINDAMYCIN 600MG PREMIX IVPB 600 MG/50 ML BAG IVPB ONE (23:31)
[2019-08-03] MEDS ORDERED: CLINDAMYCIN 600MG PREMIX IVPB 600 MG/50 ML BAG IVPB ONE (00:25)
[2019-08-03] MEDS ORDERED: FUROSEMIDE 40 MG/4 ML INJECTABLE VIAL ONE ×2 (00:25→06:03)
--- NOTE | 2019-08-03 01:04 | HP ---
Admitting History and Physical - Primary Care Physician PCP: Denzel Seymour - Admission Chief Complaint: Abdominal Pain with redness History of Present Illness: This is a 53 y/o woman from the [facility] with a significant medical history of HTN, HLD, CHF (30-35 EF), DM, CKD, Nephrolithiasis, Breast Ca s/p B/L mastectomy (RT and chemo), UTIs, Scleroderma, Psoriasis. Who presents to the ED sent in from Dr. Joseph's office for increased abdominal pain, swelling and redness. Patient reports having increased pain with erythematous to abdominal fold. Patient reports being treated for bilateral leg edema and diabetic wounds in the past at the wound center, now receives dressings at the [facility]. Patient reports having chills, but denies, fever and cough at present. Patient denies dizziness, COSTELLO, CP, SOB, N/V/D, melena, hematochezia. 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: Peripheral Neuropathy (walks with a walker) Cardiovascular: Yes: HTN, Hyperlipdemia Gastrointestinal: Yes: Constipation Renal/: Yes: Renal Calculi, UTI ...LMP: 04/17/10 Heme/Onc: Yes: Anemia, Other (bilateral mastectomy 2/2 left breast cancer) Rheumatology: Yes: Other (Scleroderma,psoriasis) Endocrine: Yes: Diabetes Mellitus Dermatology: Yes: Psoriasis, Other (scleroderma) - Past Surgical History Past Surgical History: Yes: Appendectomy, , Mastectomy (Bilateral) - Advance Directives Advance Directives: Yes: MOLST (Full Code) - Smoking History Smoking history: Never smoked Have you smoked in the past 12 months: No Aproximately how many cigarettes per day: 0 - Alcohol/Substance Use Hx Alcohol Use: Yes (quit March 2019) History of Substance Use: reports: None - Social History Usual Living Arrangement: Yes: [facility] ADL: Support Services Occupation: Unemployed History of Recent Travel: No Home Medications - Allergies Allergies/Adverse Reactions: Allergies Allergy/AdvReac Type Severity Reaction Status Date / Time Sulfa (Sulfonamide Allergy Intermediate Hives Verified 08/02/19 19:29 Antibiotics) [Sulfa(Sulfonamide Antibiotics)] terbinafine HCl Allergy Intermediate Rash Verified 08/02/19 19:29 [From Lamisil] - Home Medications Home Medications: Ambulatory Orders Metoprolol Succinate [Toprol XL -] 25 mg PO DAILY 07/19/14 Acetaminophen [Tylenol .Regular Strength -] 650 mg PO Q6H PRN tablet 04/23/19 Triamcinolone 0.1% Cream [Aristocort 0.1% Cream -] 1 applic TP BID applic 04/23 Cyclobenzaprine HCl 5 mg PO BID PRN #60 tablet 06/09/19 Levothyroxine [Synthroid -] 62.5 mcg PO DAILY@0700 30 Days #30 tablet 06/09/19 Oxycodone HCl 5 mg PO BID PRN #30 tablet MDD 2 06/11/19 Pantoprazole Sodium [Protonix -] 40 mg PO DAILY tablet.ec 06/11/19 Albuterol 0.083% Nebulizer Felicitas [Ventolin 0.083% Nebulizer Soln -] 1 neb NEB Q6H PRN 08/02/19 Bismuth Tribromoph/Petrolatum [Xeroform Petrolatum Dress] 1 each TP BID Calcium Carbonate [Oyster Shell Calcium] 500 mg PO BID 08/02/19 Cyclobenzaprine HCl [Flexeril -] 5 mg PO BID PRN 08/02/19 Docusate Sodium [Colace] 300 mg PO HS 08/02/19 Ergocalciferol (Vitamin D2) [Vitamin D2] 50,000 unit PO WEEKLY 08/02/19 Furosemide [Lasix -] 40 mg PO BID 08/02/19 Guaifenesin Dm [Robitussin Dm -] 10 ml PO Q4H PRN 08/02/19 Insulin Glargine,Hum.rec.anlog [Basaglar Kwikpen U-100] 3 unit SQ Q12H 08/02/19 Insulin Lispro [Humalog] 100 unit SQ AC 08/02/19 Lidocaine [Aspercreme] 1 each TP DAILY 08/02/19 Sennosides [Senna] 17.2 mg PO HS 08/02/19 Sodium Bicarbonate - 650 mg PO AC 08/02/19 Family Medical History Family Hx Cancer: Grandmother (maternal) (Breast Ca), Grandmother (paternal) ( Colon Ca) Family Hx Gastrointestinal Disorder: Father (Colon Polyps- Precancerous) Family Hx Renal Disease: Mother (ESRD), Father (Renal Calculi), Sister (Renal Calculi) Review of Systems - Review of Systems Constitutional: reports: Chills Eyes: reports: No Symptoms HENT: reports: No Symptoms Neck: reports: No Symptoms Cardiovascular: reports: Edema Respiratory: reports: No Symptoms Gastrointestinal: reports: Abdominal Pain Genitourinary: reports: Incontinence Breasts: reports: See HPI Musculoskeletal: reports: Back Pain, Decreased ROM Integumentary: reports: Erythema, Pallor, Rash, Wound. denies: No Symptoms Neurological: reports: No Symptoms Endocrine: reports: No Symptoms Hematology/Lymphatic: reports: No Symptoms Psychiatric: reports: No Symptoms Pain Intensity: 5 Physical Examination Vital Signs: Vital Signs Temperature 98 F 08/02/19 19:10 Pulse Rate 84 08/02/19 19:10 Respiratory Rate 18 08/02/19 19:10 Blood Pressure 142/72 08/02/19 19:10 O2 Sat by Pulse Oximetry (%) 99 08/02/19 19:10 Constitutional: Yes: No Distress, Calm, Obese, Pallor Eyes: Yes: Conjunctiva Clear (pale), EOM Intact, PERRL HENT: Yes: WNL, Atraumatic, Normocephalic Neck: Yes: WNL, Supple, Trachea Midline Respiratory: Yes: Diminished, Dullness Gastrointestinal: Yes: Abdomen, Obese, Hypoactive Bowel Sounds, Tenderness, Tenderness, Epigastrium Renal/: Yes: Mccann Present Breast(s): Yes: Other (b/l mastectomy) Musculoskeletal: Yes: Back Pain Extremities: Yes: Erythema Edema: Yes Edema: LUE: 3+ (lymph edema), LLE: 2+, RLE: 2+ Peripheral Pulses WNL: Yes Integumentary: Yes: Venous Stasis Changes Wound/Incision: Yes: Dressing Dry and Intact, Reddened Neurological: Yes: WNL, Alert, Oriented, Cran Nerves II-XII Intact ...Motor Strength: WNL Psychiatric: Yes: WNL, Alert, Oriented Labs: CBC, BMP 08/02/19 21:00 08/02/19 21:00 Laboratory Results - last 24 hr 08/02/19 08/02/19 08/02/19 20:30 20:30 21:00 WBC Cancelled Corrected WBC (auto) Cancelled RBC Cancelled Hgb Cancelled Hct Cancelled MCV Cancelled MCH Cancelled MCHC Cancelled RDW Cancelled Plt Count Cancelled MPV Cancelled Absolute Neuts (auto) Cancelled Neutrophils % Cancelled Lymphocytes % Cancelled Monocytes % Cancelled Eosinophils % Cancelled Basophils % Cancelled Nucleated RBC % Cancelled Platelet Estimate Cancelled Platelet Comment Cancelled PT with INR Cancelled INR Cancelled PTT (Actin FS) Cancelled Sodium Potassium Chloride Carbon Dioxide Anion Gap BUN Creatinine Est GFR (CKD-EPI)AfAm Est GFR (CKD-EPI)NonAf POC Glucometer Random Glucose Lactic Acid Calcium Total Bilirubin AST ALT Alkaline Phosphatase Creatine Kinase 50 Troponin I < 0.02 B-Natriuretic Peptide Total Protein Albumin Lipase 08/02/19 08/02/19 08/02/19 21:00 21:00 21:00 WBC 4.3 Corrected WBC (auto) RBC 3.37 L Hgb 9.5 L Hct 29.1 L MCV 86.1 D MCH 28.3 MCHC 32.8 RDW 14.7 D Plt Count 280 D MPV 7.3 L Absolute Neuts (auto) 2.6 Neutrophils % 60.9 Lymphocytes % 22.6 Monocytes % 9.7 Eosinophils % 5.6 H Basophils % 1.2 Nucleated RBC % 0 Platelet Estimate Platelet Comment PT with INR INR PTT (Actin FS) Sodium 133 L Potassium 3.7 Chloride 94 L Carbon Dioxide 32 Anion Gap 8 BUN 32.1 H Creatinine 2.3 H Est GFR (CKD-EPI)AfAm 27.21 Est GFR (CKD-EPI)NonAf 23.48 POC Glucometer Random Glucose 60 L Lactic Acid 1.7 Calcium 8.3 L Total Bilirubin 0.5 AST 17 ALT 10 L Alkaline Phosphatase 278 H Creatine Kinase Troponin I B-Natriuretic Peptide 39652.5 H Total Protein 6.3 L Albumin 2.5 L Lipase 27 L 08/03/19 04:48 WBC Corrected WBC (auto) RBC Hgb Hct MCV MCH MCHC RDW Plt Count MPV Absolute Neuts (auto) Neutrophils % Lymphocytes % Monocytes % Eosinophils % Basophils % Nucleated RBC % Platelet Estimate Platelet Comment PT with INR INR PTT (Actin FS) Sodium Potassium Chloride Carbon Dioxide Anion Gap BUN Creatinine Est GFR (CKD-EPI)AfAm Est GFR (CKD-EPI)NonAf POC Glucometer 64 Random Glucose Lactic Acid Calcium Total Bilirubin AST ALT Alkaline Phosphatase Creatine Kinase Troponin I B-Natriuretic Peptide Total Protein Albumin Lipase Intake & Output 07/31/19 08/01/19 08/02/19 08/03/19 23:59 23:59 23:59 23:59 Weight 67.903 kg 113.398 kg Imaging - Results Chest X-ray: Image Reviewed Cat Scan: Report Reviewed, Image Reviewed EKG: Image Reviewed Problem List - Problems (1) Acute exacerbation of CHF (congestive heart failure) Assessment/Plan: BNP >03524, no baseline avail to compare CTAP showed bilateral pleural effusions, anasarca Lasix given in ED EKG showed no acute ST or TWI compared to prior study Appreciate Cardiology consult Strict INOs Daily weights O2 Trop neg Continue Lasix Code(s): I50.9 - HEART FAILURE, UNSPECIFIED Qualifiers: Heart failure type: unspecified Qualified Code(s): I50.9 - Heart failure, unspecified (2) Anasarca Assessment/Plan: See Above Code(s): R60.1 - GENERALIZED EDEMA (3) Pleural effusion Assessment/Plan: Continue Lasix Monitor renal function Appreciate Pulm Consult O2 Code(s): J90 - PLEURAL EFFUSION, NOT ELSEWHERE CLASSIFIED (4) Acute renal failure superimposed on chronic kidney disease Assessment/Plan: 2.3, above baseline Appreciate Nephrology consult Monitor renal function Avoid Nephrotoxic drugs Code(s): N17.9 - ACUTE KIDNEY FAILURE, UNSPECIFIED; N18.9 - CHRONIC KIDNEY DISEASE, UNSPECIFIED (5) Cellulitis Assessment/Plan: Blood Cultures-pending CTAP- reviewed No leukocytosis, Lactic Acid- nl Clindamycin started in ED, will continue Appreciate ID consult Monitor CBC, BMP Monitor vitals Code(s): L03.90 - CELLULITIS, UNSPECIFIED Qualifiers: Site of cellulitis: unspecified site Qualified Code(s): L03.90 - Cellulitis , unspecified (6) Anemia in chronic kidney disease Assessment/Plan: stable Will transfuse if Hgb < 7.0 Monitor CBC Code(s): N18.9 - CHRONIC KIDNEY DISEASE, UNSPECIFIED; D63.1 - ANEMIA IN CHRONIC KIDNEY DISEASE (7) Diabetes Assessment/Plan: sub optimal BGMs ISS Code(s): E11.9 - TYPE 2 DIABETES MELLITUS WITHOUT COMPLICATIONS (8) Breast cancer Assessment/Plan: s/p Bilateral Mastectomy s/p RT and Chemo No current treatments Code(s): C50.919 - MALIGNANT NEOPLASM OF UNSP SITE OF UNSPECIFIED FEMALE BREAST (9) Hyperlipemia Assessment/Plan: Continue home med Monitor LFTs Code(s): E78.5 - HYPERLIPIDEMIA, UNSPECIFIED (10) Hypertension Assessment/Plan: stable Monitor BP Continue home med Code(s): I10 - ESSENTIAL (PRIMARY) HYPERTENSION (11) Hypothyroid Assessment/Plan: Continue home med Code(s): E03.9 - HYPOTHYROIDISM, UNSPECIFIED (12) Scleroderma Assessment/Plan: Appreciate content development specialist Code(s): M34.9 - SYSTEMIC SCLEROSIS, UNSPECIFIED Assessment/Plan This is a 53 y/o woman with a PMHx of HTN, HLD, CHF (30-35 EF), DM, CKD, Nephrolithiasis, UTIs, Scleroderma, Psoriasis, Breast ca s/p B/L Mastectomy (RT - LCW, Chemo). Admitted for Bilateral Pleural Effusions, CHF Exacerbation, Abdominal Cellulitis for further evaluation of their emergent condition. Plan: See Problem List FEN Fluid Restriction 1.5L Replete lytes prn Low Na, Diabetic Diet DVT ppx OOB SCDs Heparin SQ Dispo: Requires Inpatient Care Visit type - Emergency Visit Emergency Visit: Yes ED Registration Date: 08/02/19 Care time: The patient presented to the Emergency Department on the above date and was hospitalized for further evaluation of their emergent condition. - New Patient This patient is new to me today: Yes Date on this admission: 08/03/19 - Critical Care Critical Care patient: No
[2019-08-03] MEDS ORDERED: ALBUTEROL SO4 0.083% IH SOL 2.5 MG/3 ML VIAL.NEB. NEB PRN (04:16)
[2019-08-03] MEDS ORDERED: CYCLOBENZAPRINE HCL 5 MG TABLET PO PRN (04:16)
[2019-08-03] MEDS ORDERED: ACETAMINOPHEN 325 MG TABLET (FP) PO PRN (04:16)
[2019-08-03] MEDS ORDERED: guaiFENesin/D-METHORPHAN HB 10 ML UNIT-DOSE CUPS PO PRN (04:16)
[2019-08-03] MEDS ORDERED: DEXTROSE 50%-WATER - 25 GM/50 ML VIAL IVPUSH ONE (05:01)
[2019-08-03] MEDS ORDERED: MORPHINE SULFATE 2 MG/ML VIAL IVPUSH ONE (05:46)
[2019-08-03] MEDS ORDERED: DEXTROSE 50%-WATER - 25 GM/50 ML VIAL ONE (06:02)
[2019-08-03] MEDS ORDERED: LEVOTHYROXINE NA 25 MCG TABLET (FP) ONE (06:03)
[2019-08-03] MEDS ORDERED: MORPHINE SULFATE 2 MG/ML VIAL ONE (06:03)
[2019-08-03] MEDS: INSULIN SLIDING SCALE (NOVOLOG) 1 VIAL SQ SCH ×4 (06:23→21:30)
[2019-08-03] MEDS: FUROSEMIDE 40 MG/4 ML INJECTABLE VIAL IVPUSH SCH ×2 (06:23→17:13)
[2019-08-03] MEDS ORDERED: LEVOTHYROXINE NA 25 MCG TABLET (FP) PO SCH (07:00)
[2019-08-03] MEDS ORDERED: PT OWN MED DRAWER 7, Y5N ONE ×3 (08:15→17:48)
--- NOTE | 2019-08-03 09:20 | CON.CARD ---
Consult Consult Specialty:: Cardiology Referred by:: Darek Reason for Consultation:: CHF - History of Present Illness Chief Complaint: abd pain, sob History of Present Illness: The patient is a 53 year old female with a history of DM, HTN, HLD, CKD, scleroderma, nephrolithasis, recurrent UTI's, Chronic systolic CHF (30-35% EF), and breast Ca S/P bilateral mastectomy, falls, anasarca who was sent to the ER for abdominal pain, also found with sob and pleural effusions on CXR. She denies chest pain but admits to worsening edema of the legs and abdomen, and orthopnea for 2-3 weeks. Needs 3-4 pillows to sleep. Echo 04/12/19: EF 30-35%, pleural effusion and pleural mass. RVSP 45mmHg. Nuclear Stress 04/22/19 Inferolateral infarct, no ischemia EF 37%. 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 breast cancer--2009. 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 s/p bilateral mastectomies/axillary lymphadenectomy. s/p RT to Lt. chestwall. 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 Occupation: Unemployed History of Recent Travel: No Home Medications - Allergies Allergies/Adverse Reactions: Allergies Allergy/AdvReac Type Severity Reaction Status Date / Time Sulfa (Sulfonamide Allergy Intermediate Hives Verified 08/02/19 19:29 Antibiotics) [Sulfa(Sulfonamide Antibiotics)] terbinafine HCl Allergy Intermediate Rash Verified 08/02/19 19:29 [From Lamisil] - Home Medications Home Medications: Ambulatory Orders Metoprolol Succinate [Toprol XL -] 25 mg PO DAILY 07/19/14 Acetaminophen [Tylenol .Regular Strength -] 650 mg PO Q6H PRN tablet 04/23/19 Triamcinolone 0.1% Cream [Aristocort 0.1% Cream -] 1 applic TP BID applic 04/23 Cyclobenzaprine HCl 5 mg PO BID PRN #60 tablet 06/09/19 Levothyroxine [Synthroid -] 62.5 mcg PO DAILY@0700 30 Days #30 tablet 06/09/19 Oxycodone HCl 5 mg PO BID PRN #30 tablet MDD 2 06/11/19 Pantoprazole Sodium [Protonix -] 40 mg PO DAILY tablet.ec 06/11/19 Albuterol 0.083% Nebulizer Felicitas [Ventolin 0.083% Nebulizer Soln -] 1 neb NEB Q6H PRN 08/02/19 Bismuth Tribromoph/Petrolatum [Xeroform Petrolatum Dress] 1 each TP BID Calcium Carbonate [Oyster Shell Calcium] 500 mg PO BID 08/02/19 Cyclobenzaprine HCl [Flexeril -] 5 mg PO BID PRN 08/02/19 Docusate Sodium [Colace] 300 mg PO HS 08/02/19 Ergocalciferol (Vitamin D2) [Vitamin D2] 50,000 unit PO WEEKLY 08/02/19 Furosemide [Lasix -] 40 mg PO BID 08/02/19 Guaifenesin Dm [Robitussin Dm -] 10 ml PO Q4H PRN 08/02/19 Insulin Glargine,Hum.rec.anlog [Basaglar Kwikpen U-100] 3 unit SQ Q12H 08/02/19 Insulin Lispro [Humalog] 100 unit SQ AC 08/02/19 Lidocaine [Aspercreme] 1 each TP DAILY 08/02/19 Sennosides [Senna] 17.2 mg PO HS 08/02/19 Sodium Bicarbonate - 650 mg PO AC 08/02/19 Vital Signs: Vital Signs Temperature 98.2 F 08/03/19 06:20 Pulse Rate 82 08/03/19 06:20 Respiratory Rate 20 08/03/19 06:20 Blood Pressure 123/66 08/03/19 06:20 O2 Sat by Pulse Oximetry (%) 98 08/03/19 06:20 Constitutional: Yes: No Distress, Calm Eyes: Yes: Conjunctiva Clear, EOM Intact HENT: Yes: Normocephalic Neck: Yes: Trachea Midline Respiratory: Yes: Dullness (bilateral L>R) Gastrointestinal: Yes: Normal Bowel Sounds, Ascites Cardiovascular: Yes: Regular Rate and Rhythm JVD: Yes Carotid Bruit: No PMI: Displaced Heart Sounds: Yes: S1, S2 Musculoskeletal: Yes: WNL Extremities: Yes: Erythema Edema: Yes Edema: LLE: 3+, RLE: 3+ Peripheral Pulses WNL: Yes - Other Data Labs, Other Data: CBC, BMP 08/02/19 21:00 08/02/19 21:00 INR, PTT INR Cancelled 08/02/19 20:30 Troponin, BNP 08/02/19 08/02/19 21:00 21:00 Troponin I < 0.02 B-Natriuretic Peptide 07379.5 H Troponin, BNP 08/02/19 08/02/19 21:00 21:00 Troponin I < 0.02 B-Natriuretic Peptide 19351.5 H Imaging - Results Chest X-ray: Report Reviewed (chf, bilat effusion L>R.) EKG: Report Reviewed Assessment/Plan The patient is a 53 year old female with a history of DM, HTN, HLD, CKD, scleroderma, nephrolithasis, recurrent UTI's, Chronic systolic CHF (30-35% EF), and breast Ca S/P bilateral mastectomy, falls, anasarca who was sent to the ER for abdominal pain, also found with sob and pleural effusions on CXR. She denies chest pain but admits to worsening edema of the legs and abdomen, and orthopnea for 2-3 weeks. Needs 3-4 pillows to sleep. Echo 04/12/19: EF 30-35%, pleural effusion and pleural mass. RVSP 45mmHg. Nuclear Stress 04/22/19 Inferolateral infarct, no ischemia EF 37%. Impression: Acute on chronic biventricular CHF Plan: -continue diuresis with IV lasix. Increase to 80 mg daily. -renal failure limits the use of diuretics and ACEI/ARB. -consider thoracentesis -would consider renal evaluation as well given renal failure and anasarca. ? nephrotic? she has had significant proteinuria in the past, now seemingly negative. -continue GI workup, cellulitis rx.
[2019-08-03 09:38] LABS: EPI CELLS 12.4 /HPF (0-5/HPF); HYALINE CASTS 17 /lpf (0-8); URINE APPEARANCE CLEAR; URINE BACTERIA 13.2 /hpf (NEGATIVE); URINE BILIRUBIN NEGATIVE (NEGATIVE); URINE COLOR YELLOW; URINE GLUCOSE (UA) NEGATIVE (NEGATIVE); URINE KETONE NEGATIVE (NEGATIVE); URINE LEUK ESTERASE 2+ (NEGATIVE); URINE NITRITE NEGATIVE (NEGATIVE); URINE PROTEIN NEGATIVE (NEGATIVE); URINE RBC 45 /hpf (0-4); URINE UROBILINOGEN 0.2 mg/dL (0.2-1.0); URINE WBC 34 /hpf (0-5)
[2019-08-03] MEDS: SODIUM BICARBONATE 650 MG TABLET PO SCH ×4 (09:39→17:51)
[2019-08-03] MEDS: LEVOTHYROXINE PO SCH (09:40)
[2019-08-03] MEDS: metoPROLOL SUCCINATE 25 MG TAB.SR.24H (FP) PO SCH (09:40)
[2019-08-03] MEDS: CLINDAMYCIN 600MG PREMIX IVPB 600 MG/50 ML BAG IVPB SCH ×2 (09:40→17:14)
[2019-08-03] MEDS: CALCIUM (OYSTER SHELL) 500 MG TABLET (FP) PO SCH ×2 (09:40→21:32)
[2019-08-03] MEDS: HEPARIN NA (PORCINE) 5,000 UNITS/ML 1ML VIAL SQ SCH ×2 (09:40→21:29)
[2019-08-03] MEDS ORDERED: PATIENT'S OWN MEDICATION (NON-FORMULARY) (Bismuth Tribromoph/Petrolatum [Xeroform Petrolat TP SCH (10:00)
--- NOTE | 2019-08-03 10:04 | EKG ---
Test Reason : Blood Pressure : / mmHG Vent. Rate : 081 BPM Atrial Rate : 081 BPM P-R Int : 126 ms QRS Dur : 084 ms QT Int : 398 ms P-R-T Axes : 034 -11 182 degrees QTc Int : 462 ms POOR DATA QUALITY, INTERPRETATION MAY BE ADVERSELY AFFECTED NORMAL SINUS RHYTHM WITH SINUS ARRHYTHMIA LOW VOLTAGE QRS POSSIBLE ANTEROLATERAL INFARCT (CITED ON OR BEFORE 30-MAY-2019) ABNORMAL ECG WHEN COMPARED WITH ECG OF 30-MAY-2019 19:24, VENT. RATE HAS DECREASED BY 57 BPM Confirmed by Umer Link MD ([id number]) on 08/03/2019 10:04:17 AM Also confirmed by MD RIAN, TANIKA ([id number]) on 08/03/2019 10:04:42 AM Referred By: Confirmed By:TANIKA MODI MD
--- NOTE | 2019-08-03 10:30 | PN ---
Progress Note (short form) - Note Progress Note: Pt examined in ER has pain in abdomen, legs B/L was in [facility] prior to admission Vital Signs - 24 hr 08/02/19 08/03/19 19:10 06:20 Temperature 98 F 98.2 F Pulse Rate 84 Pulse Rate [ 82 Left Radial] Respiratory 18 20 Rate Blood Pressure 142/72 Blood Pressure 123/66 [Right Arm] O2 Sat by Pulse 99 98 Oximetry (%) Current Medications Generic Name Dose Route Start Last Admin Trade Name Freq PRN Reason Stop Dose Admin Acetaminophen 650 mg 08/03/19 04:16 Tylenol - PO Q6H PRN Fever Or Pain Albuterol Sulfate 1 amp 08/03/19 04:16 Ventolin 0.083% Nebulizer Soln - NEB Q6H PRN ASTHMA Calcium Carbonate 500 mg 08/03/19 10:00 08/03/19 09:40 Os-Mauri 500mg - PO 500 mg BID TERESITA Administration Cyclobenzaprine HCl 5 mg 08/03/19 04:16 Cyclobenzaprine Hcl PO BID PRN MUSCLE SPASMS Docusate Sodium 300 mg 08/03/19 22:00 Colace - PO HS TERESITA Furosemide 40 mg 08/03/19 06:00 08/03/19 06:23 Lasix Injection - IVPUSH 40 mg BID@0600,1400 TERESITA Administration Guaifenesin 10 ml 08/03/19 04:16 Robitussin Dm - PO Q4H PRN COUGH Heparin Sodium (Porcine) 5,000 unit 08/03/19 10:00 08/03/19 09:40 Heparin - SQ 5,000 unit BID TERESITA Administration Clindamycin Phosphate 600 mg in 50 mls @ 100 mls/hr 08/03/19 10:00 08/03/19 09:40 Cleocin 600 Mg Premix Ivpb - IVPB 100 mls/hr Q8H-IV TERESITA Administration Protocol Insulin Aspart 1 vial 08/03/19 07:00 08/03/19 06:23 Novolog Vial Sliding Scale - SQ Not Given ACHS [facility] Protocol Levothyroxine Sodium 50 mcg/ 62.5 mcg 08/03/19 07:00 08/03/19 09:40 Levothyroxine Sodium 12.5 mcg PO 62.5 mcg DAILY@0700 TERESITA Administration Metoprolol Succinate 25 mg 08/03/19 10:00 08/03/19 09:40 Toprol Xl - PO 25 mg DAILY TERESITA Administration Non-Formulary Medication 1 each 08/03/19 10:00 Lidocaine [Aspercreme] TP DAILY TERESITA Oxycodone HCl 5 mg 08/03/19 04:23 Roxicodone - PO Q6H PRN PAIN LEVEL 7 - 10 Senna 2 tab 08/03/19 22:00 Senna - PO HS TERESITA Sodium Bicarbonate 650 mg 08/03/19 07:00 08/03/19 09:39 Sodium Bicarbonate - PO 650 mg TIDAC TERESITA Administration Triamcinolone Acetonide 1 applic 08/03/19 10:00 Aristocort 0.1% Cream - TP BID [facility] Laboratory Results - last 24 hr 08/02/19 08/02/19 08/02/19 09:12 20:30 20:30 WBC Cancelled Corrected WBC (auto) Cancelled RBC Cancelled Hgb Cancelled Hct Cancelled MCV Cancelled MCH Cancelled MCHC Cancelled RDW Cancelled Plt Count Cancelled MPV Cancelled Absolute Neuts (auto) Cancelled Neutrophils % Cancelled Lymphocytes % Cancelled Monocytes % Cancelled Eosinophils % Cancelled Basophils % Cancelled Nucleated RBC % Cancelled Platelet Estimate Cancelled Platelet Comment Cancelled PT with INR Cancelled INR Cancelled PTT (Actin FS) Cancelled Sodium Potassium Chloride Carbon Dioxide Anion Gap BUN Creatinine Est GFR (CKD-EPI)AfAm Est GFR (CKD-EPI)NonAf POC Glucometer Random Glucose Lactic Acid Calcium Total Bilirubin AST ALT Alkaline Phosphatase Creatine Kinase Troponin I B-Natriuretic Peptide Total Protein Albumin Lipase Urine Color Yellow Urine Appearance Clear Urine pH 7.0 D Ur Specific Hensley 1.007 L Urine Protein Negative Urine Glucose (UA) Negative Urine Ketones Negative Urine Blood 2+ H Urine Nitrite Negative Urine Bilirubin Negative Urine Urobilinogen 0.2 Ur Leukocyte Esterase 2+ H Urine WBC (Auto) 34 Urine RBC (Auto) 45 Urine Casts (Auto) 17 U Epithel Cells (Auto) 12.4 Urine Bacteria (Auto) 13.2 08/02/19 08/02/19 08/02/19 21:00 21:00 21:00 WBC Corrected WBC (auto) RBC Hgb Hct MCV MCH MCHC RDW Plt Count MPV Absolute Neuts (auto) Neutrophils % Lymphocytes % Monocytes % Eosinophils % Basophils % Nucleated RBC % Platelet Estimate Platelet Comment PT with INR INR PTT (Actin FS) Sodium 133 L Potassium 3.7 Chloride 94 L Carbon Dioxide 32 Anion Gap 8 BUN 32.1 H Creatinine 2.3 H Est GFR (CKD-EPI)AfAm 27.21 Est GFR (CKD-EPI)NonAf 23.48 POC Glucometer Random Glucose 60 L Lactic Acid 1.7 Calcium 8.3 L Total Bilirubin 0.5 AST 17 ALT 10 L Alkaline Phosphatase 278 H Creatine Kinase 50 Troponin I < 0.02 B-Natriuretic Peptide 20795.5 H Total Protein 6.3 L Albumin 2.5 L Lipase 27 L Urine Color Urine Appearance Urine pH Ur Specific Hensley Urine Protein Urine Glucose (UA) Urine Ketones Urine Blood Urine Nitrite Urine Bilirubin Urine Urobilinogen Ur Leukocyte Esterase Urine WBC (Auto) Urine RBC (Auto) Urine Casts (Auto) U Epithel Cells (Auto) Urine Bacteria (Auto) 08/02/19 08/03/19 21:00 04:48 WBC 4.3 Corrected WBC (auto) RBC 3.37 L Hgb 9.5 L Hct 29.1 L MCV 86.1 D MCH 28.3 MCHC 32.8 RDW 14.7 D Plt Count 280 D MPV 7.3 L Absolute Neuts (auto) 2.6 Neutrophils % 60.9 Lymphocytes % 22.6 Monocytes % 9.7 Eosinophils % 5.6 H Basophils % 1.2 Nucleated RBC % 0 Platelet Estimate Platelet Comment PT with INR INR PTT (Actin FS) Sodium Potassium Chloride Carbon Dioxide Anion Gap BUN Creatinine Est GFR (CKD-EPI)AfAm Est GFR (CKD-EPI)NonAf POC Glucometer 64 Random Glucose Lactic Acid Calcium Total Bilirubin AST ALT Alkaline Phosphatase Creatine Kinase Troponin I B-Natriuretic Peptide Total Protein Albumin Lipase Urine Color Urine Appearance Urine pH Ur Specific [place] Urine Protein Urine Glucose (UA) Urine Ketones Urine Blood Urine Nitrite Urine Bilirubin Urine Urobilinogen Ur Leukocyte Esterase Urine WBC (Auto) Urine RBC (Auto) Urine Casts (Auto) U Epithel Cells (Auto) Urine Bacteria (Auto) CXR-- B/L effusion left >right CT abd /pelvis noted culture pending S1 S2 irregular lungs decreased abd-- anasarca+erythema abd wal,, tender, multiple psoriatic lesions on abd and legs leg wound right -- dressing in place b/l fanny wrapping B/l leg edema PLAN CHF systolic decompensation-- -- cardiology eval noted -- previous echo from April noted -- EF 35% -- iv lasix -- monitor output -- renal function Cellulitis -- on iv antibiotics -- ID eval -- wound care renal failure -- acute on chronic -- monitor while on iv lasix -- renal consult Problem List - Problems (1) Acute exacerbation of CHF (congestive heart failure) Code(s): I50.9 - HEART FAILURE, UNSPECIFIED Qualifiers: Heart failure type: unspecified Qualified Code(s): I50.9 - Heart failure, unspecified (2) Anasarca Code(s): R60.1 - GENERALIZED EDEMA (3) Pleural effusion Code(s): J90 - PLEURAL EFFUSION, NOT ELSEWHERE CLASSIFIED (4) Acute renal failure Code(s): N17.9 - ACUTE KIDNEY FAILURE, UNSPECIFIED (5) Acute renal failure superimposed on chronic kidney disease Code(s): N17.9 - ACUTE KIDNEY FAILURE, UNSPECIFIED; N18.9 - CHRONIC KIDNEY DISEASE, UNSPECIFIED (6) Anemia Code(s): D64.9 - ANEMIA, UNSPECIFIED
--- NOTE | 2019-08-03 12:29 | CONSULT ---
- Consultation REQUESTING PROVIDER: CONSULT REQUEST: We have been asked to surgically evaluate this patient for venous stasis ulcers. PCP:Jamie Oswald HISTORY OF PRESENT ILLNESS: 53 y/o F from [facility] w/ PMHx HTN, HLD, CHF (30 -35 EF), DM, CKD, Nephrolithiasis, Breast Ca s/p B/L mastectomy (RT and chemo), UTIs, Scleroderma, Psoriasis, now sent to ED for abdominal pain, also found with sob and pleural effusions on CXR. Pt reports RLE wound was discovered by aid at [place] approximately 3 weeks ago. Reports they have been caring for it with xeroform/fanny wraps. Reports wound has been stable. Has seen Dr Rodriguez in the past for prioor wounds and received HBO therapy. Denies cp/sob, n/v/d, h/o tobacco use, claudication or vascular interventions. Reports she has not been ambulatory since last admission in May (admitted after a fall), has not done PT and is not strong enough to ambulate. PMHx: as above PSHx: appendectomy, , mastectomies (b/l) Home Medications Medication Instructions Recorded Metoprolol Succinate [Toprol XL -] 25 mg PO DAILY 07/19/14 Acetaminophen [Tylenol .Regular 650 mg PO Q6H PRN tablet 04/23/19 Strength -] Triamcinolone 0.1% Cream 1 applic TP BID applic 04/23/19 [Aristocort 0.1% Cream -] Cyclobenzaprine HCl 5 mg PO BID PRN #60 tablet 06/09/19 Levothyroxine [Synthroid -] 62.5 mcg PO DAILY@0700 30 Days #30 06/09/19 tablet Oxycodone HCl 5 mg PO BID PRN #30 tablet MDD 2 06/11/19 Pantoprazole Sodium [Protonix -] 40 mg PO DAILY tablet.ec 06/11/19 Albuterol 0.083% Nebulizer Felicitas 1 neb NEB Q6H PRN 08/02/19 [Ventolin 0.083% Nebulizer Soln -] Bismuth Tribromoph/Petrolatum 1 each TP BID 08/02/19 [Xeroform Petrolatum Dress] Calcium Carbonate [Oyster Shell 500 mg PO BID 08/02/19 Calcium] Cyclobenzaprine HCl [Flexeril -] 5 mg PO BID PRN 08/02/19 Docusate Sodium [Colace] 300 mg PO HS 08/02/19 Ergocalciferol (Vitamin D2) 50,000 unit PO WEEKLY 08/02/19 [Vitamin D2] Furosemide [Lasix -] 40 mg PO BID 08/02/19 Guaifenesin Dm [Robitussin Dm -] 10 ml PO Q4H PRN 08/02/19 Insulin Glargine,Hum.rec.anlog 3 unit SQ Q12H 08/02/19 [Basaglar Kwikpen U-100] Insulin Lispro [Humalog] 100 unit SQ AC 08/02/19 Lidocaine [Aspercreme] 1 each TP DAILY 08/02/19 Sennosides [Senna] 17.2 mg PO HS 08/02/19 Sodium Bicarbonate - 650 mg PO AC 08/02/19 Allergies Allergy/AdvReac Type Severity Reaction Status Date / Time Sulfa (Sulfonamide Allergy Intermediate Hives Verified 08/02/19 19:29 Antibiotics) [Sulfa(Sulfonamide Antibiotics)] terbinafine HCl Allergy Intermediate Rash Verified 08/02/19 19:29 [From Lamisil] REVIEW OF SYSTEMS: CONSTITUTIONAL: Absent: fever, chills CARDIOVASCULAR: Absent: chest pain RESPIRATORY: +shortness of breath GASTROINTESTINAL: Absent: abdominal pain PHYSICAL EXAM: GENERAL: Awake, alert, and fully oriented, in no acute distress. HEAD: Normal with no signs of trauma. LUNGS: Unlabored on RA. No accessory muscle use. HEART: Regular rate and rhythm. No murmurs LOWER EXTREMITIES: LLE with 2+ pitting edema to knee. RLE with 2+ pitting edema to knee, superficial ulceration at lateral calf, nearly circumferential. No erythema no drainage. No foul odor, + ttp. Vasc: 2+ b/l dp, 1+ L pt, R pt 2+ Vital Signs Temperature 98.2 F 08/03/19 06:20 Pulse Rate 82 08/03/19 06:20 Respiratory Rate 20 08/03/19 06:20 Blood Pressure 123/66 08/03/19 06:20 O2 Sat by Pulse Oximetry (%) 98 08/03/19 06:20 Lab Results WBC 4.3 K/mm3 (4.0-10.0) 08/02/19 21:00 RBC 3.37 M/mm3 (3.60-5.2) L 08/02/19 21:00 Hgb 9.5 GM/dL (10.7-15.3) L 08/02/19 21:00 Hct 29.1 % (32.4-45.2) L 08/02/19 21:00 MCV 86.1 fl (80-96) D 08/02/19 21:00 MCHC 32.8 g/dl (32.0-36.0) 08/02/19 21:00 RDW 14.7 % (11.6-15.6) D 08/02/19 21:00 Plt Count 280 K/MM3 (134-434) D 08/02/19 21:00 Sodium 133 mmol/L (136-145) L 08/02/19 21:00 Potassium 3.7 mmol/L (3.5-5.1) 08/02/19 21:00 Chloride 94 mmol/L (98-107) L 08/02/19 21:00 Carbon Dioxide 32 mmol/L (21-32) 08/02/19 21:00 Anion Gap 8 MMOL/L (8-16) 08/02/19 21:00 BUN 32.1 mg/dL (7-18) H 08/02/19 21:00 Creatinine 2.3 mg/dL (0.55-1.3) H 08/02/19 21:00 Random Glucose 60 mg/dL (74-106) L 08/02/19 21:00 Calcium 8.3 mg/dL (8.5-10.1) L 08/02/19 21:00 INR Cancelled 08/02/19 20:30 A/P: 53 y/o F from [facility] w/ PMHx HTN, HLD, CHF (30-35 EF), DM, CKD, Nephrolithiasis, Breast Ca s/p B/L mastectomy (RT and chemo), UTIs, Scleroderma , Psoriasis, now sent to ED for abdominal pain, also found with sob and pleural effusions on CXR. Vascular consulted for venous stasis ulcer. - RLE with superficial noninfected venous stasis ulcer. -No acute vascular intervention at this time -Recommend b/l le elevation wile at rest -Xeroform, 4x4's and kerlix/fanny to b/l le's changed daily -Diuresis per Cards/medical team -Heel/DTI precautions d/w attending Dr Rodriguez
--- NOTE | 2019-08-03 12:50 | CON.ID ---
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 breast cancer--2009. 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 s/p bilateral mastectomies/axillary lymphadenectomy. s/p RT to Lt. chestwall. 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 Occupation: Unemployed History of Recent Travel: No Home Medications - Allergies Allergies/Adverse Reactions: Allergies Allergy/AdvReac Type Severity Reaction Status Date / Time Sulfa (Sulfonamide Allergy Intermediate Hives Verified 08/02/19 19:29 Antibiotics) [Sulfa(Sulfonamide Antibiotics)] terbinafine HCl Allergy Intermediate Rash Verified 08/02/19 19:29 [From Lamisil] - Home Medications Home Medications: Ambulatory Orders Metoprolol Succinate [Toprol XL -] 25 mg PO DAILY 07/19/14 Acetaminophen [Tylenol .Regular Strength -] 650 mg PO Q6H PRN tablet 04/23/19 Triamcinolone 0.1% Cream [Aristocort 0.1% Cream -] 1 applic TP BID applic 04/23 Cyclobenzaprine HCl 5 mg PO BID PRN #60 tablet 06/09/19 Levothyroxine [Synthroid -] 62.5 mcg PO DAILY@0700 30 Days #30 tablet 06/09/19 Oxycodone HCl 5 mg PO BID PRN #30 tablet MDD 2 06/11/19 Pantoprazole Sodium [Protonix -] 40 mg PO DAILY tablet.ec 06/11/19 Albuterol 0.083% Nebulizer Felicitas [Ventolin 0.083% Nebulizer Soln -] 1 neb NEB Q6H PRN 08/02/19 Bismuth Tribromoph/Petrolatum [Xeroform Petrolatum Dress] 1 each TP BID Calcium Carbonate [Oyster Shell Calcium] 500 mg PO BID 08/02/19 Cyclobenzaprine HCl [Flexeril -] 5 mg PO BID PRN 08/02/19 Docusate Sodium [Colace] 300 mg PO HS 08/02/19 Ergocalciferol (Vitamin D2) [Vitamin D2] 50,000 unit PO WEEKLY 08/02/19 Furosemide [Lasix -] 40 mg PO BID 08/02/19 Guaifenesin Dm [Robitussin Dm -] 10 ml PO Q4H PRN 08/02/19 Insulin Glargine,Hum.rec.anlog [Basaglar Kwikpen U-100] 3 unit SQ Q12H 08/02/19 Insulin Lispro [Humalog] 100 unit SQ AC 08/02/19 Lidocaine [Aspercreme] 1 each TP DAILY 08/02/19 Sennosides [Senna] 17.2 mg PO HS 08/02/19 Sodium Bicarbonate - 650 mg PO AC 08/02/19 Physical Exam Vital Signs: Vital Signs Temperature 98.2 F 08/03/19 06:20 Pulse Rate 82 08/03/19 06:20 Respiratory Rate 20 08/03/19 06:20 Blood Pressure 123/66 08/03/19 06:20 O2 Sat by Pulse Oximetry (%) 98 08/03/19 06:20 Labs: CBC, BMP 08/02/19 21:00 08/02/19 21:00
[2019-08-03] MEDS: PIPERACILLIN/TAZOB 2.25 GM 2.25 GM in DEXTROSE 5%-WATER - 50 ML IVPB SCH ×2 (13:46→17:55)
--- NOTE | 2019-08-03 14:49 | CONSULT ---
Consult - text type - Consultation Consultation Note: Renal consult for GENESIS on CKD This is a 53 year old woman with history of CKD (baseline Cr 1.4-1.5), CHF, ETOH abuse, DM, Hypertension, hyperlipidemia, breast cancer s/p bilateral mastecotm, scleroderma and psoriasis presented from home with erythema in LE and noted to have Cr of 2.3. Seen and examined in the ER. Awake and alert. complaints of neck pain. Denies any sob, cp, fever or chills. Pt was recently seen in the office and diuretics were increase due to worsening LE swelling. Denies any fever, chills, N/V/D. Making urine. Currently getting IV diuretics. PMhx: as above Allergies: as listed in EMR Family Hx: NC Social Hx: No T/A/D ROS: as per HPI Vital Signs Temperature 98.7 F 08/03/19 14:10 Pulse Rate 78 08/03/19 14:10 Respiratory Rate 18 08/03/19 14:10 Blood Pressure 125/75 08/03/19 14:10 O2 Sat by Pulse Oximetry (%) 95 08/03/19 14:10 Intake & Output 07/31/19 08/01/19 08/02/19 08/03/19 23:59 23:59 23:59 23:59 Weight 67.903 kg 113.398 kg NAD awake and alert neck supple RRR CTA + erythemaous plaques on abd weeping edema in LE CBC, BMP 08/02/19 21:00 08/02/19 21:00 Current Medications Acetaminophen (Tylenol -) 650 mg PO Q6H PRN PRN Reason: Fever Or Pain Albuterol Sulfate (Ventolin 0.083% Nebulizer Soln -) 1 amp NEB Q6H PRN PRN Reason: ASTHMA Calcium Carbonate (Os-Mauri 500mg -) 500 mg PO BID TERESITA Last Admin: 08/03/19 09:40 Dose: 500 mg Cyclobenzaprine HCl (Cyclobenzaprine Hcl) 5 mg PO BID PRN PRN Reason: MUSCLE SPASMS Docusate Sodium (Colace -) 300 mg PO HS TERESITA Furosemide (Lasix Injection -) 40 mg IVPUSH BID@0600,1400 TERESITA Last Admin: 08/03/19 06:23 Dose: 40 mg Guaifenesin (Robitussin Dm -) 10 ml PO Q4H PRN PRN Reason: COUGH Heparin Sodium (Porcine) (Heparin -) 5,000 unit SQ BID [facility], [facility] Last Admin: 08/03/19 09:40 Dose: 5,000 unit Clindamycin Phosphate (Cleocin 600 Mg Premix Ivpb -) 600 mg in 50 mls @ 100 mls /hr IVPB Q8H-IV [facility], [facility]1983; Protocol Last Admin: 08/03/19 09:40 Dose: 100 mls/hr Piperacillin Sod/Tazobactam (Sod 2.25 gm/ Dextrose) 50 mls @ 100 mls/hr IVPB Q8H-IV [facility], [facility]–1983; Protocol Last Admin: 08/03/19 13:46 Dose: 100 mls/hr Insulin Aspart (Novolog Vial Sliding Scale -) 1 vial SQ ACHS [facility], [facility]1983; Protocol Last Admin: 08/03/19 13:45 Dose: Not Given Levothyroxine Sodium 50 mcg/ (Levothyroxine Sodium 12.5 mcg) 62.5 mcg PO DAILY@ 0700 [facility], [facility]1983 Last Admin: 08/03/19 09:40 Dose: 62.5 mcg Metoprolol Succinate (Toprol Xl -) 25 mg PO DAILY [facility], [facility] Last Admin: 08/03/19 09:40 Dose: 25 mg Non-Formulary Medication (Lidocaine [Aspercreme]) 1 each TP DAILY [facility], [facility] Oxycodone HCl (Roxicodone -) 5 mg PO Q6H PRN PRN Reason: PAIN LEVEL 7 - 10 Senna (Senna -) 2 tab PO HS [facility], [facility]1983 Sodium Bicarbonate (Sodium Bicarbonate -) 650 mg PO TIDAC [facility] Last Admin: 08/03/19 13:45 Dose: 650 mg Triamcinolone Acetonide (Aristocort 0.1% Cream -) 1 applic TP BID [facility] 53 year old woman with history of CKD (baseline Cr 1.4-1.5), CHF, ETOH abuse, DM , Hypertension, hyperlipidemia, breast cancer s/p bilateral mastecotm, scleroderma and psoriasis presented from home with erythema in LE and noted to have Cr of 2.3. 1. Acute kidney injury in setting of fluid overload/CHF 2. CKD stage 3 3. Hx of CHF 4. Edema of LE 5. r/o cellulitis of LE Check urine studies for FeUrea, UPCR Continue IV Lasix 40mg IV BID Trend renal function, electrolytes and daily weights Dose all meds for Cr Cl < 20 avoid IV contrast, NSAIDs or other nephrotoxins continue empiric antibiotics as per ID check iron studies for anemia Thank you Efraín Barillas DO
[2019-08-03] MEDS: TRIAMCINOLONE ACET 0.1% CREAM 15 GM TUBE TP SCH ×2 (16:36→21:27)
--- NOTE | 2019-08-03 16:50 | CON.GI ---
Consult Consult Specialty:: GI Referred by:: Dr. Mclaughlin Reason for Consultation:: Abdominal pain - History of Present Illness Chief Complaint: Back pain, abdominal pain History of Present Illness: Thank you for referring Ms. Barbara Dixon to the office for GI evaluation. She is a 53 year old woman admitted for evaluation of abdominal pain. I had seen her in office yesterday as part of follow-up from her hospitalization at [facility] . At that time, she was treated for UTI and was having back pain. She underwent EGD for 06/02/19 that revealed a 2-3cm polypoid lesion at the distal antrum. Biopsies of the polyp revealed polypoid gastric mucosa. When I saw her in the office last night, I explained that for continued evaluation of the poypoid lesion, I would be referring her to Dr. Chad Villalpando at [facility] for EUS with possible resection. During her evaluation she states that for a while she was experiencing abdominal pain and the sensation of a "bowling ball" in her stomach. She Denied nausea, vomiting. On exam, she was diffusely tender and tearful upon palpation of her abdomen. Given the extent of her abdominal pain, I advised ER evaluation. She was brought back to [facility] where she was undergoing rehab and then taken to the ER. She had an unrevealing non contrast CT scan of the abdomen and pelvis from a GI standpoint. She was admitted for CHF exacerbation as well. She continues to complain of abdominal pain and lower back pain. She denies diarrhea and currently uses stool softeners while in rehab. Her pain does not improve after having a bowel movement. There has been no rectal bleeding or melena reported. 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 breast cancer--2009. 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 s/p bilateral mastectomies/axillary lymphadenectomy. s/p RT to Lt. chestwall. 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 Occupation: Unemployed History of Recent Travel: No Home Medications - Allergies Allergies/Adverse Reactions: Allergies Allergy/AdvReac Type Severity Reaction Status Date / Time Sulfa (Sulfonamide Allergy Intermediate Hives Verified 08/02/19 19:29 Antibiotics) [Sulfa(Sulfonamide Antibiotics)] terbinafine HCl Allergy Intermediate Rash Verified 08/02/19 19:29 [From Lamisil] - Home Medications Home Medications: Ambulatory Orders Metoprolol Succinate [Toprol XL -] 25 mg PO DAILY 07/19/14 Acetaminophen [Tylenol .Regular Strength -] 650 mg PO Q6H PRN tablet 04/23/19 Triamcinolone 0.1% Cream [Aristocort 0.1% Cream -] 1 applic TP BID applic 04/23 Cyclobenzaprine HCl 5 mg PO BID PRN #60 tablet 06/09/19 Levothyroxine [Synthroid -] 62.5 mcg PO DAILY@0700 30 Days #30 tablet 06/09/19 Oxycodone HCl 5 mg PO BID PRN #30 tablet MDD 2 06/11/19 Pantoprazole Sodium [Protonix -] 40 mg PO DAILY tablet.ec 06/11/19 Albuterol 0.083% Nebulizer Felicitas [Ventolin 0.083% Nebulizer Soln -] 1 neb NEB Q6H PRN 08/02/19 Bismuth Tribromoph/Petrolatum [Xeroform Petrolatum Dress] 1 each TP BID Calcium Carbonate [Oyster Shell Calcium] 500 mg PO BID 08/02/19 Cyclobenzaprine HCl [Flexeril -] 5 mg PO BID PRN 08/02/19 Docusate Sodium [Colace] 300 mg PO HS 08/02/19 Ergocalciferol (Vitamin D2) [Vitamin D2] 50,000 unit PO WEEKLY 08/02/19 Furosemide [Lasix -] 40 mg PO BID 08/02/19 Guaifenesin Dm [Robitussin Dm -] 10 ml PO Q4H PRN 08/02/19 Insulin Glargine,Hum.rec.anlog [Basaglar Kwikpen U-100] 3 unit SQ Q12H 08/02/19 Insulin Lispro [Humalog] 100 unit SQ AC 08/02/19 Lidocaine [Aspercreme] 1 each TP DAILY 08/02/19 Sennosides [Senna] 17.2 mg PO HS 08/02/19 Sodium Bicarbonate - 650 mg PO AC 08/02/19 Family Medical History Other Family History: Mother: : 64: BCA, kidney problems. Father: : 63 : colon cancer, kidney stones, gout, PUD. Siblings: 2 sisters, 1 with colon polyps, one with kidney stones. Paternal grandmother: colon cancer. Maternal GM: BCA. Maternal Great aunt: BCA Review of Systems - Review of Systems Constitutional: reports: Weakness. denies: Fever Cardiovascular: denies: Chest Pain Respiratory: reports: Cough Gastrointestinal: reports: Abdominal Pain, Constipation. denies: Diarrhea, Melena, Rectal Bleeding Musculoskeletal: reports: Back Pain (Lower) Physical Exam-GI Vital Signs: Vital Signs Temperature 98.4 F 08/03/19 16:10 Pulse Rate 83 08/03/19 16:10 Respiratory Rate 18 08/03/19 16:10 Blood Pressure 105/59 L 08/03/19 16:10 O2 Sat by Pulse Oximetry (%) 95 08/03/19 14:10 Constitutional: Yes: Calm Eyes: No: Sclera Icterus Cardiovascular: Yes: Regular Rate and Rhythm Respiratory: Yes: Diminished (Faint crackles at right lung base) Gastrointestinal Inspection: Yes: Scars (+ RLQ scar) ...Auscultate: Yes: Normoactive Bowel Sounds ...Palpate: Yes: Soft, Tenderness (Diffuse TTP to even the lightest of palpation ), Other (abdominal wall edema) ...Percussion: No: Tympanitic Musculoskeletal: Yes: Back Pain (tenderness to even the slightest of palpation along the lower back) Edema: Yes (dressing in place) Neurological: Yes: Alert Labs: CBC, BMP 08/02/19 21:00 08/02/19 21:00 INR, PTT INR Cancelled 08/02/19 20:30 Imaging - Results Cat Scan: Report Reviewed, Image Reviewed Problem List - Problems (1) Abdominal pain Assessment/Plan: Unclear etiology of diffuse abdominal pain. Non-contrast scan unrevealing in terms of diffuse pain source. I explained to barbara and her sister who was present bedside that I did not feel that the gastric polypoid lesion noted on recent endoscopy could account for the extent of her pain complaint. Question if referred pain from lower back complaints, however the pain is diffuse. ? if secondary to subcutanous anasarca as even the slightest of touches to her abdominal wall causes her to cry out in pain. My office is currently arranging follow-up with Dr. Chad Villalpando at [facility] regarding the gastric polyp. She is being treated for CHF as well, so would need to be optimized prior to invasive testing. I have ordered a repeat CT scan with PO contrast to better assess her bowels. Renal function precludes IV contrast testing. Clear liquids for now Evaluation of lower back pain per PMD Code(s): R10.9 - UNSPECIFIED ABDOMINAL PAIN
[2019-08-03] MEDS ORDERED: FLU VACCINE QUAD 60 MCG/0.5 ML (MDV 19-20) IM ONE (17:00)
[2019-08-03] MEDS ORDERED: PIPERACILLIN/TAZOBACTAM 2.25 GM VIAL IVPB ONE (17:06)
[2019-08-03] MEDS ORDERED: DEXTROSE 5%-WATER - 50 ML IVPB ONE (17:06)
[2019-08-03] MEDS ORDERED: LIDOCAINE 5% TOPICAL PATCH TP ONE (17:07)
[2019-08-03] MEDS: oxyCODONE HCL 5 MG TABLET PO PRN ×2 (17:28→23:09)
[2019-08-03] MEDS: DOCUSATE SODIUM 100 MG CAPSULE (FP) PO SCH (21:28)
[2019-08-03] MEDS: SENNOSIDES 8.6MG TABLET (FP) PO SCH (21:32)
[2019-08-03] MEDS ORDERED: LIDOCAINE PATCH REMOVAL MC SCH (22:00)
[2019-08-04] MEDS ORDERED: DEXTROSE 5%-WATER - 50 ML IVPB ONE ×4 (01:58→18:12)
[2019-08-04] MEDS ORDERED: PIPERACILLIN/TAZOBACTAM 2.25 GM VIAL IVPB ONE ×4 (01:58→18:11)
[2019-08-04] MEDS: CLINDAMYCIN 600MG PREMIX IVPB 600 MG/50 ML BAG IVPB SCH ×3 (02:04→17:36)
[2019-08-04] MEDS: PIPERACILLIN/TAZOB 2.25 GM 2.25 GM in DEXTROSE 5%-WATER - 50 ML IVPB SCH ×3 (02:45→18:14)
[2019-08-04] MEDS ORDERED: LEVOTHYROXINE NA 50 MCG TABLET (FP) ONE ×2 (05:00)
[2019-08-04] MEDS ORDERED: LEVOTHYROXINE NA 25 MCG TABLET (FP) ONE ×2 (05:00)
[2019-08-04] MEDS: oxyCODONE HCL 5 MG TABLET PO PRN ×2 (05:23→23:08)
[2019-08-04] MEDS: FUROSEMIDE 40 MG/4 ML INJECTABLE VIAL IVPUSH SCH ×2 (05:24→13:17)
[2019-08-04] MEDS: INSULIN SLIDING SCALE (NOVOLOG) 1 VIAL SQ SCH ×4 (06:06→23:06)
[2019-08-04] MEDS: LEVOTHYROXINE PO SCH (06:25)
[2019-08-04 08:14] LABS: BASO % 1.2 % (0-2.0); EOS % 6.4 % (0-4.5); HEMATOCRIT 26.2 % (32.4-45.2); HEMOGLOBIN 8.4 GM/dL (10.7-15.3); LYMPH % 18.6 % (8-40); MCH 28.3 pg (25.7-33.7); MCHC 31.9 g/dl (32.0-36.0); MEAN CELL VOLUME 88.8 fl (80-96); MEAN PLT VOLUME 7.6 fl (7.5-11.1); MONO % 11.9 % (3.8-10.2); NEUT % 61.9 % (42.8-82.8); PLATELET COUNT 240 K/MM3 (134-434); RBC 2.95 M/mm3 (3.60-5.2); RDW 14.8 % (11.6-15.6); WHITE BLOOD COUNT 3.2 K/mm3 (4.0-10.0)
[2019-08-04 08:47] LABS: ALBUMIN 2.2 g/dl (3.4-5.0); BILIRUBIN,TOTAL 0.6 mg/dL (0.2-1); BLOOD UREA NITROGEN 37.3 mg/dL (7-18); CALCIUM 8.2 mg/dL (8.5-10.1); CREATININE 2.7 mg/dL (0.55-1.3); MAGNESIUM 1.8 mg/dL (1.8-2.4); PHOSPHOROUS 5.8 mg/dL (2.5-4.9); POTASSIUM 4.2 mmol/L (3.5-5.1); TOT PROT 5.4 g/dl (6.4-8.2)
[2019-08-04] MEDS ORDERED: PT OWN MED DRAWER 7, Y5N ONE (09:20)
[2019-08-04] MEDS: SODIUM BICARBONATE 650 MG TABLET PO SCH ×2 (10:03→12:20)
[2019-08-04] MEDS: metoPROLOL SUCCINATE 25 MG TAB.SR.24H (FP) PO SCH (10:05)
[2019-08-04] MEDS: HEPARIN NA (PORCINE) 5,000 UNITS/ML 1ML VIAL SQ SCH ×2 (10:05→23:06)
[2019-08-04] MEDS: CALCIUM (OYSTER SHELL) 500 MG TABLET (FP) PO SCH ×2 (10:05→23:06)
[2019-08-04] MEDS: TRIAMCINOLONE ACET 0.1% CREAM 15 GM TUBE TP SCH ×2 (10:06→21:59)
[2019-08-04] MEDS ORDERED: INSULIN (NOVOLOG) ASPART 100 UNITS/ML 10ML VIAL ONE (12:10)
[2019-08-04] MEDS ORDERED: FENTANYL PATCH WASTE MC PRN (12:20)
--- NOTE | 2019-08-04 12:25 | PN ---
Progress Note (short form) - Note Progress Note: just came back from CT abd /pelvis with po contrast c/o pain in back Vital Signs - 24 hr 08/03/19 08/03/19 08/03/19 14:10 16:10 19:10 Temperature 98.7 F 98.4 F 98.0 F Pulse Rate 83 88 Pulse Rate [ 78 Left Radial] Respiratory 18 18 18 Rate Blood Pressure 105/59 L 105/58 L Blood Pressure 125/75 [Right Arm] O2 Sat by Pulse 95 Oximetry (%) 08/03/19 08/03/19 08/04/19 21:00 22:00 04:00 Temperature 98.8 F 98.7 F Pulse Rate 75 77 Pulse Rate [ Left Radial] Respiratory 18 18 Rate Blood Pressure 115/63 125/57 L Blood Pressure [Right Arm] O2 Sat by Pulse 98 Oximetry (%) 08/04/19 10:00 Temperature Pulse Rate 76 Pulse Rate [ Left Radial] Respiratory 20 Rate Blood Pressure 118/74 Blood Pressure [Right Arm] O2 Sat by Pulse Oximetry (%) Current Medications Generic Name Dose Route Start Last Admin Trade Name Freq PRN Reason Stop Dose Admin Acetaminophen 650 mg 08/03/19 04:16 Tylenol - PO Q6H PRN Fever Or Pain Albuterol Sulfate 1 amp 08/03/19 04:16 Ventolin 0.083% Nebulizer Soln - NEB Q6H PRN ASTHMA Calcium Carbonate 500 mg 08/03/19 10:00 08/04/19 10:05 Os-Mauri 500mg - PO 500 mg BID [facility] Administration Cyclobenzaprine HCl 5 mg 08/03/19 04:16 Cyclobenzaprine Hcl PO BID PRN MUSCLE SPASMS Docusate Sodium 300 mg 08/03/19 22:00 08/03/19 21:28 Colace - PO 300 mg HS [facility] Administration Fentanyl 1 patch 08/04/19 12:30 Duragesic 25mcg Patch - TD 08/11/19 12:20 Q72H [facility] Furosemide 40 mg 08/03/19 06:00 08/04/19 05:24 Lasix Injection - IVPUSH 40 mg BID@0600,1400 [facility] Administration Guaifenesin 10 ml 08/03/19 04:16 Robitussin Dm - PO Q4H PRN COUGH Heparin Sodium (Porcine) 5,000 unit 08/03/19 10:00 08/04/19 10:05 Heparin - SQ 5,000 unit BID [facility] Administration Clindamycin Phosphate 600 mg in 50 mls @ 100 mls/hr 08/03/19 10:00 08/04/19 10:03 Cleocin 600 Mg Premix Ivpb - IVPB 100 mls/hr Q8H-IV [facility] Administration Protocol Piperacillin Sod/Tazobactam 50 mls @ 100 mls/hr 08/03/19 13:00 08/04/19 10:05 Sod 2.25 gm/ Dextrose IVPB 100 mls/hr Q8H-IV [facility] Administration Protocol Insulin Aspart 1 vial 08/03/19 07:00 08/04/19 06:06 Novolog Vial Sliding Scale - SQ 4 units ACHS [facility] Administration Protocol Levothyroxine Sodium 50 mcg/ 62.5 mcg 08/03/19 07:00 08/04/19 06:25 Levothyroxine Sodium 12.5 mcg PO 62.5 mcg DAILY@0700 [facility] Administration Metoprolol Succinate 25 mg 08/03/19 10:00 08/04/19 10:05 Toprol Xl - PO 25 mg DAILY [facility] Administration Miscellaneous 1 each 08/04/19 12:20 Duragesic Patch Waste [facility] PRN PRN PAIN Non-Formulary Medication 1 each 08/03/19 10:00 Lidocaine [Aspercreme] TP DAILY [facility] Oxycodone HCl 5 mg 08/03/19 04:23 08/04/19 05:23 Roxicodone - PO 5 mg Q6H PRN Administration PAIN LEVEL 7 - 10 Polyethylene Glycol 17 gm 08/04/19 12:30 Miralax (For Daily Use) - PO BID [facility] Senna 2 tab 08/03/19 22:00 08/03/19 21:32 Senna - PO Not Given HS [facility] Sodium Bicarbonate 650 mg 08/03/19 07:00 08/04/19 10:03 Sodium Bicarbonate - PO 650 mg TIDAC [facility] Administration Triamcinolone Acetonide 1 applic 08/03/19 10:00 08/04/19 10:06 Aristocort 0.1% Cream - TP Not Given BID [facility] Laboratory Results - last 24 hr 08/03/19 08/03/19 08/03/19 13:39 16:46 21:23 WBC RBC Hgb Hct MCV MCH MCHC RDW Plt Count MPV Absolute Neuts (auto) Neutrophils % Lymphocytes % Monocytes % Eosinophils % Basophils % Nucleated RBC % Sodium Potassium Chloride Carbon Dioxide Anion Gap BUN Creatinine Est GFR (CKD-EPI)AfAm Est GFR (CKD-EPI)NonAf POC Glucometer 149 195 162 Random Glucose Calcium Phosphorus Magnesium Iron TIBC Iron Saturation Unsaturated IBC Ferritin Total Bilirubin AST ALT Alkaline Phosphatase Total Protein Albumin 08/04/19 08/04/19 08/04/19 05:19 07:00 07:00 WBC 3.2 L RBC 2.95 L Hgb 8.4 L Hct 26.2 L MCV 88.8 MCH 28.3 MCHC 31.9 L RDW 14.8 Plt Count 240 MPV 7.6 Absolute Neuts (auto) 2.0 Neutrophils % 61.9 Lymphocytes % 18.6 Monocytes % 11.9 H Eosinophils % 6.4 H Basophils % 1.2 Nucleated RBC % 0 Sodium 134 L Potassium 4.2 Chloride 94 L Carbon Dioxide 30 Anion Gap 11 BUN 37.3 H Creatinine 2.7 H Est GFR (CKD-EPI)AfAm 22.42 Est GFR (CKD-EPI)NonAf 19.34 POC Glucometer 214 Random Glucose 217 H Calcium 8.2 L Phosphorus 5.8 H Magnesium 1.8 Iron TIBC Iron Saturation Unsaturated IBC Ferritin Total Bilirubin 0.6 AST 17 ALT 8 L Alkaline Phosphatase 243 H Total Protein 5.4 L Albumin 2.2 L 08/04/19 07:00 WBC RBC Hgb Hct MCV MCH MCHC RDW Plt Count MPV Absolute Neuts (auto) Neutrophils % Lymphocytes % Monocytes % Eosinophils % Basophils % Nucleated RBC % Sodium Potassium Chloride Carbon Dioxide Anion Gap BUN Creatinine Est GFR (CKD-EPI)AfAm Est GFR (CKD-EPI)NonAf POC Glucometer Random Glucose Calcium Phosphorus Magnesium Iron 75 TIBC 136 L Iron Saturation 55 H Unsaturated IBC 61 L Ferritin 450.9 H Total Bilirubin AST ALT Alkaline Phosphatase Total Protein Albumin Microbiology 08/03/19 09:12 Urine Culture - Preliminary Urine - Urine - Catheterized Lactose Fermenting Neg Bacilli Non Lactose Fermenting Gnb 08/03/19 07:05 Blood Culture - Preliminary Blood - Peripheral Venous NO GROWTH OBTAINED AFTER 24 HOURS, INCUBATION TO CONTINUE FOR 4 DAYS. 08/03/19 07:10 Blood Culture - Preliminary Blood - Peripheral Venous NO GROWTH OBTAINED AFTER 24 HOURS, INCUBATION TO CONTINUE FOR [address] abd /pelvis repeated culture --noted S1 S2 irregular lungs decreased abd-- anasarca+erythema abd wal,, tender, multiple psoriatic lesions on abd and legs tender lower back leg wound right -- dressing in place wound right leg PLAN CHF systolic decompensation-- -- cardiology eval noted -- previous echo from April noted -- EF 35% -- iv lasix -- monitor output -- renal function worsening Cellulitis -- on iv antibiotics -- ID eval noted -- wound care renal failure -- acute on chronic -- monitor while on iv lasix -- renal consult appreciated Back pain -- h/o breast CA -- c/o severe pain -- start Fentanyl patch -- will order MRI LS spine -- PT eval Problem List - Problems (1) Acute exacerbation of CHF (congestive heart failure) Code(s): I50.9 - HEART FAILURE, UNSPECIFIED Qualifiers: Heart failure type: unspecified Qualified Code(s): I50.9 - Heart failure, unspecified (2) Anasarca Code(s): R60.1 - GENERALIZED EDEMA (3) Pleural effusion Code(s): J90 - PLEURAL EFFUSION, NOT ELSEWHERE CLASSIFIED (4) Acute renal failure Code(s): N17.9 - ACUTE KIDNEY FAILURE, UNSPECIFIED (5) Acute renal failure superimposed on chronic kidney disease Code(s): N17.9 - ACUTE KIDNEY FAILURE, UNSPECIFIED; N18.9 - CHRONIC KIDNEY DISEASE, UNSPECIFIED (6) Anemia Code(s): D64.9 - ANEMIA, UNSPECIFIED
[2019-08-04] MEDS: POLYETHYLENE GLYCOL 3350 119 GM BTL PO SCH ×2 (13:15→21:58)
[2019-08-04] MEDS: fentaNYL 25mcg/hr PATCH.TD72 TD SCH (13:16)
--- NOTE | 2019-08-04 13:17 | PN ---
Progress Note (short form) - Note Progress Note: Renal follow up for GENESIS on CKD Seen and examined at the bedside continues to report back pain no chest pain, shortness or breath, abd pain, N/V making urine legs remain swollen Vital Signs Temperature 98.7 F 08/04/19 04:00 Pulse Rate 76 08/04/19 10:00 Respiratory Rate 20 08/04/19 10:00 Blood Pressure 118/74 08/04/19 10:00 O2 Sat by Pulse Oximetry (%) 98 08/03/19 21:00 Intake & Output 08/01/19 08/02/19 08/03/19 08/04/19 23:59 23:59 23:59 23:59 Intake Total 600 100 Balance 600 100 Weight 67.903 kg 70.579 kg NAD on NC O2 RRR Dec BS mild abd distension + edema in LE CBC, BMP 08/04/19 07:00 08/04/19 07:00 Current Medications Acetaminophen (Tylenol -) 650 mg PO Q6H PRN PRN Reason: Fever Or Pain Albuterol Sulfate (Ventolin 0.083% Nebulizer Soln -) 1 amp NEB Q6H PRN PRN Reason: ASTHMA Calcium Carbonate (Os-Mauri 500mg -) 500 mg PO BID [facility] Last Admin: 08/04/19 10:05 Dose: 500 mg Cyclobenzaprine HCl (Cyclobenzaprine Hcl) 5 mg PO BID PRN PRN Reason: MUSCLE SPASMS Docusate Sodium (Colace -) 300 mg PO HS [facility] Last Admin: 08/03/19 21:28 Dose: 300 mg Fentanyl (Duragesic 25mcg Patch -) 1 patch TD Q72H [facility] Stop: 08/11/19 12:20 Furosemide (Lasix Injection -) 40 mg IVPUSH BID@0600,1400 [facility] Last Admin: 08/04/19 05:24 Dose: 40 mg Guaifenesin (Robitussin Dm -) 10 ml PO Q4H PRN PRN Reason: COUGH Heparin Sodium (Porcine) (Heparin -) 5,000 unit SQ BID [facility] Last Admin: 08/04/19 10:05 Dose: 5,000 unit Clindamycin Phosphate (Cleocin 600 Mg Premix Ivpb -) 600 mg in 50 mls @ 100 mls /hr IVPB Q8H-IV [facility]; Protocol Last Admin: 08/04/19 10:03 Dose: 100 mls/hr Piperacillin Sod/Tazobactam (Sod 2.25 gm/ Dextrose) 50 mls @ 100 mls/hr IVPB Q8H-IV [facility]; Protocol Last Admin: 08/04/19 10:05 Dose: 100 mls/hr Insulin Aspart (Novolog Vial Sliding Scale -) 1 vial SQ ACHS [facility]; Protocol Last Admin: 08/04/19 12:24 Dose: 2 units Levothyroxine Sodium 50 mcg/ (Levothyroxine Sodium 12.5 mcg) 62.5 mcg PO DAILY@ 0700 [facility] Last Admin: 08/04/19 06:25 Dose: 62.5 mcg Metoprolol Succinate (Toprol Xl -) 25 mg PO DAILY [facility] Last Admin: 08/04/19 10:05 Dose: 25 mg Miscellaneous (Duragesic Patch Waste) 1 each MC PRN PRN PRN Reason: PAIN Non-Formulary Medication (Lidocaine [Aspercreme]) 1 each TP DAILY [facility] Oxycodone HCl (Roxicodone -) 5 mg PO Q6H PRN PRN Reason: PAIN LEVEL 7 - 10 Last Admin: 08/04/19 05:23 Dose: 5 mg Polyethylene Glycol (Miralax (For Daily Use) -) 17 gm PO BID [facility] Senna (Senna -) 2 tab PO HS [facility] Last Admin: 08/03/19 21:32 Dose: Not Given Triamcinolone Acetonide (Aristocort 0.1% Cream -) 1 applic TP BID [facility] Last Admin: 08/04/19 10:06 Dose: Not Given 53 year old woman with history of CKD (baseline Cr 1.4-1.5), CHF, ETOH abuse, DM , Hypertension, hyperlipidemia, breast cancer s/p bilateral mastecotm, scleroderma and psoriasis presented from home with erythema in LE and noted to have Cr of 2.3. 1. Acute kidney injury in setting of fluid overload/CHF 2. CKD stage 3 3. Hx of CHF 4. Edema of LE 5. r/o cellulitis of LE Cr slighty higher today but pt remains volume overloaded Continue IV Lasix 40mg IV BID Check serologic studies for ERICK, ANCA Dose all meds for Cr Cl < 20 avoid IV contrast, NSAIDs or other nephrotoxins continue empiric antibiotics as per ID f/u repeat CT scan with oral contrast Trend renal function and electrolytes daily d/c sodium bicarb as serum bicarb > 30 Thank you Efraín Barillas DO
--- NOTE | 2019-08-04 13:51 | PN.GI ---
GI Progress Note Subjective: Seeing for continued abdominal pain, diffuse in quality. Has 2-3 cm gastric lesion, thought not to be the etiology to pain. Contrast CT earlier today without additional GI findings (non-contrast CT 08/02). Tolerating liquid diet. - Objective Vital Signs: Vital Signs Temperature 98.7 F 08/04/19 04:00 Pulse Rate 76 08/04/19 10:00 Respiratory Rate 20 08/04/19 10:00 Blood Pressure 118/74 08/04/19 10:00 O2 Sat by Pulse Oximetry (%) 98 08/03/19 21:00 Constitutional: No Distress, Calm ...Auscultate: Yes: Normoactive Bowel Sounds ...Palpate: No: Tenderness, Rebound Labs: CBC, BMP 08/04/19 07:00 08/04/19 07:00 INR, PTT INR Cancelled 08/02/19 20:30 Problem List - Problems (1) Abdominal pain Assessment/Plan: Etiology to pain remains uncertain. Unlikely to be secondary to gastric lesion. No apparent pancreatic or biliary etiology. Code(s): R10.9 - UNSPECIFIED ABDOMINAL PAIN (2) Anasarca Code(s): R60.1 - GENERALIZED EDEMA
--- NOTE | 2019-08-04 16:06 | PN ---
Progress Note, Physician History of Present Illness: seen and examined today in nad. states she is feeling better when using supp O2 , lying flat comfortable. - Current Medication List Current Medications: Active Medications Acetaminophen (Tylenol -) 650 mg PO Q6H PRN PRN Reason: Fever Or Pain Albuterol Sulfate (Ventolin 0.083% Nebulizer Soln -) 1 amp NEB Q6H PRN PRN Reason: ASTHMA Calcium Carbonate (Os-Mauri 500mg -) 500 mg PO BID [facility] Last Admin: 08/04/19 10:05 Dose: 500 mg Cyclobenzaprine HCl (Cyclobenzaprine Hcl) 5 mg PO BID PRN PRN Reason: MUSCLE SPASMS Docusate Sodium (Colace -) 300 mg PO HS [facility] Last Admin: 08/03/19 21:28 Dose: 300 mg Fentanyl (Duragesic 25mcg Patch -) 1 patch TD Q72H [facility] Stop: 08/11/19 12:20 Last Admin: 08/04/19 13:16 Dose: 1 patch Furosemide (Lasix Injection -) 40 mg IVPUSH BID@0600,1400 [facility] Last Admin: 08/04/19 13:17 Dose: 40 mg Guaifenesin (Robitussin Dm -) 10 ml PO Q4H PRN PRN Reason: COUGH Heparin Sodium (Porcine) (Heparin -) 5,000 unit SQ BID [facility] Last Admin: 08/04/19 10:05 Dose: 5,000 unit Clindamycin Phosphate (Cleocin 600 Mg Premix Ivpb -) 600 mg in 50 mls @ 100 mls /hr IVPB Q8H-IV [facility]; Protocol Last Admin: 08/04/19 10:03 Dose: 100 mls/hr Piperacillin Sod/Tazobactam (Sod 2.25 gm/ Dextrose) 50 mls @ 100 mls/hr IVPB Q8H-IV [facility]; Protocol Last Admin: 08/04/19 10:05 Dose: 100 mls/hr Insulin Aspart (Novolog Vial Sliding Scale -) 1 vial SQ ACHS [facility]; Protocol Last Admin: 08/04/19 12:24 Dose: 2 units Levothyroxine Sodium 50 mcg/ (Levothyroxine Sodium 12.5 mcg) 62.5 mcg PO DAILY@ 0700 [facility] Last Admin: 08/04/19 06:25 Dose: 62.5 mcg Metoprolol Succinate (Toprol Xl -) 25 mg PO DAILY [facility] Last Admin: 08/04/19 10:05 Dose: 25 mg Miscellaneous (Duragesic Patch Waste) 1 each MC PRN PRN PRN Reason: PAIN Non-Formulary Medication (Lidocaine [Aspercreme]) 1 each TP DAILY [facility] Oxycodone HCl (Roxicodone -) 5 mg PO Q6H PRN PRN Reason: PAIN LEVEL 7 - 10 Last Admin: 08/04/19 05:23 Dose: 5 mg Polyethylene Glycol (Miralax (For Daily Use) -) 17 gm PO BID [facility] Last Admin: 08/04/19 13:15 Dose: 17 grams Senna (Senna -) 2 tab PO HS [facility] Last Admin: 08/03/19 21:32 Dose: Not Given Triamcinolone Acetonide (Aristocort 0.1% Cream -) 1 applic TP BID [facility] Last Admin: 08/04/19 10:06 Dose: Not Given - Objective Vital Signs: Vital Signs Temperature 98.6 F 08/04/19 14:00 Pulse Rate 75 08/04/19 14:00 Respiratory Rate 20 08/04/19 14:00 Blood Pressure 106/54 L 08/04/19 14:00 O2 Sat by Pulse Oximetry (%) 98 08/03/19 21:00 Constitutional: Yes: No Distress, Calm Eyes: Yes: Conjunctiva Clear, EOM Intact HENT: Yes: Atraumatic, Normocephalic Neck: Yes: Supple, Trachea Midline Cardiovascular: Yes: Regular Rate and Rhythm, S1, S2. No: Bradycardia, Tachycardia, Pulse Irregular, Bruit, JVD, Gallop, Murmur, Rub, S3, S4, Varicosities Respiratory: Yes: Regular, Diminished, On Nasal O2, Rales, Rhonchi. No: SOB, Wheezes Gastrointestinal: Yes: Normal Bowel Sounds, Soft. No: Distention, Tenderness Musculoskeletal: Yes: Muscle Weakness Extremities: Yes: WNL Edema: No Peripheral Pulses WNL: Yes Neurological: Yes: Alert, Oriented Psychiatric: Yes: Alert, Oriented Labs: CBC, BMP 08/04/19 07:00 08/04/19 07:00 INR, PTT INR Cancelled 08/02/19 20:30 - ....Imaging Chest X-ray: Report Reviewed, Image Reviewed EKG: Report Reviewed, Image Reviewed Other: Report Reviewed, Image Reviewed Assessment/Plan The patient is a 53 year old female with a history of DM, HTN, HLD, CKD, scleroderma, nephrolithasis, recurrent UTI's, Chronic systolic CHF (30-35% EF), and breast Ca S/P bilateral mastectomy, falls, anasarca who was sent to the ER for abdominal pain, also found with sob and pleural effusions on CXR. She denies chest pain but admits to worsening edema of the legs and abdomen, and orthopnea for 2-3 weeks. Needs 3-4 pillows to sleep. Echo 04/12/19: EF 30-35%, pleural effusion and pleural mass. RVSP 45mmHg. Nuclear Stress 04/22/19 Inferolateral infarct, no ischemia EF 37%. Impression: Acute on chronic biventricular CHF Plan: -b/l pleural effusions -receiving IV lasix 40mg bid -bun/creat trending up -may develop intravascular depletion with aggressive diuresis as pleural effusions do not generally rapidly respond to diuretics -may have to reduce diuretic dose if bun/creat continue to trend up -consider thoracentesis -[place] on CKD limits the use of diuretics and ACEI/ARB. -cont low dose metoprolol as BP tolerates
[2019-08-04] MEDS: DOCUSATE SODIUM 100 MG CAPSULE (FP) PO SCH (21:55)
[2019-08-04] MEDS: SENNOSIDES 8.6MG TABLET (FP) PO SCH (21:59)
[2019-08-05] MEDS ORDERED: PIPERACILLIN/TAZOBACTAM 2.25 GM VIAL IVPB ONE ×2 (00:54→15:41)
[2019-08-05] MEDS ORDERED: DEXTROSE 5%-WATER - 50 ML IVPB ONE ×2 (00:54→15:41)
[2019-08-05] MEDS: CLINDAMYCIN 600MG PREMIX IVPB 600 MG/50 ML BAG IVPB SCH ×3 (01:23→17:53)
[2019-08-05] MEDS: PIPERACILLIN/TAZOB 2.25 GM 2.25 GM in DEXTROSE 5%-WATER - 50 ML IVPB SCH ×3 (01:23→17:57)
[2019-08-05] MEDS ORDERED: LEVOTHYROXINE NA 50 MCG TABLET (FP) ONE (06:05)
[2019-08-05] MEDS ORDERED: LEVOTHYROXINE NA 25 MCG TABLET (FP) ONE (06:05)
[2019-08-05] MEDS: INSULIN SLIDING SCALE (NOVOLOG) 1 VIAL SQ SCH ×4 (06:34→23:06)
[2019-08-05] MEDS: LEVOTHYROXINE PO SCH (06:34)
[2019-08-05] MEDS: FUROSEMIDE 40 MG/4 ML INJECTABLE VIAL IVPUSH SCH ×2 (06:34→14:57)
[2019-08-05 07:38] LABS: BASO % 1.3 % (0-2.0); EOS % 9.4 % (0-4.5); HEMATOCRIT 24.4 % (32.4-45.2); HEMOGLOBIN 8.1 GM/dL (10.7-15.3); LYMPH % 27.8 % (8-40); MCH 28.6 pg (25.7-33.7); MCHC 33.3 g/dl (32.0-36.0); MEAN PLT VOLUME 7.5 fl (7.5-11.1); MONO % 13.7 % (3.8-10.2); NEUT % 47.8 % (42.8-82.8); PLATELET COUNT 227 K/MM3 (134-434); RBC 2.84 M/mm3 (3.60-5.2); RDW 14.5 % (11.6-15.6); WHITE BLOOD COUNT 2.7 K/mm3 (4.0-10.0)
[2019-08-05 08:08] LABS: ALBUMIN 2.1 g/dl (3.4-5.0); BILIRUBIN,TOTAL 0.8 mg/dL (0.2-1); BLOOD UREA NITROGEN 36.1 mg/dL (7-18); CALCIUM 8.1 mg/dL (8.5-10.1); CREATININE 2.7 mg/dL (0.55-1.3); MAGNESIUM 1.7 mg/dL (1.8-2.4); PHOSPHOROUS 5.9 mg/dL (2.5-4.9); POTASSIUM 4.2 mmol/L (3.5-5.1); TOT PROT 5.3 g/dl (6.4-8.2)
--- NOTE | 2019-08-05 10:44 | PN ---
Progress Note, Physician History of Present Illness: stable no new issues back pain leg in dressing - Current Medication List Current Medications: Active Medications Acetaminophen (Tylenol -) 650 mg PO Q6H PRN PRN Reason: Fever Or Pain Albuterol Sulfate (Ventolin 0.083% Nebulizer Soln -) 1 amp NEB Q6H PRN PRN Reason: ASTHMA Calcium Carbonate (Os-Mauri 500mg -) 500 mg PO BID [facility] Last Admin: 08/04/19 23:06 Dose: 500 mg Cyclobenzaprine HCl (Cyclobenzaprine Hcl) 5 mg PO BID PRN PRN Reason: MUSCLE SPASMS Docusate Sodium (Colace -) 300 mg PO HS [facility] Last Admin: 08/04/19 21:55 Dose: Not Given Fentanyl (Duragesic 25mcg Patch -) 1 patch TD Q72H [facility] Stop: 08/11/19 12:20 Last Admin: 08/04/19 13:16 Dose: 1 patch Furosemide (Lasix Injection -) 40 mg IVPUSH BID@0600,1400 [facility] Last Admin: 08/05/19 06:34 Dose: 40 mg Guaifenesin (Robitussin Dm -) 10 ml PO Q4H PRN PRN Reason: COUGH Heparin Sodium (Porcine) (Heparin -) 5,000 unit SQ BID [facility] Last Admin: 08/04/19 23:06 Dose: 5,000 unit Clindamycin Phosphate (Cleocin 600 Mg Premix Ivpb -) 600 mg in 50 mls @ 100 mls /hr IVPB Q8H-IV [facility]; Protocol Last Admin: 08/05/19 01:23 Dose: 100 mls/hr Piperacillin Sod/Tazobactam (Sod 2.25 gm/ Dextrose) 50 mls @ 100 mls/hr IVPB Q8H-IV [facility]; Protocol Last Admin: 08/05/19 01:23 Dose: 100 mls/hr Insulin Aspart (Novolog Vial Sliding Scale -) 1 vial SQ ACHS [facility]; Protocol Last Admin: 08/05/19 06:34 Dose: Not Given Levothyroxine Sodium 50 mcg/ (Levothyroxine Sodium 12.5 mcg) 62.5 mcg PO DAILY@ 0700 [facility] Last Admin: 08/05/19 06:34 Dose: 62.5 mcg Metoprolol Succinate (Toprol Xl -) 25 mg PO DAILY [facility] Last Admin: 08/04/19 10:05 Dose: 25 mg Miscellaneous (Duragesic Patch Waste) 1 each MC PRN PRN PRN Reason: PAIN Non-Formulary Medication (Lidocaine [Aspercreme]) 1 each TP DAILY [facility] Oxycodone HCl (Roxicodone -) 5 mg PO Q6H PRN PRN Reason: PAIN LEVEL 7 - 10 Last Admin: 08/04/19 23:08 Dose: 5 mg Polyethylene Glycol (Miralax (For Daily Use) -) 17 gm PO BID [facility] Last Admin: 08/04/19 21:58 Dose: Not Given Senna (Senna -) 2 tab PO HS [facility] Last Admin: 08/04/19 21:59 Dose: Not Given Triamcinolone Acetonide (Aristocort 0.1% Cream -) 1 applic TP BID [facility] Last Admin: 08/04/19 21:59 Dose: Not Given - Objective Vital Signs: Vital Signs Temperature 98.0 F 08/05/19 04:00 Pulse Rate 74 08/05/19 04:00 Respiratory Rate 20 08/05/19 04:00 Blood Pressure 103/67 08/05/19 04:00 O2 Sat by Pulse Oximetry (%) 98 08/04/19 21:00 Constitutional: Yes: Calm, Mild Distress Cardiovascular: Yes: S1, S2 Respiratory: Yes: Regular, CTA Bilaterally Gastrointestinal: Yes: Normal Bowel Sounds, Soft Musculoskeletal: Yes: WNL Extremities: Yes: Other Wound/Incision: Yes: Dressing Dry and Intact Neurological: Yes: Alert, Oriented Psychiatric: Yes: Alert, Oriented Labs: CBC, BMP 08/05/19 07:12 08/05/19 07:12 INR, PTT INR Cancelled 08/02/19 20:30 Assessment/Plan Problem List - Problems (1) Acute exacerbation of CHF (congestive heart failure) Code(s): I50.9 - HEART FAILURE, UNSPECIFIED Qualifiers: Heart failure type: unspecified Qualified Code(s): I50.9 - Heart failure, unspecified (2) Anasarca Code(s): R60.1 - GENERALIZED EDEMA (3) Pleural effusion Code(s): J90 - PLEURAL EFFUSION, NOT ELSEWHERE CLASSIFIED (4) Acute renal failure Code(s): N17.9 - ACUTE KIDNEY FAILURE, UNSPECIFIED (5) Acute renal failure superimposed on chronic kidney disease Code(s): N17.9 - ACUTE KIDNEY FAILURE, UNSPECIFIED; N18.9 - CHRONIC KIDNEY DISEASE, UNSPECIFIED (6) Anemia Code(s): D64.9 - ANEMIA, UNSPECIFIED cellulitis of the leg wound on the leg plan continue iv abx await for all results wound care rest as per the team
--- NOTE | 2019-08-05 10:48 | PN ---
Progress Note, Physician History of Present Illness: patient still c/o of side pain legs feeling better - Current Medication List Current Medications: Active Medications Acetaminophen (Tylenol -) 650 mg PO Q6H PRN PRN Reason: Fever Or Pain Albuterol Sulfate (Ventolin 0.083% Nebulizer Soln -) 1 amp NEB Q6H PRN PRN Reason: ASTHMA Calcium Carbonate (Os-Mauri 500mg -) 500 mg PO BID [facility] Last Admin: 08/04/19 23:06 Dose: 500 mg Cyclobenzaprine HCl (Cyclobenzaprine Hcl) 5 mg PO BID PRN PRN Reason: MUSCLE SPASMS Docusate Sodium (Colace -) 300 mg PO HS [facility] Last Admin: 08/04/19 21:55 Dose: Not Given Fentanyl (Duragesic 25mcg Patch -) 1 patch TD Q72H [facility] Stop: 08/11/19 12:20 Last Admin: 08/04/19 13:16 Dose: 1 patch Furosemide (Lasix Injection -) 40 mg IVPUSH BID@0600,1400 [facility] Last Admin: 08/05/19 06:34 Dose: 40 mg Guaifenesin (Robitussin Dm -) 10 ml PO Q4H PRN PRN Reason: COUGH Heparin Sodium (Porcine) (Heparin -) 5,000 unit SQ BID [facility] Last Admin: 08/04/19 23:06 Dose: 5,000 unit Clindamycin Phosphate (Cleocin 600 Mg Premix Ivpb -) 600 mg in 50 mls @ 100 mls /hr IVPB Q8H-IV [facility]; Protocol Last Admin: 08/05/19 01:23 Dose: 100 mls/hr Piperacillin Sod/Tazobactam (Sod 2.25 gm/ Dextrose) 50 mls @ 100 mls/hr IVPB Q8H-IV [facility]; Protocol Last Admin: 08/05/19 01:23 Dose: 100 mls/hr Insulin Aspart (Novolog Vial Sliding Scale -) 1 vial SQ ACHS [facility]; Protocol Last Admin: 08/05/19 06:34 Dose: Not Given Levothyroxine Sodium 50 mcg/ (Levothyroxine Sodium 12.5 mcg) 62.5 mcg PO DAILY@ 0700 [facility] Last Admin: 08/05/19 06:34 Dose: 62.5 mcg Metoprolol Succinate (Toprol Xl -) 25 mg PO DAILY [facility] Last Admin: 08/04/19 10:05 Dose: 25 mg Miscellaneous (Duragesic Patch Waste) 1 each [facility] PRN PRN PRN Reason: PAIN Non-Formulary Medication (Lidocaine [Aspercreme]) 1 each TP DAILY [facility] Oxycodone HCl (Roxicodone -) 5 mg PO Q6H PRN PRN Reason: PAIN LEVEL 7 - 10 Last Admin: 08/04/19 23:08 Dose: 5 mg Polyethylene Glycol (Miralax (For Daily Use) -) 17 gm PO BID [facility] Last Admin: 08/04/19 21:58 Dose: Not Given Senna (Senna -) 2 tab PO HS [facility] Last Admin: 08/04/19 21:59 Dose: Not Given Triamcinolone Acetonide (Aristocort 0.1% Cream -) 1 applic TP BID [facility] Last Admin: 08/04/19 21:59 Dose: Not Given - Objective Vital Signs: Vital Signs Temperature 98.0 F 08/05/19 04:00 Pulse Rate 74 08/05/19 04:00 Respiratory Rate 20 08/05/19 04:00 Blood Pressure 103/67 08/05/19 04:00 O2 Sat by Pulse Oximetry (%) 98 08/04/19 21:00 Constitutional: Yes: No Distress Cardiovascular: Yes: S1, S2 Respiratory: Yes: Regular, CTA Bilaterally Gastrointestinal: Yes: Normal Bowel Sounds, Soft Musculoskeletal: Yes: WNL Extremities: Yes: Other Wound/Incision: Yes: Dressing Dry and Intact Neurological: Yes: Alert, Oriented Psychiatric: Yes: Alert, Oriented Labs: CBC, BMP 08/05/19 07:12 08/05/19 07:12 INR, PTT INR Cancelled 08/02/19 20:30 - ....Imaging Cat Scan: Report Reviewed, Image Reviewed Assessment/Plan Problem List - Problems (1) Acute exacerbation of CHF (congestive heart failure) Code(s): I50.9 - HEART FAILURE, UNSPECIFIED Qualifiers: Heart failure type: unspecified Qualified Code(s): I50.9 - Heart failure, unspecified (2) Anasarca Code(s): R60.1 - GENERALIZED EDEMA (3) Pleural effusion Code(s): J90 - PLEURAL EFFUSION, NOT ELSEWHERE CLASSIFIED (4) Acute renal failure Code(s): N17.9 - ACUTE KIDNEY FAILURE, UNSPECIFIED (5) Acute renal failure superimposed on chronic kidney disease Code(s): N17.9 - ACUTE KIDNEY FAILURE, UNSPECIFIED; N18.9 - CHRONIC KIDNEY DISEASE, UNSPECIFIED (6) Anemia Code(s): D64.9 - ANEMIA, UNSPECIFIED cellulitis of the leg wound on the leg plan continue iv abx urine cx result and sensitivities noted wound care rest as per the team
[2019-08-05] MEDS: CALCIUM (OYSTER SHELL) 500 MG TABLET (FP) PO SCH ×2 (11:15→23:07)
[2019-08-05] MEDS ORDERED: MORPHINE SULFATE 2 MG/ML VIAL IVPUSH ONE (11:15)
[2019-08-05] MEDS: metoPROLOL SUCCINATE 25 MG TAB.SR.24H (FP) PO SCH (11:16)
[2019-08-05] MEDS: POLYETHYLENE GLYCOL 3350 119 GM BTL PO SCH ×2 (11:16→23:06)
[2019-08-05] MEDS: HEPARIN NA (PORCINE) 5,000 UNITS/ML 1ML VIAL SQ SCH ×2 (11:16→23:05)
[2019-08-05] MEDS: TRIAMCINOLONE ACET 0.1% CREAM 15 GM TUBE TP SCH ×2 (11:23→23:08)
--- NOTE | 2019-08-05 11:24 | PN ---
Progress Note (short form) - Note Progress Note: severe back pain Vital Signs - 24 hr 08/04/19 08/04/19 08/04/19 14:00 18:30 21:00 Temperature 98.6 F 97.7 F Pulse Rate 75 73 Respiratory 20 20 20 Rate Blood Pressure 106/54 L 110/68 O2 Sat by Pulse 98 Oximetry (%) 08/04/19 08/05/19 22:41 04:00 Temperature 98.6 F 98.0 F Pulse Rate 65 74 Respiratory 20 20 Rate Blood Pressure 108/52 L 103/67 O2 Sat by Pulse Oximetry (%) Current Medications Generic Name Dose Route Start Last Admin Trade Name Freq PRN Reason Stop Dose Admin Acetaminophen 650 mg 08/03/19 04:16 Tylenol - PO Q6H PRN Fever Or Pain Albuterol Sulfate 1 amp 08/03/19 04:16 Ventolin 0.083% Nebulizer Soln - NEB Q6H PRN ASTHMA Calcium Carbonate 500 mg 08/03/19 10:00 08/05/19 11:15 Os-Mauri 500mg - PO 500 mg BID [facility] Administration Cyclobenzaprine HCl 5 mg 08/03/19 04:16 Cyclobenzaprine Hcl PO BID PRN MUSCLE SPASMS Docusate Sodium 300 mg 08/03/19 22:00 08/04/19 21:55 Colace - PO Not Given HS [facility] Fentanyl 1 patch 08/04/19 12:30 08/04/19 13:16 Duragesic 25mcg Patch - TD 08/11/19 12:20 1 patch Q72H [facility] Administration Furosemide 40 mg 08/03/19 06:00 08/05/19 06:34 Lasix Injection - IVPUSH 40 mg BID@0600,1400 [facility] Administration Guaifenesin 10 ml 08/03/19 04:16 Robitussin Dm - PO Q4H PRN COUGH Heparin Sodium (Porcine) 5,000 unit 08/03/19 10:00 08/05/19 11:16 Heparin - SQ 5,000 unit BID [facility] Administration Clindamycin Phosphate 600 mg in 50 mls @ 100 mls/hr 08/03/19 10:00 08/05/19 11:15 Cleocin 600 Mg Premix Ivpb - IVPB 100 mls/hr Q8H-IV [facility] Administration Protocol Piperacillin Sod/Tazobactam 50 mls @ 100 mls/hr 08/03/19 13:00 08/05/19 01:23 Sod 2.25 gm/ Dextrose IVPB 100 mls/hr Q8H-IV [facility] Administration Protocol Insulin Aspart 1 vial 08/03/19 07:00 08/05/19 06:34 Novolog Vial Sliding Scale - SQ Not Given ACHS [facility] Protocol Levothyroxine Sodium 50 mcg/ 62.5 mcg 08/03/19 07:00 08/05/19 06:34 Levothyroxine Sodium 12.5 mcg PO 62.5 mcg DAILY@0700 [facility] Administration Metoprolol Succinate 25 mg 08/03/19 10:00 08/05/19 11:16 Toprol Xl - PO 25 mg DAILY [facility] Administration Miscellaneous 1 each 08/04/19 12:20 Duragesic Patch Waste MC PRN PRN PAIN Non-Formulary Medication 1 each 08/03/19 10:00 Lidocaine [Aspercreme] TP DAILY [facility] Oxycodone HCl 5 mg 08/03/19 04:23 08/04/19 23:08 Roxicodone - PO 5 mg Q6H PRN Administration PAIN LEVEL 7 - 10 Polyethylene Glycol 17 gm 08/04/19 12:30 08/05/19 11:16 Miralax (For Daily Use) - PO Not Given BID [facility] Senna 2 tab 08/03/19 22:00 08/04/19 21:59 Senna - PO Not Given HS [facility] Triamcinolone Acetonide 1 applic 08/03/19 10:00 08/05/19 11:23 Aristocort 0.1% Cream - TP 1 applic BID [facility] Administration Laboratory Results - last 24 hr 08/04/19 08/04/19 08/05/19 17:35 21:57 06:31 WBC RBC Hgb Hct MCV MCH MCHC RDW Plt Count MPV Absolute Neuts (auto) Neutrophils % Lymphocytes % Monocytes % Eosinophils % Basophils % Nucleated RBC % Sodium Potassium Chloride Carbon Dioxide Anion Gap BUN Creatinine Est GFR (CKD-EPI)AfAm Est GFR (CKD-EPI)NonAf POC Glucometer 131 210 145 Random Glucose Calcium Phosphorus Magnesium Total Bilirubin AST ALT Alkaline Phosphatase Total Protein Albumin 08/05/19 08/05/19 08/05/19 07:12 07:12 12:53 WBC 2.7 L RBC 2.84 L Hgb 8.1 L Hct 24.4 L MCV 86.0 MCH 28.6 MCHC 33.3 RDW 14.5 Plt Count 227 MPV 7.5 Absolute Neuts (auto) 1.3 L Neutrophils % 47.8 D Lymphocytes % 27.8 D Monocytes % 13.7 H Eosinophils % 9.4 H Basophils % 1.3 Nucleated RBC % 0 Sodium 132 L Potassium 4.2 Chloride 91 L Carbon Dioxide 30 Anion Gap 11 BUN 36.1 H Creatinine 2.7 H Est GFR (CKD-EPI)AfAm 22.42 Est GFR (CKD-EPI)NonAf 19.34 POC Glucometer 219 Random Glucose 149 H Calcium 8.1 L Phosphorus 5.9 H Magnesium 1.7 L Total Bilirubin 0.8 AST 16 ALT 7 L Alkaline Phosphatase 235 H Total Protein 5.[address] abd /pelvis repeated culture --noted S1 S2 irregular lungs decreased abd-- anasarca+erythema abd wal,, tender, multiple psoriatic lesions on abd and legs tender lower back leg wound right -- dressing in place wound right leg PLAN CHF systolic decompensation-- -- cardiology eval noted -- previous echo from April noted -- EF 35% -- iv lasix -- monitor output -- renal function same Cellulitis -- on iv antibiotics -- ID eval noted -- wound care renal failure -- acute on chronic -- monitor while on iv lasix -- renal consult appreciated Back pain -- h/o breast CA -- c/o severe pain -- started Fentanyl patch -- will order MRI LS spine -- to be done today -- PT eval repeat CT abd-- same MRI LS spine today l Problem List - Problems (1) Acute exacerbation of CHF (congestive heart failure) Code(s): I50.9 - HEART FAILURE, UNSPECIFIED Qualifiers: Heart failure type: unspecified Qualified Code(s): I50.9 - Heart failure, unspecified (2) Anasarca Code(s): R60.1 - GENERALIZED EDEMA (3) Pleural effusion Code(s): J90 - PLEURAL EFFUSION, NOT ELSEWHERE CLASSIFIED (4) Acute renal failure Code(s): N17.9 - ACUTE KIDNEY FAILURE, UNSPECIFIED (5) Acute renal failure superimposed on chronic kidney disease Code(s): N17.9 - ACUTE KIDNEY FAILURE, UNSPECIFIED; N18.9 - CHRONIC KIDNEY DISEASE, UNSPECIFIED (6) Anemia Code(s): D64.9 - ANEMIA, UNSPECIFIED
[2019-08-05] MEDS ORDERED: MAGNESIUM SULF 50% (8.12 MEQ/2 ML-1 GM VIAL) IVPB ONE (12:00)
--- NOTE | 2019-08-05 16:00 | PN ---
Progress Note, Physician History of Present Illness: seen and examined today in nad. states she is feeling a little better today. - Current Medication List Current Medications: Active Medications Acetaminophen (Tylenol -) 650 mg PO Q6H PRN PRN Reason: Fever Or Pain Albuterol Sulfate (Ventolin 0.083% Nebulizer Soln -) 1 amp NEB Q6H PRN PRN Reason: ASTHMA Calcium Carbonate (Os-Mauri 500mg -) 500 mg PO BID [facility] Last Admin: 08/05/19 11:15 Dose: 500 mg Cyclobenzaprine HCl (Cyclobenzaprine Hcl) 5 mg PO BID PRN PRN Reason: MUSCLE SPASMS Docusate Sodium (Colace -) 300 mg PO HS [facility] Last Admin: 08/04/19 21:55 Dose: Not Given Fentanyl (Duragesic 25mcg Patch -) 1 patch TD Q72H [facility] Stop: 08/11/19 12:20 Last Admin: 08/04/19 13:16 Dose: 1 patch Furosemide (Lasix Injection -) 40 mg IVPUSH BID@0600,1400 [facility] Last Admin: 08/05/19 06:34 Dose: 40 mg Guaifenesin (Robitussin Dm -) 10 ml PO Q4H PRN PRN Reason: COUGH Heparin Sodium (Porcine) (Heparin -) 5,000 unit SQ BID [facility] Last Admin: 08/05/19 11:16 Dose: 5,000 unit Clindamycin Phosphate (Cleocin 600 Mg Premix Ivpb -) 600 mg in 50 mls @ 100 mls /hr IVPB Q8H-IV [facility]; Protocol Last Admin: 08/05/19 11:15 Dose: 100 mls/hr Piperacillin Sod/Tazobactam (Sod 2.25 gm/ Dextrose) 50 mls @ 100 mls/hr IVPB Q8H-IV [facility]; Protocol Last Admin: 08/05/19 01:23 Dose: 100 mls/hr Insulin Aspart (Novolog Vial Sliding Scale -) 1 vial SQ ACHS [facility]; Protocol Last Admin: 08/05/19 06:34 Dose: Not Given Levothyroxine Sodium 50 mcg/ (Levothyroxine Sodium 12.5 mcg) 62.5 mcg PO DAILY@ 0700 [facility] Last Admin: 08/05/19 06:34 Dose: 62.5 mcg Metoprolol Succinate (Toprol Xl -) 25 mg PO DAILY [facility] Last Admin: 08/05/19 11:16 Dose: 25 mg Miscellaneous (Duragesic Patch Waste) 1 each MC PRN PRN PRN Reason: PAIN Non-Formulary Medication (Lidocaine [Aspercreme]) 1 each TP DAILY [facility] Oxycodone HCl (Roxicodone -) 5 mg PO Q6H PRN PRN Reason: PAIN LEVEL 7 - 10 Last Admin: 08/04/19 23:08 Dose: 5 mg Polyethylene Glycol (Miralax (For Daily Use) -) 17 gm PO BID [facility] Last Admin: 08/05/19 11:16 Dose: Not Given Senna (Senna -) 2 tab PO HS [facility] Last Admin: 08/04/19 21:59 Dose: Not Given Triamcinolone Acetonide (Aristocort 0.1% Cream -) 1 applic TP BID [facility] Last Admin: 08/05/19 11:23 Dose: 1 applic - Objective Vital Signs: Vital Signs Temperature 97.8 F 08/05/19 14:00 Pulse Rate 71 08/05/19 14:00 Respiratory Rate 20 08/05/19 14:00 Blood Pressure 137/56 L 08/05/19 14:00 O2 Sat by Pulse Oximetry (%) 98 08/04/19 21:00 Constitutional: Yes: No Distress, Calm Eyes: Yes: Conjunctiva Clear, EOM Intact HENT: Yes: Atraumatic, Normocephalic Neck: Yes: Supple, Trachea Midline Cardiovascular: Yes: Regular Rate and Rhythm, Murmur, S1, S2. No: Bradycardia, Tachycardia, Pulse Irregular, Bruit, JVD, Gallop, Rub, S3, S4, Varicosities Respiratory: Yes: Regular, Diminished, On Nasal O2. No: Rales, Rhonchi, SOB, Wheezes Gastrointestinal: Yes: Normal Bowel Sounds, Soft Edema: Yes Peripheral Pulses: Left Doralis Pedis: 2+, Right Dorsalis Pedis: 2+ Neurological: Yes: Alert, Oriented Psychiatric: Yes: Alert, Oriented Labs: CBC, BMP 08/05/19 07:12 08/05/19 07:12 INR, PTT INR Cancelled 08/02/19 20:30 - ....Imaging Chest X-ray: Report Reviewed, Image Reviewed EKG: Report Reviewed, Image Reviewed Other: Report Reviewed, Image Reviewed Assessment/Plan The patient is a 53 year old female with a history of DM, HTN, HLD, CKD, scleroderma, nephrolithasis, recurrent UTI's, Chronic systolic CHF (30-35% EF), and breast Ca S/P bilateral mastectomy, falls, anasarca who was sent to the ER for abdominal pain, also found with sob and pleural effusions on CXR. She denies chest pain but admits to worsening edema of the legs and abdomen, and orthopnea for 2-3 weeks. Needs 3-4 pillows to sleep. Echo 04/12/19: EF 30-35%, pleural effusion and pleural mass. RVSP 45mmHg. Nuclear Stress 04/22/19 Inferolateral infarct, no ischemia EF 37%. Impression: Acute on chronic biventricular CHF Plan: -b/l pleural effusions -receiving IV lasix 40mg bid -bun/creat stable today thus can cont IV lasix at current dose -may develop intravascular depletion with aggressive diuresis as pleural effusions do not generally rapidly respond to diuretics -may have to reduce diuretic dose if bun/creat continue to trend up -consider thoracentesis if diuresis ineffective -[place] on CKD limits the use of diuretics and ACEI/ARB. -cont low dose metoprolol as BP tolerates
--- NOTE | 2019-08-05 18:26 | PN ---
Progress Note (short form) - Note Progress Note: Renal follow up for GENESIS on CKD Seen and examined at the bedside feels better no sob at rest no chest pain making urine Vital Signs Temperature 97.8 F 08/05/19 14:00 Pulse Rate 71 08/05/19 14:00 Respiratory Rate 20 08/05/19 14:00 Blood Pressure 137/56 L 08/05/19 14:00 O2 Sat by Pulse Oximetry (%) 98 08/05/19 09:00 Intake & Output 08/02/19 08/03/19 08/04/19 08/05/19 23:59 23:59 23:59 23:59 Intake Total 600 700 850 Balance 600 700 850 Weight 67.903 kg 70.579 kg 70.307 kg NAD on NC O2 RRR Dec BS mild abd distension + edema in LE CBC, BMP 08/05/19 07:12 08/05/19 07:12 Current Medications Acetaminophen (Tylenol -) 650 mg PO Q6H PRN PRN Reason: Fever Or Pain Albuterol Sulfate (Ventolin 0.083% Nebulizer Soln -) 1 amp NEB Q6H PRN PRN Reason: ASTHMA Calcium Carbonate (Os-Mauri 500mg -) 500 mg PO BID [facility] Last Admin: 08/05/19 11:15 Dose: 500 mg Cyclobenzaprine HCl (Cyclobenzaprine Hcl) 5 mg PO BID PRN PRN Reason: MUSCLE SPASMS Docusate Sodium (Colace -) 300 mg PO HS [facility] Last Admin: 08/04/19 21:55 Dose: Not Given Fentanyl (Duragesic 25mcg Patch -) 1 patch TD Q72H [facility] Stop: 08/11/19 12:20 Last Admin: 08/04/19 13:16 Dose: 1 patch Furosemide (Lasix Injection -) 40 mg IVPUSH BID@0600,1400 [facility] Last Admin: 08/05/19 14:57 Dose: 40 mg Guaifenesin (Robitussin Dm -) 10 ml PO Q4H PRN PRN Reason: COUGH Heparin Sodium (Porcine) (Heparin -) 5,000 unit SQ BID [facility] Last Admin: 08/05/19 11:16 Dose: 5,000 unit Clindamycin Phosphate (Cleocin 600 Mg Premix Ivpb -) 600 mg in 50 mls @ 100 mls /hr IVPB Q8H-IV [facility]; Protocol Last Admin: 08/05/19 17:53 Dose: 100 mls/hr Piperacillin Sod/Tazobactam (Sod 2.25 gm/ Dextrose) 50 mls @ 100 mls/hr IVPB Q8H-IV [facility]; Protocol Last Admin: 08/05/19 17:57 Dose: 100 mls/hr Insulin Aspart (Novolog Vial Sliding Scale -) 1 vial SQ ACHS [facility]; Protocol Last Admin: 08/05/19 17:56 Dose: 4 units Levothyroxine Sodium 50 mcg/ (Levothyroxine Sodium 12.5 mcg) 62.5 mcg PO DAILY@ 0700 [facility] Last Admin: 08/05/19 06:34 Dose: 62.5 mcg Metoprolol Succinate (Toprol Xl -) 25 mg PO DAILY [facility] Last Admin: 08/05/19 11:16 Dose: 25 mg Miscellaneous (Duragesic Patch Waste) 1 each MC PRN PRN PRN Reason: PAIN Non-Formulary Medication (Lidocaine [Aspercreme]) 1 each TP DAILY [facility] Oxycodone HCl (Roxicodone -) 5 mg PO Q6H PRN PRN Reason: PAIN LEVEL 7 - 10 Last Admin: 08/04/19 23:08 Dose: 5 mg Polyethylene Glycol (Miralax (For Daily Use) -) 17 gm PO BID [facility] Last Admin: 08/05/19 11:16 Dose: Not Given Senna (Senna -) 2 tab PO HS [facility] Last Admin: 08/04/19 21:59 Dose: Not Given Triamcinolone Acetonide (Aristocort 0.1% Cream -) 1 applic TP BID [facility] Last Admin: 08/05/19 11:23 Dose: 1 applic 53 year old woman with history of CKD (baseline Cr 1.4-1.5), CHF, ETOH abuse, DM , Hypertension, hyperlipidemia, breast cancer s/p bilateral mastecotm, scleroderma and psoriasis presented from home with erythema in LE and noted to have Cr of 2.3. 1. Acute kidney injury in setting of fluid overload/CHF 2. CKD stage 3 3. Hx of CHF 4. Edema of LE 5. r/o cellulitis of LE Renal function unchanged Continue IV Lasix 40mg IV BID for now f/u serologic work up Dose all meds for Cr Cl < 20 avoid IV contrast, NSAIDs or other nephrotoxins Trend renal function and electrolytes daily Thank you Efraín Barillas DO
--- NOTE | 2019-08-05 20:18 | PN.GI ---
GI Progress Note Subjective: coverage for Dr Murillo continue to have abdoinal pain, diarrhea since yesterday - Objective Vital Signs: Vital Signs Temperature 97.7 F 08/05/19 18:02 Pulse Rate 74 08/05/19 18:02 Respiratory Rate 20 08/05/19 18:02 Blood Pressure 122/71 08/05/19 18:02 O2 Sat by Pulse Oximetry (%) 98 08/05/19 09:00 Constitutional: Well Nourished Eyes: Yes: Conjunctiva Clear HENT: Yes: Atraumatic Neck: Yes: Supple Cardiovascular: Yes: Regular Rate and Rhythm Respiratory: Yes: CTA Bilaterally ...Palpate: Yes: Soft, Tenderness (--mild diffuse). No: Firm/Rigid, Guarding, Hepatomegaly, Mass, Pulsatile Mass ...Percussion: Yes: Tympanitic Labs: CBC, BMP 08/05/19 07:12 08/05/19 07:12 INR, PTT INR Cancelled 08/02/19 20:30 Problem List - Problems (1) Abdominal pain Assessment/Plan: etiology unclear, ? SIBO, IBS, doubt seconadry to gastric lesion R>consider Flagyl 250mg tid stool c diff low fiber , lactose free diet Code(s): R10.9 - UNSPECIFIED ABDOMINAL PAIN
[2019-08-05] MEDS: DOCUSATE SODIUM 100 MG CAPSULE (FP) PO SCH (23:06)
[2019-08-05] MEDS: SENNOSIDES 8.6MG TABLET (FP) PO SCH (23:08)
[2019-08-05] MEDS: oxyCODONE HCL 5 MG TABLET PO PRN (23:08)
[2019-08-06] MEDS ORDERED: DEXTROSE 5%-WATER - 50 ML IVPB ONE ×3 (01:38→17:51)
[2019-08-06] MEDS ORDERED: PIPERACILLIN/TAZOBACTAM 2.25 GM VIAL IVPB ONE ×3 (01:38→17:51)
[2019-08-06] MEDS: CLINDAMYCIN 600MG PREMIX IVPB 600 MG/50 ML BAG IVPB SCH ×3 (02:33→18:06)
[2019-08-06] MEDS: PIPERACILLIN/TAZOB 2.25 GM 2.25 GM in DEXTROSE 5%-WATER - 50 ML IVPB SCH ×3 (02:33→18:10)
[2019-08-06] MEDS ORDERED: DEXTROSE 50%-WATER - 25 GM/50 ML VIAL IVPUSH ONE (05:47)
[2019-08-06] MEDS ORDERED: LEVOTHYROXINE NA 25 MCG TABLET (FP) ONE (05:52)
[2019-08-06] MEDS ORDERED: LEVOTHYROXINE NA 50 MCG TABLET (FP) ONE (05:52)
[2019-08-06] MEDS ORDERED: DEXTROSE 50%-WATER 25 GM/50 ML DISP.SYRIN ONE (05:55)
[2019-08-06] MEDS ORDERED: DEXTROSE 50%-WATER 25 GM/50 ML DISP.SYRIN IVPUSH ONE (06:00)
[2019-08-06] MEDS: LEVOTHYROXINE PO SCH (06:05)
[2019-08-06] MEDS: FUROSEMIDE 40 MG/4 ML INJECTABLE VIAL IVPUSH SCH (06:05)
[2019-08-06] MEDS: INSULIN SLIDING SCALE (NOVOLOG) 1 VIAL SQ SCH ×4 (06:07→21:47)
[2019-08-06 08:26] LABS: BLOOD UREA NITROGEN 36.9 mg/dL (7-18); CALCIUM 8.6 mg/dL (8.5-10.1); CREATININE 2.9 mg/dL (0.55-1.3); POTASSIUM 4.2 mmol/L (3.5-5.1)
--- NOTE | 2019-08-06 09:58 | PN ---
Progress Note (short form) - Note Progress Note: pt seen/ examined chart reviewed awake comfortable chronic ill appearance abd pain/ diarrhea better back pain better Vital Signs Temp 97.1 F L 08/06/19 06:00 Pulse 74 08/06/19 06:00 Resp 20 08/06/19 06:00 BP 120/77 08/06/19 06:00 Pulse Ox 98 08/05/19 21:00 Intake & Output 08/05/19 08/05/19 08/06/19 11:59 23:59 11:59 Intake Total 850 600 750 Balance 850 600 750 Weight 155 lb Intake: IVPB 150 150 Oral 700 600 600 Other: Voiding Method Diaper Diaper # Unmeasured Voids Void 2 Bowel Movement Yes # Bowel Movements 1 Height 4 ft 11 in Body Mass Index (BMI) 31.3 Active Medications Acetaminophen (Tylenol -) 650 mg PO Q6H PRN PRN Reason: Fever Or Pain Albuterol Sulfate (Ventolin 0.083% Nebulizer Soln -) 1 amp NEB Q6H PRN PRN Reason: ASTHMA Calcium Carbonate (Os-Mauri 500mg -) 500 mg PO BID [facility] Last Admin: 08/05/19 23:07 Dose: 500 mg Cyclobenzaprine HCl (Cyclobenzaprine Hcl) 5 mg PO BID PRN PRN Reason: MUSCLE SPASMS Docusate Sodium (Colace -) 300 mg PO HS [facility] Last Admin: 08/05/19 23:06 Dose: Not Given Fentanyl (Duragesic 25mcg Patch -) 1 patch TD Q72H [facility] Stop: 08/11/19 12:20 Last Admin: 08/04/19 13:16 Dose: 1 patch Guaifenesin (Robitussin Dm -) 10 ml PO Q4H PRN PRN Reason: COUGH Heparin Sodium (Porcine) (Heparin -) 5,000 unit SQ BID [facility] Last Admin: 08/05/19 23:05 Dose: 5,000 unit Clindamycin Phosphate (Cleocin 600 Mg Premix Ivpb -) 600 mg in 50 mls @ 100 mls /hr IVPB Q8H-IV [facility]; Protocol Last Admin: 08/06/19 02:33 Dose: 100 mls/hr Piperacillin Sod/Tazobactam (Sod 2.25 gm/ Dextrose) 50 mls @ 100 mls/hr IVPB Q8H-IV [facility]; Protocol Last Admin: 08/06/19 02:33 Dose: 100 mls/hr Insulin Aspart (Novolog Vial Sliding Scale -) 1 vial SQ ACHS [facility]; Protocol Last Admin: 08/06/19 06:07 Dose: Not Given Levothyroxine Sodium 50 mcg/ (Levothyroxine Sodium 12.5 mcg) 62.5 mcg PO DAILY@ 0700 [facility] Last Admin: 08/06/19 06:05 Dose: 62.5 mcg Metoprolol Succinate (Toprol Xl -) 25 mg PO DAILY [facility] Last Admin: 08/05/19 11:16 Dose: 25 mg Miscellaneous (Duragesic Patch Waste) 1 each MC PRN PRN PRN Reason: PAIN Non-Formulary Medication (Lidocaine [Aspercreme]) 1 each TP DAILY [facility] Polyethylene Glycol (Miralax (For Daily Use) -) 17 gm PO BID [facility] Last Admin: 08/05/19 23:06 Dose: Not Given Senna (Senna -) 2 tab PO HS [facility] Last Admin: 08/05/19 23:08 Dose: Not Given Triamcinolone Acetonide (Aristocort 0.1% Cream -) 1 applic TP BID [facility] Last Admin: 08/05/19 23:08 Dose: Not Given CBC, BMP 08/05/19 07:12 08/06/19 07:08 Microbiology 08/03/19 07:05 Blood Culture - Preliminary Blood - Peripheral Venous NO GROWTH OBTAINED AFTER 72 HOURS, INCUBATION TO CONTINUE FOR 2 DAYS. 08/03/19 07:10 Blood Culture - Preliminary Blood - Peripheral Venous NO GROWTH OBTAINED AFTER 72 HOURS, INCUBATION TO CONTINUE FOR 2 DAYS. 08/03/19 09:12 Urine Culture - Final Urine - Urine - Catheterized Klebsiella Pneumoniae Proteus Mirabilis mri-- cute T!2- L1 # Physical Awake. Chronic ill appearance S1 S2 irregular lungs decreased abd-- anasarca+ multiple psoriatic lesions on abd and legs. soft tender lower back leg wound right -- dressing in place wound right leg PLAN CHF systolic decompensation-- -- cardiology eval noted -- previous echo from April noted -- EF 35% -- iv lasix -- monitor output -- renal function-- monitor Cellulitis -- on iv antibiotics -- ID eval noted -- wound care renal failure -- acute on chronic -- monitor while on iv lasix -- renal consult appreciated Back pain -- h/o breast CA -- c/o severe pain -- started Fentanyl patch --MRI LS spine --Acute # T12- L1 -- PT eval Monitor BGm -- Pt has brittle Diabetes Problem List - Problems (1) Back pain Code(s): M54.9 - DORSALGIA, UNSPECIFIED (2) Abdominal pain Code(s): R10.9 - UNSPECIFIED ABDOMINAL PAIN (3) Acute exacerbation of CHF (congestive heart failure) Code(s): I50.9 - HEART FAILURE, UNSPECIFIED Qualifiers: Heart failure type: unspecified Qualified Code(s): I50.9 - Heart failure, unspecified (4) Anasarca Code(s): R60.1 - GENERALIZED EDEMA (5) Pleural effusion Code(s): J90 - PLEURAL EFFUSION, NOT ELSEWHERE CLASSIFIED (6) Acute renal failure superimposed on chronic kidney disease Code(s): N17.9 - ACUTE KIDNEY FAILURE, UNSPECIFIED; N18.9 - CHRONIC KIDNEY DISEASE, UNSPECIFIED (7) Anemia Code(s): D64.9 - ANEMIA, UNSPECIFIED (8) Anemia in chronic kidney disease Code(s): N18.9 - CHRONIC KIDNEY DISEASE, UNSPECIFIED; D63.1 - ANEMIA IN CHRONIC KIDNEY DISEASE (9) Breast cancer Code(s): C50.919 - MALIGNANT NEOPLASM OF UNSP SITE OF UNSPECIFIED FEMALE BREAST (10) Cellulitis Code(s): L03.90 - CELLULITIS, UNSPECIFIED Qualifiers: Site of cellulitis: unspecified site Qualified Code(s): L03.90 - Cellulitis , unspecified (11) Diabetes type 1, uncontrolled Code(s): E10.65 - TYPE 1 DIABETES MELLITUS WITH HYPERGLYCEMIA (12) Diarrhea Code(s): R19.7 - DIARRHEA, UNSPECIFIED (13) Scleroderma Code(s): M34.9 - SYSTEMIC SCLEROSIS, UNSPECIFIED
--- NOTE | 2019-08-06 11:27 | PN ---
Progress Note, Physician History of Present Illness: no new issues - Current Medication List Current Medications: Active Medications Acetaminophen (Tylenol -) 650 mg PO Q6H PRN PRN Reason: Fever Or Pain Albuterol Sulfate (Ventolin 0.083% Nebulizer Soln -) 1 amp NEB Q6H PRN PRN Reason: ASTHMA Calcium Carbonate (Os-Mauri 500mg -) 500 mg PO BID [facility] Last Admin: 08/05/19 23:07 Dose: 500 mg Cyclobenzaprine HCl (Cyclobenzaprine Hcl) 5 mg PO BID PRN PRN Reason: MUSCLE SPASMS Docusate Sodium (Colace -) 300 mg PO HS [facility] Last Admin: 08/05/19 23:06 Dose: Not Given Fentanyl (Duragesic 25mcg Patch -) 1 patch TD Q72H [facility] Stop: 08/11/19 12:20 Last Admin: 08/04/19 13:16 Dose: 1 patch Guaifenesin (Robitussin Dm -) 10 ml PO Q4H PRN PRN Reason: COUGH Heparin Sodium (Porcine) (Heparin -) 5,000 unit SQ BID [facility] Last Admin: 08/05/19 23:05 Dose: 5,000 unit Clindamycin Phosphate (Cleocin 600 Mg Premix Ivpb -) 600 mg in 50 mls @ 100 mls /hr IVPB Q8H-IV [facility]; Protocol Last Admin: 08/06/19 02:33 Dose: 100 mls/hr Piperacillin Sod/Tazobactam (Sod 2.25 gm/ Dextrose) 50 mls @ 100 mls/hr IVPB Q8H-IV [facility]; Protocol Last Admin: 08/06/19 02:33 Dose: 100 mls/hr Insulin Aspart (Novolog Vial Sliding Scale -) 1 vial SQ ACHS [facility]; Protocol Last Admin: 08/06/19 06:07 Dose: Not Given Levothyroxine Sodium 50 mcg/ (Levothyroxine Sodium 12.5 mcg) 62.5 mcg PO DAILY@ 0700 [facility] Last Admin: 08/06/19 06:05 Dose: 62.5 mcg Metoprolol Succinate (Toprol Xl -) 25 mg PO DAILY [facility] Last Admin: 08/05/19 11:16 Dose: 25 mg Miscellaneous (Duragesic Patch Waste) 1 each [facility] PRN PRN PRN Reason: PAIN Non-Formulary Medication (Lidocaine [Aspercreme]) 1 each TP DAILY [facility] Polyethylene Glycol (Miralax (For Daily Use) -) 17 gm PO BID [facility] Last Admin: 08/05/19 23:06 Dose: Not Given Senna (Senna -) 2 tab PO HS [facility] Last Admin: 08/05/19 23:08 Dose: Not Given Triamcinolone Acetonide (Aristocort 0.1% Cream -) 1 applic TP BID [facility] Last Admin: 08/05/19 23:08 Dose: Not Given - Objective Vital Signs: Vital Signs Temperature 97.1 F L 08/06/19 06:00 Pulse Rate 74 08/06/19 06:00 Respiratory Rate 20 08/06/19 06:00 Blood Pressure 120/77 08/06/19 06:00 O2 Sat by Pulse Oximetry (%) 98 08/05/19 21:00 Constitutional: Yes: No Distress, Calm Cardiovascular: Yes: S1, S2 Respiratory: Yes: Regular, CTA Bilaterally Gastrointestinal: Yes: Normal Bowel Sounds, Soft Musculoskeletal: Yes: WNL Extremities: Yes: Other Wound/Incision: Yes: Dressing Dry and Intact Neurological: Yes: Alert, Oriented Psychiatric: Yes: Alert, Oriented Labs: CBC, BMP 08/05/19 07:12 08/06/19 07:08 INR, PTT INR Cancelled 08/02/19 20:30 Assessment/Plan Problem List - Problems (1) Acute exacerbation of CHF (congestive heart failure) Code(s): I50.9 - HEART FAILURE, UNSPECIFIED Qualifiers: Heart failure type: unspecified Qualified Code(s): I50.9 - Heart failure, unspecified (2) Anasarca Code(s): R60.1 - GENERALIZED EDEMA (3) Pleural effusion Code(s): J90 - PLEURAL EFFUSION, NOT ELSEWHERE CLASSIFIED (4) Acute renal failure Code(s): N17.9 - ACUTE KIDNEY FAILURE, UNSPECIFIED (5) Acute renal failure superimposed on chronic kidney disease Code(s): N17.9 - ACUTE KIDNEY FAILURE, UNSPECIFIED; N18.9 - CHRONIC KIDNEY DISEASE, UNSPECIFIED (6) Anemia Code(s): D64.9 - ANEMIA, UNSPECIFIED cellulitis of the leg wound on the leg plan continue iv abx urine cx result and sensitivities noted wound care rest as per the team
[2019-08-06] MEDS: metoPROLOL SUCCINATE 25 MG TAB.SR.24H (FP) PO SCH (11:28)
[2019-08-06] MEDS: CALCIUM (OYSTER SHELL) 500 MG TABLET (FP) PO SCH ×2 (11:33→21:46)
[2019-08-06] MEDS: HEPARIN NA (PORCINE) 5,000 UNITS/ML 1ML VIAL SQ SCH ×2 (11:33→21:46)
[2019-08-06] MEDS: POLYETHYLENE GLYCOL 3350 119 GM BTL PO SCH ×2 (11:34→21:47)
[2019-08-06] MEDS: TRIAMCINOLONE ACET 0.1% CREAM 15 GM TUBE TP SCH ×2 (12:07→21:51)
--- NOTE | 2019-08-06 16:33 | PN ---
Progress Note, Physician History of Present Illness: seen and examined today in nad. feeling a little better. le edema and sob improved. - Current Medication List Current Medications: Active Medications Acetaminophen (Tylenol -) 650 mg PO Q6H PRN PRN Reason: Fever Or Pain Albuterol Sulfate (Ventolin 0.083% Nebulizer Soln -) 1 amp NEB Q6H PRN PRN Reason: ASTHMA Calcium Carbonate (Os-Mauri 500mg -) 500 mg PO BID [facility] Last Admin: 08/06/19 11:33 Dose: 500 mg Cyclobenzaprine HCl (Cyclobenzaprine Hcl) 5 mg PO BID PRN PRN Reason: MUSCLE SPASMS Docusate Sodium (Colace -) 300 mg PO HS [facility] Last Admin: 08/05/19 23:06 Dose: Not Given Fentanyl (Duragesic 25mcg Patch -) 1 patch TD Q72H [facility] Stop: 08/11/19 12:20 Last Admin: 08/04/19 13:16 Dose: 1 patch Guaifenesin (Robitussin Dm -) 10 ml PO Q4H PRN PRN Reason: COUGH Heparin Sodium (Porcine) (Heparin -) 5,000 unit SQ BID [facility] Last Admin: 08/06/19 11:33 Dose: 5,000 unit Clindamycin Phosphate (Cleocin 600 Mg Premix Ivpb -) 600 mg in 50 mls @ 100 mls /hr IVPB Q8H-IV [facility]; Protocol Last Admin: 08/06/19 10:33 Dose: 100 mls/hr Piperacillin Sod/Tazobactam (Sod 2.25 gm/ Dextrose) 50 mls @ 100 mls/hr IVPB Q8H-IV [facility]; Protocol Last Admin: 08/06/19 11:33 Dose: 100 mls/hr Insulin Aspart (Novolog Vial Sliding Scale -) 1 vial SQ ACHS [facility]; Protocol Last Admin: 08/06/19 11:41 Dose: Not Given Levothyroxine Sodium 50 mcg/ (Levothyroxine Sodium 12.5 mcg) 62.5 mcg PO DAILY@ 0700 [facility] Last Admin: 08/06/19 06:05 Dose: 62.5 mcg Metoprolol Succinate (Toprol Xl -) 25 mg PO DAILY [facility] Last Admin: 08/06/19 11:28 Dose: 25 mg Miscellaneous (Duragesic Patch Waste) 1 each [facility] PRN PRN PRN Reason: PAIN Non-Formulary Medication (Lidocaine [Aspercreme]) 1 each TP DAILY [facility] Polyethylene Glycol (Miralax (For Daily Use) -) 17 gm PO BID [facility] Last Admin: 08/06/19 11:34 Dose: Not Given Senna (Senna -) 2 tab PO HS [facility] Last Admin: 08/05/19 23:08 Dose: Not Given Triamcinolone Acetonide (Aristocort 0.1% Cream -) 1 applic TP BID [facility] Last Admin: 08/05/19 23:08 Dose: Not Given - Objective Vital Signs: Vital Signs Temperature 98.5 F 08/06/19 14:00 Pulse Rate 75 08/06/19 14:00 Respiratory Rate 20 08/06/19 14:00 Blood Pressure 126/54 L 08/06/19 14:00 O2 Sat by Pulse Oximetry (%) 98 08/05/19 21:00 Constitutional: Yes: No Distress, Calm Eyes: Yes: Conjunctiva Clear, EOM Intact HENT: Yes: Atraumatic, Normocephalic Neck: Yes: Supple, Trachea Midline Cardiovascular: Yes: Regular Rate and Rhythm, S1, S2. No: Bradycardia, Tachycardia, Pulse Irregular, Bruit, JVD, Gallop, Murmur, Rub, S3, S4, Varicosities Respiratory: Yes: Regular, Diminished, On Nasal O2. No: Rales, Rhonchi, SOB, Wheezes Gastrointestinal: Yes: Normal Bowel Sounds, Soft Edema: LLE: Trace, RLE: Trace Neurological: Yes: Alert, Oriented Psychiatric: Yes: Alert, Oriented Labs: CBC, BMP 08/05/19 07:12 08/06/19 07:08 INR, PTT INR Cancelled 08/02/19 20:30 - ....Imaging Chest X-ray: Report Reviewed, Image Reviewed EKG: Report Reviewed, Image Reviewed Other: Report Reviewed, Image Reviewed Assessment/Plan The patient is a 53 year old female with a history of DM, HTN, HLD, CKD, scleroderma, nephrolithasis, recurrent UTI's, Chronic systolic CHF (30-35% EF), and breast Ca S/P bilateral mastectomy, falls, anasarca who was sent to the ER for abdominal pain, also found with sob and pleural effusions on CXR. She denies chest pain but admits to worsening edema of the legs and abdomen, and orthopnea for 2-3 weeks. Needs 3-4 pillows to sleep. Echo 04/12/19: EF 30-35%, pleural effusion and pleural mass. RVSP 45mmHg. Nuclear Stress 04/22/19 Inferolateral infarct, no ischemia EF 37%. Impression: Acute on chronic biventricular CHF Anasarca 2/ 3rd spacing dur to hypoalbuminemia Plan: -b/l pleural effusions -bun/creat trending up slightly -Lasix was stopped today -was receiving IV lasix 40mg bid -likely developing intravascular depletion due to low intravascular oncotic pressure -pleural effusions do not generally rapidly respond to diuretics -consider thoracentesis if significant residual pleural effusions -otherwise would plan to resume diuretics when safe from renal standpoint but at lower dose po Lasix or consider Torsemide -cont low dose metoprolol as BP tolerates
--- NOTE | 2019-08-06 17:03 | PN ---
Progress Note (short form) - Note Progress Note: Renal follow up for GENESIS on CKD Seen and examined at the bedside feels better denies any sob at rest but still has dyspnea on exertion making urine oral intake is poor stilll feels weak Vital Signs Temperature 98.5 F 08/06/19 14:00 Pulse Rate 75 08/06/19 14:00 Respiratory Rate 20 08/06/19 14:00 Blood Pressure 126/54 L 08/06/19 14:00 O2 Sat by Pulse Oximetry (%) 98 08/05/19 21:00 Intake & Output 08/03/19 08/04/19 08/05/19 08/06/19 23:59 23:59 23:59 23:59 Intake Total 190 053 6554 750 Balance 707 409 3919 750 Weight 70.579 kg 70.307 kg NAD on NC O2 RRR Dec BS mild abd distension + edema in LE CBC, BMP 08/05/19 07:12 08/06/19 07:08 Current Medications Acetaminophen (Tylenol -) 650 mg PO Q6H PRN PRN Reason: Fever Or Pain Albuterol Sulfate (Ventolin 0.083% Nebulizer Soln -) 1 amp NEB Q6H PRN PRN Reason: ASTHMA Calcium Carbonate (Os-Mauri 500mg -) 500 mg PO BID [facility] Last Admin: 08/06/19 11:33 Dose: 500 mg Cyclobenzaprine HCl (Cyclobenzaprine Hcl) 5 mg PO BID PRN PRN Reason: MUSCLE SPASMS Docusate Sodium (Colace -) 300 mg PO HS [facility] Last Admin: 08/05/19 23:06 Dose: Not Given Fentanyl (Duragesic 25mcg Patch -) 1 patch TD Q72H [facility] Stop: 08/11/19 12:20 Last Admin: 08/04/19 13:16 Dose: 1 patch Guaifenesin (Robitussin Dm -) 10 ml PO Q4H PRN PRN Reason: COUGH Heparin Sodium (Porcine) (Heparin -) 5,000 unit SQ BID [facility] Last Admin: 08/06/19 11:33 Dose: 5,000 unit Clindamycin Phosphate (Cleocin 600 Mg Premix Ivpb -) 600 mg in 50 mls @ 100 mls /hr IVPB Q8H-IV [facility]; Protocol Last Admin: 08/06/19 10:33 Dose: 100 mls/hr Piperacillin Sod/Tazobactam (Sod 2.25 gm/ Dextrose) 50 mls @ 100 mls/hr IVPB Q8H-IV [facility]; Protocol Last Admin: 08/06/19 11:33 Dose: 100 mls/hr Insulin Aspart (Novolog Vial Sliding Scale -) 1 vial SQ ACHS [facility]; Protocol Last Admin: 08/06/19 11:41 Dose: Not Given Levothyroxine Sodium 50 mcg/ (Levothyroxine Sodium 12.5 mcg) 62.5 mcg PO DAILY@ 0700 [facility] Last Admin: 08/06/19 06:05 Dose: 62.5 mcg Metoprolol Succinate (Toprol Xl -) 25 mg PO DAILY [facility] Last Admin: 08/06/19 11:28 Dose: 25 mg Miscellaneous (Duragesic Patch Waste) 1 each [facility] PRN PRN PRN Reason: PAIN Non-Formulary Medication (Lidocaine [Aspercreme]) 1 each TP DAILY [facility] Polyethylene Glycol (Miralax (For Daily Use) -) 17 gm PO BID [facility] Last Admin: 08/06/19 11:34 Dose: Not Given Senna (Senna -) 2 tab PO HS [facility] Last Admin: 08/05/19 23:08 Dose: Not Given Triamcinolone Acetonide (Aristocort 0.1% Cream -) 1 applic TP BID [facility] Last Admin: 08/05/19 23:08 Dose: Not Given 53 year old woman with history of CKD (baseline Cr 1.4-1.5), CHF, ETOH abuse, DM , Hypertension, hyperlipidemia, breast cancer s/p bilateral mastecotm, scleroderma and psoriasis presented from home with erythema in LE and noted to have Cr of 2.3. 1. Acute kidney injury in setting of fluid overload/CHF 2. CKD stage 3 3. Hx of CHF 4. Edema of LE 5. cellulitis of LE BUN/Cr increasing in setting of BID IV Lasix. Will change to Lasix once daily IV as pt still has signifincat edmea in sacrum as well and rales on physical examination. f/u serologic work up Dose all meds for Cr Cl < 20 avoid IV contrast, NSAIDs or other nephrotoxins Trend renal function and electrolytes daily Thank you Efraín Barillas DO
[2019-08-06] MEDS ORDERED: diphenhydrAMINE HCL 25 MG CAPSULE (FP) PO ONE (20:21)
[2019-08-06] MEDS: SENNOSIDES 8.6MG TABLET (FP) PO SCH (21:47)
[2019-08-06] MEDS: DOCUSATE SODIUM 100 MG CAPSULE (FP) PO SCH (21:47)
[2019-08-07] MEDS ORDERED: PIPERACILLIN/TAZOBACTAM 2.25 GM VIAL IVPB ONE ×2 (01:06→10:56)
[2019-08-07] MEDS ORDERED: DEXTROSE 5%-WATER - 50 ML IVPB ONE ×2 (01:06→10:56)
[2019-08-07] MEDS: PIPERACILLIN/TAZOB 2.25 GM 2.25 GM in DEXTROSE 5%-WATER - 50 ML IVPB SCH ×3 (01:16→18:57)
[2019-08-07] MEDS: CLINDAMYCIN 600MG PREMIX IVPB 600 MG/50 ML BAG IVPB SCH ×3 (01:16→18:57)
[2019-08-07] MEDS ORDERED: LEVOTHYROXINE NA 25 MCG TABLET (FP) ONE (06:12)
[2019-08-07] MEDS ORDERED: LEVOTHYROXINE NA 50 MCG TABLET (FP) ONE (06:12)
[2019-08-07] MEDS: INSULIN SLIDING SCALE (NOVOLOG) 1 VIAL SQ SCH ×4 (06:41→22:26)
[2019-08-07] MEDS: LEVOTHYROXINE PO SCH (06:42)
[2019-08-07 08:27] LABS: CALCIUM 8.8 mg/dL (8.5-10.1); CREATININE 3.1 mg/dL (0.55-1.3); MAGNESIUM 2.3 mg/dL (1.8-2.4); PHOSPHOROUS 6.1 mg/dL (2.5-4.9); POTASSIUM 4.9 mmol/L (3.5-5.1)
--- NOTE | 2019-08-07 08:58 | PN ---
Progress Note, Physician History of Present Illness: no new issues stable - Current Medication List Current Medications: Active Medications Acetaminophen (Tylenol -) 650 mg PO Q6H PRN PRN Reason: Fever Or Pain Albuterol Sulfate (Ventolin 0.083% Nebulizer Soln -) 1 amp NEB Q6H PRN PRN Reason: ASTHMA Calcium Carbonate (Os-Mauri 500mg -) 500 mg PO BID [facility] Last Admin: 08/06/19 21:46 Dose: 500 mg Cyclobenzaprine HCl (Cyclobenzaprine Hcl) 5 mg PO BID PRN PRN Reason: MUSCLE SPASMS Darbepoetin Nikolas (Aranesp -) 25 mcg SQ Q7D@1000 [facility] Docusate Sodium (Colace -) 300 mg PO HS [facility] Last Admin: 08/06/19 21:47 Dose: Not Given Fentanyl (Duragesic 25mcg Patch -) 1 patch TD Q72H [facility] Stop: 08/11/19 12:20 Last Admin: 08/04/19 13:16 Dose: 1 patch Furosemide (Lasix Injection -) 40 mg IVPUSH DAILY [facility] Guaifenesin (Robitussin Dm -) 10 ml PO Q4H PRN PRN Reason: COUGH Heparin Sodium (Porcine) (Heparin -) 5,000 unit SQ BID [facility] Last Admin: 08/06/19 21:46 Dose: 5,000 unit Clindamycin Phosphate (Cleocin 600 Mg Premix Ivpb -) 600 mg in 50 mls @ 100 mls /hr IVPB Q8H-IV [facility]; Protocol Last Admin: 08/07/19 01:16 Dose: 100 mls/hr Piperacillin Sod/Tazobactam (Sod 2.25 gm/ Dextrose) 50 mls @ 100 mls/hr IVPB Q8H-IV [facility]; Protocol Last Admin: 08/07/19 01:16 Dose: 100 mls/hr Insulin Aspart (Novolog Vial Sliding Scale -) 1 vial SQ ACHS [facility]; Protocol Last Admin: 08/07/19 06:41 Dose: 2 units Levothyroxine Sodium 50 mcg/ (Levothyroxine Sodium 12.5 mcg) 62.5 mcg PO DAILY@ 0700 [facility] Last Admin: 08/07/19 06:42 Dose: 62.5 mcg Metoprolol Succinate (Toprol Xl -) 25 mg PO DAILY [facility] Last Admin: 08/06/19 11:28 Dose: 25 mg Miscellaneous (Duragesic Patch Waste) 1 each MC PRN PRN PRN Reason: PAIN Non-Formulary Medication (Lidocaine [Aspercreme]) 1 each TP DAILY [facility] Polyethylene Glycol (Miralax (For Daily Use) -) 17 gm PO BID [facility] Last Admin: 08/06/19 21:47 Dose: Not Given Senna (Senna -) 2 tab PO HS [facility] Last Admin: 08/06/19 21:47 Dose: Not Given Triamcinolone Acetonide (Aristocort 0.1% Cream -) 1 applic TP BID [facility] Last Admin: 08/06/19 21:51 Dose: 1 applic - Objective Vital Signs: Vital Signs Temperature 98.4 F 08/06/19 21:00 Pulse Rate 68 08/06/19 21:00 Respiratory Rate 18 08/06/19 21:00 Blood Pressure 139/71 08/06/19 21:00 O2 Sat by Pulse Oximetry (%) 99 08/06/19 21:00 Constitutional: Yes: No Distress, Calm Cardiovascular: Yes: S1, S2 Respiratory: Yes: Regular, CTA Bilaterally Gastrointestinal: Yes: Normal Bowel Sounds, Soft Musculoskeletal: Yes: WNL Extremities: Yes: Other Wound/Incision: Yes: Dressing Dry and Intact Neurological: Yes: Alert, Oriented Labs: CBC, BMP 08/05/19 07:12 08/07/19 07:45 INR, PTT INR Cancelled 08/02/19 20:30 Assessment/Plan Problem List - Problems (1) Acute exacerbation of CHF (congestive heart failure) Code(s): I50.9 - HEART FAILURE, UNSPECIFIED Qualifiers: Heart failure type: unspecified Qualified Code(s): I50.9 - Heart failure, unspecified (2) Anasarca Code(s): R60.1 - GENERALIZED EDEMA (3) Pleural effusion Code(s): J90 - PLEURAL EFFUSION, NOT ELSEWHERE CLASSIFIED (4) Acute renal failure Code(s): N17.9 - ACUTE KIDNEY FAILURE, UNSPECIFIED (5) Acute renal failure superimposed on chronic kidney disease Code(s): N17.9 - ACUTE KIDNEY FAILURE, UNSPECIFIED; N18.9 - CHRONIC KIDNEY DISEASE, UNSPECIFIED (6) Anemia Code(s): D64.9 - ANEMIA, UNSPECIFIED cellulitis of the leg wound on the leg plan continue iv abx urine cx result and sensitivities noted wound care rest as per the team
[2019-08-07] MEDS ORDERED: PT OWN MED DRAWER 7, Y5N ONE ×3 (10:55→18:01)
[2019-08-07] MEDS: FUROSEMIDE 40 MG/4 ML INJECTABLE VIAL IVPUSH SCH (11:09)
[2019-08-07] MEDS: metoPROLOL SUCCINATE 25 MG TAB.SR.24H (FP) PO SCH (11:15)
[2019-08-07] MEDS: HEPARIN NA (PORCINE) 5,000 UNITS/ML 1ML VIAL SQ SCH ×2 (11:16→22:26)
[2019-08-07] MEDS: CALCIUM (OYSTER SHELL) 500 MG TABLET (FP) PO SCH ×2 (11:16→22:26)
[2019-08-07] MEDS: POLYETHYLENE GLYCOL 3350 119 GM BTL PO SCH ×2 (11:16→22:12)
[2019-08-07] MEDS: TRIAMCINOLONE ACET 0.1% CREAM 15 GM TUBE TP SCH (11:18)
--- NOTE | 2019-08-07 12:32 | PN ---
Progress Note (short form) - Note Progress Note: RENAL Pt is awake and alert no specific complaints says she urinates Last Vital Signs Temp Pulse Resp BP Pulse Ox 98 F 70 18 134/83 99 08/07/19 11:38 08/07/19 11:38 08/07/19 11:38 08/07/19 11:38 08/07/19 09:00 lungs bilat air entry cvs s1s2 rr abd soft ext no edema neuro a+ox3 CBC, BMP 08/05/19 07:12 08/07/19 07:45 Current Medications Generic Name Dose Route Start Last Admin Trade Name Freq PRN Reason Stop Dose Admin Acetaminophen 650 mg 08/03/19 04:16 Tylenol - PO Q6H PRN Fever Or Pain Albuterol Sulfate 1 amp 08/03/19 04:16 Ventolin 0.083% Nebulizer Soln - NEB Q6H PRN [facility] Calcium Carbonate 500 mg 08/03/19 10:00 08/07/19 11:16 Os-Mauri 500mg - PO 500 mg BID [facility] Administration Cyclobenzaprine HCl 5 mg 08/03/19 04:16 Cyclobenzaprine Hcl PO BID PRN MUSCLE SPASMS Darbepoetin Nikolas 25 mcg 08/07/19 10:00 Aranesp - SQ Q7D@1000 [facility] Docusate Sodium 300 mg 08/03/19 22:00 08/06/19 21:47 Colace - PO Not Given HS [facility] Fentanyl 1 patch 08/04/19 12:30 08/04/19 13:16 Duragesic 25mcg Patch - TD 08/11/19 12:20 1 patch Q72H [facility] Administration Furosemide 40 mg 08/07/19 10:00 08/07/19 11:09 Lasix Injection - IVPUSH 40 mg DAILY [facility] Administration Guaifenesin 10 ml 08/03/19 04:16 Robitussin Dm - PO Q4H PRN COUGH Heparin Sodium (Porcine) 5,000 unit 08/03/19 10:00 08/07/19 11:16 Heparin - SQ 5,000 unit BID [facility] Administration Clindamycin Phosphate 600 mg in 50 mls @ 100 mls/hr 08/03/19 10:00 08/07/19 11:15 Cleocin 600 Mg Premix Ivpb - IVPB 100 mls/hr Q8H-IV [facility] Administration Protocol Piperacillin Sod/Tazobactam 50 mls @ 100 mls/hr 08/03/19 13:00 08/07/19 11:15 Sod 2.25 gm/ Dextrose IVPB 100 mls/hr Q8H-IV [facility] Administration Protocol Insulin Aspart 1 vial 08/03/19 07:00 08/07/19 11:18 Novolog Vial Sliding Scale - SQ Not Given ACHS [facility] Protocol Levothyroxine Sodium 50 mcg/ 62.5 mcg 08/03/19 07:00 08/07/19 06:42 Levothyroxine Sodium 12.5 mcg PO 62.5 mcg DAILY@0700 [facility] Administration Metoprolol Succinate 25 mg 08/03/19 10:00 08/07/19 11:15 Toprol Xl - PO 25 mg DAILY [facility] Administration Miscellaneous 1 each 08/04/19 12:20 Duragesic Patch Waste [facility] PRN PRN PAIN Polyethylene Glycol 17 gm 08/04/19 12:30 08/07/19 11:16 Miralax (For Daily Use) - PO Not Given BID [facility] Senna 2 tab 08/03/19 22:00 08/06/19 21:47 Senna - PO Not Given HS [facility] Triamcinolone Acetonide 1 applic 08/03/19 10:00 08/07/19 11:18 Aristocort 0.1% Cream - TP 1 applic BID [facility] Administration 53 year old woman with history of CKD (baseline Cr 1.4-1.5), CHF, ETOH abuse, DM , Hypertension, hyperlipidemia, breast cancer s/p bilateral mastecotm, scleroderma and psoriasis presented from home with erythema in LE and noted to have Cr of 2.3. 1. Acute kidney injury in setting of fluid overload/CHF- nonproteinuric 2. CKD stage 3 3. Hx of CHF 4. Edema of LE 5. cellulitis of LE 6 hematuria check aso titer and repeat urinalysis f/u serologic work up Dose all meds for Cr Cl < 20 avoid IV contrast, NSAIDs or other nephrotoxins Trend renal function and electrolytes daily [facility]
--- NOTE | 2019-08-07 12:41 | PN ---
Progress Note (short form) - Note Progress Note: back pain better with pain meds Vital Signs - 24 hr 08/06/19 08/06/19 08/06/19 14:00 18:09 21:00 Temperature 98.5 F 98.4 F 98.4 F Pulse Rate 75 70 68 Respiratory 20 20 18 Rate Blood Pressure 126/54 L 126/65 139/71 O2 Sat by Pulse 99 Oximetry (%) 08/07/19 08/07/19 09:00 11:38 Temperature 98 F 98 F Pulse Rate 69 70 Respiratory 18 18 Rate Blood Pressure 130/71 134/83 O2 Sat by Pulse 99 Oximetry (%) Current Medications Generic Name Dose Route Start Last Admin Trade Name Freq PRN Reason Stop Dose Admin Acetaminophen 650 mg 08/03/19 04:16 Tylenol - PO Q6H PRN Fever Or Pain Albuterol Sulfate 1 amp 08/03/19 04:16 Ventolin 0.083% Nebulizer Soln - NEB Q6H PRN [facility] Calcium Carbonate 500 mg 08/03/19 10:00 08/07/19 11:16 Os-Mauri 500mg - PO 500 mg BID [facility] Administration Cyclobenzaprine HCl 5 mg 08/03/19 04:16 Cyclobenzaprine Hcl PO BID PRN MUSCLE SPASMS Darbepoetin Nikolas 25 mcg 08/07/19 10:00 Aranesp - SQ Q7D@1000 [facility] Docusate Sodium 300 mg 08/03/19 22:00 08/06/19 21:47 Colace - PO Not Given HS [facility] Fentanyl 1 patch 08/04/19 12:30 08/04/19 13:16 Duragesic 25mcg Patch - TD 08/11/19 12:20 1 patch Q72H [facility] Administration Furosemide 40 mg 08/07/19 10:00 08/07/19 11:09 Lasix Injection - IVPUSH 40 mg DAILY [facility] Administration Guaifenesin 10 ml 08/03/19 04:16 Robitussin Dm - PO Q4H PRN COUGH Heparin Sodium (Porcine) 5,000 unit 08/03/19 10:00 08/07/19 11:16 Heparin - SQ 5,000 unit BID [facility] Administration Clindamycin Phosphate 600 mg in 50 mls @ 100 mls/hr 08/03/19 10:00 08/07/19 11:15 Cleocin 600 Mg Premix Ivpb - IVPB 100 mls/hr Q8H-IV [facility] Administration Protocol Piperacillin Sod/Tazobactam 50 mls @ 100 mls/hr 08/03/19 13:00 08/07/19 11:15 Sod 2.25 gm/ Dextrose IVPB 100 mls/hr Q8H-IV [facility] Administration Protocol Insulin Aspart 1 vial 08/03/19 07:00 08/07/19 11:18 Novolog Vial Sliding Scale - SQ Not Given ACHS [facility] Protocol Levothyroxine Sodium 50 mcg/ 62.5 mcg 08/03/19 07:00 08/07/19 06:42 Levothyroxine Sodium 12.5 mcg PO 62.5 mcg DAILY@0700 [facility] Administration Metoprolol Succinate 25 mg 08/03/19 10:00 08/07/19 11:15 Toprol Xl - PO 25 mg DAILY [facility] Administration Miscellaneous 1 each 08/04/19 12:20 Duragesic Patch Waste [facility] PRN PRN PAIN Polyethylene Glycol 17 gm 08/04/19 12:30 08/07/19 11:16 Miralax (For Daily Use) - PO Not Given BID [facility] Senna 2 tab 08/03/19 22:00 08/06/19 21:47 Senna - PO Not Given HS [facility] Triamcinolone Acetonide 1 applic 08/03/19 10:00 08/07/19 11:18 Aristocort 0.1% Cream - TP 1 applic BID [facility] Administration Laboratory Results - last 24 hr 08/06/19 08/06/19 08/07/19 17:43 21:42 01:19 Sodium Potassium Chloride Carbon Dioxide Anion Gap BUN Creatinine Est GFR (CKD-EPI)AfAm Est GFR (CKD-EPI)NonAf POC Glucometer 284 308 234 Random Glucose Calcium Phosphorus Magnesium 08/07/19 08/07/19 08/07/19 06:38 07:45 11:13 Sodium 131 L Potassium 4.9 Chloride 91 L Carbon Dioxide 33 H Anion Gap 7 L BUN 36.0 H Creatinine 3.1 H Est GFR (CKD-EPI)AfAm 18.97 Est GFR (CKD-EPI)NonAf 16.37 POC Glucometer 212 114 Random Glucose 193 H Calcium 8.8 Phosphorus 6.1 H Magnesium 2.3 MRI- LS spine noted CT abd /pelvis repeated culture --noted S1 S2 irregular lungs decreased abd-- anasarca+erythema abd wal,, tender, multiple psoriatic lesions on abd and legs tender lower back leg wound right -- dressing in place wound right leg PLAN CHF systolic decompensation-- -- previous echo from April noted -- EF 35% -- iv lasix -- monitor output -- renal function worsening Cellulitis -- on iv antibiotics -- ID eval noted -- wound care renal failure -- acute on chronic -- monitor while on iv lasix -- worsening on iv lasix-- may need to change diuretics Back pain -- h/o breast CA -- c/o severe pain -- on Fentanyl patch -- PT eval repeat CT abd-- same Problem List - Problems (1) Acute exacerbation of CHF (congestive heart failure) Code(s): I50.9 - HEART FAILURE, UNSPECIFIED Qualifiers: Heart failure type: unspecified Qualified Code(s): I50.9 - Heart failure, unspecified (2) Anasarca Code(s): R60.1 - GENERALIZED EDEMA (3) Pleural effusion Code(s): J90 - PLEURAL EFFUSION, NOT ELSEWHERE CLASSIFIED (4) Acute renal failure Code(s): N17.9 - ACUTE KIDNEY FAILURE, UNSPECIFIED (5) Acute renal failure superimposed on chronic kidney disease Code(s): N17.9 - ACUTE KIDNEY FAILURE, UNSPECIFIED; N18.9 - CHRONIC KIDNEY DISEASE, UNSPECIFIED (6) Anemia Code(s): D64.9 - ANEMIA, UNSPECIFIED
[2019-08-07] MEDS: Darbepoetin Alfa in Polysorbat 25 MCG/0.4 ML DISP.SYRIN SQ SCH (18:57)
[2019-08-07] MEDS: fentaNYL 25mcg/hr PATCH.TD72 TD SCH (18:57)
[2019-08-07] MEDS: PATIENT'S OWN MEDICATION (NON-FORMULARY) (Lidocaine [Aspercreme] 1 EACH) TP SCH ×3 (20:21→20:23)
[2019-08-07] MEDS: DOCUSATE SODIUM 100 MG CAPSULE (FP) PO SCH (22:12)
[2019-08-07] MEDS: SENNOSIDES 8.6MG TABLET (FP) PO SCH (22:13)
[2019-08-08] MEDS ORDERED: DEXTROSE 5%-WATER - 50 ML IVPB ONE ×3 (00:32→17:46)
[2019-08-08] MEDS ORDERED: PIPERACILLIN/TAZOBACTAM 2.25 GM VIAL IVPB ONE ×3 (00:32→17:46)
[2019-08-08] MEDS: TRIAMCINOLONE ACET 0.1% CREAM 15 GM TUBE TP SCH ×3 (01:52→22:07)
[2019-08-08] MEDS: CLINDAMYCIN 600MG PREMIX IVPB 600 MG/50 ML BAG IVPB SCH ×3 (02:03→18:30)
[2019-08-08] MEDS: PIPERACILLIN/TAZOB 2.25 GM 2.25 GM in DEXTROSE 5%-WATER - 50 ML IVPB SCH ×3 (02:03→18:30)
[2019-08-08] MEDS ORDERED: LEVOTHYROXINE NA 25 MCG TABLET (FP) ONE (05:04)
[2019-08-08] MEDS ORDERED: LEVOTHYROXINE NA 50 MCG TABLET (FP) ONE (05:04)
[2019-08-08] MEDS: LEVOTHYROXINE PO SCH (06:12)
[2019-08-08] MEDS: INSULIN SLIDING SCALE (NOVOLOG) 1 VIAL SQ SCH ×4 (06:51→22:42)
--- NOTE | 2019-08-08 09:31 | PN ---
Progress Note, Physician History of Present Illness: patient doing well pain better - Current Medication List Current Medications: Active Medications Acetaminophen (Tylenol -) 650 mg PO Q6H PRN PRN Reason: Fever Or Pain Calcium Carbonate (Os-Mauri 500mg -) 500 mg PO BID [facility] Last Admin: 08/07/19 22:26 Dose: 500 mg Cyclobenzaprine HCl (Cyclobenzaprine Hcl) 5 mg PO BID PRN PRN Reason: MUSCLE SPASMS Darbepoetin Nikolas (Aranesp -) 25 mcg SQ Q7D@1000 [facility] Last Admin: 08/07/19 18:57 Dose: 25 mcg Docusate Sodium (Colace -) 300 mg PO HS [facility] Last Admin: 08/07/19 22:12 Dose: Not Given Fentanyl (Duragesic 25mcg Patch -) 1 patch TD Q72H [facility] Stop: 08/11/19 12:20 Last Admin: 08/07/19 18:57 Dose: 1 patch Furosemide (Lasix Injection -) 40 mg IVPUSH DAILY [facility] Last Admin: 08/07/19 11:09 Dose: 40 mg Guaifenesin (Robitussin Dm -) 10 ml PO Q4H PRN PRN Reason: COUGH Heparin Sodium (Porcine) (Heparin -) 5,000 unit SQ BID [facility] Last Admin: 08/07/19 22:26 Dose: 5,000 unit Clindamycin Phosphate (Cleocin 600 Mg Premix Ivpb -) 600 mg in 50 mls @ 100 mls /hr IVPB Q8H-IV [facility]; Protocol Last Admin: 08/08/19 02:03 Dose: 100 mls/hr Piperacillin Sod/Tazobactam (Sod 2.25 gm/ Dextrose) 50 mls @ 100 mls/hr IVPB Q8H-IV [facility]; Protocol Last Admin: 08/08/19 02:03 Dose: 100 mls/hr Insulin Aspart (Novolog Vial Sliding Scale -) 1 vial SQ ACHS [facility]; Protocol Last Admin: 08/08/19 06:51 Dose: Not Given Levothyroxine Sodium 50 mcg/ (Levothyroxine Sodium 12.5 mcg) 62.5 mcg PO DAILY@ 0700 [facility] Last Admin: 08/08/19 06:12 Dose: 62.5 mcg Metoprolol Succinate (Toprol Xl -) 25 mg PO DAILY [facility] Last Admin: 08/07/19 11:15 Dose: 25 mg Miscellaneous (Duragesic Patch Waste) 1 each [facility] PRN PRN PRN Reason: PAIN Polyethylene Glycol (Miralax (For Daily Use) -) 17 gm PO BID [facility] Last Admin: 08/07/19 22:12 Dose: Not Given Senna (Senna -) 2 tab PO HS [facility] Last Admin: 08/07/19 22:13 Dose: Not Given Triamcinolone Acetonide (Aristocort 0.1% Cream -) 1 applic TP BID [facility] Last Admin: 08/08/19 01:52 Dose: 1 applic - Objective Vital Signs: Vital Signs Temperature 98.1 F 08/08/19 05:12 Pulse Rate 74 08/08/19 05:12 Respiratory Rate 18 08/08/19 05:12 Blood Pressure 140/71 08/08/19 05:12 O2 Sat by Pulse Oximetry (%) 99 08/07/19 21:00 Constitutional: Yes: Calm, Mild Distress Cardiovascular: Yes: S1, S2 Respiratory: Yes: Regular, CTA Bilaterally Gastrointestinal: Yes: Normal Bowel Sounds, Soft Musculoskeletal: Yes: WNL Extremities: Yes: Other Wound/Incision: Yes: Dressing Dry and Intact Neurological: Yes: Alert, Oriented Psychiatric: Yes: Alert, Oriented Labs: CBC, BMP 08/05/19 07:12 08/07/19 07:45 INR, PTT INR Cancelled 08/02/19 20:30 Assessment/Plan Problem List - Problems (1) Acute exacerbation of CHF (congestive heart failure) Code(s): I50.9 - HEART FAILURE, UNSPECIFIED Qualifiers: Heart failure type: unspecified Qualified Code(s): I50.9 - Heart failure, unspecified (2) Anasarca Code(s): R60.1 - GENERALIZED EDEMA (3) Pleural effusion Code(s): J90 - PLEURAL EFFUSION, NOT ELSEWHERE CLASSIFIED (4) Acute renal failure Code(s): N17.9 - ACUTE KIDNEY FAILURE, UNSPECIFIED (5) Acute renal failure superimposed on chronic kidney disease Code(s): N17.9 - ACUTE KIDNEY FAILURE, UNSPECIFIED; N18.9 - CHRONIC KIDNEY DISEASE, UNSPECIFIED (6) Anemia Code(s): D64.9 - ANEMIA, UNSPECIFIED cellulitis of the leg wound on the leg plan continue iv abx urine cx result and sensitivities noted wound care rest as per the team will switch to po tomorrow
--- NOTE | 2019-08-08 10:13 | PN ---
Progress Note (short form) - Note Progress Note: back pain better with pain meds feeling better Vital Signs - 24 hr 08/07/19 08/07/19 08/07/19 18:00 21:00 22:13 Temperature 97.9 F 98.2 F Pulse Rate 73 69 Respiratory 18 18 Rate Blood Pressure 129/59 L 156/84 O2 Sat by Pulse 99 Oximetry (%) 08/08/19 08/08/19 08/08/19 05:12 09:00 11:00 Temperature 98.1 F 98.2 F Pulse Rate 74 73 Respiratory 18 18 18 Rate Blood Pressure 140/71 133/90 O2 Sat by Pulse 99 Oximetry (%) 08/08/19 14:51 Temperature 97.8 F Pulse Rate 71 Respiratory 18 Rate Blood Pressure 145/75 O2 Sat by Pulse Oximetry (%) Current Medications Generic Name Dose Route Start Last Admin Trade Name Freq PRN Reason Stop Dose Admin Acetaminophen 650 mg 08/03/19 04:16 Tylenol - PO Q6H PRN Fever Or Pain Calcium Carbonate 500 mg 08/03/19 10:00 08/08/19 11:10 Os-Mauri 500mg - PO 500 mg BID [facility] Administration Cyclobenzaprine HCl 5 mg 08/03/19 04:16 Cyclobenzaprine Hcl PO BID PRN MUSCLE SPASMS Darbepoetin Nikolas 25 mcg 08/07/19 10:00 08/07/19 18:57 Aranesp - SQ 25 mcg Q7D@1000 [facility] Administration Diphenhydramine HCl 25 mg 08/08/19 10:12 Benadryl - PO Q6H PRN FOR ITCHING Docusate Sodium 300 mg 08/03/19 22:00 08/07/19 22:12 Colace - PO Not Given HS [facility] Fentanyl 1 patch 08/04/19 12:30 08/07/19 18:57 Duragesic 25mcg Patch - TD 08/11/19 12:20 1 patch Q72H [facility] Administration Furosemide 40 mg 08/07/19 10:00 08/08/19 11:10 Lasix Injection - IVPUSH 40 mg DAILY [facility] Administration Guaifenesin 10 ml 08/03/19 04:16 Robitussin Dm - PO Q4H PRN COUGH Heparin Sodium (Porcine) 5,000 unit 08/03/19 10:00 08/08/19 11:10 Heparin - SQ 5,000 unit BID [facility] Administration Clindamycin Phosphate 600 mg in 50 mls @ 100 mls/hr 08/03/19 10:00 08/08/19 11:10 Cleocin 600 Mg Premix Ivpb - IVPB 100 mls/hr Q8H-IV [facility] Administration Protocol Piperacillin Sod/Tazobactam 50 mls @ 100 mls/hr 08/03/19 13:00 08/08/19 11:09 Sod 2.25 gm/ Dextrose IVPB 100 mls/hr Q8H-IV [facility] Administration Protocol Insulin Aspart 1 vial 08/03/19 07:00 08/08/19 11:23 Novolog Vial Sliding Scale - SQ Not Given ACHS [facility] Protocol Levothyroxine Sodium 50 mcg/ 62.5 mcg 08/03/19 07:00 08/08/19 06:12 Levothyroxine Sodium 12.5 mcg PO 62.5 mcg DAILY@0700 [facility] Administration Metoprolol Succinate 25 mg 08/03/19 10:00 08/08/19 11:10 Toprol Xl - PO 25 mg DAILY [facility] Administration Miscellaneous 1 each 08/04/19 12:20 Duragesic Patch Waste MC PRN PRN PAIN Polyethylene Glycol 17 gm 08/04/19 12:30 08/08/19 11:11 Miralax (For Daily Use) - PO Not Given BID [facility] Senna 2 tab 08/03/19 22:00 08/07/19 22:13 Senna - PO Not Given HS [facility] Triamcinolone Acetonide 1 applic 08/03/19 10:00 08/08/19 11:10 Aristocort 0.1% Cream - TP 1 applic BID [facility] Administration Laboratory Results - last 24 hr 08/06/19 08/07/19 08/07/19 07:08 07:45 18:54 POC Glucometer 204 ERICK Screen Negative Anti-Streptolysin Scrn 21.0 08/07/19 08/08/19 08/08/19 22:10 02:00 05:17 POC Glucometer 274 177 184 ERICK Screen Anti-Streptolysin Scrn 08/08/19 08/08/19 11:23 17:33 POC Glucometer 192 273 ERICK Screen Anti-Streptolysin Scrn MRI- LS spine noted CT abd /pelvis repeated culture --noted S1 S2 irregular lungs decreased abd-- anasarca+erythema abd wal,, tender, multiple psoriatic lesions on abd and legs tender lower back leg wound right -- dressing in place wound right leg decreased edema= PLAN CHF systolic decompensation-- -- previous echo from April noted -- EF 35% -- iv lasix dc due to worsening renal function -- monitor output Cellulitis -- on iv antibiotics -- ID eval noted -- wound care renal failure -- acute on chronic --monitor labs -- off lasix Back pain -- h/o breast CA -- c/o severe pain -- on Fentanyl patch -- PT eval repeat CT abd-- same Problem List - Problems (1) Acute exacerbation of CHF (congestive heart failure) Code(s): I50.9 - HEART FAILURE, UNSPECIFIED Qualifiers: Heart failure type: unspecified Qualified Code(s): I50.9 - Heart failure, unspecified (2) Anasarca Code(s): R60.1 - GENERALIZED EDEMA (3) Pleural effusion Code(s): J90 - PLEURAL EFFUSION, NOT ELSEWHERE CLASSIFIED (4) Acute renal failure Code(s): N17.9 - ACUTE KIDNEY FAILURE, UNSPECIFIED (5) Acute renal failure superimposed on chronic kidney disease Code(s): N17.9 - ACUTE KIDNEY FAILURE, UNSPECIFIED; N18.9 - CHRONIC KIDNEY DISEASE, UNSPECIFIED (6) Anemia Code(s): D64.9 - ANEMIA, UNSPECIFIED
[2019-08-08] MEDS: metoPROLOL SUCCINATE 25 MG TAB.SR.24H (FP) PO SCH (11:10)
[2019-08-08] MEDS: FUROSEMIDE 40 MG/4 ML INJECTABLE VIAL IVPUSH SCH (11:10)
[2019-08-08] MEDS: CALCIUM (OYSTER SHELL) 500 MG TABLET (FP) PO SCH ×2 (11:10→21:43)
[2019-08-08] MEDS: HEPARIN NA (PORCINE) 5,000 UNITS/ML 1ML VIAL SQ SCH ×2 (11:10→21:43)
[2019-08-08] MEDS: POLYETHYLENE GLYCOL 3350 119 GM BTL PO SCH ×2 (11:11→21:40)
--- NOTE | 2019-08-08 11:15 | PN ---
Progress Note (short form) - Note Progress Note: RENAL Pt is awake and alert tender in abdomen says she urinates Last Vital Signs Temp Pulse Resp BP Pulse Ox 98.1 F 74 18 140/71 99 08/08/19 05:12 08/08/19 05:12 08/08/19 05:12 08/08/19 05:12 08/07/19 21:00 lungs bilat air entry cvs s1s2 rr abd some areas of tenderness and induration bilaterally ext no edema neuro a+ox3 CBC, BMP 08/05/19 07:12 08/07/19 07:45 Current Medications Current Medications Generic Name Dose Route Start Last Admin Trade Name Freq PRN Reason Stop Dose Admin Acetaminophen 650 mg 08/03/19 04:16 Tylenol - PO Q6H PRN Fever Or Pain Calcium Carbonate 500 mg 08/03/19 10:00 08/07/19 22:26 Os-Mauri 500mg - PO 500 mg BID [facility] Administration Cyclobenzaprine HCl 5 mg 08/03/19 04:16 Cyclobenzaprine Hcl PO BID PRN MUSCLE SPASMS Darbepoetin Nikolas 25 mcg 08/07/19 10:00 08/07/19 18:57 Aranesp - SQ 25 mcg Q7D@1000 [facility] Administration Diphenhydramine HCl 25 mg 08/08/19 10:12 Benadryl - PO Q6H PRN FOR ITCHING Docusate Sodium 300 mg 08/03/19 22:00 08/07/19 22:12 Colace - PO Not Given HS [facility] Fentanyl 1 patch 08/04/19 12:30 08/07/19 18:57 Duragesic 25mcg Patch - TD 08/11/19 12:20 1 patch Q72H [facility] Administration Furosemide 40 mg 08/07/19 10:00 08/07/19 11:09 Lasix Injection - IVPUSH 40 mg DAILY [facility] Administration Guaifenesin 10 ml 08/03/19 04:16 Robitussin Dm - PO Q4H PRN COUGH Heparin Sodium (Porcine) 5,000 unit 08/03/19 10:00 08/07/19 22:26 Heparin - SQ 5,000 unit BID [facility] Administration Clindamycin Phosphate 600 mg in 50 mls @ 100 mls/hr 08/03/19 10:00 08/08/19 02:03 Cleocin 600 Mg Premix Ivpb - IVPB 100 mls/hr Q8H-IV [facility] Administration Protocol Piperacillin Sod/Tazobactam 50 mls @ 100 mls/hr 08/03/19 13:00 08/08/19 02:03 Sod 2.25 gm/ Dextrose IVPB 100 mls/hr Q8H-IV [facility] Administration Protocol Insulin Aspart 1 vial 08/03/19 07:00 08/08/19 06:51 Novolog Vial Sliding Scale - SQ Not Given ACHS [facility] Protocol Levothyroxine Sodium 50 mcg/ 62.5 mcg 08/03/19 07:00 08/08/19 06:12 Levothyroxine Sodium 12.5 mcg PO 62.5 mcg DAILY@0700 [facility] Administration Metoprolol Succinate 25 mg 08/03/19 10:00 08/07/19 11:15 Toprol Xl - PO 25 mg DAILY [facility] Administration Miscellaneous 1 each 08/04/19 12:20 Duragesic Patch Waste MC PRN PRN PAIN Polyethylene Glycol 17 gm 08/04/19 12:30 08/07/19 22:12 Miralax (For Daily Use) - PO Not Given BID [facility] Senna 2 tab 08/03/19 22:00 08/07/19 22:13 Senna - PO Not Given HS [facility] Triamcinolone Acetonide 1 applic 08/03/19 10:00 08/08/19 01:52 Aristocort 0.1% Cream - TP 1 applic BID [facility] Administration 53 year old woman with history of CKD (baseline Cr 1.4-1.5), CHF, ETOH abuse, DM , Hypertension, hyperlipidemia, breast cancer s/p bilateral mastecotm, scleroderma and psoriasis presented from home with erythema in LE and noted to have Cr of 2.3. 1. Acute kidney injury in setting of fluid overload/CHF- nonproteinuric 2. CKD stage 3- has extensive vascular calcification including renal arteries s/ o renovascular disease- she has no proteinuria 3. Hx of CHF 4. Edema of LE 5. cellulitis of LE 6 hematuria/anasarca PLAN repeat labs in am f/u serologic work up- aso is neg Dose all meds for Cr Cl < 20 avoid IV contrast, NSAIDs or other nephrotoxins Trend renal function and electrolytes daily check tsh MV
[2019-08-08] MEDS: DOCUSATE SODIUM 100 MG CAPSULE (FP) PO SCH (21:40)
[2019-08-08] MEDS: SENNOSIDES 8.6MG TABLET (FP) PO SCH (21:40)
[2019-08-09] MEDS ORDERED: PIPERACILLIN/TAZOBACTAM 2.25 GM VIAL IVPB ONE ×2 (00:34→10:03)
[2019-08-09] MEDS ORDERED: DEXTROSE 5%-WATER - 50 ML IVPB ONE ×2 (00:35→10:04)
[2019-08-09] MEDS: PIPERACILLIN/TAZOB 2.25 GM 2.25 GM in DEXTROSE 5%-WATER - 50 ML IVPB SCH ×2 (01:15→10:16)
[2019-08-09] MEDS: CLINDAMYCIN 600MG PREMIX IVPB 600 MG/50 ML BAG IVPB SCH ×2 (01:16→10:16)
[2019-08-09] MEDS ORDERED: LEVOTHYROXINE NA 25 MCG TABLET (FP) ONE (04:55)
[2019-08-09] MEDS ORDERED: LEVOTHYROXINE NA 50 MCG TABLET (FP) ONE (04:56)
[2019-08-09] MEDS: INSULIN SLIDING SCALE (NOVOLOG) 1 VIAL SQ SCH ×4 (06:06→23:15)
[2019-08-09] MEDS: LEVOTHYROXINE PO SCH (06:06)
[2019-08-09] MEDS: oxyCODONE HCL 5 MG TABLET PO PRN (06:07)
[2019-08-09 07:45] LABS: BASO % 1.9 % (0-2.0); HEMOGLOBIN 8.7 GM/dL (10.7-15.3); MCHC 33.3 g/dl (32.0-36.0); MEAN CELL VOLUME 87.3 fl (80-96); MEAN PLT VOLUME 7.5 fl (7.5-11.1); MONO % 11.9 % (3.8-10.2); NEUT % 50.2 % (42.8-82.8); PLATELET COUNT 232 K/MM3 (134-434); RBC 2.98 M/mm3 (3.60-5.2); RDW 15.6 % (11.6-15.6); WHITE BLOOD COUNT 3.3 K/mm3 (4.0-10.0)
[2019-08-09 08:30] LABS: ALBUMIN 2.1 g/dl (3.4-5.0); BILIRUBIN,TOTAL 0.7 mg/dL (0.2-1); BLOOD UREA NITROGEN 37.7 mg/dL (7-18); CALCIUM 8.7 mg/dL (8.5-10.1); CREATININE 3.2 mg/dL (0.55-1.3); TOT PROT 5.6 g/dl (6.4-8.2)
[2019-08-09] MEDS ORDERED: PT OWN MED DRAWER 7, Y5N ONE (10:03)
[2019-08-09] MEDS: FUROSEMIDE 40 MG/4 ML INJECTABLE VIAL IVPUSH SCH (10:16)
[2019-08-09] MEDS: CALCIUM (OYSTER SHELL) 500 MG TABLET (FP) PO SCH ×2 (10:17→23:15)
[2019-08-09] MEDS: metoPROLOL SUCCINATE 25 MG TAB.SR.24H (FP) PO SCH (10:17)
[2019-08-09] MEDS: HEPARIN NA (PORCINE) 5,000 UNITS/ML 1ML VIAL SQ SCH ×2 (10:17→23:13)
[2019-08-09] MEDS: POLYETHYLENE GLYCOL 3350 119 GM BTL PO SCH ×2 (10:30→23:15)
[2019-08-09] MEDS: TRIAMCINOLONE ACET 0.1% CREAM 15 GM TUBE TP SCH ×2 (10:32→23:18)
--- NOTE | 2019-08-09 11:14 | PN ---
Progress Note, Physician History of Present Illness: stable no new issues - Current Medication List Current Medications: Active Medications Acetaminophen (Tylenol -) 650 mg PO Q6H PRN PRN Reason: Fever Or Pain Calcium Carbonate (Os-Mauri 500mg -) 500 mg PO BID [facility] Last Admin: 08/09/19 10:17 Dose: 500 mg Cyclobenzaprine HCl (Cyclobenzaprine Hcl) 5 mg PO BID PRN PRN Reason: MUSCLE SPASMS Darbepoetin Nikolas (Aranesp -) 25 mcg SQ Q7D@1000 [facility] Last Admin: 08/07/19 18:57 Dose: 25 mcg Diphenhydramine HCl (Benadryl -) 25 mg PO Q6H PRN PRN Reason: FOR ITCHING Docusate Sodium (Colace -) 300 mg PO HS [facility] Last Admin: 08/08/19 21:40 Dose: Not Given Fentanyl (Duragesic 25mcg Patch -) 1 patch TD Q72H [facility] Stop: 08/11/19 12:20 Last Admin: 08/07/19 18:57 Dose: 1 patch Furosemide (Lasix Injection -) 40 mg IVPUSH DAILY [facility] Last Admin: 08/09/19 10:16 Dose: 40 mg Guaifenesin (Robitussin Dm -) 10 ml PO Q4H PRN PRN Reason: COUGH Heparin Sodium (Porcine) (Heparin -) 5,000 unit SQ BID [facility] Last Admin: 08/09/19 10:17 Dose: 5,000 unit Clindamycin Phosphate (Cleocin 600 Mg Premix Ivpb -) 600 mg in 50 mls @ 100 mls /hr IVPB Q8H-IV [facility]; Protocol Last Admin: 08/09/19 10:16 Dose: 100 mls/hr Insulin Aspart (Novolog Vial Sliding Scale -) 1 vial SQ ACHS [facility]; Protocol Last Admin: 08/09/19 06:06 Dose: 2 units Levothyroxine Sodium 50 mcg/ (Levothyroxine Sodium 12.5 mcg) 62.5 mcg PO DAILY@ 0700 [facility] Last Admin: 08/09/19 06:06 Dose: 62.5 mcg Metoprolol Succinate (Toprol Xl -) 25 mg PO DAILY [facility] Last Admin: 08/09/19 10:17 Dose: 25 mg Miscellaneous (Duragesic Patch Waste) 1 each MC PRN PRN PRN Reason: PAIN Oxycodone HCl (Roxicodone -) 5 mg PO Q6H PRN PRN Reason: PAIN LEVEL 6-10 Last Admin: 08/09/19 06:07 Dose: 5 mg Polyethylene Glycol (Miralax (For Daily Use) -) 17 gm PO BID [facility] Last Admin: 08/09/19 10:30 Dose: Not Given Senna (Senna -) 2 tab PO HS [facility] Last Admin: 08/08/19 21:40 Dose: Not Given Triamcinolone Acetonide (Aristocort 0.1% Cream -) 1 applic TP BID [facility] Last Admin: 08/08/19 22:07 Dose: 1 applic - Objective Vital Signs: Vital Signs Temperature 98.4 F 08/09/19 10:00 Pulse Rate 72 08/09/19 10:00 Respiratory Rate 18 08/09/19 10:00 Blood Pressure 119/64 08/09/19 10:00 O2 Sat by Pulse Oximetry (%) 100 08/08/19 21:00 Constitutional: Yes: No Distress, Calm Cardiovascular: Yes: S1, S2 Respiratory: Yes: Regular, CTA Bilaterally Gastrointestinal: Yes: Normal Bowel Sounds, Soft Musculoskeletal: Yes: WNL Extremities: Yes: Other Neurological: Yes: Alert, Oriented Psychiatric: Yes: Alert, Oriented Labs: CBC, BMP 08/09/19 07:15 08/09/19 07:15 INR, PTT INR Cancelled 08/02/19 20:30 Assessment/Plan Problem List - Problems (1) Acute exacerbation of CHF (congestive heart failure) Code(s): I50.9 - HEART FAILURE, UNSPECIFIED Qualifiers: Heart failure type: unspecified Qualified Code(s): I50.9 - Heart failure, unspecified (2) Anasarca Code(s): R60.1 - GENERALIZED EDEMA (3) Pleural effusion Code(s): J90 - PLEURAL EFFUSION, NOT ELSEWHERE CLASSIFIED (4) Acute renal failure Code(s): N17.9 - ACUTE KIDNEY FAILURE, UNSPECIFIED (5) Acute renal failure superimposed on chronic kidney disease Code(s): N17.9 - ACUTE KIDNEY FAILURE, UNSPECIFIED; N18.9 - CHRONIC KIDNEY DISEASE, UNSPECIFIED (6) Anemia Code(s): D64.9 - ANEMIA, UNSPECIFIED cellulitis of the leg wound on the leg plan will stop the abx and monitor wound care
--- NOTE | 2019-08-09 12:44 | PN ---
Progress Note (short form) - Note Progress Note: pt seen/ examined chart reviewed awake/ comfortable reports pain better i/d f/u noted and discussed with Dr. Hilario today Abx d/rody today Vital Signs Temp 98.4 F 08/09/19 10:00 Pulse 72 08/09/19 10:00 Resp 18 08/09/19 10:00 BP 119/64 08/09/19 10:00 Pulse Ox 100 08/08/19 21:00 Intake & Output 08/08/19 08/09/19 08/09/19 23:59 11:59 23:59 Intake Total 500 100 100 Balance 500 100 100 Intake: IVPB 200 100 Oral 300 100 Other: Voiding Method Incontinent Incontinent # Unmeasured Voids Void 1 2 Bowel Movement No No # Bowel Movements 1 Active Medications Acetaminophen (Tylenol -) 650 mg PO Q6H PRN PRN Reason: Fever Or Pain Calcium Carbonate (Os-Mauri 500mg -) [address] [facility] Last Admin: 08/09/19 10:17 Dose: 500 mg Cyclobenzaprine HCl (Cyclobenzaprine Hcl) 5 mg PO BID PRN PRN Reason: MUSCLE SPASMS Darbepoetin Nikolas (Aranesp -) 25 mcg SQ Q7D@1000 [facility] Last Admin: 08/07/19 18:57 Dose: 25 mcg Diphenhydramine HCl (Benadryl -) 25 mg PO Q6H PRN PRN Reason: FOR ITCHING Docusate Sodium (Colace -) [address] [facility] Last Admin: 08/08/19 21:40 Dose: Not Given Fentanyl (Duragesic 25mcg Patch -) [address] [facility] Stop: 08/11/19 12:20 Last Admin: 08/07/19 18:57 Dose: 1 patch Furosemide (Lasix Injection -) [address] [facility] Last Admin: 08/09/19 10:16 Dose: 40 mg Guaifenesin (Robitussin Dm -) 10 ml PO Q4H PRN PRN Reason: COUGH Heparin Sodium (Porcine) (Heparin -) 5,[address] [facility] Last Admin: 08/09/19 10:17 Dose: 5,000 unit Clindamycin Phosphate (Cleocin 600 Mg Premix Ivpb -) 600 mg in 50 mls @ 100 mls /hr IVPB Q8H-IV [facility]; Protocol Last Admin: 08/09/19 10:16 Dose: 100 mls/hr Insulin Aspart (Novolog Vial Sliding Scale -) [address] [facility]; Protocol Last Admin: 08/09/19 12:26 Dose: 2 units Levothyroxine Sodium 50 mcg/ (Levothyroxine Sodium 12.5 mcg) 62.5 mcg PO DAILY@ 0700 [facility] Last Admin: 08/09/19 06:06 Dose: 62.5 mcg Metoprolol Succinate (Toprol Xl -) [address] [facility] Last Admin: 08/09/19 10:17 Dose: 25 mg Miscellaneous (Duragesic Patch Waste) 1 each MC PRN PRN PRN Reason: PAIN Oxycodone HCl (Roxicodone -) 5 mg PO Q6H PRN PRN Reason: PAIN LEVEL 6-10 Last Admin: 08/09/19 06:07 Dose: 5 mg Polyethylene Glycol (Miralax (For Daily Use) -) [address] [facility] Last Admin: 08/09/19 10:30 Dose: Not Given Senna (Senna -) [address] [facility] Last Admin: 08/08/19 21:40 Dose: Not Given Triamcinolone Acetonide (Aristocort 0.1% Cream -) [address] [facility] Last Admin: 08/08/19 22:07 Dose: 1 applic CBC, BMP 08/09/19 07:15 08/09/19 07:15 Physical Awake. Chronic ill appearance S1 S2 irregular lungs decreased abd-- anasarca+ multiple psoriatic lesions on abd and legs. soft tender lower back leg wound right -- dressing in place wound right leg PLAN CHF systolic decompensation-- -- cardiology eval noted -- previous echo from April noted -- EF 35% -- iv lasix -- monitor output -- renal function-- monitor-- renal following Cellulitis -- on iv antibiotics-- d/rody today -- -- wound care renal failure -- acute on chronic -- monitor while on iv lasix -- renal following Back pain -- h/o breast CA -- c/o severe pain -- started Fentanyl patch --MRI LS spine --Acute # T12- L1 -- PT eval Monitor BGm -- Pt has brittle Diabetes Multiple Co morbidities oob - chair Physical Therapy Monitor Labs Pt also requesting to Go to [place] for rehab- Will inform behavioral health case manager Will follow Problem List - Problems (1) Back pain Code(s): M54.9 - DORSALGIA, UNSPECIFIED (2) Abdominal pain Code(s): R10.9 - UNSPECIFIED ABDOMINAL PAIN (3) Acute exacerbation of CHF (congestive heart failure) Code(s): I50.9 - HEART FAILURE, UNSPECIFIED Qualifiers: Heart failure type: unspecified Qualified Code(s): I50.9 - Heart failure, unspecified (4) Anasarca Code(s): R60.1 - GENERALIZED EDEMA (5) Pleural effusion Code(s): J90 - PLEURAL EFFUSION, NOT ELSEWHERE CLASSIFIED (6) Acute renal failure superimposed on chronic kidney disease Code(s): N17.9 - ACUTE KIDNEY FAILURE, UNSPECIFIED; N18.9 - CHRONIC KIDNEY DISEASE, UNSPECIFIED (7) Anemia Code(s): D64.9 - ANEMIA, UNSPECIFIED (8) Anemia in chronic kidney disease Code(s): N18.9 - CHRONIC KIDNEY DISEASE, UNSPECIFIED; D63.1 - ANEMIA IN CHRONIC KIDNEY DISEASE (9) Breast cancer Code(s): C50.919 - MALIGNANT NEOPLASM OF UNSP SITE OF UNSPECIFIED FEMALE BREAST (10) Cellulitis Code(s): L03.90 - CELLULITIS, UNSPECIFIED Qualifiers: Site of cellulitis: unspecified site Qualified Code(s): L03.90 - Cellulitis , unspecified (11) Diabetes type 1, uncontrolled Code(s): E10.65 - TYPE 1 DIABETES MELLITUS WITH HYPERGLYCEMIA (12) Diarrhea Code(s): R19.7 - DIARRHEA, UNSPECIFIED (13) Scleroderma Code(s): M34.9 - SYSTEMIC SCLEROSIS, UNSPECIFIED Problem List - Problems (1) Back pain Code(s): M54.9 - DORSALGIA, UNSPECIFIED (2) Abdominal pain Code(s): R10.9 - UNSPECIFIED ABDOMINAL PAIN (3) Acute exacerbation of CHF (congestive heart failure) Code(s): I50.9 - HEART FAILURE, UNSPECIFIED Qualifiers: Heart failure type: unspecified Qualified Code(s): I50.9 - Heart failure, unspecified (4) Anasarca Code(s): R60.1 - GENERALIZED EDEMA (5) Pleural effusion Code(s): J90 - PLEURAL EFFUSION, NOT ELSEWHERE CLASSIFIED (6) Acute renal failure superimposed on chronic kidney disease Code(s): N17.9 - ACUTE KIDNEY FAILURE, UNSPECIFIED; N18.9 - CHRONIC KIDNEY DISEASE, UNSPECIFIED (7) Anemia Code(s): D64.9 - ANEMIA, UNSPECIFIED (8) Anemia in chronic kidney disease Code(s): N18.9 - CHRONIC KIDNEY DISEASE, UNSPECIFIED; D63.1 - ANEMIA IN CHRONIC KIDNEY DISEASE (9) Breast cancer Code(s): C50.919 - MALIGNANT NEOPLASM OF UNSP SITE OF UNSPECIFIED FEMALE BREAST (10) Cellulitis Code(s): L03.90 - CELLULITIS, UNSPECIFIED Qualifiers: Site of cellulitis: unspecified site Qualified Code(s): L03.90 - Cellulitis , unspecified (11) Diabetes type 1, uncontrolled Code(s): E10.65 - TYPE 1 DIABETES MELLITUS WITH HYPERGLYCEMIA (12) Diarrhea Code(s): R19.7 - DIARRHEA, UNSPECIFIED (13) Scleroderma Code(s): M34.9 - SYSTEMIC SCLEROSIS, UNSPECIFIED
[2019-08-09] MEDS ORDERED: ONDANSETRON 4 MG/2 ML VIAL IVPB PRN (13:12)
--- NOTE | 2019-08-09 15:23 | PN ---
Progress Note, Physician Chief Complaint: Abdominal pain History of Present Illness: This is a 53 year old female with a history of DM, HTN, HLD, CKD, scleroderma, nephrolithasis, recurrent UTI's, Chronic systolic CHF (30-35% EF), and breast Ca S/P bilateral mastectomy, falls, anasarca who was sent to the ER for abdominal pain, also found with sob and pleural effusions on CXR. Echo 04/12/19: EF 30-35%, pleural effusion and pleural mass. RVSP 45mmHg. Nuclear Stress 04/22/19 Inferolateral infarct, no ischemia EF 37%. Albumin 2.1 - Current Medication List Current Medications: Active Medications Acetaminophen (Tylenol -) 650 mg PO Q6H PRN PRN Reason: Fever Or Pain Calcium Carbonate (Os-Mauri 500mg -) 500 mg PO BID [facility] Last Admin: 08/09/19 10:17 Dose: 500 mg Cyclobenzaprine HCl (Cyclobenzaprine Hcl) 5 mg PO BID PRN PRN Reason: MUSCLE SPASMS Darbepoetin Nikolas (Aranesp -) 25 mcg SQ Q7D@1000 [facility] Last Admin: 08/07/19 18:57 Dose: 25 mcg Diphenhydramine HCl (Benadryl -) 25 mg PO Q6H PRN PRN Reason: FOR ITCHING Docusate Sodium (Colace -) 300 mg PO HS [facility] Last Admin: 08/08/19 21:40 Dose: Not Given Fentanyl (Duragesic 25mcg Patch -) 1 patch TD Q72H [facility] Stop: 08/11/19 12:20 Last Admin: 08/07/19 18:57 Dose: 1 patch Furosemide (Lasix Injection -) 40 mg IVPUSH DAILY [facility] Last Admin: 08/09/19 10:16 Dose: 40 mg Guaifenesin (Robitussin Dm -) 10 ml PO Q4H PRN PRN Reason: COUGH Heparin Sodium (Porcine) (Heparin -) 5,000 unit SQ BID [facility] Last Admin: 08/09/19 10:17 Dose: 5,000 unit Clindamycin Phosphate (Cleocin 600 Mg Premix Ivpb -) 600 mg in 50 mls @ 100 mls /hr IVPB Q8H-IV [facility]; Protocol Last Admin: 08/09/19 10:16 Dose: 100 mls/hr Insulin Aspart (Novolog Vial Sliding Scale -) 1 vial SQ ACHS [facility]; Protocol Last Admin: 08/09/19 12:26 Dose: 2 units Levothyroxine Sodium 50 mcg/ (Levothyroxine Sodium 12.5 mcg) 62.5 mcg PO DAILY@ 0700 [facility] Last Admin: 08/09/19 06:06 Dose: 62.5 mcg Metoprolol Succinate (Toprol Xl -) 25 mg PO DAILY [facility] Last Admin: 08/09/19 10:17 Dose: 25 mg Miscellaneous (Duragesic Patch Waste) 1 each MC PRN PRN PRN Reason: PAIN Ondansetron HCl (Zofran Injection) 4 mg IVPB Q6H PRN PRN Reason: NAUSEA Last Admin: 08/09/19 14:23 Dose: 4 mg Oxycodone HCl (Roxicodone -) 5 mg PO Q6H PRN PRN Reason: PAIN LEVEL 6-10 Last Admin: 08/09/19 06:07 Dose: 5 mg Polyethylene Glycol (Miralax (For Daily Use) -) 17 gm PO BID [facility] Last Admin: 08/09/19 10:30 Dose: Not Given Senna (Senna -) 2 tab PO HS [facility] Last Admin: 08/08/19 21:40 Dose: Not Given Triamcinolone Acetonide (Aristocort 0.1% Cream -) 1 applic TP BID [facility] Last Admin: 08/08/19 22:07 Dose: 1 applic - Objective Vital Signs: Vital Signs Temperature 98.4 F 08/09/19 10:00 Pulse Rate 72 08/09/19 10:00 Respiratory Rate 18 08/09/19 10:00 Blood Pressure 119/64 08/09/19 10:00 O2 Sat by Pulse Oximetry (%) 98 08/09/19 09:00 Constitutional: Yes: Moderate Distress HENT: Yes: WNL Neck: Yes: WNL Cardiovascular: Yes: Regular Rate and Rhythm, S1, S2 Respiratory: Yes: CTA Bilaterally Gastrointestinal: Yes: Tenderness (Diffuse) Extremities: Yes: WNL Neurological: Yes: Alert, Oriented Labs: CBC, BMP 08/09/19 07:15 08/09/19 07:15 INR, PTT INR Cancelled 08/02/19 20:30 Assessment/Plan This is a 53 year old female with a history of DM, HTN, HLD, CKD, scleroderma, nephrolithasis, recurrent UTI's, Chronic systolic CHF (30-35% EF), and breast Ca S/P bilateral mastectomy, falls, anasarca who was sent to the ER for abdominal pain, also found with sob and pleural effusions on CXR. Echo 04/12/19: EF 30-35%, pleural effusion and pleural mass. RVSP 45mmHg. Nuclear Stress 04/22/19 Inferolateral infarct, no ischemia EF 37%. Impression: Acute on chronic biventricular CHF Anasarca 2/2 3rd spacing do to hypoalbuminemia Continued on Lasix 40 mg IV daily Following I's/O's/Wt's/Lytes
--- NOTE | 2019-08-09 15:28 | PN ---
Progress Note (short form) - Note Progress Note: Renal follow up for GENESIS on CKD Seen and examined at the bedside Denies any shortness of breath at rest. Denies chest pain, abdominal pain, nausea, vomiting Reports some difficulty with swallowing Making urine without dysuria. Has not been ambulatory over the weekend. Vital Signs Temperature 98.4 F 08/09/19 10:00 Pulse Rate 72 08/09/19 10:00 Respiratory Rate 18 08/09/19 10:00 Blood Pressure 119/64 08/09/19 10:00 O2 Sat by Pulse Oximetry (%) 98 08/09/19 09:00 Intake & Output 08/06/19 08/07/19 08/08/19 08/09/19 23:59 23:59 23:59 23:59 Intake Total 1400 1060 600 200 Balance 1400 1060 600 200 NAD on NC O2 RRR Dec BS mild abd distension + edema in LE CBC, BMP 08/09/19 07:15 08/09/19 07:15 Current Medications Acetaminophen (Tylenol -) 650 mg PO Q6H PRN PRN Reason: Fever Or Pain Calcium Carbonate (Os-Mauri 500mg -) 500 mg PO BID [facility] Last Admin: 08/09/19 10:17 Dose: 500 mg Cyclobenzaprine HCl (Cyclobenzaprine Hcl) 5 mg PO BID PRN PRN Reason: MUSCLE SPASMS Darbepoetin Nikolas (Aranesp -) 25 mcg SQ Q7D@1000 [facility] Last Admin: 08/07/19 18:57 Dose: 25 mcg Diphenhydramine HCl (Benadryl -) 25 mg PO Q6H PRN PRN Reason: FOR ITCHING Docusate Sodium (Colace -) 300 mg PO HS [facility] Last Admin: 08/08/19 21:40 Dose: Not Given Fentanyl (Duragesic 25mcg Patch -) 1 patch TD Q72H [facility] Stop: 08/11/19 12:20 Last Admin: 08/07/19 18:57 Dose: 1 patch Furosemide (Lasix Injection -) 40 mg IVPUSH DAILY [facility] Last Admin: 08/09/19 10:16 Dose: 40 mg Guaifenesin (Robitussin Dm -) 10 ml PO Q4H PRN PRN Reason: COUGH Heparin Sodium (Porcine) (Heparin -) 5,000 unit SQ BID [facility] Last Admin: 08/09/19 10:17 Dose: 5,000 unit Clindamycin Phosphate (Cleocin 600 Mg Premix Ivpb -) 600 mg in 50 mls @ 100 mls /hr IVPB Q8H-IV [facility]; Protocol Last Admin: 08/09/19 10:16 Dose: 100 mls/hr Insulin Aspart (Novolog Vial Sliding Scale -) 1 vial SQ ACHS [facility]; Protocol Last Admin: 08/09/19 12:26 Dose: 2 units Levothyroxine Sodium 50 mcg/ (Levothyroxine Sodium 12.5 mcg) 62.5 mcg PO DAILY@ 0700 [facility] Last Admin: 08/09/19 06:06 Dose: 62.5 mcg Metoprolol Succinate (Toprol Xl -) 25 mg PO DAILY [facility] Last Admin: 08/09/19 10:17 Dose: 25 mg Miscellaneous (Duragesic Patch Waste) 1 each MC PRN PRN PRN Reason: PAIN Ondansetron HCl (Zofran Injection) 4 mg IVPB Q6H PRN PRN Reason: NAUSEA Last Admin: 08/09/19 14:23 Dose: 4 mg Oxycodone HCl (Roxicodone -) 5 mg PO Q6H PRN PRN Reason: PAIN LEVEL 6-10 Last Admin: 08/09/19 06:07 Dose: 5 mg Polyethylene Glycol (Miralax (For Daily Use) -) 17 gm PO BID [facility] Last Admin: 08/09/19 10:30 Dose: Not Given Senna (Senna -) 2 tab PO HS [facility] Last Admin: 08/08/19 21:40 Dose: Not Given Triamcinolone Acetonide (Aristocort 0.1% Cream -) 1 applic TP BID [facility] Last Admin: 08/08/19 22:07 Dose: 1 applic 53 year old woman with history of CKD (baseline Cr 1.4-1.5), CHF, ETOH abuse, DM , Hypertension, hyperlipidemia, breast cancer s/p bilateral mastecotm, scleroderma and psoriasis presented from home with erythema in LE and noted to have Cr of 2.3. 1. Acute kidney injury in setting of fluid overload/CHF 2. CKD stage 3 3. Hx of CHF 4. Edema of LE 5. cellulitis of LE renal function continues to gradually worsen despite decreasing frequency of diuretics to once a day. Patient continues to demonstrate fluid overload as she has sacral edema. if renal function continues to gradually worsen we will change diuretics to oral torsemide. No acute indication for dialysis. serologic workup showed negative ERICK and negative ASO. ANCA's are still pending. Dose all meds for Cr Cl < 20 avoid IV contrast, NSAIDs or other nephrotoxins Trend renal function and electrolytes daily Thank you Efraín Barillas DO
[2019-08-09] MEDS: SENNOSIDES 8.6MG TABLET (FP) PO SCH (23:15)
[2019-08-09] MEDS: DOCUSATE SODIUM 100 MG CAPSULE (FP) PO SCH (23:15)
[2019-08-10] MEDS ORDERED: LEVOTHYROXINE NA 50 MCG TABLET (FP) ONE (06:21)
[2019-08-10] MEDS ORDERED: LEVOTHYROXINE NA 25 MCG TABLET (FP) ONE (06:21)
[2019-08-10] MEDS: INSULIN SLIDING SCALE (NOVOLOG) 1 VIAL SQ SCH ×4 (06:35→23:40)
[2019-08-10] MEDS: LEVOTHYROXINE PO SCH (06:36)
[2019-08-10 08:19] LABS: BASO % 1.4 % (0-2.0); EOS % 9.1 % (0-4.5); HEMATOCRIT 25.6 % (32.4-45.2); HEMOGLOBIN 8.5 GM/dL (10.7-15.3); LYMPH % 17.5 % (8-40); MCH 28.8 pg (25.7-33.7); MCHC 33.3 g/dl (32.0-36.0); MEAN CELL VOLUME 86.6 fl (80-96); MEAN PLT VOLUME 7.4 fl (7.5-11.1); MONO % 9.3 % (3.8-10.2); NEUT % 62.7 % (42.8-82.8); PLATELET COUNT 249 K/MM3 (134-434); RBC 2.95 M/mm3 (3.60-5.2); RDW 15.3 % (11.6-15.6); WHITE BLOOD COUNT 4.3 K/mm3 (4.0-10.0)
[2019-08-10 08:53] LABS: CALCIUM 8.8 mg/dL (8.5-10.1); CREATININE 3.2 mg/dL (0.55-1.3); MAGNESIUM 1.9 mg/dL (1.8-2.4); PHOSPHOROUS 5.7 mg/dL (2.5-4.9); POTASSIUM 4.8 mmol/L (3.5-5.1)
[2019-08-10] MEDS: CALCIUM (OYSTER SHELL) 500 MG TABLET (FP) PO SCH ×2 (10:18→23:41)
[2019-08-10] MEDS: metoPROLOL SUCCINATE 25 MG TAB.SR.24H (FP) PO SCH (10:19)
[2019-08-10] MEDS: TRIAMCINOLONE ACET 0.1% CREAM 15 GM TUBE TP SCH ×2 (10:29→23:43)
[2019-08-10] MEDS: POLYETHYLENE GLYCOL 3350 119 GM BTL PO SCH ×2 (10:29→23:40)
[2019-08-10] MEDS: FUROSEMIDE 40 MG/4 ML INJECTABLE VIAL IVPUSH SCH (11:14)
--- NOTE | 2019-08-10 12:12 | PN ---
Progress Note, Physician History of Present Illness: stable no new issues - Current Medication List Current Medications: Active Medications Acetaminophen (Tylenol -) 650 mg PO Q6H PRN PRN Reason: Fever Or Pain Calcium Carbonate (Os-Mauri 500mg -) 500 mg PO BID [facility] Last Admin: 08/10/19 10:18 Dose: 500 mg Cyclobenzaprine HCl (Cyclobenzaprine Hcl) 5 mg PO BID PRN PRN Reason: MUSCLE SPASMS Darbepoetin Nikolas (Aranesp -) 25 mcg SQ Q7D@1000 [facility] Last Admin: 08/07/19 18:57 Dose: 25 mcg Diphenhydramine HCl (Benadryl -) 25 mg PO Q6H PRN PRN Reason: FOR ITCHING Docusate Sodium (Colace -) 300 mg PO HS [facility] Last Admin: 08/09/19 23:15 Dose: Not Given Fentanyl (Duragesic 25mcg Patch -) 1 patch TD Q72H [facility] Stop: 08/11/19 12:20 Last Admin: 08/07/19 18:57 Dose: 1 patch Furosemide (Lasix Injection -) 40 mg IVPUSH DAILY [facility] Last Admin: 08/10/19 11:14 Dose: Not Given Guaifenesin (Robitussin Dm -) 10 ml PO Q4H PRN PRN Reason: COUGH Insulin Aspart (Novolog Vial Sliding Scale -) 1 vial SQ ACHS [facility]; Protocol Last Admin: 08/10/19 06:35 Dose: Not Given Levothyroxine Sodium 50 mcg/ (Levothyroxine Sodium 12.5 mcg) 62.5 mcg PO DAILY@ 0700 [facility] Last Admin: 08/10/19 06:36 Dose: 62.5 mcg Metoprolol Succinate (Toprol Xl -) 25 mg PO DAILY [facility] Last Admin: 08/10/19 10:19 Dose: 25 mg Miscellaneous (Duragesic Patch Waste) 1 each MC PRN PRN PRN Reason: PAIN Ondansetron HCl (Zofran Injection) 4 mg IVPB Q6H PRN PRN Reason: NAUSEA Last Admin: 08/09/19 14:23 Dose: 4 mg Oxycodone HCl (Roxicodone -) 5 mg PO Q6H PRN PRN Reason: PAIN LEVEL 6-10 Last Admin: 08/09/19 06:07 Dose: 5 mg Polyethylene Glycol (Miralax (For Daily Use) -) 17 gm PO BID [facility] Last Admin: 08/10/19 10:29 Dose: Not Given Senna (Senna -) 2 tab PO HS [facility] Last Admin: 08/09/19 23:15 Dose: Not Given Triamcinolone Acetonide (Aristocort 0.1% Cream -) 1 applic TP BID [facility] Last Admin: 08/10/19 10:29 Dose: 1 applic - Objective Vital Signs: Vital Signs Temperature 98.1 F 08/10/19 06:00 Pulse Rate 73 08/10/19 06:00 Respiratory Rate 18 08/10/19 06:00 Blood Pressure 105/54 L 08/10/19 06:00 O2 Sat by Pulse Oximetry (%) 100 08/09/19 21:00 Constitutional: Yes: Calm, Mild Distress Cardiovascular: Yes: S1, S2 Respiratory: Yes: Regular, CTA Bilaterally Gastrointestinal: Yes: Normal Bowel Sounds, Soft Musculoskeletal: Yes: WNL Extremities: Yes: Other Wound/Incision: Yes: Dressing Dry and Intact Neurological: Yes: Alert, Oriented Psychiatric: Yes: Alert, Oriented Labs: CBC, BMP 08/10/19 07:30 08/10/19 07:30 INR, PTT INR Cancelled 08/02/19 20:30 Assessment/Plan Problem List - Problems (1) Acute exacerbation of CHF (congestive heart failure) Code(s): I50.9 - HEART FAILURE, UNSPECIFIED Qualifiers: Heart failure type: unspecified Qualified Code(s): I50.9 - Heart failure, unspecified (2) Anasarca Code(s): R60.1 - GENERALIZED EDEMA (3) Pleural effusion Code(s): J90 - PLEURAL EFFUSION, NOT ELSEWHERE CLASSIFIED (4) Acute renal failure Code(s): N17.9 - ACUTE KIDNEY FAILURE, UNSPECIFIED (5) Acute renal failure superimposed on chronic kidney disease Code(s): N17.9 - ACUTE KIDNEY FAILURE, UNSPECIFIED; N18.9 - CHRONIC KIDNEY DISEASE, UNSPECIFIED (6) Anemia Code(s): D64.9 - ANEMIA, UNSPECIFIED cellulitis of the leg wound on the leg plan continue current mgmt rest as per the team
--- NOTE | 2019-08-10 12:31 | PN ---
Progress Note, Physician History of Present Illness: seen and examined today in nad. states she is feeling better. no new complaints. - Current Medication List Current Medications: Active Medications Acetaminophen (Tylenol -) 650 mg PO Q6H PRN PRN Reason: Fever Or Pain Calcium Carbonate (Os-Mauri 500mg -) 500 mg PO BID [facility] Last Admin: 08/10/19 10:18 Dose: 500 mg Cyclobenzaprine HCl (Cyclobenzaprine Hcl) 5 mg PO BID PRN PRN Reason: MUSCLE SPASMS Darbepoetin Nikolas (Aranesp -) 25 mcg SQ Q7D@1000 [facility] Last Admin: 08/07/19 18:57 Dose: 25 mcg Diphenhydramine HCl (Benadryl -) 25 mg PO Q6H PRN PRN Reason: FOR ITCHING Docusate Sodium (Colace -) 300 mg PO HS [facility] Last Admin: 08/09/19 23:15 Dose: Not Given Fentanyl (Duragesic 25mcg Patch -) 1 patch TD Q72H [facility] Stop: 08/11/19 12:20 Last Admin: 08/07/19 18:57 Dose: 1 patch Furosemide (Lasix Injection -) 40 mg IVPUSH DAILY [facility] Last Admin: 08/10/19 11:14 Dose: Not Given Guaifenesin (Robitussin Dm -) 10 ml PO Q4H PRN PRN Reason: COUGH Insulin Aspart (Novolog Vial Sliding Scale -) 1 vial SQ ACHS [facility]; Protocol Last Admin: 08/10/19 06:35 Dose: Not Given Levothyroxine Sodium 50 mcg/ (Levothyroxine Sodium 12.5 mcg) 62.5 mcg PO DAILY@ 0700 [facility] Last Admin: 08/10/19 06:36 Dose: 62.5 mcg Metoprolol Succinate (Toprol Xl -) 25 mg PO DAILY [facility] Last Admin: 08/10/19 10:19 Dose: 25 mg Miscellaneous (Duragesic Patch Waste) 1 each MC PRN PRN PRN Reason: PAIN Ondansetron HCl (Zofran Injection) 4 mg IVPB Q6H PRN PRN Reason: NAUSEA Last Admin: 08/09/19 14:23 Dose: 4 mg Oxycodone HCl (Roxicodone -) 5 mg PO Q6H PRN PRN Reason: PAIN LEVEL 6-10 Last Admin: 08/09/19 06:07 Dose: 5 mg Polyethylene Glycol (Miralax (For Daily Use) -) 17 gm PO BID [facility] Last Admin: 08/10/19 10:29 Dose: Not Given Senna (Senna -) 2 tab PO HS [facility] Last Admin: 08/09/19 23:15 Dose: Not Given Triamcinolone Acetonide (Aristocort 0.1% Cream -) 1 applic TP BID [facility] Last Admin: 08/10/19 10:29 Dose: 1 applic - Objective Vital Signs: Vital Signs Temperature 98.1 F 08/10/19 06:00 Pulse Rate 73 08/10/19 06:00 Respiratory Rate 18 08/10/19 06:00 Blood Pressure 105/54 L 08/10/19 06:00 O2 Sat by Pulse Oximetry (%) 100 08/09/19 21:00 Constitutional: Yes: No Distress, Calm Eyes: Yes: Conjunctiva Clear, EOM Intact HENT: Yes: Atraumatic, Normocephalic Neck: Yes: Supple, Trachea Midline Cardiovascular: Yes: Regular Rate and Rhythm, S1, S2. No: Bradycardia, Tachycardia, Pulse Irregular, Bruit, JVD, Gallop, Murmur, Rub, S3, S4, Varicosities Respiratory: Yes: Regular, Diminished. No: Rales, Rhonchi, Wheezes Gastrointestinal: Yes: Normal Bowel Sounds, Soft. No: Distention, Tenderness Extremities: Yes: WNL Edema: Yes Edema: LLE: Trace, RLE: Trace Peripheral Pulses WNL: Yes Peripheral Pulses: Left Doralis Pedis: 2+, Right Dorsalis Pedis: 2+ Neurological: Yes: Alert, Oriented Psychiatric: Yes: Alert, Oriented Labs: CBC, BMP 08/10/19 07:30 08/10/19 07:30 INR, PTT INR Cancelled 08/02/19 20:30 - ....Imaging Chest X-ray: Report Reviewed, Image Reviewed EKG: Report Reviewed, Image Reviewed Other: Report Reviewed, Image Reviewed Assessment/Plan This is a 53 year old female with a history of DM, HTN, HLD, CKD, scleroderma, nephrolithasis, recurrent UTI's, Chronic systolic CHF (30-35% EF), and breast Ca S/P bilateral mastectomy, falls, anasarca who was sent to the ER for abdominal pain, also found with sob and pleural effusions on CXR. Echo 04/12/19: EF 30-35%, pleural effusion and pleural mass. RVSP 45mmHg. Nuclear Stress 04/22/19 Inferolateral infarct, no ischemia EF 37%. Impression: Acute on chronic biventricular CHF Anasarca 2/2 3rd spacing do to hypoalbuminemia Following I's/O's/Wt's/Lytes BUN/creat trended up No longer has IV access Would start Torsemide po if ok with nephrology Consider pulmonary evaluation for thoracentesis as unable to completely diurese pleural effusions
--- NOTE | 2019-08-10 13:37 | CON.PULM ---
Consult Consult Specialty:: PULMONARY Referred by:: Dr Linares Reason for Consultation:: pleural effusion - History of Present Illness Chief Complaint: swelling History of Present Illness: 53yo female with h/o HTN, DM, CKD, hyperlipidemia, scleroderma, recurrent UTIs, LV systolic dysfunction, h/o breast ca s/p bilateral mastectomies who was admitted with abdominal pain and anasarca. Hospital course significant for diuresis with improvement in her symptoms, treated for UTI and cellulitis. Pulmonary consulted for evaluation of her pleural effusions. Last CXR done 08/03 during admission. She has had pleural effusions in the past, has been tapped 3 times all studies consistent with transudate and negative cytologies. Currently states her breathing has improved and the swelling has decreased. No cough or wheezing. Denies history of asthma or COPD. She is a never smoker. - History Source History Provided By: Patient, Medical Record Limitations to Obtaining History: No Limitations - Past Medical History [employer]: Yes: Peripheral Neuropathy (walks with a walker) Cardio/Vascular: Yes: HTN, Hyperlipdemia Gastrointestinal: Yes: Constipation, Other (Colon polyp: From colonoscopy 2017) Renal/: Yes: Renal Calculi, UTI ...LMP: 04/17/10 Rheumatology: Yes: Other (Scleroderma,psoriasis) Endocrine: Yes: Diabetes Mellitus Dermatology: Yes: Psoriasis, Other (scleroderma) Additional Medical History: h/o Lt. breast cancer--2009. 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 s/p bilateral mastectomies/axillary lymphadenectomy. s/p RT to Lt. chestwall. 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 Occupation: Unemployed History of Recent Travel: No Home Medications - Allergies Allergies/Adverse Reactions: Allergies Allergy/AdvReac Type Severity Reaction Status Date / Time Sulfa (Sulfonamide Allergy Intermediate Hives Verified 08/02/19 19:29 Antibiotics) [Sulfa(Sulfonamide Antibiotics)] terbinafine HCl Allergy Intermediate Rash Verified 08/02/19 19:29 [From Lamisil] - Home Medications Home Medications: Ambulatory Orders Metoprolol Succinate [Toprol XL -] 25 mg PO DAILY 07/19/14 Acetaminophen [Tylenol .Regular Strength -] 650 mg PO Q6H PRN tablet 04/23/19 Triamcinolone 0.1% Cream [Aristocort 0.1% Cream -] 1 applic TP BID applic 04/23 Cyclobenzaprine HCl 5 mg PO BID PRN #60 tablet 06/09/19 Levothyroxine [Synthroid -] 62.5 mcg PO DAILY@0700 30 Days #30 tablet 06/09/19 Oxycodone HCl 5 mg PO BID PRN #30 tablet MDD 2 06/11/19 Pantoprazole Sodium [Protonix -] 40 mg PO DAILY tablet.ec 06/11/19 Albuterol 0.083% Nebulizer Felicitas [Ventolin 0.083% Nebulizer Soln -] 1 neb NEB Q6H PRN 08/02/19 Bismuth Tribromoph/Petrolatum [Xeroform Petrolatum Dress] 1 each TP BID Calcium Carbonate [Oyster Shell Calcium] 500 mg PO BID 08/02/19 Cyclobenzaprine HCl [Flexeril -] 5 mg PO BID PRN 08/02/19 Docusate Sodium [Colace] 300 mg PO HS 08/02/19 Ergocalciferol (Vitamin D2) [Vitamin D2] 50,000 unit PO WEEKLY 08/02/19 Furosemide [Lasix -] 40 mg PO BID 08/02/19 Guaifenesin Dm [Robitussin Dm -] 10 ml PO Q4H PRN 08/02/19 Insulin Glargine,Hum.rec.anlog [Basaglar Kwikpen U-100] 3 unit SQ Q12H 08/02/19 Insulin Lispro [Humalog] 100 unit SQ AC 08/02/19 Lidocaine [Aspercreme] 1 each TP DAILY 08/02/19 Sennosides [Senna] 17.2 mg PO HS 08/02/19 Sodium Bicarbonate - 650 mg PO AC 08/02/19 Review of Systems - Review of Systems Constitutional: reports: Weakness. denies: Chills, Fever Eyes: denies: Recent Change in Vision HENT: denies: Nasal Congestion, Throat Pain Neck: denies: Stiffness, Tenderness Cardiovascular: reports: Edema. denies: Chest Pain, Shortness of Breath Respiratory: denies: Cough, Hemoptysis, Wheezing Gastrointestinal: denies: Abdominal Pain, Nausea, Vomiting Genitourinary: denies: Dysuria, Hematuria Neurological: denies: Dizziness, Headache Endocrine: denies: Unexplained Weight Loss Physical Exam Vital Sings: Vital Signs Temperature 98.1 F 08/10/19 06:00 Pulse Rate 73 08/10/19 06:00 Respiratory Rate 18 08/10/19 06:00 Blood Pressure 105/54 L 08/10/19 06:00 O2 Sat by Pulse Oximetry (%) 100 08/09/19 21:00 Constitutional: Yes: Calm Eyes: Yes: Conjunctiva Clear, EOM Intact HENT: Yes: Atraumatic, Normocephalic Neck: Yes: Supple, Trachea Midline Cardiovascular: Yes: Regular Rate and Rhythm Respiratory: Yes: Diminished (decreased breath sounds at the bases) ...Clubbing: No Gastrointestinal: Yes: Normal Bowel Sounds, Soft. No: Tenderness Edema: Yes Labs: CBC, BMP 08/10/19 07:30 08/10/19 07:30 Imaging - Results Chest X-ray: Report Reviewed, Image Reviewed (pulmonary vascular congestion, bilateral effusions) Problem List - Problems (1) Anasarca Code(s): R60.1 - GENERALIZED EDEMA (2) Pleural effusion Code(s): J90 - PLEURAL EFFUSION, NOT ELSEWHERE CLASSIFIED Assessment/Plan Acute on Chronic Systolic Heart Failure Acute on Chronic Renal Failure Volume Overload/Anasarca improving Pleural Effusions likely from above Hyponatremia Pulmonary HTN Scleroderma HTN DM Hyperlipidemia UTI treated Cellulitis Anemia - prior diagnostic thoracentesis x 3 showing transudative fluid - repeat CXR, last one done on admission - weighed pt at bedside, weight today is 63kg, down from last recorded weight of 70kg on 08/05, would expect that the effusions have decreased - continue lasix/torsemide per renal/cardiology - monitor urine output, creatinine - would defer further thoracetesis unless large effusions remain despite diuresis or if pt symptomatic - DVT prophylaxis Thank you for this consult Johann Alcantar MD
--- NOTE | 2019-08-10 13:38 | PN ---
Progress Note (short form) - Note Progress Note: back pain better with pain meds feeling better no sob Vital Signs - 24 hr 08/09/19 08/09/19 08/09/19 15:53 18:00 21:00 Temperature 98.4 F 97.6 F Pulse Rate 74 72 Respiratory 18 18 18 Rate Blood Pressure 119/64 121/67 O2 Sat by Pulse 100 Oximetry (%) 08/09/19 08/10/19 08/10/19 22:00 02:04 06:00 Temperature 98.0 F 98.1 F 98.1 F Pulse Rate 71 71 73 Respiratory 18 18 18 Rate Blood Pressure 131/77 124/55 L 105/54 L O2 Sat by Pulse Oximetry (%) Current Medications Generic Name Dose Route Start Last Admin Trade Name Freq PRN Reason Stop Dose Admin Acetaminophen 650 mg 08/03/19 04:16 Tylenol - PO Q6H PRN Fever Or Pain Calcium Carbonate 500 mg 08/03/19 10:00 08/10/19 10:18 Os-Mauri 500mg - PO 500 mg BID [facility] Administration Cyclobenzaprine HCl 5 mg 08/03/19 04:16 Cyclobenzaprine Hcl PO BID PRN MUSCLE SPASMS Darbepoetin Nikolas 25 mcg 08/07/19 10:00 08/07/19 18:57 Aranesp - SQ 25 mcg Q7D@1000 [facility] Administration Diphenhydramine HCl 25 mg 08/08/19 10:12 Benadryl - PO Q6H PRN FOR ITCHING Docusate Sodium 300 mg 08/03/19 22:00 08/09/19 23:15 Colace - PO Not Given HS [facility] Fentanyl 1 patch 08/04/19 12:30 08/07/19 18:57 Duragesic 25mcg Patch - TD 08/11/19 12:20 1 patch Q72H [facility] Administration Guaifenesin 10 ml 08/03/19 04:16 Robitussin Dm - PO Q4H PRN COUGH Insulin Aspart 1 vial 08/03/19 07:00 08/10/19 12:25 Novolog Vial Sliding Scale - SQ 4 units ACHS [facility] Administration Protocol Levothyroxine Sodium 50 mcg/ 62.5 mcg 08/03/19 07:00 08/10/19 06:36 Levothyroxine Sodium 12.5 mcg PO 62.5 mcg DAILY@0700 [facility] Administration Metoprolol Succinate 25 mg 08/03/19 10:00 08/10/19 10:19 Toprol Xl - PO 25 mg DAILY [facility] Administration Miscellaneous 1 each 08/04/19 12:20 Duragesic Patch Waste MC PRN PRN PAIN Ondansetron HCl 4 mg 08/09/19 13:12 08/09/19 14:23 Zofran Injection IVPB 4 mg Q6H PRN Administration NAUSEA Oxycodone HCl 5 mg 08/09/19 05:07 08/09/19 06:07 Roxicodone - PO 5 mg Q6H PRN Administration PAIN LEVEL 6-10 Polyethylene Glycol 17 gm 08/04/19 12:30 08/10/19 10:29 Miralax (For Daily Use) - PO Not Given BID [facility] Senna 2 tab 08/03/19 22:00 08/09/19 23:15 Senna - PO Not Given HS [facility] Torsemide 40 mg 08/10/19 13:45 Demadex - PO DAILY [facility] Triamcinolone Acetonide 1 applic 08/03/19 10:00 08/10/19 10:29 Aristocort 0.1% Cream - TP 1 applic BID [facility] Administration Laboratory Results - last 24 hr 08/09/19 08/09/19 08/10/19 17:02 23:12 06:07 WBC RBC Hgb Hct MCV MCH MCHC RDW Plt Count MPV Absolute Neuts (auto) Neutrophils % Lymphocytes % Monocytes % Eosinophils % Basophils % Nucleated RBC % Sodium Potassium Chloride Carbon Dioxide Anion Gap BUN Creatinine Est GFR (CKD-EPI)AfAm Est GFR (CKD-EPI)NonAf POC Glucometer 217 292 192 Random Glucose Calcium Phosphorus Magnesium 08/10/19 08/10/19 08/10/19 07:30 07:30 12:23 WBC 4.3 RBC 2.95 L Hgb 8.5 L Hct 25.6 L MCV 86.6 MCH 28.8 MCHC 33.3 RDW 15.3 Plt Count 249 MPV 7.4 L Absolute Neuts (auto) 2.7 Neutrophils % 62.7 D Lymphocytes % 17.5 D Monocytes % 9.3 Eosinophils % 9.1 H Basophils % 1.4 Nucleated RBC % 0 Sodium 130 L Potassium 4.8 Chloride 89 L Carbon Dioxide 31 Anion Gap 10 BUN 35.0 H Creatinine 3.2 H Est GFR (CKD-EPI)AfAm 18.25 Est GFR (CKD-EPI)NonAf 15.75 POC Glucometer 307 Random Glucose 216 H Calcium 8.8 Phosphorus 5.7 H Magnesium 1.9 MRI- LS spine noted CT abd /pelvis repeated culture --noted S1 S2 irregular lungs decreased abd-- anasarca+erythema abd wal,, tender, multiple psoriatic lesions on abd and legs tender lower back leg wound right -- dressing in place wound right leg decreased edema= PLAN CHF systolic decompensation-- -- previous echo from April noted -- EF 35% -- no iv access --> dc lasix--> will start Torsemide PO -- monitor output Cellulitis -- on iv antibiotics -- ID eval noted -- wound care renal failure -- acute on chronic --monitor labs -- off lasix --started Toorsemide Back pain -- h/o breast CA -- c/o severe pain -- on Fentanyl patch -- PT eval repeat CT abd-- same Problem List - Problems (1) Acute exacerbation of CHF (congestive heart failure) Code(s): I50.9 - HEART FAILURE, UNSPECIFIED Qualifiers: Qualified Code(s): I50.9 - Heart failure, unspecified (2) Anasarca Code(s): R60.1 - GENERALIZED EDEMA (3) Pleural effusion Code(s): J90 - PLEURAL EFFUSION, NOT ELSEWHERE CLASSIFIED (4) Acute renal failure Code(s): N17.9 - ACUTE KIDNEY FAILURE, UNSPECIFIED (5) Acute renal failure superimposed on chronic kidney disease Code(s): N17.9 - ACUTE KIDNEY FAILURE, UNSPECIFIED; N18.9 - CHRONIC KIDNEY DISEASE, UNSPECIFIED (6) Anemia Code(s): D64.9 - ANEMIA, UNSPECIFIED
[2019-08-10] MEDS: fentaNYL 25mcg/hr PATCH.TD72 TD SCH (13:45)
[2019-08-10] MEDS ORDERED: PT OWN MED DRAWER 7, Y5N ONE (14:30)
[2019-08-10] MEDS: TORSEMIDE 20 MG TABLET (FP) PO SCH (14:47)
--- NOTE | 2019-08-10 15:09 | PN ---
Progress Note (short form) - Note Progress Note: Renal follow up for GENESIS on CKD Seen and examined at the bedside awake and alert reports upset stomach and burning sensation in stomach no sob at rest no chest pain making urine Vital Signs Temperature 98.1 F 08/10/19 14:58 Pulse Rate 71 08/10/19 14:58 Respiratory Rate 20 08/10/19 14:58 Blood Pressure 118/51 L 08/10/19 14:58 O2 Sat by Pulse Oximetry (%) 100 08/10/19 09:00 Intake & Output 08/07/19 08/08/19 08/09/19 08/10/19 23:59 23:59 23:59 23:59 Intake Total 1060 600 200 0 Balance 1060 600 200 0 NAD on NC O2 RRR Dec BS mild abd distension + edema in LE CBC, BMP 08/10/19 07:30 08/10/19 07:30 Current Medications Acetaminophen (Tylenol -) 650 mg PO Q6H PRN PRN Reason: Fever Or Pain Calcium Carbonate (Os-Mauri 500mg -) 500 mg PO BID [facility] Last Admin: 08/10/19 10:18 Dose: 500 mg Cyclobenzaprine HCl (Cyclobenzaprine Hcl) 5 mg PO BID PRN PRN Reason: MUSCLE SPASMS Darbepoetin Nikolas (Aranesp -) 25 mcg SQ Q7D@1000 [facility] Last Admin: 08/07/19 18:57 Dose: 25 mcg Diphenhydramine HCl (Benadryl -) 25 mg PO Q6H PRN PRN Reason: FOR ITCHING Docusate Sodium (Colace -) 300 mg PO HS [facility] Last Admin: 08/09/19 23:15 Dose: Not Given Fentanyl (Duragesic 25mcg Patch -) 1 patch TD Q72H [facility] Stop: 08/11/19 12:20 Last Admin: 08/10/19 13:45 Dose: 1 patch Guaifenesin (Robitussin Dm -) 10 ml PO Q4H PRN PRN Reason: COUGH Insulin Aspart (Novolog Vial Sliding Scale -) 1 vial SQ ACHS [facility]; Protocol Last Admin: 08/10/19 12:25 Dose: 4 units Levothyroxine Sodium 50 mcg/ (Levothyroxine Sodium 12.5 mcg) 62.5 mcg PO DAILY@ 0700 [facility] Last Admin: 08/10/19 06:36 Dose: 62.5 mcg Metoprolol Succinate (Toprol Xl -) 25 mg PO DAILY [facility] Last Admin: 08/10/19 10:19 Dose: 25 mg Miscellaneous (Duragesic Patch Waste) 1 each MC PRN PRN PRN Reason: PAIN Ondansetron HCl (Zofran Injection) 4 mg IVPB Q6H PRN PRN Reason: NAUSEA Last Admin: 08/09/19 14:23 Dose: 4 mg Oxycodone HCl (Roxicodone -) 5 mg PO Q6H PRN PRN Reason: PAIN LEVEL 6-10 Last Admin: 08/09/19 06:07 Dose: 5 mg Polyethylene Glycol (Miralax (For Daily Use) -) 17 gm PO BID [facility] Last Admin: 08/10/19 10:29 Dose: Not Given Senna (Senna -) 2 tab PO HS [facility] Last Admin: 08/09/19 23:15 Dose: Not Given Torsemide (Demadex -) 40 mg PO DAILY [facility] Last Admin: 08/10/19 14:47 Dose: 40 mg Triamcinolone Acetonide (Aristocort 0.1% Cream -) 1 applic TP BID [facility] Last Admin: 08/10/19 10:29 Dose: 1 applic 53 year old woman with history of CKD (baseline Cr 1.4-1.5), CHF, ETOH abuse, DM , Hypertension, hyperlipidemia, breast cancer s/p bilateral mastecotm, scleroderma and psoriasis presented from home with erythema in LE and noted to have Cr of 2.3. 1. Acute kidney injury in setting of fluid overload/CHF 2. CKD stage 3 3. Hx of CHF 4. Edema of LE 5. cellulitis of LE Renal function stable over the last 24 hours Agree with starting Torsemide 40mg Daily for edema management No acute indication for dialysis. serologic workup showed negative ERICK and negative ASO. ANCA's are still pending. Dose all meds for Cr Cl < 20 avoid IV contrast, NSAIDs or other nephrotoxins Trend renal function and electrolytes daily Thank you Efraín Barillas DO
[2019-08-10] MEDS: PANTOPRAZOLE 40 MG TABLET (FP) PO SCH (16:21)
[2019-08-10] MEDS: DOCUSATE SODIUM 100 MG CAPSULE (FP) PO SCH (23:40)
[2019-08-10] MEDS: SENNOSIDES 8.6MG TABLET (FP) PO SCH (23:41)
[2019-08-10] MEDS: oxyCODONE HCL 5 MG TABLET PO PRN (23:56)
[2019-08-11] MEDS ORDERED: LEVOTHYROXINE NA 25 MCG TABLET (FP) ONE (05:41)
[2019-08-11] MEDS ORDERED: LEVOTHYROXINE NA 50 MCG TABLET (FP) ONE (05:41)
[2019-08-11] MEDS: LEVOTHYROXINE PO SCH (06:24)
[2019-08-11] MEDS: INSULIN SLIDING SCALE (NOVOLOG) 1 VIAL SQ SCH ×4 (06:27→21:36)
[2019-08-11 08:18] LABS: HEMATOCRIT 27.5 % (32.4-45.2); HEMOGLOBIN 8.9 GM/dL (10.7-15.3); MCH 28.2 pg (25.7-33.7); MCHC 32.3 g/dl (32.0-36.0); MEAN CELL VOLUME 87.6 fl (80-96); MEAN PLT VOLUME 7.3 fl (7.5-11.1); PLATELET COUNT 255 K/MM3 (134-434); RBC 3.14 M/mm3 (3.60-5.2); RDW 15.6 % (11.6-15.6); WHITE BLOOD COUNT 3.9 K/mm3 (4.0-10.0)
[2019-08-11 08:48] LABS: BLOOD UREA NITROGEN 35.2 mg/dL (7-18); CALCIUM 8.7 mg/dL (8.5-10.1); CREATININE 3.2 mg/dL (0.55-1.3); MAGNESIUM 1.8 mg/dL (1.8-2.4); PHOSPHOROUS 5.2 mg/dL (2.5-4.9); POTASSIUM 4.1 mmol/L (3.5-5.1)
--- NOTE | 2019-08-11 09:04 | PN ---
Progress Note (short form) - Note Progress Note: Breathing feels OK today. Reports NC was dislodged overnight and her saturation went down to 87%. No CP. Some dry cough. Afebrile. Intake & Output 08/08/19 08/09/19 08/10/19 08/11/19 23:59 23:59 23:59 23:59 Intake Total 600 200 0 100 Balance 600 200 0 100 Weight 138 lb 14.4 oz Last Vital Signs Temp Pulse Resp BP Pulse Ox 97.8 F 70 20 119/62 100 08/11/19 06:00 08/11/19 06:00 08/11/19 06:00 08/11/19 06:00 08/10/19 21:00 Active Medications Acetaminophen (Tylenol -) 650 mg PO Q6H PRN PRN Reason: Fever Or Pain Calcium Carbonate (Os-Mauri 500mg -) 500 mg PO BID [facility] Last Admin: 08/10/19 23:41 Dose: Not Given Cyclobenzaprine HCl (Cyclobenzaprine Hcl) 5 mg PO BID PRN PRN Reason: MUSCLE SPASMS Darbepoetin Nikolas (Aranesp -) 25 mcg SQ Q7D@1000 [facility] Last Admin: 08/07/19 18:57 Dose: 25 mcg Diphenhydramine HCl (Benadryl -) 25 mg PO Q6H PRN PRN Reason: FOR ITCHING Docusate Sodium (Colace -) 300 mg PO HS [facility] Last Admin: 08/10/19 23:40 Dose: Not Given Fentanyl (Duragesic 25mcg Patch -) 1 patch TD Q72H [facility] Stop: 08/11/19 12:20 Last Admin: 08/10/19 13:45 Dose: 1 patch Guaifenesin (Robitussin Dm -) 10 ml PO Q4H PRN PRN Reason: COUGH Insulin Aspart (Novolog Vial Sliding Scale -) 1 vial SQ ACHS [facility]; Protocol Last Admin: 08/11/19 06:27 Dose: Not Given Levothyroxine Sodium 50 mcg/ (Levothyroxine Sodium 12.5 mcg) 62.5 mcg PO DAILY@ 0700 [facility] Last Admin: 08/11/19 06:24 Dose: 62.5 mcg Metoprolol Succinate (Toprol Xl -) 25 mg PO DAILY [facility] Last Admin: 08/10/19 10:19 Dose: 25 mg Miscellaneous (Duragesic Patch Waste) 1 each MC PRN PRN PRN Reason: PAIN Ondansetron HCl (Zofran Injection) 4 mg IVPB Q6H PRN PRN Reason: NAUSEA Last Admin: 08/09/19 14:23 Dose: 4 mg Oxycodone HCl (Roxicodone -) 5 mg PO Q6H PRN PRN Reason: PAIN LEVEL 6-10 Last Admin: 08/10/19 23:56 Dose: 5 mg Pantoprazole Sodium (Protonix -) 40 mg PO DAILY [facility] Last Admin: 08/10/19 16:21 Dose: 40 mg Polyethylene Glycol (Miralax (For Daily Use) -) 17 gm PO BID [facility] Last Admin: 08/10/19 23:40 Dose: Not Given Senna (Senna -) 2 tab PO HS [facility] Last Admin: 08/10/19 23:41 Dose: Not Given Torsemide (Demadex -) 40 mg PO DAILY [facility] Last Admin: 08/10/19 14:47 Dose: 40 mg Triamcinolone Acetonide (Aristocort 0.1% Cream -) 1 applic TP BID [facility] Last Admin: 08/10/19 23:43 Dose: Not Given Constitutional: Yes: NAD Eyes: Yes: Conjunctiva Clear, EOM Intact HENT: Yes: Atraumatic, Normocephalic Neck: Yes: Supple, Trachea Midline Cardiovascular: Yes: Regular Rate and Rhythm Respiratory: Yes: Diminished breath sounds at the bases, few scattered rhonchi ...Clubbing: No Gastrointestinal: Yes: Normal Bowel Sounds, Soft. No: Tenderness Edema: Yes Labs: Laboratory Results - last 24 hr 08/10/19 08/10/19 08/10/19 12:23 16:59 20:02 WBC RBC Hgb Hct MCV MCH MCHC RDW Plt Count MPV Sodium Potassium Chloride Carbon Dioxide Anion Gap BUN Creatinine Est GFR (CKD-EPI)AfAm Est GFR (CKD-EPI)NonAf POC Glucometer 307 231 206 Random Glucose Calcium Phosphorus Magnesium 08/10/19 08/11/19 08/11/19 23:33 06:22 07:45 WBC 3.9 L RBC 3.14 L Hgb 8.9 L Hct 27.5 L MCV 87.6 MCH 28.2 MCHC 32.3 RDW 15.6 Plt Count 255 MPV 7.3 L Sodium Potassium Chloride Carbon Dioxide Anion Gap BUN Creatinine Est GFR (CKD-EPI)AfAm Est GFR (CKD-EPI)NonAf POC Glucometer 181 184 Random Glucose Calcium Phosphorus Magnesium 08/11/19 07:45 WBC RBC Hgb Hct MCV MCH MCHC RDW Plt Count MPV Sodium 131 L Potassium 4.1 Chloride 90 L Carbon Dioxide 29 Anion Gap 12 BUN 35.2 H Creatinine 3.2 H Est GFR (CKD-EPI)AfAm 18.25 Est GFR (CKD-EPI)NonAf 15.75 POC Glucometer Random Glucose 224 H Calcium 8.7 Phosphorus 5.2 H Magnesium 1.8 Problem List - Problems (1) Anasarca Code(s): R60.1 - GENERALIZED EDEMA (2) Pleural effusion Code(s): J90 - PLEURAL EFFUSION, NOT ELSEWHERE CLASSIFIED Assessment/Plan Acute on Chronic Systolic Heart Failure Acute on Chronic Renal Failure Volume Overload/Anasarca improving Pleural Effusions likely from above: Transudative Hyponatremia Pulmonary HTN Scleroderma HTN DM Hyperlipidemia UTI treated Cellulitis Anemia - continue lasix/torsemide per renal/cardiology - monitor urine output, creatinine - would defer further thoracetesis unless large effusions remain despite diuresis or if pt symptomatic - DVT prophylaxis Dr Villavicencio
[2019-08-11] MEDS ORDERED: PT OWN MED DRAWER 7, Y5N ONE (11:02)
[2019-08-11] MEDS: metoPROLOL SUCCINATE 25 MG TAB.SR.24H (FP) PO SCH (11:02)
[2019-08-11] MEDS: CALCIUM (OYSTER SHELL) 500 MG TABLET (FP) PO SCH ×2 (11:02→21:37)
[2019-08-11] MEDS: PANTOPRAZOLE 40 MG TABLET (FP) PO SCH (11:03)
[2019-08-11] MEDS: POLYETHYLENE GLYCOL 3350 119 GM BTL PO SCH ×2 (11:05→21:36)
[2019-08-11] MEDS: TRIAMCINOLONE ACET 0.1% CREAM 15 GM TUBE TP SCH ×2 (11:06→21:36)
[2019-08-11] MEDS: TORSEMIDE 20 MG TABLET (FP) PO SCH (11:13)
--- NOTE | 2019-08-11 12:30 | PN ---
Progress Note (short form) - Note Progress Note: back pain better with pain meds feeling better no sob Vital Signs - 24 hr 08/10/19 08/10/19 08/10/19 14:58 18:00 21:00 Temperature 98.1 F 98.7 F Pulse Rate 71 80 Respiratory 20 20 20 Rate Blood Pressure 118/51 L 116/52 L O2 Sat by Pulse 100 Oximetry (%) 08/10/19 08/11/19 22:00 06:00 Temperature 98.2 F 97.8 F Pulse Rate 71 70 Respiratory 20 20 Rate Blood Pressure 144/73 119/62 O2 Sat by Pulse Oximetry (%) Current Medications Generic Name Dose Route Start Last Admin Trade Name Freq PRN Reason Stop Dose Admin Acetaminophen 650 mg 08/03/19 04:16 Tylenol - PO Q6H PRN Fever Or Pain Calcium Carbonate 500 mg 08/03/19 10:00 08/11/19 11:02 Os-Mauri 500mg - PO 500 mg BID [facility] Administration Cyclobenzaprine HCl 5 mg 08/03/19 04:16 Cyclobenzaprine Hcl PO BID PRN MUSCLE SPASMS Darbepoetin Nikolas 25 mcg 08/07/19 10:00 08/07/19 18:57 Aranesp - SQ 25 mcg Q7D@1000 [facility] Administration Diphenhydramine HCl 25 mg 08/08/19 10:12 Benadryl - PO Q6H PRN FOR ITCHING Docusate Sodium 300 mg 08/03/19 22:00 08/10/19 23:40 Colace - PO Not Given HS [facility] Guaifenesin 10 ml 08/03/19 04:16 Robitussin Dm - PO Q4H PRN COUGH Insulin Aspart 1 vial 08/03/19 07:00 08/11/19 12:14 Novolog Vial Sliding Scale - SQ 4 units ACHS [facility] Administration Protocol Levothyroxine Sodium 50 mcg/ 62.5 mcg 08/03/19 07:00 08/11/19 06:24 Levothyroxine Sodium 12.5 mcg PO 62.5 mcg DAILY@0700 [facility] Administration Metoprolol Succinate 25 mg 08/03/19 10:00 08/11/19 11:02 Toprol Xl - PO 25 mg DAILY [facility] Administration Miscellaneous 1 each 08/04/19 12:20 Duragesic Patch Waste MC PRN PRN PAIN Ondansetron HCl 4 mg 10/07/19 13:12 08/09/19 14:23 Zofran Injection IVPB 4 mg Q6H PRN Administration NAUSEA Oxycodone HCl 5 mg 08/09/19 05:07 08/10/19 23:56 Roxicodone - PO 5 mg Q6H PRN Administration PAIN LEVEL 6-10 Pantoprazole Sodium 40 mg 08/10/19 15:15 08/11/19 11:03 Protonix - PO 40 mg DAILY [facility] Administration Polyethylene Glycol 17 gm 08/04/19 12:30 08/11/19 11:05 Miralax (For Daily Use) - PO Not Given BID [facility] Senna 2 tab 08/03/19 22:00 08/10/19 23:41 Senna - PO Not Given HS [facility] Torsemide 40 mg 08/10/19 13:45 08/11/19 11:13 Demadex - PO 40 mg DAILY [facility] Administration Triamcinolone Acetonide 1 applic 08/03/19 10:00 08/11/19 11:06 Aristocort 0.1% Cream - TP Not Given BID [facility] Laboratory Results - last 24 hr 08/10/19 08/10/19 08/10/19 12:23 16:59 20:02 WBC RBC Hgb Hct MCV MCH MCHC RDW Plt Count MPV Sodium Potassium Chloride Carbon Dioxide Anion Gap BUN Creatinine Est GFR (CKD-EPI)AfAm Est GFR (CKD-EPI)NonAf POC Glucometer 307 231 206 Random Glucose Calcium Phosphorus Magnesium 08/10/19 08/11/19 08/11/19 23:33 06:22 07:45 WBC 3.9 L RBC 3.14 L Hgb 8.9 L Hct 27.5 L MCV 87.6 MCH 28.2 MCHC 32.3 RDW 15.6 Plt Count 255 MPV 7.3 L Sodium Potassium Chloride Carbon Dioxide Anion Gap BUN Creatinine Est GFR (CKD-EPI)AfAm Est GFR (CKD-EPI)NonAf POC Glucometer 181 184 Random Glucose Calcium Phosphorus Magnesium 08/11/19 08/11/19 07:45 12:10 WBC RBC Hgb Hct MCV MCH MCHC RDW Plt Count MPV Sodium 131 L Potassium 4.1 Chloride 90 L Carbon Dioxide 29 Anion Gap 12 BUN 35.2 H Creatinine 3.2 H Est GFR (CKD-EPI)AfAm 18.25 Est GFR (CKD-EPI)NonAf 15.75 POC Glucometer 316 Random Glucose 224 H Calcium 8.7 Phosphorus 5.2 H Magnesium 1.8 MRI- LS spine noted CT abd /pelvis repeated culture --noted S1 S2 irregular lungs decreased abd-- anasarca+erythema abd wall,, tender, multiple psoriatic lesions on abd and legs, decreased edema to anterior abdomen tender lower back leg wound right -- dressing in place wound right leg decreased edema= PLAN CHF systolic decompensation-- -- previous echo from April noted -- EF 35% -- no iv access --> dc lasix--> will start Torsemide PO -- monitor output Cellulitis -- off iv antibiotics -- ID eval noted -- wound care renal failure -- acute on chronic --monitor labs -- off lasix --started Torsemide -- creatinine stable Back pain -- h/o breast CA -- c/o severe pain -- on Fentanyl patch -- PT eval repeat CT abd-- same dc planning to acute rehab --> considering [facility]-- where she can get cardiopulm rehab, close monitoring of renal function Problem List - Problems (1) Acute exacerbation of CHF (congestive heart failure) Code(s): I50.9 - HEART FAILURE, UNSPECIFIED Qualifiers: Heart failure type: unspecified Qualified Code(s): I50.9 - Heart failure, unspecified (2) Anasarca Code(s): R60.1 - GENERALIZED EDEMA (3) Pleural effusion Code(s): J90 - PLEURAL EFFUSION, NOT ELSEWHERE CLASSIFIED (4) Acute renal failure Code(s): N17.9 - ACUTE KIDNEY FAILURE, UNSPECIFIED (5) Acute renal failure superimposed on chronic kidney disease Code(s): N17.9 - ACUTE KIDNEY FAILURE, UNSPECIFIED; N18.9 - CHRONIC KIDNEY DISEASE, UNSPECIFIED (6) Anemia Code(s): D64.9 - ANEMIA, UNSPECIFIED
--- NOTE | 2019-08-11 12:33 | PN ---
Progress Note, Physician History of Present Illness: stable no new issues - Current Medication List Current Medications: Active Medications Acetaminophen (Tylenol -) 650 mg PO Q6H PRN PRN Reason: Fever Or Pain Calcium Carbonate (Os-Mauri 500mg -) 500 mg PO BID [facility] Last Admin: 08/11/19 11:02 Dose: 500 mg Cyclobenzaprine HCl (Cyclobenzaprine Hcl) 5 mg PO BID PRN PRN Reason: MUSCLE SPASMS Darbepoetin Nikolas (Aranesp -) 25 mcg SQ Q7D@1000 [facility] Last Admin: 08/07/19 18:57 Dose: 25 mcg Diphenhydramine HCl (Benadryl -) 25 mg PO Q6H PRN PRN Reason: FOR ITCHING Docusate Sodium (Colace -) 300 mg PO [facility] Last Admin: 08/10/19 23:40 Dose: Not Given Guaifenesin (Robitussin Dm -) 10 ml PO Q4H PRN PRN Reason: COUGH Insulin Aspart (Novolog Vial Sliding Scale -) 1 vial SQ [facility]; Protocol Last Admin: 08/11/19 12:14 Dose: 4 units Levothyroxine Sodium 50 mcg/ (Levothyroxine Sodium 12.5 mcg) 62.5 mcg PO DAILY@ 0700 [facility] Last Admin: 08/11/19 06:24 Dose: 62.5 mcg Metoprolol Succinate (Toprol Xl -) 25 mg PO DAILY [facility] Last Admin: 08/11/19 11:02 Dose: 25 mg Miscellaneous (Duragesic Patch Waste) 1 each MC PRN PRN PRN Reason: PAIN Ondansetron HCl (Zofran Injection) 4 mg IVPB Q6H PRN PRN Reason: NAUSEA Last Admin: 08/09/19 14:23 Dose: 4 mg Oxycodone HCl (Roxicodone -) 5 mg PO Q6H PRN PRN Reason: PAIN LEVEL 6-10 Last Admin: 08/10/19 23:56 Dose: 5 mg Pantoprazole Sodium (Protonix -) 40 mg PO DAILY [facility] Last Admin: 08/11/19 11:03 Dose: 40 mg Polyethylene Glycol (Miralax (For Daily Use) -) 17 gm PO BID [facility] Last Admin: 08/11/19 11:05 Dose: Not Given Senna (Senna -) 2 tab PO [facility] Last Admin: 08/10/19 23:41 Dose: Not Given Torsemide (Demadex -) 40 mg PO DAILY [facility] Last Admin: 08/11/19 11:13 Dose: 40 mg Triamcinolone Acetonide (Aristocort 0.1% Cream -) 1 applic TP BID [facility] Last Admin: 08/11/19 11:06 Dose: Not Given - Objective Vital Signs: Vital Signs Temperature 97.8 F 08/11/19 06:00 Pulse Rate 70 08/11/19 06:00 Respiratory Rate 20 08/11/19 06:00 Blood Pressure 119/62 08/11/19 06:00 O2 Sat by Pulse Oximetry (%) 100 08/10/19 21:00 Constitutional: Yes: No Distress, Calm Cardiovascular: Yes: S1, S2 Respiratory: Yes: Regular, CTA Bilaterally Gastrointestinal: Yes: Normal Bowel Sounds, Soft Musculoskeletal: Yes: WNL Extremities: Yes: Other Wound/Incision: Yes: Dressing Dry and Intact Neurological: Yes: Alert, Oriented Psychiatric: Yes: Alert, Oriented Labs: CBC, BMP 08/11/19 07:45 08/11/19 07:45 INR, PTT INR Cancelled 08/02/19 20:30 Assessment/Plan Problem List - Problems (1) Acute exacerbation of CHF (congestive heart failure) Code(s): I50.9 - HEART FAILURE, UNSPECIFIED Qualifiers: Heart failure type: unspecified Qualified Code(s): I50.9 - Heart failure, unspecified (2) Anasarca Code(s): R60.1 - GENERALIZED EDEMA (3) Pleural effusion Code(s): J90 - PLEURAL EFFUSION, NOT ELSEWHERE CLASSIFIED (4) Acute renal failure Code(s): N17.9 - ACUTE KIDNEY FAILURE, UNSPECIFIED (5) Acute renal failure superimposed on chronic kidney disease Code(s): N17.9 - ACUTE KIDNEY FAILURE, UNSPECIFIED; N18.9 - CHRONIC KIDNEY DISEASE, UNSPECIFIED (6) Anemia Code(s): D64.9 - ANEMIA, UNSPECIFIED cellulitis of the leg wound on the leg plan continue current mgmt rest as per the team
--- NOTE | 2019-08-11 13:19 | PN ---
Progress Note (short form) - Note Progress Note: Renal follow up for GENESIS on CKD Seen and examined at the bedside awake and alert sob is better, appetite is improved no chest pain making urine without dysuria Vital Signs Temperature 97.8 F 08/11/19 06:00 Pulse Rate 70 08/11/19 06:00 Respiratory Rate 20 08/11/19 06:00 Blood Pressure 119/62 08/11/19 06:00 O2 Sat by Pulse Oximetry (%) 100 08/10/19 21:00 Intake & Output 08/08/19 08/09/19 08/10/19 08/11/19 23:59 23:59 23:59 23:59 Intake Total 600 200 0 100 Balance 600 200 0 100 Weight 63.004 kg NAD on NC O2 RRR Dec BS mild abd distension + edema in LE CBC, BMP 08/11/19 07:45 08/11/19 07:45 Current Medications Acetaminophen (Tylenol -) 650 mg PO Q6H PRN PRN Reason: Fever Or Pain Calcium Carbonate (Os-Mauri 500mg -) 500 mg PO BID [facility] Last Admin: 08/11/19 11:02 Dose: 500 mg Cyclobenzaprine HCl (Cyclobenzaprine Hcl) 5 mg PO BID PRN PRN Reason: MUSCLE SPASMS Darbepoetin Nikolas (Aranesp -) 25 mcg SQ Q7D@1000 [facility] Last Admin: 08/07/19 18:57 Dose: 25 mcg Diphenhydramine HCl (Benadryl -) 25 mg PO Q6H PRN PRN Reason: FOR ITCHING Docusate Sodium (Colace -) 300 mg PO HS [facility] Last Admin: 08/10/19 23:40 Dose: Not Given Guaifenesin (Robitussin Dm -) 10 ml PO Q4H PRN PRN Reason: COUGH Insulin Aspart (Novolog Vial Sliding Scale -) 1 vial SQ ACHS [facility]; Protocol Last Admin: 08/11/19 12:14 Dose: 4 units Levothyroxine Sodium 50 mcg/ (Levothyroxine Sodium 12.5 mcg) 62.5 mcg PO DAILY@ 0700 [facility] Last Admin: 08/11/19 06:24 Dose: 62.5 mcg Metoprolol Succinate (Toprol Xl -) 25 mg PO DAILY [facility] Last Admin: 08/11/19 11:02 Dose: 25 mg Miscellaneous (Duragesic Patch Waste) 1 each MC PRN PRN PRN Reason: PAIN Ondansetron HCl (Zofran Injection) 4 mg IVPB Q6H PRN PRN Reason: NAUSEA Last Admin: 08/09/19 14:23 Dose: 4 mg Oxycodone HCl (Roxicodone -) 5 mg PO Q6H PRN PRN Reason: PAIN LEVEL 6-10 Last Admin: 08/10/19 23:56 Dose: 5 mg Pantoprazole Sodium (Protonix -) 40 mg PO DAILY [facility] Last Admin: 08/11/19 11:03 Dose: 40 mg Polyethylene Glycol (Miralax (For Daily Use) -) 17 gm PO BID [facility] Last Admin: 08/11/19 11:05 Dose: Not Given Senna (Senna -) 2 tab PO HS [facility] Last Admin: 08/10/19 23:41 Dose: Not Given Torsemide (Demadex -) 40 mg PO DAILY [facility] Last Admin: 08/11/19 11:13 Dose: 40 mg Triamcinolone Acetonide (Aristocort 0.1% Cream -) 1 applic TP BID [facility] Last Admin: 08/11/19 11:06 Dose: Not Given 53 year old woman with history of CKD (baseline Cr 1.4-1.5), CHF, ETOH abuse, DM , Hypertension, hyperlipidemia, breast cancer s/p bilateral mastecotm, scleroderma and psoriasis presented from home with erythema in LE and noted to have Cr of 2.3. 1. Acute kidney injury in setting of fluid overload/CHF 2. CKD stage 3 3. Hx of CHF 4. Edema of LE 5. cellulitis of LE Renal function stable Continue Torsemide 40mg Daily for edema management No acute indication for dialysis. serologic workup showed negative ERICK and negative ASO. ANCA's are still pending. Dose all meds for Cr Cl < 20 avoid IV contrast, NSAIDs or other nephrotoxins Trend renal function and electrolytes daily would monitor Cr trend over several weeks as outpatient to monitor for improvement Thank you Efraín Barillas DO
[2019-08-11 14:09] LABS: ATYPICAL pANCA <1:20 titer (Neg:<1:20); C-ANCA <1:20 titer (Neg:<1:20)
[2019-08-11] MEDS: oxyCODONE HCL 5 MG TABLET PO PRN (15:13)
--- NOTE | 2019-08-11 16:36 | PN ---
Progress Note, Physician History of Present Illness: seen and examined today in [facility]. no overnight events. no new complaints. - Current Medication List Current Medications: Active Medications Acetaminophen (Tylenol -) 650 mg PO Q6H PRN PRN Reason: Fever Or Pain Calcium Carbonate (Os-Mauri 500mg -) 500 mg PO BID [facility] Last Admin: 08/11/19 11:02 Dose: 500 mg Cyclobenzaprine HCl (Cyclobenzaprine Hcl) 5 mg PO BID PRN PRN Reason: MUSCLE SPASMS Darbepoetin Nikolas (Aranesp -) 25 mcg SQ Q7D@1000 [facility] Last Admin: 08/07/19 18:57 Dose: 25 mcg Diphenhydramine HCl (Benadryl -) 25 mg PO Q6H PRN PRN Reason: FOR ITCHING Docusate Sodium (Colace -) 300 mg PO HS [facility] Last Admin: 08/10/19 23:40 Dose: Not Given Guaifenesin (Robitussin Dm -) 10 ml PO Q4H PRN PRN Reason: COUGH Insulin Aspart (Novolog Vial Sliding Scale -) 1 vial SQ [facility]; Protocol Last Admin: 08/11/19 12:14 Dose: 4 units Levothyroxine Sodium 50 mcg/ (Levothyroxine Sodium 12.5 mcg) 62.5 mcg PO DAILY@ 0700 [facility] Last Admin: 08/11/19 06:24 Dose: 62.5 mcg Metoprolol Succinate (Toprol Xl -) 25 mg PO DAILY [facility] Last Admin: 08/11/19 11:02 Dose: 25 mg Miscellaneous (Duragesic Patch Waste) 1 each MC PRN PRN PRN Reason: PAIN Ondansetron HCl (Zofran Injection) 4 mg IVPB Q6H PRN PRN Reason: NAUSEA Last Admin: 08/09/19 14:23 Dose: 4 mg Oxycodone HCl (Roxicodone -) 5 mg PO Q6H PRN PRN Reason: PAIN LEVEL 6-10 Last Admin: 08/11/19 15:13 Dose: 5 mg Pantoprazole Sodium (Protonix -) 40 mg PO DAILY [facility] Last Admin: 08/11/19 11:03 Dose: 40 mg Polyethylene Glycol (Miralax (For Daily Use) -) 17 gm PO BID [facility] Last Admin: 08/11/19 11:05 Dose: Not Given Senna (Senna -) 2 tab PO HS [facility] Last Admin: 08/10/19 23:41 Dose: Not Given Torsemide (Demadex -) 40 mg PO DAILY [facility] Last Admin: 08/11/19 11:13 Dose: 40 mg Triamcinolone Acetonide (Aristocort 0.1% Cream -) 1 applic TP BID [facility] Last Admin: 08/11/19 11:06 Dose: Not Given - Objective Vital Signs: Vital Signs Temperature 98.5 F 08/11/19 14:54 Pulse Rate 67 08/11/19 14:54 Respiratory Rate 20 08/11/19 14:54 Blood Pressure 131/67 08/11/19 14:54 O2 Sat by Pulse Oximetry (%) 100 08/11/19 09:00 Constitutional: Yes: No Distress, Calm Eyes: Yes: Conjunctiva Clear, EOM Intact, PERRL HENT: Yes: Atraumatic, Normocephalic Neck: Yes: Supple, Trachea Midline Cardiovascular: Yes: Regular Rate and Rhythm, S1, S2. No: Bradycardia, Tachycardia, Pulse Irregular, Bruit, JVD, Gallop, Murmur, Rub, S3, S4, Varicosities Respiratory: Yes: Regular, Diminished, On Nasal O2. No: Rales, Rhonchi, SOB, Wheezes Gastrointestinal: Yes: Normal Bowel Sounds, Soft Edema: No Peripheral Pulses WNL: Yes Neurological: Yes: Alert, Oriented Psychiatric: Yes: Alert, Oriented Labs: CBC, BMP 08/11/19 07:45 08/11/19 07:45 INR, PTT INR Cancelled 08/02/19 20:30 - ....Imaging Chest X-ray: Report Reviewed, Image Reviewed EKG: Report Reviewed, Image Reviewed Other: Report Reviewed, Image Reviewed Assessment/Plan This is a 53 year old female with a history of DM, HTN, HLD, CKD, scleroderma, nephrolithasis, recurrent UTI's, Chronic systolic CHF (30-35% EF), and breast Ca S/P bilateral mastectomy, falls, anasarca who was sent to the ER for abdominal pain, also found with sob and pleural effusions on CXR. Echo 04/12/19: EF 30-35%, pleural effusion and pleural mass. RVSP 45mmHg. Nuclear Stress 04/22/19 Inferolateral infarct, no ischemia EF 37%. Impression: Acute on chronic biventricular CHF Anasarca 2/2 3rd spacing do to hypoalbuminemia Following I's/O's/Wt's/Lytes BUN/creat trended up Pulm consult appreciated, repeat Cxray shows stable/improved pleural effusions No need for thoracentesis at this time Cont Torsemide at current dose Cont Toprol. no further inpatient cardiac work up needed at this time. Will see as needed. Please call with any additional questions.
[2019-08-11] MEDS: DOCUSATE SODIUM 100 MG CAPSULE (FP) PO SCH (21:36)
[2019-08-11] MEDS: SENNOSIDES 8.6MG TABLET (FP) PO SCH (21:37)
[2019-08-12] MEDS ORDERED: LEVOTHYROXINE NA 50 MCG TABLET (FP) ONE (05:22)
[2019-08-12] MEDS ORDERED: LEVOTHYROXINE NA 25 MCG TABLET (FP) ONE (05:22)
[2019-08-12] MEDS: LEVOTHYROXINE PO SCH (06:03)
[2019-08-12] MEDS: INSULIN SLIDING SCALE (NOVOLOG) 1 VIAL SQ SCH ×4 (06:05→21:09)
[2019-08-12 09:14] LABS: BLOOD UREA NITROGEN 33.3 mg/dL (7-18); CALCIUM 8.5 mg/dL (8.5-10.1); CREATININE 3.4 mg/dL (0.55-1.3); POTASSIUM 4.1 mmol/L (3.5-5.1)
[2019-08-12] MEDS ORDERED: PT OWN MED DRAWER 7, Y5N ONE (10:06)
[2019-08-12] MEDS: POLYETHYLENE GLYCOL 3350 119 GM BTL PO SCH ×2 (10:34→21:09)
[2019-08-12] MEDS: metoPROLOL SUCCINATE 25 MG TAB.SR.24H (FP) PO SCH (10:34)
[2019-08-12] MEDS: CALCIUM (OYSTER SHELL) 500 MG TABLET (FP) PO SCH ×2 (10:34→21:08)
[2019-08-12] MEDS: TRIAMCINOLONE ACET 0.1% CREAM 15 GM TUBE TP SCH ×2 (10:35→21:09)
[2019-08-12] MEDS: TORSEMIDE 20 MG TABLET (FP) PO SCH (10:35)
--- NOTE | 2019-08-12 10:46 | PN ---
Progress Note (short form) - Note Progress Note: PULMONARY Denies shortness of breath or chest pain. +dizziness and ear ringing. Vital Signs Period Temp Pulse Resp BP Sys/Sibley Pulse Ox Last 24 Hr 98.0 F-98.5 F 64-79 18-20 111-135/57-71 100-100 Gen: NAD at rest Heart: RRR Lung: decreased breath sounds at the left base Abd: soft, nontender Ext: no edema CBC, BMP 08/11/19 07:45 08/12/19 08:28 Active Medications Acetaminophen (Tylenol -) 650 mg PO Q6H PRN PRN Reason: Fever Or Pain Calcium Carbonate (Os-Mauri 500mg -) 500 mg PO BID [facility] Last Admin: 08/12/19 10:34 Dose: 500 mg Cyclobenzaprine HCl (Cyclobenzaprine Hcl) 5 mg PO BID PRN PRN Reason: MUSCLE SPASMS Darbepoetin Nikolas (Aranesp -) 25 mcg SQ Q7D@1000 [facility] Last Admin: 08/07/19 18:57 Dose: 25 mcg Diphenhydramine HCl (Benadryl -) 25 mg PO Q6H PRN PRN Reason: FOR ITCHING Docusate Sodium (Colace -) 300 mg PO [facility] Last Admin: 08/11/19 21:36 Dose: Not Given Guaifenesin (Robitussin Dm -) 10 ml PO Q4H PRN PRN Reason: COUGH Insulin Aspart (Novolog Vial Sliding Scale -) 1 vial SQ [facility]; Protocol Last Admin: 08/12/19 06:05 Dose: 6 units Levothyroxine Sodium 50 mcg/ (Levothyroxine Sodium 12.5 mcg) 62.5 mcg PO DAILY@ 0700 [facility] Last Admin: 08/12/19 06:03 Dose: 62.5 mcg Metoprolol Succinate (Toprol Xl -) 25 mg PO DAILY [facility] Last Admin: 08/12/19 10:34 Dose: 25 mg Miscellaneous (Duragesic Patch Waste) 1 each MC PRN PRN PRN Reason: PAIN Ondansetron HCl (Zofran Injection) 4 mg IVPB Q6H PRN PRN Reason: NAUSEA Last Admin: 08/09/19 14:23 Dose: 4 mg Oxycodone HCl (Roxicodone -) 5 mg PO Q6H PRN PRN Reason: PAIN LEVEL 6-10 Last Admin: 08/11/19 15:13 Dose: 5 mg Pantoprazole Sodium (Protonix -) 40 mg PO DAILY [facility] Last Admin: 08/11/19 11:03 Dose: 40 mg Polyethylene Glycol (Miralax (For Daily Use) -) 17 gm PO BID [facility] Last Admin: 08/12/19 10:34 Dose: 17 grams Senna (Senna -) 2 tab PO HS [facility] Last Admin: 08/11/19 21:37 Dose: Not Given Torsemide (Demadex -) 40 mg PO DAILY [facility] Last Admin: 08/12/19 10:35 Dose: 40 mg Triamcinolone Acetonide (Aristocort 0.1% Cream -) 1 applic TP BID [facility] Last Admin: 08/12/19 10:35 Dose: 1 applic A/P Acute on Chronic Systolic Heart Failure Acute on Chronic Renal Failure Volume Overload/Anasarca improving Pleural Effusions likely from above Hyponatremia Pulmonary HTN Scleroderma HTN DM Hyperlipidemia UTI treated Cellulitis Anemia - prior diagnostic thoracentesis x 3 showing transudative fluid - consider holding diuretic - monitor urine output, creatinine - would defer further thoracetesis unless large effusions remain despite diuresis or if pt symptomatic - DVT prophylaxis Problem List - Problems (1) Anasarca Code(s): R60.1 - GENERALIZED EDEMA (2) Pleural effusion Code(s): J90 - PLEURAL EFFUSION, NOT ELSEWHERE CLASSIFIED
[2019-08-12] MEDS: PANTOPRAZOLE 40 MG TABLET (FP) PO SCH (10:54)
--- NOTE | 2019-08-12 12:27 | DS ---
Physical Examination Vital Signs: Vital Signs Temperature 98.5 F 08/12/19 06:00 Pulse Rate 79 08/12/19 06:00 Respiratory Rate 20 08/12/19 08:44 Blood Pressure 111/66 08/12/19 06:00 O2 Sat by Pulse Oximetry (%) 100 08/12/19 08:44 Labs: CBC, BMP 08/11/19 07:45 08/12/19 08:28 Discharge Summary Problems reviewed: Yes Reason For Visit: ACUTE ON CHRONIC CONGESTIVE HEART FAILURE Current Active Problems Abdominal pain (Acute) Acute exacerbation of CHF (congestive heart failure) (Acute) Anasarca (Acute) Back pain (Acute) Pleural effusion (Acute) Condition: Guarded - Instructions Diet, Activity, Other Instructions: Follow up in wound care clinic upon discharge. Referrals: Desmond Rodriguez DO [Staff Physician] - - Home Medications Comprehensive Discharge Medication List: Ambulatory Orders Metoprolol Succinate [Toprol XL -] 25 mg PO DAILY 07/19/14 Acetaminophen [Tylenol .Regular Strength -] 650 mg PO Q6H PRN tablet 04/23/19 Triamcinolone 0.1% Cream [Aristocort 0.1% Cream -] 1 applic TP BID applic 04/23 Cyclobenzaprine HCl 5 mg PO BID PRN #60 tablet 06/09/19 Levothyroxine [Synthroid -] 62.5 mcg PO DAILY@0700 30 Days #30 tablet 06/09/19 Oxycodone HCl 5 mg PO BID PRN #30 tablet MDD 2 06/11/19 Pantoprazole Sodium [Protonix -] 40 mg PO DAILY tablet.ec 06/11/19 Albuterol 0.083% Nebulizer Felicitas [Ventolin 0.083% Nebulizer Soln -] 1 neb NEB Q6H PRN 08/02/19 Bismuth Tribromoph/Petrolatum [Xeroform Petrolatum Dress] 1 each TP BID Calcium Carbonate [Oyster Shell Calcium] 500 mg PO BID 08/02/19 Cyclobenzaprine HCl [Flexeril -] 5 mg PO BID PRN 08/02/19 Docusate Sodium [Colace] 300 mg PO HS 08/02/19 Ergocalciferol (Vitamin D2) [Vitamin D2] 50,000 unit PO WEEKLY 08/02/19 Guaifenesin Dm [Robitussin Dm -] 10 ml PO Q4H PRN 08/02/19 Insulin Glargine,Hum.rec.anlog [Basaglar Kwikpen U-100] 3 unit SQ Q12H 08/02/19 Insulin Lispro [Humalog Kwikpen U-100] 100 unit SQ AC 08/02/19 Lidocaine [Aspercreme] 1 each TP DAILY 08/02/19 Sennosides [Senna] 17.2 mg PO HS 08/02/19 Sodium Bicarbonate - 650 mg PO AC 08/02/19 Diphenhydramine HCl [Benadryl Capsule -] 25 mg PO Q6H PRN #60 capsule 08/11/19 FENTANYL 25mcg PATCH [DURAGESIC 25mcg PATCH -] 1 patch TD Q72H patch.td72 MDD 1 08/11/19 Polyethylene Glycol 3350 [Miralax 119 gm Btl -] 17 gm PO BID #1 bottle 08/11/19 Torsemide [Demadex -] 40 mg PO DAILY #30 tablet 08/11/19
--- NOTE | 2019-08-12 14:14 | PN ---
Progress Note, Physician History of Present Illness: stable no new issues - Current Medication List Current Medications: Active Medications Acetaminophen (Tylenol -) 650 mg PO Q6H PRN PRN Reason: Fever Or Pain Calcium Carbonate (Os-Mauri 500mg -) 500 mg PO BID [facility] Last Admin: 08/12/19 10:34 Dose: 500 mg Cyclobenzaprine HCl (Cyclobenzaprine Hcl) 5 mg PO BID PRN PRN Reason: MUSCLE SPASMS Darbepoetin Nikolas (Aranesp -) 25 mcg SQ Q7D@1000 [facility] Last Admin: 08/07/19 18:57 Dose: 25 mcg Diphenhydramine HCl (Benadryl -) 25 mg PO Q6H PRN PRN Reason: FOR ITCHING Docusate Sodium (Colace -) 300 mg PO [facility] Last Admin: 08/11/19 21:36 Dose: Not Given Guaifenesin (Robitussin Dm -) 10 ml PO Q4H PRN PRN Reason: COUGH Insulin Aspart (Novolog Vial Sliding Scale -) 1 vial SQ [facility]; Protocol Last Admin: 08/12/19 11:56 Dose: 2 units Levothyroxine Sodium 50 mcg/ (Levothyroxine Sodium 12.5 mcg) 62.5 mcg PO DAILY@ 0700 [facility] Last Admin: 08/12/19 06:03 Dose: 62.5 mcg Metoprolol Succinate (Toprol Xl -) 25 mg PO DAILY [facility] Last Admin: 08/12/19 10:34 Dose: 25 mg Miscellaneous (Duragesic Patch Waste) 1 each MC PRN PRN PRN Reason: PAIN Ondansetron HCl (Zofran Injection) 4 mg IVPB Q6H PRN PRN Reason: NAUSEA Last Admin: 08/09/19 14:23 Dose: 4 mg Oxycodone HCl (Roxicodone -) 5 mg PO Q6H PRN PRN Reason: PAIN LEVEL 6-10 Last Admin: 08/11/19 15:13 Dose: 5 mg Pantoprazole Sodium (Protonix -) 40 mg PO DAILY [facility] Last Admin: 08/12/19 10:54 Dose: 40 mg Polyethylene Glycol (Miralax (For Daily Use) -) 17 gm PO BID [facility] Last Admin: 08/12/19 10:34 Dose: 17 grams Senna (Senna -) 2 tab PO [facility] Last Admin: 08/11/19 21:37 Dose: Not Given Torsemide (Demadex -) 40 mg PO DAILY [facility] Last Admin: 08/12/19 10:35 Dose: 40 mg Triamcinolone Acetonide (Aristocort 0.1% Cream -) 1 applic TP BID [facility] Last Admin: 08/12/19 10:35 Dose: 1 applic - Objective Vital Signs: Vital Signs Temperature 97.8 F 08/12/19 12:00 Pulse Rate 72 08/12/19 12:00 Respiratory Rate 20 08/12/19 12:00 Blood Pressure 121/77 08/12/19 12:00 O2 Sat by Pulse Oximetry (%) 100 08/12/19 08:44 Constitutional: Yes: No Distress, Calm Cardiovascular: Yes: S1, S2 Respiratory: Yes: Regular, CTA Bilaterally Gastrointestinal: Yes: Normal Bowel Sounds, Soft Musculoskeletal: Yes: WNL Extremities: Yes: Other Wound/Incision: Yes: Dressing Dry and Intact Neurological: Yes: Alert, Oriented Psychiatric: Yes: Alert, Oriented Labs: CBC, BMP 08/11/19 07:45 08/12/19 08:28 INR, PTT INR Cancelled 08/02/19 20:30 Assessment/Plan Problem List - Problems (1) Acute exacerbation of CHF (congestive heart failure) Code(s): I50.9 - HEART FAILURE, UNSPECIFIED Qualifiers: Heart failure type: unspecified Qualified Code(s): I50.9 - Heart failure, unspecified (2) Anasarca Code(s): R60.1 - GENERALIZED EDEMA (3) Pleural effusion Code(s): J90 - PLEURAL EFFUSION, NOT ELSEWHERE CLASSIFIED (4) Acute renal failure Code(s): N17.9 - ACUTE KIDNEY FAILURE, UNSPECIFIED (5) Acute renal failure superimposed on chronic kidney disease Code(s): N17.9 - ACUTE KIDNEY FAILURE, UNSPECIFIED; N18.9 - CHRONIC KIDNEY DISEASE, UNSPECIFIED (6) Anemia Code(s): D64.9 - ANEMIA, UNSPECIFIED cellulitis of the leg wound on the leg plan continue current mgmt rest as per the team
--- NOTE | 2019-08-12 14:44 | PN ---
Progress Note (short form) - Note Progress Note: Renal follow up for GENESIS on CKD Seen and examined at the bedside awake and alert had some nausea this am. Denies any CP, abd pain, fever or chills making urine no sob at rest Vital Signs Temperature 97.8 F 08/12/19 12:00 Pulse Rate 72 08/12/19 12:00 Respiratory Rate 20 08/12/19 12:00 Blood Pressure 121/77 08/12/19 12:00 O2 Sat by Pulse Oximetry (%) 100 08/12/19 08:44 Intake & Output 08/09/19 08/10/19 08/11/19 08/12/19 23:59 23:59 23:59 23:59 Intake Total 200 0 1770 400 Balance 200 0 1770 400 Weight 63.004 kg NAD on NC O2 RRR Dec BS mild abd distension + edema in LE CBC, BMP 08/11/19 07:45 08/12/19 08:28 Current Medications Acetaminophen (Tylenol -) 650 mg PO Q6H PRN PRN Reason: Fever Or Pain Calcium Carbonate (Os-Mauri 500mg -) 500 mg PO BID [facility] Last Admin: 08/12/19 10:34 Dose: 500 mg Cyclobenzaprine HCl (Cyclobenzaprine Hcl) 5 mg PO BID PRN PRN Reason: MUSCLE SPASMS Darbepoetin Nikolas (Aranesp -) 25 mcg SQ Q7D@1000 [facility] Last Admin: 08/07/19 18:57 Dose: 25 mcg Diphenhydramine HCl (Benadryl -) 25 mg PO Q6H PRN PRN Reason: FOR ITCHING Docusate Sodium (Colace -) 300 mg PO HS [facility] Last Admin: 08/11/19 21:36 Dose: Not Given Guaifenesin (Robitussin Dm -) 10 ml PO Q4H PRN PRN Reason: COUGH Insulin Aspart (Novolog Vial Sliding Scale -) 1 vial SQ [facility]; Protocol Last Admin: 08/12/19 11:56 Dose: 2 units Levothyroxine Sodium 50 mcg/ (Levothyroxine Sodium 12.5 mcg) 62.5 mcg PO DAILY@ 0700 [facility] Last Admin: 08/12/19 06:03 Dose: 62.5 mcg Metoprolol Succinate (Toprol Xl -) 25 mg PO DAILY [facility] Last Admin: 08/12/19 10:34 Dose: 25 mg Miscellaneous (Duragesic Patch Waste) 1 each MC PRN PRN PRN Reason: PAIN Ondansetron HCl (Zofran Injection) 4 mg IVPB Q6H PRN PRN Reason: NAUSEA Last Admin: 08/09/19 14:23 Dose: 4 mg Oxycodone HCl (Roxicodone -) 5 mg PO Q6H PRN PRN Reason: PAIN LEVEL 6-10 Last Admin: 08/11/19 15:13 Dose: 5 mg Pantoprazole Sodium (Protonix -) 40 mg PO DAILY [facility] Last Admin: 08/12/19 10:54 Dose: 40 mg Polyethylene Glycol (Miralax (For Daily Use) -) 17 gm PO BID [facility] Last Admin: 08/12/19 10:34 Dose: 17 grams Senna (Senna -) 2 tab PO HS [facility] Last Admin: 08/11/19 21:37 Dose: Not Given Torsemide (Demadex -) 40 mg PO DAILY [facility] Last Admin: 08/12/19 10:35 Dose: 40 mg Triamcinolone Acetonide (Aristocort 0.1% Cream -) 1 applic TP BID [facility] Last Admin: 08/12/19 10:35 Dose: 1 applic 53 year old woman with history of CKD (baseline Cr 1.4-1.5), CHF, ETOH abuse, DM , Hypertension, hyperlipidemia, breast cancer s/p bilateral mastecotm, scleroderma and psoriasis presented from home with erythema in LE and noted to have Cr of 2.3. 1. Acute kidney injury in setting of fluid overload/CHF 2. CKD stage 3 3. Hx of CHF 4. Edema of LE 5. cellulitis of LE Renal function stable. Etiology of worsening renal function not clear. Could be related to hemodynamic changes from CHF leading to renal injury however can also consider underlying GN or vascular process. Serologic studies have been negative thus far. Would continue current mangement with diuretics and if no improvement seen in renal function in 1-2 week can consider more aggressive diagnostic testing such as biopsy. Continue Torsemide 40mg Daily for edema management No acute indication for dialysis. serologic workup showed negative ERICK, negative ASO and negative ANCA's. Dose all meds for Cr Cl < 20 avoid IV contrast, NSAIDs or other nephrotoxins Trend renal function and electrolytes daily stable for discharge with close outpatient follow up Thank you Efraín Barillas DO
[2019-08-12 14:47] VITALS: BMI 27.8
[2019-08-12] MEDS: SENNOSIDES 8.6MG TABLET (FP) PO SCH (21:09)
[2019-08-12] MEDS: DOCUSATE SODIUM 100 MG CAPSULE (FP) PO SCH (21:09)
[2019-08-13] MEDS ORDERED: LEVOTHYROXINE NA 25 MCG TABLET (FP) ONE (05:51)
[2019-08-13] MEDS ORDERED: LEVOTHYROXINE NA 50 MCG TABLET (FP) ONE (05:51)
[2019-08-13] MEDS: INSULIN SLIDING SCALE (NOVOLOG) 1 VIAL SQ SCH ×4 (06:24→21:51)
[2019-08-13] MEDS: LEVOTHYROXINE PO SCH (06:29)
[2019-08-13] MEDS: PANTOPRAZOLE 40 MG TABLET (FP) PO SCH (10:04)
[2019-08-13] MEDS: CALCIUM (OYSTER SHELL) 500 MG TABLET (FP) PO SCH ×2 (10:04→21:50)
[2019-08-13] MEDS: TORSEMIDE 20 MG TABLET (FP) PO SCH (10:05)
[2019-08-13] MEDS: POLYETHYLENE GLYCOL 3350 119 GM BTL PO SCH ×2 (10:05→21:47)
[2019-08-13] MEDS: TRIAMCINOLONE ACET 0.1% CREAM 15 GM TUBE TP SCH ×2 (10:05→21:47)
[2019-08-13] MEDS: metoPROLOL SUCCINATE 25 MG TAB.SR.24H (FP) PO SCH (10:10)
--- NOTE | 2019-08-13 10:43 | PN ---
Progress Note (short form) - Note Progress Note: pt seen/ examined. chart is reviewed awake/ comfortable Vital Signs Temp 99.1 F 08/13/19 06:00 Pulse 90 08/13/19 06:00 Resp 18 08/13/19 08:28 BP 120/62 08/13/19 06:00 Pulse Ox 99 08/13/19 08:28 Intake & Output 08/12/19 08/12/19 08/13/19 11:59 23:59 11:59 Intake Total 400 450 480 Balance 400 450 480 Intake: IV 0 IVSL 0 IVPB 0 Oral 400 450 480 Other: Voiding Method Incontinent Incontinent Incontinent # Unmeasured Voids Void 2 2 Bowel Movement Yes Yes # Bowel Movements 1 Body Mass Index (BMI) 27.8 Active Medications Acetaminophen (Tylenol -) 650 mg PO Q6H PRN PRN Reason: Fever Or Pain Calcium Carbonate (Os-Mauri 500mg -) 500 mg PO BID [facility] Last Admin: 08/13/19 10:04 Dose: 500 mg Cyclobenzaprine HCl (Cyclobenzaprine Hcl) 5 mg PO BID PRN PRN Reason: MUSCLE SPASMS Darbepoetin Nikolas (Aranesp -) 25 mcg SQ Q7D@1000 [facility] Last Admin: 08/07/19 18:57 Dose: 25 mcg Diphenhydramine HCl (Benadryl -) 25 mg PO Q6H PRN PRN Reason: FOR ITCHING Docusate Sodium (Colace -) 300 mg PO HS [facility] Last Admin: 08/12/19 21:09 Dose: Not Given Guaifenesin (Robitussin Dm -) 10 ml PO Q4H PRN PRN Reason: COUGH Insulin Aspart (Novolog Vial Sliding Scale -) 1 vial SQ [facility]; Protocol Last Admin: 08/13/19 06:24 Dose: 10 units Levothyroxine Sodium 50 mcg/ (Levothyroxine Sodium 12.5 mcg) 62.5 mcg PO DAILY@ 0700 [facility] Last Admin: 08/13/19 06:29 Dose: 62.5 mcg Metoprolol Succinate (Toprol Xl -) 25 mg PO DAILY [facility] Last Admin: 08/13/19 10:10 Dose: 25 mg Miscellaneous (Duragesic Patch Waste) 1 each MC PRN PRN PRN Reason: PAIN Ondansetron HCl (Zofran Injection) 4 mg IVPB Q6H PRN PRN Reason: NAUSEA Last Admin: 08/09/19 14:23 Dose: 4 mg Oxycodone HCl (Roxicodone -) 5 mg PO Q6H PRN PRN Reason: PAIN LEVEL 6-10 Last Admin: 08/11/19 15:13 Dose: 5 mg Pantoprazole Sodium (Protonix -) 40 mg PO DAILY [facility] Last Admin: 08/13/19 10:04 Dose: 40 mg Polyethylene Glycol (Miralax (For Daily Use) -) 17 gm PO BID [facility] Last Admin: 08/13/19 10:05 Dose: Not Given Senna (Senna -) 2 tab PO HS [facility] Last Admin: 08/12/19 21:09 Dose: Not Given Torsemide (Demadex -) 40 mg PO DAILY [facility] Last Admin: 08/13/19 10:05 Dose: 40 mg Triamcinolone Acetonide (Aristocort 0.1% Cream -) 1 applic TP BID [facility] Last Admin: 08/13/19 10:05 Dose: 1 applic CBC, BMP 08/11/19 07:45 08/12/19 08:28 Physical Exam Awake/ comfortable S1 S2 irregular lungs decreased abd-- anasarca+erythema abd wall,, tender, multiple psoriatic lesions on abd and legs, decreased edema to anterior abdomen tender lower back leg wound right -- dressing in place wound right leg decreased edema PLAN CHF systolic decompensation-- -- previous echo from April noted -- EF 35% -- no iv access --> dc lasix--> on Torsemide PO -- monitor output Cellulitis -- off iv antibiotics -- ID eval noted -- wound care renal failure -- acute on chronic --monitor labs -- off lasix --started Torsemide -- creatinine stable Back pain -- h/o breast CA -- c/o severe pain -- on Fentanyl patch -- PT eval repeat CT abd-- same stable continue present care awaiting Authorization from Insurance for STR Problem List - Problems (1) Back pain Code(s): M54.9 - DORSALGIA, UNSPECIFIED (2) Abdominal pain Code(s): R10.9 - UNSPECIFIED ABDOMINAL PAIN (3) Acute exacerbation of CHF (congestive heart failure) Code(s): I50.9 - HEART FAILURE, UNSPECIFIED Qualifiers: Heart failure type: unspecified Qualified Code(s): I50.9 - Heart failure, unspecified (4) Anasarca Code(s): R60.1 - GENERALIZED EDEMA (5) Pleural effusion Code(s): J90 - PLEURAL EFFUSION, NOT ELSEWHERE CLASSIFIED (6) Acute renal failure superimposed on chronic kidney disease Code(s): N17.9 - ACUTE KIDNEY FAILURE, UNSPECIFIED; N18.9 - CHRONIC KIDNEY DISEASE, UNSPECIFIED (7) Anemia Code(s): D64.9 - ANEMIA, UNSPECIFIED (8) Anemia in chronic kidney disease Code(s): N18.9 - CHRONIC KIDNEY DISEASE, UNSPECIFIED; D63.1 - ANEMIA IN CHRONIC KIDNEY DISEASE (9) Breast cancer Code(s): C50.919 - MALIGNANT NEOPLASM OF UNSP SITE OF UNSPECIFIED FEMALE BREAST (10) Cellulitis Code(s): L03.90 - CELLULITIS, UNSPECIFIED Qualifiers: Site of cellulitis: unspecified site Qualified Code(s): L03.90 - Cellulitis , unspecified (11) Diabetes type 1, uncontrolled Code(s): E10.65 - TYPE 1 DIABETES MELLITUS WITH HYPERGLYCEMIA (12) Diarrhea Code(s): R19.7 - DIARRHEA, UNSPECIFIED (13) Scleroderma Code(s): M34.9 - SYSTEMIC SCLEROSIS, UNSPECIFIED
--- NOTE | 2019-08-13 12:44 | PN ---
Progress Note (short form) - Note Progress Note: Renal follow up for GENESIS on CKD Seen and examined at the bedside awake and alert has some anxiety last night and could not sleep well denies any sob, chest pain, abd pain, fever or chills making urine tolerating oral diet Vital Signs Temperature 99.5 F 08/13/19 11:33 Pulse Rate 105 H 08/13/19 11:33 Respiratory Rate 18 08/13/19 11:33 Blood Pressure 129/77 08/13/19 11:33 O2 Sat by Pulse Oximetry (%) 99 08/13/19 08:28 Intake & Output 08/10/19 08/11/19 08/12/19 08/13/19 23:59 23:59 23:59 23:59 Intake Total 0 1770 850 480 Balance 0 1770 850 480 Weight 63.004 kg NAD on NC O2 RRR Dec BS mild abd distension + edema in LE CBC, BMP 08/11/19 07:45 08/12/19 08:28 Current Medications Acetaminophen (Tylenol -) 650 mg PO Q6H PRN PRN Reason: Fever Or Pain Calcium Carbonate (Os-Mauri 500mg -) 500 mg PO BID [facility] Last Admin: 08/13/19 10:04 Dose: 500 mg Cyclobenzaprine HCl (Cyclobenzaprine Hcl) 5 mg PO BID PRN PRN Reason: MUSCLE SPASMS Darbepoetin Nikolas (Aranesp -) 25 mcg SQ Q7D@1000 [facility] Last Admin: 08/07/19 18:57 Dose: 25 mcg Diphenhydramine HCl (Benadryl -) 25 mg PO Q6H PRN PRN Reason: FOR ITCHING Docusate Sodium (Colace -) 300 mg PO HS [facility] Last Admin: 08/12/19 21:09 Dose: Not Given Guaifenesin (Robitussin Dm -) 10 ml PO Q4H PRN PRN Reason: COUGH Insulin Aspart (Novolog Vial Sliding Scale -) 1 vial SQ [facility]; Protocol Last Admin: 08/13/19 12:08 Dose: 3 units Levothyroxine Sodium 50 mcg/ (Levothyroxine Sodium 12.5 mcg) 62.5 mcg PO DAILY@ 0700 [facility] Last Admin: 08/13/19 06:29 Dose: 62.5 mcg Metoprolol Succinate (Toprol Xl -) 25 mg PO DAILY [facility] Last Admin: 08/13/19 10:10 Dose: 25 mg Miscellaneous (Duragesic Patch Waste) 1 each MC PRN PRN PRN Reason: PAIN Ondansetron HCl (Zofran Injection) 4 mg IVPB Q6H PRN PRN Reason: NAUSEA Last Admin: 08/09/19 14:23 Dose: 4 mg Oxycodone HCl (Roxicodone -) 5 mg PO Q6H PRN PRN Reason: PAIN LEVEL 6-10 Last Admin: 08/11/19 15:13 Dose: 5 mg Pantoprazole Sodium (Protonix -) 40 mg PO DAILY [facility] Last Admin: 08/13/19 10:04 Dose: 40 mg Polyethylene Glycol (Miralax (For Daily Use) -) 17 gm PO BID [facility] Last Admin: 08/13/19 10:05 Dose: Not Given Senna (Senna -) 2 tab PO HS [facility] Last Admin: 08/12/19 21:09 Dose: Not Given Torsemide (Demadex -) 40 mg PO DAILY [facility] Last Admin: 08/13/19 10:05 Dose: 40 mg Triamcinolone Acetonide (Aristocort 0.1% Cream -) 1 applic TP BID [facility] Last Admin: 08/13/19 10:05 Dose: 1 applic 53 year old woman with history of CKD (baseline Cr 1.4-1.5), CHF, ETOH abuse, DM , Hypertension, hyperlipidemia, breast cancer s/p bilateral mastecotm, scleroderma and psoriasis presented from home with erythema in LE and noted to have Cr of 2.3. 1. Acute kidney injury in setting of fluid overload/CHF 2. CKD stage 3 3. Hx of CHF 4. Edema of LE 5. cellulitis of LE Renal function stable. Serologic studies have been negative thus far. no urgent indication for renal replacement therapy Would continue current management with diuretics and if no improvement seen in renal function in 1-2 week can consider more aggressive diagnostic testing such as biopsy. Continue Torsemide 40mg Daily for edema management Dose all meds for Cr Cl < 20 avoid IV contrast, NSAIDs or other nephrotoxins Trend renal function and electrolytes daily stable for discharge with close outpatient follow up Thank you Efraín Barillas DO
--- NOTE | 2019-08-13 13:02 | PN ---
Progress Note, Physician History of Present Illness: stable no new issues - Current Medication List Current Medications: Active Medications Acetaminophen (Tylenol -) 650 mg PO Q6H PRN PRN Reason: Fever Or Pain Calcium Carbonate (Os-Mauri 500mg -) 500 mg PO BID [facility] Last Admin: 08/13/19 10:04 Dose: 500 mg Cyclobenzaprine HCl (Cyclobenzaprine Hcl) 5 mg PO BID PRN PRN Reason: MUSCLE SPASMS Darbepoetin Nikolas (Aranesp -) 25 mcg SQ Q7D@1000 [facility] Last Admin: 08/07/19 18:57 Dose: 25 mcg Diphenhydramine HCl (Benadryl -) 25 mg PO Q6H PRN PRN Reason: FOR ITCHING Docusate Sodium (Colace -) 300 mg PO [facility] Last Admin: 08/12/19 21:09 Dose: Not Given Guaifenesin (Robitussin Dm -) 10 ml PO Q4H PRN PRN Reason: COUGH Insulin Aspart (Novolog Vial Sliding Scale -) 1 vial SQ [facility]; Protocol Last Admin: 08/13/19 12:08 Dose: 3 units Levothyroxine Sodium 50 mcg/ (Levothyroxine Sodium 12.5 mcg) 62.5 mcg PO DAILY@ 0700 [facility] Last Admin: 08/13/19 06:29 Dose: 62.5 mcg Metoprolol Succinate (Toprol Xl -) 25 mg PO DAILY [facility] Last Admin: 08/13/19 10:10 Dose: 25 mg Miscellaneous (Duragesic Patch Waste) 1 each [facility] PRN PRN PRN Reason: PAIN Ondansetron HCl (Zofran Injection) 4 mg IVPB Q6H PRN PRN Reason: NAUSEA Last Admin: 08/09/19 14:23 Dose: 4 mg Oxycodone HCl (Roxicodone -) 5 mg PO Q6H PRN PRN Reason: PAIN LEVEL 6-10 Last Admin: 08/11/19 15:13 Dose: 5 mg Pantoprazole Sodium (Protonix -) 40 mg PO DAILY [facility] Last Admin: 08/13/19 10:04 Dose: 40 mg Polyethylene Glycol (Miralax (For Daily Use) -) 17 gm PO BID [facility] Last Admin: 08/13/19 10:05 Dose: Not Given Senna (Senna -) 2 tab PO [facility] Last Admin: 08/12/19 21:09 Dose: Not Given Torsemide (Demadex -) 40 mg PO DAILY [facility] Last Admin: 08/13/19 10:05 Dose: 40 mg Triamcinolone Acetonide (Aristocort 0.1% Cream -) 1 applic TP BID [facility] Last Admin: 08/13/19 10:05 Dose: 1 applic - Objective Vital Signs: Vital Signs Temperature 99.5 F 08/13/19 11:33 Pulse Rate 105 H 08/13/19 11:33 Respiratory Rate 18 08/13/19 11:33 Blood Pressure 129/77 08/13/19 11:33 O2 Sat by Pulse Oximetry (%) 99 08/13/19 08:28 Constitutional: Yes: No Distress, Calm Cardiovascular: Yes: S1, S2 Respiratory: Yes: Regular, CTA Bilaterally Gastrointestinal: Yes: Normal Bowel Sounds, Soft Musculoskeletal: Yes: WNL Extremities: Yes: WNL Wound/Incision: Yes: Dressing Dry and Intact Neurological: Yes: Alert, Oriented Psychiatric: Yes: Alert Labs: CBC, BMP 08/11/19 07:45 08/12/19 08:28 INR, PTT INR Cancelled 08/02/19 20:30 Assessment/Plan Problem List - Problems (1) Acute exacerbation of CHF (congestive heart failure) Code(s): I50.9 - HEART FAILURE, UNSPECIFIED Qualifiers: Heart failure type: unspecified Qualified Code(s): I50.9 - Heart failure, unspecified (2) Anasarca Code(s): R60.1 - GENERALIZED EDEMA (3) Pleural effusion Code(s): J90 - PLEURAL EFFUSION, NOT ELSEWHERE CLASSIFIED (4) Acute renal failure Code(s): N17.9 - ACUTE KIDNEY FAILURE, UNSPECIFIED (5) Acute renal failure superimposed on chronic kidney disease Code(s): N17.9 - ACUTE KIDNEY FAILURE, UNSPECIFIED; N18.9 - CHRONIC KIDNEY DISEASE, UNSPECIFIED (6) Anemia Code(s): D64.9 - ANEMIA, UNSPECIFIED cellulitis of the leg wound on the leg plan continue current mgmt rest as per the team
[2019-08-13] MEDS: SENNOSIDES 8.6MG TABLET (FP) PO SCH (21:48)
[2019-08-13] MEDS: DOCUSATE SODIUM 100 MG CAPSULE (FP) PO SCH (23:53)
[2019-08-14] MEDS ORDERED: LEVOTHYROXINE NA 25 MCG TABLET (FP) ONE (05:31)
[2019-08-14] MEDS ORDERED: LEVOTHYROXINE NA 50 MCG TABLET (FP) ONE (05:31)
[2019-08-14] MEDS: INSULIN SLIDING SCALE (NOVOLOG) 1 VIAL SQ SCH ×4 (06:34→21:47)
[2019-08-14] MEDS: LEVOTHYROXINE PO SCH (06:34)
[2019-08-14] MEDS ORDERED: INSULIN (NOVOLOG) ASPART 100 UNITS/ML 10ML VIAL ONE ×2 (07:05→11:35)
[2019-08-14] MEDS ORDERED: PT OWN MED DRAWER 7, Y5N ONE (10:27)
[2019-08-14] MEDS: PANTOPRAZOLE 40 MG TABLET (FP) PO SCH (10:34)
[2019-08-14] MEDS: CALCIUM (OYSTER SHELL) 500 MG TABLET (FP) PO SCH ×2 (10:34→21:48)
[2019-08-14] MEDS: metoPROLOL SUCCINATE 25 MG TAB.SR.24H (FP) PO SCH (10:35)
[2019-08-14] MEDS: TORSEMIDE 20 MG TABLET (FP) PO SCH (10:35)
[2019-08-14] MEDS: POLYETHYLENE GLYCOL 3350 119 GM BTL PO SCH ×2 (10:35→21:48)
[2019-08-14] MEDS: TRIAMCINOLONE ACET 0.1% CREAM 15 GM TUBE TP SCH ×2 (10:41→21:48)
[2019-08-14] MEDS: Darbepoetin Alfa in Polysorbat 25 MCG/0.4 ML DISP.SYRIN SQ SCH (11:23)
--- NOTE | 2019-08-14 11:43 | PN ---
Progress Note (short form) - Note Progress Note: pt seen/ examined. awake/ comfortable no new issues . still waiting for Authorization Vital Signs Period Temp Pulse Resp BP Sys/Sibley Pulse Ox Last 24 Hr 97.8 F-99.0 F 80-85 18-20 121-136/67-78 99 Active Medications Acetaminophen (Tylenol -) 650 mg PO Q6H PRN PRN Reason: Fever Or Pain Calcium Carbonate (Os-Mauri 500mg -) 500 mg PO BID [facility] Last Admin: 08/13/19 10:04 Dose: 500 mg Cyclobenzaprine HCl (Cyclobenzaprine Hcl) 5 mg PO BID PRN PRN Reason: MUSCLE SPASMS Darbepoetin Nikolas (Aranesp -) 25 mcg SQ Q7D@1000 [facility] Last Admin: 08/07/19 18:57 Dose: 25 mcg Diphenhydramine HCl (Benadryl -) 25 mg PO Q6H PRN PRN Reason: FOR ITCHING Docusate Sodium (Colace -) 300 mg PO HS [facility] Last Admin: 08/12/19 21:09 Dose: Not Given Guaifenesin (Robitussin Dm -) 10 ml PO Q4H PRN PRN Reason: COUGH Insulin Aspart (Novolog Vial Sliding Scale -) 1 vial SQ [facility]; Protocol Last Admin: 08/13/19 06:24 Dose: 10 units Levothyroxine Sodium 50 mcg/ (Levothyroxine Sodium 12.5 mcg) 62.5 mcg PO DAILY@ 0700 [facility] Last Admin: 08/13/19 06:29 Dose: 62.5 mcg Metoprolol Succinate (Toprol Xl -) 25 mg PO DAILY [facility] Last Admin: 08/13/19 10:10 Dose: 25 mg Miscellaneous (Duragesic Patch Waste) 1 each MC PRN PRN PRN Reason: PAIN Ondansetron HCl (Zofran Injection) 4 mg IVPB Q6H PRN PRN Reason: NAUSEA Last Admin: 08/09/19 14:23 Dose: 4 mg Oxycodone HCl (Roxicodone -) 5 mg PO Q6H PRN PRN Reason: PAIN LEVEL 6-10 Last Admin: 08/11/19 15:13 Dose: 5 mg Pantoprazole Sodium (Protonix -) 40 mg PO DAILY [facility] Last Admin: 10/11/19 10:04 Dose: 40 mg Polyethylene Glycol (Miralax (For Daily Use) -) 17 gm PO BID [facility] Last Admin: 08/13/19 10:05 Dose: Not Given Senna (Senna -) 2 tab PO HS [facility] Last Admin: 08/12/19 21:09 Dose: Not Given Torsemide (Demadex -) 40 mg PO DAILY [facility] Last Admin: 08/13/19 10:05 Dose: 40 mg Triamcinolone Acetonide (Aristocort 0.1% Cream -) 1 applic TP BID [facility] Last Admin: 08/13/19 10:05 Dose: 1 applic CBC, BMP 08/11/19 07:45 08/12/19 08:28 Physical Exam Awake/ comfortable S1 S2 irregular lungs decreased abd-- soft tender lower back leg wound right -- dressing in place wound right leg decreased edema PLAN CHF systolic decompensation-- -- previous echo from April noted -- EF 35% -- no iv access --> dc lasix--> on Torsemide PO -- monitor output Cellulitis -- off iv antibiotics -- ID eval noted -- wound care renal failure -- acute on chronic --monitor labs -- off lasix --started Torsemide -- creatinine stable Back pain -- h/o breast CA -- c/o severe pain -- on Fentanyl patch -- PT eval repeat CT abd-- same stable continue present care awaiting Authorization from Insurance for STR Problem List - Problems (1) Back pain Code(s): M54.9 - DORSALGIA, UNSPECIFIED (2) Abdominal pain Code(s): R10.9 - UNSPECIFIED ABDOMINAL PAIN (3) Acute exacerbation of CHF (congestive heart failure) Code(s): I50.9 - HEART FAILURE, UNSPECIFIED Qualifiers: Heart failure type: unspecified Qualified Code(s): I50.9 - Heart failure, unspecified (4) Anasarca Code(s): R60.1 - GENERALIZED EDEMA (5) Pleural effusion Code(s): J90 - PLEURAL EFFUSION, NOT ELSEWHERE CLASSIFIED (6) Acute renal failure superimposed on chronic kidney disease Code(s): N17.9 - ACUTE KIDNEY FAILURE, UNSPECIFIED; N18.9 - CHRONIC KIDNEY DISEASE, UNSPECIFIED (7) Anemia Code(s): D64.9 - ANEMIA, UNSPECIFIED (8) Anemia in chronic kidney disease Code(s): N18.9 - CHRONIC KIDNEY DISEASE, UNSPECIFIED; D63.1 - ANEMIA IN CHRONIC KIDNEY DISEASE (9) Breast cancer Code(s): C50.919 - MALIGNANT NEOPLASM OF UNSP SITE OF UNSPECIFIED FEMALE BREAST (10) Cellulitis Code(s): L03.90 - CELLULITIS, UNSPECIFIED Qualifiers: Site of cellulitis: unspecified site Qualified Code(s): L03.90 - Cellulitis , unspecified (11) Diabetes type 1, uncontrolled Code(s): E10.65 - TYPE 1 DIABETES MELLITUS WITH HYPERGLYCEMIA (12) Diarrhea Code(s): R19.7 - DIARRHEA, UNSPECIFIED (13) Scleroderma Code(s): M34.9 - SYSTEMIC SCLEROSIS, UNSPECIFIED
--- NOTE | 2019-08-14 13:03 | PN ---
Progress Note (short form) - Note Progress Note: Breathing feels OK today. No acute events overnight. No CP. Some dry cough. Afebrile. Intake & Output 08/11/19 08/12/19 08/13/19 08/14/19 23:59 23:59 23:59 23:59 Intake Total 5799 238 6024 Balance 9618 244 5351 Weight 133 lb 3 oz Last Vital Signs Temp Pulse Resp BP Pulse Ox 98.3 F 81 20 121/74 99 08/14/19 10:28 08/14/19 10:28 08/14/19 10:28 08/14/19 10:28 08/13/19 21:00 Active Medications Acetaminophen (Tylenol -) 650 mg PO Q6H PRN PRN Reason: Fever Or Pain Calcium Carbonate (Os-Mauri 500mg -) 500 mg PO BID [facility] Last Admin: 08/14/19 10:34 Dose: 500 mg Cyclobenzaprine HCl (Cyclobenzaprine Hcl) 5 mg PO BID PRN PRN Reason: MUSCLE SPASMS Darbepoetin Nikolas (Aranesp -) 25 mcg SQ Q7D@1000 [facility] Last Admin: 08/14/19 11:23 Dose: 25 mcg Diphenhydramine HCl (Benadryl -) 25 mg PO Q6H PRN PRN Reason: FOR ITCHING Docusate Sodium (Colace -) 300 mg PO HS [facility] Last Admin: 08/13/19 23:53 Dose: Not Given Guaifenesin (Robitussin Dm -) 10 ml PO Q4H PRN PRN Reason: COUGH Insulin Aspart (Novolog Vial Sliding Scale -) 1 vial SQ [facility]; Protocol Last Admin: 08/14/19 11:55 Dose: 5 units Levothyroxine Sodium 50 mcg/ (Levothyroxine Sodium 12.5 mcg) 62.5 mcg PO DAILY@ 0700 [facility] Last Admin: 08/14/19 06:34 Dose: 62.5 mcg Metoprolol Succinate (Toprol Xl -) 25 mg PO DAILY [facility] Last Admin: 08/14/19 10:35 Dose: 25 mg Miscellaneous (Duragesic Patch Waste) 1 each MC PRN PRN PRN Reason: PAIN Ondansetron HCl (Zofran Injection) 4 mg IVPB Q6H PRN PRN Reason: NAUSEA Last Admin: 08/09/19 14:23 Dose: 4 mg Pantoprazole Sodium (Protonix -) 40 mg PO DAILY [facility] Last Admin: 08/14/19 10:34 Dose: 40 mg Polyethylene Glycol (Miralax (For Daily Use) -) 17 gm PO BID [facility] Last Admin: 08/14/19 10:35 Dose: Not Given Senna (Senna -) 2 tab PO HS [facility] Last Admin: 08/13/19 21:48 Dose: Not Given Torsemide (Demadex -) 40 mg PO DAILY [facility] Last Admin: 08/14/19 10:35 Dose: 40 mg Triamcinolone Acetonide (Aristocort 0.1% Cream -) 1 applic TP BID [facility] Last Admin: 08/14/19 10:41 Dose: Not Given Constitutional: Yes: NAD Eyes: Yes: Conjunctiva Clear, EOM Intact HENT: Yes: Atraumatic, Normocephalic Neck: Yes: Supple, Trachea Midline Cardiovascular: Yes: Regular Rate and Rhythm Respiratory: Yes: Diminished breath sounds at the bases, few scattered rhonchi ...Clubbing: No Gastrointestinal: Yes: Normal Bowel Sounds, Soft. No: Tenderness Edema: Yes Labs: Laboratory Results - last 24 hr 08/02/19 08/02/19 08/02/19 09:12 20:30 20:30 WBC Cancelled Corrected WBC (auto) Cancelled RBC Cancelled Hgb Cancelled Hct Cancelled MCV Cancelled MCH Cancelled MCHC Cancelled RDW Cancelled Plt Count Cancelled MPV Cancelled Absolute Neuts (auto) Cancelled Neutrophils % Cancelled Lymphocytes % Cancelled Monocytes % Cancelled Eosinophils % Cancelled Basophils % Cancelled Nucleated RBC % Cancelled Platelet Estimate Cancelled Platelet Comment Cancelled PT with INR Cancelled INR Cancelled PTT (Actin FS) Cancelled Sodium Potassium Chloride Carbon Dioxide Anion Gap BUN Creatinine Est GFR (CKD-EPI)AfAm Est GFR (CKD-EPI)NonAf POC Glucometer Random Glucose Lactic Acid Calcium Phosphorus Magnesium Iron TIBC Iron Saturation Unsaturated IBC Ferritin Total Bilirubin AST ALT Alkaline Phosphatase Creatine Kinase Troponin I B-Natriuretic Peptide Total Protein Albumin Lipase Urine Color Yellow Urine Appearance Clear Urine pH 7.0 D Ur Specific [place] 1.007 L Urine Protein Negative Urine Glucose (UA) Negative Urine Ketones Negative Urine Blood 2+ H Urine Nitrite Negative Urine Bilirubin Negative Urine Urobilinogen 0.2 Ur Leukocyte Esterase 2+ H Urine WBC (Auto) 34 Urine RBC (Auto) 45 Urine Casts (Auto) 17 U Epithel Cells (Auto) 12.4 Urine Bacteria (Auto) 13.2 ERICK Screen c-ANCA Proteinase 3 (PR3) p-ANCA Atypical p-ANCA Myeloperoxidase Ab Anti-Streptolysin Scrn 08/02/19 08/02/19 08/02/19 21:00 21:00 21:00 WBC Corrected WBC (auto) RBC Hgb Hct MCV MCH MCHC RDW Plt Count MPV Absolute Neuts (auto) Neutrophils % Lymphocytes % Monocytes % Eosinophils % Basophils % Nucleated RBC % Platelet Estimate Platelet Comment PT with INR INR PTT (Actin FS) Sodium 133 L Potassium 3.7 Chloride 94 L Carbon Dioxide 32 Anion Gap 8 BUN 32.1 H Creatinine 2.3 H Est GFR (CKD-EPI)AfAm 27.21 Est GFR (CKD-EPI)NonAf 23.48 POC Glucometer Random Glucose 60 L Lactic Acid 1.7 Calcium 8.3 L Phosphorus Magnesium Iron TIBC Iron Saturation Unsaturated IBC Ferritin Total Bilirubin 0.5 AST 17 ALT 10 L Alkaline Phosphatase 278 H Creatine Kinase 50 Troponin I < 0.02 B-Natriuretic Peptide 03399.5 H Total Protein 6.3 L Albumin 2.5 L Lipase 27 L Urine Color Urine Appearance Urine pH Ur Specific [place] Urine Protein Urine Glucose (UA) Urine Ketones Urine Blood Urine Nitrite Urine Bilirubin Urine Urobilinogen Ur Leukocyte Esterase Urine WBC (Auto) Urine RBC (Auto) Urine Casts (Auto) U Epithel Cells (Auto) Urine Bacteria (Auto) ERICK Screen c-ANCA Proteinase 3 (PR3) p-ANCA Atypical p-ANCA Myeloperoxidase Ab Anti-Streptolysin Scrn 08/02/19 08/03/19 08/03/19 21:00 04:48 13:39 WBC 4.3 Corrected WBC (auto) RBC 3.37 L Hgb 9.5 L Hct 29.1 L MCV 86.1 D MCH 28.3 MCHC 32.8 RDW 14.7 D Plt Count 280 D MPV 7.3 L Absolute Neuts (auto) 2.6 Neutrophils % 60.9 Lymphocytes % 22.6 Monocytes % 9.7 Eosinophils % 5.6 H Basophils % 1.2 Nucleated RBC % 0 Platelet Estimate Platelet Comment PT with INR INR PTT (Actin FS) Sodium Potassium Chloride Carbon Dioxide Anion Gap BUN Creatinine Est GFR (CKD-EPI)AfAm Est GFR (CKD-EPI)NonAf POC Glucometer 64 149 Random Glucose Lactic Acid Calcium Phosphorus Magnesium Iron TIBC Iron Saturation Unsaturated IBC Ferritin Total Bilirubin AST ALT Alkaline Phosphatase Creatine Kinase Troponin I B-Natriuretic Peptide Total Protein Albumin Lipase Urine Color Urine Appearance Urine pH Ur Specific [place] Urine Protein Urine Glucose (UA) Urine Ketones Urine Blood Urine Nitrite Urine Bilirubin Urine Urobilinogen Ur Leukocyte Esterase Urine WBC (Auto) Urine RBC (Auto) Urine Casts (Auto) U Epithel Cells (Auto) Urine Bacteria (Auto) ERICK Screen c-ANCA Proteinase 3 (PR3) p-ANCA Atypical p-ANCA Myeloperoxidase Ab Anti-Streptolysin Scrn 08/03/19 08/03/19 08/04/19 16:46 21:23 05:19 WBC Corrected WBC (auto) RBC Hgb Hct MCV MCH MCHC RDW Plt Count MPV Absolute Neuts (auto) Neutrophils % Lymphocytes % Monocytes % Eosinophils % Basophils % Nucleated RBC % Platelet Estimate Platelet Comment PT with INR INR PTT (Actin FS) Sodium Potassium Chloride Carbon Dioxide Anion Gap BUN Creatinine Est GFR (CKD-EPI)AfAm Est GFR (CKD-EPI)NonAf POC Glucometer 195 162 214 Random Glucose Lactic Acid Calcium Phosphorus Magnesium Iron TIBC Iron Saturation Unsaturated IBC Ferritin Total Bilirubin AST ALT Alkaline Phosphatase Creatine Kinase Troponin I B-Natriuretic Peptide Total Protein Albumin Lipase Urine Color Urine Appearance Urine pH Ur Specific [place] Urine Protein Urine Glucose (UA) Urine Ketones Urine Blood Urine Nitrite Urine Bilirubin Urine Urobilinogen Ur Leukocyte Esterase Urine WBC (Auto) Urine RBC (Auto) Urine Casts (Auto) U Epithel Cells (Auto) Urine Bacteria (Auto) ERICK Screen c-ANCA Proteinase 3 (PR3) p-ANCA Atypical p-ANCA Myeloperoxidase Ab Anti-Streptolysin Scrn 08/04/19 08/04/19 08/04/19 07:00 07:00 07:00 WBC 3.2 L Corrected WBC (auto) RBC 2.95 L Hgb 8.4 L Hct 26.2 L MCV 88.8 MCH 28.3 MCHC 31.9 L RDW 14.8 Plt Count 240 MPV 7.6 Absolute Neuts (auto) 2.0 Neutrophils % 61.9 Lymphocytes % 18.6 Monocytes % 11.9 H Eosinophils % 6.4 H Basophils % 1.2 Nucleated RBC % 0 Platelet Estimate Platelet Comment PT with INR INR PTT (Actin FS) Sodium 134 L Potassium 4.2 Chloride 94 L Carbon Dioxide 30 Anion Gap 11 BUN 37.3 H Creatinine 2.7 H Est GFR (CKD-EPI)AfAm 22.42 Est GFR (CKD-EPI)NonAf 19.34 POC Glucometer Random Glucose 217 H Lactic Acid Calcium 8.2 L Phosphorus 5.8 H Magnesium 1.8 Iron 75 TIBC 136 L Iron Saturation 55 H Unsaturated IBC 61 L Ferritin 450.9 H Total Bilirubin 0.6 AST 17 ALT 8 L Alkaline Phosphatase 243 H Creatine Kinase Troponin I B-Natriuretic Peptide Total Protein 5.4 L Albumin 2.2 L Lipase Urine Color Urine Appearance Urine pH Ur Specific [place] Urine Protein Urine Glucose (UA) Urine Ketones Urine Blood Urine Nitrite Urine Bilirubin Urine Urobilinogen Ur Leukocyte Esterase Urine WBC (Auto) Urine RBC (Auto) Urine Casts (Auto) U Epithel Cells (Auto) Urine Bacteria (Auto) ERICK Screen c-ANCA Proteinase 3 (PR3) p-ANCA Atypical p-ANCA Myeloperoxidase Ab Anti-Streptolysin Scrn 08/04/19 08/04/19 08/04/19 12:22 17:35 21:57 WBC Corrected WBC (auto) RBC Hgb Hct MCV MCH MCHC RDW Plt Count MPV Absolute Neuts (auto) Neutrophils % Lymphocytes % Monocytes % Eosinophils % Basophils % Nucleated RBC % Platelet Estimate Platelet Comment PT with INR INR PTT (Actin FS) Sodium Potassium Chloride Carbon Dioxide Anion Gap BUN Creatinine Est GFR (CKD-EPI)AfAm Est GFR (CKD-EPI)NonAf POC Glucometer 172 131 210 Random Glucose Lactic Acid Calcium Phosphorus Magnesium Iron TIBC Iron Saturation Unsaturated IBC Ferritin Total Bilirubin AST ALT Alkaline Phosphatase Creatine Kinase Troponin I B-Natriuretic Peptide Total Protein Albumin Lipase Urine Color Urine Appearance Urine pH Ur Specific [place] Urine Protein Urine Glucose (UA) Urine Ketones Urine Blood Urine Nitrite Urine Bilirubin Urine Urobilinogen Ur Leukocyte Esterase Urine WBC (Auto) Urine RBC (Auto) Urine Casts (Auto) U Epithel Cells (Auto) Urine Bacteria (Auto) ERICK Screen c-ANCA Proteinase 3 (PR3) p-ANCA Atypical p-ANCA Myeloperoxidase Ab Anti-Streptolysin Scrn 08/05/19 08/05/19 08/05/19 06:31 07:12 07:12 WBC 2.7 L Corrected WBC (auto) RBC 2.84 L Hgb 8.1 L Hct 24.4 L MCV 86.0 MCH 28.6 MCHC 33.3 RDW 14.5 Plt Count 227 MPV 7.5 Absolute Neuts (auto) 1.3 L Neutrophils % 47.8 D Lymphocytes % 27.8 D Monocytes % 13.7 H Eosinophils % 9.4 H Basophils % 1.3 Nucleated RBC % 0 Platelet Estimate Platelet Comment PT with INR INR PTT (Actin FS) Sodium 132 L Potassium 4.2 Chloride 91 L Carbon Dioxide 30 Anion Gap 11 BUN 36.1 H Creatinine 2.7 H Est GFR (CKD-EPI)AfAm 22.42 Est GFR (CKD-EPI)NonAf 19.34 POC Glucometer 145 Random Glucose 149 H Lactic Acid Calcium 8.1 L Phosphorus 5.9 H Magnesium 1.7 L Iron TIBC Iron Saturation Unsaturated IBC Ferritin Total Bilirubin 0.8 AST 16 ALT 7 L Alkaline Phosphatase 235 H Creatine Kinase Troponin I B-Natriuretic Peptide Total Protein 5.3 L Albumin 2.1 L Lipase Urine Color Urine Appearance Urine pH Ur Specific [place] Urine Protein Urine Glucose (UA) Urine Ketones Urine Blood Urine Nitrite Urine Bilirubin Urine Urobilinogen Ur Leukocyte Esterase Urine WBC (Auto) Urine RBC (Auto) Urine Casts (Auto) U Epithel Cells (Auto) Urine Bacteria (Auto) ERICK Screen c-ANCA Proteinase 3 (PR3) p-ANCA Atypical p-ANCA Myeloperoxidase Ab Anti-Streptolysin Scrn 08/05/19 08/05/19 08/05/19 12:53 16:16 20:14 WBC Corrected WBC (auto) RBC Hgb Hct MCV MCH MCHC RDW Plt Count MPV Absolute Neuts (auto) Neutrophils % Lymphocytes % Monocytes % Eosinophils % Basophils % Nucleated RBC % Platelet Estimate Platelet Comment PT with INR INR PTT (Actin FS) Sodium Potassium Chloride Carbon Dioxide Anion Gap BUN Creatinine Est GFR (CKD-EPI)AfAm Est GFR (CKD-EPI)NonAf POC Glucometer 219 225 263 Random Glucose Lactic Acid Calcium Phosphorus Magnesium Iron TIBC Iron Saturation Unsaturated IBC Ferritin Total Bilirubin AST ALT Alkaline Phosphatase Creatine Kinase Troponin I B-Natriuretic Peptide Total Protein Albumin Lipase Urine Color Urine Appearance Urine pH Ur Specific [place] Urine Protein Urine Glucose (UA) Urine Ketones Urine Blood Urine Nitrite Urine Bilirubin Urine Urobilinogen Ur Leukocyte Esterase Urine WBC (Auto) Urine RBC (Auto) Urine Casts (Auto) U Epithel Cells (Auto) Urine Bacteria (Auto) ERICK Screen c-ANCA Proteinase 3 (PR3) p-ANCA Atypical p-ANCA Myeloperoxidase Ab Anti-Streptolysin Scrn 08/06/19 08/06/19 08/06/19 05:39 06:44 07:08 WBC Corrected WBC (auto) RBC Hgb Hct MCV MCH MCHC RDW Plt Count MPV Absolute Neuts (auto) Neutrophils % Lymphocytes % Monocytes % Eosinophils % Basophils % Nucleated RBC % Platelet Estimate Platelet Comment PT with INR INR PTT (Actin FS) Sodium 133 L Potassium 4.2 Chloride 90 L Carbon Dioxide 32 Anion Gap 10 BUN 36.9 H Creatinine 2.9 H Est GFR (CKD-EPI)AfAm 20.56 Est GFR (CKD-EPI)NonAf 17.74 POC Glucometer 33 152 Random Glucose 131 H Lactic Acid Calcium 8.6 Phosphorus Magnesium Iron TIBC Iron Saturation Unsaturated IBC Ferritin Total Bilirubin AST ALT Alkaline Phosphatase Creatine Kinase Troponin I B-Natriuretic Peptide Total Protein Albumin Lipase Urine Color Urine Appearance Urine pH Ur Specific [place] Urine Protein Urine Glucose (UA) Urine Ketones Urine Blood Urine Nitrite Urine Bilirubin Urine Urobilinogen Ur Leukocyte Esterase Urine WBC (Auto) Urine RBC (Auto) Urine Casts (Auto) U Epithel Cells (Auto) Urine Bacteria (Auto) ERICK Screen c-ANCA Proteinase 3 (PR3) p-ANCA Atypical p-ANCA Myeloperoxidase Ab Anti-Streptolysin Scrn 08/06/19 08/06/19 08/06/19 07:08 11:37 17:43 WBC Corrected WBC (auto) RBC Hgb Hct MCV MCH MCHC RDW Plt Count MPV Absolute Neuts (auto) Neutrophils % Lymphocytes % Monocytes % Eosinophils % Basophils % Nucleated RBC % Platelet Estimate Platelet Comment PT with INR INR PTT (Actin FS) Sodium Potassium Chloride Carbon Dioxide Anion Gap BUN Creatinine Est GFR (CKD-EPI)AfAm Est GFR (CKD-EPI)NonAf POC Glucometer 222 284 Random Glucose Lactic Acid Calcium Phosphorus Magnesium Iron TIBC Iron Saturation Unsaturated IBC Ferritin Total Bilirubin AST ALT Alkaline Phosphatase Creatine Kinase Troponin I B-Natriuretic Peptide Total Protein Albumin Lipase Urine Color Urine Appearance Urine pH Ur Specific [place] Urine Protein Urine Glucose (UA) Urine Ketones Urine Blood Urine Nitrite Urine Bilirubin Urine Urobilinogen Ur Leukocyte Esterase Urine WBC (Auto) Urine RBC (Auto) Urine Casts (Auto) U Epithel Cells (Auto) Urine Bacteria (Auto) ERICK Screen Negative c-ANCA <1:20 Proteinase 3 (PR3) <3.5 p-ANCA <1:20 Atypical p-ANCA <1:20 Myeloperoxidase Ab <9.0 Anti-Streptolysin Scrn 08/06/19 08/07/19 08/07/19 21:42 01:19 06:38 WBC Corrected WBC (auto) RBC Hgb Hct MCV MCH MCHC RDW Plt Count MPV Absolute Neuts (auto) Neutrophils % Lymphocytes % Monocytes % Eosinophils % Basophils % Nucleated RBC % Platelet Estimate Platelet Comment PT with INR INR PTT (Actin FS) Sodium Potassium Chloride Carbon Dioxide Anion Gap BUN Creatinine Est GFR (CKD-EPI)AfAm Est GFR (CKD-EPI)NonAf POC Glucometer 308 234 212 Random Glucose Lactic Acid Calcium Phosphorus Magnesium Iron TIBC Iron Saturation Unsaturated IBC Ferritin Total Bilirubin AST ALT Alkaline Phosphatase Creatine Kinase Troponin I B-Natriuretic Peptide Total Protein Albumin Lipase Urine Color Urine Appearance Urine pH Ur Specific [place] Urine Protein Urine Glucose (UA) Urine Ketones Urine Blood Urine Nitrite Urine Bilirubin Urine Urobilinogen Ur Leukocyte Esterase Urine WBC (Auto) Urine RBC (Auto) Urine Casts (Auto) U Epithel Cells (Auto) Urine Bacteria (Auto) ERICK Screen c-ANCA Proteinase 3 (PR3) p-ANCA Atypical p-ANCA Myeloperoxidase Ab Anti-Streptolysin Scrn 08/07/19 08/07/19 08/07/19 07:45 07:45 11:13 WBC Corrected WBC (auto) RBC Hgb Hct MCV MCH MCHC RDW Plt Count MPV Absolute Neuts (auto) Neutrophils % Lymphocytes % Monocytes % Eosinophils % Basophils % Nucleated RBC % Platelet Estimate Platelet Comment PT with INR INR PTT (Actin FS) Sodium 131 L Potassium 4.9 Chloride 91 L Carbon Dioxide 33 H Anion Gap 7 L BUN 36.0 H Creatinine 3.1 H Est GFR (CKD-EPI)AfAm 18.97 Est GFR (CKD-EPI)NonAf 16.37 POC Glucometer 114 Random Glucose 193 H Lactic Acid Calcium 8.8 Phosphorus 6.1 H Magnesium 2.3 Iron TIBC Iron Saturation Unsaturated IBC Ferritin Total Bilirubin AST ALT Alkaline Phosphatase Creatine Kinase Troponin I B-Natriuretic Peptide Total Protein Albumin Lipase Urine Color Urine Appearance Urine pH Ur Specific [place] Urine Protein Urine Glucose (UA) Urine Ketones Urine Blood Urine Nitrite Urine Bilirubin Urine Urobilinogen Ur Leukocyte Esterase Urine WBC (Auto) Urine RBC (Auto) Urine Casts (Auto) U Epithel Cells (Auto) Urine Bacteria (Auto) ERICK Screen c-ANCA Proteinase 3 (PR3) p-ANCA Atypical p-ANCA Myeloperoxidase Ab Anti-Streptolysin Scrn 21.0 08/07/19 08/07/19 08/08/19 18:54 22:10 02:00 WBC Corrected WBC (auto) RBC Hgb Hct MCV MCH MCHC RDW Plt Count MPV Absolute Neuts (auto) Neutrophils % Lymphocytes % Monocytes % Eosinophils % Basophils % Nucleated RBC % Platelet Estimate Platelet Comment PT with INR INR PTT (Actin FS) Sodium Potassium Chloride Carbon Dioxide Anion Gap BUN Creatinine Est GFR (CKD-EPI)AfAm Est GFR (CKD-EPI)NonAf POC Glucometer 204 274 177 Random Glucose Lactic Acid Calcium Phosphorus Magnesium Iron TIBC Iron Saturation Unsaturated IBC Ferritin Total Bilirubin AST ALT Alkaline Phosphatase Creatine Kinase Troponin I B-Natriuretic Peptide Total Protein Albumin Lipase Urine Color Urine Appearance Urine pH Ur Specific [place] Urine Protein Urine Glucose (UA) Urine Ketones Urine Blood Urine Nitrite Urine Bilirubin Urine Urobilinogen Ur Leukocyte Esterase Urine WBC (Auto) Urine RBC (Auto) Urine Casts (Auto) U Epithel Cells (Auto) Urine Bacteria (Auto) ERICK Screen c-ANCA Proteinase 3 (PR3) p-ANCA Atypical p-ANCA Myeloperoxidase Ab Anti-Streptolysin Scrn 08/08/19 08/08/19 08/08/19 05:17 11:23 17:33 WBC Corrected WBC (auto) RBC Hgb Hct MCV MCH MCHC RDW Plt Count MPV Absolute Neuts (auto) Neutrophils % Lymphocytes % Monocytes % Eosinophils % Basophils % Nucleated RBC % Platelet Estimate Platelet Comment PT with INR INR PTT (Actin FS) Sodium Potassium Chloride Carbon Dioxide Anion Gap BUN Creatinine Est GFR (CKD-EPI)AfAm Est GFR (CKD-EPI)NonAf POC Glucometer 184 192 273 Random Glucose Lactic Acid Calcium Phosphorus Magnesium Iron TIBC Iron Saturation Unsaturated IBC Ferritin Total Bilirubin AST ALT Alkaline Phosphatase Creatine Kinase Troponin I B-Natriuretic Peptide Total Protein Albumin Lipase Urine Color Urine Appearance Urine pH Ur Specific [place] Urine Protein Urine Glucose (UA) Urine Ketones Urine Blood Urine Nitrite Urine Bilirubin Urine Urobilinogen Ur Leukocyte Esterase Urine WBC (Auto) Urine RBC (Auto) Urine Casts (Auto) U Epithel Cells (Auto) Urine Bacteria (Auto) ERICK Screen c-ANCA Proteinase 3 (PR3) p-ANCA Atypical p-ANCA Myeloperoxidase Ab Anti-Streptolysin Scrn 08/08/19 08/08/19 08/09/19 20:10 22:40 02:05 WBC Corrected WBC (auto) RBC Hgb Hct MCV MCH MCHC RDW Plt Count MPV Absolute Neuts (auto) Neutrophils % Lymphocytes % Monocytes % Eosinophils % Basophils % Nucleated RBC % Platelet Estimate Platelet Comment PT with INR INR PTT (Actin FS) Sodium Potassium Chloride Carbon Dioxide Anion Gap BUN Creatinine Est GFR (CKD-EPI)AfAm Est GFR (CKD-EPI)NonAf POC Glucometer 251 188 245 Random Glucose Lactic Acid Calcium Phosphorus Magnesium Iron TIBC Iron Saturation Unsaturated IBC Ferritin Total Bilirubin AST ALT Alkaline Phosphatase Creatine Kinase Troponin I B-Natriuretic Peptide Total Protein Albumin Lipase Urine Color Urine Appearance Urine pH Ur Specific [place] Urine Protein Urine Glucose (UA) Urine Ketones Urine Blood Urine Nitrite Urine Bilirubin Urine Urobilinogen Ur Leukocyte Esterase Urine WBC (Auto) Urine RBC (Auto) Urine Casts (Auto) U Epithel Cells (Auto) Urine Bacteria (Auto) ERICK Screen c-ANCA Proteinase 3 (PR3) p-ANCA Atypical p-ANCA Myeloperoxidase Ab Anti-Streptolysin Scrn 08/09/19 08/09/19 08/09/19 06:05 10:12 12:20 WBC Corrected WBC (auto) RBC Hgb Hct MCV MCH MCHC RDW Plt Count MPV Absolute Neuts (auto) Neutrophils % Lymphocytes % Monocytes % Eosinophils % Basophils % Nucleated RBC % Platelet Estimate Platelet Comment PT with INR INR PTT (Actin FS) Sodium Potassium Chloride Carbon Dioxide Anion Gap BUN Creatinine Est GFR (CKD-EPI)AfAm Est GFR (CKD-EPI)NonAf POC Glucometer 283 238 264 Random Glucose Lactic Acid Calcium Phosphorus Magnesium Iron TIBC Iron Saturation Unsaturated IBC Ferritin Total Bilirubin AST ALT Alkaline Phosphatase Creatine Kinase Troponin I B-Natriuretic Peptide Total Protein Albumin Lipase Urine Color Urine Appearance Urine pH Ur Specific [place] Urine Protein Urine Glucose (UA) Urine Ketones Urine Blood Urine Nitrite Urine Bilirubin Urine Urobilinogen Ur Leukocyte Esterase Urine WBC (Auto) Urine RBC (Auto) Urine Casts (Auto) U Epithel Cells (Auto) Urine Bacteria (Auto) ERICK Screen c-ANCA Proteinase 3 (PR3) p-ANCA Atypical p-ANCA Myeloperoxidase Ab Anti-Streptolysin Scrn 08/09/19 08/09/19 08/13/19 17:02 23:12 16:41 WBC Corrected WBC (auto) RBC Hgb Hct MCV MCH MCHC RDW Plt Count MPV Absolute Neuts (auto) Neutrophils % Lymphocytes % Monocytes % Eosinophils % Basophils % Nucleated RBC % Platelet Estimate Platelet Comment PT with INR INR PTT (Actin FS) Sodium Potassium Chloride Carbon Dioxide Anion Gap BUN Creatinine Est GFR (CKD-EPI)AfAm Est GFR (CKD-EPI)NonAf POC Glucometer 217 292 185 Random Glucose Lactic Acid Calcium Phosphorus Magnesium Iron TIBC Iron Saturation Unsaturated IBC Ferritin Total Bilirubin AST ALT Alkaline Phosphatase Creatine Kinase Troponin I B-Natriuretic Peptide Total Protein Albumin Lipase Urine Color Urine Appearance Urine pH Ur Specific [place] Urine Protein Urine Glucose (UA) Urine Ketones Urine Blood Urine Nitrite Urine Bilirubin Urine Urobilinogen Ur Leukocyte Esterase Urine WBC (Auto) Urine RBC (Auto) Urine Casts (Auto) U Epithel Cells (Auto) Urine Bacteria (Auto) ERICK Screen c-ANCA Proteinase 3 (PR3) p-ANCA Atypical p-ANCA Myeloperoxidase Ab Anti-Streptolysin Scrn 08/13/19 08/14/19 08/14/19 21:19 06:09 11:54 WBC Corrected WBC (auto) RBC Hgb Hct MCV MCH MCHC RDW Plt Count MPV Absolute Neuts (auto) Neutrophils % Lymphocytes % Monocytes % Eosinophils % Basophils % Nucleated RBC % Platelet Estimate Platelet Comment PT with INR INR PTT (Actin FS) Sodium Potassium Chloride Carbon Dioxide Anion Gap BUN Creatinine Est GFR (CKD-EPI)AfAm Est GFR (CKD-EPI)NonAf POC Glucometer 207 230 262 Random Glucose Lactic Acid Calcium Phosphorus Magnesium Iron TIBC Iron Saturation Unsaturated IBC Ferritin Total Bilirubin AST ALT Alkaline Phosphatase Creatine Kinase Troponin I B-Natriuretic Peptide Total Protein Albumin Lipase Urine Color Urine Appearance Urine pH Ur Specific [place] Urine Protein Urine Glucose (UA) Urine Ketones Urine Blood Urine Nitrite Urine Bilirubin Urine Urobilinogen Ur Leukocyte Esterase Urine WBC (Auto) Urine RBC (Auto) Urine Casts (Auto) U Epithel Cells (Auto) Urine Bacteria (Auto) ERICK Screen c-ANCA Proteinase 3 (PR3) p-ANCA Atypical p-ANCA Myeloperoxidase Ab Anti-Streptolysin Scrn Problem List - Problems (1) Anasarca Code(s): R60.1 - GENERALIZED EDEMA (2) Pleural effusion Code(s): J90 - PLEURAL EFFUSION, NOT ELSEWHERE CLASSIFIED Assessment/Plan Acute on Chronic Systolic Heart Failure Acute on Chronic Renal Failure Volume Overload/Anasarca improving Pleural Effusions likely from above: Transudative Hyponatremia Pulmonary HTN Scleroderma HTN DM Hyperlipidemia UTI treated Cellulitis Anemia - continue demadex per renal/cardiology - monitor urine output, creatinine - would defer further thoracetesis unless large effusions remain despite diuresis or if pt symptomatic - DVT prophylaxis Dr Villavicencio
--- NOTE | 2019-08-14 20:31 | PN ---
Progress Note (short form) - Note Progress Note: covering dr espinal ckd chf dianelys Current Medications Acetaminophen (Tylenol -) 650 mg PO Q6H PRN PRN Reason: Fever Or Pain Calcium Carbonate (Os-Mauri 500mg -) 500 mg PO BID [facility] Last Admin: 08/14/19 10:34 Dose: 500 mg Cyclobenzaprine HCl (Cyclobenzaprine Hcl) 5 mg PO BID PRN PRN Reason: MUSCLE SPASMS Darbepoetin Nikolas (Aranesp -) 25 mcg SQ Q7D@1000 [facility] Last Admin: 08/14/19 11:23 Dose: 25 mcg Diphenhydramine HCl (Benadryl -) 25 mg PO Q6H PRN PRN Reason: FOR ITCHING Docusate Sodium (Colace -) 300 mg PO [facility] Last Admin: 08/13/19 23:53 Dose: Not Given Guaifenesin (Robitussin Dm -) 10 ml PO Q4H PRN PRN Reason: COUGH Insulin Aspart (Novolog Vial Sliding Scale -) 1 vial SQ [facility]; Protocol Last Admin: 08/14/19 17:13 Dose: 4 units Levothyroxine Sodium 50 mcg/ (Levothyroxine Sodium 12.5 mcg) 62.5 mcg PO DAILY@ 0700 [facility] Last Admin: 08/14/19 06:34 Dose: 62.5 mcg Metoprolol Succinate (Toprol Xl -) 25 mg PO DAILY [facility] Last Admin: 08/14/19 10:35 Dose: 25 mg Miscellaneous (Duragesic Patch Waste) 1 each MC PRN PRN PRN Reason: PAIN Ondansetron HCl (Zofran Injection) 4 mg IVPB Q6H PRN PRN Reason: NAUSEA Last Admin: 08/09/19 14:23 Dose: 4 mg Pantoprazole Sodium (Protonix -) 40 mg PO DAILY [facility] Last Admin: 08/14/19 10:34 Dose: 40 mg Polyethylene Glycol (Miralax (For Daily Use) -) 17 gm PO BID [facility] Last Admin: 08/14/19 10:35 Dose: Not Given Senna (Senna -) 2 tab PO HS [facility] Last Admin: 08/13/19 21:48 Dose: Not Given Torsemide (Demadex -) 40 mg PO DAILY [facility] Last Admin: 08/14/19 10:35 Dose: 40 mg Triamcinolone Acetonide (Aristocort 0.1% Cream -) 1 applic TP BID [facility] Last Admin: 08/14/19 10:41 Dose: Not Given Last Vital Signs Temp Pulse Resp BP Pulse Ox 98.6 F 87 18 142/87 97 08/14/19 18:00 08/14/19 18:00 08/14/19 18:00 08/14/19 18:00 08/14/19 11:00 no lab today CBC, BMP 08/11/19 07:45 08/12/19 08:28
[2019-08-14] MEDS: DOCUSATE SODIUM 100 MG CAPSULE (FP) PO SCH (21:48)
[2019-08-14] MEDS: SENNOSIDES 8.6MG TABLET (FP) PO SCH (21:48)
[2019-08-15] MEDS ORDERED: LEVOTHYROXINE NA 50 MCG TABLET (FP) ONE (06:47)
[2019-08-15] MEDS ORDERED: LEVOTHYROXINE NA 25 MCG TABLET (FP) ONE (06:47)
[2019-08-15] MEDS: LEVOTHYROXINE PO SCH (06:49)
[2019-08-15] MEDS: INSULIN SLIDING SCALE (NOVOLOG) 1 VIAL SQ SCH ×4 (06:49→22:00)
--- NOTE | 2019-08-15 10:39 | PN ---
Progress Note (short form) - Note Progress Note: COMFORTABLE SITTING IN CHAIR NO NEW ISSUES Vital Signs Temp 98.3 F 08/15/19 09:52 Pulse 98 H 08/15/19 09:52 Resp 18 08/15/19 09:52 BP 131/77 08/15/19 09:52 Pulse Ox 98 08/14/19 21:00 Intake & Output 08/14/19 08/14/19 08/15/19 11:59 23:59 11:59 Intake Total 888 Balance 888 Weight 133 lb 3 oz 131 lb Intake: IV 0 IVSL 0 IVPB 0 Oral 888 Other: Voiding Method Diaper Incontinent # Unmeasured Voids Void 1 1 1 Bowel Movement Yes Yes No # Bowel Movements 1 1 Weight Measurement Method Standing Scale Standing Scale Active Medications Acetaminophen (Tylenol -) 650 mg PO Q6H PRN PRN Reason: Fever Or Pain Calcium Carbonate (Os-Mauri 500mg -) 500 mg PO BID [facility] Last Admin: 08/14/19 21:48 Dose: 500 mg Cyclobenzaprine HCl (Cyclobenzaprine Hcl) 5 mg PO BID PRN PRN Reason: MUSCLE SPASMS Darbepoetin Nikolas (Aranesp -) 25 mcg SQ Q7D@1000 [facility] Last Admin: 08/14/19 11:23 Dose: 25 mcg Diphenhydramine HCl (Benadryl -) 25 mg PO Q6H PRN PRN Reason: FOR ITCHING Docusate Sodium (Colace -) 300 mg PO HS [facility] Last Admin: 08/14/19 21:48 Dose: Not Given Guaifenesin (Robitussin Dm -) 10 ml PO Q4H PRN PRN Reason: COUGH Insulin Aspart (Novolog Vial Sliding Scale -) 1 vial SQ [facility]; Protocol Last Admin: 08/15/19 06:49 Dose: 2 units Levothyroxine Sodium 50 mcg/ (Levothyroxine Sodium 12.5 mcg) 62.5 mcg PO DAILY@ 0700 [facility] Last Admin: 08/15/19 06:49 Dose: 62.5 mcg Metoprolol Succinate (Toprol Xl -) 25 mg PO DAILY [facility] Last Admin: 08/14/19 10:35 Dose: 25 mg Miscellaneous (Duragesic Patch Waste) 1 each MC PRN PRN PRN Reason: PAIN Ondansetron HCl (Zofran Injection) 4 mg IVPB Q6H PRN PRN Reason: NAUSEA Last Admin: 08/09/19 14:23 Dose: 4 mg Pantoprazole Sodium (Protonix -) 40 mg PO DAILY [facility] Last Admin: 08/14/19 10:34 Dose: 40 mg Polyethylene Glycol (Miralax (For Daily Use) -) 17 gm PO BID [facility] Last Admin: 08/14/19 21:48 Dose: Not Given Senna (Senna -) 2 tab PO HS [facility] Last Admin: 08/14/19 21:48 Dose: Not Given Torsemide (Demadex -) 40 mg PO DAILY [facility] Last Admin: 08/14/19 10:35 Dose: 40 mg Triamcinolone Acetonide (Aristocort 0.1% Cream -) 1 applic TP BID [facility] Last Admin: 08/14/19 21:48 Dose: Not Given CBC, BMP 08/11/19 07:45 08/12/19 08:28 Physical Exam Awake/ comfortable S1 S2 irregular lungs decreased at bases abd-- soft leg wound right -- dressing in place wound right leg decreased edema PLAN CHF Cellulitis renal failure Back pain h/o breast CA stable continue present care awaiting Authorization from Insurance for STR Problem List - Problems (1) Back pain Code(s): M54.9 - DORSALGIA, UNSPECIFIED (2) Abdominal pain Code(s): R10.9 - UNSPECIFIED ABDOMINAL PAIN (3) Acute exacerbation of CHF (congestive heart failure) Code(s): I50.9 - HEART FAILURE, UNSPECIFIED Qualifiers: Heart failure type: unspecified Qualified Code(s): I50.9 - Heart failure, unspecified (4) Anasarca Code(s): R60.1 - GENERALIZED EDEMA (5) Pleural effusion Code(s): J90 - PLEURAL EFFUSION, NOT ELSEWHERE CLASSIFIED (6) Acute renal failure superimposed on chronic kidney disease Code(s): N17.9 - ACUTE KIDNEY FAILURE, UNSPECIFIED; N18.9 - CHRONIC KIDNEY DISEASE, UNSPECIFIED (7) Anemia Code(s): D64.9 - ANEMIA, UNSPECIFIED (8) Anemia in chronic kidney disease Code(s): N18.9 - CHRONIC KIDNEY DISEASE, UNSPECIFIED; D63.1 - ANEMIA IN CHRONIC KIDNEY DISEASE (9) Breast cancer Code(s): C50.919 - MALIGNANT NEOPLASM OF UNSP SITE OF UNSPECIFIED FEMALE BREAST (10) Cellulitis Code(s): L03.90 - CELLULITIS, UNSPECIFIED Qualifiers: Site of cellulitis: unspecified site Qualified Code(s): L03.90 - Cellulitis , unspecified (11) Diabetes type 1, uncontrolled Code(s): E10.65 - TYPE 1 DIABETES MELLITUS WITH HYPERGLYCEMIA (12) Diarrhea Code(s): R19.7 - DIARRHEA, UNSPECIFIED (13) Scleroderma Code(s): M34.9 - SYSTEMIC SCLEROSIS, UNSPECIFIED Problem List - Problems (1) Back pain Code(s): M54.9 - DORSALGIA, UNSPECIFIED (2) Abdominal pain Code(s): R10.9 - UNSPECIFIED ABDOMINAL PAIN (3) Acute exacerbation of CHF (congestive heart failure) Code(s): I50.9 - HEART FAILURE, UNSPECIFIED Qualifiers: Heart failure type: unspecified Qualified Code(s): I50.9 - Heart failure, unspecified (4) Anasarca Code(s): R60.1 - GENERALIZED EDEMA (5) Pleural effusion Code(s): J90 - PLEURAL EFFUSION, NOT ELSEWHERE CLASSIFIED (6) Acute renal failure superimposed on chronic kidney disease Code(s): N17.9 - ACUTE KIDNEY FAILURE, UNSPECIFIED; N18.9 - CHRONIC KIDNEY DISEASE, UNSPECIFIED (7) Anemia Code(s): D64.9 - ANEMIA, UNSPECIFIED (8) Anemia in chronic kidney disease Code(s): N18.9 - CHRONIC KIDNEY DISEASE, UNSPECIFIED; D63.1 - ANEMIA IN CHRONIC KIDNEY DISEASE (9) Breast cancer Code(s): C50.919 - MALIGNANT NEOPLASM OF UNSP SITE OF UNSPECIFIED FEMALE BREAST (10) Cellulitis Code(s): L03.90 - CELLULITIS, UNSPECIFIED Qualifiers: Site of cellulitis: unspecified site Qualified Code(s): L03.90 - Cellulitis , unspecified (11) Diabetes type 1, uncontrolled Code(s): E10.65 - TYPE 1 DIABETES MELLITUS WITH HYPERGLYCEMIA (12) Diarrhea Code(s): R19.7 - DIARRHEA, UNSPECIFIED (13) Scleroderma Code(s): M34.9 - SYSTEMIC SCLEROSIS, UNSPECIFIED
[2019-08-15] MEDS ORDERED: PT OWN MED DRAWER 7, Y5N ONE (11:04)
[2019-08-15] MEDS: CALCIUM (OYSTER SHELL) 500 MG TABLET (FP) PO SCH ×2 (11:05→22:02)
[2019-08-15] MEDS: metoPROLOL SUCCINATE 25 MG TAB.SR.24H (FP) PO SCH (11:05)
[2019-08-15] MEDS: PANTOPRAZOLE 40 MG TABLET (FP) PO SCH (11:05)
[2019-08-15] MEDS: POLYETHYLENE GLYCOL 3350 119 GM BTL PO SCH ×2 (11:06→22:00)
[2019-08-15] MEDS: TORSEMIDE 20 MG TABLET (FP) PO SCH (11:06)
[2019-08-15] MEDS: TRIAMCINOLONE ACET 0.1% CREAM 15 GM TUBE TP SCH ×2 (11:08→21:59)
--- NOTE | 2019-08-15 11:54 | PN ---
Progress Note (short form) - Note Progress Note: Breathing feels OK. No acute events overnight. No CP. Some dry cough. Afebrile. Intake & Output 08/12/19 08/13/19 08/14/19 08/15/19 23:59 23:59 23:59 23:59 Intake Total 850 1305 888 Balance 850 1305 888 Weight 133 lb 3 oz 131 lb Last Vital Signs Temp Pulse Resp BP Pulse Ox 98.3 F 98 H 18 131/77 98 08/15/19 09:52 08/15/19 09:52 08/15/19 09:52 08/15/19 09:52 08/14/19 21:00 Active Medications Acetaminophen (Tylenol -) 650 mg PO Q6H PRN PRN Reason: Fever Or Pain Calcium Carbonate (Os-Mauri 500mg -) 500 mg PO BID [facility] Last Admin: 08/15/19 11:05 Dose: 500 mg Cyclobenzaprine HCl (Cyclobenzaprine Hcl) 5 mg PO BID PRN PRN Reason: MUSCLE SPASMS Darbepoetin Nikolas (Aranesp -) 25 mcg SQ Q7D@1000 [facility] Last Admin: 08/14/19 11:23 Dose: 25 mcg Diphenhydramine HCl (Benadryl -) 25 mg PO Q6H PRN PRN Reason: FOR ITCHING Docusate Sodium (Colace -) 300 mg PO HS [facility] Last Admin: 08/14/19 21:48 Dose: Not Given Guaifenesin (Robitussin Dm -) 10 ml PO Q4H PRN PRN Reason: COUGH Insulin Aspart (Novolog Vial Sliding Scale -) 1 vial SQ [facility]; Protocol Last Admin: 08/15/19 06:49 Dose: 2 units Levothyroxine Sodium 50 mcg/ (Levothyroxine Sodium 12.5 mcg) 62.5 mcg PO DAILY@ 0700 [facility] Last Admin: 08/15/19 06:49 Dose: 62.5 mcg Metoprolol Succinate (Toprol Xl -) 25 mg PO DAILY [facility] Last Admin: 08/15/19 11:05 Dose: 25 mg Miscellaneous (Duragesic Patch Waste) 1 each MC PRN PRN PRN Reason: PAIN Ondansetron HCl (Zofran Injection) 4 mg IVPB Q6H PRN PRN Reason: NAUSEA Last Admin: 08/09/19 14:23 Dose: 4 mg Pantoprazole Sodium (Protonix -) 40 mg PO DAILY [facility] Last Admin: 08/15/19 11:05 Dose: 40 mg Polyethylene Glycol (Miralax (For Daily Use) -) 17 gm PO BID [facility] Last Admin: 08/15/19 11:06 Dose: Not Given Senna (Senna -) 2 tab PO HS [facility] Last Admin: 08/14/19 21:48 Dose: Not Given Torsemide (Demadex -) 40 mg PO DAILY [facility] Last Admin: 08/15/19 11:06 Dose: 40 mg Triamcinolone Acetonide (Aristocort 0.1% Cream -) 1 applic TP BID [facility] Last Admin: 08/15/19 11:08 Dose: Not Given Constitutional: Yes: NAD Eyes: Yes: Conjunctiva Clear, EOM Intact HENT: Yes: Atraumatic, Normocephalic Neck: Yes: Supple, Trachea Midline Cardiovascular: Yes: Regular Rate and Rhythm Respiratory: Yes: Diminished breath sounds at the bases, few scattered rhonchi ...Clubbing: No Gastrointestinal: Yes: Normal Bowel Sounds, Soft. No: Tenderness Edema: Yes Labs: Laboratory Results - last 24 hr 08/14/19 08/14/19 08/14/19 11:54 17:11 21:33 POC Glucometer 262 234 189 08/15/19 08/15/19 06:24 11:17 POC Glucometer 195 254 Problem List - Problems (1) Anasarca Code(s): R60.1 - GENERALIZED EDEMA (2) Pleural effusion Code(s): J90 - PLEURAL EFFUSION, NOT ELSEWHERE CLASSIFIED Assessment/Plan Acute on Chronic Systolic Heart Failure Acute on Chronic Renal Failure Volume Overload/Anasarca improving Pleural Effusions likely from above: Transudative Hyponatremia Pulmonary HTN Scleroderma HTN DM Hyperlipidemia UTI treated Cellulitis Anemia - continue demadex per renal/cardiology - monitor urine output, creatinine - would defer further thoracetesis unless large effusions remain despite diuresis or if pt symptomatic - DVT prophylaxis Dr Villavicencio
--- NOTE | 2019-08-15 14:03 | PN ---
Progress Note, Physician History of Present Illness: Pt alert, without complaints. Breathing well, on O2 NC, sitting in chair. Remains afebrile. Denies LE pain. - Current Medication List Current Medications: Active Medications Acetaminophen (Tylenol -) 650 mg PO Q6H PRN PRN Reason: Fever Or Pain Calcium Carbonate (Os-Mauri 500mg -) 500 mg PO BID [facility] Last Admin: 08/15/19 11:05 Dose: 500 mg Cyclobenzaprine HCl (Cyclobenzaprine Hcl) 5 mg PO BID PRN PRN Reason: MUSCLE SPASMS Darbepoetin Nikolas (Aranesp -) 25 mcg SQ Q7D@1000 [facility] Last Admin: 08/14/19 11:23 Dose: 25 mcg Diphenhydramine HCl (Benadryl -) 25 mg PO Q6H PRN PRN Reason: FOR ITCHING Docusate Sodium (Colace -) [address] [facility] Last Admin: 08/14/19 21:48 Dose: Not Given Guaifenesin (Robitussin Dm -) 10 ml PO Q4H PRN PRN Reason: COUGH Insulin Aspart (Novolog Vial Sliding Scale -) 1 vial SQ [facility]; Protocol Last Admin: 08/15/19 12:30 Dose: 6 units Levothyroxine Sodium 50 mcg/ (Levothyroxine Sodium 12.5 mcg) 62.5 mcg PO DAILY@ 0700 [facility] Last Admin: 08/15/19 06:49 Dose: 62.5 mcg Metoprolol Succinate (Toprol Xl -) 25 mg PO DAILY [facility] Last Admin: 08/15/19 11:05 Dose: 25 mg Miscellaneous (Duragesic Patch Waste) 1 each MC PRN PRN PRN Reason: PAIN Ondansetron HCl (Zofran Injection) 4 mg IVPB Q6H PRN PRN Reason: NAUSEA Last Admin: 08/09/19 14:23 Dose: 4 mg Pantoprazole Sodium (Protonix -) 40 mg PO DAILY [facility] Last Admin: 08/15/19 11:05 Dose: 40 mg Polyethylene Glycol (Miralax (For Daily Use) -) 17 gm PO BID [facility] Last Admin: 08/15/19 11:06 Dose: Not Given Senna (Senna -) [address] [facility] Last Admin: 08/14/19 21:48 Dose: Not Given Torsemide (Demadex -) 40 mg PO DAILY [facility] Last Admin: 08/15/19 11:06 Dose: 40 mg Triamcinolone Acetonide (Aristocort 0.1% Cream -) 1 applic TP BID [facility] Last Admin: 08/15/19 11:08 Dose: Not Given - Objective Vital Signs: Vital Signs Temperature 98.3 F 08/15/19 09:52 Pulse Rate 98 H 08/15/19 09:52 Respiratory Rate 18 08/15/19 09:52 Blood Pressure 131/77 08/15/19 09:52 O2 Sat by Pulse Oximetry (%) 98 08/14/19 21:00 Constitutional: Yes: No Distress, Calm Cardiovascular: Yes: Regular Rate and Rhythm Respiratory: Yes: Regular, On Nasal O2 Gastrointestinal: Yes: Normal Bowel Sounds, Soft Genitourinary: Yes: WNL Wound/Incision: Yes: Dressing Dry and Intact Labs: CBC, BMP 08/11/19 07:45 08/12/19 08:28 INR, PTT INR Cancelled 08/02/19 20:30 Problem List - Problems (1) Acute exacerbation of CHF (congestive heart failure) Code(s): I50.9 - HEART FAILURE, UNSPECIFIED Qualifiers: Heart failure type: unspecified Qualified Code(s): I50.9 - Heart failure, unspecified (2) Pleural effusion Code(s): J90 - PLEURAL EFFUSION, NOT ELSEWHERE CLASSIFIED (3) Acute renal failure superimposed on chronic kidney disease Code(s): N17.9 - ACUTE KIDNEY FAILURE, UNSPECIFIED; N18.9 - CHRONIC KIDNEY DISEASE, UNSPECIFIED (4) Anemia Code(s): D64.9 - ANEMIA, UNSPECIFIED (5) Cellulitis Code(s): L03.90 - CELLULITIS, UNSPECIFIED Qualifiers: Site of cellulitis: unspecified site Qualified Code(s): L03.90 - Cellulitis , unspecified Assessment/Plan - Cellulitis -- pt currently without LE pain/drainage -- monitor off of antibiotics
--- NOTE | 2019-08-15 19:02 | PN ---
Progress Note (short form) - Note Progress Note: covering dr espinal ckd chf dianelys Current Medications Acetaminophen (Tylenol -) 650 mg PO Q6H PRN PRN Reason: Fever Or Pain Calcium Carbonate (Os-Mauri 500mg -) 500 mg PO BID [facility] Last Admin: 08/14/19 10:34 Dose: 500 mg Cyclobenzaprine HCl (Cyclobenzaprine Hcl) 5 mg PO BID PRN PRN Reason: MUSCLE SPASMS Darbepoetin Nikolas (Aranesp -) 25 mcg SQ Q7D@1000 [facility] Last Admin: 08/14/19 11:23 Dose: 25 mcg Diphenhydramine HCl (Benadryl -) 25 mg PO Q6H PRN PRN Reason: FOR ITCHING Docusate Sodium (Colace -) 300 mg PO [facility] Last Admin: 08/13/19 23:53 Dose: Not Given Guaifenesin (Robitussin Dm -) 10 ml PO Q4H PRN PRN Reason: COUGH Insulin Aspart (Novolog Vial Sliding Scale -) 1 vial SQ [facility]; Protocol Last Admin: 08/14/19 17:13 Dose: 4 units Levothyroxine Sodium 50 mcg/ (Levothyroxine Sodium 12.5 mcg) 62.5 mcg PO DAILY@ 0700 [facility] Last Admin: 08/14/19 06:34 Dose: 62.5 mcg Metoprolol Succinate (Toprol Xl -) 25 mg PO DAILY [facility] Last Admin: 08/14/19 10:35 Dose: 25 mg Miscellaneous (Duragesic Patch Waste) 1 each [facility] PRN PRN PRN Reason: PAIN Ondansetron HCl (Zofran Injection) 4 mg IVPB Q6H PRN PRN Reason: NAUSEA Last Admin: 08/09/19 14:23 Dose: 4 mg Pantoprazole Sodium (Protonix -) 40 mg PO DAILY [facility] Last Admin: 08/14/19 10:34 Dose: 40 mg Polyethylene Glycol (Miralax (For Daily Use) -) 17 gm PO BID [facility] Last Admin: 08/14/19 10:35 Dose: Not Given Senna (Senna -) 2 tab PO HS [facility] Last Admin: 08/13/19 21:48 Dose: Not Given Torsemide (Demadex -) 40 mg PO DAILY [facility] Last Admin: 08/14/19 10:35 Dose: 40 mg Triamcinolone Acetonide (Aristocort 0.1% Cream -) 1 applic TP BID [facility] Last Admin: 08/14/19 10:41 Dose: Not Given Last Vital Signs Temp Pulse Resp BP Pulse Ox 98.6 F 87 18 142/87 97 08/14/19 18:00 08/14/19 18:00 08/14/19 18:00 08/14/19 18:00 08/14/19 11:00 no lab today CBC, BMP 08/11/19 07:45 08/12/19 08:28 IMP CKD stable Hyponatremia intake is good and she is not drinking a lot of water Plan- f/u labs in am
[2019-08-15] MEDS: DOCUSATE SODIUM 100 MG CAPSULE (FP) PO SCH (22:00)
[2019-08-15] MEDS: SENNOSIDES 8.6MG TABLET (FP) PO SCH (22:01)
[2019-08-16] MEDS ORDERED: LEVOTHYROXINE NA 25 MCG TABLET (FP) ONE (06:00)
[2019-08-16] MEDS ORDERED: LEVOTHYROXINE NA 50 MCG TABLET (FP) ONE (06:01)
[2019-08-16] MEDS: INSULIN SLIDING SCALE (NOVOLOG) 1 VIAL SQ SCH ×4 (06:50→22:22)
[2019-08-16] MEDS: LEVOTHYROXINE PO SCH (06:50)
[2019-08-16 09:10] LABS: ALBUMIN 2.2 g/dl (3.4-5.0); BILIRUBIN,TOTAL 0.5 mg/dL (0.2-1); BLOOD UREA NITROGEN 33.9 mg/dL (7-18); CREATININE 2.7 mg/dL (0.55-1.3); TOT PROT 5.6 g/dl (6.4-8.2)
--- NOTE | 2019-08-16 10:48 | PN ---
Progress Note (short form) - Note Progress Note: pt seen/ examined chart reviewed comfortable Vital Signs Temp 98.6 F 08/16/19 06:00 Pulse 87 08/16/19 06:00 Resp 18 08/16/19 06:00 BP 135/74 08/16/19 06:00 Pulse Ox 97 08/15/19 21:00 Intake & Output 08/15/19 08/15/19 08/16/19 11:59 23:59 11:59 Intake Total 800 50 Balance 800 50 Weight 131 lb Intake: Oral 800 50 Other: Voiding Method Incontinent Incontinent # Unmeasured Voids Void 1 1 Bowel Movement No No # Bowel Movements 1 Weight Measurement Method Standing Scale Active Medications Acetaminophen (Tylenol -) 650 mg PO Q6H PRN PRN Reason: Fever Or Pain Calcium Carbonate (Os-Mauri 500mg -) 500 mg PO BID [facility] Last Admin: 08/15/19 22:02 Dose: 500 mg Cyclobenzaprine HCl (Cyclobenzaprine Hcl) 5 mg PO BID PRN PRN Reason: MUSCLE SPASMS Darbepoetin Nikolas (Aranesp -) 25 mcg SQ Q7D@1000 [facility] Last Admin: 08/14/19 11:23 Dose: 25 mcg Diphenhydramine HCl (Benadryl -) 25 mg PO Q6H PRN PRN Reason: FOR ITCHING Docusate Sodium (Colace -) 300 mg PO HS [facility] Last Admin: 08/15/19 22:00 Dose: Not Given Guaifenesin (Robitussin Dm -) 10 ml PO Q4H PRN PRN Reason: COUGH Insulin Aspart (Novolog Vial Sliding Scale -) 1 vial SQ [facility]; Protocol Last Admin: 08/16/19 06:50 Dose: 8 units Levothyroxine Sodium 50 mcg/ (Levothyroxine Sodium 12.5 mcg) 62.5 mcg PO DAILY@ 0700 [facility] Last Admin: 08/16/19 06:50 Dose: 62.5 mcg Metoprolol Succinate (Toprol Xl -) 25 mg PO DAILY [facility] Last Admin: 08/15/19 11:05 Dose: 25 mg Miscellaneous (Duragesic Patch Waste) 1 each MC PRN PRN PRN Reason: PAIN Ondansetron HCl (Zofran Injection) 4 mg IVPB Q6H PRN PRN Reason: NAUSEA Last Admin: 08/09/19 14:23 Dose: 4 mg Pantoprazole Sodium (Protonix -) 40 mg PO DAILY [facility] Last Admin: 08/15/19 11:05 Dose: 40 mg Polyethylene Glycol (Miralax (For Daily Use) -) 17 gm PO BID [facility] Last Admin: 08/15/19 22:00 Dose: Not Given Senna (Senna -) 2 tab PO HS [facility] Last Admin: 08/15/19 22:01 Dose: Not Given Torsemide (Demadex -) 40 mg PO DAILY [facility] Last Admin: 08/15/19 11:06 Dose: 40 mg Triamcinolone Acetonide (Aristocort 0.1% Cream -) 1 applic TP BID [facility] Last Admin: 08/15/19 21:59 Dose: Not Given CBC,CMP WBC 3.9 K/mm3 (4.0-10.0) L 08/11/19 07:45 Corrected WBC (auto) Cancelled 08/02/19 20:30 RBC 3.14 M/mm3 (3.60-5.2) L 08/11/19 07:45 Hgb 8.9 GM/dL (10.7-15.3) L 08/11/19 07:45 Hct 27.5 % (32.4-45.2) L 08/11/19 07:45 MCV 87.6 fl (80-96) 08/11/19 07:45 MCH 28.2 pg (25.7-33.7) 08/11/19 07:45 MCHC 32.3 g/dl (32.0-36.0) 08/11/19 07:45 RDW 15.6 % (11.6-15.6) 08/11/19 07:45 Plt Count 255 K/MM3 (134-434) 08/11/19 07:45 MPV 7.3 fl (7.5-11.1) L 08/11/19 07:45 Absolute Neuts (auto) 2.7 K/mm3 (1.5-8.0) 08/10/19 07:30 Neutrophils % 62.7 % (42.8-82.8) D 08/10/19 07:30 Lymphocytes % 17.5 % (8-40) D 08/10/19 07:30 Monocytes % 9.3 % (3.8-10.2) 08/10/19 07:30 Eosinophils % 9.1 % (0-4.5) H 08/10/19 07:30 Basophils % 1.4 % (0-2.0) 08/10/19 07:30 Nucleated RBC % 0 % (0-0) 08/10/19 07:30 Platelet Estimate Cancelled 08/02/19 20:30 Platelet Comment Cancelled 08/02/19 20:30 Sodium 134 mmol/L (136-145) L 08/16/19 07:26 Potassium 4.0 mmol/L (3.5-5.1) 08/16/19 07:26 Chloride 94 mmol/L (98-107) L 08/16/19 07:26 Carbon Dioxide 32 mmol/L (21-32) 08/16/19 07:26 Anion Gap 8 MMOL/L (8-16) 08/16/19 07:26 BUN 33.9 mg/dL (7-18) H 08/16/19 07:26 Creatinine 2.7 mg/dL (0.55-1.3) H 08/16/19 07:26 Est GFR (CKD-EPI)AfAm 22.42 08/16/19 07:26 Est GFR (CKD-EPI)NonAf 19.34 08/16/19 07:26 POC Glucometer 312 UNITS (80-120) 08/16/19 06:49 Random Glucose 304 mg/dL (74-106) H 08/16/19 07:26 Lactic Acid 1.7 mmol/L (0.4-2.0) 08/02/19 21:00 Calcium 8.0 mg/dL (8.5-10.1) L 08/16/19 07:26 Phosphorus 5.2 mg/dL (2.5-4.9) H 08/11/19 07:45 Magnesium 1.8 mg/dL (1.8-2.4) 08/11/19 07:45 Iron 75 ug/dL (50-175) 08/04/19 07:00 TIBC 136 ug/dL (250-450) L 08/04/19 07:00 Iron Saturation 55 % (17.5-39) H 08/04/19 07:00 Unsaturated IBC 61 ug/dL (200-275) L 08/04/19 07:00 Ferritin 450.9 ng/ml (8-388) H 08/04/19 07:00 Total Bilirubin 0.5 mg/dL (0.2-1) 08/16/19 07:26 AST 17 U/L (15-37) 08/16/19 07:26 ALT 6 U/L (13-61) L 08/16/19 07:26 Alkaline Phosphatase 188 U/L (45-117) H 08/16/19 07:26 Creatine Kinase 50 U/L (26-192) 08/02/19 21:00 Troponin I < 0.02 ng/ml (0.00-0.05) 08/02/19 21:00 B-Natriuretic Peptide 47887.5 pg/ml (5-125) H 08/02/19 21:00 Total Protein 5.6 g/dl (6.4-8.2) L 08/16/19 07:26 Albumin 2.2 g/dl (3.4-5.0) L 08/16/19 07:26 Lipase 27 U/L (73-393) L 08/02/19 21:00 TSH 6.55 uIU/ml (0.358-3.74) H 08/09/19 07:15 Free T4 1.39 ng/dl (0.76-1.46) 08/09/19 07:15 Physical Exam Awake/ comfortable S1 S2 irregular lungs decreased at bases abd-- soft leg wound right -- dressing in place wound right leg decreased edema PLAN CHF Cellulitis renal failure Back pain h/o breast CA stable continue present care Still awaiting Authorization from Insurance for STR Problem List - Problems (1) Back pain Code(s): M54.9 - DORSALGIA, UNSPECIFIED (2) Abdominal pain Code(s): R10.9 - UNSPECIFIED ABDOMINAL PAIN (3) Acute exacerbation of CHF (congestive heart failure) Code(s): I50.9 - HEART FAILURE, UNSPECIFIED Qualifiers: Heart failure type: unspecified Qualified Code(s): I50.9 - Heart failure, unspecified (4) Anasarca Code(s): R60.1 - GENERALIZED EDEMA (5) Pleural effusion Code(s): J90 - PLEURAL EFFUSION, NOT ELSEWHERE CLASSIFIED (6) Acute renal failure superimposed on chronic kidney disease Code(s): N17.9 - ACUTE KIDNEY FAILURE, UNSPECIFIED; N18.9 - CHRONIC KIDNEY DISEASE, UNSPECIFIED (7) Anemia Code(s): D64.9 - ANEMIA, UNSPECIFIED (8) Anemia in chronic kidney disease Code(s): N18.9 - CHRONIC KIDNEY DISEASE, UNSPECIFIED; D63.1 - ANEMIA IN CHRONIC KIDNEY DISEASE (9) Breast cancer Code(s): C50.919 - MALIGNANT NEOPLASM OF UNSP SITE OF UNSPECIFIED FEMALE BREAST (10) Cellulitis Code(s): L03.90 - CELLULITIS, UNSPECIFIED Qualifiers: Site of cellulitis: unspecified site Qualified Code(s): L03.90 - Cellulitis , unspecified (11) Diabetes type 1, uncontrolled Code(s): E10.65 - TYPE 1 DIABETES MELLITUS WITH HYPERGLYCEMIA (12) Diarrhea Code(s): R19.7 - DIARRHEA, UNSPECIFIED (13) Scleroderma Code(s): M34.9 - SYSTEMIC SCLEROSIS, UNSPECIFIED
[2019-08-16] MEDS ORDERED: PT OWN MED DRAWER 7, Y5N ONE (11:07)
--- NOTE | 2019-08-16 11:10 | PN ---
Progress Note (short form) - Note Progress Note: Breathing feels OK. No acute events overnight. No CP. Afebrile. Intake & Output 08/13/19 08/14/19 08/15/19 08/16/19 23:59 23:59 23:59 23:59 Intake Total 1305 888 800 50 Balance 1305 888 800 50 Weight 133 lb 3 oz 131 lb Last Vital Signs Temp Pulse Resp BP Pulse Ox 98.6 F 87 18 135/74 97 08/16/19 06:00 08/16/19 06:00 08/16/19 06:00 08/16/19 06:00 08/15/19 21:00 Active Medications Acetaminophen (Tylenol -) 650 mg PO Q6H PRN PRN Reason: Fever Or Pain Calcium Carbonate (Os-Mauri 500mg -) 500 mg PO BID [facility] Last Admin: 08/15/19 22:02 Dose: 500 mg Cyclobenzaprine HCl (Cyclobenzaprine Hcl) 5 mg PO BID PRN PRN Reason: MUSCLE SPASMS Darbepoetin Nikolas (Aranesp -) 25 mcg SQ Q7D@1000 [facility] Last Admin: 08/14/19 11:23 Dose: 25 mcg Diphenhydramine HCl (Benadryl -) 25 mg PO Q6H PRN PRN Reason: FOR ITCHING Docusate Sodium (Colace -) 300 mg PO HS [facility] Last Admin: 08/15/19 22:00 Dose: Not Given Guaifenesin (Robitussin Dm -) 10 ml PO Q4H PRN PRN Reason: COUGH Insulin Aspart (Novolog Vial Sliding Scale -) 1 vial SQ [facility]; Protocol Last Admin: 08/16/19 06:50 Dose: 8 units Levothyroxine Sodium 50 mcg/ (Levothyroxine Sodium 12.5 mcg) 62.5 mcg PO DAILY@ 0700 [facility] Last Admin: 08/16/19 06:50 Dose: 62.5 mcg Metoprolol Succinate (Toprol Xl -) 25 mg PO DAILY [facility] Last Admin: 08/15/19 11:05 Dose: 25 mg Miscellaneous (Duragesic Patch Waste) 1 each [facility] PRN PRN PRN Reason: PAIN Ondansetron HCl (Zofran Injection) 4 mg IVPB Q6H PRN PRN Reason: NAUSEA Last Admin: 08/09/19 14:23 Dose: 4 mg Pantoprazole Sodium (Protonix -) 40 mg PO DAILY [facility] Last Admin: 08/15/19 11:05 Dose: 40 mg Polyethylene Glycol (Miralax (For Daily Use) -) 17 gm PO BID [facility] Last Admin: 08/15/19 22:00 Dose: Not Given Senna (Senna -) 2 tab PO HS [facility] Last Admin: 08/15/19 22:01 Dose: Not Given Torsemide (Demadex -) 40 mg PO DAILY [facility] Last Admin: 08/15/19 11:06 Dose: 40 mg Triamcinolone Acetonide (Aristocort 0.1% Cream -) 1 applic TP BID [facility] Last Admin: 08/15/19 21:59 Dose: Not Given Constitutional: Yes: NAD Eyes: Yes: Conjunctiva Clear, EOM Intact HENT: Yes: Atraumatic, Normocephalic Neck: Yes: Supple, Trachea Midline Cardiovascular: Yes: Regular Rate and Rhythm Respiratory: Yes: Diminished breath sounds at the bases, few scattered rhonchi ...Clubbing: No Gastrointestinal: Yes: Normal Bowel Sounds, Soft. No: Tenderness Edema: Yes Labs: Laboratory Results - last 24 hr 08/15/19 08/15/19 08/15/19 11:17 16:16 21:53 Sodium Potassium Chloride Carbon Dioxide Anion Gap BUN Creatinine Est GFR (CKD-EPI)AfAm Est GFR (CKD-EPI)NonAf POC Glucometer 254 332 181 Random Glucose Calcium Total Bilirubin AST ALT Alkaline Phosphatase Total Protein Albumin 08/16/19 08/16/19 06:49 07:26 Sodium 134 L Potassium 4.0 Chloride 94 L Carbon Dioxide 32 Anion Gap 8 BUN 33.9 H Creatinine 2.7 H Est GFR (CKD-EPI)AfAm 22.42 Est GFR (CKD-EPI)NonAf 19.34 POC Glucometer 312 Random Glucose 304 H Calcium 8.0 L Total Bilirubin 0.5 AST 17 ALT 6 L Alkaline Phosphatase 188 H Total Protein 5.6 L Albumin 2.2 L Problem List - Problems (1) Anasarca Code(s): R60.1 - GENERALIZED EDEMA (2) Pleural effusion Code(s): J90 - PLEURAL EFFUSION, NOT ELSEWHERE CLASSIFIED Assessment/Plan Acute on Chronic Systolic Heart Failure Acute on Chronic Renal Failure Volume Overload/Anasarca improving Pleural Effusions likely from above: Transudative Hyponatremia Pulmonary HTN Scleroderma HTN DM Hyperlipidemia UTI treated Cellulitis Anemia - continue demadex per renal/cardiology - monitor urine output, creatinine - would defer further thoracetesis unless large effusions remain despite diuresis or if pt symptomatic - DVT prophylaxis Dr Villavicencio
[2019-08-16] MEDS: CALCIUM (OYSTER SHELL) 500 MG TABLET (FP) PO SCH ×2 (11:12→22:23)
[2019-08-16] MEDS: POLYETHYLENE GLYCOL 3350 119 GM BTL PO SCH ×2 (11:12→22:32)
[2019-08-16] MEDS: metoPROLOL SUCCINATE 25 MG TAB.SR.24H (FP) PO SCH (11:12)
[2019-08-16] MEDS: TORSEMIDE 20 MG TABLET (FP) PO SCH (11:12)
[2019-08-16] MEDS: PANTOPRAZOLE 40 MG TABLET (FP) PO SCH (11:12)
[2019-08-16] MEDS: TRIAMCINOLONE ACET 0.1% CREAM 15 GM TUBE TP SCH ×2 (11:13→22:31)
--- NOTE | 2019-08-16 11:22 | PN ---
Progress Note (short form) - Note Progress Note: Renal follow up for GENESIS on CKD Seen and examined at the bedside awake and alert feels well denies any shortness of breath at rest no chest pain, abd pain, N/V/D making urine Vital Signs Temperature 98.6 F 08/16/19 06:00 Pulse Rate 87 08/16/19 06:00 Respiratory Rate 18 08/16/19 06:00 Blood Pressure 135/74 08/16/19 06:00 O2 Sat by Pulse Oximetry (%) 97 08/15/19 21:00 Intake & Output 08/13/19 08/14/19 08/15/19 08/16/19 23:59 23:59 23:59 23:59 Intake Total 1305 888 800 50 Balance 1305 888 800 50 Weight 60.413 kg 59.421 kg NAD on NC O2 RRR Dec BS mild abd distension + edema in LE CBC, BMP 08/11/19 07:45 08/16/19 07:26 Current Medications Acetaminophen (Tylenol -) 650 mg PO Q6H PRN PRN Reason: Fever Or Pain Calcium Carbonate (Os-Mauri 500mg -) 500 mg PO BID [facility] Last Admin: 08/16/19 11:12 Dose: 500 mg Cyclobenzaprine HCl (Cyclobenzaprine Hcl) 5 mg PO BID PRN PRN Reason: MUSCLE SPASMS Darbepoetin Nikolas (Aranesp -) 25 mcg SQ Q7D@1000 [facility] Last Admin: 08/14/19 11:23 Dose: 25 mcg Diphenhydramine HCl (Benadryl -) 25 mg PO Q6H PRN PRN Reason: FOR ITCHING Docusate Sodium (Colace -) 300 mg PO HS [facility] Last Admin: 08/15/19 22:00 Dose: Not Given Guaifenesin (Robitussin Dm -) 10 ml PO Q4H PRN PRN Reason: COUGH Insulin Aspart (Novolog Vial Sliding Scale -) 1 vial SQ [facility]; Protocol Last Admin: 08/16/19 06:50 Dose: 8 units Levothyroxine Sodium 50 mcg/ (Levothyroxine Sodium 12.5 mcg) 62.5 mcg PO DAILY@ 0700 [facility] Last Admin: 08/16/19 06:50 Dose: 62.5 mcg Metoprolol Succinate (Toprol Xl -) 25 mg PO DAILY [facility] Last Admin: 08/16/19 11:12 Dose: 25 mg Miscellaneous (Duragesic Patch Waste) 1 each [facility] PRN PRN PRN Reason: PAIN Ondansetron HCl (Zofran Injection) 4 mg IVPB Q6H PRN PRN Reason: NAUSEA Last Admin: 08/09/19 14:23 Dose: 4 mg Pantoprazole Sodium (Protonix -) 40 mg PO DAILY [facility] Last Admin: 08/16/19 11:12 Dose: 40 mg Polyethylene Glycol (Miralax (For Daily Use) -) 17 gm PO BID [facility] Last Admin: 08/16/19 11:12 Dose: 17 grams Senna (Senna -) 2 tab PO HS [facility] Last Admin: 08/15/19 22:01 Dose: Not Given Torsemide (Demadex -) 40 mg PO DAILY [facility] Last Admin: 08/16/19 11:12 Dose: 40 mg Triamcinolone Acetonide (Aristocort 0.1% Cream -) 1 applic TP BID [facility] Last Admin: 08/16/19 11:13 Dose: 1 applic 53 year old woman with history of CKD (baseline Cr 1.4-1.5), CHF, ETOH abuse, DM , Hypertension, hyperlipidemia, breast cancer s/p bilateral mastecotm, scleroderma and psoriasis presented from home with erythema in LE and noted to have Cr of 2.3. 1. Acute kidney injury in setting of fluid overload/CHF 2. CKD stage 3 3. Hx of CHF 4. Edema of LE 5. cellulitis of LE Renal function now improved Serologic studies have been negative thus far. Continue Torsemide 40mg Daily for edema management Dose all meds for Cr Cl < 20 avoid IV contrast, NSAIDs or other nephrotoxins Trend renal function and electrolytes daily stable for discharge with close outpatient follow up Thank you Efraín Barillas DO
--- NOTE | 2019-08-16 11:33 | PN ---
Progress Note, Physician History of Present Illness: no new issues stable - Current Medication List Current Medications: Active Medications Acetaminophen (Tylenol -) 650 mg PO Q6H PRN PRN Reason: Fever Or Pain Calcium Carbonate (Os-Mauri 500mg -) 500 mg PO BID [facility] Last Admin: 08/16/19 11:12 Dose: 500 mg Cyclobenzaprine HCl (Cyclobenzaprine Hcl) 5 mg PO BID PRN PRN Reason: MUSCLE SPASMS Darbepoetin Nikolas (Aranesp -) 25 mcg SQ Q7D@1000 [facility] Last Admin: 08/14/19 11:23 Dose: 25 mcg Diphenhydramine HCl (Benadryl -) 25 mg PO Q6H PRN PRN Reason: FOR ITCHING Docusate Sodium (Colace -) 300 mg PO [facility] Last Admin: 08/15/19 22:00 Dose: Not Given Guaifenesin (Robitussin Dm -) 10 ml PO Q4H PRN PRN Reason: COUGH Insulin Aspart (Novolog Vial Sliding Scale -) 1 vial SQ [facility]; Protocol Last Admin: 08/16/19 06:50 Dose: 8 units Levothyroxine Sodium 50 mcg/ (Levothyroxine Sodium 12.5 mcg) 62.5 mcg PO DAILY@ 0700 [facility] Last Admin: 08/16/19 06:50 Dose: 62.5 mcg Metoprolol Succinate (Toprol Xl -) 25 mg PO DAILY [facility] Last Admin: 08/16/19 11:12 Dose: 25 mg Miscellaneous (Duragesic Patch Waste) 1 each [facility] PRN PRN PRN Reason: PAIN Ondansetron HCl (Zofran Injection) 4 mg IVPB Q6H PRN PRN Reason: NAUSEA Last Admin: 08/09/19 14:23 Dose: 4 mg Pantoprazole Sodium (Protonix -) 40 mg PO DAILY [facility] Last Admin: 08/16/19 11:12 Dose: 40 mg Polyethylene Glycol (Miralax (For Daily Use) -) 17 gm PO BID [facility] Last Admin: 08/16/19 11:12 Dose: 17 grams Senna (Senna -) 2 tab PO [facility] Last Admin: 08/15/19 22:01 Dose: Not Given Torsemide (Demadex -) 40 mg PO DAILY [facility] Last Admin: 08/16/19 11:12 Dose: 40 mg Triamcinolone Acetonide (Aristocort 0.1% Cream -) 1 applic TP BID [facility] Last Admin: 08/16/19 11:13 Dose: 1 applic - Objective Vital Signs: Vital Signs Temperature 98.6 F 08/16/19 06:00 Pulse Rate 87 08/16/19 06:00 Respiratory Rate 18 08/16/19 06:00 Blood Pressure 135/74 08/16/19 06:00 O2 Sat by Pulse Oximetry (%) 97 08/15/19 21:00 Constitutional: Yes: No Distress, Calm Cardiovascular: Yes: S1, S2 Respiratory: Yes: Regular, CTA Bilaterally Gastrointestinal: Yes: Normal Bowel Sounds, Soft Musculoskeletal: Yes: WNL Extremities: Yes: Other Wound/Incision: Yes: Dressing Dry and Intact Neurological: Yes: Alert, Oriented Psychiatric: Yes: Alert, Oriented Labs: CBC, BMP 08/11/19 07:45 08/16/19 07:26 INR, PTT INR Cancelled 08/02/19 20:30 Assessment/Plan Problem List - Problems (1) Acute exacerbation of CHF (congestive heart failure) Code(s): I50.9 - HEART FAILURE, UNSPECIFIED Qualifiers: Heart failure type: unspecified Qualified Code(s): I50.9 - Heart failure, unspecified (2) Anasarca Code(s): R60.1 - GENERALIZED EDEMA (3) Pleural effusion Code(s): J90 - PLEURAL EFFUSION, NOT ELSEWHERE CLASSIFIED (4) Acute renal failure Code(s): N17.9 - ACUTE KIDNEY FAILURE, UNSPECIFIED (5) Acute renal failure superimposed on chronic kidney disease Code(s): N17.9 - ACUTE KIDNEY FAILURE, UNSPECIFIED; N18.9 - CHRONIC KIDNEY DISEASE, UNSPECIFIED (6) Anemia Code(s): D64.9 - ANEMIA, UNSPECIFIED cellulitis of the leg wound on the leg plan continue current mgmt rest as per the team
[2019-08-16] MEDS: DOCUSATE SODIUM 100 MG CAPSULE (FP) PO SCH (22:22)
[2019-08-16] MEDS: SENNOSIDES 8.6MG TABLET (FP) PO SCH (22:22)
[2019-08-17] MEDS ORDERED: LEVOTHYROXINE NA 25 MCG TABLET (FP) ONE (07:03)
[2019-08-17] MEDS ORDERED: LEVOTHYROXINE NA 50 MCG TABLET (FP) ONE (07:03)
[2019-08-17] MEDS: LEVOTHYROXINE PO SCH (07:04)
[2019-08-17] MEDS: INSULIN SLIDING SCALE (NOVOLOG) 1 VIAL SQ SCH ×4 (07:06→21:44)
[2019-08-17] MEDS ORDERED: INSULIN (NOVOLOG) ASPART 100 UNITS/ML 10ML VIAL ONE ×3 (07:13→21:26)
[2019-08-17] MEDS ORDERED: PT OWN MED DRAWER 7, Y5N ONE (10:00)
[2019-08-17] MEDS: PANTOPRAZOLE 40 MG TABLET (FP) PO SCH (11:15)
[2019-08-17] MEDS: metoPROLOL SUCCINATE 25 MG TAB.SR.24H (FP) PO SCH (11:15)
[2019-08-17] MEDS: CALCIUM (OYSTER SHELL) 500 MG TABLET (FP) PO SCH ×2 (11:15→21:44)
[2019-08-17] MEDS: TRIAMCINOLONE ACET 0.1% CREAM 15 GM TUBE TP SCH ×2 (11:16→21:43)
[2019-08-17] MEDS: TORSEMIDE 20 MG TABLET (FP) PO SCH (11:16)
[2019-08-17] MEDS: POLYETHYLENE GLYCOL 3350 119 GM BTL PO SCH ×2 (11:17→21:44)
--- NOTE | 2019-08-17 11:26 | PN ---
Progress Note (short form) - Note Progress Note: back pain better with pain meds feeling better walked with PT with walker Vital Signs - 24 hr 08/16/19 08/16/19 08/16/19 16:09 18:00 21:00 Temperature 98.8 F 99.2 F 98.5 F Pulse Rate 84 95 H 92 H Respiratory 24 H 20 20 Rate Blood Pressure 124/68 133/81 134/74 O2 Sat by Pulse 98 Oximetry (%) 08/17/19 08/17/19 06:00 10:06 Temperature 98.9 F 98.8 F Pulse Rate 85 86 Respiratory 20 20 Rate Blood Pressure 145/88 137/81 O2 Sat by Pulse Oximetry (%) Current Medications Generic Name Dose Route Start Last Admin Trade Name Freq PRN Reason Stop Dose Admin Acetaminophen 650 mg 08/03/19 04:16 Tylenol - PO Q6H PRN Fever Or Pain Calcium Carbonate 500 mg 08/03/19 10:00 08/17/19 11:15 Os-Mauri 500mg - PO 500 mg BID [facility] Administration Cyclobenzaprine HCl 5 mg 08/03/19 04:16 Cyclobenzaprine Hcl PO BID PRN MUSCLE SPASMS Darbepoetin Nikolas 25 mcg 08/07/19 10:00 08/14/19 11:23 Aranesp - SQ 25 mcg Q7D@1000 [facility] Administration Diphenhydramine HCl 25 mg 08/08/19 10:12 Benadryl - PO Q6H PRN FOR ITCHING Docusate Sodium 300 mg 08/03/19 22:00 08/16/19 22:22 Colace - PO Not Given HS [facility] Guaifenesin 10 ml 08/03/19 04:16 Robitussin Dm - PO Q4H PRN COUGH Insulin Aspart 1 vial 08/03/19 07:00 08/17/19 07:06 Novolog Vial Sliding Scale - SQ 6 units ACHS [facility] Administration Protocol Levothyroxine Sodium 50 mcg/ 62.5 mcg 08/03/19 07:00 08/17/19 07:04 Levothyroxine Sodium 12.5 mcg PO 62.5 mcg DAILY@0700 [facility] Administration Metoprolol Succinate 25 mg 08/03/19 10:00 08/17/19 11:15 Toprol Xl - PO 25 mg DAILY [facility] Administration Miscellaneous 1 each 08/04/19 12:20 Duragesic Patch Waste [facility] PRN PRN PAIN Ondansetron HCl 4 mg 08/09/19 13:12 08/09/19 14:23 Zofran Injection IVPB 4 mg Q6H PRN Administration NAUSEA Pantoprazole Sodium 40 mg 08/10/19 15:15 08/17/19 11:15 Protonix - PO 40 mg DAILY [facility] Administration Polyethylene Glycol 17 gm 08/04/19 12:30 08/17/19 11:17 Miralax (For Daily Use) - PO Not Given BID [facility] Senna 2 tab 08/03/19 22:00 08/16/19 22:22 Senna - PO Not Given HS [facility] Torsemide 40 mg 08/10/19 13:45 08/17/19 11:16 Demadex - PO 40 mg DAILY [facility] Administration Triamcinolone Acetonide 1 applic 08/03/19 10:00 08/17/19 11:16 Aristocort 0.1% Cream - TP Not Given BID [facility] Laboratory Results - last 24 hr 08/16/19 08/16/19 08/16/19 11:48 17:14 21:33 POC Glucometer 337 161 152 08/17/19 06:33 POC Glucometer 354 Laboratory Last Values WBC 3.9 K/mm3 (4.0-10.0) L 08/11/19 07:45 Corrected WBC (auto) Cancelled 08/02/19 20:30 RBC 3.14 M/mm3 (3.60-5.2) L 08/11/19 07:45 Hgb 8.9 GM/dL (10.7-15.3) L 08/11/19 07:45 Hct 27.5 % (32.4-45.2) L 08/11/19 07:45 MCV 87.6 fl (80-96) 08/11/19 07:45 MCH 28.2 pg (25.7-33.7) 08/11/19 07:45 MCHC 32.3 g/dl (32.0-36.0) 08/11/19 07:45 RDW 15.6 % (11.6-15.6) 08/11/19 07:45 Plt Count 255 K/MM3 (134-434) 08/11/19 07:45 MPV 7.3 fl (7.5-11.1) L 08/11/19 07:45 Absolute Neuts (auto) 2.7 K/mm3 (1.5-8.0) 08/10/19 07:30 Neutrophils % 62.7 % (42.8-82.8) D 08/10/19 07:30 Lymphocytes % 17.5 % (8-40) D 08/10/19 07:30 Monocytes % 9.3 % (3.8-10.2) 08/10/19 07:30 Eosinophils % 9.1 % (0-4.5) H 08/10/19 07:30 Basophils % 1.4 % (0-2.0) 08/10/19 07:30 Nucleated RBC % 0 % (0-0) 08/10/19 07:30 Platelet Estimate Cancelled 08/02/19 20:30 Platelet Comment Cancelled 08/02/19 20:30 PT with INR Cancelled 08/02/19 20:30 INR Cancelled 08/02/19 20:30 PTT (Actin FS) Cancelled 08/02/19 20:30 Sodium 134 mmol/L (136-145) L 08/16/19 07:26 Potassium 4.0 mmol/L (3.5-5.1) 08/16/19 07:26 Chloride 94 mmol/L (98-107) L 08/16/19 07:26 Carbon Dioxide 32 mmol/L (21-32) 08/16/19 07:26 Anion Gap 8 MMOL/L (8-16) 08/16/19 07:26 BUN 33.9 mg/dL (7-18) H 08/16/19 07:26 Creatinine 2.7 mg/dL (0.55-1.3) H 08/16/19 07:26 Est GFR (CKD-EPI)AfAm 22.42 08/16/19 07:26 Est GFR (CKD-EPI)NonAf 19.34 08/16/19 07:26 POC Glucometer 354 UNITS (80-120) 08/17/19 06:33 Random Glucose 304 mg/dL (74-106) H 08/16/19 07:26 Lactic Acid 1.7 mmol/L (0.4-2.0) 08/02/19 21:00 Calcium 8.0 mg/dL (8.5-10.1) L 08/16/19 07:26 Phosphorus 5.2 mg/dL (2.5-4.9) H 08/11/19 07:45 Magnesium 1.8 mg/dL (1.8-2.4) 08/11/19 07:45 Iron 75 ug/dL (50-175) 08/04/19 07:00 TIBC 136 ug/dL (250-450) L 08/04/19 07:00 Iron Saturation 55 % (17.5-39) H 08/04/19 07:00 Unsaturated IBC 61 ug/dL (200-275) L 08/04/19 07:00 Ferritin 450.9 ng/ml (8-388) H 08/04/19 07:00 Total Bilirubin 0.5 mg/dL (0.2-1) 08/16/19 07:26 AST 17 U/L (15-37) 08/16/19 07:26 ALT 6 U/L (13-61) L 08/16/19 07:26 Alkaline Phosphatase 188 U/L (45-117) H 08/16/19 07:26 Creatine Kinase 50 U/L (26-192) 08/02/19 21:00 Troponin I < 0.02 ng/ml (0.00-0.05) 08/02/19 21:00 B-Natriuretic Peptide 60198.5 pg/ml (5-125) H 08/02/19 21:00 Total Protein 5.6 g/dl (6.4-8.2) L 08/16/19 07:26 Albumin 2.2 g/dl (3.4-5.0) L 08/16/19 07:26 Lipase 27 U/L (73-393) L 08/02/19 21:00 TSH 6.55 uIU/ml (0.358-3.74) H 08/09/19 07:15 Free T4 1.39 ng/dl (0.76-1.46) 08/09/19 07:15 Urine Color Yellow 08/02/19 09:12 Urine Appearance Clear 08/02/19 09:12 Urine pH 7.0 (5.0-8.0) D 08/02/19 09:12 Ur Specific [place] 1.007 (1.010-1.035) L 08/02/19 09:12 Urine Protein Negative (NEGATIVE) 08/02/19 09:12 Urine Glucose (UA) Negative (NEGATIVE) 08/02/19 09:12 Urine Ketones Negative (NEGATIVE) 08/02/19 09:12 Urine Blood 2+ (NEGATIVE) H 08/02/19 09:12 Urine Nitrite Negative (NEGATIVE) 08/02/19 09:12 Urine Bilirubin Negative (NEGATIVE) 08/02/19 09:12 Urine Urobilinogen 0.2 mg/dL (0.2-1.0) 08/02/19 09:12 Ur Leukocyte Esterase 2+ (NEGATIVE) H 08/02/19 09:12 Urine WBC (Auto) 34 /hpf (0-5) 08/02/19 09:12 Urine RBC (Auto) 45 /hpf (0-4) 08/02/19 09:12 Urine Casts (Auto) 17 /lpf (0-8) 08/02/19 09:12 U Epithel Cells (Auto) 12.4 /HPF (0-5/HPF) 08/02/19 09:12 Urine Bacteria (Auto) 13.2 /hpf (NEGATIVE) 08/02/19 09:12 ERICK Screen Negative (.) 08/06/19 07:08 c-ANCA <1:20 titer (Neg:<1:20) 08/06/19 07:08 Proteinase 3 (PR3) <3.5 U/mL (0.0-3.5) 08/06/19 07:08 p-ANCA <1:20 titer (Neg:<1:20) 08/06/19 07:08 Atypical p-ANCA <1:20 titer (Neg:<1:20) 08/06/19 07:08 Myeloperoxidase Ab <9.0 U/mL (0.0-9.0) 08/06/19 07:08 Anti-Streptolysin Scrn 21.0 IU/mL (0.0-200.0) 08/07/19 07:45 MRI- LS spine noted CT abd /pelvis repeated culture --noted S1 S2 irregular lungs decreased abd-- anasarca+erythema abd wall,, tender, multiple psoriatic lesions on abd and legs, decreased edema to anterior abdomen tender lower back leg wound right -- dressing in place wound right leg decreased edema= PLAN CHF systolic decompensation-- -- previous echo from April noted -- EF 35% -- no iv access --> dc lasix--> tolerating Torsemide PO -- monitor output Cellulitis -- off iv antibiotics -- ID eval noted -- wound care renal failure -- acute on chronic-->creatinine better at 2.7 --monitor labs -- off lasix --continue Torsemide -- creatinine stable Back pain -- h/o breast CA -- c/o severe pain -- on Fentanyl patch -- PT eval repeat CT abd-- same dc planning to rehab -->awaiting authorization Problem List - Problems (1) Acute exacerbation of CHF (congestive heart failure) Code(s): I50.9 - HEART FAILURE, UNSPECIFIED Qualifiers: Heart failure type: unspecified Qualified Code(s): I50.9 - Heart failure, unspecified (2) Anasarca Code(s): R60.1 - GENERALIZED EDEMA (3) Pleural effusion Code(s): J90 - PLEURAL EFFUSION, NOT ELSEWHERE CLASSIFIED (4) Acute renal failure Code(s): N17.9 - ACUTE KIDNEY FAILURE, UNSPECIFIED (5) Acute renal failure superimposed on chronic kidney disease Code(s): N17.9 - ACUTE KIDNEY FAILURE, UNSPECIFIED; N18.9 - CHRONIC KIDNEY DISEASE, UNSPECIFIED (6) Anemia Code(s): D64.9 - ANEMIA, UNSPECIFIED
--- NOTE | 2019-08-17 12:14 | PN ---
Progress Note (short form) - Note Progress Note: Breathing feels OK. No acute events overnight. No CP. Afebrile. Intake & Output 08/14/19 08/15/19 08/16/19 08/17/19 23:59 23:59 23:59 23:59 Intake Total 888 800 300 100 Output Total 2 Balance 888 800 298 100 Weight 133 lb 3 oz 131 lb 127 lb 11.2 oz Last Vital Signs Temp Pulse Resp BP Pulse Ox 98.8 F 86 20 137/81 98 08/17/19 10:06 08/17/19 10:06 08/17/19 10:06 08/17/19 10:06 08/16/19 21:00 Active Medications Acetaminophen (Tylenol -) 650 mg PO Q6H PRN PRN Reason: Fever Or Pain Calcium Carbonate (Os-Mauri 500mg -) 500 mg PO BID [facility] Last Admin: 08/17/19 11:15 Dose: 500 mg Cyclobenzaprine HCl (Cyclobenzaprine Hcl) 5 mg PO BID PRN PRN Reason: MUSCLE SPASMS Darbepoetin Nikolas (Aranesp -) 25 mcg SQ Q7D@1000 [facility] Last Admin: 08/14/19 11:23 Dose: 25 mcg Diphenhydramine HCl (Benadryl -) 25 mg PO Q6H PRN PRN Reason: FOR ITCHING Docusate Sodium (Colace -) 300 mg PO HS [facility] Last Admin: 08/16/19 22:22 Dose: Not Given Guaifenesin (Robitussin Dm -) 10 ml PO Q4H PRN PRN Reason: COUGH Insulin Aspart (Novolog Vial Sliding Scale -) 1 vial SQ [facility]; Protocol Last Admin: 08/17/19 11:32 Dose: 10 units Levothyroxine Sodium 50 mcg/ (Levothyroxine Sodium 12.5 mcg) 62.5 mcg PO DAILY@ 0700 [facility] Last Admin: 08/17/19 07:04 Dose: 62.5 mcg Metoprolol Succinate (Toprol Xl -) 25 mg PO DAILY [facility] Last Admin: 08/17/19 11:15 Dose: 25 mg Miscellaneous (Duragesic Patch Waste) 1 each [facility] PRN PRN PRN Reason: PAIN Ondansetron HCl (Zofran Injection) 4 mg IVPB Q6H PRN PRN Reason: NAUSEA Last Admin: 08/09/19 14:23 Dose: 4 mg Pantoprazole Sodium (Protonix -) 40 mg PO DAILY [facility] Last Admin: 08/17/19 11:15 Dose: 40 mg Polyethylene Glycol (Miralax (For Daily Use) -) 17 gm PO BID [facility] Last Admin: 08/17/19 11:17 Dose: Not Given Senna (Senna -) 2 tab PO HS [facility] Last Admin: 08/16/19 22:22 Dose: Not Given Torsemide (Demadex -) 40 mg PO DAILY [facility] Last Admin: 08/17/19 11:16 Dose: 40 mg Triamcinolone Acetonide (Aristocort 0.1% Cream -) 1 applic TP BID [facility] Last Admin: 08/17/19 11:16 Dose: Not Given Constitutional: Yes: NAD Eyes: Yes: Conjunctiva Clear, EOM Intact HENT: Yes: Atraumatic, Normocephalic Neck: Yes: Supple, Trachea Midline Cardiovascular: Yes: Regular Rate and Rhythm Respiratory: Yes: Diminished breath sounds at the bases, few scattered rhonchi ...Clubbing: No Gastrointestinal: Yes: Normal Bowel Sounds, Soft. No: Tenderness Edema: Yes Labs: Laboratory Results - last 24 hr 08/16/19 08/16/19 08/17/19 17:14 21:33 06:33 POC Glucometer 161 152 354 08/17/19 11:29 POC Glucometer 364 Problem List - Problems (1) Anasarca Code(s): R60.1 - GENERALIZED EDEMA (2) Pleural effusion Code(s): J90 - PLEURAL EFFUSION, NOT ELSEWHERE CLASSIFIED Assessment/Plan Acute on Chronic Systolic Heart Failure Acute on Chronic Renal Failure Volume Overload/Anasarca improving Pleural Effusions likely from above: Transudative Hyponatremia Pulmonary HTN Scleroderma HTN DM Hyperlipidemia UTI treated Cellulitis Anemia - continue demadex per renal/cardiology - monitor urine output, creatinine - No need for thoracetesis - DVT prophylaxis - DC planning Dr Villavicencio
--- NOTE | 2019-08-17 12:15 | PN ---
Progress Note, Physician History of Present Illness: stable no new issues - Current Medication List Current Medications: Active Medications Acetaminophen (Tylenol -) 650 mg PO Q6H PRN PRN Reason: Fever Or Pain Calcium Carbonate (Os-Mauri 500mg -) 500 mg PO BID [facility] Last Admin: 08/17/19 11:15 Dose: 500 mg Cyclobenzaprine HCl (Cyclobenzaprine Hcl) 5 mg PO BID PRN PRN Reason: MUSCLE SPASMS Darbepoetin Nikolas (Aranesp -) 25 mcg SQ Q7D@1000 [facility] Last Admin: 08/14/19 11:23 Dose: 25 mcg Diphenhydramine HCl (Benadryl -) 25 mg PO Q6H PRN PRN Reason: FOR ITCHING Docusate Sodium (Colace -) 300 mg PO [facility] Last Admin: 08/16/19 22:22 Dose: Not Given Guaifenesin (Robitussin Dm -) 10 ml PO Q4H PRN PRN Reason: COUGH Insulin Aspart (Novolog Vial Sliding Scale -) 1 vial SQ [facility]; Protocol Last Admin: 08/17/19 11:32 Dose: 10 units Levothyroxine Sodium 50 mcg/ (Levothyroxine Sodium 12.5 mcg) 62.5 mcg PO DAILY@ 0700 [facility] Last Admin: 08/17/19 07:04 Dose: 62.5 mcg Metoprolol Succinate (Toprol Xl -) 25 mg PO DAILY [facility] Last Admin: 08/17/19 11:15 Dose: 25 mg Miscellaneous (Duragesic Patch Waste) 1 each [facility] PRN PRN PRN Reason: PAIN Ondansetron HCl (Zofran Injection) 4 mg IVPB Q6H PRN PRN Reason: NAUSEA Last Admin: 08/09/19 14:23 Dose: 4 mg Pantoprazole Sodium (Protonix -) 40 mg PO DAILY [facility] Last Admin: 08/17/19 11:15 Dose: 40 mg Polyethylene Glycol (Miralax (For Daily Use) -) 17 gm PO BID [facility] Last Admin: 08/17/19 11:17 Dose: Not Given Senna (Senna -) 2 tab PO HS [facility] Last Admin: 08/16/19 22:22 Dose: Not Given Torsemide (Demadex -) 40 mg PO DAILY [facility] Last Admin: 08/17/19 11:16 Dose: 40 mg Triamcinolone Acetonide (Aristocort 0.1% Cream -) 1 applic TP BID [facility] Last Admin: 08/17/19 11:16 Dose: Not Given - Objective Vital Signs: Vital Signs Temperature 98.8 F 08/17/19 10:06 Pulse Rate 86 08/17/19 10:06 Respiratory Rate 20 08/17/19 10:06 Blood Pressure 137/81 08/17/19 10:06 O2 Sat by Pulse Oximetry (%) 98 08/16/19 21:00 Constitutional: Yes: No Distress, Calm Cardiovascular: Yes: S1, S2 Respiratory: Yes: Regular, CTA Bilaterally Gastrointestinal: Yes: Normal Bowel Sounds, Soft Musculoskeletal: Yes: Other Extremities: Yes: Other Neurological: Yes: Alert, Oriented Psychiatric: Yes: Alert, Oriented Labs: CBC, BMP 08/11/19 07:45 08/16/19 07:26 INR, PTT INR Cancelled 08/02/19 20:30 Assessment/Plan Problem List - Problems (1) Acute exacerbation of CHF (congestive heart failure) Code(s): I50.9 - HEART FAILURE, UNSPECIFIED Qualifiers: Heart failure type: unspecified Qualified Code(s): I50.9 - Heart failure, unspecified (2) Anasarca Code(s): R60.1 - GENERALIZED EDEMA (3) Pleural effusion Code(s): J90 - PLEURAL EFFUSION, NOT ELSEWHERE CLASSIFIED (4) Acute renal failure Code(s): N17.9 - ACUTE KIDNEY FAILURE, UNSPECIFIED (5) Acute renal failure superimposed on chronic kidney disease Code(s): N17.9 - ACUTE KIDNEY FAILURE, UNSPECIFIED; N18.9 - CHRONIC KIDNEY DISEASE, UNSPECIFIED (6) Anemia Code(s): D64.9 - ANEMIA, UNSPECIFIED cellulitis of the leg wound on the leg plan continue current mgmt rest as per the team
--- NOTE | 2019-08-17 16:25 | PN ---
Progress Note (short form) - Note Progress Note: Renal follow up for GENESIS on CKD Seen and examined at the bedside awake and alert no acute complaints Vital Signs Temperature 98.8 F 08/17/19 10:06 Pulse Rate 86 08/17/19 10:06 Respiratory Rate 20 08/17/19 10:06 Blood Pressure 137/81 08/17/19 10:06 O2 Sat by Pulse Oximetry (%) 98 08/16/19 21:00 Intake & Output 08/17/19 08/17/19 08/17/19 07:59 15:59 23:59 Intake Total 100 250 Balance 100 250 Weight 57.924 kg Intake: Oral 100 250 Other: Voiding Method Incontinent # Unmeasured Voids Void 1 1 Bowel Movement No Yes # Bowel Movements 1 Weight Measurement Method Standing Scale NAD on NC O2 RRR Dec BS mild abd distension + edema in LE CBC, BMP 08/11/19 07:45 08/16/19 07:26 Current Medications Acetaminophen (Tylenol -) 650 mg PO Q6H PRN PRN Reason: Fever Or Pain Calcium Carbonate (Os-Mauri 500mg -) 500 mg PO BID [facility] Last Admin: 08/17/19 11:15 Dose: 500 mg Cyclobenzaprine HCl (Cyclobenzaprine Hcl) 5 mg PO BID PRN PRN Reason: MUSCLE SPASMS Darbepoetin Nikolas (Aranesp -) 25 mcg SQ Q7D@1000 [facility] Last Admin: 08/14/19 11:23 Dose: 25 mcg Diphenhydramine HCl (Benadryl -) 25 mg PO Q6H PRN PRN Reason: FOR ITCHING Docusate Sodium (Colace -) 300 mg PO [facility] Last Admin: 08/16/19 22:22 Dose: Not Given Guaifenesin (Robitussin Dm -) 10 ml PO Q4H PRN PRN Reason: COUGH Insulin Aspart (Novolog Vial Sliding Scale -) 1 vial SQ [facility]; Protocol Last Admin: 08/17/19 11:32 Dose: 10 units Levothyroxine Sodium 50 mcg/ (Levothyroxine Sodium 12.5 mcg) 62.5 mcg PO DAILY@ 0700 [facility] Last Admin: 08/17/19 07:04 Dose: 62.5 mcg Metoprolol Succinate (Toprol Xl -) 25 mg PO DAILY [facility] Last Admin: 08/17/19 11:15 Dose: 25 mg Miscellaneous (Duragesic Patch Waste) 1 each [facility] PRN PRN PRN Reason: PAIN Ondansetron HCl (Zofran Injection) 4 mg IVPB Q6H PRN PRN Reason: NAUSEA Last Admin: 08/09/19 14:23 Dose: 4 mg Pantoprazole Sodium (Protonix -) 40 mg PO DAILY [facility] Last Admin: 08/17/19 11:15 Dose: 40 mg Polyethylene Glycol (Miralax (For Daily Use) -) 17 gm PO BID [facility] Last Admin: 08/17/19 11:17 Dose: Not Given Senna (Senna -) 2 tab PO HS [facility] Last Admin: 08/16/19 22:22 Dose: Not Given Torsemide (Demadex -) 40 mg PO DAILY [facility] Last Admin: 08/17/19 11:16 Dose: 40 mg Triamcinolone Acetonide (Aristocort 0.1% Cream -) 1 applic TP BID [facility] Last Admin: 08/17/19 11:16 Dose: Not Given 53 year old woman with history of CKD (baseline Cr 1.4-1.5), CHF, ETOH abuse, DM , Hypertension, hyperlipidemia, breast cancer s/p bilateral mastecotm, scleroderma and psoriasis presented from home with erythema in LE and noted to have Cr of 2.3. 1. Acute kidney injury in setting of fluid overload/CHF 2. CKD stage 3 3. Hx of CHF 4. Edema of LE 5. cellulitis of LE Renal function now improved as of yesterday Clinically stable Serologic studies have been negative thus far. Continue Torsemide 40mg Daily for edema management Dose all meds for Cr Cl < 20 avoid IV contrast, NSAIDs or other nephrotoxins Trend renal function and electrolytes daily stable for discharge with close outpatient follow up Thank you Efraín Barillas DO
[2019-08-17] MEDS ORDERED: INSULIN (NOVOLOG) ASPART 100 UNITS/ML 10ML VIAL SQ ONE (21:35)
[2019-08-17] MEDS: DOCUSATE SODIUM 100 MG CAPSULE (FP) PO SCH (21:43)
[2019-08-17] MEDS: SENNOSIDES 8.6MG TABLET (FP) PO SCH (21:44)
[2019-08-18] MEDS: diphenhydrAMINE HCL 25 MG CAPSULE (FP) PO PRN ×2 (02:57→10:14)
[2019-08-18 05:51] VITALS: TEMP 98.9
[2019-08-18] MEDS ORDERED: LEVOTHYROXINE NA 50 MCG TABLET (FP) ONE (05:58)
[2019-08-18] MEDS ORDERED: LEVOTHYROXINE NA 25 MCG TABLET (FP) ONE (05:58)
[2019-08-18] MEDS: INSULIN SLIDING SCALE (NOVOLOG) 1 VIAL SQ SCH (06:27)
[2019-08-18] MEDS: LEVOTHYROXINE PO SCH (06:29)
[2019-08-18] MEDS ORDERED: PT OWN MED DRAWER 7, Y5N ONE (10:06)
[2019-08-18 10:13] VITALS: BP 139/86; PULSE 101
[2019-08-18] MEDS: PANTOPRAZOLE 40 MG TABLET (FP) PO SCH (10:14)
[2019-08-18] MEDS: metoPROLOL SUCCINATE 25 MG TAB.SR.24H (FP) PO SCH (10:14)
[2019-08-18] MEDS: CALCIUM (OYSTER SHELL) 500 MG TABLET (FP) PO SCH (10:14)
[2019-08-18] MEDS: POLYETHYLENE GLYCOL 3350 119 GM BTL PO SCH (10:15)
[2019-08-18] MEDS: TORSEMIDE 20 MG TABLET (FP) PO SCH (10:16)
[2019-08-18] MEDS: TRIAMCINOLONE ACET 0.1% CREAM 15 GM TUBE TP SCH (10:25)
--- NOTE | 2019-08-18 13:33 | PN ---
Progress Note (short form) - Note Progress Note: back pain better with pain meds feeling better walked with PT with walker Vital Signs - 24 hr 08/17/19 08/17/19 08/18/19 18:00 21:00 00:00 Temperature 98.2 F Pulse Rate 94 H 89 Respiratory 20 20 20 Rate Blood Pressure 129/71 141/81 O2 Sat by Pulse 96 Oximetry (%) 08/18/19 08/18/19 08/18/19 05:50 10:10 10:40 Temperature 98.9 F 98.9 F Pulse Rate 91 H 101 H Respiratory 20 20 Rate Blood Pressure 142/79 139/86 O2 Sat by Pulse 93 L Oximetry (%) Laboratory Results - last 24 hr 08/17/19 08/17/19 08/17/19 16:17 21:11 22:00 POC Glucometer 200 447 Random Glucose 472 H* 08/18/19 05:55 POC Glucometer 272 Random Glucose MRI- LS spine noted CT abd /pelvis repeated culture --noted S1 S2 irregular lungs decreased abd-- decreased edema, NT tender lower back legs -- wound healed right left -- no wounds decreased edema PLAN CHF systolic decompensation-- -- previous echo from April noted -- EF 35% -- no iv access --> dc lasix--> tolerating Torsemide PO -- monitor output Cellulitis -- off iv antibiotics -- ID eval noted -- wound care renal failure -- acute on chronic-->creatinine better at 2.7 --monitor labs -- off lasix --continue Torsemide -- creatinine stable Back pain -- h/o breast CA -- c/o severe pain -- on Fentanyl patch -- PT eval repeat CT abd-- same dc planning to rehab -->awaiting authorization -->dc today no further dressing for legs Problem List - Problems (1) Acute exacerbation of CHF (congestive heart failure) Code(s): I50.9 - HEART FAILURE, UNSPECIFIED Qualifiers: Heart failure type: unspecified Qualified Code(s): I50.9 - Heart failure, unspecified (2) Anasarca Code(s): R60.1 - GENERALIZED EDEMA (3) Pleural effusion Code(s): J90 - PLEURAL EFFUSION, NOT ELSEWHERE CLASSIFIED (4) Acute renal failure Code(s): N17.9 - ACUTE KIDNEY FAILURE, UNSPECIFIED (5) Acute renal failure superimposed on chronic kidney disease Code(s): N17.9 - ACUTE KIDNEY FAILURE, UNSPECIFIED; N18.9 - CHRONIC KIDNEY DISEASE, UNSPECIFIED (6) Anemia Code(s): D64.9 - ANEMIA, UNSPECIFIED
== END 2019-08-18 11:59 | DRG 291 ==
LOC: JER 18:42 → JERBED 23:54 → J5S 08-03 15:11
PROVIDERS: ADMIT Internal Medicine; ATTEND Internal Medicine
DX: I13.0 Hypertensive heart and chronic kidney disease with heart failure and stage 1 through stage 4 chronic kidney disease, or unspecified chronic kidney disease (principal); I50.23 Acute on chronic systolic (congestive) heart failure; J90 Pleural effusion, not elsewhere classified; N17.9 Acute kidney failure, unspecified; N39.0 Urinary tract infection, site not specified; E87.1 Hypo-osmolality and hyponatremia; L03.90 Cellulitis, unspecified; R60.1 Generalized edema; E11.9 Type 2 diabetes mellitus without complications; E78.5 Hyperlipidemia, unspecified; E03.9 Hypothyroidism, unspecified; M34.9 Systemic sclerosis, unspecified; E87.70 Fluid overload, unspecified; N18.3 Chronic kidney disease, stage 3 (moderate); I27.20 Pulmonary hypertension, unspecified; D63.1 Anemia in chronic kidney disease; R31.9 Hematuria, unspecified; Z85.3 Personal history of malignant neoplasm of breast
CPT/HCPCS: 36415; 71045-TC-FY; 72148-TC; 74176-TC; 80048; 80053; 81003; 82550; 82728; 82947; 82962; 83520; 83540; 83550; 83605; 83690; 83735; 83880; 84100; 84439; 84443; 84484; 85025; 85027; 86038; 86060; 86256; 87040; 87086; 87186; 93005; 93010; 97116-GP; 97161-GP; 99283-25; G0008; J0881; J1644; Q2036; Q9967

== ENCOUNTER → 2019-12-06 | Day surgery (SDC) | payer OTHER ==
--- NOTE | 2019-12-07 15:56 | PATH ---
Surgical Pathology Report Patient Name: CATHRYN KHAN [facility]. Rec. #: [id number] /Age/Gender: 1965 (Age: 54) / F Account: [id number] Location: [facility] Taken: 12/06/2019 Received: 12/06/2019 Reported: 12/07/2019 Physicians: Willy Dominguez M.D. Specimen(s) Received AXILLA/ARMPIT MASS, LEFT Clinical History Palpable mass left posterior axilla mass Final Diagnosis AXILLA/ARMPIT MASS, POSTERIOR, LEFT, WITH CALCIFICATION, ULTRASOUND GUIDED CORE BIOPSY: FIBROADIPOSE TISSUE WITH FAT NECROSIS, ASSOCIATED DYSTROPHIC CALCIFICATION, AND SCANT SURROUNDING ATROPHIC SKELETAL MUSCLE. NO MALIGNANCY IDENTIFIED. Electronically Signed Herlinda Menjivar M.D. Gross Description Received in formalin labeled "left axilla/armpit," are 5 vargas-yellow, cylindrical portions of fibroadipose tissue ranging from 0.2-1.2 cm in length and averaging 0.1 cm in diameter. The specimens are submitted in toto in one cassette. Time to formalin fixation: Less than one minute Total formalin fixation time: Approximately 8 hours. 12/06/201912/06/2019
== END | disposition home or self-care (01) ==
LOC: JRADUS-SUR 08:52 → JMAMMO-SUR 08:52
PROVIDERS: ATTEND Internal Medicine Hematology & Oncology
PROC: 0HBU3ZX Excision of Left Breast, Percutaneous Approach, Diagnostic (ICD-10-PCS; principal; 2019-12-06)
DX: N64.1 Fat necrosis of breast (principal); Z90.13 Acquired absence of bilateral breasts and nipples; B85.3 Phthiriasis; N63.22 Unspecified lump in the left breast, upper inner quadrant
CPT/HCPCS: 19083; 87899; 88305-TC